=== PATIENT | female | born 1965 | race African-American/Black ===

== ENCOUNTER 2016-05-03 02:52 | Emergency (ER) | payer MEDICAID ==
[2016-05-03] MEDS ORDERED: ASPIRIN 81 MG TABLET, CHEWABLE PO ONE (02:53)
[2016-05-03] MEDS ORDERED: MORPHINE SULFATE 10 MG/ML INJ IV ONE (03:06)
[2016-05-03] MEDS ORDERED: METOCLOPRAMIDE HCL INJ/PF 10 MG/2 ML SDV IV ONE (03:06)
--- NOTE | 2016-05-03 03:08 | ER Document Report ---
Addendum entered and electronically signed by JESSICA MARCELINO PA 05/03/16 07:00: Course - Re-evaluation Re-evalutation: 05/03/16 clarification note: Patient was given full 324 mg of aspirin by EMS before arriving to the emergency department. - Vital Signs Vital signs: Temp Pulse Resp BP Pulse Ox 98.2 F 104 H 13 144/98 H 93 05/03/16 03:05 05/03/16 03:05 05/03/16 06:01 05/03/16 06:01 05/03/16 06:01 - Laboratory Result Diagrams: 05/03/16 03:30 05/03/16 03:30 Laboratory results interpreted by me: 05/03/16 05/03/16 03:30 03:30 Hgb 11.1 L Hct 34.7 L Potassium 3.3 L Carbon Dioxide 31 H BUN 21 H Creatinine 2.22 H Est GFR ( Amer) 28 L Est GFR (Non-Af Amer) 23 L Alkaline Phosphatase 129 H Albumin 3.0 L Original Note: ED General - General Chief Complaint: Chest Pain Stated Complaint: CHEST PAIN Time seen by provider: 03:00 Notes: Patient is a 50-year-old female that comes to the emergency department by EMS for chief complaint of chest pain, she states the chest pain started during the morning of 05/02/2016, she states she was doing housework when the symptoms started, she states she has a sharp pain radiating from her lower sternum to her back and also down her abdomen all the way to her mid to lower abdomen. Patient states she has also had nausea. Patient denies shortness of breath other than when the pain is sharp. Patient states she has had negative cardiac catheter 2 years ago. Past history of hypertension, chronic back pain and on pain management. Patient regularly takes Reglan for nausea and also takes Valium. TRAVEL OUTSIDE OF THE [place] IN LAST 30 DAYS: No - Related Data Allergies/Adverse Reactions: codeine [Codeine] Allergy (Mild, Verified 05/03/16 04:12) Itching ketorolac tromethamine [From Toradol] Allergy (Unknown, Verified 05/03/16 04:12) nalbuphine HCl [From Nubain] Allergy (Unknown, Verified 05/03/16 04:12) ondansetron HCl [From Zofran] Allergy (Unknown, Verified 05/03/16 04:12) droperidol [Droperidol] Allergy (Verified 05/03/16 04:12) heart racing, doesn't like how it makes her feel Past Medical History - General Information source: Patient - Social History Smoking Status: Never Smoker Frequency of alcohol use: None Drug Abuse: None Lives with: Family Family History: Reviewed & Not Pertinent - Past Medical History Cardiac Medical History: Reports: Hx Coronary Artery Disease, Hx Hypercholesterolemia, Hx Hypertension Pulmonary Medical History: Reports: Hx Pneumonia, Hx Sleep Apnea Neurological Medical History: Reports: Hx Migraine Endocrine Medical History: Reports: Hx Diabetes Mellitus Type 2 Renal/ Medical History: Reports: Hx Renal Insufficiency - stage 3 according to patient GI Medical History: Reports: Hx Gastroesophageal Reflux Disease, Hx Irritable Bowel Musculoskeltal Medical History: Reports Hx Arthritis, Reports Hx Fibromyalgia, Reports Hx Musculoskeletal Deformity, Reports Hx Musculoskeletal Trauma Psychiatric Medical History: Reports: Hx Post Traumatic Stress Disorder Past Surgical History: Reports: Hx Appendectomy, Hx Cholecystectomy, Hx Hysterectomy, Hx Orthopedic Surgery - RIGHT ANKLE SURGERY 01/2011, Hx Thyroid Surgery, Hx Vascular Surgery - port a cath R upper chest - Immunizations Hx Diphtheria, Pertussis, Tetanus Vaccination: Yes Hx Pneumococcal Vaccination: 04/22/11 Review of Systems - Review of Systems Constitutional: No symptoms reported EENT: No symptoms reported Cardiovascular: See HPI Respiratory: See HPI Gastrointestinal: See HPI Genitourinary: No symptoms reported Female Genitourinary: No symptoms reported Musculoskeletal: See HPI Skin: No symptoms reported Hematologic/Lymphatic: No symptoms reported Neurological/Psychological: No symptoms reported Physical Exam - Vital signs Vitals: BP Pulse Ox 197/112 H 94 05/03/16 03:00 05/03/16 03:00 Interpretation: Normal - General General appearance: Appears well, Alert In distress: None - HEENT Head: Normocephalic, Atraumatic Eyes: Normal Pupils: PERRL - Respiratory Respiratory status: No respiratory distress Chest status: Tender - Tenderness over the sternal area and parasternal areas on both the right and left anterior chest wall, tenderness is mild, no deformity or crepitus Breath sounds: Normal. No: Decreased air movement, Wheezing Chest palpation: Normal - Cardiovascular Rhythm: Regular. No: Tachycardia Heart sounds: Normal auscultation, S1 appreciated, S2 appreciated Murmur: No - Abdominal Inspection: Normal Distension: No distension Bowel sounds: Normal Tenderness: Nontender - Completely soft and nontender abdomen. No: Tender, Guarding Organomegaly: No organomegaly - Back Back: Normal, Nontender - Extremities General upper extremity: Normal inspection, Nontender, Normal color, Normal ROM , Normal temperature General lower extremity: Normal inspection, Nontender, Normal color, Normal ROM , Normal temperature, Normal weight bearing. No: Hussein's sign - Neurological Neuro grossly intact: Yes Cognition: Normal Orientation: AAOx4 [place] Coma Scale Eye Opening: Spontaneous [place] Coma Scale Verbal: Oriented [place] Coma Scale Motor: Obeys Commands [place] Coma Scale Total: 15 Speech: Normal Motor strength normal: LUE, RUE, LLE, RLE Sensory: Normal - Psychological Associated symptoms: Normal affect, Normal mood - Skin Skin Temperature: Warm Skin Moisture: Dry Skin Color: Normal Course - Re-evaluation Re-evalutation: Patient treated with pain and nausea medication. Patient points to her sternum area when asked where she is having pain, this is reproducible with palpation over the chest wall. Abdominal exam is completely benign. EKG shows questionable very slight nonsignificant elevation of ST segment in lead V2, no consecutive leads elevation, no other abnormality or change noted from prior EKG. Discussed with Dr. Ayoub. Kidney function baseline, laboratory workup a sling, cardiac enzymes negative. Chest x-ray negative. Patient has been having symptoms for almost 20 hours now. On reexamination patient only has pain in her back which is reportedly chronic. Discussed with Dr. Ayoub, recommendation that because of time. Monitoring, negative workup, nonspecific symptoms, reproducible chest wall pain, patient will be treated with lidocaine patches over the chest for chest wall pain, recommended follow-up closely with cardiology, and return for any concerning symptoms. Discussed in detail with patient who states understanding and agreement. - Vital Signs Vital signs: Temp Pulse Resp BP Pulse Ox 98.2 F 104 H 13 144/98 H 93 05/03/16 03:05 05/03/16 03:05 05/03/16 06:01 05/03/16 06:01 05/03/16 06:01 - Laboratory Result Diagrams: 05/03/16 03:30 05/03/16 03:30 Laboratory results interpreted by me: 05/03/16 05/03/16 03:30 03:30 Hgb 11.1 L Hct 34.7 L Potassium 3.3 L Carbon Dioxide 31 H BUN 21 H Creatinine 2.22 H Est GFR ( Amer) 28 L Est GFR (Non-Af Amer) 23 L Alkaline Phosphatase 129 H Albumin 3.0 L Discharge - Discharge Clinical Impression: Chest wall pain Chest pain Qualifiers: Chest pain type: unspecified Qualified Code(s): R07.9 - Chest pain, unspecified Condition: Stable Disposition: HOME, SELF-CARE Additional Instructions: Your heart workup does not show any acute abnormalities. Apply patches as directed if needed for your chest wall. Continue your current pain medication. Follow-up on Wednesday with Cardiology in [place]. Return to the emergency department for any concerning or worsening symptoms. Prescriptions: Lidocaine [Lidoderm 5% (700 mg) Transdermal Patch] 1 patch TP DAILY #30 adh..patch
[2016-05-03 03:46] LABS: ABSOLUTE EOSINOPHILS # (AUTO) 0.2 10^3/uL (0.0-0.6); ABSOLUTE MONOCYTES (AUTO) 0.5 10^3/uL (0.1-1.4); BASOPHILS % (AUTO) 0.5 % (0-2); EOSINOPHILS % (AUTO) 3.6 % (0-6); HEMATOCRIT 34.7 % (36.0-47.0); HEMOGLOBIN 11.1 g/dL (12.0-15.5); HGB HCT DIFFERENCE -1.4; MEAN CORPUSCULAR HGB CONC 32.1 g/dL (32.0-36.0); MEAN CORPUSCULAR VOLUME 84 fl (80-97); MONOCYTES % (AUTO) 8.8 % (3-13); RED BLOOD COUNT 4.12 10^6/uL (3.72-5.28); RED CELL DISTRIBUTION WIDTH 13.8 % (11.5-14.0); SEGMENTED NEUTROPHILS % (AUTO) 52.1 % (42-78); WHITE BLOOD COUNT 5.7 10^3/uL (4.0-10.5)
[2016-05-03] MEDS ORDERED: DIPHENHYDRAMINE HCL 50 MG/ML VIAL IV ONE (03:46)
[2016-05-03 04:03] LABS: ALANINE AMINOTRANSFERASE 19 U/L (9-52); ALKALINE PHOSPHATASE 129 U/L (38-126); ANION GAP 10 (5-19); ASPARTATE AMINO TRANSFERASE 21 U/L (14-36); BILIRUBIN,TOTAL 0.3 mg/dL (0.2-1.3); BLOOD UREA NITROGEN 21 mg/dL (7-20); CALCIUM 8.5 mg/dL (8.4-10.2); CARBON DIOXIDE 31 mmol/L (22-30); CHLORIDE 102 mmol/L (98-107); CREATINE KINASE 126 U/L (30-135); CREATININE RESULT 2.22 mg/dL (0.52-1.25); GLUCOSE 105 mg/dL (75-110); LIPASE 111.9 U/L (23-300); POTASSIUM 3.3 mmol/L (3.6-5.0); SODIUM 143.2 mmol/L (137-145); TOTAL PROTEIN 6.4 g/dL (6.3-8.2)
[2016-05-03 04:10] LABS: CREATINE KINASE MB 0.43 ng/mL (<4.55)
[2016-05-03 04:14] LABS: TROPONIN I < 0.012 ng/mL
[2016-05-03] MEDS ORDERED: FENTANYL CITRATE INJ/PF 100 MCG/2 ML AMPUL IV ONE (05:30)
[2016-05-03 07:04] VITALS: BP 127/93
--- NOTE | 2016-05-03 10:05 | EKG REPORT ---
SEVERITY:- BORDERLINE ECG - SINUS RHYTHM PROBABLE LEFT ATRIAL ABNORMALITY BORDERLINE T WAVE ABNORMALITIES : Confirmed by: Abigail Mandel MD 03-May-2016 10:05:01
== END 2016-05-03 07:40 | disposition home or self-care (01) ==
LOC: ER 02:52
DX: R07.89 Other chest pain (principal); R11.0 Nausea; E11.9 Type 2 diabetes mellitus without complications; I25.10 Atherosclerotic heart disease of native coronary artery without angina pectoris; I10 Essential (primary) hypertension; M54.9 Dorsalgia, unspecified; G89.29 Other chronic pain; Z79.899 Other long term (current) drug therapy; Z88.5 Allergy status to narcotic agent; Z88.8 Allergy status to other drugs, medicaments and biological substances; Z87.01 Personal history of pneumonia (recurrent)
CPT/HCPCS: 93005; 36591; 99285; 96374; 96375; 36415; 82553; 82550; 83690; 85025; 80053; 84484; 71010; 93010; J1200; J3010; J2765; J2270

== ENCOUNTER → 2016-06-08 | Outpatient (CLI) | payer MEDICAID ==
[2016-06-08 08:25] LABS: ABSOLUTE EOSINOPHILS # (AUTO) 0.1 10^3/uL (0.0-0.6); ABSOLUTE LYMPHOCYTES (AUTO) 1.9 10^3/uL (0.5-4.7); ABSOLUTE MONOCYTES (AUTO) 0.4 10^3/uL (0.1-1.4); ABSOLUTE NEUT (AUTO) 2.1 10^3/uL (1.7-8.2); BASOPHILS % (AUTO) 0.9 % (0-2); EOSINOPHILS % (AUTO) 3.1 % (0-6); HEMATOCRIT 39.2 % (36.0-47.0); HGB HCT DIFFERENCE -0.2; LYMPHOCYTES % (AUTO) 41.9 % (13-45); MEAN CORPUSCULAR HEMOGLOBIN 27.7 pg (27.0-33.4); MEAN CORPUSCULAR HGB CONC 33.1 g/dL (32.0-36.0); MEAN CORPUSCULAR VOLUME 84 fl (80-97); MONOCYTES % (AUTO) 9.1 % (3-13); RED BLOOD COUNT 4.69 10^6/uL (3.72-5.28); WHITE BLOOD COUNT 4.6 10^3/uL (4.0-10.5)
[2016-06-08 08:33] LABS: ALANINE AMINOTRANSFERASE 26 U/L (9-52); ALBUMIN 3.5 g/dL (3.5-5.0); ALKALINE PHOSPHATASE 139 U/L (38-126); ANION GAP 8 (5-19); ASPARTATE AMINO TRANSFERASE 22 U/L (14-36); BILIRUBIN,TOTAL 0.5 mg/dL (0.2-1.3); BLOOD UREA NITROGEN 29 mg/dL (7-20); CALCIUM 9.2 mg/dL (8.4-10.2); CARBON DIOXIDE 31 mmol/L (22-30); CHLORIDE 102 mmol/L (98-107); CREATININE RESULT 2.35 mg/dL (0.52-1.25); GLUCOSE 137 mg/dL (75-110); HEMATOCRIT 39.2 % (36.0-47.0); HGB HCT DIFFERENCE -0.2; MEAN CORPUSCULAR HEMOGLOBIN 27.7 pg (27.0-33.4); MEAN CORPUSCULAR HGB CONC 33.1 g/dL (32.0-36.0); MEAN CORPUSCULAR VOLUME 84 fl (80-97); POTASSIUM 4.2 mmol/L (3.6-5.0); RED BLOOD COUNT 4.69 10^6/uL (3.72-5.28); SODIUM 140.9 mmol/L (137-145); TOTAL PROTEIN 7.4 g/dL (6.3-8.2); URIC ACID 7.9 mg/dL (2.5-7.5); WHITE BLOOD COUNT 4.6 10^3/uL (4.0-10.5)
[2016-06-08 08:43] LABS: ALBUMIN 3.5 g/dL (3.5-5.0); ALKALINE PHOSPHATASE 139 U/L (38-126); ANION GAP 8 (5-19); ASPARTATE AMINO TRANSFERASE 22 U/L (14-36); BLOOD UREA NITROGEN 29 mg/dL (7-20); CALCIUM 9.2 mg/dL (8.4-10.2); CARBON DIOXIDE 31 mmol/L (22-30); CHLORIDE 102 mmol/L (98-107); CREATININE RESULT 2.35 mg/dL (0.52-1.25); GLUCOSE 137 mg/dL (75-110); POTASSIUM 4.2 mmol/L (3.6-5.0); SODIUM 140.9 mmol/L (137-145)
[2016-06-08 08:44] LABS: ALANINE AMINOTRANSFERASE 26 U/L (9-52); BILIRUBIN,TOTAL 0.5 mg/dL (0.2-1.3); TOTAL PROTEIN 7.4 g/dL (6.3-8.2); VALPROIC ACID 40.5 ug/mL (50.0-120.0)
[2016-06-08 09:05] LABS: ERYTHROCYTE SEDIMENTATION RATE 35 mm/hr (0-30)
== END ==
LOC: OD 07:35
PROVIDERS: ATTEND Nurse Practitioner Psychiatric/Mental Health
DX: M06.9 Rheumatoid arthritis, unspecified (principal); M54.5 Low back pain; M25.561 Pain in right knee; M25.562 Pain in left knee; M25.511 Pain in right shoulder; Z79.899 Other long term (current) drug therapy
CPT/HCPCS: 36415; 80053; 80164; 82140; 84550; 85025; 85027; 85652; 86038; 86430

== ENCOUNTER → 2016-06-13 | Outpatient (CLI) | payer MEDICAID | LOC: RAD 11:00 | PROVIDERS: ATTEND Physician Assistant | DX: M19.012 Primary osteoarthritis, left shoulder (principal); M25.512 Pain in left shoulder; M75.102 Unspecified rotator cuff tear or rupture of left shoulder, not specified as traumatic ==

== ENCOUNTER 2016-10-01 11:36 | Emergency (ER) | payer MEDICAID ==
--- NOTE | 2016-10-01 13:42 | ER Document Report ---
ED Extremity Problem, Lower - General Chief Complaint: Knee Pain Stated Complaint: RIGHT KNEE PAIN AND SWELLING Time Seen by Provider: 10/01/16 13:20 Mode of Arrival: Ambulatory Information source: Patient Notes: 51 yo female with 3rd episode of right knee pain. Hx arthritis, not gout. Recent left shoulder revision. No chest pain or SOB. No hx PE TRAVEL OUTSIDE OF THE [place] IN LAST 30 DAYS: No - Related Data Allergies/Adverse Reactions: codeine [Codeine] Allergy (Mild, Verified 05/03/16 04:12) Itching ketorolac tromethamine [From Toradol] Allergy (Unknown, Verified 05/03/16 04:12) nalbuphine HCl [From Nubain] Allergy (Unknown, Verified 05/03/16 04:12) ondansetron HCl [From Zofran] Allergy (Unknown, Verified 05/03/16 04:12) droperidol [Droperidol] Allergy (Verified 05/03/16 04:12) heart racing, doesn't like how it makes her feel Past Medical History - General Information source: Patient - Social History Smoking Status: Never Smoker Chew tobacco use (# tins/day): No Frequency of alcohol use: None Drug Abuse: None Lives with: Family Family History: Reviewed & Not Pertinent Patient has suicidal ideation: No Patient has homicidal ideation: No - Past Medical History Cardiac Medical History: Reports: Hx Coronary Artery Disease, Hx Hypercholesterolemia, Hx Hypertension Pulmonary Medical History: Reports: Hx Pneumonia, Hx Sleep Apnea Neurological Medical History: Reports: Hx Migraine Endocrine Medical History: Reports: Hx Diabetes Mellitus Type 2 Renal/ Medical History: Reports: Hx Renal Insufficiency - stage 3 according to patient. Denies: Hx Peritoneal Dialysis GI Medical History: Reports: Hx Gastroesophageal Reflux Disease, Hx Irritable Bowel Musculoskeltal Medical History: Reports Hx Arthritis, Reports Hx Fibromyalgia, Reports Hx Musculoskeletal Deformity, Reports Hx Musculoskeletal Trauma Psychiatric Medical History: Reports: Hx Post Traumatic Stress Disorder Past Surgical History: Reports: Hx Appendectomy, Hx Cholecystectomy, Hx Hysterectomy, Hx Orthopedic Surgery - RIGHT ANKLE SURGERY 01/2011, shoulder surgery, Hx Thyroid Surgery, Hx Vascular Surgery - port a cath R upper chest - Immunizations Hx Diphtheria, Pertussis, Tetanus Vaccination: No Hx Pneumococcal Vaccination: 04/22/11 Review of Systems - Review of Systems Constitutional: No symptoms reported EENT: No symptoms reported Cardiovascular: No symptoms reported Respiratory: No symptoms reported Gastrointestinal: No symptoms reported Genitourinary: No symptoms reported Female Genitourinary: No symptoms reported Musculoskeletal: See HPI Skin: No symptoms reported Hematologic/Lymphatic: No symptoms reported Neurological/Psychological: No symptoms reported Physical Exam - Vital signs Vitals: Temp Pulse Resp BP Pulse Ox 98.6 F 92 22 H 133/86 H 98 10/01/16 11:51 10/01/16 11:51 10/01/16 11:51 10/01/16 11:51 10/01/16 11:51 Interpretation: Normal - General General appearance: Appears well, Alert In distress: None - HEENT Head: Normocephalic, Atraumatic Eyes: Normal Pupils: PERRL Neck: Supple - Respiratory Respiratory status: No respiratory distress Chest status: Nontender Breath sounds: Normal Chest palpation: Normal - Cardiovascular Rhythm: Regular Heart sounds: Normal auscultation Murmur: No - Abdominal Inspection: Normal Distension: No distension Bowel sounds: Normal Tenderness: Nontender Organomegaly: No organomegaly - Back Back: Normal, Nontender - Extremities General upper extremity: Normal inspection, Nontender, Normal color, Normal ROM , Normal temperature General lower extremity: Normal inspection, Nontender, Normal color, Normal ROM , Normal temperature, Normal weight bearing. No: Hussein's sign Knee: Joint effusion - mild, Pain with ROM - warm, not red Calf: Nontender - Neurological Neuro grossly intact: Yes Cognition: Normal Orientation: AAOx4 [place] Coma Scale Eye Opening: Spontaneous [place] Coma Scale Verbal: Oriented Casandra Coma Scale Motor: Obeys Commands [place] Coma Scale Total: 15 Speech: Normal Motor strength normal: LUE, RUE, LLE, RLE Sensory: Normal - Psychological Associated symptoms: Normal affect, Normal mood - Skin Skin Temperature: Warm Skin Moisture: Dry Skin Color: Normal Course - Re-evaluation Re-evalutation: 10/01/16 15:34 Dr. Lopez called and the venous Doppler ultrasound is negative for DVT. The x-ray shows arthritis. CBC been added. 10/01/16 15:52 Added a uric acid. Ken bandage to the right knee and crutches. Prednisone for 4 days. Hemoglobin is 10.7 which is similar to 10.6 that she had October 2015, creatinine is 2.13, lower than -2015, renal insuff for several years 10/01/16 18:35 Patient called back and a uric acid is normal, she has an appointment on Wednesday with the orthopedist. - Vital Signs Vital signs: Temp Pulse Resp BP Pulse Ox 98.6 F 61 20 135/89 H 98 10/01/16 11:51 10/01/16 16:19 10/01/16 16:19 10/01/16 16:19 10/01/16 16:19 - Laboratory Result Diagrams: 10/01/16 14:45 10/01/16 14:30 Laboratory results interpreted by me: 10/01/16 10/01/16 10/01/16 14:30 14:30 14:45 Hgb 10.7 L Hct 33.0 L MCH 26.8 L RDW 14.3 H APTT 113.6 H BUN 26 H Creatinine 2.44 H Est GFR ( Amer) 25 L Est GFR (Non-Af Amer) 21 L Procedures - Immobilization Right Knee Time completed: 16:20 Pre-Proc Neuro Vasc Exam: Normal Immobilizer type: Ken wrap - padded, pt has walker at home, does not need the crutches Performed by: RN Post-Proc Neuro Vasc Exam: Normal Alignment checked and good: Yes Discharge - Discharge Clinical Impression: Arthritis of right knee, Chronic renal insufficiency Knee effusion Qualifiers: Laterality: right Qualified Code(s): M25.461 - Effusion, right knee Anemia Qualifiers: Anemia type: unspecified type Qualified Code(s): D64.9 - Anemia, unspecified Condition: Good Disposition: HOME, SELF-CARE Instructions: Use of Crutches ([facility]), Arthritis ([facility]), Steroid Medication Additional Instructions: elevate, cool compress crutches few days see the orthopedic doctor as planned on the to er sooner if worse prednisone for 3 more days Please complete the patient satisfaction survey if you get one, and return it.. If you do not receive a survey, then you can go to the [facility] website, [email or web address] and place your comments about your very good care. Thank you very much. It was a pleasure being your medical provider today. Prescriptions: Prednisone [Deltasone 20 mg Tablet] 40 mg PO DAILY #8 tablet Referrals: [facility]AL[facility],NO [Primary Care Provider] - Follow up as needed
--- NOTE | 2016-10-01 14:05 | RADIOLOGY REPORT (SQ) ---
EXAM DESCRIPTION: KNEE RIGHT 4 VIEWS COMPLETED DATE/TIME: 10/01/2016 1:46 pm REASON FOR STUDY: pain COMPARISON: None. NUMBER OF VIEWS: Four views. TECHNIQUE: AP, lateral, and both oblique radiographic images acquired of the right knee. LIMITATIONS: None. FINDINGS: MINERALIZATION: Normal. BONES: No acute fracture or dislocation. No worrisome bone lesions. Small osteophytes. JOINT: No effusion. No chondrocalcinosis. OTHER: No other significant finding. IMPRESSION: MILD DEGENERATIVE CHANGE. NO ACUTE FINDINGS. TECHNICAL DOCUMENTATION: JOB ID: [id number] [employer]- All Rights Reserved
[2016-10-01 15:00] LABS: PROTHROMBIN TIME 12.8 SEC (11.4-15.4)
[2016-10-01 15:03] LABS: PARTIAL THROMBOPLASTIN TIME 113.6 SEC (23.5-35.8)
[2016-10-01 15:35] LABS: ANION GAP 7 (5-19); BLOOD UREA NITROGEN 26 mg/dL (7-20); CALCIUM 8.5 mg/dL (8.4-10.2); CARBON DIOXIDE 30 mmol/L (22-30); CHLORIDE 105 mmol/L (98-107); CREATININE RESULT 2.44 mg/dL (0.52-1.25); GLUCOSE 90 mg/dL (75-110); SODIUM 142.4 mmol/L (137-145)
[2016-10-01] MEDS ORDERED: PREDNISONE 20 MG TABLET PO ONE (15:43)
[2016-10-01 15:44] LABS: ABSOLUTE EOSINOPHILS # (AUTO) 0.1 10^3/uL (0.0-0.6); ABSOLUTE LYMPHOCYTES (AUTO) 1.7 10^3/uL (0.5-4.7); ABSOLUTE MONOCYTES (AUTO) 0.5 10^3/uL (0.1-1.4); ABSOLUTE NEUT (AUTO) 2.2 10^3/uL (1.7-8.2); BASOPHILS % (AUTO) 0.7 % (0-2); EOSINOPHILS % (AUTO) 2.7 % (0-6); HEMOGLOBIN 10.7 g/dL (12.0-15.5); HGB HCT DIFFERENCE -0.9; LYMPHOCYTES % (AUTO) 36.6 % (13-45); MEAN CORPUSCULAR HEMOGLOBIN 26.8 pg (27.0-33.4); MEAN CORPUSCULAR HGB CONC 32.4 g/dL (32.0-36.0); MEAN CORPUSCULAR VOLUME 83 fl (80-97); MONOCYTES % (AUTO) 11.7 % (3-13); RED BLOOD COUNT 3.98 10^6/uL (3.72-5.28); RED CELL DISTRIBUTION WIDTH 14.3 % (11.5-14.0); SEGMENTED NEUTROPHILS % (AUTO) 48.3 % (42-78); WHITE BLOOD COUNT 4.6 10^3/uL (4.0-10.5)
--- NOTE | 2016-10-01 16:15 | XCELERA REPORT ---
[address] [address] Lower Extremity Venous Evaluation Name: DAREN ROSS Age: 51 yrs Gender: Female : 1965 Patient Status: Emergency Patient Location: ER Study Date: 10/01/2016 01:44 PM Procedure: Color flow and duplex imaging bilaterally of the veins of the lower extremities as well as the Common Femoral veins. Reason For Study: calf pain Ordering Physician: CASSIE ROBISON Performed By: Rachel Ramirez Right Sided Venous Evaluation Normal vessel filling wall to wall, compression and augmentation as well as Colour flow down to the infrageniculate veins. Left Sided Venous Evaluation Normal vessel filling wall to wall, compression and augmentation as well as Colour flow down to the infrageniculate veins. Critical Findings Called in to Lianne Tellez at about 1500. Interpretation Summary No duplex evidence of DVT or obstruction in the bilateral lower extremities. : CASSIE ROBISON > Kayode Lopez
[2016-10-01 16:21] VITALS: BP 135/89
== END 2016-10-01 16:10 | disposition home or self-care (01) ==
LOC: ER 11:36
DX: M17.11 Unilateral primary osteoarthritis, right knee (principal); M25.461 Effusion, right knee; M25.561 Pain in right knee; I12.9 Hypertensive chronic kidney disease with stage 1 through stage 4 chronic kidney disease, or unspecified chronic kidney disease; E11.22 Type 2 diabetes mellitus with diabetic chronic kidney disease; N18.3 Chronic kidney disease, stage 3 (moderate); D64.9 Anemia, unspecified; I25.10 Atherosclerotic heart disease of native coronary artery without angina pectoris; Z98.890 Other specified postprocedural states; Z88.5 Allergy status to narcotic agent; Z88.8 Allergy status to other drugs, medicaments and biological substances
CPT/HCPCS: 36591; 99284; 36415; 84550; 85025; 85610; 85730; 80048; 93970 ×2; 73564; J7512

== ENCOUNTER → 2016-11-12 | Outpatient (CLI) | payer MEDICAID ==
--- NOTE | 2016-11-12 10:06 | RADIOLOGY REPORT (SQ) ---
EXAM DESCRIPTION: MRI LT UPPER JOINT WITHOUT COMPLETED DATE/TIME: 11/12/2016 8:14 am REASON FOR STUDY: PAIN IN LEFT SHOULDER (M25.512) M25.512 PAIN IN LEFT SHOULDER COMPARISON: 06/13/2016 TECHNIQUE: Left shoulder images acquired and stored on PACS. Multiplanar imaging to include fat sens itive sequences such as T1, water sensitive sequences such as FST2/STIR, cartilage sensitive sequence s such as FSPD/gradient-echo sequences. LIMITATIONS: Susceptibility and motion artifact. FINDINGS: There are anchoring sutures from prior rotator cuff repair. Small amount of fluid surroun ding the cuff. Increased signal along the articular surface of the posterior supraspinatus/anterior infraspinatus. Questionable small bursal surface perforation series 8 image 10. No full-thickness t ear. Biceps labral attachment again not well defined. Attenuated extra-articular biceps in the bicipital groove. Advanced glenohumeral joint arthropathy with full-thickness defects in the glenoid cartilage. Subchondral edema humeral head especially anteriorly. Small glenohumeral joint effusion. IMPRESSION: 1. Technical limitations. There has been rotator cuff repair. Partial-thickness articular surface r ecurrent tear and suspected bursal surface perforation. No full-thickness tear identified. Peritend initis. 2. Advanced glenohumeral joint arthropathy. Small glenohumeral joint effusion. TECHNICAL DOCUMENTATION: JOB ID: [id number] [employer]- All Rights Reserved
== END ==
LOC: RAD 06:56
PROVIDERS: ATTEND Physician Assistant
DX: M25.512 Pain in left shoulder (principal)

== ENCOUNTER 2017-01-18 17:25 | Emergency (ER) | payer MEDICAID ==
[2017-01-18] MEDS ORDERED: NORMAL SALINE 500 ML IV PRN (18:34)
--- NOTE | 2017-01-18 18:35 | ER Document Report ---
ED Medical Screen (RME) - General Chief Complaint: Headache Stated Complaint: HEADACHE,NAUSEA Time Seen by Provider: 01/18/17 18:31 Mode of Arrival: Ambulatory Information source: Patient Notes: This is a 51-year-old female with a history of migraines (hypertension, borderline diabetes, chronic kidney disease. Patient presents with headache consistent with migraine for the past 2 and half days. She does states she has been under a lot of stress breath (her is going to get a CABG). This is not the worst headache of her life and she has had migraines which are persisted for weeks. She denies any fever, chills, or neck pain. TRAVEL OUTSIDE OF THE [place] IN LAST 30 DAYS: No - Related Data Allergies/Adverse Reactions: codeine [Codeine] Allergy (Mild, Verified 01/18/17 17:31) Itching ketorolac tromethamine [From Toradol] Allergy (Unknown, Verified 01/18/17 17:31) nalbuphine HCl [From Nubain] Allergy (Unknown, Verified 01/18/17 17:31) ondansetron HCl [From Zofran] Allergy (Unknown, Verified 01/18/17 17:31) droperidol [Droperidol] Allergy (Verified 01/18/17 17:31) heart racing, doesn't like how it makes her feel Past Medical History - Social History Chew tobacco use (# tins/day): No Frequency of alcohol use: None Drug Abuse: None - Past Medical History Cardiac Medical History: Reports: Hx Coronary Artery Disease, Hx Hypercholesterolemia, Hx Hypertension Pulmonary Medical History: Reports: Hx Pneumonia, Hx Sleep Apnea Neurological Medical History: Reports: Hx Migraine Endocrine Medical History: Reports: Hx Diabetes Mellitus Type 2 Renal/ Medical History: Reports: Hx Renal Insufficiency - stage 3 according to patient. Denies: Hx Peritoneal Dialysis GI Medical History: Reports: Hx Gastroesophageal Reflux Disease, Hx Irritable Bowel Musculoskeltal Medical History: Reports Hx Arthritis, Reports Hx Fibromyalgia, Reports Hx Musculoskeletal Deformity, Reports Hx Musculoskeletal Trauma Psychiatric Medical History: Reports: Hx Post Traumatic Stress Disorder Past Surgical History: Reports: Hx Appendectomy, Hx Cholecystectomy, Hx Hysterectomy, Hx Orthopedic Surgery - RIGHT ANKLE SURGERY 01/2011, shoulder surgery, Hx Thyroid Surgery, Hx Vascular Surgery - port a cath R upper chest - Immunizations Hx Diphtheria, Pertussis, Tetanus Vaccination: No History of Influenza Vaccine for 01/2017 - 06/2017 Season: Yes Physical Exam - Vital signs Vitals: Temp Pulse Resp BP Pulse Ox 98.6 F 64 18 183/89 H 98 01/18/17 17:33 01/18/17 17:33 01/18/17 17:33 01/18/17 17:33 01/18/17 17:33 Course - Vital Signs Vital signs: Temp Pulse Resp BP Pulse Ox 98.6 F 64 18 183/89 H 98 01/18/17 17:33 01/18/17 17:33 01/18/17 17:33 01/18/17 17:33 01/18/17 17:33
[2017-01-18] MEDS ORDERED: DIPHENHYDRAMINE HCL 50 MG/ML VIAL IV ONE (19:00)
[2017-01-18] MEDS ORDERED: PROCHLORPERAZINE EDISYLATE INJ 10 MG/2 ML VIAL IV ONE (19:00)
--- NOTE | 2017-01-18 19:01 | ER Document Report ---
HPI - HPI Patient complains to provider of: DUKES Onset: Other - 2.5 days Onset/Duration: Persistent Quality of pain: Achy Pain Level: 5 Context: Patient presents complaining of left sided headache pain for the past 2 and half days. Patient does report nausea and vomiting 4 episodes today. Patient denies any fever or head injury. Patient does complain of increased stress at home that she feels is causing her headache pain. Patient states that her is getting ready to have a CABG procedure performed and this is got her worried. Patient states that she does get migraine headaches periodically and feels that this pain is typical of headaches that she has had in the past. Associated Symptoms: Headache, Nausea, Vomiting. denies: Nonproductive cough, Productive cough, Earache, Fever Exacerbated by: Other - light and noise Relieved by: Denies Similar symptoms previously: Yes Recently seen / treated by doctor: No - ROS ROS below otherwise negative: Yes Systems Reviewed and Negative: Yes All other systems reviewed and negative - CONSTITUTIONAL Constitutional: DENIES: Fever - EENT EENT: DENIES: Sore Throat, Ear Pain - NEURO Neurology: REPORTS: Headache. DENIES: Weakness, Vision blurred, Dizzinesss / Vertigo - CARDIOVASCULAR Cardiovascular: DENIES: Chest pain - RESPIRATORY Respiratory: DENIES: Coughing - GASTROINTESTINAL Gastrointestinal: REPORTS: Nausea, Patient vomiting. DENIES: Abdominal Pain - REPRODUCTIVE Reproductive: DENIES: : - MUSCULOSKELETAL Musculoskeletal: DENIES: Extremity pain, Back Pain, Neck Pain - DERM Skin Color: Normal Skin Problems: None Past Medical History - General Information source: Patient - Social History Smoking Status: Never Smoker Chew tobacco use (# tins/day): No Frequency of alcohol use: None Drug Abuse: None Occupation: none Lives with: Spouse/Significant other Family History: Reviewed & Not Pertinent - Past Medical History Cardiac Medical History: Reports: Hx Coronary Artery Disease, Hx Hypercholesterolemia, Hx Hypertension Pulmonary Medical History: Reports: Hx Pneumonia, Hx Sleep Apnea Neurological Medical History: Reports: Hx Migraine Endocrine Medical History: Reports: Hx Diabetes Mellitus Type 2 Renal/ Medical History: Reports: Hx Renal Insufficiency - stage 3 according to patient. Denies: Hx Peritoneal Dialysis GI Medical History: Reports: Hx Gastroesophageal Reflux Disease, Hx Irritable Bowel Musculoskeltal Medical History: Reports Hx Arthritis, Reports Hx Fibromyalgia, Reports Hx Musculoskeletal Deformity, Reports Hx Musculoskeletal Trauma Psychiatric Medical History: Reports: Hx Post Traumatic Stress Disorder Past Surgical History: Reports: Hx Appendectomy, Hx Cholecystectomy, Hx Hysterectomy, Hx Orthopedic Surgery - RIGHT ANKLE SURGERY 01/2011, shoulder surgery, Hx Thyroid Surgery, Hx Vascular Surgery - port a cath R upper chest - Immunizations Hx Diphtheria, Pertussis, Tetanus Vaccination: No Hx Pneumococcal Vaccination: 04/22/11 Vertical Provider Document - CONSTITUTIONAL Agree With Documented VS: Yes Exam Limitations: No Limitations General Appearance: WD/WN, No Apparent Distress - INFECTION CONTROL TRAVEL OUTSIDE OF THE [place] IN LAST 30 DAYS: No - HEENT HEENT: Atraumatic, Normal ENT Exam, Normocephalic, PERRLA - NECK Neck: Normal Inspection, Supple, Other - No meningismus. negative: Lymphadenopathy-Left, Lymphadenopathy-Right - RESPIRATORY Respiratory: Breath Sounds Normal, No Respiratory Distress O2 Sat by Pulse Oximetry: 98 - CARDIOVASCULAR Cardiovascular: Regular Rate, Regular Rhythm, No Murmur - BACK Back: Normal Inspection - MUSCULOSKELETAL/EXTREMETIES Musculoskeletal/Extremeties: MAEW, FROM - NEURO Level of Consciousness: Awake, Alert, Appropriate Motor/Sensory: No Motor Deficit Notes: No focal neurologic deficit - DERM Integumentary: Warm, Dry, No Rash Course - Re-evaluation Re-evalutation: 01/18/17 21:18 Patient reports that she typically takes her nighttime dose of clonidine at 9: 00. Pt reports DUKES pain is down to 3/5 scale, pt would like additional medication. Will provide patient's evening dose of her blood pressure medication in addition to Tylenol to manage her headache symptoms. 01/18/17 22:19 Patient reports headache pain is resolved and is requesting to be discharged home. Patient reminded that she was given her evening dose of her blood pressure medicine so she will not need to take this when she gets home tonight. Patient verbalized understanding. Discussed plan of care with patient encourage patient to follow-up with her primary doctor as well as possible neurologist for further management of any chronic headache symptoms. - Vital Signs Vital signs: Temp Pulse Resp BP Pulse Ox 98.6 F 64 18 183/89 H 98 01/18/17 17:33 01/18/17 17:33 01/18/17 17:33 01/18/17 17:33 01/18/17 17:33 Discharge - Discharge Clinical Impression: Hx of essential hypertension Headache Qualifiers: Headache type: unspecified Headache chronicity pattern: acute headache Intractability: not intractable Qualified Code(s): R51 - Headache Condition: Stable Disposition: HOME, SELF-CARE Instructions: Intravenous Compazine for Headaches ([facility]), Use of Diphenhydramine , Headache ([facility]) Additional Instructions: Return immediately for any new or worsening symptoms Followup with your primary care provider, call tomorrow to make a followup appointment Your given your evening dose of your blood pressure medication, clonidine, he will not need to take this whenever he returned home tonight Forms: Elevated Blood Pressure Referrals: MARYNO [Primary Care Provider] - Follow up as needed JACKIE MUNOZ DO [NO LOCAL MD] - Follow up tomorrow WILLIE IRAHETA MD [ACTIVE STAFF] - Follow up in 3-5 days
[2017-01-18] MEDS ORDERED: CLONIDINE HCL 0.2 MG TABLET PO ONE (21:16)
[2017-01-18] MEDS ORDERED: ACETAMINOPHEN 325 MG TABLET PO ONE (21:18)
[2017-01-18 22:46] VITALS: BP 142/80
== END 2017-01-18 22:45 | disposition home or self-care (01) ==
LOC: ER 17:25
DX: R51 Headache (principal); I10 Essential (primary) hypertension; R11.2 Nausea with vomiting, unspecified; I25.10 Atherosclerotic heart disease of native coronary artery without angina pectoris; E78.00 Pure hypercholesterolemia, unspecified; E11.9 Type 2 diabetes mellitus without complications; Z95.1 Presence of aortocoronary bypass graft; Z90.49 Acquired absence of other specified parts of digestive tract; Z90.710 Acquired absence of both cervix and uterus
CPT/HCPCS: 36591; 99283; 96374; 96375; J3490 ×2; J1200; J0780; J7040

== ENCOUNTER 2017-02-08 12:24 | Emergency (ER) | payer MEDICAID ==
[2017-02-08] MEDS ORDERED: BUTALB/ACETAMINOPHEN/CAFFEINE 1 TAB EACH PO ONE (13:09)
--- NOTE | 2017-02-08 13:54 | RADIOLOGY REPORT (SQ) ---
EXAM DESCRIPTION: CHEST PA/LAT COMPLETED DATE/TIME: 02/08/2017 1:33 pm REASON FOR STUDY: sob COMPARISON: 05/20/2013, 11/20/2011 EXAM PARAMETERS: NUMBER OF VIEWS: two views TECHNIQUE: Digital Frontal and Lateral radiographic views of the chest acquired. RADIATION DOSE: NA LIMITATIONS: none FINDINGS: LUNGS AND PLEURA: No opacities, masses or pneumothorax. No pleural effusion. MEDIASTINUM AND HILAR STRUCTURES: No masses or contour abnormalities. HEART AND VASCULAR STRUCTURES: Heart normal size. No evidence for failure. BONES: Left humeral head replacement HARDWARE: Right-sided permanent central line tip superior vena cava. Clips right upper quadrant post cholecystectomy. OTHER: No other significant finding. IMPRESSION: No acute changes TECHNICAL DOCUMENTATION: JOB ID: [id number] [employer]- All Rights Reserved
--- NOTE | 2017-02-08 14:45 | ER Document Report ---
ED General - General Chief Complaint: Edema Stated Complaint: SWELLING IN LEGS Time Seen by Provider: 02/08/17 13:06 Mode of Arrival: Ambulatory Information source: Patient Notes: 51 yo non smoker, htn, non dm, hyperlipedemic female with bilateral lower legs swollen and ankles with painful walking-back of knees and bottoms of feeet, not as bad as yesterday. just had double bypass so has migraine headache. Due to his surgery she has been doing a lot of walking. Developed shortness of breath and midline retrosternal chest pain while sitting this morning at 8:30 am , constant like she couldn't get air in. Hx. 2 Cardiac cath negative 2015 in [place]. No HX PE. No fever. No recent URI. No n/v/d. TRAVEL OUTSIDE OF THE [place] IN LAST 30 DAYS: No - Related Data Allergies/Adverse Reactions: codeine [Codeine] Allergy (Mild, Verified 02/08/17 14:55) Itching ketorolac tromethamine [From Toradol] Allergy (Unknown, Verified 02/08/17 14:55) nalbuphine HCl [From Nubain] Allergy (Unknown, Verified 02/08/17 14:55) ondansetron HCl [From Zofran] Allergy (Unknown, Verified 02/08/17 14:55) droperidol [Droperidol] Allergy (Verified 02/08/17 14:55) heart racing, doesn't like how it makes her feel Past Medical History - General Information source: Patient - Social History Smoking Status: Never Smoker Frequency of alcohol use: None Drug Abuse: None Lives with: Spouse/Significant other Family History: Reviewed & Not Pertinent Patient has suicidal ideation: No Patient has homicidal ideation: No - Past Medical History Cardiac Medical History: Reports: Hx Coronary Artery Disease, Hx Hypercholesterolemia, Hx Hypertension Pulmonary Medical History: Reports: Hx Pneumonia, Hx Sleep Apnea Neurological Medical History: Reports: Hx Migraine Endocrine Medical History: Reports: Hx Diabetes Mellitus Type 2 - no meds Renal/ Medical History: Reports: Hx Renal Insufficiency - stage 3 according to patient GI Medical History: Reports: Hx Gastroesophageal Reflux Disease, Hx Irritable Bowel Musculoskeltal Medical History: Reports Hx Arthritis, Reports Hx Fibromyalgia, Reports Hx Musculoskeletal Deformity, Reports Hx Musculoskeletal Trauma Psychiatric Medical History: Reports: Hx Post Traumatic Stress Disorder Past Surgical History: Reports: Hx Appendectomy, Hx Cholecystectomy, Hx Hysterectomy, Hx Orthopedic Surgery - RIGHT ANKLE SURGERY 01/2011, shoulder surgery, Hx Thyroid Surgery, Hx Vascular Surgery - port a cath R upper chest - Immunizations Hx Diphtheria, Pertussis, Tetanus Vaccination: No Hx Pneumococcal Vaccination: 04/22/11 Review of Systems - Review of Systems Constitutional: See HPI EENT: No symptoms reported Cardiovascular: See HPI Respiratory: See HPI Gastrointestinal: No symptoms reported Genitourinary: No symptoms reported Female Genitourinary: No symptoms reported Musculoskeletal: No symptoms reported Skin: No symptoms reported Hematologic/Lymphatic: No symptoms reported Neurological/Psychological: See HPI Physical Exam - Vital signs Vitals: Temp Pulse Resp BP Pulse Ox 98.6 F 82 18 148/87 H 95 02/08/17 12:40 02/08/17 12:40 02/08/17 12:40 02/08/17 12:40 02/08/17 12:40 Interpretation: Normal - General General appearance: Appears well, Alert In distress: None - HEENT Head: Normocephalic, Atraumatic Eyes: Normal Conjunctiva: Normal Extraocular movements intact: Yes Pupils: PERRL Mucous membranes: Normal Pharynx: Normal Neck: Supple. No: Lymphadenopathy - Respiratory Respiratory status: No respiratory distress Chest status: Nontender Breath sounds: Normal Chest palpation: Normal - Cardiovascular Rhythm: Regular Heart sounds: Normal auscultation Murmur: No - Abdominal Inspection: Normal Distension: No distension Bowel sounds: Normal Tenderness: Nontender. No: Tender Organomegaly: No organomegaly - Back Back: Normal, Nontender. No: CVA tenderness - Extremities General upper extremity: Normal inspection, Nontender, Normal color, Normal ROM , Normal temperature General lower extremity: Normal inspection, Nontender, Edema - pitting edema both legs pretibial to ankles, 2+ PT's, Normal color, Normal ROM, Normal temperature, Normal weight bearing. No: Hussein's sign - Neurological Neuro grossly intact: Yes Cognition: Normal Orientation: AAOx4 [place] Coma Scale Eye Opening: Spontaneous Casandra Coma Scale Verbal: Oriented Casandra Coma Scale Motor: Obeys Commands [place] Coma Scale Total: 15 Speech: Normal Motor strength normal: LUE, RUE, LLE, RLE Sensory: Normal - Psychological Associated symptoms: Normal affect, Normal mood - Skin Skin Temperature: Warm Skin Moisture: Dry Skin Color: Normal Skin irregularity: negative: Rash Course - Re-evaluation Re-evalutation: 02/08/17 17:24 lung VQ scan is negative, chest xray is negative. Creatinine is more elevated at 3.12, BUN 27, troponin negative. EKG NSR. no change from previous EKG. will consult with dr. gutiérrez about dispo and call dr. castorena about the Creatinine. 02/08/17 17:[address] castorena again. 02/08/17 18:11 Dr. Castorena called back and he wants to see her in the office on Wednesday, she will have to call his office tomorrow morning and tell the front end ui developer that Dr. Castorena was notified in the emergency department and wants to see her Wednesday morning. He also wants her to have an outpatient form to get a CBC and Chem-7 on . 02/08/17 18:[address] gutiérrez if second troponin is negative and ekg no changes can be discharged home 02/08/17 18:53 ekg no change, dr. gutiérrez evaluated. 02/08/17 19:23 Second troponin is negative. Patient will be discharged home - Vital Signs Vital signs: Temp Pulse Resp BP Pulse Ox 98.6 F 82 11 L 116/84 93 02/08/17 12:40 02/08/17 12:40 02/08/17 19:01 02/08/17 19:01 02/08/17 19:01 - Laboratory Result Diagrams: 02/08/17 14:50 02/08/17 14:50 Laboratory results interpreted by me: 02/08/17 02/08/17 02/08/17 14:50 14:50 14:50 RBC 3.65 L Hgb 10.6 L Hct 31.7 L RDW 14.4 H Seg Neutrophils % 35.6 L Lymphocytes % 46.8 H Absolute Neutrophils 1.6 L D-Dimer 1.46 H Sodium 145.2 H BUN 27 H Creatinine 3.12 H Est GFR ( Amer) 19 L Est GFR (Non-Af Amer) 16 L Alkaline Phosphatase 165 H Creatine Kinase 216 H Discharge - Discharge Clinical Impression: Bilateral lower extremity edema, Shortness of breath, chronic renal insufficiency, Peripheral edema Headache Qualifiers: Headache type: unspecified Headache chronicity pattern: episodic headache Intractability: not intractable Qualified Code(s): R51 - Headache Chest pain Qualifiers: Chest pain type: unspecified Qualified Code(s): R07.9 - Chest pain, unspecified Anemia Qualifiers: Anemia type: unspecified type Qualified Code(s): D64.9 - Anemia, unspecified Condition: Good Disposition: HOME, SELF-CARE Instructions: Intravenous Compazine for Headaches ([facility]), Chest Pain of Unclear Cause ([facility]), Use of Diphenhydramine, Edema, Peripheral ([facility]), Migraine Headache ([facility]), Reglan ([facility]) Additional Instructions: return to er if symptoms worsen elevate legs on pillows while reclined call dr. castorena in the morning for appt on wednesday, tell the front end ui developer that he spoke with the nurse practitioner and he wants to see her wednesday take your headache medications see your doctor at [facility] in [place] and take all the labwork, ekg, imaging studies Please complete the patient satisfaction survey if you get one, and return it.. If you do not receive a survey, then you can go to the [facility] website, [email or web address] and place your comments about your very good care. Thank you very much. It was a pleasure being your medical provider today. Forms: Follow-Up Laboratory Testing Referrals: Adelia CASTORENA MD [ACTIVE STAFF] - 02/12/17 (call dr. castorena office in the morning for wednesday appt. make sure you tell the staff that dr. castorena spoke with the MACHINE FILLER SHREDDER in the ER and wants to see you then)
[2017-02-08] MEDS ORDERED: PROCHLORPERAZINE EDISYLATE INJ 10 MG/2 ML VIAL IV ONE (14:50)
[2017-02-08] MEDS ORDERED: DIPHENHYDRAMINE HCL 50 MG/ML VIAL IV ONE ×2 (14:50→18:15)
[2017-02-08] MEDS ORDERED: ASPIRIN 81 MG TABLET, CHEWABLE PO ONE (14:56)
[2017-02-08 15:01] LABS: ABSOLUTE EOSINOPHILS # (AUTO) 0.2 10^3/uL (0.0-0.6); ABSOLUTE LYMPHOCYTES (AUTO) 2.1 10^3/uL (0.5-4.7); ABSOLUTE MONOCYTES (AUTO) 0.6 10^3/uL (0.1-1.4); ABSOLUTE NEUT (AUTO) 1.6 10^3/uL (1.7-8.2); BASOPHILS % (AUTO) 0.6 % (0-2); EOSINOPHILS % (AUTO) 4.6 % (0-6); HEMATOCRIT 31.7 % (36.0-47.0); HEMOGLOBIN 10.6 g/dL (12.0-15.5); HGB HCT DIFFERENCE 0.1; LYMPHOCYTES % (AUTO) 46.8 % (13-45); MEAN CORPUSCULAR HEMOGLOBIN 28.9 pg (27.0-33.4); MEAN CORPUSCULAR HGB CONC 33.3 g/dL (32.0-36.0); MEAN CORPUSCULAR VOLUME 87 fl (80-97); MONOCYTES % (AUTO) 12.4 % (3-13); RED BLOOD COUNT 3.65 10^6/uL (3.72-5.28); RED CELL DISTRIBUTION WIDTH 14.4 % (11.5-14.0); SEGMENTED NEUTROPHILS % (AUTO) 35.6 % (42-78); WHITE BLOOD COUNT 4.5 10^3/uL (4.0-10.5)
[2017-02-08 15:21] LABS: ALANINE AMINOTRANSFERASE 26 U/L (9-52); ALBUMIN 3.7 g/dL (3.5-5.0); ALKALINE PHOSPHATASE 165 U/L (38-126); ANION GAP 9 (5-19); ASPARTATE AMINO TRANSFERASE 24 U/L (14-36); BILIRUBIN,DIRECT 0.4 mg/dL (0.0-0.4); BILIRUBIN,TOTAL 0.4 mg/dL (0.2-1.3); BLOOD UREA NITROGEN 27 mg/dL (7-20); CALCIUM 8.7 mg/dL (8.4-10.2); CARBON DIOXIDE 30 mmol/L (22-30); CHLORIDE 106 mmol/L (98-107); CREATINE KINASE 216 U/L (30-135); CREATININE RESULT 3.12 mg/dL (0.52-1.25); GLUCOSE 105 mg/dL (75-110); POTASSIUM 4.4 mmol/L (3.6-5.0); SODIUM 145.2 mmol/L (137-145); TOTAL PROTEIN 7.4 g/dL (6.3-8.2)
[2017-02-08 15:33] LABS: CREATINE KINASE MB 1.61 ng/mL (<4.55)
[2017-02-08 15:34] LABS: TROPONIN I < 0.012 ng/mL
--- NOTE | 2017-02-08 17:13 | RADIOLOGY REPORT (SQ) ---
EXAM DESCRIPTION: NM LUNG VENT/PERF SCAN COMPLETED DATE/TIME: 02/08/2017 5:05 pm REASON FOR STUDY: chest pain, sob, d dime 1.47 COMPARISON: Chest films 02/08/2017, 05/03/2016 RADIONUCLIDE AND DOSE: 5.0 millicuries TC-99m MAA Intravenous 33 millicuries TC-99m DTPA Inhaled aerosol TECHNIQUE: Eight views of the lungs acquired post ventilation of DTPA aerosol. Eight matching views of the lungs acquired following injection of MAA. LIMITATIONS: None. FINDINGS: VENTILATION: Symmetric and homogeneous distribution of DTPA aerosol during ventilatory pha se. No significant areas of photopenia. PERFUSION: Perfusion images with normal homogenous activity and no wedge-shaped or segmental defects. No ventilation-perfusion mismatches. OTHER: No other significant finding. IMPRESSION: NORMAL VENTILATION-PERFUSION LUNG SCAN. NEGATIVE FOR PULMONARY EMBOLI. TECHNICAL DOCUMENTATION: JOB ID: [id number] [employer]- All Rights Reserved
[2017-02-08] MEDS ORDERED: METOCLOPRAMIDE HCL INJ/PF 10 MG/2 ML SDV IV ONE (17:27)
[2017-02-08] MEDS ORDERED: CLONIDINE HCL 0.2 MG TABLET PO ONE (17:56)
--- NOTE | 2017-02-08 19:12 | EKG REPORT ---
SEVERITY:- ABNORMAL ECG - SINUS RHYTHM CONSIDER LEFT VENTRICULAR HYPERTROPHY ST ELEVATION SUGGESTS [facility] : Confirmed by: Darwin Curiel 08-Feb-2017 19:11:38
--- NOTE | 2017-02-08 19:12 | EKG REPORT ---
SEVERITY:- ABNORMAL ECG - SINUS RHYTHM LEFT VENTRICULAR HYPERTROPHY : Confirmed by: Darwin Curiel 08-Feb-2017 19:11:42
[2017-02-08 19:58] VITALS: BP 116/84
== END 2017-02-08 19:50 | disposition home or self-care (01) ==
LOC: ER 12:24
DX: M79.89 Other specified soft tissue disorders (principal); R07.9 Chest pain, unspecified; D64.9 Anemia, unspecified; R06.02 Shortness of breath; R60.9 Edema, unspecified; E11.22 Type 2 diabetes mellitus with diabetic chronic kidney disease; I12.9 Hypertensive chronic kidney disease with stage 1 through stage 4 chronic kidney disease, or unspecified chronic kidney disease; N18.9 Chronic kidney disease, unspecified; I25.10 Atherosclerotic heart disease of native coronary artery without angina pectoris; E78.00 Pure hypercholesterolemia, unspecified; Z90.49 Acquired absence of other specified parts of digestive tract; Z90.710 Acquired absence of both cervix and uterus
CPT/HCPCS: 93005; 36591; 96376; 99285; 96374; 96375; 36415; 82553; 82550; 85025; 80053; 84484; 85379; 71020; 78582; 93010; A9540; A9567; J3490 ×2; J1200; J2765; J0780; Q9969

== ENCOUNTER → 2017-02-11 | Outpatient (CLI) | payer MEDICAID ==
[2017-02-11 11:53] LABS: HEMATOCRIT 30.1 % (36.0-47.0); HEMOGLOBIN 10.3 g/dL (12.0-15.5); HGB HCT DIFFERENCE 0.8; MEAN CORPUSCULAR HEMOGLOBIN 29.5 pg (27.0-33.4); MEAN CORPUSCULAR HGB CONC 34.3 g/dL (32.0-36.0); MEAN CORPUSCULAR VOLUME 86 fl (80-97); RED CELL DISTRIBUTION WIDTH 14.4 % (11.5-14.0); WHITE BLOOD COUNT 3.9 10^3/uL (4.0-10.5)
[2017-02-11 12:18] LABS: ANION GAP 8 (5-19); BLOOD UREA NITROGEN 26 mg/dL (7-20); CALCIUM 8.9 mg/dL (8.4-10.2); CARBON DIOXIDE 26 mmol/L (22-30); CHLORIDE 109 mmol/L (98-107); CREATININE RESULT 3.24 mg/dL (0.52-1.25); GLUCOSE 126 mg/dL (75-110); POTASSIUM 4.5 mmol/L (3.6-5.0); SODIUM 143.2 mmol/L (137-145)
== END ==
LOC: LAB 11:31
PROVIDERS: ATTEND Nurse Practitioner Family
DX: N18.9 Chronic kidney disease, unspecified (principal); R60.9 Edema, unspecified
CPT/HCPCS: 36415; 80048; 85027

== ENCOUNTER 2017-02-12 16:48 | Observation (INO) | payer MEDICAID ==
[2017-02-12] MEDS ORDERED: ACETAMINOPHEN 325 MG TABLET PO PRN (17:45)
[2017-02-12] MEDS ORDERED: HYDRALAZINE HCL INJ/PF 20 MG/1 ML SDV IV PRN (17:51)
[2017-02-12] MEDS ORDERED: CLONIDINE HCL 0.1 MG TABLET PO ONE (17:54)
[2017-02-12] MEDS ORDERED: OXYCODONE HCL IR 5 MG TABLET PO PRN (18:16)
[2017-02-12] MEDS ORDERED: DIPHENHYDRAMINE HCL 50 MG/ML VIAL IV ONE ×2 (18:24)
[2017-02-12] MEDS ORDERED: BUTALB/ACETAMINOPHEN/CAFFEINE 1 TAB EACH PO PRN (18:26)
[2017-02-12] MEDS ORDERED: MAGNESIUM SULFATE/D5W 1 GM/100 ML RTUPB IV SCH (18:30)
[2017-02-12] MEDS ORDERED: LORAZEPAM INJ 2 MG/1 ML VIAL IV ONE (18:31)
[2017-02-12] MEDS ORDERED: MORPHINE SULFATE 10 MG/ML INJ IV ONE (18:41)
[2017-02-12] MEDS ORDERED: DIAZEPAM 5 MG TABLET PO PRN (19:00)
[2017-02-12] MEDS ORDERED: INFLUENZA ADLT QUAD (36MOS+) 2017-18 VAC 0.5 ML SYR IM PRN (19:33)
[2017-02-12] MEDS: PROMETHAZINE HCL INJ 25 MG/1 ML VIAL IV PRN (21:11)
[2017-02-12 21:12] LABS: ABSOLUTE EOSINOPHILS # (AUTO) 0.1 10^3/uL (0.0-0.6); ABSOLUTE LYMPHOCYTES (AUTO) 1.5 10^3/uL (0.5-4.7); ABSOLUTE MONOCYTES (AUTO) 0.6 10^3/uL (0.1-1.4); ABSOLUTE NEUT (AUTO) 4.8 10^3/uL (1.7-8.2); BASOPHILS % (AUTO) 0.4 % (0-2); EOSINOPHILS % (AUTO) 1.8 % (0-6); HEMATOCRIT 31.1 % (36.0-47.0); HEMOGLOBIN 10.5 g/dL (12.0-15.5); HGB HCT DIFFERENCE 0.4; LYMPHOCYTES % (AUTO) 21.2 % (13-45); MEAN CORPUSCULAR HGB CONC 33.9 g/dL (32.0-36.0); MEAN CORPUSCULAR VOLUME 86 fl (80-97); MONOCYTES % (AUTO) 8.7 % (3-13); RED BLOOD COUNT 3.63 10^6/uL (3.72-5.28); RED CELL DISTRIBUTION WIDTH 13.9 % (11.5-14.0); SEGMENTED NEUTROPHILS % (AUTO) 67.9 % (42-78); WHITE BLOOD COUNT 7.1 10^3/uL (4.0-10.5)
[2017-02-12] MEDS: CLONIDINE HCL 0.1 MG TABLET PO SCH (21:14)
[2017-02-12] MEDS: GABAPENTIN 300 MG CAPSULE PO SCH (21:15)
[2017-02-12] MEDS: ESCITALOPRAM OXALATE 10 MG TABLET PO SCH (21:16)
[2017-02-12] MEDS ORDERED: NIFEDIPINE 30 MG TAB.ER.24 PO SCH (22:00)
[2017-02-12] MEDS ORDERED: LORAZEPAM INJ 2 MG/1 ML VIAL IV SCH (22:00)
[2017-02-12] MEDS ORDERED: ATORVASTATIN CALCIUM 40 MG TABLET PO SCH (22:00)
[2017-02-12] MEDS ORDERED: ZOLPIDEM TARTRATE 5 MG TABLET PO SCH (22:00)
[2017-02-12 22:02] LABS: ANION GAP 11 (5-19); BLOOD UREA NITROGEN 26 mg/dL (7-20); CALCIUM 8.8 mg/dL (8.4-10.2); CARBON DIOXIDE 28 mmol/L (22-30); CHLORIDE 106 mmol/L (98-107); CREATININE RESULT 3.03 mg/dL (0.52-1.25); GLUCOSE 182 mg/dL (75-110); PHOSPHORUS 4.3 mg/dL (2.5-4.5); POTASSIUM 3.9 mmol/L (3.6-5.0); SODIUM 144.7 mmol/L (137-145)
[2017-02-13] MEDS: METOCLOPRAMIDE HCL 10 MG TABLET PO SCH ×3 (00:18→12:10)
[2017-02-13] MEDS ORDERED: MAGNESIUM SULFATE/D5W 1 GM/100 ML RTUPB IV ONE (00:23)
[2017-02-13] MEDS ORDERED: MAGNESIUM SULFATE/D5W 1 GM/100 ML RTUPB IV SCH (00:45)
[2017-02-13] MEDS: PROMETHAZINE HCL INJ 25 MG/1 ML VIAL IV PRN (07:32)
[2017-02-13] MEDS: CLONIDINE HCL 0.1 MG TABLET PO SCH ×2 (07:33→13:08)
[2017-02-13] MEDS: OXYCODONE HCL IR 5 MG TABLET PO PRN ×2 (07:44→12:55)
--- NOTE | 2017-02-13 08:34 | RADIOLOGY REPORT (SQ) ---
EXAM DESCRIPTION: CT HEAD WITHOUT COMPLETED DATE/TIME: 02/13/2017 8:08 am REASON FOR STUDY: headache blurred vision facial numbness COMPARISON: 01/08/2014 TECHNIQUE: Axial images acquired through the brain without intravenous contrast. Images reviewed wi th bone, brain and subdural windows. Images stored on PACS. All CT scanners at this facility use dose modulation, iterative reconstruction, and/or weight based d osing when appropriate to reduce radiation dose to as low as reasonably achievable (ALARA). [facility]: Dose Right [facility]: CareDose [facility]: Dose Right [facility]: Teradose 4D [facility]: [employer] RADIATION DOSE: mGy. LIMITATIONS: None. FINDINGS: VENTRICLES: Normal size and contour. CEREBRUM: No masses. No hemorrhage. No midline shift. No evidence for acute infarction. Normal gra y/white matter differentiation. No areas of low density in the white matter. CEREBELLUM: No masses. No hemorrhage. No alteration of density. No evidence for acute infarction. EXTRAAXIAL SPACES: No fluid collections. No masses. ORBITS AND GLOBE: No intra- or extraconal masses. Normal contour of globe without masses. CALVARIUM: No fracture. PARANASAL SINUSES: No fluid or mucosal thickening. SOFT TISSUES: No mass or hematoma. OTHER: No other significant finding. IMPRESSION: NORMAL BRAIN CT WITHOUT CONTRAST. EVIDENCE OF ACUTE STROKE: NO. COMMENT: Quality ID # [id number]: Final reports with documentation of one or more dose reduction techniques (e.g., Automated exposure control, adjustment of the mA and/or kV according to patient size, use of iterative reconstruction technique) TECHNICAL DOCUMENTATION: JOB ID: [id number] [employer]- All Rights Reserved
[2017-02-13] MEDS: ESCITALOPRAM OXALATE 10 MG TABLET PO SCH (09:50)
[2017-02-13] MEDS: BACLOFEN 10 MG TABLET PO SCH ×2 (09:51→13:08)
[2017-02-13] MEDS: GABAPENTIN 300 MG CAPSULE PO SCH (09:51)
[2017-02-13] MEDS ORDERED: FUROSEMIDE INJ/PF 40 MG/4 ML SDV IV SCH (10:00)
[2017-02-13] MEDS ORDERED: AMLODIPINE BESYLATE 5 MG TABLET PO SCH (10:00)
[2017-02-13] MEDS ORDERED: HYDROMORPHONE HCL INJ/PF 2 MG/ML AMPULE IV ONE (10:30)
[2017-02-13] MEDS ORDERED: PROCHLORPERAZINE EDISYLATE INJ 10 MG/2 ML VIAL IV ONE (10:30)
[2017-02-13] MEDS ORDERED: PANTOPRAZOLE SODIUM 40 MG VIAL IV ONE (10:30)
[2017-02-13] MEDS ORDERED: DIPHENHYDRAMINE HCL 50 MG/ML VIAL IV ONE (10:30)
--- NOTE | 2017-02-13 11:48 | PDOC H&P ---
History of Present Illness Admission Date/PCP: 02/12/17 17:45 YONY DE LA GARZA NP Patient complains of: Elevated blood pressure with headache and blurred vision History of Present Illness: DAREN ROSS is a 51 year old female history of CKD stage III, hypertension, diabetes diet-controlled, fibromyalgia, depression, chronic pain patient is a direct admit from Dr. Castorena's office,nephrology, for hypertensive emergency. There patient stated that her blood pressures were in the 200 systolics. Patient states she has headaches despite having a history of migraines. Difference about her headache this time is that she has some right sided facial numbness and lip numbness. Patient also states that her vision is blurred. Patient does have some chest discomfort however this is chronic. Patient states that she just really wants something for headache. Patient states she normally gets Benadryl Compazine and some sort of narcotic through her port. Past Medical History Cardiac Medical History: Reports: Coronary Artery Disease, Hyperlipidema, Hypertension Pulmonary Medical History: Reports: Pneumonia, Sleep Apnea Neurological Medical History: Reports: Migraine Endocrine Medical History: Reports: Diabetes Mellitus Type 2 - no meds GI Medical History: Reports: Gastroesophageal Reflux Disease Musculoskeltal Medical History: Reports: Arthritis, Fibromyalgia Psychiatric Medical History: Reports: Post Traumatic Stress Disorder Past Surgical History Past Surgical History: Reports: Appendectomy, Cholecystectomy, Hysterectomy, Orthopedic Surgery - RIGHT ANKLE SURGERY 01/2011, shoulder surgery, Vascular Surgery - port a cath R upper chest Denies: Pacemaker Social History Information Source: Patient Lives with: Spouse/Significant other Smoking Status: Never Smoker Frequency of Alcohol Use: None Hx Recreational Drug Use: No Hx Prescription Drug Abuse: No - Advance Directive Resuscitation Status: Full Code Family History Family History: Hypertension Parental Family History Reviewed: Yes Children Family History Reviewed: No Sibling(s) Family History Reviewed.: No Medication/Allergy Home Medications: Amlodipine Besylate [Norvasc 10 mg Tablet] 10 mg PO DAILY 02/12/17 Aripiprazole [Abilify 15 mg Tablet] 15 mg PO DAILY 02/12/17 Butalb/Acetaminophen/Caffeine [Bqbdnu-Eclnebsh-Eobx 50-325-40] 1 tab PO Q4HP PRN 02/12/17 Clonidine HCl [Catapres 0.3 mg Tablet] 0.3 mg PO Q8 02/12/17 Diazepam [Valium 5 mg Tablet] 5 mg PO Q12HP PRN 02/12/17 Divalproex Sodium [Depakote ER 500 mg Tab.sr] 500 mg PO QHS 02/12/17 Escitalopram Oxalate [Lexapro] 40 mg PO DAILY 02/12/17 Eszopiclone [Lunesta] 3 mg PO QHS 02/12/17 Fluticasone Propionate [Flonase Nasal [place] 50 Mcg/Downey 16 gm] 2 sprays NASL DAILY 02/12/17 Folic Acid [Folvite 1 mg Tablet] 1 mg PO DAILY 02/12/17 Gabapentin [Neurontin 300 mg Capsule] 300 mg PO Q12 02/12/17 Lisinopril [Zestril] 20 mg PO Q12 02/12/17 Methocarbamol [Robaxin 750 mg Tablet] 750 mg PO Q6HP PRN 02/12/17 Metoclopramide HCl [Reglan 10 mg Tablet] 10 mg PO ACHS 02/12/17 Oxycodone HCl 15 mg PO Q6HP PRN 02/12/17 Oxycodone HCl [Oxycontin Sr 40 mg Tablet] 40 mg PO Q12HP PRN 02/12/17 Promethazine HCl [Phenergan 25 mg Tablet] 25 mg PO Q6HP PRN 02/12/17 Rosuvastatin Calcium [Crestor] 20 mg PO QHS 02/12/17 Allergies/Adverse Reactions: codeine [Codeine] Allergy (Mild, Verified 02/08/17 14:55) Itching ketorolac tromethamine [From Toradol] Allergy (Unknown, Verified 02/08/17 14:55) nalbuphine HCl [From Nubain] Allergy (Unknown, Verified 02/08/17 14:55) ondansetron HCl [From Zofran] Allergy (Unknown, Verified 02/08/17 14:55) droperidol [Droperidol] Allergy (Verified 02/08/17 14:55) heart racing, doesn't like how it makes her feel Review of Systems Constitutional: PRESENT: headache(s). ABSENT: chills, fever(s), weight gain, weight loss Eyes: PRESENT: visual disturbances Ears: ABSENT: hearing changes Cardiovascular: PRESENT: chest pain, edema. ABSENT: dyspnea on exertion, orthropnea, palpitations Respiratory: ABSENT: cough, hemoptysis Gastrointestinal: ABSENT: abdominal pain, constipation, diarrhea, hematemesis, hematochezia, nausea, vomiting Genitourinary: ABSENT: dysuria, hematuria Musculoskeletal: ABSENT: joint swelling Integumentary: ABSENT: rash, wounds Neurological: PRESENT: paresthesias, tingling Psychiatric: PRESENT: anxiety, depression. ABSENT: homidical ideation, suicidal ideation Endocrine: ABSENT: cold intolerance, heat intolerance, polydipsia, polyuria Hematologic/Lymphatic: ABSENT: easy bleeding, easy bruising Physical Exam Vital Signs: Vitals not yet recorded General appearance: PRESENT: no acute distress, obese Head exam: PRESENT: normocephalic Eye exam: PRESENT: EOMI. ABSENT: scleral icterus Ear exam: PRESENT: normal external ear exam Mouth exam: PRESENT: moist, tongue midline Neck exam: ABSENT: carotid bruit, JVD, lymphadenopathy, thyromegaly Respiratory exam: PRESENT: clear to auscultation salazar. ABSENT: rales, rhonchi, wheezes Cardiovascular exam: PRESENT: RRR. ABSENT: diastolic murmur, rubs, systolic murmur Pulses: PRESENT: normal dorsalis pedis pul Vascular exam: PRESENT: normal capillary refill GI/Abdominal exam: PRESENT: normal bowel sounds, soft. ABSENT: distended, guarding, mass, organolmegaly, rebound, tenderness Rectal exam: PRESENT: deferred Extremities exam: PRESENT: full ROM, pedal edema. ABSENT: calf tenderness, clubbing Neurological exam: PRESENT: alert, awake, oriented to person, oriented to place , oriented to time, oriented to situation, CN II-XII grossly intact. ABSENT: motor sensory deficit Psychiatric exam: PRESENT: appropriate affect, normal mood. ABSENT: homicidal ideation, suicidal ideation Skin exam: PRESENT: dry, intact, warm. ABSENT: cyanosis, rash Assessment & Plan - Diagnosis (1) Hypertensive emergency Is this a current diagnosis for this admission?: Yes Plan: Patient complaining of headache, blurred vision and paresthesias of the face and lip. Patient states that her blood pressures were in the 200s at her doctor 's appointment however we do not have those recorded here. Patient be given a dose of hydralazine 20 mg IV push, clonidine 0.1 mg 1, Lasix 40 mg IV push and restarted on her home medications. Patient is on telemetry. CT of the head was ordered patient is complaining of headache blurred vision and paresthesias of the face and lip. (2) Migraine Qualifiers: Migraine type: unspecified Intractability: intractable Is this a current diagnosis for this admission?: Yes Plan: Patient has a history of chronic headaches however worsened by the hypertension. Will control patient blood pressure. Patient given Phenergan Benadryl and 1 time dose of morphine. Patient also given a dose of magnesium. Patient will be continued on Fioricet. (3) CKD (chronic kidney disease) stage 4, GFR 15-29 ml/min Is this a current diagnosis for this admission?: Yes Plan: Chemistry was ordered for the patient. Patient follows closely with Dr. Castorena for her CKD stage III. We will continue to monitor closely. (4) Fibromyalgia Is this a current diagnosis for this admission?: Yes Plan: Is chronic in nature. Will continue patient gabapentin. (5) Bilateral lower extremity edema Is this a current diagnosis for this admission?: Yes Plan: Patient has mild edema bilateral lower extremities. Will start patient on Lasix 40 mg IV daily. She also recently had a venous Doppler which was negative for DVT. (6) Chest pain Qualifiers: Chest pain type: unspecified Qualified Code(s): R07.9 - Chest pain, unspecified Is this a current diagnosis for this admission?: Yes Plan: She has history of chest pain most likely happens when her blood pressure is elevated. Patient states she normally takes nitroglycerin for this however because she has a headache she does not want to take it. Will trend serial troponins and place patient on telemetry. She was recently here and had a VQ scan done which was low probability for PE. - Time Time Spent: 30 to 50 Minutes Medications reviewed and adjusted accordingly: Yes Anticipated discharge: Home Within: within 48 hours
--- NOTE | 2017-02-13 12:00 | PDOC PROGRESS REPORT ---
Subjective Progress Note for:: 02/13/17 Subjective:: Patient is a 51-year-old female with multiple medical problems admitted for hypertensive emergency. CT head was negative. She now states that she has chest pain. Patient still continues finding of a migraine stating that only Compazine Benadryl and a narcotic helps. Patient blood pressures have significantly improved and have not been elevated during this admission. Explained to patient that she has a history of migraines however will further evaluate her chest pain and if that is negative then she will be discharged home. Physical Exam Vital Signs: Temp Pulse Resp BP Pulse Ox 98.0 F 83 16 148/81 H 98 02/13/17 07:18 02/13/17 07:18 02/13/17 07:18 02/13/17 07:18 02/13/17 07:18 Intake & Output 02/12/17 02/13/17 02/14/17 06:59 06:59 06:59 Intake Total 200 Output Total 0 Balance 200 Weight 111.8 kg General appearance: PRESENT: mild distress, obese Head exam: PRESENT: normocephalic Eye exam: PRESENT: EOMI. ABSENT: scleral icterus Ear exam: PRESENT: normal external ear exam Mouth exam: PRESENT: moist Neck exam: ABSENT: carotid bruit, JVD, lymphadenopathy, thyromegaly Respiratory exam: PRESENT: clear to auscultation salazar. ABSENT: rales, rhonchi, wheezes Cardiovascular exam: PRESENT: RRR. ABSENT: diastolic murmur, rubs, systolic murmur Pulses: PRESENT: normal dorsalis pedis pul Vascular exam: PRESENT: normal capillary refill GI/Abdominal exam: PRESENT: normal bowel sounds, soft. ABSENT: distended, guarding, mass, organolmegaly, rebound, tenderness Rectal exam: PRESENT: deferred Extremities exam: PRESENT: full ROM, pedal edema. ABSENT: calf tenderness, clubbing Neurological exam: PRESENT: alert, awake, oriented to person, oriented to place , oriented to time, oriented to situation, CN II-XII grossly intact. ABSENT: motor sensory deficit Psychiatric exam: PRESENT: appropriate affect, normal mood. ABSENT: homicidal ideation, suicidal ideation Skin exam: PRESENT: dry, intact, warm. ABSENT: cyanosis, rash Results Laboratory Results: 02/12/17 20:40 02/12/17 20:40 02/12/17 02/12/17 20:40 20:40 WBC 7.1 RBC 3.63 L Hgb 10.5 L Hct 31.1 L MCV 86 MCH 29.0 MCHC 33.9 RDW 13.9 Plt Count 189 Seg Neutrophils % 67.9 Lymphocytes % 21.2 Monocytes % 8.7 Eosinophils % 1.8 Basophils % 0.4 Absolute Neutrophils 4.8 Absolute Lymphocytes 1.5 Absolute Monocytes 0.6 Absolute Eosinophils 0.1 Absolute Basophils 0.0 Sodium 144.7 Potassium 3.9 Chloride 106 Carbon Dioxide 28 Anion Gap 11 BUN 26 H Creatinine 3.03 H Est GFR ( Amer) 20 L Est GFR (Non-Af Amer) 16 L Glucose 182 H Calcium 8.8 Phosphorus 4.3 Magnesium 2.0 02/12/17 02/13/17 20:40 03:55 Troponin I 0.031 0.026 Impressions: Head CT 02/13/17 00:00 IMPRESSION: NORMAL BRAIN CT WITHOUT CONTRAST. EVIDENCE OF ACUTE STROKE: NO. Assessment & Plan - Diagnosis (1) Hypertensive emergency Is this a current diagnosis for this admission?: Yes Plan: Patient complaining of headache, blurred vision and paresthesias of the face and lip. Patient states that her blood pressures were in the 200s at her doctor 's appointment however we do not have those recorded here. Patient blood pressures are adequately controlled at this time on home medications. Patient continues to complain of headache however she has history of migraines. (2) Migraine Qualifiers: Migraine type: unspecified Intractability: intractable Is this a current diagnosis for this admission?: Yes Plan: Patient continues to have a migraine and is insisting on cocktail of benadryl, compazine and dilaudid. Will attempt this cocktail and continue patient fioricet. Patient may benefit from follow up with neurology if not already done so. (3) CKD (chronic kidney disease) stage 4, GFR 15-29 ml/min Is this a current diagnosis for this admission?: Yes Plan: Patient follows closely with Dr. Castorena for her CKD stage III. Will monitor. (4) Fibromyalgia Is this a current diagnosis for this admission?: Yes Plan: Is chronic in nature. Will continue patient gabapentin. (5) Bilateral lower extremity edema Is this a current diagnosis for this admission?: Yes Plan: Patient has mild edema bilateral lower extremities. Will start patient on Lasix 40 mg IV daily. She also recently had a venous Doppler which was negative for DVT. (6) Chest pain Qualifiers: Chest pain type: unspecified Qualified Code(s): R07.9 - Chest pain, unspecified Is this a current diagnosis for this admission?: Yes Plan: Patient chest pain is atypical in nature. Troponins negative. Will order EKG and consult cardiology as patient has had 2 cardiac caths in the past and follows with cardiology. Patient does not want nitro as she states that it worsens her headache. - Time Time Spent with patient: 15-24 minutes Anticipated discharge: Home Within: within 48 hours - Patient should be able to go home if there is nothing to do from a cardiac standpoint. Patient has history of chronic migraines and should be referred to a neurologist if not already do so.
--- NOTE | 2017-02-13 12:29 | PDOC DISCHARGE SUMMARY ---
General - Admit/Disc Date/PCP Admission Date/Primary Care Provider: 02/12/17 17:45 YONY DE LA GARZA NP Discharge Date: 02/13/17 - Discharge Diagnosis (1) Hypertensive emergency Is this a current diagnosis for this admission?: Yes (2) Migraine Is this a current diagnosis for this admission?: Yes (3) CKD (chronic kidney disease) stage 4, GFR 15-29 ml/min Is this a current diagnosis for this admission?: Yes (4) Fibromyalgia Is this a current diagnosis for this admission?: Yes (5) Bilateral lower extremity edema Is this a current diagnosis for this admission?: Yes (6) Chest pain Is this a current diagnosis for this admission?: Yes - Additional Information Resuscitation Status: Full Code Discharge Diet: Cardiac, Diabetic Discharge Activity: Activity As Tolerated Home Medications: Amlodipine Besylate [Norvasc 10 mg Tablet] 10 mg PO DAILY 02/12/17 Aripiprazole [Abilify 15 mg Tablet] 15 mg PO DAILY 02/12/17 Butalb/Acetaminophen/Caffeine [Cqnxkg-Dotpqnxo-Gqmx 50-325-40] 1 tab PO Q4HP PRN 02/12/17 Clonidine HCl [Catapres 0.3 mg Tablet] 0.3 mg PO Q8 02/12/17 Diazepam [Valium 5 mg Tablet] 5 mg PO Q12HP PRN 02/12/17 Divalproex Sodium [Depakote ER 500 mg Tab.sr] 500 mg PO QHS 02/12/17 Escitalopram Oxalate [Lexapro] 40 mg PO DAILY 02/12/17 Eszopiclone [Lunesta] 3 mg PO QHS 02/12/17 Fluticasone Propionate [Flonase Nasal [place] 50 Mcg/[place] 16 gm] 2 sprays NASL DAILY 02/12/17 Folic Acid [Folvite 1 mg Tablet] 1 mg PO DAILY 02/12/17 Gabapentin [Neurontin 300 mg Capsule] 300 mg PO Q12 02/12/17 Lisinopril [Zestril] 20 mg PO Q12 02/12/17 Methocarbamol [Robaxin 750 mg Tablet] 750 mg PO Q6HP PRN 02/12/17 Metoclopramide HCl [Reglan 10 mg Tablet] 10 mg PO ACHS 02/12/17 Oxycodone HCl 15 mg PO Q6HP PRN 02/12/17 Oxycodone HCl [Oxycontin Sr 40 mg Tablet] 40 mg PO Q12HP PRN 02/12/17 Promethazine HCl [Phenergan 25 mg Tablet] 25 mg PO Q6HP PRN 02/12/17 Rosuvastatin Calcium [Crestor] 20 mg PO QHS 02/12/17 History of Present Illness History of Present Illness: DAREN ROSS is a 51 year old female history of CKD stage III, hypertension, diabetes diet-controlled, fibromyalgia, depression, chronic pain patient is a direct admit from Dr. Castorena's office,nephrology, for hypertensive emergency. There patient stated that her blood pressures were in the 200 systolics. Patient states she has headaches despite having a history of migraines. Difference about her headache this time is that she has some right sided facial numbness and lip numbness. Patient also states that her vision is blurred. Patient does have some chest discomfort however this is chronic. Patient states that she just really wants something for headache. Patient states she normally gets Benadryl Compazine and some sort of narcotic through her port. Hospital Course Hospital Course: (1) Hypertensive emergency Patient complaining of headache, blurred vision and paresthesias of the face and lip. Patient states that her blood pressures were in the 200s at her doctor 's appointment however we do not have those recorded here. Patient blood pressures are adequately controlled at this time on home medications. Patient continues to complain of headache however she has history of migraines. Patient is doing better. (2) Migraine Patient continues to have a migraine and is insisting on cocktail of benadryl, compazine and dilaudid. Will attempt this cocktail and continue patient fioricet. Patient may benefit from follow up with neurology if not already done so. (3) CKD (chronic kidney disease) stage 4, GFR 15-29 ml/min Patient follows closely with Dr. Castorena for her CKD stage III. Patient can follow-up with him on discharge. (4) Fibromyalgia Is chronic in nature. Will continue patient gabapentin. (5) Bilateral lower extremity edema Patient has mild edema bilateral lower extremities. Given Lasix during hospitalization. She also recently had a venous Doppler which was negative for DVT. (6) Chest pain Patient chest pain is atypical in nature. Troponins negative. EKG is unremarkable. Patient evaluated by Dr. Etienne cardiology and states that this is atypical chest pain more likely related to her chronic pain. He would like to see her in his clinic and have her do a sleep study as her uncontrolled hypertension and headaches might be secondary to obstructive sleep apnea. Physical Exam Vital Signs: Temp Pulse Resp BP Pulse Ox 98.0 F 83 16 148/81 H 98 02/13/17 07:18 02/13/17 07:18 02/13/17 07:18 02/13/17 07:18 02/13/17 07:18 Intake & Output 02/12/17 02/13/17 02/14/17 06:59 06:59 06:59 Intake Total 200 Output Total 0 Balance 200 Weight 111.8 kg General appearance: PRESENT: mild distress, obese Head exam: PRESENT: atraumatic, normocephalic Eye exam: PRESENT: EOMI. ABSENT: scleral icterus Ear exam: PRESENT: normal external ear exam Mouth exam: PRESENT: moist Neck exam: ABSENT: carotid bruit, JVD, lymphadenopathy, thyromegaly Respiratory exam: PRESENT: clear to auscultation salazar. ABSENT: rales, rhonchi, wheezes Cardiovascular exam: PRESENT: RRR. ABSENT: diastolic murmur, rubs, systolic murmur Pulses: PRESENT: normal dorsalis pedis pul Vascular exam: PRESENT: normal capillary refill GI/Abdominal exam: PRESENT: normal bowel sounds, soft. ABSENT: distended, guarding, mass, organolmegaly, rebound, tenderness Rectal exam: PRESENT: deferred Extremities exam: PRESENT: full ROM, pedal edema. ABSENT: calf tenderness, clubbing Neurological exam: PRESENT: alert, awake, oriented to person, oriented to place , oriented to time, oriented to situation, CN II-XII grossly intact. ABSENT: motor sensory deficit Psychiatric exam: PRESENT: appropriate affect, normal mood. ABSENT: homicidal ideation, suicidal ideation Skin exam: PRESENT: dry, intact, warm. ABSENT: cyanosis, rash Results Laboratory Results: 02/12/17 20:40 02/12/17 20:40 02/12/17 02/12/17 20:40 20:40 WBC 7.1 RBC 3.63 L Hgb 10.5 L Hct 31.1 L MCV 86 MCH 29.0 MCHC 33.9 RDW 13.9 Plt Count 189 Seg Neutrophils % 67.9 Lymphocytes % 21.2 Monocytes % 8.7 Eosinophils % 1.8 Basophils % 0.4 Absolute Neutrophils 4.8 Absolute Lymphocytes 1.5 Absolute Monocytes 0.6 Absolute Eosinophils 0.1 Absolute Basophils 0.0 Sodium 144.7 Potassium 3.9 Chloride 106 Carbon Dioxide 28 Anion Gap 11 BUN 26 H Creatinine 3.03 H Est GFR ( Amer) 20 L Est GFR (Non-Af Amer) 16 L Glucose 182 H Calcium 8.8 Phosphorus 4.3 Magnesium 2.0 02/12/17 02/13/17 02/13/17 20:40 03:55 11:18 Troponin I 0.031 0.026 0.014 He has had no other Impressions: Head CT 02/13/17 00:00 IMPRESSION: NORMAL BRAIN CT WITHOUT CONTRAST. EVIDENCE OF ACUTE STROKE: NO. Qualifiers PATEINT BEING DISCHARGED WITH ANY OF THE FOLLOWING DIAGNOSIS?: No Plan Discharge Plan: Patient is being discharged home to care of her . Patient should follow- up with cardiology Dr. Curiel after Wednesday. He does recommend that patient have a sleep study she may have obstructive sleep apnea which may be contributing to her headaches and hypertension. Patient migraines and chronic pain can be managed at home with oral medications. Time Spent: Greater than 30 Minutes
[2017-02-13] MEDS ORDERED: CLONIDINE HCL 0.1 MG TABLET PO ONE (13:03)
[2017-02-13] MEDS ORDERED: LORAZEPAM INJ 2 MG/1 ML VIAL IV ONE (13:04)
--- NOTE | 2017-02-13 13:36 | EKG REPORT ---
SEVERITY:- ABNORMAL ECG - SINUS RHYTHM LEFT VENTRICULAR HYPERTROPHY : Confirmed by: Darwin Curiel 13-Feb-2017 13:36:09
[2017-02-13] MEDS ORDERED: LABETALOL HCL INJ 20 MG/4 ML DISP.SYRIN IV ONE (14:30)
--- NOTE | 2017-02-13 15:05 | PDOC CONSULTATION ---
Consultation Consult Date: 02/13/17 Attending physician:: KAELA SOSA Consult reason:: Chest pain History of Present Illness Admission Date/PCP: 02/12/17 17:45 YONY DE LA GARZA NP Patient complains of: Chest pain History of Present Illness: DAREN ROSS is a 51 year old female history of CKD stage III, hypertension, diabetes diet-controlled, fibromyalgia, depression, chronic pain patient is a direct admit from Dr. Castorena's office,nephrology, for hypertensive emergency. There patient stated that her blood pressures were in the 200 systolics. Patient states she has headaches despite having a history of migraines. Difference about her headache this time is that she has some right sided facial numbness and lip numbness. Patient also states that her vision is blurred. Patient does have some chest discomfort however this is chronic. Patient states that she just really wants something for headache. Patient states she normally gets Benadryl Compazine and some sort of narcotic through her port. I was asked to evaluate patient because of chest pain. Patient describes history of chronic chest pain. Patient describes having had at least 3 heart catheterization, the last one was at [facility] in [place]. Patient claims that no blockages were noted. Patient describes history of fibromyalgia and chronic pain syndrome. Patient claims that each time she has high blood pressure, she she hurts in the chest. So far cardiac enzymes and EKGs has been relatively unremarkable. Patient claims difficult to control hypertension. Patient also describes that she was previously diagnosed to have sleep apnea but the machine was taken off for unknown reason. Past Medical History Cardiac Medical History: Reports: Coronary Artery Disease, Hyperlipidema, Hypertension Pulmonary Medical History: Reports: Pneumonia, Sleep Apnea Neurological Medical History: Reports: Migraine Endocrine Medical History: Reports: Diabetes Mellitus Type 2 - no meds GI Medical History: Reports: Gastroesophageal Reflux Disease Musculoskeltal Medical History: Reports: Arthritis, Fibromyalgia Psychiatric Medical History: Reports: Depression, Post Traumatic Stress Disorder Past Surgical History Past Surgical History: Reports: Appendectomy, Cardiac Catheterization - 3, last one 3 years ago showing no blockages, Cholecystectomy, Hysterectomy, Orthopedic Surgery - RIGHT ANKLE SURGERY 01/2011, shoulder surgery, Vascular Surgery - port a cath R upper chest Denies: Pacemaker Social History Information Source: Patient Lives with: Spouse/Significant other Smoking Status: Never Smoker Frequency of Alcohol Use: None Hx Recreational Drug Use: No Drugs: None Hx Prescription Drug Abuse: No - Advance Directive Resuscitation Status: Full Code Family History Family History: Hypertension Parental Family History Reviewed: Yes Children Family History Reviewed: Yes Sibling(s) Family History Reviewed.: Yes Medication/Allergy Home Medications: Amlodipine Besylate [Norvasc 10 mg Tablet] 10 mg PO DAILY 02/12/17 Aripiprazole [Abilify 15 mg Tablet] 15 mg PO DAILY 02/12/17 Butalb/Acetaminophen/Caffeine [Mkgbjc-Fflyxdgc-Kmjz 50-325-40] 1 tab PO Q4HP PRN 02/12/17 Clonidine HCl [Catapres 0.3 mg Tablet] 0.3 mg PO Q8 02/12/17 Diazepam [Valium 5 mg Tablet] 5 mg PO Q12HP PRN 02/12/17 Divalproex Sodium [Depakote ER 500 mg Tab.sr] 500 mg PO QHS 02/12/17 Escitalopram Oxalate [Lexapro] 40 mg PO DAILY 02/12/17 Eszopiclone [Lunesta] 3 mg PO QHS 02/12/17 Fluticasone Propionate [Flonase Nasal [place] 50 Mcg/[place] 16 gm] 2 sprays NASL DAILY 02/12/17 Folic Acid [Folvite 1 mg Tablet] 1 mg PO DAILY 02/12/17 Gabapentin [Neurontin 300 mg Capsule] 300 mg PO Q12 02/12/17 Lisinopril [Zestril] 20 mg PO Q12 02/12/17 Methocarbamol [Robaxin 750 mg Tablet] 750 mg PO Q6HP PRN 02/12/17 Metoclopramide HCl [Reglan 10 mg Tablet] 10 mg PO ACHS 02/12/17 Oxycodone HCl 15 mg PO Q6HP PRN 02/12/17 Oxycodone HCl [Oxycontin Sr 40 mg Tablet] 40 mg PO Q12HP PRN 02/12/17 Promethazine HCl [Phenergan 25 mg Tablet] 25 mg PO Q6HP PRN 02/12/17 Rosuvastatin Calcium [Crestor] 20 mg PO QHS 02/12/17 Allergies/Adverse Reactions: codeine [Codeine] Allergy (Mild, Verified 02/08/17 14:55) Itching ketorolac tromethamine [From Toradol] Allergy (Unknown, Verified 02/08/17 14:55) nalbuphine HCl [From Nubain] Allergy (Unknown, Verified 02/08/17 14:55) ondansetron HCl [From Zofran] Allergy (Unknown, Verified 02/08/17 14:55) droperidol [Droperidol] Allergy (Verified 02/08/17 14:55) heart racing, doesn't like how it makes her feel Review of Systems Review of Systems: Please see history of present illness and past medical history as wall. Constitutional: No fever or chills reported. Head : No recent chronic headaches, recent head injury. Eyes: No recent eye pain, diplopia, redness, discharge, acute visual changes. Ears: No recent chronic ear pain, acute hearing loss, ear discharge. Oral cavity: No recent ulcerations, bleeding, oral cavity discomfort. Neck: No recent acute neck pain reported. Hematologic: No recent easy bruising or bleeding or hematologic malignancy reported. Lymphatic: No recent lymphatic malignancy, chronic lymphadenopathy reported yet Cardiovascular system review: See history of present illness. Respiratory system review: No recent chronic cough, hemoptysis, blood clots in the lungs reported. Mild Shortness of breath on exertion Gastrointestinal system review: Negative for any recent acute or chronic abdominal pain, hematemesis, melena, recent change in bowel habits. Genitourinary system review: No recent acute or chronic hematuria, flank pain, UTI etc. reported. Describes history of chronic kidney disease and focal sclerosing glomerulonephritis. Occasional hematuria. Skin system review: Negative for any recent abnormal bruising, no rash, no pruritus reported. Neurologic: No prior history of strokes, mini strokes, seizure disorder. Psychologic: No history of major psychosis or major depression reported. History of depression minor and fibromyalgia Musculoskeletal: Minor aches and pains reported. No acute joint swelling reported. History of chronic pain and fibromyalgia Endocrine: No recent polyuria, polydipsia, recent heat or cold intolerance. Physical Exam Vital Signs: Temp Pulse Resp BP Pulse Ox 98.0 F 119 H 16 177/81 H 100 02/13/17 14:13 02/13/17 14:13 02/13/17 14:13 02/13/17 14:13 02/13/17 14:13 Intake & Output 02/12/17 02/13/17 02/14/17 06:59 06:59 06:59 Intake Total 200 590 Output Total 0 Balance 200 590 Weight 111.8 kg Exam: GENERAL: well-nourished and in no acute distress. Alert and oriented x3 HEAD: Atraumatic, normocephalic. EYES: Pupils equal round and reactive to light, extraocular movements intact, sclera anicteric, conjunctiva are normal. ENT: TMs normal, nares patent, oropharynx clear without exudates. Moist mucous membranes. No oral ulcerations or bleeding gums noted NECK: supple without lymphadenopathy. Trachea is central. No cervical or axillary lymphadenopathy noted. Carotids are 2+, JVD WNL LUNGS: Respiration seems nonlabored, no significant accessory muscle action noted. Breath sounds clear to auscultation bilaterally and equal noted. No wheezes rales or rhonchi noted. No significant dullness noted on percussion. CHEST: Palpation of the chest wall shows significant left anterior chest wall tenderness. No other significant abnormalities noted. HEART: [place] [employer], No PSH, 1/6 NEELIMA aortic area, 1/6 buck systolic murmur mitral area, no rubs, no gallops. ABDOMEN: Soft, no significant tenderness appreciated, normoactive bowel sounds. No guarding, no rebound. No rigidity noted . No masses appreciated. EXTREMITIES: Pedal pulses are 1-2+, no calf tenderness noted. No clubbing or cyanosis.trace to 1+ pedal edema noted NEUROLOGICAL: Focused neurological exam showed no significant neurologic deficit. Normal speech, no focal weakness appreciated. PSYCH: Normal mood, normal affect. Judgment and insight within normal limits. SKIN: No significant ecchymosis, rash, ulcerations or signs of pruritus noted. MUSCULOSKELETAL EXAM: No significant joint swelling noted. Results Laboratory Results: 02/12/17 20:40 02/12/17 20:40 02/12/17 02/12/17 20:40 20:40 WBC 7.1 RBC 3.63 L Hgb 10.5 L Hct 31.1 L MCV 86 MCH 29.0 MCHC 33.9 RDW 13.9 Plt Count 189 Seg Neutrophils % 67.9 Lymphocytes % 21.2 Monocytes % 8.7 Eosinophils % 1.8 Basophils % 0.4 Absolute Neutrophils 4.8 Absolute Lymphocytes 1.5 Absolute Monocytes 0.6 Absolute Eosinophils 0.1 Absolute Basophils 0.0 Sodium 144.7 Potassium 3.9 Chloride 106 Carbon Dioxide 28 Anion Gap 11 BUN 26 H Creatinine 3.03 H Est GFR ( Amer) 20 L Est GFR (Non-Af Amer) 16 L Glucose 182 H Calcium 8.8 Phosphorus 4.3 Magnesium 2.0 02/12/17 02/13/17 02/13/17 20:40 03:55 11:18 Troponin I 0.031 0.026 0.014 EKG Comments: Sinus rhythm, no acute ST-T wave changes noted Impressions: Head CT 02/13/17 00:00 IMPRESSION: NORMAL BRAIN CT WITHOUT CONTRAST. EVIDENCE OF ACUTE STROKE: NO. Assessment & Plan - Diagnosis (1) Chest pain Qualifiers: Chest pain type: unspecified Qualified Code(s): R07.9 - Chest pain, unspecified Is this a current diagnosis for this admission?: Yes (2) Fibromyalgia Is this a current diagnosis for this admission?: Yes (3) CKD (chronic kidney disease) stage 4, GFR 15-29 ml/min Is this a current diagnosis for this admission?: Yes (4) Hypertensive emergency Is this a current diagnosis for this admission?: Yes (5) Migraine Qualifiers: Migraine type: unspecified Intractability: intractable Is this a current diagnosis for this admission?: Yes - Notes Notes: Chest pain: [place] to be atypical and most likely related to chest wall pain and musculoskeletal pain secondary to fibromyalgia or other musculoskeletal problem. So far cardiac enzymes has been unremarkable and EKG has been unremarkable. Patient does have significant chest wall tenderness. Patient was reassured. Patient can follow-up with me regarding this. Fibromyalgia: Discussed that fibromyalgia can be aggravated by both sleep apnea , insomnia. Treatment of sleep apnea often helps chronic pain syndrome. Chronic kidney disease: Patient being managed by Dr. Castorena. Hypertensive emergency: Patient was admitted with this diagnosis. Currently blood pressure reasonably well controlled. Discussed that untreated sleep apnea can cause severe hypertension and resistant hypertension. Migraines: We will leave management to architectural associate. Dyspnea on exertion: Patient advised in weight loss, regular walking program. - Time Time Spent: 30 to 50 Minutes - CODE STATUS was discussed, patient remains full code. Surrogate decision-maker spouse. Multiple medical problems were addressed. More than 50% of the time spent coordinating care, discussing management plans with involved caregivers. Management plans discussed with involved personnels. Medical decision making was of moderate to high complexity , patient's has multiple comorbidities. Medications reviewed and adjusted accordingly: Yes
[2017-02-13 15:24] VITALS: BP 107/57
[2017-02-13] MEDS ORDERED: CLONIDINE HCL 0.1 MG TABLET PO SCH (22:00)
== END 2017-02-13 16:09 | disposition home or self-care (01) ==
LOC: 3N 16:48 → UNDOADMIN 16:48 → INTOOBSV 17:45 → 3N 17:45
PROVIDERS: ADMIT Internal Medicine; ATTEND Internal Medicine
DX: I16.1 Hypertensive emergency (principal); G43.909 Migraine, unspecified, not intractable, without status migrainosus; E11.22 Type 2 diabetes mellitus with diabetic chronic kidney disease; I12.9 Hypertensive chronic kidney disease with stage 1 through stage 4 chronic kidney disease, or unspecified chronic kidney disease; N18.4 Chronic kidney disease, stage 4 (severe); M79.7 Fibromyalgia; R60.0 Localized edema; G89.29 Other chronic pain; R07.89 Other chest pain; F32.9 Major depressive disorder, single episode, unspecified; I25.10 Atherosclerotic heart disease of native coronary artery without angina pectoris; R06.09 Other forms of dyspnea; F41.9 Anxiety disorder, unspecified; Z79.899 Other long term (current) drug therapy; Z87.09 Personal history of other diseases of the respiratory system; Z90.49 Acquired absence of other specified parts of digestive tract; Z95.828 Presence of other vascular implants and grafts; Z82.49 Family history of ischemic heart disease and other diseases of the circulatory system
CPT/HCPCS: 36415 ×2; 83735; 84100; 85025; 80048; 84484 ×2; 70450; 93005; 93010; J3490 ×11; J1200; J1940; J0360; J2270; J1170; J2060; J3475 ×2; S0164; J0780; J2550 ×2

== ENCOUNTER → 2017-02-25 | Outpatient (CLI) | payer MEDICAID ==
[2017-02-25 14:13] LABS: APPEARANCE,URINE SLIGHTLY-CLOUDY; BILIRUBIN,URINE NEGATIVE (NEGATIVE); GLUCOSE, URINE NEGATIVE (NEGATIVE); KETONES,URINE NEGATIVE (NEGATIVE); LEUKOCYTE ESTERASE,URINE NEGATIVE (NEGATIVE); NITRITE,URINE NEGATIVE (NEGATIVE); PROTEIN,URINE >=500 mg/dL (NEGATIVE); URINE SPECIFIC GRAVITY 1.015; UROBILINOGEN,URINE NEGATIVE mg/dL (<2.0)
[2017-02-25 14:22] LABS: HEMATOCRIT 33.5 % (36.0-47.0); HEMOGLOBIN 11.5 g/dL (12.0-15.5); MEAN CORPUSCULAR HGB CONC 34.2 g/dL (32.0-36.0); MEAN CORPUSCULAR VOLUME 85 fl (80-97); RED BLOOD COUNT 3.96 10^6/uL (3.72-5.28); RED CELL DISTRIBUTION WIDTH 13.5 % (11.5-14.0); WHITE BLOOD COUNT 3.9 10^3/uL (4.0-10.5)
[2017-02-25 14:52] LABS: ALANINE AMINOTRANSFERASE 17 U/L (9-52); ALBUMIN 3.7 g/dL (3.5-5.0); ALKALINE PHOSPHATASE 175 U/L (38-126); ANION GAP 14 (5-19); ASPARTATE AMINO TRANSFERASE 17 U/L (14-36); BILIRUBIN,DIRECT 0.4 mg/dL (0.0-0.4); BILIRUBIN,TOTAL 0.4 mg/dL (0.2-1.3); BLOOD UREA NITROGEN 35 mg/dL (7-20); CALCIUM 9.2 mg/dL (8.4-10.2); CARBON DIOXIDE 24 mmol/L (22-30); CHLORIDE 109 mmol/L (98-107); CREATININE RESULT 3.56 mg/dL (0.52-1.25); GLUCOSE 100 mg/dL (75-110); POTASSIUM 4.7 mmol/L (3.6-5.0); TOTAL PROTEIN 7.4 g/dL (6.3-8.2)
== END ==
LOC: OD 13:08
PROVIDERS: ATTEND Internal Medicine Nephrology
DX: N18.4 Chronic kidney disease, stage 4 (severe) (principal); E11.9 Type 2 diabetes mellitus without complications; D64.9 Anemia, unspecified
CPT/HCPCS: 36415; 80053; 81001; 85027

== ENCOUNTER → 2017-03-04 | Outpatient (CLI) | payer MEDICAID ==
[2017-03-04 16:51] LABS: ABSOLUTE BASOPHILS # (AUTO) 0.1 10^3/uL (0.0-0.2); ABSOLUTE EOSINOPHILS # (AUTO) 0.4 10^3/uL (0.0-0.6); ABSOLUTE LYMPHOCYTES (AUTO) 2.1 10^3/uL (0.5-4.7); ABSOLUTE MONOCYTES (AUTO) 0.6 10^3/uL (0.1-1.4); ABSOLUTE NEUT (AUTO) 2.3 10^3/uL (1.7-8.2); BASOPHILS % (AUTO) 1.4 % (0-2); EOSINOPHILS % (AUTO) 6.4 % (0-6); HEMATOCRIT 34.6 % (36.0-47.0); HEMOGLOBIN 11.5 g/dL (12.0-15.5); HGB HCT DIFFERENCE -0.1; LYMPHOCYTES % (AUTO) 38.1 % (13-45); MEAN CORPUSCULAR HGB CONC 33.3 g/dL (32.0-36.0); MEAN CORPUSCULAR VOLUME 84 fl (80-97); MONOCYTES % (AUTO) 11.2 % (3-13); RED BLOOD COUNT 4.11 10^6/uL (3.72-5.28); RED CELL DISTRIBUTION WIDTH 13.8 % (11.5-14.0); SEGMENTED NEUTROPHILS % (AUTO) 42.9 % (42-78); WHITE BLOOD COUNT 5.4 10^3/uL (4.0-10.5)
[2017-03-04 17:03] LABS: APPEARANCE,URINE CLEAR; BILIRUBIN,URINE NEGATIVE (NEGATIVE); GLUCOSE, URINE NEGATIVE (NEGATIVE); KETONES,URINE NEGATIVE (NEGATIVE); LEUKOCYTE ESTERASE,URINE NEGATIVE (NEGATIVE); NITRITE,URINE NEGATIVE (NEGATIVE); PROTEIN,URINE >=500 mg/dL (NEGATIVE); URINE SPECIFIC GRAVITY 1.013; UROBILINOGEN,URINE NEGATIVE mg/dL (<2.0)
[2017-03-04 17:11] LABS: ALANINE AMINOTRANSFERASE 16 U/L (9-52); ALBUMIN 3.8 g/dL (3.5-5.0); ALKALINE PHOSPHATASE 170 U/L (38-126); ANION GAP 14 (5-19); ASPARTATE AMINO TRANSFERASE 18 U/L (14-36); BILIRUBIN,DIRECT 0.5 mg/dL (0.0-0.4); BILIRUBIN,TOTAL 0.5 mg/dL (0.2-1.3); BLOOD UREA NITROGEN 43 mg/dL (7-20); CALCIUM 9.1 mg/dL (8.4-10.2); CARBON DIOXIDE 26 mmol/L (22-30); CHLORIDE 103 mmol/L (98-107); CREATININE RESULT 3.42 mg/dL (0.52-1.25); GLUCOSE 125 mg/dL (75-110); PHOSPHORUS 5.1 mg/dL (2.5-4.5); POTASSIUM 4.3 mmol/L (3.6-5.0); SODIUM 142.7 mmol/L (137-145); TOTAL PROTEIN 7.1 g/dL (6.3-8.2)
[2017-03-04 17:27] LABS: URINE CREATININE 125.9 mg/dL (15-278)
== END ==
LOC: OD 16:03
PROVIDERS: ATTEND Internal Medicine Nephrology
DX: N18.4 Chronic kidney disease, stage 4 (severe) (principal); R80.9 Proteinuria, unspecified; I50.9 Heart failure, unspecified; R60.9 Edema, unspecified
CPT/HCPCS: 36415; 80053; 81001; 82570; 83970; 84100; 84156; 85025

== ENCOUNTER 2017-03-13 13:38 | Inpatient (IN) | payer MEDICAID ==
--- NOTE | 2017-03-13 14:02 | EKG REPORT ---
SEVERITY:- ABNORMAL ECG - SINUS RHYTHM PROBABLE LEFT ATRIAL ABNORMALITY PROBABLE LEFT VENTRICULAR HYPERTROPHY : Confirmed by: Abigail Mandel MD 13-Mar-2017 14:01:49
--- NOTE | 2017-03-13 14:13 | ER Document Report ---
ED Medical Screen (RME) - General Chief Complaint: Chest Pain > 30 Stated Complaint: CHEST PAIN Time Seen by Provider: 03/13/17 14:10 TRAVEL OUTSIDE OF THE [place] IN LAST 30 DAYS: No - HPI Notes: 03/13/17 14:12 Chest pain since this morning. History of renal failure. - Related Data Allergies/Adverse Reactions: codeine [Codeine] Allergy (Mild, Verified 03/13/17 13:50) Itching ketorolac tromethamine [From Toradol] Allergy (Unknown, Verified 03/13/17 13:50) nalbuphine HCl [From Nubain] Allergy (Unknown, Verified 03/13/17 13:50) ondansetron HCl [From Zofran] Allergy (Unknown, Verified 03/13/17 13:50) droperidol [Droperidol] Allergy (Verified 03/13/17 13:50) heart racing, doesn't like how it makes her feel Past Medical History - Past Medical History Cardiac Medical History: Reports: Hx Coronary Artery Disease, Hx Hypercholesterolemia, Hx Hypertension Pulmonary Medical History: Reports: Hx Pneumonia, Hx Sleep Apnea Neurological Medical History: Reports: Hx Migraine Endocrine Medical History: Reports: Hx Diabetes Mellitus Type 2 - no meds Renal/ Medical History: Reports: Hx Renal Insufficiency - stage 3 according to patient. Denies: Hx Peritoneal Dialysis GI Medical History: Reports: Hx Gastroesophageal Reflux Disease, Hx Irritable Bowel Musculoskeltal Medical History: Reports Hx Arthritis, Reports Hx Fibromyalgia, Reports Hx Musculoskeletal Deformity, Reports Hx Musculoskeletal Trauma Psychiatric Medical History: Reports: Hx Depression, Hx Post Traumatic Stress Disorder Past Surgical History: Reports: Hx Appendectomy, Hx Cardiac Catheterization - 3 , last one 3 years ago showing no blockages, Hx Cholecystectomy, Hx Hysterectomy , Hx Orthopedic Surgery - RIGHT ANKLE SURGERY 01/2011, shoulder surgery, Hx Thyroid Surgery, Hx Vascular Surgery - port a cath R upper chest. Denies: Hx Pacemaker - Immunizations Hx Diphtheria, Pertussis, Tetanus Vaccination: No History of Influenza Vaccine for 01/2017 - 06/2017 Season: No Review of Systems - Review of Systems Cardiovascular: Chest pain Physical Exam - Vital signs Vitals: Temp Pulse Resp BP Pulse Ox 98.5 F 101 H 16 154/92 H 100 03/13/17 13:48 03/13/17 13:48 03/13/17 13:48 03/13/17 13:48 03/13/17 13:48 - Respiratory Respiratory status: No respiratory distress Chest status: Nontender Breath sounds: Normal Chest palpation: Normal Course - Vital Signs Vital signs: Temp Pulse Resp BP Pulse Ox 98.5 F 101 H 16 154/92 H 100 03/13/17 13:48 03/13/17 13:48 03/13/17 13:48 03/13/17 13:48 03/13/17 13:48
--- NOTE | 2017-03-13 14:23 | ER Document Report ---
ED Cardiac - General Chief Complaint: Chest Pain > 30 Stated Complaint: CHEST PAIN Time Seen by Provider: 03/13/17 14:10 Mode of Arrival: Ambulatory Information source: Patient TRAVEL OUTSIDE OF THE [place] IN LAST 30 DAYS: No - HPI Patient complains to provider of: Chest pain Use of: denies: Alcohol, Amphetamines, Bath salts, Caffeine, Cocaine, Decongestants Was the onset of pain: Sudden Is the pain a: Chronic problem Chest pain location: Substernal Quality of pain: Pressure Chest pain radiation location: Left arm Severity now: Mild Severity at worst: Moderate Chest pain precipitating factors: At Rest - LYING IN BED Cardiac risk factors: Diabetes, Hypertension, + Family history, Dyslipidemia. denies: Hx CO Positive cardiac history: No Associated symptoms: Diaphoresis, Nausea/vomiting, Shortness of breath Exacerbated by: Deep breaths Relieved by: Nothing. denies: NTG - TOOK x 2 @HOME Similar symptoms previously: Yes Recently seen / treated by doctor: Yes - 5 DAYS AGO, CHEST PAIN EVAL. @ [facility] - Related Data Allergies/Adverse Reactions: codeine [Codeine] Allergy (Mild, Verified 03/13/17 13:50) Itching ketorolac tromethamine [From Toradol] Allergy (Unknown, Verified 03/13/17 13:50) nalbuphine HCl [From Nubain] Allergy (Unknown, Verified 03/13/17 13:50) ondansetron HCl [From Zofran] Allergy (Unknown, Verified 03/13/17 13:50) droperidol [Droperidol] Allergy (Verified 03/13/17 13:50) heart racing, doesn't like how it makes her feel Past Medical History - General Information source: Patient - Social History Smoking Status: Never Smoker Cigarette use (# per day): No Chew tobacco use (# tins/day): No Frequency of alcohol use: None Drug Abuse: None Lives with: Spouse/Significant other Family History: Hypertension Patient has suicidal ideation: No Patient has homicidal ideation: No - Past Medical History Cardiac Medical History: Reports: Hx Coronary Artery Disease, Hx Hypercholesterolemia, Hx Hypertension Other: HAS HAD CATH 4 YRS AGO, STRESS TEST LAST MONTH, BOTH NEG. Pulmonary Medical History: Reports: Hx Pneumonia, Hx Sleep Apnea Neurological Medical History: Reports: Hx Migraine Endocrine Medical History: Reports: Hx Diabetes Mellitus Type 2 - no meds Renal/ Medical History: Reports: Hx Renal Insufficiency - stage 3 according to patient. Denies: Hx Peritoneal Dialysis GI Medical History: Reports: Hx Gastroesophageal Reflux Disease, Hx Irritable Bowel Musculoskeltal Medical History: Reports Hx Arthritis, Reports Hx Fibromyalgia, Reports Hx Musculoskeletal Deformity, Reports Hx Musculoskeletal Trauma Psychiatric Medical History: Reports: Hx Depression, Hx Post Traumatic Stress Disorder Past Surgical History: Reports: Hx Appendectomy, Hx Cardiac Catheterization - 3 , last one 3 years ago showing no blockages, Hx Cholecystectomy, Hx Hysterectomy , Hx Orthopedic Surgery - RIGHT ANKLE SURGERY 01/2011, shoulder surgery, Hx Thyroid Surgery, Hx Vascular Surgery - port a cath R upper chest. Denies: Hx Pacemaker - Immunizations Hx Diphtheria, Pertussis, Tetanus Vaccination: No Hx Pneumococcal Vaccination: 04/22/11 Review of Systems - Review of Systems Constitutional: Diaphoresis EENT: No symptoms reported Cardiovascular: See HPI, Chest pain Respiratory: See HPI, Short of breath Gastrointestinal: See HPI Genitourinary: No symptoms reported Female Genitourinary: No symptoms reported Musculoskeletal: No symptoms reported Skin: No symptoms reported Neurological/Psychological: Headaches Physical Exam - Vital signs Vitals: Temp Pulse Resp BP Pulse Ox 98.5 F 101 H 16 154/92 H 100 03/13/17 13:48 03/13/17 13:48 03/13/17 13:48 03/13/17 13:48 03/13/17 13:48 Interpretation: Hypertensive, Tachycardic - General General appearance: Appears well, Alert In distress: None - HEENT Head: Normocephalic Eyes: Normal Conjunctiva: Normal Ears: Normal Nasal: Normal Mouth/Lips: Normal Mucous membranes: Normal Pharynx: Normal Neck: Normal - Respiratory Respiratory status: No respiratory distress Breath sounds: Normal - Cardiovascular Rhythm: Regular Heart sounds: Normal auscultation Murmur: No - Abdominal Inspection: Obese - Back Back: Normal - Extremities General upper extremity: Normal inspection General lower extremity: Edema - 1+, BILAT.. No: Normal inspection Shoulder: No: Normal - RECENT TOTAL SHOULDER REPLACEMENT - Neurological Neuro grossly intact: Yes Cognition: Normal Orientation: AAOx4 - Psychological Associated symptoms: Normal affect, Normal mood - Skin Skin Temperature: Warm Skin Moisture: Dry Skin Color: Normal Skin Turgor: Elastic Course - Vital Signs Vital signs: Temp Pulse Resp BP Pulse Ox 98.5 F 101 H 16 154/92 H 100 03/13/17 13:48 03/13/17 13:48 03/13/17 13:48 03/13/17 13:48 03/13/17 13:48 - Laboratory Result Diagrams: 03/13/17 14:51 03/13/17 14:51 Laboratory results interpreted by me: 03/13/17 03/13/17 14:51 14:51 Hgb 11.3 L Hct 33.3 L BUN 38 H Creatinine 3.05 H Est GFR ( Amer) 20 L Est GFR (Non-Af Amer) 16 L Glucose 163 H Alkaline Phosphatase 157 H - Diagnostic Test Radiology reviewed: Image reviewed, Reports reviewed - EKG Interpretation by Me EKG shows normal: Sinus rhythm, [place], Intervals, ST-T Waves. abnormal: QRS Complexes Rate: Normal Rhythm: NSR Voltage: Consistant with LVH P Waves: LAE When compared to previous EKG there are: No significant change - Consults DR. LOW Time consulted: 16:28 Consulted provider: will come to ER Discharge - Discharge Clinical Impression: Chest pain with moderate risk for cardiac etiology, Fibromyalgia Renal failure, chronic Qualifiers: Chronic kidney disease stage: stage 3 (moderate) Qualified Code(s): N18.3 - Chronic kidney disease, stage 3 (moderate) Condition: Good Disposition: ADMITTED OBSERVATION Admitting Provider: Hospitalist Unit Admitted: Telemetry
[2017-03-13 15:20] LABS: ABSOLUTE EOSINOPHILS # (AUTO) 0.1 10^3/uL (0.0-0.6); ABSOLUTE LYMPHOCYTES (AUTO) 1.4 10^3/uL (0.5-4.7); ABSOLUTE MONOCYTES (AUTO) 0.5 10^3/uL (0.1-1.4); ABSOLUTE NEUT (AUTO) 4.5 10^3/uL (1.7-8.2); BASOPHILS % (AUTO) 0.7 % (0-2); HEMATOCRIT 33.3 % (36.0-47.0); HEMOGLOBIN 11.3 g/dL (12.0-15.5); HGB HCT DIFFERENCE 0.6; LYMPHOCYTES % (AUTO) 21.4 % (13-45); MEAN CORPUSCULAR HEMOGLOBIN 28.6 pg (27.0-33.4); MEAN CORPUSCULAR HGB CONC 33.8 g/dL (32.0-36.0); MEAN CORPUSCULAR VOLUME 85 fl (80-97); MONOCYTES % (AUTO) 7.2 % (3-13); RED BLOOD COUNT 3.94 10^6/uL (3.72-5.28); RED CELL DISTRIBUTION WIDTH 13.6 % (11.5-14.0); SEGMENTED NEUTROPHILS % (AUTO) 68.7 % (42-78); WHITE BLOOD COUNT 6.6 10^3/uL (4.0-10.5)
[2017-03-13] MEDS ORDERED: HYDROMORPHONE HCL INJ/PF 2 MG/ML AMPULE IV ONE (15:24)
[2017-03-13] MEDS ORDERED: NITROGLYCERIN 2% OINTMENT 1 GM PACKET TP ONE (15:24)
[2017-03-13 15:39] LABS: ALANINE AMINOTRANSFERASE 26 U/L (9-52); ALBUMIN 3.5 g/dL (3.5-5.0); ALKALINE PHOSPHATASE 157 U/L (38-126); ANION GAP 11 (5-19); ASPARTATE AMINO TRANSFERASE 18 U/L (14-36); BILIRUBIN,DIRECT 0.4 mg/dL (0.0-0.4); BILIRUBIN,TOTAL 0.4 mg/dL (0.2-1.3); BLOOD UREA NITROGEN 38 mg/dL (7-20); CALCIUM 8.7 mg/dL (8.4-10.2); CARBON DIOXIDE 30 mmol/L (22-30); CHLORIDE 103 mmol/L (98-107); CREATINE KINASE 53 U/L (30-135); CREATININE RESULT 3.05 mg/dL (0.52-1.25); GLUCOSE 163 mg/dL (75-110); POTASSIUM 4.7 mmol/L (3.6-5.0); SODIUM 143.6 mmol/L (137-145); TOTAL PROTEIN 6.7 g/dL (6.3-8.2)
[2017-03-13 15:49] LABS: CREATINE KINASE MB 0.56 ng/mL (<4.55); TROPONIN I 0.013 ng/mL
[2017-03-13] MEDS ORDERED: ACETAMINOPHEN 325 MG TABLET PO PRN (16:50)
[2017-03-13] MEDS ORDERED: ONDANSETRON HCL INJ/PF 4 MG/2 ML SDV IV PRN (16:50)
[2017-03-13] MEDS: OXYCODONE-ACETAMINOPHEN 5-325 MG TABLET PO PRN (18:10)
--- NOTE | 2017-03-13 18:52 | RADIOLOGY REPORT (SQ) ---
EXAM DESCRIPTION: CHEST PA/LAT COMPLETED DATE/TIME: 03/13/2017 5:00 pm REASON FOR STUDY: cp COMPARISON: 02/08/2017 EXAM PARAMETERS: NUMBER OF VIEWS: two views TECHNIQUE: Digital Frontal and Lateral radiographic views of the chest acquired. RADIATION DOSE: NA LIMITATIONS: none FINDINGS: LUNGS AND PLEURA: No opacities, masses or pneumothorax. No pleural effusion. MEDIASTINUM AND HILAR STRUCTURES: No masses or contour abnormalities. HEART AND VASCULAR STRUCTURES: Heart normal size. No evidence for failure. BONES: No acute findings. HARDWARE: Right anterior chest wall Port-A-Cath terminates in the region of the cavoatrial junction. Cholecystectomy clips. OTHER: No other significant finding. IMPRESSION: Stable radiographic appearance of the chest. No evidence of acute cardiopulmonary abnor mality. TECHNICAL DOCUMENTATION: JOB ID: [id number] [employer]- All Rights Reserved
--- NOTE | 2017-03-13 20:35 | RADIOLOGY REPORT (SQ) ---
EXAM DESCRIPTION: ABDOMEN 2 VIEWS COMPLETED DATE/TIME: 03/13/2017 8:17 pm REASON FOR STUDY: pain COMPARISON: None. NUMBER OF VIEWS: Two views. TECHNIQUE: Supine and erect/decubitus radiographic images of the abdomen acquired. LIMITATIONS: None. FINDINGS: FREE AIR: None. No abnormal gas collections. LUNG BASES: Clear. BOWEL GAS PATTERN: Copious colonic gas and stool in a nonspecific, nonobstructed pattern. No dilated loops or air fluid levels. CALCIFICATIONS: No suspicious calcifications. SOFT TISSUES: No gross mass or suggestion of organomegaly. HARDWARE: None in the abdomen. BONES: No acute fracture. No worrisome bone lesions. OTHER: No other significant finding. IMPRESSION: Nonspecific, nonobstructed bowel gas pattern noting copious colonic gas and stool. TECHNICAL DOCUMENTATION: JOB ID: [id number] [employer]- All Rights Reserved
[2017-03-13] MEDS ORDERED: ONDANSETRON HCL INJ/PF 4 MG/2 ML SDV IV ONE (21:19)
[2017-03-13] MEDS ORDERED: LACTULOSE SYRUP 20 GM/30 ML UDCUP PR ONE (21:19)
[2017-03-13] MEDS ORDERED: OXYCODONE HCL SR 40 MG TABLET PO SCH (22:00)
[2017-03-13] MEDS ORDERED: PROMETHAZINE HCL 25 MG TABLET PO ONE (22:15)
[2017-03-13] MEDS: CLONIDINE HCL 0.2 MG TABLET PO SCH (22:20)
[2017-03-13] MEDS: DOCUSATE SODIUM 100 MG CAPSULE PO SCH (22:20)
[2017-03-13] MEDS: LISINOPRIL 10 MG TABLET PO SCH (22:21)
[2017-03-13] MEDS: HYDROMORPHONE HCL INJ/PF 2 MG/ML AMPULE IV PRN (22:21)
[2017-03-13] MEDS: GABAPENTIN 300 MG CAPSULE PO SCH (22:21)
[2017-03-13] MEDS: LANSOPRAZOLE 30 MG TAB.RAP.DR PO SCH (22:21)
[2017-03-13] MEDS: ATORVASTATIN CALCIUM 20 MG TABLET PO SCH (22:21)
[2017-03-13] MEDS: ARIPIPRAZOLE 5 MG TABLET PO SCH (23:08)
[2017-03-13] MEDS: ZOLPIDEM TARTRATE 5 MG TABLET PO SCH (23:09)
[2017-03-14] MEDS ORDERED: LORAZEPAM INJ 2 MG/1 ML VIAL IV ONE (00:15)
[2017-03-14] MEDS ORDERED: LACTULOSE SYRUP 20 GM/30 ML UDCUP PO ONE (00:41)
[2017-03-14 03:46] LABS: ABSOLUTE LYMPHOCYTES (AUTO) 1.3 10^3/uL (0.5-4.7); ABSOLUTE MONOCYTES (AUTO) 0.7 10^3/uL (0.1-1.4); BASOPHILS % (AUTO) 0.3 % (0-2); EOSINOPHILS % (AUTO) 0.4 % (0-6); HEMATOCRIT 34.6 % (36.0-47.0); HEMOGLOBIN 11.6 g/dL (12.0-15.5); HGB HCT DIFFERENCE 0.2; LYMPHOCYTES % (AUTO) 14.5 % (13-45); MEAN CORPUSCULAR HEMOGLOBIN 28.2 pg (27.0-33.4); MEAN CORPUSCULAR HGB CONC 33.5 g/dL (32.0-36.0); MEAN CORPUSCULAR VOLUME 84 fl (80-97); MONOCYTES % (AUTO) 7.7 % (3-13); RED CELL DISTRIBUTION WIDTH 13.7 % (11.5-14.0); SEGMENTED NEUTROPHILS % (AUTO) 77.1 % (42-78)
[2017-03-14] MEDS: HYDROMORPHONE HCL INJ/PF 2 MG/ML AMPULE IV PRN (04:00)
[2017-03-14 04:17] LABS: ALANINE AMINOTRANSFERASE 18 U/L (9-52); ALBUMIN 3.7 g/dL (3.5-5.0); ALKALINE PHOSPHATASE 188 U/L (38-126); ANION GAP 13 (5-19); ASPARTATE AMINO TRANSFERASE 16 U/L (14-36); BILIRUBIN,DIRECT 0.3 mg/dL (0.0-0.4); BILIRUBIN,TOTAL 0.3 mg/dL (0.2-1.3); BLOOD UREA NITROGEN 33 mg/dL (7-20); CALCIUM 8.8 mg/dL (8.4-10.2); CARBON DIOXIDE 32 mmol/L (22-30); CHLORIDE 101 mmol/L (98-107); CHOLESTEROL 277.47 mg/dL (0-200); CREATINE KINASE 54 U/L (30-135); CREATININE RESULT 3.12 mg/dL (0.52-1.25); Direct HDL 107 mg/dL (>40); GLUCOSE 123 mg/dL (75-110); POTASSIUM 4.4 mmol/L (3.6-5.0); SODIUM 145.5 mmol/L (137-145); TRIGLYCERIDES 129 mg/dL (<150)
[2017-03-14 04:28] LABS: CREATINE KINASE MB 0.49 ng/mL (<4.55)
[2017-03-14 04:30] LABS: DIRECT LDL 105 mg/dL (<100)
[2017-03-14 04:33] LABS: TROPONIN I < 0.012 ng/mL
[2017-03-14] MEDS ORDERED: HYDRALAZINE HCL INJ/PF 20 MG/1 ML SDV IV PRN (05:01)
[2017-03-14] MEDS: CLONIDINE HCL 0.2 MG TABLET PO SCH ×3 (05:16→21:28)
[2017-03-14] MEDS: LANSOPRAZOLE 30 MG TAB.RAP.DR PO SCH ×2 (05:16→16:49)
[2017-03-14] MEDS: ENOXAPARIN SODIUM INJ 30 MG/0.3 ML DISP.SYRIN SUBCUT SCH (09:32)
[2017-03-14] MEDS: DOCUSATE SODIUM 100 MG CAPSULE PO SCH ×2 (09:32→17:57)
[2017-03-14] MEDS: LISINOPRIL 10 MG TABLET PO SCH ×2 (09:33→17:57)
[2017-03-14] MEDS: GABAPENTIN 300 MG CAPSULE PO SCH ×2 (09:34→17:57)
[2017-03-14] MEDS: AMLODIPINE BESYLATE 10 MG TABLET PO SCH (09:34)
[2017-03-14] MEDS: ASPIRIN 325 MG TABLET PO SCH (09:34)
[2017-03-14] MEDS: ESCITALOPRAM OXALATE 10 MG TABLET PO SCH (09:35)
[2017-03-14] MEDS: FOLIC ACID 1 MG TABLET PO SCH (09:35)
[2017-03-14] MEDS: METOPROLOL SUCCINATE 50 MG TAB.SR.24H PO SCH (09:35)
[2017-03-14] MEDS: FLUTICASONE NASAL SPRAY 50 MCG/SPRY 120 SPRAY/16 GM NASL SCH (09:36)
[2017-03-14] MEDS ORDERED: ENOXAPARIN SODIUM INJ 40 MG/0.4 ML DISP.SYRIN SUBCUT SCH (10:00)
[2017-03-14] MEDS: NITROGLYCERIN 10 MG (0.4 MG/HR) PATCH.TD24 TD SCH (10:45)
[2017-03-14] MEDS ORDERED: ACETAMINOPHEN 325 MG TABLET PO PRN (10:50)
[2017-03-14] MEDS ORDERED: PROMETHAZINE HCL INJ 25 MG/1 ML VIAL IV ONE (11:30)
[2017-03-14] MEDS ORDERED: DIPHENHYDRAMINE HCL 50 MG CAPSULE PO ONE (11:30)
[2017-03-14] MEDS: DIVALPROEX SODIUM 500 MG TAB.SR.24H PO SCH (11:36)
[2017-03-14] MEDS: NORMAL SALINE 1000 ML 1,000 ML IV PRN ×2 (11:43→19:32)
[2017-03-14 12:23] LABS: CREATINE KINASE MB 0.62 ng/mL (<4.55); TROPONIN I 0.016 ng/mL
[2017-03-14] MEDS: DIAZEPAM 5 MG TABLET PO PRN (13:15)
[2017-03-14] MEDS: LACTULOSE SYRUP 20 GM/30 ML UDCUP PO SCH ×2 (13:16→17:57)
--- NOTE | 2017-03-14 13:48 | PDOC PROGRESS REPORT ---
Subjective Progress Note for:: 03/14/17 Subjective:: f/u chest pain, constipation, chronic DUKES admitted for evaluation of chest pressure and initial ischemic evaluation is negative so far. she is chronic narcotic user for pain and is found obstipated on exam and imaging and somewhat resistant to taking the meds needed to free her up choosing instead to leverage her pain needs against treatment for her bowels. she reports persistent DUKES that is global and "like my usual migraine for which they give me IV dilaudid and IV benadryl in the ER". she reports no bowel movement, can't remember her last and has generalized abdominal pain but no n/v. ROS: all systems reviewed, see above, remaining systems negative Physical Exam Vital Signs: Temp Pulse Resp BP Pulse Ox 98.5 F 86 16 161/94 H 95 03/14/17 12:33 03/14/17 12:33 03/14/17 12:33 03/14/17 12:33 03/14/17 12:33 Intake & Output 03/13/17 03/14/17 03/15/17 06:59 06:59 06:59 Intake Total 72 Balance 72 Weight 108.2 kg General appearance: PRESENT: morbidly obese, well-developed Head exam: PRESENT: atraumatic Eye exam: ABSENT: conjunctival injection, scleral icterus Mouth exam: PRESENT: moist, neck supple Neck exam: PRESENT: full ROM. ABSENT: carotid bruit, JVD, lymphadenopathy, tenderness, tracheal deviation Respiratory exam: PRESENT: clear to auscultation salazar, unlabored Cardiovascular exam: PRESENT: RRR. ABSENT: systolic murmur, tachycardia Pulses: PRESENT: normal carotid pulses, normal radial pulses Vascular exam: PRESENT: normal capillary refill GI/Abdominal exam: PRESENT: hypoactive bowel sounds, soft, tenderness - diffuse mild tender to palpation Extremities exam: ABSENT: calf tenderness, pedal edema Musculoskeletal exam: PRESENT: ambulatory, full ROM Neurological exam: PRESENT: alert, awake, oriented to person, oriented to place , oriented to time, oriented to situation, reflexes normal. ABSENT: motor sensory deficit, aphasic Psychiatric exam: PRESENT: appropriate affect, normal mood. ABSENT: agitated, anxious Skin exam: PRESENT: dry, warm Results Laboratory Results: 03/14/17 03:34 03/14/17 03:34 03/14/17 03/14/17 03:34 03:34 WBC 9.0 RBC 4.10 Hgb 11.6 L Hct 34.6 L MCV 84 MCH 28.2 MCHC 33.5 RDW 13.7 Plt Count 176 Seg Neutrophils % 77.1 Lymphocytes % 14.5 Monocytes % 7.7 Eosinophils % 0.4 Basophils % 0.3 Absolute Neutrophils 7.0 Absolute Lymphocytes 1.3 Absolute Monocytes 0.7 Absolute Eosinophils 0.0 Absolute Basophils 0.0 Sodium 145.5 H Potassium 4.4 Chloride 101 Carbon Dioxide 32 H Anion Gap 13 BUN 33 H Creatinine 3.12 H Est GFR ( Amer) 19 L Est GFR (Non-Af Amer) 16 L Glucose 123 H Calcium 8.8 Total Bilirubin 0.3 AST 16 ALT 18 Alkaline Phosphatase 188 H Total Protein 7.0 Albumin 3.7 Triglycerides 129 Cholesterol 277.47 H LDL Cholesterol Direct 105 H VLDL Cholesterol 26.0 HDL Cholesterol 107 03/13/17 03/13/17 03/13/17 21:30 21:30 21:30 Creatine Kinase 54 CK-MB (CK-2) 0.65 Troponin I < 0.012 03/14/17 03/14/17 03/14/17 03:34 03:34 11:31 Creatine Kinase 54 59 CK-MB (CK-2) 0.49 Troponin I < 0.012 03/14/17 11:31 Creatine Kinase CK-MB (CK-2) 0.62 Troponin I 0.016 EKG Comments: no acute ischemic changes, borderline early repol abnl on anterior leads; looks the same as one done in 01/2017 Impressions: Chest X-Ray 03/13/17 14:12 IMPRESSION: Stable radiographic appearance of the chest. No evidence of acute cardiopulmonary abnormality. Abdomen X-Ray 03/13/17 19:47 IMPRESSION: Nonspecific, nonobstructed bowel gas pattern noting copious colonic gas and stool. Status: Image reviewed by me - agree with rads Assessment & Plan - Diagnosis (1) Acute on chronic kidney failure Qualifiers: Acute renal failure type: unspecified Chronic kidney disease stage: stage 4 (severe) Qualified Code(s): N17.9 - Acute kidney failure, unspecified; N18.4 - Chronic kidney disease, stage 4 (severe); N18.4 - Chronic kidney disease , stage 4 (severe); N18.4 - Chronic kidney disease, stage 4 (severe); N18.4 - Chronic kidney disease, stage 4 (severe) Is this a current diagnosis for this admission?: Yes Plan: will add IVFs and ck again in am. this may account for any irregularity in troponins as the enzyme may fail to clear in timely manner. (2) Constipation Qualifiers: Constipation type: unspecified constipation type Qualified Code(s): K59.00 - Constipation, unspecified Is this a current diagnosis for this admission?: Yes Plan: likely 2/2 chronic narcotic use; will add bowel regimen as she will allow and I think this accounts for the vast majority of her symptoms. add amitiza, we do have opoid antagonist on formulary other than narcan and I don't want her to withdrawal. (3) Chest pain with moderate risk for cardiac etiology Is this a current diagnosis for this admission?: Yes Plan: probably related to abdominal issues, will ck another troponin and ecg in morning (4) Fibromyalgia Is this a current diagnosis for this admission?: Yes (5) Migraine Qualifiers: Migraine type: unspecified Intractability: intractable Is this a current diagnosis for this admission?: Yes Plan: can't use NSAIDS due to renal disease; add benadryl, tylenol and phenergan and judicious use of further narcotics due to risk of worsening her bowel situation - Time Time Spent with patient: 35 or more minutes Medications reviewed and adjusted accordingly: Yes
[2017-03-14] MEDS ORDERED: PROCHLORPERAZINE EDISYLATE INJ 10 MG/2 ML VIAL ONE (17:36)
[2017-03-14] MEDS ORDERED: PROCHLORPERAZINE EDISYLATE INJ 10 MG/2 ML VIAL IM ONE (18:00)
[2017-03-14] MEDS ORDERED: DIPHENHYDRAMINE HCL 50 MG/ML VIAL IV ONE (18:00)
[2017-03-14] MEDS: LUBIPROSTONE 24 MCG CAPSULE PO SCH (21:27)
[2017-03-14] MEDS: ARIPIPRAZOLE 5 MG TABLET PO SCH (21:28)
[2017-03-14] MEDS: ATORVASTATIN CALCIUM 20 MG TABLET PO SCH (21:29)
[2017-03-14] MEDS: OXYCODONE HCL SR 40 MG TABLET PO SCH (21:29)
[2017-03-15] MEDS: NORMAL SALINE 1000 ML 1,000 ML IV PRN (02:48)
[2017-03-15] MEDS: CLONIDINE HCL 0.2 MG TABLET PO SCH ×3 (05:58→22:34)
[2017-03-15] MEDS: LANSOPRAZOLE 30 MG TAB.RAP.DR PO SCH ×2 (06:00→17:04)
--- NOTE | 2017-03-15 06:00 | EKG REPORT ---
SEVERITY:- ABNORMAL ECG - SINUS RHYTHM LEFT VENTRICULAR HYPERTROPHY ANTERIOR ST ELEVATION, PROBABLY DUE TO LVH : Confirmed by: Abigail Mandel MD 15-Mar-2017 05:59:49
[2017-03-15 07:41] LABS: ALANINE AMINOTRANSFERASE 26 U/L (9-52); ALBUMIN 3.2 g/dL (3.5-5.0); ALKALINE PHOSPHATASE 162 U/L (38-126); ANION GAP 9 (5-19); ASPARTATE AMINO TRANSFERASE 14 U/L (14-36); BILIRUBIN,DIRECT 0.2 mg/dL (0.0-0.4); BILIRUBIN,TOTAL 0.3 mg/dL (0.2-1.3); BLOOD UREA NITROGEN 28 mg/dL (7-20); CALCIUM 8.4 mg/dL (8.4-10.2); CARBON DIOXIDE 29 mmol/L (22-30); CHLORIDE 105 mmol/L (98-107); GLUCOSE 114 mg/dL (75-110); POTASSIUM 4.6 mmol/L (3.6-5.0); SODIUM 143.4 mmol/L (137-145); TOTAL PROTEIN 6.3 g/dL (6.3-8.2)
[2017-03-15] MEDS ORDERED: BISACODYL 10 MG SUPP.RECT PR ONE (09:30)
[2017-03-15] MEDS: METOPROLOL SUCCINATE 50 MG TAB.SR.24H PO SCH (09:58)
[2017-03-15] MEDS: ENOXAPARIN SODIUM INJ 30 MG/0.3 ML DISP.SYRIN SUBCUT SCH (09:58)
[2017-03-15] MEDS: ESCITALOPRAM OXALATE 10 MG TABLET PO SCH (09:59)
[2017-03-15] MEDS: GABAPENTIN 300 MG CAPSULE PO SCH ×2 (09:59→17:04)
[2017-03-15] MEDS: LISINOPRIL 10 MG TABLET PO SCH ×2 (09:59→17:04)
[2017-03-15] MEDS: AMLODIPINE BESYLATE 10 MG TABLET PO SCH (10:00)
[2017-03-15] MEDS: ASPIRIN 325 MG TABLET PO SCH (10:00)
[2017-03-15] MEDS: DOCUSATE SODIUM 100 MG CAPSULE PO SCH ×2 (10:01→17:04)
[2017-03-15] MEDS: OXYCODONE HCL SR 40 MG TABLET PO SCH ×2 (10:01→22:33)
[2017-03-15] MEDS: FOLIC ACID 1 MG TABLET PO SCH (10:01)
[2017-03-15] MEDS: NITROGLYCERIN 10 MG (0.4 MG/HR) PATCH.TD24 TD SCH (10:02)
[2017-03-15] MEDS: LACTULOSE SYRUP 20 GM/30 ML UDCUP PO SCH ×3 (10:02→17:05)
[2017-03-15] MEDS: LUBIPROSTONE 24 MCG CAPSULE PO SCH ×2 (10:08→22:34)
[2017-03-15] MEDS: DIVALPROEX SODIUM 500 MG TAB.SR.24H PO SCH (10:08)
[2017-03-15] MEDS: FLUTICASONE NASAL SPRAY 50 MCG/SPRY 120 SPRAY/16 GM NASL SCH (10:08)
--- NOTE | 2017-03-15 11:22 | HISTORY AND PHYSICAL E ---
History and Physical NAME: DAREN ROSS : 1965 AGE: 51Y ADMITTED: 03/13/2017 ROOM: 531 CHIEF COMPLAINT: Chest pain. HISTORY OF PRESENT ILLNESS: The patient is a 51-year-old female who has chronic kidney disease stage IV, hypertension, diabetes, controlled fibromyalgia, depression, chronic pain syndrome. She follows up in our office for nephrology. The patient came to the emergency room with chest pain radiating to her shoulder and she started on nitroglycerine paste. The patient has chronic pain syndrome. She is on multiple medications for pain. She is taking oxycodone SR 40 twice a day and 15 mg every 6 hours p.r.n. She was given Dilaudid in the emergency room. It continued without any change. REVIEW OF SYSTEMS: Twelve systems were reviewed and are negative except for the history of present illness. 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 PAST SURGICAL HISTORY: Appendectomy, cholecystectomy, hysterectomy, orthopedic surgery in the right ankle area in 2010. SOCIAL HISTORY: She does not smoke or drink. She is . FAMILY HISTORY: Mother had coronary artery disease. HOME MEDICATIONS: 1. Amlodipine 10 mg daily. 2. Abilify 15 mg daily. 3. Clonidine 0.3 mg t.i.d. 4. Diazepam 5 mg q.12 hours 6. Lexapro 40 mg daily. 7. Lunesta 3 mg daily. 8. Flonase 50 mcg spray. 9. Folic acid 1 mg daily. 10. Gabapentin 300 mg p.o. q.12 hours. 11. Methocarbamol 750 mg daily. 12. Reglan 10 mg daily. 13. Oxycodone 15 mg p.o. q.6 hours. 14. OxyContin 40 mg p.o. 15. Phenergan 25 mg p.o. q.6 hours. 16. Crestor 20 mg q. daily. ALLERGIES: SHE IS ALLERGIC TO: 1. CODEINE. 2. KETOROLAC. 4. ZOFRAN. 5. DOMPERIDONE. PHYSICAL EXAM: GENERAL: The patient is lying in bed, uncomfortable, not in distress. She is complaining of pain. She generally looks well. Morbidly obese. VITAL SIGNS: Temperature 98.5, heart rate 101, blood pressure is 154/95, respiratory rate 16, saturation 100% on room air. HEAD: Normocephalic, atraumatic. EYES: Pupils round, reactive to light and accommodation bilaterally. Extraocular muscles intact. NECK: Supple. No increased JVD. No thyromegaly. No lymphadenopathy. EARS: Tympanic membranes intact bilaterally. No discharge from the ears. No discharge from the nose. CARDIOVASCULAR: Normal S1/S2. Regular rate and rhythm. No murmur. No gallop. RESPIRATORY: Good air entry bilaterally. No wheezing. No crackles. No chest deformity. ABDOMEN: Obese. Bowel sounds active. No organomegaly. No rebound. MUSCULOSKELETAL: No edema. NEUROLOGICAL EXAM: Awake, alert. SKIN: No rash. HEMATOLOGIC/LYMPHOCYTIC: No anemia, no easy bruising. LABORATORY: White blood cell count 6.6, hemoglobin 11.3, hematocrit 33. Sodium 143, potassium 4.7, creatinine 3.0, GFR is 20. Cardiac enzymes are negative. EKG is unremarkable. Chest X-Ray: No pneumonia. EKG: No ST-segment elevation. ASSESSMENT: 1. Chest pain, rule out MRI. 2. Coronary artery disease. 3. Diabetes type 2, hypertension, poorly controlled. 4. Chronic pain syndrome, on multiple medications. 5. Post-traumatic stress disorder, on Abilify. PLAN: Admit to telemetry for observation. Will get 3 sets of cardiac enzymes. Continue nitroglycerine and aspirin. EKG in the morning. Will start beta gayle, Toprol XL 25 mg daily. Nitroglycerin and Dilaudid for pain. Continue her home medications. If cardiac enzymes are negative and EKG is normal tomorrow, will discharge her tomorrow morning. CODE STATUS: FULL CODE. TIME SPENT: One hour. DICTATING PHYSICIAN: DELL LOW M.D. [id number] PHY#: [id number] ID: [id number] JOB#: [id number] ACCT: [id number] cc: > MTDD
--- NOTE | 2017-03-15 12:10 | PDOC PROGRESS REPORT ---
Subjective Progress Note for:: 03/15/17 Subjective:: f/u chest pain, constipation, chronic DUKES admitted for evaluation of chest pressure and ischemic evaluation negative. she is chronic narcotic user for pain and is found obstipated on exam and imaging and somewhat resistant to taking the meds needed to free her up choosing instead to leverage her pain needs against treatment for her bowels. she reports persistent DUKES that is global and "like my usual migraine for which they give me IV dilaudid, compazine and IV benadryl in the ER". she reports no bowel movement overnight. ROS: all systems reviewed, see above, remaining systems negative Physical Exam Vital Signs: Temp Pulse Resp BP Pulse Ox 98.6 F 75 18 130/73 H 100 03/15/17 11:52 03/15/17 11:52 03/15/17 11:52 03/15/17 11:52 03/15/17 11:52 Intake & Output 03/14/17 03/15/17 03/16/17 06:59 06:59 06:59 Intake Total 72 1160 Balance 72 1160 Weight 108.2 kg 108.2 kg General appearance: PRESENT: morbidly obese, well-developed Mouth exam: PRESENT: moist, neck supple Neck exam: PRESENT: full ROM. ABSENT: carotid bruit, JVD, lymphadenopathy, tenderness, tracheal deviation Respiratory exam: PRESENT: clear to auscultation salazar, unlabored Cardiovascular exam: PRESENT: RRR. ABSENT: systolic murmur, tachycardia Pulses: PRESENT: normal carotid pulses, normal radial pulses Vascular exam: PRESENT: normal capillary refill GI/Abdominal exam: PRESENT: hypoactive bowel sounds, soft, tenderness - diffuse mild tender to palpation Extremities exam: ABSENT: pedal edema Musculoskeletal exam: PRESENT: ambulatory, full ROM Neurological exam: PRESENT: alert, awake, oriented to person, oriented to place , oriented to time, oriented to situation, reflexes normal. ABSENT: motor sensory deficit, aphasic Psychiatric exam: PRESENT: appropriate affect, normal mood. ABSENT: agitated, anxious Skin exam: PRESENT: dry, warm Results Laboratory Results: 03/14/17 03:34 03/15/17 06:20 03/15/17 06:20 Sodium 143.4 Potassium 4.6 Chloride 105 Carbon Dioxide 29 Anion Gap 9 BUN 28 H Creatinine 2.80 H Est GFR ( Amer) 22 L Est GFR (Non-Af Amer) 18 L Glucose 114 H Calcium 8.4 Total Bilirubin 0.3 AST 14 ALT 26 Alkaline Phosphatase 162 H Total Protein 6.3 Albumin 3.2 L 03/13/17 03/13/17 03/13/17 21:30 21:30 21:30 Creatine Kinase 54 CK-MB (CK-2) 0.65 Troponin I < 0.012 03/14/17 03/14/17 03/14/17 03:34 03:34 11:31 Creatine Kinase 54 59 CK-MB (CK-2) 0.49 Troponin I < 0.012 03/14/17 03/15/17 11:31 06:20 Creatine Kinase CK-MB (CK-2) 0.62 Troponin I 0.016 < 0.012 Assessment & Plan - Diagnosis (1) Acute on chronic kidney failure Qualifiers: Acute renal failure type: unspecified Chronic kidney disease stage: stage 4 (severe) Qualified Code(s): N17.9 - Acute kidney failure, unspecified; N18.4 - Chronic kidney disease, stage 4 (severe); N18.4 - Chronic kidney disease , stage 4 (severe); N18.4 - Chronic kidney disease, stage 4 (severe); N18.4 - Chronic kidney disease, stage 4 (severe) Is this a current diagnosis for this admission?: Yes Plan: Improved with IV fluids. Likely back to baseline. (2) Constipation Qualifiers: Constipation type: unspecified constipation type Qualified Code(s): K59.00 - Constipation, unspecified Is this a current diagnosis for this admission?: Yes Plan: Unchanged and likely accounts for the majority of her symptoms. Continue to encourage bowel regimen as she will allow. (3) Chest pain with moderate risk for cardiac etiology Is this a current diagnosis for this admission?: Yes Plan: Rule out for acute cardiac ischemia with negative serial enzymes and no ischemic changes noted on EKG. Likely atypical pain related to the above. (4) Fibromyalgia Is this a current diagnosis for this admission?: Yes Plan: This is a confounder in her presentation, making differentiation of her pain difficult. (5) Migraine Qualifiers: Migraine type: unspecified Intractability: intractable Is this a current diagnosis for this admission?: Yes Plan: Improved with IM Compazine and IV Benadryl. - Time Time Spent with patient: 35 or more minutes Medications reviewed and adjusted accordingly: Yes - Plan Summary Plan Summary: Likely home tomorrow if we can get her bowels moving I think will resolve most if not all of her complaints.
[2017-03-15] MEDS: DIAZEPAM 5 MG TABLET PO PRN (16:20)
[2017-03-15] MEDS: ATORVASTATIN CALCIUM 20 MG TABLET PO SCH (22:33)
[2017-03-15] MEDS: ARIPIPRAZOLE 5 MG TABLET PO SCH (22:35)
[2017-03-15] MEDS: ZOLPIDEM TARTRATE 5 MG TABLET PO SCH (22:35)
[2017-03-16] MEDS: LANSOPRAZOLE 30 MG TAB.RAP.DR PO SCH ×2 (05:21→17:01)
[2017-03-16] MEDS: CLONIDINE HCL 0.2 MG TABLET PO SCH ×3 (05:21→21:19)
[2017-03-16] MEDS: DIAZEPAM 5 MG TABLET PO PRN (05:23)
[2017-03-16] MEDS: OXYCODONE-ACETAMINOPHEN 5-325 MG TABLET PO PRN (08:46)
[2017-03-16] MEDS: OXYCODONE HCL SR 40 MG TABLET PO SCH ×2 (10:27→21:19)
[2017-03-16] MEDS: LISINOPRIL 10 MG TABLET PO SCH ×2 (10:27→17:01)
[2017-03-16] MEDS: ASPIRIN 325 MG TABLET PO SCH (10:27)
[2017-03-16] MEDS: ENOXAPARIN SODIUM INJ 30 MG/0.3 ML DISP.SYRIN SUBCUT SCH (10:27)
[2017-03-16] MEDS: DOCUSATE SODIUM 100 MG CAPSULE PO SCH ×2 (10:27→17:01)
[2017-03-16] MEDS: GABAPENTIN 300 MG CAPSULE PO SCH ×2 (10:28→17:02)
[2017-03-16] MEDS: METOPROLOL SUCCINATE 50 MG TAB.SR.24H PO SCH (10:28)
[2017-03-16] MEDS: DIVALPROEX SODIUM 500 MG TAB.SR.24H PO SCH (10:28)
[2017-03-16] MEDS: AMLODIPINE BESYLATE 10 MG TABLET PO SCH (10:28)
[2017-03-16] MEDS: ESCITALOPRAM OXALATE 10 MG TABLET PO SCH (10:28)
[2017-03-16] MEDS: FOLIC ACID 1 MG TABLET PO SCH (10:28)
[2017-03-16] MEDS: FLUTICASONE NASAL SPRAY 50 MCG/SPRY 120 SPRAY/16 GM NASL SCH (10:29)
[2017-03-16] MEDS: LUBIPROSTONE 24 MCG CAPSULE PO SCH ×2 (10:29→21:18)
[2017-03-16] MEDS: LACTULOSE SYRUP 20 GM/30 ML UDCUP PO SCH ×3 (10:29→17:02)
[2017-03-16] MEDS: NITROGLYCERIN 10 MG (0.4 MG/HR) PATCH.TD24 TD SCH (10:30)
[2017-03-16] MEDS ORDERED: BUTALB/ACETAMINOPHEN/CAFFEINE 1 TAB EACH PO PRN (14:29)
[2017-03-16] MEDS ORDERED: PROMETHAZINE HCL 25 MG TABLET PO ONE (17:00)
[2017-03-16] MEDS ORDERED: DIPHENHYDRAMINE HCL 25 MG CAPSULE PO ONE (17:00)
[2017-03-16] MEDS ORDERED: DIPHENHYDRAMINE HCL 50 MG/ML VIAL IV ONE ×2 (18:30→21:15)
[2017-03-16] MEDS ORDERED: PROMETHAZINE HCL INJ 25 MG/1 ML VIAL IV ONE (18:30)
--- NOTE | 2017-03-16 19:30 | PDOC PROGRESS REPORT ---
Subjective Progress Note for:: 03/16/17 Subjective:: Patient reports she had a large bowel movement yesterday. Her abdominal pain is somewhat improved. Her chest pain is almost resolved. She states that she was feeling better today until she got a migraine headache. She tried a dose of Fioricet which made her nauseated and did not help the headache. No shortness of breath. No dysuria. She does have some nausea and emesis today. Reason For Visit: CHEST PAIN, CONSTIPATION, HEADACHE, ACUTE ON Chronic Physical Exam Vital Signs: Temp Pulse Resp BP Pulse Ox 98.1 F 66 18 142/75 H 100 03/16/17 15:47 03/16/17 15:47 03/16/17 15:47 03/16/17 15:47 03/16/17 15:47 Intake & Output 03/15/17 03/16/17 03/17/17 06:59 06:59 06:59 Intake Total 1160 1063 1010 Balance 1160 1063 1010 Weight 108.2 kg 108.2 kg General appearance: PRESENT: mild distress, obese Head exam: PRESENT: atraumatic, normocephalic Eye exam: PRESENT: EOMI Ear exam: PRESENT: normal external ear exam Mouth exam: PRESENT: moist Respiratory exam: PRESENT: clear to auscultation salazar. ABSENT: rales, rhonchi, wheezes Cardiovascular exam: PRESENT: RRR. ABSENT: diastolic murmur, rubs, systolic murmur Pulses: PRESENT: normal dorsalis pedis pul GI/Abdominal exam: PRESENT: normal bowel sounds, soft. ABSENT: distended, guarding, mass, organolmegaly, rebound, tenderness Extremities exam: ABSENT: pedal edema Neurological exam: PRESENT: alert, oriented to person, oriented to place, oriented to time, oriented to situation Psychiatric exam: PRESENT: flat affect Skin exam: PRESENT: dry, intact, warm Results Laboratory Results: 03/14/17 03:34 03/15/17 06:20 03/13/17 03/13/17 03/13/17 21:30 21:30 21:30 Creatine Kinase 54 CK-MB (CK-2) 0.65 Troponin I < 0.012 03/14/17 03/14/17 03/14/17 03:34 03:34 11:31 Creatine Kinase 54 59 CK-MB (CK-2) 0.49 Troponin I < 0.012 03/14/17 03/15/17 11:31 06:20 Creatine Kinase CK-MB (CK-2) 0.62 Troponin I 0.016 < 0.012 Impressions: Chest X-Ray 03/13/17 14:12 IMPRESSION: Stable radiographic appearance of the chest. No evidence of acute cardiopulmonary abnormality. Abdomen X-Ray 03/13/17 19:47 IMPRESSION: Nonspecific, nonobstructed bowel gas pattern noting copious colonic gas and stool. Assessment & Plan - Diagnosis (1) Acute on chronic kidney failure Qualifiers: Acute renal failure type: unspecified Chronic kidney disease stage: stage 4 (severe) Qualified Code(s): N17.9 - Acute kidney failure, unspecified; N18.4 - Chronic kidney disease, stage 4 (severe); N18.4 - Chronic kidney disease , stage 4 (severe); N18.4 - Chronic kidney disease, stage 4 (severe); N18.4 - Chronic kidney disease, stage 4 (severe) Is this a current diagnosis for this admission?: Yes Plan: Perhaps acute component is improving, creatinine is improved today. We will continue to monitor. (2) Constipation Qualifiers: Constipation type: unspecified constipation type Qualified Code(s): K59.00 - Constipation, unspecified Is this a current diagnosis for this admission?: Yes Plan: large BM yesterday, will start BID senna to help prevent constipation as she is on chronic opiates (3) Fibromyalgia Is this a current diagnosis for this admission?: Yes Plan: stable, no changes made today in FM regimen (4) Migraine Qualifiers: Migraine type: unspecified Intractability: intractable Is this a current diagnosis for this admission?: Yes Plan: fiorcet given and not successful, made her nauseated and she had some emesis. In the past she has used a combination of Compazine and Benadryl for relief of migraine/tension headache and I have given her Phenergan 12.5 mg IV 1 and Benadryl 25 mg IV 1. With this headache has improved. I started with oral preparations of Phenergan and Benadryl but the patient threw those up. - Time Time Spent with patient: 25-34 minutes
[2017-03-16] MEDS ORDERED: SENNOSIDES/DOCUSATE 8.6-50 MG 1 EACH TABLET PO ONE (20:00)
[2017-03-16] MEDS ORDERED: PROCHLORPERAZINE EDISYLATE INJ 10 MG/2 ML VIAL IV ONE (21:15)
[2017-03-16] MEDS: ARIPIPRAZOLE 5 MG TABLET PO SCH (21:18)
[2017-03-16] MEDS: ATORVASTATIN CALCIUM 20 MG TABLET PO SCH (21:18)
[2017-03-16] MEDS: ZOLPIDEM TARTRATE 5 MG TABLET PO SCH (21:18)
[2017-03-17] MEDS: LANSOPRAZOLE 30 MG TAB.RAP.DR PO SCH (05:24)
[2017-03-17] MEDS: CLONIDINE HCL 0.2 MG TABLET PO SCH (05:25)
[2017-03-17] MEDS ORDERED: DIPHENHYDRAMINE HCL 25 MG CAPSULE PO PRN (09:50)
[2017-03-17] MEDS ORDERED: PROMETHAZINE HCL 25 MG SUPP.RECT PR PRN (09:52)
[2017-03-17] MEDS ORDERED: SENNOSIDES/DOCUSATE 8.6-50 MG 1 EACH TABLET PO SCH ×2 (10:00→18:00)
[2017-03-17] MEDS: FLUTICASONE NASAL SPRAY 50 MCG/SPRY 120 SPRAY/16 GM NASL SCH (10:22)
[2017-03-17] MEDS: ASPIRIN 325 MG TABLET PO SCH (10:23)
[2017-03-17] MEDS: LACTULOSE SYRUP 20 GM/30 ML UDCUP PO SCH (10:23)
[2017-03-17] MEDS: FOLIC ACID 1 MG TABLET PO SCH (10:24)
[2017-03-17] MEDS: LUBIPROSTONE 24 MCG CAPSULE PO SCH (10:24)
[2017-03-17] MEDS: LISINOPRIL 10 MG TABLET PO SCH (10:24)
[2017-03-17] MEDS: OXYCODONE HCL SR 40 MG TABLET PO SCH (10:25)
[2017-03-17] MEDS: AMLODIPINE BESYLATE 10 MG TABLET PO SCH (10:25)
[2017-03-17] MEDS: ESCITALOPRAM OXALATE 10 MG TABLET PO SCH (10:26)
[2017-03-17] MEDS: METOPROLOL SUCCINATE 50 MG TAB.SR.24H PO SCH (10:26)
[2017-03-17] MEDS: GABAPENTIN 300 MG CAPSULE PO SCH (10:27)
[2017-03-17] MEDS: NITROGLYCERIN 10 MG (0.4 MG/HR) PATCH.TD24 TD SCH (10:29)
[2017-03-17] MEDS: ENOXAPARIN SODIUM INJ 30 MG/0.3 ML DISP.SYRIN SUBCUT SCH (10:29)
[2017-03-17] MEDS: DIVALPROEX SODIUM 500 MG TAB.SR.24H PO SCH (10:29)
[2017-03-17 10:57] VITALS: BP 122/75
--- NOTE | 2017-03-17 20:00 | PDOC DISCHARGE SUMMARY ---
General - Admit/Disc Date/PCP Admission Date/Primary Care Provider: 03/13/17 16:39 Discharge Date: 03/17/17 - Discharge Diagnosis (1) Acute on chronic kidney failure Is this a current diagnosis for this admission?: Yes Summary: Patient had a slight bump in her creatinine on admission which trended down for discharge. Charge back to the care of her outpatient specialists. (2) Constipation Is this a current diagnosis for this admission?: Yes Summary: Resolved. Patient was discharged on senna/Dulcolax 2 tabs p.o. twice daily. I have asked her to use MiraLAX once daily until she has a bowel movement. If she does not have a bowel movement in 3 days she is asked to call her primary care doctor. This is opioid induced constipation. (3) Fibromyalgia Is this a current diagnosis for this admission?: Yes Summary: Stable on discharge, discharged on home meds (4) Migraine Is this a current diagnosis for this admission?: Yes Summary: Patient received several rounds medications for her migraine and stress headache syndrome. She received Fioricet which did not work this time, I then gave her Phenergan and Benadryl which did not work and the not turn us gave her a dose of Compazine along with a dose of Benadryl which she stated she had used in the past. This combination did help her. This morning, on the day of discharge, she felt well enough to go home. - Additional Information Discharge Diet: Cardiac Discharge Activity: Slowly Increase Activity Home Medications: Amlodipine Besylate [Norvasc 10 mg Tablet] 10 mg PO DAILY 03/14/17 Aripiprazole [Abilify 15 mg Tablet] 15 mg PO DAILY 03/14/17 Butalb/Acetaminophen/Caffeine [Fioricet (50-325-40 mg) Tablet] 1 tab PO Q4HP PRN 03/14/17 Clonidine HCl [Catapres 0.3 mg Tablet] 0.3 mg PO Q8 03/14/17 Diazepam [Valium 5 mg Tablet] 5 mg PO Q12HP PRN 03/14/17 Divalproex Sodium [Divalproex Sodium ER] 500 mg PO Q12 03/14/17 Escitalopram Oxalate [Lexapro] 40 mg PO DAILY 03/14/17 Eszopiclone [Lunesta] 3 mg PO QHS 03/14/17 Fluticasone Propionate [Flonase Nasal Carrington 50 Mcg/Carrington 16 gm] 2 spray NAREB DAILY 03/14/17 Folic Acid [Folvite 1 mg Tablet] 1 mg PO DAILY 03/14/17 Furosemide [Lasix 40 mg Tablet] 40 mg PO QAM 03/14/17 Gabapentin [Neurontin 300 mg Capsule] 300 mg PO Q12 03/14/17 Lisinopril [Zestril] 20 mg PO Q12 03/14/17 Methocarbamol [Robaxin 750 mg Tablet] 750 mg PO Q6HP PRN 03/14/17 Oxycodone HCl [Oxy-Ir 5 mg Tablet] 15 mg PO Q6HP PRN 03/14/17 Oxycodone HCl [Oxycontin Sr 40 mg Tablet] 40 mg PO Q12 03/14/17 Promethazine HCl [Phenergan 25 mg Tablet] 25 mg PO Q6HP PRN 03/14/17 Rosuvastatin Calcium [Crestor 20 mg Tablet] 20 mg PO QHS 03/14/17 Diphenhydramine HCl [Benadryl 25 mg Capsule] 25 mg PO DAILY PRN #15 capsule Promethazine HCl [Phenergan 25 mg Supp.rect] 25 mg RI DAILY PRN #15 supp.rect Sennosides/Docusate 8.6-50 mg [Senna Plus Tablet] 2 each PO BID 30 Days #120 tablet 03/17/17 History of Present Illness History of Present Illness: DAREN ROSS is a 51 year old female with fibromyalgia, migraine headaches, chronic opioid use, goal segmental glomerulosclerosis and stage IV chronic kidney disease. She was admitted with chest pain which was found to be related to obstipation. Cardiac workup was negative. She is a large bowel movement after several days. The day before discharge she experienced a headache syndrome which seems to be a combination of migraine and tension headache. Please see migraine headache above for interventions. She was stable for discharge home. Physical Exam Vital Signs: Temp Pulse Resp BP Pulse Ox 97.8 F 61 16 122/75 87 L 03/17/17 10:55 03/17/17 10:55 03/17/17 10:55 03/17/17 10:55 03/17/17 10:55 Intake & Output 03/16/17 03/17/17 03/18/17 06:59 06:59 06:59 Intake Total 1063 1590 Balance 1063 1590 Weight 106.9 kg General appearance: PRESENT: no acute distress, obese Eye exam: PRESENT: EOMI Mouth exam: PRESENT: moist, neck supple Respiratory exam: PRESENT: clear to auscultation salazar. ABSENT: rales, rhonchi, wheezes Cardiovascular exam: PRESENT: RRR. ABSENT: diastolic murmur, rubs, systolic murmur Pulses: PRESENT: normal radial pulses GI/Abdominal exam: PRESENT: normal bowel sounds, soft. ABSENT: distended, guarding, mass, organolmegaly, rebound, tenderness Musculoskeletal exam: PRESENT: normal inspection Neurological exam: PRESENT: alert, awake, oriented to person, oriented to place , oriented to situation Psychiatric exam: PRESENT: depressed Results Laboratory Results: 03/14/17 03:34 03/15/17 06:20 03/13/17 03/13/17 03/13/17 21:30 21:30 21:30 Creatine Kinase 54 CK-MB (CK-2) 0.65 Troponin I < 0.012 03/14/17 03/14/17 03/14/17 03:34 03:34 11:31 Creatine Kinase 54 59 CK-MB (CK-2) 0.49 Troponin I < 0.012 03/14/17 03/15/17 11:31 06:20 Creatine Kinase CK-MB (CK-2) 0.62 Troponin I 0.016 < 0.012 Impressions: Chest X-Ray 03/13/17 14:12 IMPRESSION: Stable radiographic appearance of the chest. No evidence of acute cardiopulmonary abnormality. Abdomen X-Ray 03/13/17 19:47 IMPRESSION: Nonspecific, nonobstructed bowel gas pattern noting copious colonic gas and stool. Qualifiers PATEINT BEING DISCHARGED WITH ANY OF THE FOLLOWING DIAGNOSIS?: No
== END 2017-03-17 11:44 | disposition home or self-care (01) | DRG 392 ==
LOC: ER 13:38 → OBSVTOIN 16:39 → EH 16:39 → 5 19:16
PROVIDERS: ADMIT Internal Medicine; ATTEND Internal Medicine
DX: K59.03 Drug induced constipation (principal); N17.9 Acute kidney failure, unspecified; N18.4 Chronic kidney disease, stage 4 (severe); Z68.41 Body mass index [BMI] 40.0-44.9, adult; T40.2X5A Adverse effect of other opioids, initial encounter; R07.9 Chest pain, unspecified; M79.7 Fibromyalgia; G44.209 Tension-type headache, unspecified, not intractable; I12.9 Hypertensive chronic kidney disease with stage 1 through stage 4 chronic kidney disease, or unspecified chronic kidney disease; F32.9 Major depressive disorder, single episode, unspecified; G89.4 Chronic pain syndrome; I25.10 Atherosclerotic heart disease of native coronary artery without angina pectoris; E78.5 Hyperlipidemia, unspecified; E66.01 Morbid (severe) obesity due to excess calories; F43.10 Post-traumatic stress disorder, unspecified; G43.919 Migraine, unspecified, intractable, without status migrainosus; K21.9 Gastro-esophageal reflux disease without esophagitis; K58.1 Irritable bowel syndrome with constipation; M19.90 Unspecified osteoarthritis, unspecified site; Z90.49 Acquired absence of other specified parts of digestive tract; Z90.710 Acquired absence of both cervix and uterus; Z79.891 Long term (current) use of opiate analgesic; Z79.899 Other long term (current) drug therapy; Z88.6 Allergy status to analgesic agent; Z88.8 Allergy status to other drugs, medicaments and biological substances; Z82.49 Family history of ischemic heart disease and other diseases of the circulatory system
CPT/HCPCS: 36415; 71020; 74020; 80053; 80061; 82550; 82553; 82962; 84484; 85025; 93005; 93010; 96374; 99285; G0378; J0360; J0780; J1170; J1200; J1650; J2060; J2550; J3490; J7030

== ENCOUNTER → 2017-04-02 | Outpatient (CLI) | payer MEDICAID ==
[2017-04-02 12:51] LABS: APPEARANCE,URINE CLEAR; BILIRUBIN,URINE NEGATIVE (NEGATIVE); GLUCOSE, URINE NEGATIVE (NEGATIVE); KETONES,URINE NEGATIVE (NEGATIVE); LEUKOCYTE ESTERASE,URINE SMALL (NEGATIVE); NITRITE,URINE NEGATIVE (NEGATIVE); PROTEIN,URINE >=500 mg/dL (NEGATIVE); URINE SPECIFIC GRAVITY 1.009; UROBILINOGEN,URINE NEGATIVE mg/dL (<2.0)
[2017-04-02 13:04] LABS: ANION GAP 16 (5-19); BLOOD UREA NITROGEN 33 mg/dL (7-20); CALCIUM 9.9 mg/dL (8.4-10.2); CARBON DIOXIDE 30 mmol/L (22-30); CHLORIDE 102 mmol/L (98-107); CREATININE RESULT 3.69 mg/dL (0.52-1.25); GLUCOSE 132 mg/dL (75-110); HEMATOCRIT 40.9 % (36.0-47.0); HEMOGLOBIN 13.7 g/dL (12.0-15.5); HGB HCT DIFFERENCE 0.2; MEAN CORPUSCULAR HEMOGLOBIN 28.1 pg (27.0-33.4); MEAN CORPUSCULAR HGB CONC 33.5 g/dL (32.0-36.0); MEAN CORPUSCULAR VOLUME 84 fl (80-97); PHOSPHORUS 5.3 mg/dL (2.5-4.5); RED BLOOD COUNT 4.88 10^6/uL (3.72-5.28); RED CELL DISTRIBUTION WIDTH 13.7 % (11.5-14.0); SODIUM 147.6 mmol/L (137-145); WHITE BLOOD COUNT 4.2 10^3/uL (4.0-10.5)
[2017-04-02 13:25] LABS: URINE CREATININE 76.9 mg/dL (15-278)
[2017-04-02 13:30] LABS: URINE PROTEIN 368.3 mg/dL (<12)
== END ==
LOC: OD 11:06
PROVIDERS: ATTEND Physician Assistant Medical
DX: N18.4 Chronic kidney disease, stage 4 (severe) (principal); N04.1 Nephrotic syndrome with focal and segmental glomerular lesions; I50.9 Heart failure, unspecified; R80.9 Proteinuria, unspecified
CPT/HCPCS: 36415; 80048; 81001; 82570; 83970; 84100; 84156; 85027

== ENCOUNTER 2017-04-14 15:13 | Emergency (ER) | payer MEDICAID ==
--- NOTE | 2017-04-14 15:52 | ER Document Report ---
ED Medical Screen (RME) - General Chief Complaint: Shortness Of Breath Stated Complaint: SHORTNESS OF BREATH Time Seen by Provider: 04/14/17 15:46 Notes: 51-year-old female past medical history CKD awaiting dialysis fistula placement here with complaints of progressively worsening shortness of breath over the past few days. She has also had some leg swelling that resolves completely after taking her furosemide. Shortness of breath is worse with laying flat and improved with sitting up. She has to sleep on several pillows due to the shortness of breath. She has no prior history of congestive heart failure. EXAM Clear to auscultation bilaterally without rales TRAVEL OUTSIDE OF THE [place] IN LAST 30 DAYS: No - Related Data Allergies/Adverse Reactions: codeine [Codeine] Allergy (Mild, Verified 04/14/17 15:14) Itching ketorolac tromethamine [From Toradol] Allergy (Unknown, Verified 04/14/17 15:14) nalbuphine HCl [From Nubain] Allergy (Unknown, Verified 04/14/17 15:14) ondansetron HCl [From Zofran] Allergy (Unknown, Verified 04/14/17 15:14) droperidol [Droperidol] Allergy (Verified 04/14/17 15:14) heart racing, doesn't like how it makes her feel Past Medical History - Social History Chew tobacco use (# tins/day): No Frequency of alcohol use: None Drug Abuse: None - Past Medical History Cardiac Medical History: Reports: Hx Coronary Artery Disease, Hx Hypercholesterolemia, Hx Hypertension Pulmonary Medical History: Reports: Hx Pneumonia, Hx Sleep Apnea Neurological Medical History: Reports: Hx Migraine Endocrine Medical History: Reports: Hx Diabetes Mellitus Type 2 Renal/ Medical History: Reports: Hx End Stage Renal Disease - Stage IV pending dialysis start after fistula placement, Hx Renal Insufficiency - stage 3 according to patient. Denies: Hx Peritoneal Dialysis GI Medical History: Reports: Hx Gastroesophageal Reflux Disease, Hx Irritable Bowel Musculoskeltal Medical History: Reports Hx Arthritis, Reports Hx Fibromyalgia, Reports Hx Musculoskeletal Deformity, Reports Hx Musculoskeletal Trauma Psychiatric Medical History: Reports: Hx Depression, Hx Post Traumatic Stress Disorder Past Surgical History: Reports: Hx Appendectomy, Hx Cardiac Catheterization - 3 , last one 3 years ago showing no blockages, Hx Cholecystectomy, Hx Hysterectomy , Hx Orthopedic Surgery - RIGHT ANKLE SURGERY 01/2011, shoulder surgery, Hx Thyroid Surgery, Hx Vascular Surgery - port a cath R upper chest. Denies: Hx Pacemaker - Immunizations Hx Diphtheria, Pertussis, Tetanus Vaccination: No History of Influenza Vaccine for 01/2017 - 06/2017 Season: Yes Influenza Administration Date for 01/2017 - 06/2017 Season: 01/16/17 Physical Exam - Vital signs Vitals: Temp Pulse Resp BP Pulse Ox 97.9 F 83 18 131/83 H 96 04/14/17 15:19 04/14/17 15:19 04/14/17 15:19 04/14/17 15:19 04/14/17 15:19 Course - Vital Signs Vital signs: Temp Pulse Resp BP Pulse Ox 97.9 F 83 18 131/83 H 96 04/14/17 15:19 04/14/17 15:19 04/14/17 15:19 04/14/17 15:19 04/14/17 15:19
--- NOTE | 2017-04-14 16:21 | RADIOLOGY REPORT (SQ) ---
EXAM DESCRIPTION: CHEST PA/LAT COMPLETED DATE/TIME: 04/14/2017 4:13 pm REASON FOR STUDY: SOB; eval for pulm edema pna ptx etc COMPARISON: 03/13/2017. EXAM PARAMETERS: NUMBER OF VIEWS: two views TECHNIQUE: Digital Frontal and Lateral radiographic views of the chest acquired. RADIATION DOSE: NA LIMITATIONS: none FINDINGS: LUNGS AND PLEURA: No opacities, masses or pneumothorax. No pleural effusion. MEDIASTINUM AND HILAR STRUCTURES: No masses or contour abnormalities. HEART AND VASCULAR STRUCTURES: Heart normal size. No evidence for failure. BONES: No acute findings. HARDWARE: Vascular access port. Left shoulder prosthesis. Clips in the upper abdomen. OTHER: No other significant finding. IMPRESSION: NO SIGNIFICANT RADIOGRAPHIC FINDING IN THE CHEST. TECHNICAL DOCUMENTATION: JOB ID: [id number] [employer]- All Rights Reserved
[2017-04-14 17:04] LABS: ABSOLUTE BASOPHILS # (AUTO) 0.1 10^3/uL (0.0-0.2); ABSOLUTE EOSINOPHILS # (AUTO) 0.1 10^3/uL (0.0-0.6); ABSOLUTE LYMPHOCYTES (AUTO) 1.8 10^3/uL (0.5-4.7); ABSOLUTE MONOCYTES (AUTO) 0.6 10^3/uL (0.1-1.4); ABSOLUTE NEUT (AUTO) 2.2 10^3/uL (1.7-8.2); BASOPHILS % (AUTO) 1.1 % (0-2); EOSINOPHILS % (AUTO) 2.5 % (0-6); HEMATOCRIT 32.6 % (36.0-47.0); HEMOGLOBIN 10.7 g/dL (12.0-15.5); LYMPHOCYTES % (AUTO) 37.8 % (13-45); MEAN CORPUSCULAR HEMOGLOBIN 27.6 pg (27.0-33.4); MEAN CORPUSCULAR HGB CONC 32.9 g/dL (32.0-36.0); MEAN CORPUSCULAR VOLUME 84 fl (80-97); MONOCYTES % (AUTO) 11.8 % (3-13); PLATELET COUNT 183 10^3/uL (150-450); RED BLOOD COUNT 3.89 10^6/uL (3.72-5.28); RED CELL DISTRIBUTION WIDTH 13.7 % (11.5-14.0); SEGMENTED NEUTROPHILS % (AUTO) 46.8 % (42-78); TOTAL CELLS COUNTED % (AUTO) 100 %; WHITE BLOOD COUNT 4.7 10^3/uL (4.0-10.5)
[2017-04-14] MEDS ORDERED: PROMETHAZINE HCL INJ 25 MG/1 ML VIAL IV ONE (17:12)
[2017-04-14] MEDS ORDERED: MORPHINE SULFATE 10 MG/ML INJ IV ONE (17:13)
[2017-04-14 17:31] LABS: ANION GAP 8 (5-19); BLOOD UREA NITROGEN 37 mg/dL (7-20); CALCIUM 8.8 mg/dL (8.4-10.2); CARBON DIOXIDE 32 mmol/L (22-30); CHLORIDE 104 mmol/L (98-107); GLUCOSE 93 mg/dL (75-110); POTASSIUM 3.7 mmol/L (3.6-5.0); SODIUM 144.3 mmol/L (137-145)
[2017-04-14 17:43] LABS: NT PRO BNP 178 pg/mL (5-900)
[2017-04-14 17:49] LABS: TROPONIN I < 0.012 ng/mL
--- NOTE | 2017-04-14 18:01 | ER Document Report ---
ED General - General Chief Complaint: Shortness Of Breath Stated Complaint: SHORTNESS OF BREATH Time Seen by Provider: 04/14/17 15:46 Mode of Arrival: Ambulatory Information source: Patient, Relative Notes: Patient is a 51-year-old morbidly obese black female comes to emergency room with complaint of shortness of breath for the past 3 days. Patient states she is having increasing dyspnea on exertion primarily when compared to walking up 11 steps to her house. Her and her state that is something relatively new. She also states that she cannot lay down without feeling like she is smothering at times. That has been going on for a long time. Patient also again mentions that she has stage IV kidney disease she is being seen for possibility of placing a shunt very soon within the next month most likely she says. She currently takes 80 mg of Lasix a day she states that she has diabetes but it is diet controlled. She denies any cardiac history or problems she does state that she has had some lower extremity edema that is unusually increased from her normal. She has had on and off chest discomfort for months but primarily when she takes a deep breath. Patient's primary physician is Gudelia Pagan the patient also states that she does go to pain management and is on narcotic medication for back pain. TRAVEL OUTSIDE OF THE [place] IN LAST 30 DAYS: No - HPI Patient complains to provider of: Shortness of breath Onset: Other - 3 days Onset/Duration: Gradual, Persistent, Worse Quality of pain: Throbbing Severity: Moderate Pain Level: 3 Context: History of kidney disease Associated symptoms: Hurts to breath. denies: None, Allergy/hay fever, Body/ muscle aches, Chest pain, Chills, Nonproductive cough, Productive cough, Diarrhea, Drooling, Earache, Fever, Headache, Hoarseness, Leg swelling, Nausea, Vomiting, Rhinnorhea, Sinus pain/drainage, Shortness of breath, Slow to respond , Sore throat, Sweating, Weakness, Other Exacerbated by: Supine, Movement, Walking Relieved by: Remaining still Similar symptoms previously: Yes Recently seen / treated by doctor: Yes - Dr. Gudelia Mosley - Related Data Allergies/Adverse Reactions: codeine [Codeine] Allergy (Mild, Verified 04/14/17 15:14) Itching ketorolac tromethamine [From Toradol] Allergy (Unknown, Verified 04/14/17 15:14) nalbuphine HCl [From Nubain] Allergy (Unknown, Verified 04/14/17 15:14) ondansetron HCl [From Zofran] Allergy (Unknown, Verified 04/14/17 15:14) droperidol [Droperidol] Allergy (Verified 04/14/17 15:14) heart racing, doesn't like how it makes her feel Past Medical History - General Information source: Patient, Relative Last Menstrual Period: hysterectomy - Social History Smoking Status: Never Smoker Chew tobacco use (# tins/day): No Frequency of alcohol use: None Drug Abuse: None Lives with: Family Family History: CAD, CVA, Hypertension Patient has suicidal ideation: No Patient has homicidal ideation: No - Past Medical History Cardiac Medical History: Reports: Hx Coronary Artery Disease, Hx Hypercholesterolemia, Hx Hypertension Pulmonary Medical History: Reports: Hx Pneumonia, Hx Sleep Apnea Neurological Medical History: Reports: Hx Migraine Endocrine Medical History: Reports: Hx Diabetes Mellitus Type 2 Renal/ Medical History: Reports: Hx End Stage Renal Disease - Stage IV pending dialysis start after fistula placement, Hx Renal Insufficiency - stage 3 according to patient. Denies: Hx Peritoneal Dialysis GI Medical History: Reports: Hx Gastroesophageal Reflux Disease, Hx Irritable Bowel Musculoskeltal Medical History: Reports Hx Arthritis, Reports Hx Fibromyalgia, Reports Hx Musculoskeletal Deformity, Reports Hx Musculoskeletal Trauma Psychiatric Medical History: Reports: Hx Depression, Hx Post Traumatic Stress Disorder Past Surgical History: Reports: Hx Appendectomy, Hx Cardiac Catheterization - 3 , last one 3 years ago showing no blockages, Hx Cholecystectomy, Hx Hysterectomy , Hx Orthopedic Surgery - RIGHT ANKLE SURGERY 01/2011, shoulder surgery, Hx Thyroid Surgery, Hx Vascular Surgery - port a cath R upper chest. Denies: Hx Pacemaker - Immunizations Hx Diphtheria, Pertussis, Tetanus Vaccination: No Hx Pneumococcal Vaccination: 04/22/11 Review of Systems - Review of Systems Constitutional: No symptoms reported EENT: No symptoms reported Cardiovascular: Chest pain Respiratory: See HPI, Short of breath Gastrointestinal: No symptoms reported Genitourinary: Flank pain Female Genitourinary: No symptoms reported. denies: See HPI, Last menstrual period, , Post menopausal, Heavy/abnormal periods, Irregular period, Vaginal bleeding, Vaginal discharge, Vaginal odor, Painful intercourse, Other Musculoskeletal: No symptoms reported Skin: No symptoms reported Hematologic/Lymphatic: No symptoms reported Neurological/Psychological: No symptoms reported -: Yes All other systems reviewed and negative Physical Exam - Vital signs Vitals: Temp Pulse Resp BP Pulse Ox 97.9 F 83 18 131/83 H 96 04/14/17 15:19 04/14/17 15:19 04/14/17 15:19 04/14/17 15:19 04/14/17 15:19 Course - Vital Signs Vital signs: Temp Pulse Resp BP Pulse Ox 97.9 F 83 16 127/83 H 100 04/14/17 15:19 04/14/17 15:19 04/14/17 17:01 04/14/17 17:01 04/14/17 18:09 - Laboratory Result Diagrams: 04/14/17 16:54 04/14/17 16:54 Laboratory results interpreted by me: 04/14/17 04/14/17 04/14/17 16:54 16:54 17:42 Hgb 10.7 L Hct 32.6 L Carbon Dioxide 32 H BUN 37 H Creatinine 3.43 H Est GFR ( Amer) 17 L Est GFR (Non-Af Amer) 14 L Urine Protein 100 H Ur Leukocyte Esterase TRACE H - Diagnostic Test Radiology reviewed: Reports reviewed - Chest x-ray shows no acute findings and particularly no congestive heart failure - Transfer of Care Notes: 04/14/17 18:05 Chest x-ray is negative, labs are negative we are just basically pending urinalysis for any abnormalities. Discussed the case with DR Fu and at this point with all being negative the patient's ambulatory pulse ox is normal we can send her home to follow-up with her shuttle preparation supervisor tomorrow. 04/14/17 19:25 I have gone back in and discussed findings with patient and given her handouts of the labs and x-rays we have done. I told her that basically we cannot find anything that is going to hurt her tonight. That she needs to go back to her shuttle preparation supervisor and read by him to see if there is some he can come up with. I explained to patient the only abnormality we had was her BUN/creatinine were elevated but they are right in the ballpark of where she always is. May think that there is still a presentation of worsening renal failure just has not met the numbers yet. Patient is okay with going home and she will follow-up with her shuttle preparation supervisor in the morning. 04/14/17 19:27 I had nursing walk patient with a pulse ox on so they had an ambulatory pulse ox and patient remained 97 for the fourth or fifth time around the room. She did not desaturate at all. 04/14/17 19:30 Also on the state that we have consider the possibility of PE however patient has no side effects or profile that would lead us to believe that she has one. Again she managed to me maintain a saturation and a heart rate normal on her ambulatory pulse ox. She has had no real severe chest pain. At this point with renal failure this is I do not believe we need to do a study for PE. Discharge - Discharge Clinical Impression: Shortness of breath on exertion Renal failure, chronic Qualifiers: Chronic kidney disease stage: stage 4 (severe) Qualified Code(s): N18.4 - Chronic kidney disease, stage 4 (severe) Condition: Good Disposition: HOME, SELF-CARE Instructions: Kidney Failure ([facility]) Additional Instructions: Home and rest. Continue your current medications as ordered. Contact your shuttle preparation supervisor tomorrow for follow-up. Should you have any increasing shortness of breath if you should have swelling of the ankles or you have any concerns return to ER for a recheck. Forms: Elevated Blood Pressure
[2017-04-14 18:55] LABS: APPEARANCE,URINE CLEAR; BILIRUBIN,URINE NEGATIVE (NEGATIVE); COLOR,URINE STRAW; GLUCOSE, URINE NEGATIVE (NEGATIVE); KETONES,URINE NEGATIVE (NEGATIVE); LEUKOCYTE ESTERASE,URINE TRACE (NEGATIVE); NITRITE,URINE NEGATIVE (NEGATIVE); PROTEIN,URINE 100 mg/dL (NEGATIVE); URINE SPECIFIC GRAVITY 1.006; UROBILINOGEN,URINE NEGATIVE mg/dL (<2.0)
[2017-04-14 19:10] LABS: URINE AMPHETAMINES SCREEN NEGATIVE; URINE BARBITURATES SCREEN NEGATIVE; URINE BENZODIAZEPINES SCREEN UNCONFIRMED POSITIVE; URINE COCAINE SCREEN NEGATIVE; URINE MARIJUANA (THC) SCREEN NEGATIVE; URINE METHADONE SCREEN NEGATIVE; URINE PHENCYCLIDINE SCREEN NEGATIVE
[2017-04-14 20:14] VITALS: BP 134/72
--- NOTE | 2017-04-15 07:55 | EKG REPORT ---
SEVERITY:- ABNORMAL ECG - SINUS RHYTHM LEFT VENTRICULAR HYPERTROPHY ST ELEVATION SUGGESTS PERICARDITIS : Confirmed by: Abigail Mandel MD 15-Apr-2017 07:55:06
== END 2017-04-14 20:27 | disposition home or self-care (01) ==
LOC: ER 15:13
DX: I12.9 Hypertensive chronic kidney disease with stage 1 through stage 4 chronic kidney disease, or unspecified chronic kidney disease (principal); E11.22 Type 2 diabetes mellitus with diabetic chronic kidney disease; N18.4 Chronic kidney disease, stage 4 (severe); R06.02 Shortness of breath; R07.1 Chest pain on breathing; I25.10 Atherosclerotic heart disease of native coronary artery without angina pectoris; M54.9 Dorsalgia, unspecified; Z79.891 Long term (current) use of opiate analgesic; Z79.899 Other long term (current) drug therapy; Z88.5 Allergy status to narcotic agent; Z88.8 Allergy status to other drugs, medicaments and biological substances
CPT/HCPCS: 93005; 99285; 96374; 96375; 36415; 85025; 80048; 81001; 84484; 80307; 83880; 71020; 93010; J2270; J2550

== ENCOUNTER → 2017-05-04 | Outpatient (CLI) | payer MEDICAID ==
[2017-05-04 13:25] LABS: HEMATOCRIT 35.1 % (36.0-47.0); HEMOGLOBIN 11.8 g/dL (12.0-15.5); MEAN CORPUSCULAR HEMOGLOBIN 27.7 pg (27.0-33.4); MEAN CORPUSCULAR HGB CONC 33.7 g/dL (32.0-36.0); MEAN CORPUSCULAR VOLUME 82 fl (80-97); PLATELET COUNT 151 10^3/uL (150-450); RED BLOOD COUNT 4.28 10^6/uL (3.72-5.28); RED CELL DISTRIBUTION WIDTH 14.1 % (11.5-14.0); WHITE BLOOD COUNT 3.9 10^3/uL (4.0-10.5)
[2017-05-04 13:42] LABS: ANION GAP 13 (5-19); BLOOD UREA NITROGEN 34 mg/dL (7-20); CALCIUM 9.6 mg/dL (8.4-10.2); CARBON DIOXIDE 31 mmol/L (22-30); CHLORIDE 100 mmol/L (98-107); GLUCOSE 111 mg/dL (75-110); PHOSPHORUS 5.1 mg/dL (2.5-4.5); POTASSIUM 3.8 mmol/L (3.6-5.0); SODIUM 143.6 mmol/L (137-145)
[2017-05-04 13:45] LABS: APPEARANCE,URINE CLEAR; BILIRUBIN,URINE NEGATIVE (NEGATIVE); COLOR,URINE YELLOW; GLUCOSE, URINE NEGATIVE (NEGATIVE); KETONES,URINE NEGATIVE (NEGATIVE); LEUKOCYTE ESTERASE,URINE TRACE (NEGATIVE); NITRITE,URINE NEGATIVE (NEGATIVE); PROTEIN,URINE 100 mg/dL (NEGATIVE); URINE SPECIFIC GRAVITY 1.012; UROBILINOGEN,URINE NEGATIVE mg/dL (<2.0)
[2017-05-04 14:09] LABS: URINE CREATININE 129.8 mg/dL (15-278)
[2017-05-04 14:16] LABS: UR PRO/CREAT RATIO RESULT 2.7 mg/mg (0.0-0.2); URINE PROTEIN 348.7 mg/dL (<12)
== END ==
LOC: OD 12:48
PROVIDERS: ATTEND Internal Medicine Nephrology
DX: N00.8 Acute nephritic syndrome with other morphologic changes (principal); R80.9 Proteinuria, unspecified; I50.9 Heart failure, unspecified
CPT/HCPCS: 36415; 80048; 81001; 82570; 83970; 84100; 84156; 85027

== ENCOUNTER → 2017-05-12 | Outpatient (CLI) | payer MEDICAID ==
--- NOTE | 2017-05-12 14:59 | WOMENS IMAGING REPORT ---
EXAM DESCRIPTION: BILAT SCREENING MAMMO W/CAD COMPLETED DATE/TIME: 05/12/2017 2:18 pm REASON FOR STUDY: ROUTINE SCREENING; Z12.31 Z12.31 ENCNTR SCREEN MAMMOGRAM FOR MALIGNANT NEOPLASM O F WONG COMPARISON: 11/06/2015 and 06/18/2014. TECHNIQUE: Standard craniocaudal and mediolateral oblique views of each breast recorded using digita l acquisition. LIMITATIONS: None. FINDINGS: Findings present which are benign by mammographic criteria. No suspicious masses, calcifi cations or architectural distortion. Pertinent benign findings: Stable circumscribed masses in the right breast. Read with the assistance of CAD. .[facility] - R2 Cenova Version 1.3 .[facility] - R2 Cenova Version 1.3 .[facility] - R2 Cenova Version 2.4 .[facility] Cenova Version 2.4 .[facility] - R2 Field Project Manager Version 9.2 Benign mammographic findings may include one or more of the following: Smooth masses, popcorn/rim/co arse calcifications, asymmetries, post-procedure changes, and lesions with long-standing stability. IMPRESSION: BENIGN MAMMOGRAPHIC FINDINGS. BIRADS 2 BREAST DENSITY: c. The breasts are heterogeneously dense, which may obscure small masses. BIRAD: 2 BENIGN FINDING(S) RECOMMENDATION: ROUTINE SCREENING COMMENT: The patient has been notified of the results by letter per [facility] requirements. Additional no tification policies are in place for contacting patient with suspicious or incomplete findings. Quality ID #[id number]: The [employer] recommends an annual screening mammogram for women aged 40 years or over. This facility utilizes a reminder system to ensure that all patients receive reminder letters, and/or direct phone calls for appointments. This includes reminders for routine scr eening mammograms, diagnostic mammograms, or other Breast Imaging Interventions when appropriate. Th is patient will be placed in the appropriate reminder system. The [employer] (ACR) has developed recommendations for screening MRI of the breast s in certain patient populations, to be used in conjunction with mammography. Breast MRI surveillanc e may be appropriate for women with more than 20% lifetime risk of developing breast cancer as deter mined by genetic testing, significant family history of the disease, or history of mantle radiation f or Hodgkins Disease. ACR Practice Guidelines 2008. TECHNICAL DOCUMENTATION: FINDING NUMBER: (1) ASSESSMENT: (1) JOB ID: [id number] [employer]- All Rights Reserved
== END ==
LOC: WI 13:24
PROVIDERS: ATTEND Family Medicine
DX: Z12.31 Encounter for screening mammogram for malignant neoplasm of breast (principal)
CPT/HCPCS: 77067

== ENCOUNTER 2017-05-13 20:40 | Emergency (ER) | payer MEDICAID ==
[2017-05-13 21:02] VITALS: BP 164/80
--- NOTE | 2017-05-14 07:39 | EKG REPORT ---
SEVERITY:- BORDERLINE ECG - SINUS RHYTHM PROBABLE LEFT ATRIAL ABNORMALITY : Confirmed by: Abigail Mandel MD 14-May-2017 07:38:01
== END 2017-05-14 00:21 | disposition left against medical advice (07) ==
LOC: ER 20:40
DX: Z53.21 Procedure and treatment not carried out due to patient leaving prior to being seen by health care provider (principal); R06.02 Shortness of breath; R07.9 Chest pain, unspecified
CPT/HCPCS: 93005; 93010

== ENCOUNTER 2017-05-14 12:08 | Emergency (ER) | payer MEDICAID ==
--- NOTE | 2017-05-14 12:46 | EKG REPORT ---
SEVERITY:- ABNORMAL ECG - SINUS RHYTHM LEFT VENTRICULAR HYPERTROPHY NONSPECIFIC T ABNORMALITIES, INFERIOR LEADS : Confirmed by: Abigail Mandel MD 14-May-2017 12:46:03
--- NOTE | 2017-05-14 13:06 | ER Document Report ---
ED General - General TRAVEL OUTSIDE OF THE [place] IN LAST 30 DAYS: No <SAMMI PITTMAN - Last Filed: 05/14/17 19:04> <RENU SCHNEIDER - Last Filed: 05/14/17 20:19> - General Chief Complaint: Chest Pain Stated Complaint: SHORTNESS OF BREATH Time Seen by Provider: 05/14/17 12:51 - HPI Notes: Patient is a 51-year-old female with a history of hypertension and stage IV chronic kidney disease who presents to the ED complaining of chest pain over the last several days and feeling short of breath when she lays flat. Patient states that she is ambulatory without any worsening pain or dyspnea on exertion. Patient states that she still eating and drinking without any difficulties. She is urinating normally and having normal bowel movements. Patient states that the chest pain does not radiate and is described as an ache. Patient denies any significant cardiac history. Patient states that she did have a stress test performed last year which was negative and a catheterization which was done a few years ago that was negative. Patient denies any prolonged immobilization, recent trauma/surgery, smoking, hormone replacement, cancer, previous DVT/PE. Patient states that she is a borderline diabetic that is diet controlled. Patient also has a medical history significant for chronic pain. Patient receives OxyContin and oxycodone from pain management. According to our records patient has frequented the ED with similar complaints. Denies any headache, fever, neck pain, URI, sore throat, palpitations, syncope, cough, wheeze, dyspnea, abdominal pain, nausea/vomiting/ diarrhea, urinary retention, dysuria, hematuria, loss of control of bowel or bladder, numbness/tingling, muscle paralysis/weakness, or rash. (SAMMI PITTMAN) - Related Data Allergies/Adverse Reactions: codeine [Codeine] Allergy (Mild, Verified 05/14/17 12:09) Itching ketorolac tromethamine [From Toradol] Allergy (Unknown, Verified 05/14/17 12:09) Anxiety nalbuphine HCl [From Nubain] Allergy (Unknown, Verified 05/14/17 12:09) Anxiety ondansetron HCl [From Zofran] Allergy (Unknown, Verified 05/14/17 12:09) Itching droperidol [Droperidol] Allergy (Verified 05/14/17 12:09) reports heart racing, doesn't like how it makes her feel Past Medical History - Social History Smoking Status: Never Smoker Family History: CAD, CVA, Hypertension - Past Medical History Cardiac Medical History: Reports: Hx Coronary Artery Disease, Hx Hypercholesterolemia, Hx Hypertension Pulmonary Medical History: Reports: Hx Pneumonia, Hx Sleep Apnea Neurological Medical History: Reports: Hx Migraine Endocrine Medical History: Reports: Hx Diabetes Mellitus Type 2 Renal/ Medical History: Reports: Hx End Stage Renal Disease - Stage IV pending dialysis start after fistula placement, Hx Renal Insufficiency. Denies : Hx Peritoneal Dialysis GI Medical History: Reports: Hx Gastroesophageal Reflux Disease, Hx Irritable Bowel Musculoskeltal Medical History: Reports Hx Arthritis, Reports Hx Fibromyalgia, Reports Hx Musculoskeletal Deformity, Reports Hx Musculoskeletal Trauma Psychiatric Medical History: Reports: Hx Depression, Hx Post Traumatic Stress Disorder Past Surgical History: Reports: Hx Appendectomy, Hx Cardiac Catheterization - 3 , last one 3 years ago showing no blockages, Hx Cholecystectomy, Hx Hysterectomy , Hx Orthopedic Surgery - RIGHT ANKLE SURGERY 01/2011, shoulder surgery, Hx Thyroid Surgery, Hx Vascular Surgery - port a cath R upper chest. Denies: Hx Pacemaker - Immunizations Hx Diphtheria, Pertussis, Tetanus Vaccination: No Hx Pneumococcal Vaccination: 04/22/11 <SAMMI PITTMAN - Last Filed: 05/14/17 19:04> Review of Systems <SAMMI PITTMAN - Last Filed: 05/14/17 19:04> <RENU SCHNEIDER - Last Filed: 05/14/17 20:19> - Review of Systems Notes: REVIEW OF SYSTEMS: CONSTITUTIONAL : Denies fever, chills, or sweats. Denies recent illness. EENT: Denies eye, ear, throat, or mouth pain or symptoms. Denies nasal or sinus congestion or discharge. Denies throat, tongue, or mouth swelling or difficulty swallowing. CARDIOVASCULAR: see hpi. Denies palpitations or racing or irregular heart beat. Denies ankle edema. RESPIRATORY: Denies cough, cold, or chest congestion. see hpi. GASTROINTESTINAL: Denies abdominal pain or distention. Denies nausea, vomiting , or diarrhea. Denies blood in vomitus, stools, or per rectum. Denies black, tarry stools. Denies constipation. GENITOURINARY: Denies difficulty urinating, painful urination, burning, frequency, blood in urine, or discharge. MUSCULOSKELETAL: Chronic. Denies acute back or neck pain or stiffness. Denies joint pain or swelling. SKIN: Denies rash, lesions or sores. NEUROLOGICAL: Denies confusion or altered mental status. Denies passing out or loss of consciousness. Denies dizziness or lightheadedness. Denies headache. Denies weakness or paralysis or loss of use of either side. Denies problems with gait or speech. Denies sensory loss, numbness, or tingling. Denies seizures. ALL OTHER SYSTEMS REVIEWED AND NEGATIVE. Dictation was performed using [employer] recognition software (SAMMI PITTMAN) Physical Exam <SAMMI PITTMAN - Last Filed: 05/14/17 19:04> <RENU SCHNEIDER - Last Filed: 05/14/17 20:19> - Vital signs Vitals: Temp Pulse Resp BP Pulse Ox 98.6 F 91 18 144/74 H 96 05/14/17 12:27 05/14/17 12:27 05/14/17 12:27 05/14/17 12:27 05/14/17 12:27 - Notes Notes: PHYSICAL EXAMINATION: GENERAL: Well-appearing, well-nourished and in no acute distress. A&Ox4. Answers questions appropriately. Does not appear in any discomfort. HEAD: Atraumatic, normocephalic. EYES: Pupils equal round and reactive to light, extraocular movements intact, sclera anicteric, conjunctiva are normal. ENT: EAC clear b/l. TM's intact b/l without erythema, fluid, or perforation. Nares patent and without discharge. oropharynx clear without exudates. No tonsilar hypertrophy or erythema. Moist mucous membranes. No sinus tenderness. NECK: Normal range of motion, supple without lymphadenopathy Chest: non-tender. no flail chest. +equal rise/fall. LUNGS: Breath sounds clear to auscultation bilaterally and equal. No wheezes rales or rhonchi. HEART: Regular rate and rhythm without murmurs, rubs, gallops. ABDOMEN: Soft, nontender, nondistended abdomen. No guarding, no rebound. No masses appreciated. Normal bowel sounds present. No CVA tenderness bilaterally. Musculoskeletal: FROM to passive/active. Strength 5+/5. Husesin neg. No calf erythema or swelling. Extremities: Trace pitting edema b/l. Peripheral pulses 2+. Capillary refill less than 3 seconds. NEUROLOGICAL: Normal speech, normal gait. Normal sensory, motor exams PSYCH: Normal mood, normal affect. SKIN: Warm, Dry, normal turgor, no rashes or lesions noted. (SAMMI PITTMAN) Course - Laboratory Result Diagrams: 05/14/17 13:35 05/14/17 13:35 <SAMMI PITTMAN - Last Filed: 05/14/17 19:04> - Laboratory Result Diagrams: 05/14/17 13:35 05/14/17 13:35 - Diagnostic Test Radiology reviewed: Reports reviewed <RENU SCHNEIDER - Last Filed: 05/14/17 20:19> - Re-evaluation Re-evalutation: 05/14/17 15:24 I did speak with Dr. Castorena concerning her Cr of 4.10 and a GFR of 14. 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 Dr. Castorena states that he wanted to make sure she did not need dialysis right away. CXR unremarkable for any fluid build -up and she only has trace pitting edema b/l. Patient has been having a DUKES (which she has often). Benadryl and compazine given along with tylenol. Pt denies any allergy to compazine and I did see that it was given during her last hospital stay for her headache. 05/14/17 17:[address] Cortez: CBC unremarkable for any acute pathology. CMP abnormalities as noted above. Patient shows trace leuks with 10 white blood cells, but is otherwise asymptomatic for urinary symptoms. We will not tx with an antibiotic for UTI at this time due to being asymptomatic. Urine culture is pending. Cardiac enzymes/EKG 1 were unremarkable. 2nd EKG showed possible Pericarditis pattern. An echocardiogram was ordered. Pt cannot take NSAIDs due to her renal function. We will consider steroids pending Echo as well as admission with pericarditis due to significant comorbidities. Pt is agreeable to this plan. Heart score of 3. Wells' score of 0. Prev cardiac cath's x3 unremarkable per patient. Neg stress test last year per patient. 05/14/17 18:43 ESR/CRP still pending. 05/14/17 18:56 Transferred care to [facility]. Reviewed again with Dr. Cortez, we will discharge with steroid taper with unremarkable Echo. Tech gave a preliminary of normal EF, mild IL, otherwise unremarkable exam. (SAMMI PITTMAN) 05/14/17 20:00 Patient continues with normal vital signs in a sinus rhythm. Consulted with Dr. Hernandez guarding patient presentation, reviewed patient's history, diagnostic test results as well as results of echocardiogram. Does not feel patient's presentation is consistent with pericarditis and does not recommend any steroids to go home at discharge. 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 No additional testing advised at this time. Patient is agreeable with this discharge plan of care. Good return precautions given to patient. Patient does report a negative stress test last year with previous cardiac cath that was unremarkable. Patient with a heart score of 3 at this time. Patient with 2 negative troponin tests resulted during this ER visit. The patient has atypical chest pain as the patient's chest pain is not suggestive of pulmonary embolus, cardiac ischemia, aortic dissection, or other serious etiology. Given the extremely low risk of these diagnoses for the test in evaluation for these possibilities does not appear to be indicated at this time. Patient has been instructed to return if the symptoms worsen or change in any way. (RENU SCHNEIDER) - Vital Signs Vital signs: Temp Pulse Resp BP Pulse Ox 98.4 F 91 12 111/73 95 05/14/17 18:00 05/14/17 12:27 05/14/17 18:01 05/14/17 18:01 05/14/17 18:01 - Laboratory Laboratory results interpreted by ok: 05/14/17 05/14/17 05/14/17 13:35 13:35 13:35 WBC 3.9 L Hgb 11.0 L Hct 32.7 L RDW 14.1 H ESR 46 H Carbon Dioxide 33 H BUN 38 H Creatinine 4.10 H Est GFR ( Amer) 14 L Est GFR (Non-Af Amer) 11 L Glucose 142 H Alkaline Phosphatase 133 H Urine Protein Ur Leukocyte Esterase 05/14/17 14:00 WBC Hgb Hct RDW ESR Carbon Dioxide BUN Creatinine Est GFR ( Amer) Est GFR (Non-Af Amer) Glucose Alkaline Phosphatase Urine Protein 100 H Ur Leukocyte Esterase TRACE H 05/14/17 20:18 Labs- Entire Visit 05/14/17 05/14/17 05/14/17 13:35 13:35 13:35 WBC 3.9 L RBC 3.92 Hgb 11.0 L Hct 32.7 L MCV 84 MCH 27.9 MCHC 33.4 RDW 14.1 H Plt Count 161 Seg Neutrophils % 46.6 Lymphocytes % 40.2 Monocytes % 9.4 Eosinophils % 2.9 Basophils % 0.9 Absolute Neutrophils 1.8 Absolute Lymphocytes 1.6 Absolute Monocytes 0.4 Absolute Eosinophils 0.1 Absolute Basophils 0.0 ESR Sodium 143.2 Potassium 3.7 Chloride 103 Carbon Dioxide 33 H Anion Gap 7 BUN 38 H Creatinine 4.10 H Est GFR ( Amer) 14 L Est GFR (Non-Af Amer) 11 L Glucose 142 H Calcium 9.4 Total Bilirubin 0.3 Direct Bilirubin 0.2 Neonat Total Bilirubin Not Reportable Neonat Direct Bilirubin Not Reportable Neonat Indirect Bili Not Reportable AST 17 ALT 17 Alkaline Phosphatase 133 H Creatine Kinase 97 CK-MB (CK-2) 0.47 Troponin I < 0.012 C-Reactive Protein Total Protein 6.9 Albumin 3.5 Urine Color Urine Appearance Urine pH Ur Specific [place] Urine Protein Urine Glucose (UA) Urine Ketones Urine Blood Urine Nitrite Urine Bilirubin Urine Urobilinogen Ur Leukocyte Esterase Urine WBC (Auto) Urine RBC (Auto) Urine Bacteria (Auto) Squamous Epi Cells Auto Urine Mucus (Auto) Urine Ascorbic Acid 05/14/17 05/14/17 05/14/17 13:35 13:35 14:00 WBC RBC Hgb Hct MCV MCH MCHC RDW Plt Count Seg Neutrophils % Lymphocytes % Monocytes % Eosinophils % Basophils % Absolute Neutrophils Absolute Lymphocytes Absolute Monocytes Absolute Eosinophils Absolute Basophils ESR 46 H Sodium Potassium Chloride Carbon Dioxide Anion Gap BUN Creatinine Est GFR ( Amer) Est GFR (Non-Af Amer) Glucose Calcium Total Bilirubin Direct Bilirubin Neonat Total Bilirubin Neonat Direct Bilirubin Neonat Indirect Bili AST ALT Alkaline Phosphatase Creatine Kinase CK-MB (CK-2) Troponin I C-Reactive Protein < 5.0 Total Protein Albumin Urine Color YELLOW Urine Appearance CLEAR Urine pH 5.0 Ur Specific [place] 1.009 Urine Protein 100 H Urine Glucose (UA) NEGATIVE Urine Ketones NEGATIVE Urine Blood NEGATIVE Urine Nitrite NEGATIVE Urine Bilirubin NEGATIVE Urine Urobilinogen NEGATIVE Ur Leukocyte Esterase TRACE H Urine WBC (Auto) 10 Urine RBC (Auto) 1 Urine Bacteria (Auto) TRACE Squamous Epi Cells Auto <1 Urine Mucus (Auto) RARE Urine Ascorbic Acid NEGATIVE 05/14/17 16:33 WBC RBC Hgb Hct MCV MCH MCHC RDW Plt Count Seg Neutrophils % Lymphocytes % Monocytes % Eosinophils % Basophils % Absolute Neutrophils Absolute Lymphocytes Absolute Monocytes Absolute Eosinophils Absolute Basophils ESR Sodium Potassium Chloride Carbon Dioxide Anion Gap BUN Creatinine Est GFR ( Amer) Est GFR (Non-Af Amer) Glucose Calcium Total Bilirubin Direct Bilirubin Neonat Total Bilirubin Neonat Direct Bilirubin Neonat Indirect Bili AST ALT Alkaline Phosphatase Creatine Kinase CK-MB (CK-2) Troponin I < 0.012 C-Reactive Protein Total Protein Albumin Urine Color Urine Appearance Urine pH Ur Specific [place] Urine Protein Urine Glucose (UA) Urine Ketones Urine Blood Urine Nitrite Urine Bilirubin Urine Urobilinogen Ur Leukocyte Esterase Urine WBC (Auto) Urine RBC (Auto) Urine Bacteria (Auto) Squamous Epi Cells Auto Urine Mucus (Auto) Urine Ascorbic Acid (RENU SCHNEIDER) Discharge <SAMMI PITTMAN - Last Filed: 05/14/17 19:04> <RENU SCHNEIDER - Last Filed: 05/14/17 20:19> - Discharge Clinical Impression: CKD (chronic kidney disease) stage 4, GFR 15-29 ml/min, Fibromyalgia Chest pain, unspecified Qualifiers: Chest pain type: unspecified Qualified Code(s): R07.9 - Chest pain, unspecified Condition: Stable Disposition: HOME, SELF-CARE Instructions: Chest Pain of Unclear Cause ([facility]) Additional Instructions: Maintain adequate fluid intake monitor urinary output Low-fat/sodium diet Tylenol if needed Recheck with your PCM in 3-5 days 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 Referrals: JENNI NGUYEN MD [ACTIVE STAFF] - Follow up as needed Adelia CASTORENA MD [ACTIVE STAFF] - Follow up in 3-5 days
[2017-05-14 13:46] LABS: ABSOLUTE EOSINOPHILS # (AUTO) 0.1 10^3/uL (0.0-0.6); ABSOLUTE LYMPHOCYTES (AUTO) 1.6 10^3/uL (0.5-4.7); ABSOLUTE MONOCYTES (AUTO) 0.4 10^3/uL (0.1-1.4); ABSOLUTE NEUT (AUTO) 1.8 10^3/uL (1.7-8.2); BASOPHILS % (AUTO) 0.9 % (0-2); EOSINOPHILS % (AUTO) 2.9 % (0-6); HEMATOCRIT 32.7 % (36.0-47.0); LYMPHOCYTES % (AUTO) 40.2 % (13-45); MEAN CORPUSCULAR HEMOGLOBIN 27.9 pg (27.0-33.4); MEAN CORPUSCULAR HGB CONC 33.4 g/dL (32.0-36.0); MEAN CORPUSCULAR VOLUME 84 fl (80-97); MONOCYTES % (AUTO) 9.4 % (3-13); PLATELET COUNT 161 10^3/uL (150-450); RED BLOOD COUNT 3.92 10^6/uL (3.72-5.28); RED CELL DISTRIBUTION WIDTH 14.1 % (11.5-14.0); SEGMENTED NEUTROPHILS % (AUTO) 46.6 % (42-78); TOTAL CELLS COUNTED % (AUTO) 100 %; WHITE BLOOD COUNT 3.9 10^3/uL (4.0-10.5)
[2017-05-14] MEDS ORDERED: ACETAMINOPHEN 325 MG TABLET PO ONE (14:06)
[2017-05-14 14:10] LABS: ALANINE AMINOTRANSFERASE 17 U/L (9-52); ALBUMIN 3.5 g/dL (3.5-5.0); ALKALINE PHOSPHATASE 133 U/L (38-126); ANION GAP 7 (5-19); ASPARTATE AMINO TRANSFERASE 17 U/L (14-36); BILIRUBIN,DIRECT 0.2 mg/dL (0.0-0.4); BILIRUBIN,TOTAL 0.3 mg/dL (0.2-1.3); BLOOD UREA NITROGEN 38 mg/dL (7-20); CALCIUM 9.4 mg/dL (8.4-10.2); CARBON DIOXIDE 33 mmol/L (22-30); CHLORIDE 103 mmol/L (98-107); CREATINE KINASE 97 U/L (30-135); GLUCOSE 142 mg/dL (75-110); POTASSIUM 3.7 mmol/L (3.6-5.0); SODIUM 143.2 mmol/L (137-145); TOTAL PROTEIN 6.9 g/dL (6.3-8.2)
[2017-05-14 14:16] LABS: APPEARANCE,URINE CLEAR; BILIRUBIN,URINE NEGATIVE (NEGATIVE); COLOR,URINE YELLOW; GLUCOSE, URINE NEGATIVE (NEGATIVE); KETONES,URINE NEGATIVE (NEGATIVE); LEUKOCYTE ESTERASE,URINE TRACE (NEGATIVE); NITRITE,URINE NEGATIVE (NEGATIVE); PROTEIN,URINE 100 mg/dL (NEGATIVE); URINE SPECIFIC GRAVITY 1.009; UROBILINOGEN,URINE NEGATIVE mg/dL (<2.0)
[2017-05-14 14:22] LABS: CREATINE KINASE MB 0.47 ng/mL (<4.55); TROPONIN I < 0.012 ng/mL
--- NOTE | 2017-05-14 14:29 | RADIOLOGY REPORT (SQ) ---
EXAM DESCRIPTION: CHEST SINGLE VIEW COMPLETED DATE/TIME: 05/14/2017 2:16 pm REASON FOR STUDY: chest pain, sob COMPARISON: 04/14/2017 EXAM PARAMETERS: NUMBER OF VIEWS: One view. TECHNIQUE: Single frontal radiographic view of the chest acquired. RADIATION DOSE: NA LIMITATIONS: None. FINDINGS: LUNGS AND PLEURA: No opacities, masses or pneumothorax. No pleural effusion. MEDIASTINUM AND HILAR STRUCTURES: No masses. Contour normal. HEART AND VASCULAR STRUCTURES: Heart normal in size. Normal vasculature. BONES: No acute findings. HARDWARE: Status post left shoulder replacement. Right subclavian Port-A-Cath. OTHER: No other significant finding. IMPRESSION: NO ACUTE RADIOGRAPHIC FINDING IN THE CHEST. TECHNICAL DOCUMENTATION: JOB ID: [id number] [employer]- All Rights Reserved
[2017-05-14] MEDS ORDERED: DIPHENHYDRAMINE HCL 50 MG CAPSULE PO ONE (15:15)
[2017-05-14] MEDS ORDERED: PROCHLORPERAZINE EDISYLATE INJ 10 MG/2 ML VIAL IV ONE (15:15)
[2017-05-14] MEDS ORDERED: METHYLPREDNISOLONE INJ 125 MG/2 ML SDV IV ONE (18:30)
--- NOTE | 2017-05-14 19:23 | XCELERA REPORT ---
[address] [address] Transthoracic Echocardiogram Report Name: DAREN ROSS Age: 51 yrs Gender: Female : 1965 Patient Status: Emergency Patient Location: ER Study Date: 05/14/2017 06:28 PM Height: 62 in Weight: 228 lb BSA: 2.0 m2 Procedure: A complete two-dimensional transthoracic echocardiogram was performed (2D, M-mode, spectral and color flow Doppler). The study was technically difficult with many images being suboptimal in quality. Reason For Study: possible pericarditis, CP/SOB Ordering Physician: SAMMI PITTMAN PA-C Performed By: Rachel Ramirez Interpretation Summary The left ventricular ejection fraction is normal. There is borderline concentric left ventricular hypertrophy. The left ventricle is grossly normal size. Doppler measurements suggest pseudonormalized left ventricular relaxation, which is associated with grade II/IV or mild to moderate diastolic dysfunction Wall motion cannot be accurately commented on, but no definite regional wall motion abnormalities noted. Borderline right ventricular enlargement. The right atrium is normal in size The left atrial size is normal. There is a trace amount of mitral regurgitation There is no mitral valve stenosis. There is no aortic valve stenosis No aortic regurgitation is present. There is a trace or physiologic amount of tricuspid regurgitation Tricuspid regurgitation jet envelope not well defined to measure RV systolic pressure accurately. The aortic root is not well visualized. The inferior vena cava was not well visualized Minimal pericardial effusion. MMode/2D Measurements & Calculations RVDd: 2.8 cm LVIDd: 3.6 cm FS: 32.2 % Ao root diam: 3.0 cm IVSd: 0.96 cm LVIDs: 2.4 cm EDV(Teich): 54.2 ml LVPWd: 1.0 cm ESV(Teich): 20.9 ml Ao root area: 6.9 cm2 EF(Teich): 61.4 % LA dimension: 3.5 cm LVOT diam: 2.0 cm LVOT area: 3.2 cm2 Doppler Measurements & Calculations MV E max ankita: MV P1/2t max ankita: Ao V2 max: LV V1 max P.4 cm/sec 53.1 cm/sec 132.1 cm/sec 3.0 mmHg MV A max ankita: MV P1/2t: 54.9 msec Ao max PG: LV V1 max: 43.2 cm/sec MVA(P1/2t): 4.0 cm2 7.0 mmHg 86.7 cm/sec MV E/A: 1.2 MV dec slope: NOELLE(V,D): 2.1 cm2 283.1 cm/sec2 PA V2 max: PI end-d ankita: TR max ankita: 92.3 cm/sec 118.3 cm/sec 236.6 cm/sec PA max PG: TR max P.4 mmHg 22.4 mmHg Left Ventricle The left ventricle is grossly normal size. There is borderline concentric left ventricular hypertrophy. The left ventricular ejection fraction is normal. Doppler measurements suggest pseudonormalized left ventricular relaxation, which is associated with grade II/IV or mild to moderate diastolic dysfunction. Wall motion cannot be accurately commented on, but no definite regional wall motion abnormalities noted. Right Ventricle Borderline right ventricular enlargement. There is normal right ventricular wall thickness. The right ventricular systolic function is normal. Atria The right atrium is normal in size. The left atrial size is normal. Interarterial septum not well visualized and not well dopplered. Cannot comment on ASD/PFO presence. Mitral Valve The mitral valve is grossly normal. There is no mitral valve stenosis. There is a trace amount of mitral regurgitation. Aortic Valve The aortic valve is grossly normal. There is no aortic valve stenosis. No aortic regurgitation is present. Tricuspid Valve The tricuspid valve is not well visualized secondary to technical limitations. There is no tricuspid stenosis. There is a trace or physiologic amount of tricuspid regurgitation. Tricuspid regurgitation jet envelope not well defined to measure RV systolic pressure accurately. Pulmonic Valve The pulmonic valve is not well visualized. Great Vessels The aortic root is not well visualized. The inferior vena cava was not well visualized. Effusions Minimal pericardial effusion. : SAMMI PITTMAN PA-C > Darwin Curiel
[2017-05-14 20:28] VITALS: BP 118/75
--- NOTE | 2017-05-16 11:54 | EKG REPORT ---
SEVERITY:- ABNORMAL ECG - SINUS RHYTHM LEFT VENTRICULAR HYPERTROPHY BORDERLINE T ABNORMALITIES, INFERIOR LEADS ST ELEVATION SUGGESTS PERICARDITIS : Confirmed by: Abigail Mandel MD 16-May-2017 11:53:28
== END 2017-05-14 20:45 | disposition home or self-care (01) ==
LOC: ER 12:08
DX: R51 Headache (principal); E11.22 Type 2 diabetes mellitus with diabetic chronic kidney disease; I12.9 Hypertensive chronic kidney disease with stage 1 through stage 4 chronic kidney disease, or unspecified chronic kidney disease; N18.4 Chronic kidney disease, stage 4 (severe); R07.9 Chest pain, unspecified; R06.02 Shortness of breath; I25.10 Atherosclerotic heart disease of native coronary artery without angina pectoris; E78.00 Pure hypercholesterolemia, unspecified; Z88.6 Allergy status to analgesic agent; Z99.2 Dependence on renal dialysis; Z90.49 Acquired absence of other specified parts of digestive tract; Z90.710 Acquired absence of both cervix and uterus
CPT/HCPCS: 93005; 36591; 99285; 96374; 96375; 36415; 87086; 82553; 82550; 85025; 85652; 86140; 87088; 80053; 81001; 84484; 93306; 71045; 93010; J3490 ×2; J2930; J0780

== ENCOUNTER → 2017-05-17 | Outpatient (CLI) | payer MEDICAID ==
[2017-05-17 10:47] LABS: HEMATOCRIT 35.9 % (36.0-47.0); HEMOGLOBIN 12.1 g/dL (12.0-15.5); MEAN CORPUSCULAR HGB CONC 33.7 g/dL (32.0-36.0); MEAN CORPUSCULAR VOLUME 83 fl (80-97); PLATELET COUNT 184 10^3/uL (150-450); RED BLOOD COUNT 4.32 10^6/uL (3.72-5.28); RED CELL DISTRIBUTION WIDTH 14.4 % (11.5-14.0); WHITE BLOOD COUNT 4.4 10^3/uL (4.0-10.5)
[2017-05-17 10:48] LABS: APPEARANCE,URINE CLEAR; BILIRUBIN,URINE NEGATIVE (NEGATIVE); COLOR,URINE STRAW; GLUCOSE, URINE NEGATIVE (NEGATIVE); KETONES,URINE NEGATIVE (NEGATIVE); LEUKOCYTE ESTERASE,URINE NEGATIVE (NEGATIVE); NITRITE,URINE NEGATIVE (NEGATIVE); PROTEIN,URINE 100 mg/dL (NEGATIVE); URINE SPECIFIC GRAVITY 1.006; UROBILINOGEN,URINE NEGATIVE mg/dL (<2.0)
[2017-05-17 11:09] LABS: ALANINE AMINOTRANSFERASE 19 U/L (9-52); ALBUMIN 3.8 g/dL (3.5-5.0); ALKALINE PHOSPHATASE 137 U/L (38-126); ANION GAP 11 (5-19); ASPARTATE AMINO TRANSFERASE 17 U/L (14-36); BILIRUBIN,DIRECT 0.2 mg/dL (0.0-0.4); BILIRUBIN,TOTAL 0.2 mg/dL (0.2-1.3); BLOOD UREA NITROGEN 41 mg/dL (7-20); CALCIUM 9.6 mg/dL (8.4-10.2); CARBON DIOXIDE 31 mmol/L (22-30); CHLORIDE 99 mmol/L (98-107); GLUCOSE 117 mg/dL (75-110); POTASSIUM 4.1 mmol/L (3.6-5.0); SODIUM 141.4 mmol/L (137-145); TOTAL PROTEIN 7.3 g/dL (6.3-8.2)
[2017-05-17 11:12] LABS: UR PRO/CREAT RATIO RESULT 2.7 mg/mg (0.0-0.2); URINE CREATININE 49.8 mg/dL (15-278); URINE PROTEIN 136.2 mg/dL (<12)
== END ==
LOC: OD 08:52
PROVIDERS: ATTEND Internal Medicine Nephrology
DX: I12.9 Hypertensive chronic kidney disease with stage 1 through stage 4 chronic kidney disease, or unspecified chronic kidney disease (principal); N18.4 Chronic kidney disease, stage 4 (severe); I50.9 Heart failure, unspecified; R80.9 Proteinuria, unspecified
CPT/HCPCS: 36415; 80053; 81001; 82570; 83735; 83970; 84100; 84156; 85027

== ENCOUNTER → 2017-06-02 | Outpatient (CLI) | payer MEDICAID ==
[2017-06-02 16:23] LABS: HEMATOCRIT 36.4 % (36.0-47.0); HEMOGLOBIN 12.1 g/dL (12.0-15.5); MEAN CORPUSCULAR HEMOGLOBIN 27.9 pg (27.0-33.4); MEAN CORPUSCULAR HGB CONC 33.2 g/dL (32.0-36.0); MEAN CORPUSCULAR VOLUME 84 fl (80-97); PLATELET COUNT 130 10^3/uL (150-450); RED BLOOD COUNT 4.34 10^6/uL (3.72-5.28); RED CELL DISTRIBUTION WIDTH 14.3 % (11.5-14.0); WHITE BLOOD COUNT 3.9 10^3/uL (4.0-10.5)
[2017-06-02 16:35] LABS: ANION GAP 10 (5-19); BLOOD UREA NITROGEN 34 mg/dL (7-20); CALCIUM 9.8 mg/dL (8.4-10.2); CARBON DIOXIDE 31 mmol/L (22-30); CHLORIDE 102 mmol/L (98-107); GLUCOSE 153 mg/dL (75-110); MAGNESIUM 2.1 mg/dL (1.6-2.3); PHOSPHORUS 3.9 mg/dL (2.5-4.5); POTASSIUM 4.1 mmol/L (3.6-5.0); SODIUM 142.9 mmol/L (137-145)
== END ==
LOC: OD 15:30
PROVIDERS: ATTEND Internal Medicine Nephrology
DX: I12.9 Hypertensive chronic kidney disease with stage 1 through stage 4 chronic kidney disease, or unspecified chronic kidney disease (principal); N18.4 Chronic kidney disease, stage 4 (severe); I50.9 Heart failure, unspecified; D64.9 Anemia, unspecified
CPT/HCPCS: 36415; 80048; 83735; 83970; 84100; 85027

== ENCOUNTER → 2017-07-02 | Outpatient (CLI) | payer MEDICAID ==
[2017-07-02 17:47] LABS: ANION GAP 10 (5-19); BLOOD UREA NITROGEN 38 mg/dL (7-20); CARBON DIOXIDE 26 mmol/L (22-30); CHLORIDE 104 mmol/L (98-107); GLUCOSE 142 mg/dL (75-110); PHOSPHORUS 4.6 mg/dL (2.5-4.5); SODIUM 140.1 mmol/L (137-145)
[2017-07-02 17:51] LABS: URINE CREATININE 247.2 mg/dL (15-278)
[2017-07-02 17:59] LABS: APPEARANCE,URINE SLIGHTLY-CLOUDY; BILIRUBIN,URINE NEGATIVE (NEGATIVE); COLOR,URINE YELLOW; GLUCOSE, URINE NEGATIVE (NEGATIVE); HEMATOCRIT 32.4 % (36.0-47.0); HEMOGLOBIN 10.6 g/dL (12.0-15.5); KETONES,URINE NEGATIVE (NEGATIVE); LEUKOCYTE ESTERASE,URINE MODERATE (NEGATIVE); MEAN CORPUSCULAR HEMOGLOBIN 28.1 pg (27.0-33.4); MEAN CORPUSCULAR HGB CONC 32.9 g/dL (32.0-36.0); MEAN CORPUSCULAR VOLUME 86 fl (80-97); NITRITE,URINE NEGATIVE (NEGATIVE); PLATELET COUNT 102 10^3/uL (150-450); PROTEIN,URINE >=500 mg/dL (NEGATIVE); RED BLOOD COUNT 3.79 10^6/uL (3.72-5.28); RED CELL DISTRIBUTION WIDTH 14.9 % (11.5-14.0); UR PRO/CREAT RATIO RESULT 1.3 mg/mg (0.0-0.2); URINE PROTEIN 333.2 mg/dL (<12); URINE SPECIFIC GRAVITY 1.015; UROBILINOGEN,URINE NEGATIVE mg/dL (<2.0); WHITE BLOOD COUNT 7.4 10^3/uL (4.0-10.5)
== END ==
LOC: OD 16:12
PROVIDERS: ATTEND Internal Medicine Nephrology
DX: I12.0 Hypertensive chronic kidney disease with stage 5 chronic kidney disease or end stage renal disease (principal); N18.5 Chronic kidney disease, stage 5; R80.9 Proteinuria, unspecified; N25.0 Renal osteodystrophy
CPT/HCPCS: 36415; 80048; 81001; 82570; 83970; 84100; 84156; 85027

== ENCOUNTER 2017-07-09 16:24 | Emergency (ER) | payer MEDICAID ==
[2017-07-09] MEDS ORDERED: HYDROMORPHONE HCL INJ/PF 2 MG/ML AMPULE IV ONE ×3 (16:46→20:08)
--- NOTE | 2017-07-09 16:48 | ER Document Report ---
ED Extremity Problem, Lower - General Mode of Arrival: Medic Information source: Patient TRAVEL OUTSIDE OF THE [place] IN LAST 30 DAYS: No <YONY DE LA GARZA - Last Filed: 07/09/17 20:18> <ZACK GUTIÉRREZ - Last Filed: 07/09/17 20:42> - General Stated Complaint: ANKLE PAIN Time Seen by Provider: 07/09/17 16:37 Notes: 51-year-old female missed 3 steps and fell injuring her ankles. The left one she thinks is broken and deformed. The right one has had previous surgery. Food was soup at 1200 and despite at 1200. She had shoulder surgery December 2016 Dr. Sharp in [place] the rotator cuff and was intubated at that time no comp occasions with intubation. (YONY DE LA GARZA) - Related Data Allergies/Adverse Reactions: codeine [Codeine] Allergy (Mild, Verified 05/14/17 12:09) Itching ketorolac tromethamine [From Toradol] Allergy (Unknown, Verified 05/14/17 12:09) Anxiety nalbuphine HCl [From Nubain] Allergy (Unknown, Verified 05/14/17 12:09) Anxiety ondansetron HCl [From Zofran] Allergy (Unknown, Verified 05/14/17 12:09) Itching droperidol [Droperidol] Allergy (Verified 05/14/17 12:09) reports heart racing, doesn't like how it makes her feel Past Medical History - General Information source: Patient - Social History Smoking Status: Unknown if Ever Smoked Frequency of alcohol use: None Drug Abuse: None Lives with: Family Family History: CAD, CVA, Hypertension - Past Medical History Cardiac Medical History: Reports: Hx Coronary Artery Disease, Hx Hypercholesterolemia, Hx Hypertension Pulmonary Medical History: Reports: Hx Pneumonia, Hx Sleep Apnea Neurological Medical History: Reports: Hx Migraine Endocrine Medical History: Reports: Hx Diabetes Mellitus Type 2 Renal/ Medical History: Reports: Hx End Stage Renal Disease - Stage IV pending dialysis start after fistula placement, Hx Renal Insufficiency. Denies : Hx Peritoneal Dialysis GI Medical History: Reports: Hx Gastroesophageal Reflux Disease, Hx Irritable Bowel Musculoskeltal Medical History: Reports Hx Arthritis, Reports Hx Fibromyalgia, Reports Hx Musculoskeletal Deformity, Reports Hx Musculoskeletal Trauma Psychiatric Medical History: Reports: Hx Depression, Hx Post Traumatic Stress Disorder Past Surgical History: Reports: Hx Appendectomy, Hx Cardiac Catheterization - 3 , last one 3 years ago showing no blockages, Hx Cholecystectomy, Hx Hysterectomy , Hx Orthopedic Surgery - RIGHT ANKLE SURGERY 01/2011, shoulder surgery 12/2106, Hx Thyroid Surgery, Hx Vascular Surgery - port a cath R upper chest. Denies: Hx Pacemaker - Immunizations Hx Diphtheria, Pertussis, Tetanus Vaccination: No Hx Pneumococcal Vaccination: 04/22/11 <YONY DE LA GARZA - Last Filed: 07/09/17 20:18> Review of Systems - Review of Systems Constitutional: No symptoms reported EENT: No symptoms reported Cardiovascular: No symptoms reported Respiratory: No symptoms reported Gastrointestinal: No symptoms reported Genitourinary: No symptoms reported Female Genitourinary: No symptoms reported Musculoskeletal: See HPI Skin: No symptoms reported Hematologic/Lymphatic: No symptoms reported Neurological/Psychological: No symptoms reported <YONY D ELA GARZA - Last Filed: 07/09/17 20:18> Physical Exam - Vital signs Interpretation: Normal - General General appearance: Appears well, Alert - HEENT Head: Normocephalic, Atraumatic Eyes: Normal Pupils: PERRL Pharynx: Normal, Other - airway class 4 Neck: Supple - Respiratory Respiratory status: No respiratory distress Chest status: Nontender Breath sounds: Normal Chest palpation: Normal - Cardiovascular Rhythm: Regular Heart sounds: Normal auscultation Murmur: No - Abdominal Inspection: Normal Distension: No distension Bowel sounds: Normal Tenderness: Nontender Organomegaly: No organomegaly - Back Back: Normal, Nontender - Extremities General upper extremity: Normal inspection, Nontender, Normal color, Normal ROM , Normal temperature General lower extremity: Normal inspection, Nontender, Normal color, Normal ROM , Normal temperature, Normal weight bearing. No: Hussein's sign Ankle: Deformity - left ankle, 2+ DP, swelling, tender. Fx/dislocation on xRAY closed BIMALLEOLAR tibiotalar dislocation PER RADIOLOGIST, right ankle negative xray although swelling and tender laterally. - Neurological Neuro grossly intact: Yes Cognition: Normal Orientation: AAOx4 [place] Coma Scale Eye Opening: Spontaneous [place] Coma Scale Verbal: Oriented [place] Coma Scale Motor: Obeys Commands [place] Coma Scale Total: 15 Speech: Normal Motor strength normal: LUE, RUE, LLE, RLE Sensory: Normal - Psychological Associated symptoms: Normal affect, Normal mood - Skin Skin Temperature: Warm Skin Moisture: Dry Skin Color: Normal <YONY DE LA GARZA - Last Filed: 07/09/17 20:18> <ZACK GUTIÉRREZ - Last Filed: 07/09/17 20:42> - Vital signs Vitals: Resp 19 07/09/17 16:43 - General Notes: obese weight [address] thakkar office. (YONY DE LA GARZA) Course - Laboratory Result Diagrams: 07/09/17 19:15 07/09/17 19:15 <YONY DE LA GARZA - Last Filed: 07/09/17 20:18> - Laboratory Result Diagrams: 07/09/17 19:15 07/09/17 19:15 <ZACK GUTIÉRREZ - Last Filed: 07/09/17 20:42> - Re-evaluation Re-evalutation: 07/09/17 17:39 dr gutiérrez did informed consent with the pt, she signed for propofol, reduction, and splint. Labs ordered for ortho who I will be calling. Pt wants to be admitted. 07/09/17 19:21 dr Meneses passed through the ER earlier and looked at the x-ray of Cathy Vazquez and he stated that we can reduce it in the emergency room splint it, he will see her in the office on Wednesday. 07/09/17 20:18 vitals stable, awake, more pain tx with dilaudid, 2 percocet, reglan 10mg and benadryl 12.5 IV. (YONY DE LA GARZA) - Vital Signs Vital signs: Temp Pulse Resp BP Pulse Ox 16 172/96 H 100 07/09/17 20:16 07/09/17 20:16 07/09/17 20:16 - Laboratory Laboratory results interpreted by me: 07/09/17 07/09/17 07/09/17 19:15 19:15 19:15 Hgb 11.7 L Hct 35.6 L RDW 15.1 H APTT 59.2 H BUN 32 H Creatinine 4.06 H Est GFR ( Amer) 14 L Est GFR (Non-Af Amer) 12 L Alkaline Phosphatase 130 H Procedures - Immobilization Right Ankle Time completed: 20:16 Pre-Proc Neuro Vasc Exam: Normal Immobilizer type: Ken wrap Performed by: PCT Post-Proc Neuro Vasc Exam: Normal Alignment checked and good: Yes <YONY DE LA GARZA - Last Filed: 07/09/17 20:18> - Conscious Sedation Conscious sedation Time started: 19:46 Time completed: 20:08 Consent obtained: Yes Indication: Left ankle fracture dislocation Last meal: Breakfast Pt with a severe systemic disease.: P3. - ASA Classification. Airway Evaluation: Large tongue, Obese Mallampati Classification: Class 4 Used during procedure: Suction available, IV access obtained, Pulse ox on pt., environmental monitoring specialist on pt. Medications administered: Diprivan Reversal agents: None I personally performed/intraservice time: Sedation, Procedure, 30 min or less Complications: No - Immobilization Right Ankle Immobilizer type: Other - Stirrup and short leg posterior. Performed by: Provider, Provider assisted Post-Proc Neuro Vasc Exam: Unchanged from pre-exam - Joint Reduction/Fracture Care Left Ankle Time completed: 20:08 Consent obtained: Yes Conscious sedation: Yes Pre-procedure NV exam: Yes Fracture: Closed Manipulation comment: Reduced without difficulty. Post-procedure NV exam: Yes Post-reduction x-ray: Joint reduced - Joint and fracture reduced. Reduction attempts: 1 Complications: No <ZACK GUTIÉRREZ - Last Filed: 07/09/17 20:42> - Immobilization Right Ankle Notes: 07/09/17 20:16 similarly the posterior ankle and stirrup splint place with ken wrap, alignment good. The post reduction film has good alignment. (YONY DE LA GARZA) Discharge <YONY DE LA GARZA - Last Filed: 07/09/17 20:18> <ZACK GUTIÉRREZ - Last Filed: 07/09/17 20:42> - Discharge Clinical Impression: left ankle fx dislocation reduction Right ankle sprain Qualifiers: Encounter type: initial encounter Involved ligament of ankle: unspecified ligament Qualified Code(s): S93.401A - Sprain of unspecified ligament of right ankle, initial encounter Trimalleolar fracture of left ankle Qualifiers: Encounter type: initial encounter Fracture type: closed Qualified Code(s): S82.852A - Displaced trimalleolar fracture of left lower leg, initial encounter for closed fracture Condition: Good Disposition: HOME, SELF-CARE Instructions: Ken Wrap ([facility]), Fractured Ankle (Bimalleolar) ([facility]), Ice & Elevation ([facility]), Oral Narcotic Medication ([facility]), Splint Precautions ([facility]) Additional Instructions: use walker! see dr. meneses in his office on wednesday, call starting at 8 am for appointment pain medication as needed to er any concerns this weekend Prescriptions: Oxycodone HCl/Acetaminophen [Percocet 10-325 Mg Tablet] 1 each PO Q4HP PRN #30 tablet PRN Reason: Walker [Folding Walker] 1 each MC ASDIR PRN #1 each PRN Reason: Referrals: CARLOS WICK MD [ACTIVE STAFF] - 07/12/17 (call first thing wednesday to ensure that you are seen on wednesday)
[2017-07-09] MEDS ORDERED: PROPOFOL INJ 200 MG/20 ML VIAL IV ONE (17:21)
--- NOTE | 2017-07-09 17:25 | RADIOLOGY REPORT (SQ) ---
EXAM DESCRIPTION: ANKLE BILATERAL 3 VIEWS MIN COMPLETED DATE/TIME: 07/09/2017 5:15 pm REASON FOR STUDY: fell down 3 steps COMPARISON: None. NUMBER OF VIEWS: Three views. TECHNIQUE: AP, lateral, and oblique radiographic images acquired of the right and left ankle. LIMITATIONS: None. FINDINGS: MINERALIZATION: Normal. BONES: There is an oblique fracture of the left distal fibula, transverse fracture of the medial mall eolus, and subluxation of the tibiotalar joint. The right ankle is unremarkable. JOINTS: See above SOFT TISSUES: No soft tissue swelling. No foreign body. OTHER: No other significant finding. IMPRESSION: Bimalleolar fracture of the left ankle with tibiotalar subluxation. TECHNICAL DOCUMENTATION: JOB ID: [id number] [employer]- All Rights Reserved Reading location - IP/workstation name: [email or web address]
[2017-07-09] MEDS ORDERED: HYDROMORPHONE HCL INJ/PF 2 MG/ML AMPULE ONE (19:22)
[2017-07-09 19:34] LABS: ABSOLUTE LYMPHOCYTES (AUTO) 1.4 10^3/uL (0.5-4.7); ABSOLUTE MONOCYTES (AUTO) 0.6 10^3/uL (0.1-1.4); BASOPHILS % (AUTO) 0.3 % (0-2); EOSINOPHILS % (AUTO) 0.2 % (0-6); HEMATOCRIT 35.6 % (36.0-47.0); HEMOGLOBIN 11.7 g/dL (12.0-15.5); LYMPHOCYTES % (AUTO) 19.7 % (13-45); MEAN CORPUSCULAR HEMOGLOBIN 28.5 pg (27.0-33.4); MEAN CORPUSCULAR HGB CONC 32.9 g/dL (32.0-36.0); MEAN CORPUSCULAR VOLUME 86 fl (80-97); MONOCYTES % (AUTO) 8.7 % (3-13); PLATELET COUNT 218 10^3/uL (150-450); RED BLOOD COUNT 4.12 10^6/uL (3.72-5.28); RED CELL DISTRIBUTION WIDTH 15.1 % (11.5-14.0); SEGMENTED NEUTROPHILS % (AUTO) 71.1 % (42-78); TOTAL CELLS COUNTED % (AUTO) 100 %; WHITE BLOOD COUNT 7.1 10^3/uL (4.0-10.5)
[2017-07-09 19:42] LABS: INTERNATIONAL RATION (INR) 0.92
[2017-07-09 19:44] LABS: PARTIAL THROMBOPLASTIN TIME 59.2 SEC (23.5-35.8)
[2017-07-09] MEDS ORDERED: OXYCODONE-ACETAMINOPHEN 5-325 MG TABLET PO ONE (20:08)
[2017-07-09] MEDS ORDERED: METOCLOPRAMIDE HCL INJ/PF 10 MG/2 ML SDV IV ONE (20:09)
[2017-07-09 20:10] LABS: ALANINE AMINOTRANSFERASE 24 U/L (9-52); ALBUMIN 3.7 g/dL (3.5-5.0); ALKALINE PHOSPHATASE 130 U/L (38-126); ANION GAP 10 (5-19); ASPARTATE AMINO TRANSFERASE 19 U/L (14-36); BILIRUBIN,DIRECT 0.3 mg/dL (0.0-0.4); BILIRUBIN,TOTAL 0.3 mg/dL (0.2-1.3); BLOOD UREA NITROGEN 32 mg/dL (7-20); CALCIUM 9.5 mg/dL (8.4-10.2); CARBON DIOXIDE 29 mmol/L (22-30); CHLORIDE 106 mmol/L (98-107); GLUCOSE 108 mg/dL (75-110); POTASSIUM 3.8 mmol/L (3.6-5.0); SODIUM 144.6 mmol/L (137-145); TOTAL PROTEIN 7.8 g/dL (6.3-8.2)
[2017-07-09] MEDS ORDERED: DIPHENHYDRAMINE HCL 50 MG/ML VIAL IV ONE (20:19)
--- NOTE | 2017-07-09 20:29 | RADIOLOGY REPORT (SQ) ---
EXAM DESCRIPTION: ANKLE LEFT AP/LATERAL COMPLETED DATE/TIME: 07/09/2017 8:10 pm REASON FOR STUDY: post reduction COMPARISON: 07/09/2017 NUMBER OF VIEWS: Two views. TECHNIQUE: AP and lateral radiographic images acquired of the left ankle. LIMITATIONS: None. FINDINGS: MINERALIZATION: Normal. BONES: Improved alignment trimalleolar ankle fracture. No new osseous abnormality. JOINTS: Improved alignment. SOFT TISSUES: Persistent soft tissue swelling. OTHER: No other significant finding. IMPRESSION: IMPROVED ALIGNMENT TRIMALLEOLAR ANKLE FRACTURE STATUS POST REDUCTION AND SPLINTING. TECHNICAL DOCUMENTATION: JOB ID: [id number] [employer]- All Rights Reserved Reading location - IP/workstation name: [email or web address]
[2017-07-09 21:29] VITALS: BP 169/95
== END 2017-07-09 21:35 | disposition home or self-care (01) ==
LOC: ER 16:24
PROC: 0QSHXZZ Reposition Left Tibia, External Approach (ICD-10-PCS; principal; 2017-07-09)
PROC: 2W3QX1Z Immobilization of Right Lower Leg using Splint (ICD-10-PCS; 2017-07-09)
DX: S82.852A Displaced trimalleolar fracture of left lower leg, initial encounter for closed fracture (principal); S93.401A Sprain of unspecified ligament of right ankle, initial encounter; M25.571 Pain in right ankle and joints of right foot; M25.572 Pain in left ankle and joints of left foot; W19.XXXA Unspecified fall, initial encounter; Z98.890 Other specified postprocedural states; I25.10 Atherosclerotic heart disease of native coronary artery without angina pectoris; I10 Essential (primary) hypertension; E11.9 Type 2 diabetes mellitus without complications
CPT/HCPCS: 96376; 99284; 99152; 96374; 96375; 36415; 85025; 85610; 85730; 80053; 73600; 73610; 27818; 29515; J1200; J2765; J1170; J2704

== ENCOUNTER 2017-07-15 12:05 | Observation (INO) | payer MEDICAID ==
[2017-07-13 12:23] LABS: APPEARANCE,URINE SLIGHTLY-CLOUDY; BILIRUBIN,URINE NEGATIVE (NEGATIVE); COLOR,URINE YELLOW; GLUCOSE, URINE NEGATIVE (NEGATIVE); KETONES,URINE NEGATIVE (NEGATIVE); LEUKOCYTE ESTERASE,URINE MODERATE (NEGATIVE); NITRITE,URINE NEGATIVE (NEGATIVE); PROTEIN,URINE 100 mg/dL (NEGATIVE); URINE SPECIFIC GRAVITY 1.017; UROBILINOGEN,URINE NEGATIVE mg/dL (<2.0)
[2017-07-13 12:51] LABS: ABSOLUTE EOSINOPHILS # (AUTO) 0.1 10^3/uL (0.0-0.6); ABSOLUTE LYMPHOCYTES (AUTO) 1.6 10^3/uL (0.5-4.7); ABSOLUTE MONOCYTES (AUTO) 0.4 10^3/uL (0.1-1.4); ABSOLUTE NEUT (AUTO) 2.3 10^3/uL (1.7-8.2); BASOPHILS % (AUTO) 0.5 % (0-2); EOSINOPHILS % (AUTO) 2.8 % (0-6); HEMATOCRIT 32.5 % (36.0-47.0); HEMOGLOBIN 10.8 g/dL (12.0-15.5); LYMPHOCYTES % (AUTO) 35.5 % (13-45); MEAN CORPUSCULAR HEMOGLOBIN 28.7 pg (27.0-33.4); MEAN CORPUSCULAR VOLUME 87 fl (80-97); MONOCYTES % (AUTO) 8.5 % (3-13); PLATELET COUNT 159 10^3/uL (150-450); RED BLOOD COUNT 3.74 10^6/uL (3.72-5.28); RED CELL DISTRIBUTION WIDTH 15.4 % (11.5-14.0); SEGMENTED NEUTROPHILS % (AUTO) 52.7 % (42-78); TOTAL CELLS COUNTED % (AUTO) 100 %; WHITE BLOOD COUNT 4.4 10^3/uL (4.0-10.5)
[2017-07-13 12:57] LABS: ANION GAP 8 (5-19); BLOOD UREA NITROGEN 32 mg/dL (7-20); CARBON DIOXIDE 30 mmol/L (22-30); CHLORIDE 104 mmol/L (98-107); GLUCOSE 131 mg/dL (75-110); POTASSIUM 4.5 mmol/L (3.6-5.0); SODIUM 141.9 mmol/L (137-145)
--- NOTE | 2017-07-13 13:22 | EKG REPORT ---
SEVERITY:- ABNORMAL ECG - SINUS RHYTHM LEFT VENTRICULAR HYPERTROPHY MINIMAL ST ELEVATION, ANTEROLATERAL LEADS : Confirmed by: Eliseo Locke MD 13-Jul-2017 13:21:56
[~2017-07-15 12:05] MED LIST: CEFAZOLIN 2 GM/D5W RTU 2 GM/50 ML RTUPB IV PRN; LIDOCAINE 0.5% INJ-PF (5 MG/ML) 50 ML SDV SUBCUT PRN; NORMAL SALINE 1000 ML (RENAL PATIENTS) IV PRN
--- NOTE | 2017-07-15 13:07 | EKG REPORT ---
SEVERITY:- ABNORMAL ECG - SINUS RHYTHM LEFT VENTRICULAR HYPERTROPHY : Confirmed by: Eliseo Locke MD 15-Jul-2017 13:06:35
[2017-07-15 13:20] LABS: ANION GAP 5 (5-19); BLOOD UREA NITROGEN 30 mg/dL (7-20); CALCIUM 9.5 mg/dL (8.4-10.2); CARBON DIOXIDE 32 mmol/L (22-30); CHLORIDE 108 mmol/L (98-107); GLUCOSE 103 mg/dL (75-110); POTASSIUM 4.3 mmol/L (3.6-5.0); SODIUM 145.4 mmol/L (137-145)
[2017-07-15] MEDS ORDERED: MIDAZOLAM 2 MG/2 ML INJ ONE (13:47)
[2017-07-15] MEDS ORDERED: FENTANYL CITRATE INJ/PF 100 MCG/2 ML AMPUL ONE ×2 (13:47→15:52)
[2017-07-15] MEDS ORDERED: LIDOCAINE 2% INJ-PF (20 MG/ML) 10 ML AMPUL ONE (13:47)
[2017-07-15] MEDS ORDERED: FENTANYL CITRATE INJ/PF 250 MCG/5 ML AMPULE ONE (13:47)
[2017-07-15] MEDS ORDERED: PROPOFOL INJ 200 MG/20 ML VIAL IV ONE ×2 (13:47→13:48)
[2017-07-15] MEDS ORDERED: ACETAMINOPHEN 100 ML IV ONE ×2 (13:48→16:13)
[2017-07-15] MEDS ORDERED: DIPHENHYDRAMINE HCL 50 MG/ML VIAL IV PRN (14:36)
[2017-07-15] MEDS ORDERED: PROMETHAZINE HCL INJ 25 MG/1 ML VIAL IV PRN ×2 (14:36)
[2017-07-15] MEDS ORDERED: FENTANYL CITRATE INJ/PF 100 MCG/2 ML AMPUL IV PRN ×3 (14:36)
[2017-07-15] MEDS ORDERED: MEPERIDINE HCL/PF INJ 25 MG/1 ML DISP.SYRIN IV PRN (14:36)
[2017-07-15] MEDS ORDERED: BUPIVACAINE HCL 0.5%-EPI 1:200000 INJ/PF 30 ML VIAL ONE (15:07)
[2017-07-15] MEDS ORDERED: DEXAMETHASONE SOD PHOSPHATE INJ 4 MG/1 ML VIAL ONE (15:13)
[2017-07-15] MEDS ORDERED: METOCLOPRAMIDE HCL INJ/PF 10 MG/2 ML SDV ONE (15:13)
[2017-07-15] MEDS ORDERED: SUCCINYLCHOLINE CHLORIDE INJ 200 MG/10 ML VIAL ONE (15:13)
[2017-07-15] MEDS: FENTANYL CITRATE INJ/PF 100 MCG/2 ML AMPUL ONE ×2 (16:20→16:35)
--- NOTE | 2017-07-15 16:24 | Operative Report ---
Operative Report DATE OF SURGERY: 07/15/17 POSTOPERATIVE DIAGNOSIS: Left bimalleolar ankle fracture OPERATION: ORIF of left bimalleolar ankle fracture SURGEON: CARLOS SOLITARIO ANESTHESIA: GA TISSUE REMOVED OR ALTERED: None COMPLICATIONS: None ESTIMATED BLOOD LOSS: 50 mL INTRAOPERATIVE FINDINGS: As above PROCEDURE: Patient received 2 g of Ancef in the preoperative holding area. Patient was now taken to the operating room and induced and intubated in supine position. Once the tube was secured a thigh tourniquet was applied to left extremity. Extremity was prepped and draped in a normal surgical fashion. Timeout was done identifying the left as the correct site. Esmarch was used to exsanguinate the extremity and the tourniquet was inflated to 300 mmHg. A standard lateral incision was done straight over the distal fibula. Check position was taken down to the bone and then periosteal elevator was used to expose the fracture site and elevate the periosteum at the fracture site. Both fragments were visualized and Berhane Lamas was used to retract the tissue. Shortly after tourniquet patient started to lose significantly showing that she had a venous tourniquet therefore the tourniquet was let down. Any active bleeding was coagulated and hemostasis was obtained. Return to reducing my lateral malleolus. I was able to then reduce the fracture with reduction clamps. C-arm pictures were taken to confirm our reduction. I then applied the appropriate plate and make sure was in a proper alignment and with C-arm. Once I was satisfied with the proximal distal situation and the AP lateral position of the plate I proceeded then to use the drill guide and drill to drill the proximal hole in the plate in the distal fragment. I measured and placed a proper length screw. I repeated this with the distal hole in the plate to secure the proximal fragment. Reduction clamp was removed and the fracture stayed reduced. AP and lateral x-rays confirm there is no change in alignment. I then proceeded to fill in the remaining holes I drilling and using C-arm and measuring guide to applied appropriate screws. Once I was satisfied with my lateral fixation I then turned my attention to the medial malleolus. A curvilinear incision was done over the medial aspect of the ankle using a 15 blade. Dissection was done with a Metzenbaum scissor. Branches of the small saphenous vein was visualized and retracted. Fracture site was exposed with hematoma. Between 15 blade and periosteal elevator was able to expose the 2 fracture ends. I used a pointed reduction clamp to do my reduction of the medial malleolus. C-arm confirmed proper reduction and therefore I used [address] him in the distal fragment into the proximal aspect of the tibia. AP and lateral C-arm pictures were taken confirming placement and reduction again. I then proceeded to use self drilling self-tapping screws after measuring appropriate length for both of them. C-arm pictures were taken on syndrome to confirm placement of the screws without any complications. I was satisfied with my reduction and fixation of the medial malleolus I then proceeded to close the wound medially with 0 Vicryl to Vicryl and brook.] At this point I proceeded to close my lateral wound with 0 Vicryl and 3-0 Vicryl and brook for skin. Tourniquet was let down and the dressing was applied. Xeroform 4 x 4 sterile dressing followed by Sof-Rol was applied. A posterior Ortho-Glass splint with a Ortho-Glass splint was applied and overwrapped with an Ken bandage. I held the foot in neutral and waiting until the splint hardened. At this point drapes were removed and patient was extubated and sent to PACU in stable condition. Implant was a [employer] titanium distal locking plate with 2 titanium cannulated partially threaded screws medially. Diagnosis
[2017-07-15] MEDS ORDERED: OXYCODONE-ACETAMINOPHEN 5-325 MG TABLET PO PRN (16:28)
--- NOTE | 2017-07-15 16:28 | Discharge Summary ---
Discharge Summary (SDC) - Discharge Final Diagnosis: ORIF of left ankle fracture Date of Surgery: 07/15/17 Discharge Date: 07/15/17 Condition: Good Treatment or Instructions: Keep splint and dressing dry clean and intact until follow-up appointment. Nonweightbearing with ambulation using crutches Ice and elevate. Follow-up in 10-14 days Prescriptions: Oxycodone HCl/Acetaminophen [Percocet 10-325 mg Tablet] 1 - 2 each PO Q4HP PRN # 30 tablet PRN Reason: Discharge Diet: As Tolerated Respiratory Treatments at Home: Deep Breathing/Coughing Discharge Activity: No Driving, Keep Legs Elevated, No Lifting/Push/Pulling, Slowly Increase Activity Home Care Assistance: None Needed Adaptive Devices on Discharge: Axillary Crutches Report the Following to Your Physician Immediately: Shortness of Breath, Vomiting, Increase in Pain, Fever over 101 Degrees, Unusual Bleeding, Redness, Swelling, Warmth, Increased Soreness, Drainage-Yellow, Drainage-Phillips, Drainage- Green, Drainage-Foul Smelling
[2017-07-15] MEDS ORDERED: PROMETHAZINE HCL INJ 25 MG/1 ML VIAL ONE (16:31)
[2017-07-15] MEDS: MORPHINE SULFATE 10 MG/ML INJ ONE ×2 (16:54→17:19)
[2017-07-15] MEDS: OXYCODONE-ACETAMINOPHEN 5-325 MG TABLET PO PRN (19:06)
[2017-07-15] MEDS ORDERED: BUTALB/ACETAMINOPHEN/CAFFEINE 1 TAB EACH PO PRN (21:47)
[2017-07-15] MEDS ORDERED: DIAZEPAM 5 MG TABLET PO PRN (21:47)
[2017-07-15] MEDS ORDERED: DIPHENHYDRAMINE HCL 25 MG CAPSULE PO PRN (21:47)
[2017-07-15] MEDS ORDERED: METHOCARBAMOL 750 MG TABLET PO PRN (21:47)
[2017-07-15] MEDS ORDERED: PROMETHAZINE HCL 25 MG TABLET PO PRN (21:47)
[2017-07-15] MEDS ORDERED: (PENDING PHARMACY ID) (Clonidine Hcl [Catapres 0.3 Mg Tablet] 0.3 MG) PO SCH (22:00)
[2017-07-15] MEDS ORDERED: FLUTICASONE NASAL SPRAY 50 MCG/SPRY 120 SPRAY/16 GM NAREB SCH (22:00)
[2017-07-15] MEDS ORDERED: OXYCODONE HCL SR 40 MG TABLET PO SCH (22:00)
[2017-07-15] MEDS ORDERED: (PENDING PHARMACY ID) (Lisinopril [Zestril] 10 MG) PO SCH (22:00)
[2017-07-15] MEDS ORDERED: METOCLOPRAMIDE HCL PO SCH (22:00)
[2017-07-15] MEDS ORDERED: DIVALPROEX SODIUM 500 MG TAB.SR.24H PO SCH (22:00)
[2017-07-15] MEDS ORDERED: GABAPENTIN 300 MG CAPSULE PO SCH (22:00)
[2017-07-15] MEDS ORDERED: POLYETHYLENE GLYCOL 3350 POWDER 17 GM/1 PACKET PO ONE (22:15)
[2017-07-15] MEDS ORDERED: ZOLPIDEM TARTRATE 5 MG TABLET PO ONE (22:15)
[2017-07-15] MEDS ORDERED: LISINOPRIL 10 MG TABLET PO ONE (22:15)
[2017-07-15] MEDS: CLONIDINE HCL 0.1 MG TABLET PO SCH (22:29)
--- NOTE | 2017-07-15 22:41 | RADIOLOGY REPORT (SQ) ---
EXAM DESCRIPTION: NO CHG FLUORO; ANKLE LEFT AP/LATERAL COMPLETED DATE/TIME: 07/15/2017 10:29 pm REASON FOR STUDY: ORIF LT ANKLE S82.842A DISPLACED BIMALLEOLAR FRACTURE OF LEFT LOWER LEG, I COMPARISON: Preoperative 07/09/2017. FLUOROSCOPY TIME: 0.5 minutes 5 images saved to PACS. TECHNIQUE: Intra-operative images acquired during surgical procedure to evaluate progress. NUMBER OF IMAGES: 5 LIMITATIONS: None. FINDINGS: Images reveal open reduction internal fixation of ankle fracture with grossly anatomic ali gnment. IMPRESSION: IMAGE(S) OBTAINED DURING PROCEDURE. COMMENT: Quality ID 145: Final reports for procedures using fluoroscopy that document radiation exp osure indices, or exposure time and number of fluorographic images (if radiation exposure indices are not available) Please consult full operative report of the attending physician for description of the procedure. TECHNICAL DOCUMENTATION: JOB ID: [id number] [employer] All Rights Reserved Reading location - IP/workstation name: [email or web address]
--- NOTE | 2017-07-15 22:41 | RADIOLOGY REPORT (SQ) ---
EXAM DESCRIPTION: NO CHG FLUORO; ANKLE LEFT AP/LATERAL COMPLETED DATE/TIME: 07/15/2017 10:29 pm REASON FOR STUDY: ORIF LT ANKLE S82.842A DISPLACED BIMALLEOLAR FRACTURE OF LEFT LOWER LEG, I COMPARISON: Preoperative 07/09/2017. FLUOROSCOPY TIME: 0.5 minutes 5 images saved to PACS. TECHNIQUE: Intra-operative images acquired during surgical procedure to evaluate progress. NUMBER OF IMAGES: 5 LIMITATIONS: None. FINDINGS: Images reveal open reduction internal fixation of ankle fracture with grossly anatomic ali gnment. IMPRESSION: IMAGE(S) OBTAINED DURING PROCEDURE. COMMENT: Quality ID 145: Final reports for procedures using fluoroscopy that document radiation exp osure indices, or exposure time and number of fluorographic images (if radiation exposure indices are not available) Please consult full operative report of the attending physician for description of the procedure. TECHNICAL DOCUMENTATION: JOB ID: [id number] [employer]- All Rights Reserved Reading location - IP/workstation name: [email or web address]
[2017-07-16] MEDS ORDERED: HYDRALAZINE HCL INJ/PF 20 MG/1 ML SDV IV PRN (02:05)
[2017-07-16] MEDS ORDERED: DIVALPROEX SODIUM 500 MG TAB.SR.24H PO ONE (02:32)
[2017-07-16] MEDS: OXYCODONE-ACETAMINOPHEN 5-325 MG TABLET PO PRN ×3 (03:10→13:33)
[2017-07-16] MEDS: CLONIDINE HCL 0.1 MG TABLET PO SCH (06:28)
[2017-07-16] MEDS ORDERED: METOCLOPRAMIDE HCL 10 MG TABLET PO SCH (08:00)
[2017-07-16] MEDS ORDERED: ESCITALOPRAM OXALATE 10 MG TABLET PO SCH (10:00)
[2017-07-16] MEDS ORDERED: ARIPIPRAZOLE 5 MG TABLET PO SCH (10:00)
[2017-07-16] MEDS ORDERED: POLYETHYLENE GLYCOL 3350 POWDER 17 GM/1 PACKET PO SCH (10:00)
[2017-07-16] MEDS ORDERED: (PENDING PHARMACY ID) (Escitalopram Oxalate [Lexapro] 40 MG) PO SCH (10:00)
[2017-07-16] MEDS ORDERED: CALCITRIOL 0.25 MCG CAPSULE PO SCH (10:00)
[2017-07-16] MEDS ORDERED: (PENDING PHARMACY ID) (Aripiprazole [Abilify 15 Mg Tablet] 15 MG) PO SCH (10:00)
[2017-07-16] MEDS ORDERED: CALCITRIOL PO SCH (10:00)
[2017-07-16] MEDS ORDERED: FUROSEMIDE 40 MG TABLET PO SCH (10:00)
[2017-07-16] MEDS ORDERED: LISINOPRIL 10 MG TABLET PO SCH (10:00)
[2017-07-16] MEDS ORDERED: AMLODIPINE BESYLATE 10 MG TABLET PO SCH (10:00)
[2017-07-16 12:17] VITALS: BP 136/84
--- NOTE | 2017-07-16 13:05 | PDOC PROGRESS REPORT ---
Subjective Progress Note for:: 07/16/17 Subjective:: Patient's pain is well controlled. She states that she has been urinating without any issues. Reason For Visit: S82.842A DISPLACED BIMALLEOLAR FRACTURE OF LEFT LO Physical Exam Vital Signs: Temp Pulse Resp BP Pulse Ox 36.9 C 72 16 136/84 H 96 07/16/17 12:07 07/16/17 12:07 07/16/17 12:07 07/16/17 12:07 07/16/17 12:07 Intake & Output 07/15/17 07/16/17 07/17/17 06:59 06:59 06:59 Intake Total 1380 Output Total 300 100 Balance 1080 -100 Weight 98 kg Adult Front & Back Image: 1 - Splint is dry clean and intact. Good capillary refill with good sensation to light touch. Results Laboratory Results: 07/13/17 12:22 07/15/17 12:47 07/15/17 12:47 Sodium 145.4 H Potassium 4.3 Chloride 108 H Carbon Dioxide 32 H Anion Gap 5 BUN 30 H Creatinine 3.54 H Est GFR ( Amer) 16 L Est GFR (Non-Af Amer) 14 L Glucose 103 Calcium 9.5 Impressions: Ankle X-Ray 07/15/17 00:00 IMPRESSION: IMAGE(S) OBTAINED DURING PROCEDURE. Fluoroscopy 07/15/17 00:00 IMPRESSION: IMAGE(S) OBTAINED DURING PROCEDURE. Assessment & Plan - Plan Summary Plan Summary: Patient blood pressure is under control and is urinating as expected. She is instructed to then follow up and go home and follow-up in 10-14 days. Her is currently being catheterized for a small heart attack therefore we will try to get another potential right home and potentially have her visit her as soon as possible.
[2017-07-16] MEDS ORDERED: ZOLPIDEM TARTRATE 5 MG TABLET PO SCH (22:00)
== END 2017-07-16 13:25 | disposition home or self-care (01) ==
LOC: OROUT 12:05 → 2N 18:14 → OROUT 07-16 13:47
PROVIDERS: ADMIT Orthopaedic Surgery; ATTEND Orthopaedic Surgery
PROC: 0QSH04Z Reposition Left Tibia with Internal Fixation Device, Open Approach (ICD-10-PCS; principal; 2017-07-16)
DX: S82.842A Displaced bimalleolar fracture of left lower leg, initial encounter for closed fracture (principal); I10 Essential (primary) hypertension
CPT/HCPCS: 93005 ×2; 36415 ×2; 85025; 80048 ×2; 81001; 73600; 93010 ×2; 27814; G0378 ×2; G0379; C1713 ×6; C1769; J2250; J3490 ×13; J1100; J3010 ×2; J0360; J2765; J2270; J2550; J0330; J2704; J0690; J1642; J0131; 01480

== ENCOUNTER 2017-08-10 12:01 | Emergency (ER) | payer MEDICAID ==
--- NOTE | 2017-08-10 12:40 | ER Document Report ---
ED Medical Screen (RME) - General Chief Complaint: Headache Stated Complaint: HEAD PAIN Time Seen by Provider: 08/10/17 12:35 Mode of Arrival: Ambulatory Information source: Patient Notes: 51-year-old female history of migraine headaches presents with a migraine. Patient denies any fevers or chills nausea vomiting or diarrhea notes this is similar to her previous migraines, she states when her migraines are not controlled by Fioricet that she takes medication here in the emergency department she would like her port accessed I have greeted and performed a rapid initial assessment of this patient. A comprehensive ED assessment and evaluation of the patient, analysis of test results and completion of the medical decision making process will be conducted by additional ED providers. PHYSICAL EXAMINATION: GENERAL: Well-appearing, well-nourished and in no acute distress. HEAD: Atraumatic, normocephalic. EYES: Pupils equal round extraocular movements intact, conjunctiva are normal. ENT: Nares patent NECK: Normal range of motion LUNGS: No respiratory distress Musculoskeletal: Normal range of motion NEUROLOGICAL: Normal speech, normal gait. PSYCH: Normal mood, normal affect. SKIN: Warm, Dry, normal turgor, no rashes or lesions noted. TRAVEL OUTSIDE OF THE [place] IN LAST 30 DAYS: No - Related Data Allergies/Adverse Reactions: codeine [Codeine] Allergy (Mild, Verified 08/10/17 12:02) Itching ketorolac tromethamine [From Toradol] Allergy (Unknown, Verified 08/10/17 12:02) Anxiety nalbuphine HCl [From Nubain] Allergy (Unknown, Verified 08/10/17 12:02) Anxiety ondansetron HCl [From Zofran] Allergy (Unknown, Verified 08/10/17 12:02) Itching droperidol [Droperidol] Allergy (Verified 08/10/17 12:02) reports heart racing, doesn't like how it makes her feel Past Medical History - Social History Chew tobacco use (# tins/day): No Frequency of alcohol use: None Drug Abuse: None - Past Medical History Cardiac Medical History: Reports: Hx Hypercholesterolemia, Hx Hypertension Denies: Hx Coronary Artery Disease, Hx Heart Attack Pulmonary Medical History: Reports: Hx Sleep Apnea Denies: Hx Asthma, Hx Bronchitis, Hx COPD, Hx Pneumonia Neurological Medical History: Reports: Hx Migraine. Denies: Hx Cerebrovascular Accident, Hx Seizures Endocrine Medical History: Reports: Hx Diabetes Mellitus Type 2 Renal/ Medical History: Reports: Hx End Stage Renal Disease - Stage IV pending dialysis start after fistula placement, Hx Renal Insufficiency. Denies : Hx Peritoneal Dialysis GI Medical History: Reports: Hx Gastroesophageal Reflux Disease, Hx Irritable Bowel Musculoskeltal Medical History: Reports Hx Arthritis - right knee, Reports Hx Fibromyalgia, Reports Hx Musculoskeletal Deformity, Reports Hx Musculoskeletal Trauma Psychiatric Medical History: Reports: Hx Depression, Hx Post Traumatic Stress Disorder Past Surgical History: Reports: Hx Appendectomy, Hx Cardiac Catheterization - 3 , last one 3 years ago showing no blockages, Hx Cholecystectomy, Hx Hysterectomy , Hx Orthopedic Surgery - RIGHT ANKLE SURGERY 01/2011, shoulder surgery 12/2106, Hx Thyroid Surgery, Hx Vascular Surgery - port a cath R upper chest. Denies: Hx Pacemaker - Immunizations Hx Diphtheria, Pertussis, Tetanus Vaccination: Yes - 06/17/17 History of Influenza Vaccine for 01/2017 - 06/2017 Season: Yes Influenza Administration Date for 01/2017 - 06/2017 Season: 01/16/17 Physical Exam - Vital signs Vitals: Temp Pulse Resp BP Pulse Ox 97.8 F 67 20 136/77 H 97 08/10/17 12:06 08/10/17 12:06 08/10/17 12:06 08/10/17 12:06 08/10/17 12:06 Course - Vital Signs Vital signs: Temp Pulse Resp BP Pulse Ox 97.8 F 67 20 136/77 H 97 08/10/17 12:06 08/10/17 12:06 08/10/17 12:06 08/10/17 12:06 08/10/17 12:06
[2017-08-10] MEDS ORDERED: DIPHENHYDRAMINE HCL 50 MG/ML VIAL IV ONE (12:41)
[2017-08-10] MEDS ORDERED: PROCHLORPERAZINE EDISYLATE INJ 10 MG/2 ML VIAL IV ONE ×2 (12:41→15:43)
--- NOTE | 2017-08-10 13:42 | ER Document Report ---
ED Headache - General Chief Complaint: Headache Stated Complaint: HEAD PAIN Time Seen by Provider: 08/10/17 12:35 Mode of Arrival: Ambulatory Notes: Patient is here complaining of a migraine headache that she has had for about 8 days. Her headache is located in the top of her head, where she gets her migraine headaches. She has been nauseated but not vomiting. Buena hot, but has not taken her temperature. Patient currently is treated with Depakote twice a day for the migraine headaches, along with Fioricet, and she says neither of them help her headaches. She is also experiencing some blurred vision. No loss of consciousness or other neurologic deficits. Patient fell nearly a month ago and fractured her left foot which is currently in a walking boot. Patient has kidney disease and is on the kidney transplant list. Hypertension. TRAVEL OUTSIDE OF THE [place] IN LAST 30 DAYS: No - Related Data Allergies/Adverse Reactions: codeine [Codeine] Allergy (Mild, Verified 08/10/17 12:02) Itching ketorolac tromethamine [From Toradol] Allergy (Unknown, Verified 08/10/17 12:02) Anxiety nalbuphine HCl [From Nubain] Allergy (Unknown, Verified 08/10/17 12:02) Anxiety ondansetron HCl [From Zofran] Allergy (Unknown, Verified 08/10/17 12:02) Itching droperidol [Droperidol] Allergy (Verified 08/10/17 12:02) reports heart racing, doesn't like how it makes her feel Past Medical History - General Information source: Patient - Social History Smoking Status: Never Smoker Chew tobacco use (# tins/day): No Frequency of alcohol use: None Drug Abuse: None Family History: Reviewed & Not Pertinent, CAD, CVA, Hypertension Patient has suicidal ideation: No Patient has homicidal ideation: No - Past Medical History Cardiac Medical History: Reports: Hx Hypercholesterolemia, Hx Hypertension Pulmonary Medical History: Reports: Hx Sleep Apnea Neurological Medical History: Reports: Hx Migraine Endocrine Medical History: Reports: Hx Diabetes Mellitus Type 2 Renal/ Medical History: Reports: Hx End Stage Renal Disease - Stage IV pending dialysis start after fistula placement, Hx Renal Insufficiency GI Medical History: Reports: Hx Gastroesophageal Reflux Disease, Hx Irritable Bowel Musculoskeltal Medical History: Reports Hx Arthritis - right knee, Reports Hx Fibromyalgia, Reports Hx Musculoskeletal Deformity, Reports Hx Musculoskeletal Trauma Psychiatric Medical History: Reports: Hx Depression, Hx Post Traumatic Stress Disorder Past Surgical History: Reports: Hx Appendectomy, Hx Cardiac Catheterization - 3 , last one 3 years ago showing no blockages, Hx Cholecystectomy, Hx Hysterectomy , Hx Orthopedic Surgery - RIGHT ANKLE SURGERY 01/2011, shoulder surgery 12/2106, Hx Thyroid Surgery, Hx Vascular Surgery - port a cath R upper chest - Immunizations Hx Diphtheria, Pertussis, Tetanus Vaccination: Yes - 06/17/17 Hx Pneumococcal Vaccination: 04/19/17 Review of Systems - Review of Systems Notes: REVIEW OF SYSTEMS: CONSTITUTIONAL : Denies fever, but has felt hot. EENT: Denies eye, ear, nose or mouth or throat pain or other symptoms, except for some blurred vision. CARDIOVASCULAR: Denies chest pain. RESPIRATORY: Denies cough, chest congestion, or shortness of breath. GASTROINTESTINAL: Nauseated. Denies abdominal pain vomiting, or diarrhea. GENITOURINARY: Denies difficulty or painful urinating, urinary frequency, blood in urine. History of renal insufficiency to start dialysis soon followed by kidney transplant when available. MUSCULOSKELETAL: Denies back or neck pain. Denies joint pain or swelling. SKIN: Denies rash or skin lesions. NEUROLOGICAL: Denies LOC or altered mental status. Denies sensory loss or motor deficits. ALL OTHER SYSTEMS REVIEWED AND NEGATIVE. Physical Exam - Vital signs Vitals: Temp Pulse Resp BP Pulse Ox 97.8 F 67 20 136/77 H 97 08/10/17 12:06 08/10/17 12:06 08/10/17 12:06 08/10/17 12:06 08/10/17 12:06 Interpretation: Normal - Notes Notes: PHYSICAL EXAMINATION: GENERAL: Well-appearing, in no acute distress. HEAD: Atraumatic, normocephalic. EYES: Pupils equal round and reactive to light, extraocular movements intact. ENT: oropharynx clear without exudates. Moist mucous membranes. NECK: Normal range of motion, supple. LUNGS: Breath sounds clear and equal bilaterally. Port anterior chest HEART: Regular rate and rhythm without murmurs. ABDOMEN: Soft, nontender. No guarding or rebound. No masses. BACK: No tenderness throughout entire back. EXTREMITIES: Normal range of motion without pain. Left foot and ankle in a post surgical walking boot. NEUROLOGICAL: Normal speech, normal gait. Normal sensory, motor, and reflex exams. Awake, alert, and oriented x3. Cranial nerves normal. PSYCH: Normal mood, normal affect. SKIN: Warm, dry, no rashes. Course - Re-evaluation Re-evalutation: 08/10/17 14:34 I entered the patient's room and she is sleeping soundly enough to be snoring. I had to touch her a couple of times to awaken her and she still complained that her headache was a 4. We will give her a dose of Reglan and see if that helps some more. Patient felt some more improvement after the Reglan. She says that she has Reglan at home. Has been advised by Dr. Castorena not to take it very often because it can cause Parkinson's, although I am not aware of that complication. I advised her to use her Reglan periodically as needed for her headaches. She was also given a prescription for Compazine to take along with Benadryl. See the discharge instructions for details. - Vital Signs Vital signs: Temp Pulse Resp BP Pulse Ox 97.9 F 96 16 131/78 H 98 08/10/17 16:04 08/10/17 16:04 08/10/17 16:04 08/10/17 16:04 08/10/17 16:04 Discharge - Discharge Clinical Impression: Migraine, Renal failure, chronic Condition: Stable Disposition: HOME, SELF-CARE Additional Instructions: HEADACHE: The physician does not feel that the headache you are experiencing has a serious underlying cause. Most headaches are due to emotional stress, with resultant muscle tension (tension headache). Occasionally, headaches are secondary to changes in the blood vessels of the scalp (vascular headache and migraine headache). Sometimes, a headache is the first symptom of another developing illness, such as a viral infection. You have no evidence of stroke, bleeding, meningitis, or other serious cause of your headache. The treatment of headaches varies with the severity and cause of the pain. Not all headaches need pain shots. In fact, there is evidence that using narcotics for headaches may make them worse in the long run. The physician will determine the therapy that's in your best interest. If you develop a fever, if the headache is different from any you've previously experienced, or if the headache progressively worsens, then call your physician at once or go to the emergency room. USE OF DIPHENHYDRAMINE: Diphenhydramine (Benadryl) is an antihistamine and has been recommended to help treat your headache and to prevent side effects of other medications used to treat headaches. The medication can be repeated four times daily. Age adult 1-2 tabs Antihistamines may cause drowsiness, especially with the first dose. Do not operate machinery or drive while under the effects of the medication. Do not combine the medication with alcohol, or with any other medication without talking to your doctor. REGLAN (METOCLOPRAMIDE): Reglan has been prescribed. This medicine affects the stomach and intestines. It can be used to treat nausea and vomiting, to prevent reflux of stomach acid up into the esophagus, or to increase the contractions of the stomach and intestines. It is often prescribed for esophagitis, and for paralysis of the stomach in diabetics. Reglan can cause either mild restlessness or drowsiness. You should contact the doctor at once if you become extremely restless, anxious, or cannot sleep, or if you develop uncontrollable motions of the lips, tongue, or jaw. Do not take alcohol with this medicine. Do not drive or operate machinery until you have been taking this medicine long enough to know how it affects you. Call the doctor if you develop abdominal pains, lightheadedness, black stool, or blood in the stool or vomitus. INTRAVENOUS COMPAZINE FOR HEADACHE: You have received therapy for headaches, using intravenous Compazine. This treatment is dramatically successful in relieving the headache in about 50 percent of cases. When it works, it provides a rapid method of eliminating the headache without resorting to narcotics (and the problems associated with them). Most patients still feel fully alert after the Compazine, but others may be slightly drowsy. It's best not to drive or work with machinery for six to eight hours. Do not take alcohol or other medication unless you discuss it with the doctor. If you develop tightness and spasms in your muscles, especially the neck and tongue, you should return. This is a side effect which can be treated. FOLLOW-UP CARE: If you have been referred to a physician for follow-up care, call the physician s office for an appointment as you were instructed or within the next two days. If you experience worsening or a significant change in your symptoms, notify the physician immediately or return to the Emergency Department at any time for re-evaluation. Compazine is being prescribed and a 10 mg pill. Usual dose would be 2 of these 10 mg pills along with 50 mg of Benadryl by mouth, a couple of times a day, as needed. The Benadryl is designed to help with your headache and also relieve any muscle spasms you may have of the tongue and mouth and neck, which may happen with Compazine. I recommend that you take the Benadryl about 15 or 20 minutes before you take the Compazine. You may occasionally also take your Reglan for your headaches. It will also help your nausea. Her usual dose of Reglan is two of the 10 mg pills along with 50 mg of Benadryl I recommend taking the Benadryl about 15 minutes before you take the Reglan. The Reglan may also be taken at the same time as you take Compazine. Prescriptions: Prochlorperazine Maleate [Compazine 10 mg Tablet] 20 mg PO BIDP PRN #20 tablet PRN Reason:
[2017-08-10] MEDS ORDERED: METOCLOPRAMIDE HCL INJ/PF 10 MG/2 ML SDV IV ONE (14:27)
[2017-08-10 16:29] VITALS: BP 131/78
== END 2017-08-10 16:30 | disposition home or self-care (01) ==
LOC: ER 12:01
DX: G43.909 Migraine, unspecified, not intractable, without status migrainosus (principal); N18.9 Chronic kidney disease, unspecified; I12.9 Hypertensive chronic kidney disease with stage 1 through stage 4 chronic kidney disease, or unspecified chronic kidney disease; E78.00 Pure hypercholesterolemia, unspecified; Z88.6 Allergy status to analgesic agent
CPT/HCPCS: 36591; 96376; 99284; 96374; 96375; J1200; J2765; J0780

== ENCOUNTER → 2017-08-30 | Outpatient (CLI) | payer MEDICAID ==
[2017-08-30 16:57] LABS: HEMATOCRIT 30.7 % (36.0-47.0); HEMOGLOBIN 10.2 g/dL (12.0-15.5); MEAN CORPUSCULAR HEMOGLOBIN 29.6 pg (27.0-33.4); MEAN CORPUSCULAR HGB CONC 33.2 g/dL (32.0-36.0); MEAN CORPUSCULAR VOLUME 89 fl (80-97); PLATELET COUNT 199 10^3/uL (150-450); RED BLOOD COUNT 3.44 10^6/uL (3.72-5.28); RED CELL DISTRIBUTION WIDTH 15.1 % (11.5-14.0)
[2017-08-30 17:13] LABS: ANION GAP 12 (5-19); BLOOD UREA NITROGEN 32 mg/dL (7-20); CALCIUM 9.3 mg/dL (8.4-10.2); CARBON DIOXIDE 27 mmol/L (22-30); CHLORIDE 106 mmol/L (98-107); GLUCOSE 143 mg/dL (75-110); PHOSPHORUS 4.4 mg/dL (2.5-4.5); POTASSIUM 3.7 mmol/L (3.6-5.0); SODIUM 144.5 mmol/L (137-145)
== END ==
LOC: OD 15:38
PROVIDERS: ATTEND Internal Medicine Nephrology
DX: N18.4 Chronic kidney disease, stage 4 (severe) (principal); D64.9 Anemia, unspecified; I50.9 Heart failure, unspecified; R80.9 Proteinuria, unspecified
CPT/HCPCS: 36415; 80048; 83970; 84100; 85027

== ENCOUNTER → 2017-10-05 | Outpatient (CLI) | payer MEDICAID ==
[2017-10-05 12:41] LABS: HEMATOCRIT 36.4 % (36.0-47.0); HEMOGLOBIN 12.1 g/dL (12.0-15.5); MEAN CORPUSCULAR HEMOGLOBIN 29.9 pg (27.0-33.4); MEAN CORPUSCULAR HGB CONC 33.1 g/dL (32.0-36.0); MEAN CORPUSCULAR VOLUME 90 fl (80-97); PLATELET COUNT 103 10^3/uL (150-450); RED BLOOD COUNT 4.03 10^6/uL (3.72-5.28); RED CELL DISTRIBUTION WIDTH 15.4 % (11.5-14.0); WHITE BLOOD COUNT 3.5 10^3/uL (4.0-10.5)
[2017-10-05 12:45] LABS: APPEARANCE,URINE CLEAR; BILIRUBIN,URINE NEGATIVE (NEGATIVE); COLOR,URINE YELLOW; GLUCOSE, URINE NEGATIVE (NEGATIVE); KETONES,URINE NEGATIVE (NEGATIVE); LEUKOCYTE ESTERASE,URINE TRACE (NEGATIVE); NITRITE,URINE NEGATIVE (NEGATIVE); PROTEIN,URINE 100 mg/dL (NEGATIVE); URINE SPECIFIC GRAVITY 1.017; UROBILINOGEN,URINE NEGATIVE mg/dL (<2.0)
[2017-10-05 13:01] LABS: ANION GAP 12 (5-19); BLOOD UREA NITROGEN 44 mg/dL (7-20); CALCIUM 9.2 mg/dL (8.4-10.2); CARBON DIOXIDE 25 mmol/L (22-30); CHLORIDE 107 mmol/L (98-107); GLUCOSE 129 mg/dL (75-110); POTASSIUM 4.5 mmol/L (3.6-5.0); SODIUM 144.1 mmol/L (137-145)
== END ==
LOC: OD 11:25
PROVIDERS: ATTEND Internal Medicine Nephrology
DX: I12.0 Hypertensive chronic kidney disease with stage 5 chronic kidney disease or end stage renal disease (principal); N18.5 Chronic kidney disease, stage 5; R80.9 Proteinuria, unspecified; D64.9 Anemia, unspecified
CPT/HCPCS: 36415; 80048; 81001; 83735; 83970; 84100; 85027

== ENCOUNTER 2017-11-30 07:47 | Outpatient (CLI) | payer MEDICAID ==
[~2017-11-30 07:47] MED LIST changes: -CEFAZOLIN 2 GM/D5W RTU 2 GM/50 ML RTUPB IV PRN; +FERRIC CARBOXYMALTOSE 750 MG in NORMAL SALINE 250 ML IV PRN; -LIDOCAINE 0.5% INJ-PF (5 MG/ML) 50 ML SDV SUBCUT PRN; -NORMAL SALINE 1000 ML (RENAL PATIENTS) IV PRN; +NORMAL SALINE 250 ML IV PRN; +NORMAL SALINE 500 ML IV PRN
[2017-11-30 08:33] VITALS: BP 146/85
== END 2017-11-30 09:41 | disposition home or self-care (01) ==
LOC: II 07:47 → 5TH 07:51 → II 09:41
PROVIDERS: ATTEND Internal Medicine Nephrology
PROC: 3E043GC Introduction of Other Therapeutic Substance into Central Vein, Percutaneous Approach (ICD-10-PCS; principal; 2017-11-30)
DX: Z76.89 Persons encountering health services in other specified circumstances (principal)
CPT/HCPCS: 96365; 96374; J7050; J1439

== ENCOUNTER 2018-03-24 07:25 | Emergency (ER) | payer MEDICAID ==
[2018-03-24 07:30] VITALS: BP 138/86
--- NOTE | 2018-03-24 07:53 | ER Document Report ---
ED ENT - General Chief Complaint: Ear Pain Stated Complaint: EAR AND THROAT PAIN Time Seen by Provider: 03/24/18 07:43 Notes: 52-year-old female presents with 4 days of sore throat and bilateral ear pain. Patient stated she has felt poorly. She is had subjective fever and chills. Light of a sore burning throat hurts when she swallows and bilateral ear pain last night the ear pain became severe. More so her left than her right and had trouble sleeping she dropped her daughter off at school this morning and came straight here to the ER [facility]. Planes of severe left ear pain. Nothing really makes it better or worse. Denies any nausea vomiting. TRAVEL OUTSIDE OF THE [place] IN LAST 30 DAYS: No - Related Data Allergies/Adverse Reactions: codeine [Codeine] Allergy (Mild, Verified 03/24/18 07:26) Itching ketorolac tromethamine [From Toradol] Allergy (Unknown, Verified 03/24/18 07:26) Anxiety nalbuphine HCl [From Nubain] Allergy (Unknown, Verified 03/24/18 07:26) Anxiety ondansetron HCl [From Zofran] Allergy (Unknown, Verified 03/24/18 07:26) Itching droperidol [Droperidol] Allergy (Verified 03/24/18 07:26) reports heart racing, doesn't like how it makes her feel Past Medical History - Social History Smoking Status: Never Smoker Family History: Reviewed & Not Pertinent, CAD, CVA, Hypertension Patient has suicidal ideation: No Patient has homicidal ideation: No - Past Medical History Cardiac Medical History: Reports: Hx Hypercholesterolemia, Hx Hypertension Denies: Hx Coronary Artery Disease, Hx Heart Attack Pulmonary Medical History: Reports: Hx Sleep Apnea Denies: Hx Asthma, Hx Bronchitis, Hx COPD, Hx Pneumonia Neurological Medical History: Reports: Hx Migraine. Denies: Hx Cerebrovascular Accident, Hx Seizures Endocrine Medical History: Reports: Hx Diabetes Mellitus Type 2 Renal/ Medical History: Reports: Hx End Stage Renal Disease, Hx Renal Insufficiency. Denies: Hx Peritoneal Dialysis GI Medical History: Reports: Hx Gastroesophageal Reflux Disease, Hx Irritable Bowel Musculoskeletal Medical History: Reports Hx Arthritis - right knee, Reports Hx Fibromyalgia, Reports Hx Musculoskeletal Deformity, Reports Hx Musculoskeletal Trauma Psychiatric Medical History: Reports: Hx Depression, Hx Post Traumatic Stress Disorder Past Surgical History: Reports: Hx Appendectomy, Hx Cardiac Catheterization - 3 , last one 3 years ago showing no blockages, Hx Cholecystectomy, Hx Hysterectomy , Hx Orthopedic Surgery - RIGHT ANKLE SURGERY 01/2011, shoulder surgery 12/2106, Hx Thyroid Surgery, Hx Vascular Surgery - port a cath R upper chest. Denies: Hx Pacemaker - Immunizations Hx Diphtheria, Pertussis, Tetanus Vaccination: Yes - 06/17/17 Hx Pneumococcal Vaccination: 04/19/17 Review of Systems - Review of Systems Constitutional: Chills, Fever EENT: Ear pain, Nose congestion, Throat pain. denies: Blurred vision, Double vision, Ear discharge, Nose discharge, Sinus pressure, Difficulty swallowing, Mouth pain Cardiovascular: denies: Chest pain, Dyspnea Respiratory: denies: Short of breath Gastrointestinal: denies: Abdominal pain, Nausea, Vomiting Genitourinary: denies: Dysuria, Frequency, Hematuria -: Yes All other systems reviewed and negative Physical Exam - Vital signs Vitals: Temp Pulse Resp BP Pulse Ox 98.0 F 68 14 138/86 H 100 03/24/18 07:28 03/24/18 07:28 03/24/18 07:28 03/24/18 07:28 03/24/18 07:28 - Notes Notes: GENERAL_APPEARANCE: well_nourished, alert, cooperative, no_acute_distress, no_ obvious_discomfort. VITALS: reviewed, see vital signs table. HEAD: no_swelling\tenderness on the head. EYES: PERRL, EOMI, conjunctiva_clear. EARS: Right TM is streaked, the left TM is injected there is some serous fluid behind the TM there is moderate injection. NOSE: no_nasal_discharge. MOUTH: (-)decreased moisture. THROAT: Moderate_tonsilar_inflammation, no_airway_obstruction. no_ lymphadenopathy NECK: supple, no_neck_tenderness, (-)thyromegaly. BACK: no_back_tenderness. CHEST_WALL: no_chest_tenderness. LUNGS: no_wheezing, no_rales, no_rhonchi, (-)accessory muscle use, good air exchange bilateral. HEART: normal_rate, normal_rhythm, normal_S1, normal_S2, (-)S3, (-)S4, no_ murmur, no_rub. ABDOMEN: normal_BS, soft, no_abd_tenderness, (-)guarding, (-)rebound, no_ organomegaly, no_abd_masses. EXTREMITIES: good pulses in all_extremities, no_swelling\tenderness in the extremities, no_edema. SKIN: warm, dry, good_color, no_rash. MENTAL_STATUS: speech_clear, oriented_X_3, normal_affect, responds_ appropriately to questions. Course - Re-evaluation Re-evalutation: 03/24/18 07:51 The patient presents with sore throat may have started with a viral URI however it looks like she is having some eustachian tube dysfunction with serous fluid with infection behind the left TM. The [facility] Because of the infection will go ahead and place her on antibiotics and some steroids. She cannot take NSAIDs. I spoke with her about this patient was doing well follow-up with primary care she has no meningismus or nuchal rigidity no purpura or petechiae noted. Patient looks well-hydrated nontoxic. - Vital Signs Vital signs: Temp Pulse Resp BP Pulse Ox 98.0 F 68 14 138/86 H 100 03/24/18 07:28 03/24/18 07:28 03/24/18 07:28 03/24/18 07:28 03/24/18 07:28 Discharge - Discharge Clinical Impression: Otitis media Qualifiers: Otitis media type: unspecified nonsuppurative Laterality: left Qualified Code(s ): H65.92 - Unspecified nonsuppurative otitis media, left ear Condition: Good Disposition: HOME, SELF-CARE Instructions: Otitis Media ([facility]) Prescriptions: Amoxicillin 1 tab PO TID #30 tab Methylprednisolone [Medrol Dosepack (4 mg/Tab) 21 Tab/Dosepak] 4 mg PO ASDIR PRN #21 tab.ds.pk PRN Reason:
== END 2018-03-24 07:57 | disposition home or self-care (01) ==
LOC: ER 07:25
DX: H65.92 Unspecified nonsuppurative otitis media, left ear (principal); R50.9 Fever, unspecified; E78.00 Pure hypercholesterolemia, unspecified; I12.0 Hypertensive chronic kidney disease with stage 5 chronic kidney disease or end stage renal disease; E11.22 Type 2 diabetes mellitus with diabetic chronic kidney disease; N18.6 End stage renal disease; Z88.6 Allergy status to analgesic agent; Z90.49 Acquired absence of other specified parts of digestive tract; Z90.710 Acquired absence of both cervix and uterus
CPT/HCPCS: 99282

== ENCOUNTER 2018-05-01 04:39 | Emergency (ER) | payer MEDICAID ==
[2018-05-01] MEDS ORDERED: NORMAL SALINE 250 ML IV ONE (05:11)
[2018-05-01] MEDS ORDERED: FENTANYL CITRATE INJ/PF 100 MCG/2 ML AMPUL IV ONE (05:11)
--- NOTE | 2018-05-01 05:15 | ER Document Report ---
Doctor's Note Notes: 05/01/18 05:12 I performed a quick triage evaluation the patient. Patient is a 52-year-old female presents with complaint of bilateral low back pain and flank pain and dysuria and foul-smelling odor to her urine. She has a history of chronic kidney disease. She is on dialysis. She is followed by Dr. Castorena. She has gurrola d some vomiting. She has felt febrile at times. Some pain in the suprapubic region. On exam she appears to have some pain. She does have positive Rene sign bilaterally. No pain to palpation of her abdomen or flank region. She is not septic or toxic appearing. I have ordered this small IV fluid bolus. She did just give a urine sample. We will send this for evaluation. Of ordered blood work. I ordered small dose of fentanyl for pain control being that she does appear to be in significant pain. 05/01/18 05:15 Dictation of this chart was performed using voice recognition software; ther efore, there may be some unintended grammatical errors.
[2018-05-01] MEDS ORDERED: PROMETHAZINE HCL 25 MG TABLET PO ONE (05:50)
[2018-05-01 06:18] LABS: APPEARANCE,URINE SLIGHTLY-CLOUDY; BILIRUBIN,URINE NEGATIVE (NEGATIVE); COLOR,URINE STRAW; GLUCOSE, URINE 50 mg/dL (NEGATIVE); KETONES,URINE NEGATIVE (NEGATIVE); LEUKOCYTE ESTERASE,URINE MODERATE (NEGATIVE); NITRITE,URINE NEGATIVE (NEGATIVE); PROTEIN,URINE 100 mg/dL (NEGATIVE); URINE SPECIFIC GRAVITY 1.008; UROBILINOGEN,URINE NEGATIVE mg/dL (<2.0)
[2018-05-01 06:20] LABS: ABSOLUTE EOSINOPHILS # (AUTO) 0.1 10^3/uL (0.0-0.6); ABSOLUTE LYMPHOCYTES (AUTO) 2.1 10^3/uL (0.5-4.7); ABSOLUTE MONOCYTES (AUTO) 0.4 10^3/uL (0.1-1.4); ABSOLUTE NEUT (AUTO) 1.9 10^3/uL (1.7-8.2); BASOPHILS % (AUTO) 0.5 % (0-2); EOSINOPHILS % (AUTO) 2.1 % (0-6); HEMATOCRIT 32.3 % (36.0-47.0); LYMPHOCYTES % (AUTO) 46.2 % (13-45); MEAN CORPUSCULAR HEMOGLOBIN 32.3 pg (27.0-33.4); MEAN CORPUSCULAR VOLUME 95 fl (80-97); MONOCYTES % (AUTO) 9.7 % (3-13); PLATELET COUNT 190 10^3/uL (150-450); RED BLOOD COUNT 3.41 10^6/uL (3.72-5.28); RED CELL DISTRIBUTION WIDTH 14.3 % (11.5-14.0); SEGMENTED NEUTROPHILS % (AUTO) 41.5 % (42-78); TOTAL CELLS COUNTED % (AUTO) 100 %; WHITE BLOOD COUNT 4.5 10^3/uL (4.0-10.5)
[2018-05-01] MEDS ORDERED: HYDROMORPHONE HCL INJ/PF 2 MG/ML AMPULE IV ONE (06:48)
[2018-05-01] MEDS ORDERED: METOCLOPRAMIDE HCL INJ/PF 10 MG/2 ML SDV IV ONE (06:48)
[2018-05-01 06:51] LABS: ANION GAP 5 (5-19); BLOOD UREA NITROGEN 36 mg/dL (7-20); CALCIUM 9.4 mg/dL (8.4-10.2); CARBON DIOXIDE 29 mmol/L (22-30); CHLORIDE 106 mmol/L (98-107); GLUCOSE 120 mg/dL (75-110); POTASSIUM 3.9 mmol/L (3.6-5.0); SODIUM 140.2 mmol/L (137-145)
[2018-05-01] MEDS ORDERED: DOXYCYCLINE HYCLATE 100 MG TABLET PO ONE (08:15)
--- NOTE | 2018-05-01 09:51 | ER Document Report ---
ED General - General Chief Complaint: Flank Pain Stated Complaint: FLANK PAIN/NAUSEA Time Seen by Provider: 05/01/18 05:11 TRAVEL OUTSIDE OF THE [place] IN LAST 30 DAYS: No - HPI Patient complains to provider of: Back pain nausea Notes: Patient presents for evaluation of a acute exacerbation of lower back pain bilaterally and nausea. Patient states that she is on pain management taking Dilaudid for pain control along with history of hypertension chronic kidney disease. Patient states she is currently on transplant list for kidney disease. Patient states she has yet to start dialysis. Patient states some dysuria nausea no vomiting no diarrhea. Patient otherwise resting healthy upon my evaluation states that she has been able take all of her previous medications. Denies traumas denies any fevers chills - Related Data Allergies/Adverse Reactions: codeine [Codeine] Allergy (Mild, Verified 03/24/18 07:26) Itching ketorolac tromethamine [From Toradol] Allergy (Unknown, Verified 03/24/18 07:26) Anxiety nalbuphine HCl [From Nubain] Allergy (Unknown, Verified 03/24/18 07:26) Anxiety ondansetron HCl [From Zofran] Allergy (Unknown, Verified 03/24/18 07:26) Itching droperidol [Droperidol] Allergy (Verified 03/24/18 07:26) reports heart racing, doesn't like how it makes her feel Past Medical History - Social History Smoking Status: Never Smoker Chew tobacco use (# tins/day): No Frequency of alcohol use: None Drug Abuse: None Family History: Reviewed & Not Pertinent, CAD, CVA, Hypertension Patient has suicidal ideation: No Patient has homicidal ideation: No - Past Medical History Cardiac Medical History: Reports: Hx Hypercholesterolemia, Hx Hypertension Denies: Hx Coronary Artery Disease, Hx Heart Attack Pulmonary Medical History: Reports: Hx Sleep Apnea Denies: Hx Asthma, Hx Bronchitis, Hx COPD, Hx Pneumonia Neurological Medical History: Reports: Hx Migraine. Denies: Hx Cerebrovascular Accident, Hx Seizures Endocrine Medical History: Reports: Hx Diabetes Mellitus Type 2 Renal/ Medical History: Reports: Hx End Stage Renal Disease, Hx Renal Insuf ficiency. Denies: Hx Peritoneal Dialysis GI Medical History: Reports: Hx Gastroesophageal Reflux Disease, Hx Irritable Bowel Musculoskeletal Medical History: Reports Hx Arthritis - right knee, Reports Hx Fibromyalgia, Reports Hx Musculoskeletal Deformity, Reports Hx Musculoskeletal Trauma Psychiatric Medical History: Reports: Hx Depression, Hx Post Traumatic Stress Disorder Past Surgical History: Reports: Hx Appendectomy, Hx Cardiac Catheterization - 3, last one 3 years ago showing no blockages, Hx Cholecystectomy, Hx Hysterectomy, Hx Orthopedic Surgery - RIGHT ANKLE SURGERY 01/2011, shoulder surgery 12/2106, Hx Thyroid Surgery, Hx Vascular Surgery - port a cath R upper chest. Denies: Hx Pacemaker - Immunizations Hx Diphtheria, Pertussis, Tetanus Vaccination: Yes - 06/17/17 Hx Pneumococcal Vaccination: 04/19/17 Review of Systems - Review of Systems Constitutional: No symptoms reported EENT: No symptoms reported Cardiovascular: No symptoms reported Respiratory: No symptoms reported Gastrointestinal: Nausea Genitourinary: Dysuria Female Genitourinary: No symptoms reported Musculoskeletal: Back pain Skin: No symptoms reported Hematologic/Lymphatic: No symptoms reported Neurological/Psychological: No symptoms reported Physical Exam - Vital signs Vitals: Temp Pulse Resp BP Pulse Ox 98.4 F 76 16 152/92 H 98 05/01/18 04:41 05/01/18 04:41 05/01/18 04:41 05/01/18 04:41 05/01/18 04:41 Interpretation: Normal - General General appearance: Appears well, Alert - HEENT Head: Normocephalic, Atraumatic Eyes: Normal Pupils: PERRL - Respiratory Respiratory status: No respiratory distress Chest status: Nontender Breath sounds: Normal Chest palpation: Normal - Cardiovascular Rhythm: Regular Heart sounds: Normal auscultation Murmur: No - Abdominal Inspection: Normal Distension: No distension Bowel sounds: Normal Tenderness: Nontender Organomegaly: No organomegaly - Back Back: Normal, Tender - Bilateral paraspinal tenderness - Extremities General upper extremity: Normal inspection, Nontender, Normal color, Normal ROM, Normal temperature General lower extremity: Normal inspection, Nontender, Normal color, Normal ROM, Normal temperature, Normal weight bearing. No: Hussein's sign - Neurological Neuro grossly intact: Yes Cognition: Normal Orientation: AAOx4 [place] Coma Scale Eye Opening: Spontaneous [place] Coma Scale Verbal: Oriented [place] Coma Scale Motor: Obeys Commands [place] Coma Scale Total: 15 Speech: Normal Motor strength normal: LUE, RUE, LLE, RLE Sensory: Normal - Psychological Associated symptoms: Normal affect, Normal mood - Skin Skin Temperature: Warm Skin Moisture: Dry Skin Color: Normal Course - Re-evaluation Re-evalutation: 05/01/18 14:12 Laboratory studies do show an increase in patient's BUN and creatinine. Urinalysis does show some signs of infection. Because of the patient's chronic kidney disease and because of the patient's allergies decision was made to place the patient on doxycycline for antibiotic coverage shows that there is no renal adjustment. Patient will follow up with her kidney specialist and her PCP. Otherwise no signs of critical pathology seen patient discharged home - Vital Signs Vital signs: Temp Pulse Resp BP Pulse Ox 98.4 F 82 18 150/95 H 97 05/01/18 10:11 05/01/18 10:11 05/01/18 10:11 05/01/18 10:01 05/01/18 09:02 - Laboratory Result Diagrams: 05/01/18 06:00 05/01/18 06:00 Laboratory results interpreted by me: 05/01/18 05/01/18 05/01/18 05:16 06:00 06:00 RBC 3.41 L Hgb 11.0 L Hct 32.3 L RDW 14.3 H Seg Neutrophils % 41.5 L Lymphocytes % 46.2 H BUN 36 H Creatinine 5.30 H Est GFR ( Amer) 10 L Est GFR (Non-Af Amer) 8 L Glucose 120 H Urine Protein 100 H Urine Glucose (UA) 50 H Ur Leukocyte Esterase MODERATE H Discharge - Discharge Clinical Impression: back pain acute on chronic Acute on chronic kidney failure Qualifiers: Acute renal failure type: unspecified Chronic kidney disease stage: stage 5, not on chronic dialysis Qualified Code(s): N17.9 - Acute kidney failure, unspecified UTI (urinary tract infection) Qualifiers: Urinary tract infection type: site unspecified Hematuria presence: without hematuria Qualified Code(s): N39.0 - Urinary tract infection, site not specified Condition: Good Disposition: HOME, SELF-CARE Instructions: Doxycycline ([facility]), Urinary Tract Infection ([facility]) Additional Instructions: Laboratory studies do show an increase in your kidney function today this could be due to your underlying illness of a urinary tract infection which I do believe is causing exacerbation of your chronic back pain. Please make sure you are drinking plenty of fluids we will start you on antibiotic called doxycycline that would not affect her kidneys I would recommend calling her vp site Wednesday so they can follow your kidney status return to the ER for any worsening symptoms continue all home medications as previously prescribed Prescriptions: Doxycycline Hyclate 100 mg PO BID #14 capsule Forms: Return to Work
[2018-05-01 10:02] VITALS: BP 150/95
== END 2018-05-01 10:13 | disposition home or self-care (01) ==
LOC: ER 04:39
DX: N39.0 Urinary tract infection, site not specified (principal); I12.0 Hypertensive chronic kidney disease with stage 5 chronic kidney disease or end stage renal disease; E11.22 Type 2 diabetes mellitus with diabetic chronic kidney disease; N18.5 Chronic kidney disease, stage 5; N17.9 Acute kidney failure, unspecified; M54.5 Low back pain; G89.29 Other chronic pain; Z79.891 Long term (current) use of opiate analgesic; Z88.5 Allergy status to narcotic agent; Z88.8 Allergy status to other drugs, medicaments and biological substances
CPT/HCPCS: 99284; 96361; 96374; 96375; 36415; 87086; 85025; 80048; 81001; J3490 ×2; J3010; J2765; J1170; J7050

== ENCOUNTER 2018-05-11 00:40 | Inpatient (IN) | payer MEDICAID ==
[2018-05-11] MEDS ORDERED: ASPIRIN 81 MG TABLET, CHEWABLE PO ONE (01:16)
--- NOTE | 2018-05-11 02:59 | RADIOLOGY REPORT (SQ) ---
EXAM DESCRIPTION: XR CHEST 1 VIEW COMPLETED DATE/TME: 05/11/2018 01:16 CLINICAL HISTORY: 52 years, Female, CP COMPARISON: 04/14/2017 chest NUMBER OF VIEWS: 1 TECHNIQUE: Portable chest LIMITATIONS: None. FINDINGS: Cardiomegaly. Osteopenia. Scarring/subsegmental atelectasis in the left lung base. [id number] catheter in place. No pneumothorax. Lungs are otherwise clear. IMPRESSION: No acute cardiopulmonary process copyright 2010 [employer]- All Rights Reserved
[2018-05-11] MEDS ORDERED: PROMETHAZINE HCL INJ 25 MG/1 ML VIAL IV ONE (03:31)
[2018-05-11] MEDS ORDERED: NITROGLYCERIN 0.4 MG/TAB 25 TAB/BOTTLE SL PRN ×2 (03:31→09:17)
--- NOTE | 2018-05-11 03:34 | ER Document Report ---
ED Medical Screen (RME) - General Chief Complaint: Chest Pain Stated Complaint: CHEST PAIN Time Seen by Provider: 05/11/18 03:31 Notes: Patient is a 52-year-old female presents to the emergency department complaining of generalized chest pain in the center of her chest. Patient states she is a chronic kidney failure patient and Dr. Castorena's office today. States she presented to Dr. Castorena's office for generalized lower back pain does not have dialysis. States she was at and vomiting. States Dr. Castorena wanted to do a 24- hour urine and sent her home. States when she got home she developed chest pain in the center of her chest which is why she presents to the emergency room. Patient continues with nausea and vomiting generalized lower back pain. GENERAL: Alert, interacts well. No acute distress. LUNGS: Clear to auscultation bilaterally, no wheezes, rales, or rhonchi. No respiratory distress. HEART: Regular rate and rhythm. No murmur ABDOMEN: Soft, non-tender. Non-distended. Bowel sounds present in all 4 quadrants. I have greeted and performed a rapid initial assessment of this patient. A comprehensive ED assessment and evaluation of the patient, analysis of test results and completion of the medical decision making process will be conducted by additional ED providers. TRAVEL OUTSIDE OF THE [place] IN LAST 30 DAYS: No - Related Data Allergies/Adverse Reactions: codeine [Codeine] Allergy (Mild, Verified 03/24/18 07:26) Itching ketorolac tromethamine [From Toradol] Allergy (Unknown, Verified 03/24/18 07:26) Anxiety nalbuphine HCl [From Nubain] Allergy (Unknown, Verified 03/24/18 07:26) Anxiety ondansetron HCl [From Zofran] Allergy (Unknown, Verified 03/24/18 07:26) Itching droperidol [Droperidol] Allergy (Verified 03/24/18 07:26) reports heart racing, doesn't like how it makes her feel Past Medical History - Social History Chew tobacco use (# tins/day): No Frequency of alcohol use: None Drug Abuse: None - Past Medical History Cardiac Medical History: Reports: Hx Hypercholesterolemia, Hx Hypertension Denies: Hx Coronary Artery Disease, Hx Heart Attack Pulmonary Medical History: Reports: Hx Sleep Apnea Denies: Hx Asthma, Hx Bronchitis, Hx COPD, Hx Pneumonia Neurological Medical History: Reports: Hx Migraine. Denies: Hx Cerebrovascular Accident, Hx Seizures Endocrine Medical History: Reports: Hx Diabetes Mellitus Type 2 Renal/ Medical History: Reports: Hx End Stage Renal Disease, Hx Renal Insufficiency. Denies: Hx Peritoneal Dialysis GI Medical History: Reports: Hx Gastroesophageal Reflux Disease, Hx Irritable Bowel Musculoskeltal Medical History: Reports Hx Arthritis - right knee, Reports Hx Fibromyalgia, Reports Hx Musculoskeletal Deformity, Reports Hx Musculoskeletal Trauma Psychiatric Medical History: Reports: Hx Depression, Hx Post Traumatic Stress Disorder Past Surgical History: Reports: Hx Appendectomy, Hx Cardiac Catheterization - 3, last one 3 years ago showing no blockages, Hx Cholecystectomy, Hx Hysterectomy, Hx Orthopedic Surgery - RIGHT ANKLE SURGERY 01/2011, shoulder surgery 12/2106, Hx Thyroid Surgery, Hx Vascular Surgery - port a cath R upper chest. Denies: Hx Pacemaker - Immunizations Hx Diphtheria, Pertussis, Tetanus Vaccination: Yes - 06/17/17 History of Influenza Vaccine for 01/2017 - 06/2017 Season: Yes Influenza Administration Date for 01/2017 - 06/2017 Season: 01/16/17 Physical Exam - Vital signs Vitals: Pulse Ox 100 05/11/18 02:47 Course - Vital Signs Vital signs: Temp Pulse Resp BP Pulse Ox 100 05/11/18 02:47
[2018-05-11] MEDS ORDERED: ACETAMINOPHEN 325 MG TABLET PO ONE (03:54)
[2018-05-11 04:07] LABS: ABSOLUTE EOSINOPHILS # (AUTO) 0.1 10^3/uL (0.0-0.6); ABSOLUTE LYMPHOCYTES (AUTO) 3.2 10^3/uL (0.5-4.7); ABSOLUTE MONOCYTES (AUTO) 0.5 10^3/uL (0.1-1.4); ABSOLUTE NEUT (AUTO) 2.3 10^3/uL (1.7-8.2); BASOPHILS % (AUTO) 0.5 % (0-2); EOSINOPHILS % (AUTO) 1.1 % (0-6); HEMATOCRIT 35.2 % (36.0-47.0); HEMOGLOBIN 11.9 g/dL (12.0-15.5); LYMPHOCYTES % (AUTO) 52.6 % (13-45); MEAN CORPUSCULAR HEMOGLOBIN 31.7 pg (27.0-33.4); MEAN CORPUSCULAR HGB CONC 33.9 g/dL (32.0-36.0); MEAN CORPUSCULAR VOLUME 94 fl (80-97); MONOCYTES % (AUTO) 8.2 % (3-13); PLATELET COUNT 197 10^3/uL (150-450); RED BLOOD COUNT 3.76 10^6/uL (3.72-5.28); RED CELL DISTRIBUTION WIDTH 13.8 % (11.5-14.0); SEGMENTED NEUTROPHILS % (AUTO) 37.6 % (42-78); TOTAL CELLS COUNTED % (AUTO) 100 %
[2018-05-11 04:13] LABS: ALANINE AMINOTRANSFERASE 12 U/L (9-52); ALBUMIN 3.4 g/dL (3.5-5.0); ALKALINE PHOSPHATASE 86 U/L (38-126); ANION GAP 10 (5-19); ASPARTATE AMINO TRANSFERASE 12 U/L (14-36); BILIRUBIN,DIRECT 0.4 mg/dL (0.0-0.4); BILIRUBIN,TOTAL 0.4 mg/dL (0.2-1.3); BLOOD UREA NITROGEN 49 mg/dL (7-20); CALCIUM 9.2 mg/dL (8.4-10.2); CARBON DIOXIDE 24 mmol/L (22-30); CHLORIDE 107 mmol/L (98-107); CREATINE KINASE 38 U/L (30-135); GLUCOSE 97 mg/dL (75-110); POTASSIUM 3.7 mmol/L (3.6-5.0); SODIUM 140.7 mmol/L (137-145); TOTAL PROTEIN 6.2 g/dL (6.3-8.2)
[2018-05-11 04:24] LABS: CREATINE KINASE MB 0.66 ng/mL (<4.55)
[2018-05-11] MEDS ORDERED: DIPHENHYDRAMINE HCL 50 MG/ML VIAL IV ONE (04:24)
[2018-05-11 04:25] LABS: TROPONIN I < 0.012 ng/mL
[2018-05-11] MEDS ORDERED: HYDROMORPHONE HCL INJ/PF 2 MG/ML AMPULE IV ONE (06:31)
[2018-05-11] MEDS ORDERED: PROMETHAZINE HCL 25 MG TABLET PO ONE (06:32)
--- NOTE | 2018-05-11 06:38 | ER Document Report ---
ED General - General Chief Complaint: Chest Pain Stated Complaint: CHEST PAIN Time Seen by Provider: 05/11/18 03:31 TRAVEL OUTSIDE OF THE [place] IN LAST 30 DAYS: No - HPI Notes: Patient is a 52-year-old female that presents to the emergency department for chief complaint of chest pain. Patient reports chest pain that started substernally and radiated to her right anterior chest at 10 PM last night. Her pain was initially intermittent and then became more constant. She received 1 sublingual nitro in the emergency room which completely resolved her pain without recurrence. She did report associated shortness of breath, diaphoresis, nausea and one episode of emesis. She states she has had a cardiac catheterization but has been about 3 years ago. She denies history of bypass or stenting. Patient states that now she is having a headache from the nitro. She also is reporting back pain. She states she has chronic back pain which she takes Dilaudid for at home, she is in pain management. She states his back pain feels similar to her pain she has had previously. It is bilateral, low, and achy in nature. Past Medical History: CKD, chronic back pain Past Surgical History: Hysterectomy, cholecystectomy, ankle fracture repair, partial thyroidectomy Social History: Denies drugs alcohol and tobacco Family History: Reviewed and noncontributory for presenting illness Allergies: Reviewed, see documented allergy list. REVIEW OF SYSTEMS: CONSTITUTIONAL : No fever No chills No diaphoresis No recent illness EENT: No vision changes No congestion No sore throat CARDIOVASCULAR: chest pain No palpitations RESPIRATORY: shortness of breath No cough No difficulty breathing GASTROINTESTINAL: No abdominal pain nausea vomiting No diarrhea GENITOURINARY: No dysuria No hematuria No difficulty urinating MUSCULOSKELETAL: back pain No leg pain No arm pain SKIN: No rashes No lesions LYMPHATIC: No swollen, enlarged glands. NEUROLOGICAL: No lightheadedness headache No weakness No paresthesias PSYCHIATRIC: No anxiety No depression PHYSICAL EXAMINATION: Vital signs reviewed, nursing noted reviewed. GENERAL: Well-appearing, obese and in no acute distress. HEAD: Atraumatic, normocephalic. EYES: Eyes appear normal, extraocular movements intact, sclera anicteric, conjunctiva are normal. ENT: nares patent, oropharynx clear without exudates. Moist mucous membranes. NECK: Normal range of motion, supple without lymphadenopathy LUNGS: Breath sounds clear to auscultation bilaterally and equal. No wheezes rales or rhonchi. HEART: Regular rate and rhythm without murmurs, +2/4 bilateral radial pulses ABDOMEN: Soft, nontender, normoactive bowel sounds. No rebound, guarding, or rigidity. No masses appreciated. EXTREMITIES: Nontender, good range of motion, no pitting or edema. Back: Bilateral lumbar paraspinal tenderness, No midline spinal tenderness NEUROLOGICAL: No focal neurological deficits. Moves all extremities spo ntaneously Motor and sensory grossly intact on exam. PSYCH: Normal mood, normal affect. SKIN: Warm, Dry, normal turgor, no rashes or lesions noted on exposed skin - Related Data Allergies/Adverse Reactions: codeine [Codeine] Allergy (Mild, Verified 03/24/18 07:26) Itching ketorolac tromethamine [From Toradol] Allergy (Unknown, Verified 03/24/18 07:26) Anxiety nalbuphine HCl [From Nubain] Allergy (Unknown, Verified 03/24/18 07:26) Anxiety ondansetron HCl [From Zofran] Allergy (Unknown, Verified 03/24/18 07:26) Itching droperidol [Droperidol] Allergy (Verified 03/24/18 07:26) reports heart racing, doesn't like how it makes her feel Past Medical History - Social History Smoking Status: Never Smoker Chew tobacco use (# tins/day): No Frequency of alcohol use: None Drug Abuse: None Family History: Reviewed & Not Pertinent, CAD, CVA, Hypertension Patient has suicidal ideation: No Patient has homicidal ideation: No - Past Medical History Cardiac Medical History: Reports: Hx Hypercholesterolemia, Hx Hypertension Denies: Hx Coronary Artery Disease, Hx Heart Attack Pulmonary Medical History: Reports: Hx Sleep Apnea Denies: Hx Asthma, Hx Bronchitis, Hx COPD, Hx Pneumonia Neurological Medical History: Reports: Hx Migraine. Denies: Hx Cerebrovascular Accident, Hx Seizures Endocrine Medical History: Reports: Hx Diabetes Mellitus Type 2 Renal/ Medical History: Reports: Hx End Stage Renal Disease, Hx Renal Insufficiency. Denies: Hx Peritoneal Dialysis GI Medical History: Reports: Hx Gastroesophageal Reflux Disease, Hx Irritable Bowel Musculoskeletal Medical History: Reports Hx Arthritis - right knee, Reports Hx Fibromyalgia, Reports Hx Musculoskeletal Deformity, Reports Hx Musculoskeletal Trauma Psychiatric Medical History: Reports: Hx Depression, Hx Post Traumatic Stress Disorder Past Surgical History: Reports: Hx Appendectomy, Hx Cardiac Catheterization - 3, last one 3 years ago showing no blockages, Hx Cholecystectomy, Hx Hysterectomy, Hx Orthopedic Surgery - RIGHT ANKLE SURGERY 01/2011, shoulder surgery 12/2106, Hx Thyroid Surgery, Hx Vascular Surgery - port a cath R upper chest. Denies: Hx Pacemaker - Immunizations Hx Diphtheria, Pertussis, Tetanus Vaccination: Yes - 06/17/17 Hx Pneumococcal Vaccination: 04/19/17 Physical Exam - Vital signs Vitals: Pulse Ox 100 05/11/18 02:47 Course - Re-evaluation Re-evalutation: 05/11/18 06:36 Vitals reviewed. Nursing notes reviewed. Patient was given a dose of Dilaudid and Phenergan for symptomatic management, these are home medications for her. Patient has a negative troponin. Her EKG is unchanged from 10/11/17. Patient's lab work does show renal insufficiency which is chronic for her. She sees Dr. Castorena and states that they have been discussing starting her on dialysis. She has no electrolyte derangements or vascular congestion to suggest she is requiring emergent dialysis. Patient will be admitted to the hospital for telemetry monitoring and trending of her troponins. Case discussed with admitting physician Dr. Weathers. Patient in agreement with this plan. Laboratory 05/11/18 05/11/18 05/11/18 03:45 03:45 03:45 WBC 6.0 RBC 3.76 Hgb 11.9 L Hct 35.2 L MCV 94 MCH 31.7 MCHC 33.9 RDW 13.8 Plt Count 197 Seg Neutrophils % 37.6 L Lymphocytes % 52.6 H Monocytes % 8.2 Eosinophils % 1.1 Basophils % 0.5 Absolute Neutrophils 2.3 Absolute Lymphocytes 3.2 Absolute Monocytes 0.5 Absolute Eosinophils 0.1 Absolute Basophils 0.0 Sodium 140.7 Potassium 3.7 Chloride 107 Carbon Dioxide 24 Anion Gap 10 BUN 49 H Creatinine 4.73 H Est GFR ( Amer) 12 L Est GFR (Non-Af Amer) 10 L Glucose 97 Calcium 9.2 Total Bilirubin 0.4 Direct Bilirubin 0.4 Neonat Total Bilirubin Not Reportable Neonat Direct Bilirubin Not Reportable Neonat Indirect Bili Not Reportable AST 12 L ALT 12 Alkaline Phosphatase 86 Creatine Kinase 38 CK-MB (CK-2) 0.66 Troponin I < 0.012 Total Protein 6.2 L Albumin 3.4 L Chest X-Ray 05/11/18 01:16 IMPRESSION: No acute cardiopulmonary process copyright 2011 [employer]- All Rights Reserved - Vital Signs Vital signs: Temp Pulse Resp BP Pulse Ox 100 05/11/18 02:47 - Laboratory Result Diagrams: 05/11/18 03:45 05/11/18 03:45 Laboratory results interpreted by me: 05/11/18 05/11/18 03:45 03:45 Hgb 11.9 L Hct 35.2 L Seg Neutrophils % 37.6 L Lymphocytes % 52.6 H BUN 49 H Creatinine 4.73 H Est GFR ( Amer) 12 L Est GFR (Non-Af Amer) 10 L AST 12 L Total Protein 6.2 L Albumin 3.4 L Discharge - Discharge Clinical Impression: Chest pain Qualifiers: Chest pain type: unspecified Qualified Code(s): R07.9 - Chest pain, unspecified Condition: Stable Disposition: ADMITTED OBSERVATION Admitting Provider: Hospitalist Unit Admitted: Telemetry
--- NOTE | 2018-05-11 07:24 | EKG REPORT ---
SEVERITY:- ABNORMAL ECG - SINUS RHYTHM LEFT VENTRICULAR HYPERTROPHY : Confirmed by: Abigail Mandel MD 11-May-2018 07:24:33
[2018-05-11] MEDS ORDERED: METHOCARBAMOL 750 MG TABLET PO PRN (09:17)
[2018-05-11] MEDS ORDERED: ACETAMINOPHEN 325 MG TABLET PO PRN (09:25)
[2018-05-11] MEDS ORDERED: (PENDING PHARMACY ID) (Lisinopril [Zestril] 10 MG) PO SCH (10:00)
[2018-05-11] MEDS ORDERED: (PENDING PHARMACY ID) (Aripiprazole [Abilify 15 Mg Tablet] 15 MG) PO SCH (10:00)
[2018-05-11] MEDS ORDERED: CALCITRIOL 1 MCG PO SCH (10:00)
[2018-05-11] MEDS ORDERED: (PENDING PHARMACY ID) (Escitalopram Oxalate [Lexapro] 40 MG) PO SCH (10:00)
[2018-05-11] MEDS: HYDROMORPHONE HCL 2 MG TABLET PO PRN ×2 (10:52→20:18)
[2018-05-11] MEDS: FUROSEMIDE 20 MG TABLET PO SCH (10:53)
[2018-05-11] MEDS: ENOXAPARIN SODIUM INJ 30 MG/0.3 ML DISP.SYRIN SUBCUT SCH (10:53)
[2018-05-11] MEDS: DIVALPROEX SODIUM 500 MG TAB.SR.24H PO SCH ×2 (10:53→21:32)
[2018-05-11] MEDS ORDERED: (PENDING PHARMACY ID) (Metoclopramide Hcl [Reglan] 2.5 MG) PO SCH (11:00)
[2018-05-11] MEDS: NITROGLYCERIN 2% OINTMENT 1 GM PACKET TP SCH ×2 (11:40→18:08)
--- NOTE | 2018-05-11 11:48 | PDOC H&P ---
History of Present Illness Admission Date/PCP: 05/11/18 06:39 Gudelia Mosley Patient complains of: Chest pain History of Present Illness: DAREN ROSS is a 52 year old female with a very complex medical history. This includes end-stage renal disease likely hypertensive nephropathy. Difficult to control hypertension. Posttraumatic stress disorder. She has migraine headaches and diet controlled diabetes mellitus type 2. She has had recurrent chest pain and has had cardiac catheterizations x2. She did not require any stenting or angioplasty. She has chronic nausea and vomiting as well as chronic kidney pain. She was seen by Dr. Castorena yesterday and he made an adjustment in her medications. She is a patient at the pain management clinic as well. She has been having her chronic bilateral kidney pain with chronic nausea and vomiting. At approximately 10:00 last night she began to have substernal chest pain. She characterizes it as sharp. It radiated to her jaw and under her right breast. She reports tingling in both hands. She felt sweaty and reported nausea and vomiting but this is a chronic problem for her so it is difficult to know if it was specifically related to the chest pain. She did take sublingual nitroglycerin x1 at home with no relief. She had a second nitroglycerin tablet in the emergency department and that helped but her chest pain was back. She characterized the initial pain as a level 8. The second sublingual nitroglycerin brought it down to a 5 and after that it was back to a 7. The only downside to the nitroglycerin is that it worsens her chronic headaches. She was referred to the hospitalist service for admission She states that she is also in the process of considering dialysis. They were unable to insert a dialysis catheter. She does not have a fistula and she will likely start with peritoneal dialysis. Past Medical History Cardiac Medical History: Reports: Hyperlipidema, Hypertension Denies: Coronary Artery Disease, Myocardial Infarction Pulmonary Medical History: Reports: Sleep Apnea Denies: Asthma, Bronchitis, Chronic Obstructive Pulmonary Disease (COPD), Pneumonia EENT Medical History: Reports: Eyes - Occasional blurry vision usually associated with migraine Denies: Ears, Nose Neurological Medical History: Reports: Migraine Denies: Ischemic CVA, Seizures Endocrine Medical History: Reports: Diabetes Mellitus Type 2 Renal/ Medical History: Reports: End Stage Renal Disease Malignancy Medical History: Reports: None GI Medical History: Reports: Gastroesophageal Reflux Disease, Other - Possible gastroparesis Musculoskeltal Medical History: Reports: Arthritis - right knee, Fibromyalgia Skin Medical History: Denies: Eczema, Psoriasis Psychiatric Medical History: Reports: Depression, Post Traumatic Stress Disorder Traumatic Medical History: Reports: None Hematology: Reports: Anemia Infectious Medical History: Reports: None Past Surgical History Past Surgical History: Reports: Appendectomy, Cardiac Catheterization - 3, last one 3 years ago showing no blockages, Cholecystectomy, Hysterectomy, Orthopedic Surgery - RIGHT ANKLE SURGERY 01/2011, shoulder surgery 12/2106, Thyroidectomy, Vascular Surgery - port a cath R upper chest Denies: Pacemaker Social History Information Source: Patient Lives with: Family Smoking Status: Never Smoker Frequency of Alcohol Use: None Hx Recreational Drug Use: No Drugs: None Hx Prescription Drug Abuse: No - Advance Directive Resuscitation Status: Full Code Surrogate healthcare decision maker:: Her will be the designated decision maker. Family History Family History: CAD, CVA, Hypertension Parental Family History Reviewed: Yes Children Family History Reviewed: Yes - Son with cerebral palsy Sibling(s) Family History Reviewed.: Yes Medication/Allergy Home Medications: Aripiprazole [Abilify 15 mg Tablet] 15 mg PO DAILY 03/14/17 Clonidine HCl [Catapres 0.3 mg Tablet] 0.3 mg PO Q8 03/14/17 Divalproex Sodium [Divalproex Sodium ER] 500 mg PO Q12 03/14/17 Escitalopram Oxalate [Lexapro] 20 mg PO DAILY 03/14/17 Eszopiclone [Lunesta] 3 mg PO QHS 03/14/17 Furosemide [Lasix 40 mg Tablet] 40 mg PO DAILY 03/14/17 Gabapentin [Neurontin 300 mg Capsule] 300 mg PO Q12 03/14/17 Lisinopril [Zestril] 10 mg PO Q12 03/14/17 Methocarbamol [Robaxin 750 mg Tablet] 750 mg PO Q6HP PRN 03/14/17 Calcitriol 1 mcg PO DAILY 07/13/17 Metoclopramide HCl [Reglan] 10 mg PO ACHS 07/13/17 Hydromorphone HCl [Dilaudid 2 mg Tablet] 4 mg PO Q6HP PRN 05/11/18 Nitroglycerin [Nitrostat 0.4 mg (1/150 Gr) Tabs 25/Bottle] 1 tab SL Q5MP PRN 05/11/18 Trazodone HCl [Desyrel 50 mg Tablet] 150 mg PO QHS 05/11/18 Allergies/Adverse Reactions: codeine [Codeine] Allergy (Mild, Verified 03/24/18 07:26) Itching ketorolac tromethamine [From Toradol] Allergy (Unknown, Verified 03/24/18 07:26) Anxiety nalbuphine HCl [From Nubain] Allergy (Unknown, Verified 03/24/18 07:26) Anxiety ondansetron HCl [From Zofran] Allergy (Unknown, Verified 03/24/18 07:26) Itching droperidol [Droperidol] Allergy (Verified 03/24/18 07:26) reports heart racing, doesn't like how it makes her feel Physical Exam Vital Signs: Temp Pulse Resp BP Pulse Ox 100 05/11/18 02:47 Intake & Output 05/10/18 05/11/18 05/12/18 06:59 06:59 06:59 Weight 89.811 kg General appearance: PRESENT: cooperative, mild distress - Mild to moderate distress, morbidly obese - BMI 36.2, well-developed Head exam: PRESENT: atraumatic, normocephalic Eye exam: PRESENT: conjunctiva pale, EOMI. ABSENT: scleral icterus Ear exam: PRESENT: normal external ear exam Mouth exam: PRESENT: dry mucosa, tongue midline Neck exam: PRESENT: other - Scar from partial thyroidectomy. ABSENT: carotid bruit, lymphadenopathy Respiratory exam: PRESENT: clear to auscultation salazar, rales, rhonchi, symmetrical, unlabored, wheezes. ABSENT: accessory muscle use Cardiovascular exam: PRESENT: RRR, +S1, +S2 GI/Abdominal exam: PRESENT: normal bowel sounds, soft. ABSENT: distended, tenderness Rectal exam: PRESENT: deferred Gentrourinary exam: ABSENT: indwelling catheter Extremities exam: ABSENT: pedal edema Musculoskeletal exam: PRESENT: normal inspection Neurological exam: PRESENT: alert, awake, oriented to person, oriented to place, oriented to time, oriented to situation Psychiatric exam: PRESENT: flat affect. ABSENT: agitated, anxious Focused psych exam: ABSENT: restlessness Skin exam: PRESENT: dry, normal color, warm Results Laboratory Results: 05/11/18 03:45 05/11/18 03:45 05/11/18 05/11/18 03:45 03:45 WBC 6.0 RBC 3.76 Hgb 11.9 L Hct 35.2 L MCV 94 MCH 31.7 MCHC 33.9 RDW 13.8 Plt Count 197 Seg Neutrophils % 37.6 L Lymphocytes % 52.6 H Monocytes % 8.2 Eosinophils % 1.1 Basophils % 0.5 Absolute Neutrophils 2.3 Absolute Lymphocytes 3.2 Absolute Monocytes 0.5 Absolute Eosinophils 0.1 Absolute Basophils 0.0 Sodium 140.7 Potassium 3.7 Chloride 107 Carbon Dioxide 24 Anion Gap 10 BUN 49 H Creatinine 4.73 H Est GFR ( Amer) 12 L Est GFR (Non-Af Amer) 10 L Glucose 97 Calcium 9.2 Total Bilirubin 0.4 AST 12 L ALT 12 Alkaline Phosphatase 86 Total Protein 6.2 L Albumin 3.4 L 05/11/18 05/11/18 05/11/18 03:45 03:45 06:45 Creatine Kinase 38 CK-MB (CK-2) 0.66 Troponin I < 0.012 < 0.012 Impressions: Chest X-Ray 05/11/18 01:16 IMPRESSION: No acute cardiopulmonary process copyright 2011 [employer]- All Rights Reserved Assessment & Plan - Diagnosis (1) Chest pain Qualifiers: Chest pain type: precordial pain Qualified Code(s): R07.2 - Precordial pain Is this a current diagnosis for this admission?: Yes Plan: The patient has had 2 cardiac catheterizations at [facility]. She reports that none have resulted in angioplasty or stent placement. The most recent one was several years ago. Thus far her cardiac enzymes are negative. I will likely order a stress test as the Cardiolite does not affect renal function. I will suggest that he follow-up with cardiology as an outpatient. With her history of hypertension and diabetes she is surprisingly not on aspirin therapy or statin therapy. Because she did get some relief from her second sublingual nitroglycerin tablet I did add nitroglycerin paste. If this significantly worsens headaches then we may need to discontinue. If her cardiac enzymes are negative then we will discontinue this as well. (2) Hypertensive urgency Is this a current diagnosis for this admission?: Yes Plan: The patient reports her difficult to control hypertension. We will continue her clonidine 0.3 mg 3 times a day, lisinopril 10 mg twice daily as well as the newly added amlodipine 2.5 mg daily. She also takes Lasix 20 mg currently on Wednesday and Wednesday. (3) Chronic kidney disease, stage V Is this a current diagnosis for this admission?: Yes Plan: Dr. Castorena will be seeing the patient. He was going to obtain a 24-hour urine for protein, creatinine and creatinine clearance. I have ordered this for him. The patient was also talking about the possibility of initiating peritoneal dialysis. Dr. Castorena had not made a final decision on this matter yet. The patient did see Dr. Castorena yesterday. He did add amlodipine to her antihypertensive regimen. (4) Posttraumatic stress disorder Is this a current diagnosis for this admission?: Yes Plan: We will continue her multiple medications including Lexapro, Depakote, Abilify and she is on the clonidine for blood pressure which may help with anxiety. (5) Migraine headache Qualifiers: Migraine type: unspecified Status migrainosus presence: without status migrainosus Intractability: not intractable Qualified Code(s): G43.909 - Migraine, unspecified, not intractable, without status migrainosus Is this a current diagnosis for this admission?: Yes Plan: She is established at the pain management clinic. She reports Dilaudid 4 mg 4 times a day as well as Phenergan 50 mg 4 times a day. With the use of nitroglycerin her headaches may likely be worse. If she exhibits significant breakthrough pain we may need to adjust her medications. (6) Chronic pain syndrome Is this a current diagnosis for this admission?: Yes Plan: Continue current medication regimen. Follow-up with pain management clinic after discharge. (7) Obesity (BMI 30-39.9) Is this a current diagnosis for this admission?: Yes Plan: The patient reports that with her chronic nausea and vomiting her appetite has been poor. She believes that she has lost 8 or 9 pounds over the last month. - Time Time Spent: Greater than 70 Minutes Medications reviewed and adjusted accordingly: Yes Anticipated discharge: Home - Inpatient Certification Based on my medical assessment, after consideration of the patient's comorbidit ies, presenting symptoms, or acuity I expect that the services needed warrant INPATIENT care.: Yes I certify that my determination is in accordance with my understanding of Me rush's requirements for reasonable and necessary INPATIENT services [42 CFR 412.3e].: Yes Medical Necessity: Failure to Improve With Outpatient Therapy, Significant Comorbidiites Make Outpatient Treatment Too Risky, Need For Continuous Telemetry Monitoring, Need for Pain Control Post Hospital Care: 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
[2018-05-11 12:05] LABS: CREATINE KINASE MB 0.41 ng/mL (<4.55)
[2018-05-11 12:09] LABS: TROPONIN I < 0.012 ng/mL
[2018-05-11] MEDS: ESCITALOPRAM OXALATE 10 MG TABLET PO SCH (12:29)
[2018-05-11] MEDS: ARIPIPRAZOLE 5 MG TABLET PO SCH (12:30)
[2018-05-11] MEDS: LISINOPRIL 10 MG TABLET PO SCH ×2 (12:30→21:28)
[2018-05-11] MEDS: CALCITRIOL 0.25 MCG CAPSULE PO SCH (12:30)
[2018-05-11 13:07] LABS: APPEARANCE,URINE CLEAR; BILIRUBIN,URINE NEGATIVE (NEGATIVE); COLOR,URINE STRAW; GLUCOSE, URINE 50 mg/dL (NEGATIVE); KETONES,URINE NEGATIVE (NEGATIVE); LEUKOCYTE ESTERASE,URINE SMALL (NEGATIVE); NITRITE,URINE NEGATIVE (NEGATIVE); PROTEIN,URINE 100 mg/dL (NEGATIVE); URINE SPECIFIC GRAVITY 1.009; UROBILINOGEN,URINE NEGATIVE mg/dL (<2.0)
[2018-05-11] MEDS: CLONIDINE HCL 0.1 MG TABLET PO SCH ×2 (13:41→21:31)
[2018-05-11] MEDS ORDERED: (PENDING PHARMACY ID) (Clonidine Hcl [Catapres 0.3 Mg Tablet] 0.3 MG) PO SCH (14:00)
[2018-05-11] MEDS: MORPHINE SULFATE 10 MG/ML INJ IV PRN (16:37)
[2018-05-11] MEDS: PROMETHAZINE HCL 25 MG TABLET PO PRN (16:37)
[2018-05-11 18:56] LABS: CREATINE KINASE MB 0.36 ng/mL (<4.55)
[2018-05-11 18:57] LABS: TROPONIN I < 0.012 ng/mL
[2018-05-11] MEDS: TRAZODONE HCL 50 MG TABLET PO SCH (21:32)
[2018-05-11] MEDS: ZOLPIDEM TARTRATE 5 MG TABLET PO SCH (21:32)
[2018-05-11] MEDS ORDERED: AMLODIPINE BESYLATE 2.5 MG TABLET PO SCH (22:00)
[2018-05-12] MEDS: NITROGLYCERIN 2% OINTMENT 1 GM PACKET TP SCH ×4 (00:08→17:34)
[2018-05-12] MEDS: MORPHINE SULFATE 10 MG/ML INJ IV PRN ×2 (02:56→11:19)
[2018-05-12] MEDS: PROMETHAZINE HCL 25 MG TABLET PO PRN (02:57)
[2018-05-12] MEDS: CLONIDINE HCL 0.1 MG TABLET PO SCH ×3 (05:24→21:58)
[2018-05-12 06:11] LABS: ABSOLUTE EOSINOPHILS # (AUTO) 0.1 10^3/uL (0.0-0.6); ABSOLUTE LYMPHOCYTES (AUTO) 2.5 10^3/uL (0.5-4.7); ABSOLUTE MONOCYTES (AUTO) 0.3 10^3/uL (0.1-1.4); ABSOLUTE NEUT (AUTO) 1.6 10^3/uL (1.7-8.2); EOSINOPHILS % (AUTO) 2.1 % (0-6); HEMATOCRIT 33.5 % (36.0-47.0); HEMOGLOBIN 11.4 g/dL (12.0-15.5); LYMPHOCYTES % (AUTO) 54.4 % (13-45); MEAN CORPUSCULAR HEMOGLOBIN 31.7 pg (27.0-33.4); MEAN CORPUSCULAR HGB CONC 34.1 g/dL (32.0-36.0); MEAN CORPUSCULAR VOLUME 93 fl (80-97); MONOCYTES % (AUTO) 7.7 % (3-13); PLATELET COUNT 172 10^3/uL (150-450); SEGMENTED NEUTROPHILS % (AUTO) 34.8 % (42-78); TOTAL CELLS COUNTED % (AUTO) 100 %; WHITE BLOOD COUNT 4.5 10^3/uL (4.0-10.5)
[2018-05-12] MEDS ORDERED: ACETAMINOPHEN 325 MG TABLET PO PRN (07:23)
[2018-05-12] MEDS: METOCLOPRAMIDE HCL ORAL SOLN 10 MG/10 ML UDCUP PO SCH ×4 (08:08→21:59)
[2018-05-12] MEDS: HYDROMORPHONE HCL 2 MG TABLET PO PRN ×2 (08:09→16:21)
[2018-05-12] MEDS: LISINOPRIL 10 MG TABLET PO SCH ×2 (09:53→21:59)
[2018-05-12] MEDS: ARIPIPRAZOLE 5 MG TABLET PO SCH (09:53)
[2018-05-12] MEDS: ESCITALOPRAM OXALATE 10 MG TABLET PO SCH (09:53)
[2018-05-12] MEDS: DIVALPROEX SODIUM 500 MG TAB.SR.24H PO SCH ×2 (09:53→21:58)
[2018-05-12] MEDS: CALCITRIOL 0.25 MCG CAPSULE PO SCH (09:54)
[2018-05-12] MEDS: ENOXAPARIN SODIUM INJ 30 MG/0.3 ML DISP.SYRIN SUBCUT SCH (09:54)
--- NOTE | 2018-05-12 10:23 | PDOC PROGRESS REPORT ---
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 05/11/2017 she presented to ED complaining of persistent chest pain, substernal, radiating to her jaw and right breast. Worsened with movement and coughing. Troponins less than 0.012 x 3. EKG sinus rhythm with left ventricular hypertrophy. And was admitted for chest pain workup. Cardiac a stress of has been planned however it was delayed due to ongoing chest pain. 05/12/2018. No acute events overnight. Patient still complaining constant on and off chest pain. She is explaining to me that chest pain is substernal, pressure-like, last for several hours, 9 out of 10 in severity, worsened by coughing, breathing, and movement. Nonradiating. Patient has history of chronic opiate use, takes Dilaudid at home. Patient is scheduled to have a stress test done however she is been having frequent chest pain and it has been delayed for tomorrow. Patient also pending pain management consult. Nephrology has been consulted patient is not going to receive any hemodialysis, the patient. A 24-hour urine collection has been ordered by cardiology clinical consultant. Reason For Visit: CHEST PRESSURE,HYPERTENSION,ESRD,PTSD,MIGRAINE Physical Exam Vital Signs: Temp Pulse Resp BP Pulse Ox 98.1 F 63 16 123/80 97 05/12/18 07:06 05/12/18 07:06 05/12/18 07:06 05/12/18 07:06 05/12/18 07:06 Intake & Output 05/11/18 05/12/18 05/13/18 06:59 06:59 06:59 Intake Total 1154 Balance 1154 Weight 89.811 kg 88.3 kg General appearance: PRESENT: no acute distress, well-developed, well-nourished Head exam: PRESENT: atraumatic, normocephalic Neck exam: ABSENT: carotid bruit, JVD, lymphadenopathy, thyromegaly Respiratory exam: PRESENT: clear to auscultation salazar. ABSENT: rales, rhonchi, wheezes Cardiovascular exam: PRESENT: RRR, other - Chest pain reproduced by breathing and movement.. ABSENT: diastolic murmur, rubs, systolic murmur GI/Abdominal exam: PRESENT: normal bowel sounds, soft. ABSENT: distended, guarding, mass, organolmegaly, rebound, tenderness Extremities exam: PRESENT: full ROM. ABSENT: calf tenderness, clubbing, pedal edema Neurological exam: PRESENT: alert, awake, oriented to person, oriented to place, oriented to time, oriented to situation, CN II-XII grossly intact. ABSENT: motor sensory deficit Skin exam: PRESENT: dry, intact, warm. ABSENT: cyanosis, rash Results Laboratory Results: 05/12/18 05:45 05/11/18 05/12/18 12:36 05:45 WBC 4.5 RBC 3.60 L Hgb 11.4 L Hct 33.5 L MCV 93 MCH 31.7 MCHC 34.1 RDW 14.0 Plt Count 172 Seg Neutrophils % 34.8 L Lymphocytes % 54.4 H Monocytes % 7.7 Eosinophils % 2.1 Basophils % 1.0 Absolute Neutrophils 1.6 L Absolute Lymphocytes 2.5 Absolute Monocytes 0.3 Absolute Eosinophils 0.1 Absolute Basophils 0.0 Urine Color STRAW Urine Appearance CLEAR Urine pH 5.0 Ur Specific [place] 1.009 Urine Protein 100 H Urine Glucose (UA) 50 H Urine Ketones NEGATIVE Urine Blood NEGATIVE Urine Nitrite NEGATIVE Ur Leukocyte Esterase SMALL H Urine WBC (Auto) 6 Urine RBC (Auto) 0 05/11/18 05/11/18 05/11/18 03:45 03:45 06:45 Creatine Kinase 38 CK-MB (CK-2) 0.66 Troponin I < 0.012 < 0.012 05/11/18 05/11/18 05/11/18 11:26 11:26 18:00 Creatine Kinase 27 L 26 L CK-MB (CK-2) 0.41 Troponin I < 0.012 05/11/18 18:00 Creatine Kinase CK-MB (CK-2) 0.36 Troponin I < 0.012 Impressions: Chest X-Ray 05/11/18 01:16 IMPRESSION: No acute cardiopulmonary process copyright 2011 [employer]- All Rights Reserved Assessment & Plan - Diagnosis (1) Chest pain Qualifiers: Chest pain type: precordial pain Qualified Code(s): R07.2 - Precordial pain Is this a current diagnosis for this admission?: Yes Plan: Likely noncardiac. Could be musculoskeletal exacerbated by anxiety and stress. Patient has had 2 cardiac catheterization in the past which has both been negative. EEG on admission sinus rhythm. Troponins negative x3. Patient is pending a cardiac a stress test however it has been delayed due to ongoing persistent chest pain. Cardiology on board. (2) Chronic pain syndrome Is this a current diagnosis for this admission?: Yes Plan: History of chronic pain, patient has been seen by pain management as outpatient. Chronic opiate use. Takes Dilaudid at home. We will continue Robaxin, acetaminophen, Dilaudid, morphine. Pain management consult pending. (3) Hypertension Is this a current diagnosis for this admission?: Yes Plan: Not optimized. Increase amlodipine to 5 mg p.o. daily. Continue lisinopril 10 mg. Adjust meds as needed. (4) Migraine headache Qualifiers: Migraine type: unspecified Status migrainosus presence: without status migrainosus Intractability: not intractable Qualified Code(s): G43.909 - Migraine, unspecified, not intractable, without status migrainosus Is this a current diagnosis for this admission?: Yes Plan: Restart home meds. (5) Obesity (BMI 30-39.9) Is this a current diagnosis for this admission?: Yes Plan: Diet and lifestyle modification. (6) Renal osteodystrophy Is this a current diagnosis for this admission?: Yes Plan: Continue current meds. (7) Chronic kidney disease, stage V Is this a current diagnosis for this admission?: Yes Plan: Likely due to chronic hypertension. No uremic symptoms. No sign of volume overload. Nonoliguric. Nephrology on board. Pending 24-hour urine creatinine clearance by nephrology. Does not need hemodialysis at this point as per nephrology note.
[2018-05-12] MEDS ORDERED: BENZOCAINE/MENTHOL SORE THROAT LOZENGE BUCCAL PRN (10:28)
--- NOTE | 2018-05-12 11:14 | PDOC CONSULTATION ---
Consultation Consult Date: 05/12/18 Consult reason:: CKD 5. 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 Also was made worse with movements.. She has had recurrent chest pain and has had cardiac catheterizations x2 in the past and apparently negative. She did not require any stenting or angioplasty. She admits to being under a lot of stress and anxiety because she is reaching ESRD status and would be initiating peritoneal dialysis in the near future. She has chronic nausea and vomiting. She has had issues with chronic pain and is a patient at the pain management clinic as well. She is on low-dose of Reglan that apparently has made her nausea vomiting better. She does not recall having a gastric emptying scan in the past even though I believe it was done. Currently she is having no chest pain as long as she is immobile. Labs and medications were reviewed with her. Past Medical History Cardiac Medical History: Reports: Hyperlipidemia, Hypertension-primary Denies: Coronary Artery Disease, Myocardial Infarction Pulmonary Medical History: Reports: Sleep Apnea Denies: Asthma, Bronchitis, Chronic Obstructive Pulmonary Disease (COPD), Pneumonia EENT Medical History: Reports: Eyes - Occasional blurry vision usually associated with migraine Denies: Ears, Nose Neurological Medical History: Reports: Migraine Denies: Ischemic CVA, Seizures Endocrine Medical History: Reports: Diabetes Mellitus Type 2 Complications of Diabetes: Reports: None Renal/ Medical History: Reports: Chronic Kidney Disease Stage IV, Secondary Hyperparathyroidism Malignancy Medical History: Reports: None GI Medical History: Reports: Gastroesophageal Reflux Disease, Other - Possible gastroparesis Musculoskeltal Medical History: Reports: Arthritis - right knee, Fibromyalgia Skin Medical History: Denies: Eczema, Psoriasis Psychiatric Medical History: Reports: Depression, Post Traumatic Stress Disorder Traumatic Medical History: Reports: None Infectious Medical History: Reports: None Past Surgical History Past Surgical History: Reports: Appendectomy, Cardiac Catheterization - 3, last one 3 years ago showing no blockages, Cholecystectomy, Hysterectomy, Orthopedic Surgery - RIGHT ANKLE SURGERY 01/2011, shoulder surgery 12/2106, Thyroidectomy, Vascular Surgery - port a cath R upper chest Denies: Pacemaker Social History Lives with: Family Smoking Status: Never Smoker Frequency of Alcohol Use: None Hx Recreational Drug Use: No Drugs: None Hx Prescription Drug Abuse: No - Advance Directive Resuscitation Status: Full Code Family History Parental Family History Reviewed: Yes - Negative for ESRD. Children Family History Reviewed: No Sibling(s) Family History Reviewed.: No Medication/Allergy Home Medications: Aripiprazole [Abilify 15 mg Tablet] 15 mg PO DAILY 03/14/17 Clonidine HCl [Catapres 0.3 mg Tablet] 0.3 mg PO Q8 03/14/17 Divalproex Sodium [Divalproex Sodium ER] 500 mg PO Q12 03/14/17 Escitalopram Oxalate [Lexapro] 20 mg PO DAILY 03/14/17 Eszopiclone [Lunesta] 3 mg PO QHS 03/14/17 Furosemide [Lasix 40 mg Tablet] 20 mg PO MOFR@0800 03/14/17 Gabapentin [Neurontin 300 mg Capsule] 300 mg PO Q12 03/14/17 Lisinopril [Zestril] 10 mg PO Q12 03/14/17 Methocarbamol [Robaxin 750 mg Tablet] 750 mg PO Q6HP PRN 03/14/17 Calcitriol 1.5 mcg PO MOWEFR@1000 07/13/17 Metoclopramide HCl [Reglan] 10 mg PO BID 07/13/17 Hydromorphone HCl [Dilaudid 2 mg Tablet] 4 mg PO Q6HP PRN 05/11/18 Nitroglycerin [Nitrostat 0.4 mg (1/150 Gr) Tabs 25/Bottle] 1 tab SL Q5MP PRN 05/11/18 Promethazine HCl [Phenergan 25 mg Tablet] 50 mg PO Q6HP PRN 05/11/18 Allergies/Adverse Reactions: codeine [Codeine] Allergy (Mild, Verified 03/24/18 07:26) Itching ketorolac tromethamine [From Toradol] Allergy (Unknown, Verified 03/24/18 07:26) Anxiety nalbuphine HCl [From Nubain] Allergy (Unknown, Verified 03/24/18 07:26) Anxiety ondansetron HCl [From Zofran] Allergy (Unknown, Verified 03/24/18 07:26) Itching droperidol [Droperidol] Allergy (Verified 03/24/18 07:26) reports heart racing, doesn't like how it makes her feel Review of Systems Constitutional: PRESENT: anorexia, fatigue, headache(s). ABSENT: chills, fever(s), night sweats, weakness Nose, Mouth, and Throat: ABSENT: mouth pain, sore throat Cardiovascular: PRESENT: chest pain, dyspnea on exertion. ABSENT: edema, orthropnea, palpitations Gastrointestinal: PRESENT: nausea, vomiting. ABSENT: abdominal pain, bloating, coffee ground emesis, heartburn, hematemesis, hematochezia Genitourinary: ABSENT: dysuria, hematuria Integumentary: ABSENT: erythema, lesions, pruritus, rash Neurological: ABSENT: abnormal movements, confusion, convulsions, dizziness, focal weakness, frequent falls, lack of coordination Psychiatric: PRESENT: anxiety, depression. ABSENT: homidical ideation, suicidal ideation Hematologic/Lymphatic: ABSENT: easy bleeding, easy bruising, lymphadenopathy Physical Exam Vital Signs: Temp Pulse Resp BP Pulse Ox 98.1 F 63 16 123/80 97 05/12/18 07:06 05/12/18 07:06 05/12/18 07:06 05/12/18 07:06 05/12/18 07:06 Intake & Output 05/11/18 05/12/18 05/13/18 06:59 06:59 06:59 Intake Total 1154 Balance 1154 Weight 89.811 kg 88.3 kg General appearance: PRESENT: no acute distress Eye exam: PRESENT: conjunctiva pink, EOMI, PERRLA Ear exam: PRESENT: normal external ear exam Mouth exam: PRESENT: moist, neck supple Neck exam: ABSENT: lymphadenopathy, meningismus, tenderness, thyromegaly, tracheal deviation Respiratory exam: PRESENT: chest wall tenderness, clear to auscultation salazar. ABSENT: crackles, decreased breath sounds Cardiovascular exam: PRESENT: +S1, +S2 GI/Abdominal exam: PRESENT: normal bowel sounds, soft. ABSENT: organomegaly, tenderness Extremities exam: PRESENT: pedal edema Neurological exam: PRESENT: alert, awake, oriented to person, oriented to place, oriented to time Skin exam: ABSENT: erythema, mottled, rash Results Laboratory Results: 05/12/18 05:45 05/12/18 07:00 05/11/18 05/12/18 05/12/18 12:36 05:45 07:00 WBC 4.5 RBC 3.60 L Hgb 11.4 L Hct 33.5 L MCV 93 MCH 31.7 MCHC 34.1 RDW 14.0 Plt Count 172 Seg Neutrophils % 34.8 L Lymphocytes % 54.4 H Monocytes % 7.7 Eosinophils % 2.1 Basophils % 1.0 Absolute Neutrophils 1.6 L Absolute Lymphocytes 2.5 Absolute Monocytes 0.3 Absolute Eosinophils 0.1 Absolute Basophils 0.0 Sodium Cancelled Potassium Cancelled Chloride Cancelled Carbon Dioxide Cancelled Anion Gap Cancelled BUN Cancelled Creatinine Cancelled Est GFR ( Amer) Cancelled Est GFR (Non-Af Amer) Cancelled Glucose Cancelled Calcium Cancelled Urine Color STRAW Urine Appearance CLEAR Urine pH 5.0 Ur Specific [place] 1.009 Urine Protein 100 H Urine Glucose (UA) 50 H Urine Ketones NEGATIVE Urine Blood NEGATIVE Urine Nitrite NEGATIVE Ur Leukocyte Esterase SMALL H Urine WBC (Auto) 6 Urine RBC (Auto) 0 05/11/18 05/11/18 05/11/18 03:45 03:45 06:45 Creatine Kinase 38 CK-MB (CK-2) 0.66 Troponin I < 0.012 < 0.012 05/11/18 05/11/18 05/11/18 11:26 11:26 18:00 Creatine Kinase 27 L 26 L CK-MB (CK-2) 0.41 Troponin I < 0.012 05/11/18 18:00 Creatine Kinase CK-MB (CK-2) 0.36 Troponin I < 0.012 Impressions: Chest X-Ray 05/11/18 01:16 IMPRESSION: No acute cardiopulmonary process copyright 2011 [employer]- All Rights Reserved Assessment & Plan - Diagnosis (1) Chest pain Qualifiers: Chest pain type: precordial pain Qualified Code(s): R07.2 - Precordial pain Is this a current diagnosis for this admission?: Yes Plan: Likely musculoskeletal. Stress and anxiety might also be playing a role in magnifying this pain.Cardiology involved. Previous cardiac catheterization x2 has been negative. (2) Chronic kidney disease, stage V Is this a current diagnosis for this admission?: Yes Plan: Stable renal numbers as compared to her previous labs done in my office. No signs of uremia, congestive heart failure or electrolyte disturbances that dictates initiation of renal replacements at the moment. I am going to order 24 urine for creatinine clearance to quantify as well. Reassured the patient that there is no indication to start dialysis at the moment. This seems to reassure her somewhat. (3) Chronic pain syndrome Is this a current diagnosis for this admission?: Yes Plan: She is under pain management. Obviously her increased stress and anxiety of lately because of impending ESRD status and initiation of peritoneal dialysis might also be fueling and magnifying her pain issues. (4) Hypertension Plan: Uncontrolled. Monitor. Will need titration of her medications. (5) Renal osteodystrophy Plan: Continue current medications. (6) Nausea & vomiting Plan: Would recommend getting a gastric emptying scan.
[2018-05-12] MEDS: PROMETHAZINE HCL INJ 25 MG/1 ML VIAL IV PRN ×2 (11:18→20:33)
[2018-05-12 11:39] LABS: ANION GAP 9 (5-19); BLOOD UREA NITROGEN 46 mg/dL (7-20); CALCIUM 8.9 mg/dL (8.4-10.2); CARBON DIOXIDE 25 mmol/L (22-30); CHLORIDE 105 mmol/L (98-107); GLUCOSE 131 mg/dL (75-110); SODIUM 138.5 mmol/L (137-145)
--- NOTE | 2018-05-12 21:05 | EKG REPORT ---
SEVERITY:- ABNORMAL ECG - SINUS RHYTHM LEFT VENTRICULAR HYPERTROPHY ABNORMAL T, CONSIDER ISCHEMIA, LATERAL LEADS : Confirmed by: Abigail Mandel MD 12-May-2018 21:05:14
[2018-05-12] MEDS: ZOLPIDEM TARTRATE 5 MG TABLET PO SCH (21:58)
[2018-05-12] MEDS: AMLODIPINE BESYLATE 2.5 MG TABLET PO SCH (21:58)
[2018-05-12] MEDS: TRAZODONE HCL 50 MG TABLET PO SCH (21:58)
[2018-05-12] MEDS: HYDROMORPHONE HCL INJ/PF 2 MG/ML AMPULE IV PRN (22:00)
[2018-05-13] MEDS: NITROGLYCERIN 2% OINTMENT 1 GM PACKET TP SCH ×4 (00:28→18:02)
--- NOTE | 2018-05-13 01:17 | CONSULTATION REPORT E ---
Consultation Report NAME: DAREN ROSS : 1965 AGE: 52Y DATE: 05/12/2018 ROOM: 332 A TO: JEAN RICE M.D. FROM: MIKE ANGEL M.D. Requesting Physician REASON FOR CONSULTATION: Admitting physician requests pain management consultation. REQUESTING PHYSICIAN: Abelino Luque M.D. CHIEF COMPLAINT: Back pain and chest pain. HISTORY OF PRESENT ILLNESS: The patient is a 52-year-old female with a longstanding history of chronic pain as well as current chest pain and end-stage renal disease likely due to hypertensive nephropathy. She also has PTSD, migraine headaches, diabetes, and hypertension. The patient was recently admitted secondary to worsening chest pain and has been treated with intermittent nitroglycerin. She is also having current workup for evaluation of renal function. The patient notes that she has been having severe and worsening back pain. The patient's has had a longstanding history of low back pain by her report. She has been through multiple trials of different medications and therapies including physical therapy, topical treatments, nonopioid medications including neuropathic medications. The patient today notes that she has been on OxyContin, oxycodone, and methadone at fairly high doses in the past. The patient was notably a new patient to our clinic at [facility] [place] starting in March. Prior to this she was with Dr. Garibay at [facility]. She had been managed on oxycodone 50 mg p.o. q.i.d. for a number of months, but states that this just was not helpful. She also notes that morphine is not helpful nor was OxyContin. She states methadone has been helpful in the past but she did not like the stigma associated with this medication. When she was seen in our clinic she was switched from oxycodone to hydromorphone. She states this is somewhat better than the oxycodone but she is still having severe and ongoing pain that is not adequately managed by the medications. She notes that the pain has been worse since she has been in the hospital unable to get and move about as usual. She describes severe and lancinating pain in her lower back with some radiation to bilateral buttocks that she associates with degenerative disk disease. PAST MEDICAL HISTORY: Hyperlipidemia, hypertension, sleep apnea, migraine headaches, diabetes, end-stage renal disease, gastroesophageal reflux disease, arthritis, fibromyalgia, degenerative disk disease in the low back, depression, PTSD, and anemia. PAST SURGICAL HISTORY: Appendectomy, cardiac catheterization, cholecystectomy, hysterectomy, orthopedic surgery of the right ankle, shoulder surgery in 2017, thyroidectomy, vascular surgery with a port-A-Cath in the right upper chest. SOCIAL HISTORY: She is here today with her . She denies smoking and states she has never been a smoker. She denies drug abuse or alcohol use. ALLERGIES: 1. CODEINE. 2. TORADOL. 3. NALBUPHINE. 4. ONDANSETRON. 5. DROPERIDOL. HOME MEDICATIONS: 1. Abilify 50 mg p.o. daily. 2. Clonidine 0.3 mg p.o. q.8. 3. Divalproex 500 mg p.o. q.12. 4. Lexapro 20 mg p.o. daily. 5. Lunesta 3 mg p.o. at bedtime. 6. Furosemide 40 mg p.o. daily. 7. Gabapentin 300 mg p.o. q.12. 8. Zestril 10 mg p.o. q.12. 9. Robaxin 750 mg p.o. q.6 p.r.n. 10. Calcitriol 1 mcg p.o. daily. 11. Reglan 10 mg p.o. at bedtime. 12. Dilaudid 4 mg p.o. q.4-6 hours p.r.n. 13. Nitroglycerin as needed. 14. Trazodone 150 mg p.o. at bedtime. PHYSICAL EXAMINATION: VITAL SIGNS: Heart rate is 64, blood pressure 137/78, respirations 16, oxygen saturation 100% on room air. Pain level 4/5 on a numeric rating scale. GENERAL: The patient is a pleasant, well-developed, well-nourished female who is sitting up in her hospital bed eating dinner, no acute distress. She is here today with her . HEENT: Head is normocephalic, atraumatic. The patient wears glasses. RESPIRATORY: Even unlabored work of breathing. CARDIOVASCULAR: Pulse is regular. MUSCULOSKELETAL: Moves all extremities easily. Also the patient is somewhat tender to palpation in the mid to lower back along the midline of paravertebral musculature. NEUROLOGIC: The patient is awake, alert, and oriented x3. No overt neurologic deficits appreciated. PSYCHIATRIC EXAMINATION: The patient is pleasant and talkative. No overt depression appreciated. SKIN: No rashes. ASSESSMENT AND PLAN: 1. Chest pain. The patient will follow along with admitting service regarding treatment with nitroglycerin and other workup that might be needed. 2. Chronic pain syndrome and also lumbar disk degeneration. The patient has had a longstanding history of medication management for her low back pain. She was recently switched from oxycodone to hydromorphone some benefit, but not sufficient benefit. For the time in the hospital given the severe increase in pain I can increase the hydromorphone to 8 mg p.o. q.6 hours p.r.n. I am also going to discontinue the morphine in the setting of inefficacy and also history of chronic end-stage renal disease. I will write for IV hydromorphone in the case that she has severe breakthrough pain, otherwise home medications can be continued including gabapentin. This of course will be renally dosed. I have discussed other options with the patient as far as pain management. As an outpatient it may well be reasonable to consider trial of levorphanol. However, this notably is not available in-house. We will plan to make these changes and continue to follow along. The patient will follow up with [facility] as an outpatient for further consideration. Thank you again for this very interesting consult. DICTATING PHYSICIAN: JEAN RICE M.D. [id number] PHY#: [id number] ID: [id number] JOB#: [id number] ACCT: [id number] cc:JEAN RICE M.D. >
[2018-05-13] MEDS: PROMETHAZINE HCL INJ 25 MG/1 ML VIAL IV PRN ×3 (04:41→17:54)
[2018-05-13] MEDS: HYDROMORPHONE HCL INJ/PF 2 MG/ML AMPULE IV PRN ×3 (04:43→17:55)
[2018-05-13] MEDS: CLONIDINE HCL 0.1 MG TABLET PO SCH ×3 (05:20→21:20)
[2018-05-13 06:06] LABS: ABSOLUTE EOSINOPHILS # (AUTO) 0.1 10^3/uL (0.0-0.6); ABSOLUTE LYMPHOCYTES (AUTO) 3.2 10^3/uL (0.5-4.7); ABSOLUTE MONOCYTES (AUTO) 0.4 10^3/uL (0.1-1.4); ABSOLUTE NEUT (AUTO) 1.5 10^3/uL (1.7-8.2); BASOPHILS % (AUTO) 0.6 % (0-2); EOSINOPHILS % (AUTO) 2.5 % (0-6); HEMATOCRIT 34.3 % (36.0-47.0); HEMOGLOBIN 11.6 g/dL (12.0-15.5); LYMPHOCYTES % (AUTO) 61.4 % (13-45); MEAN CORPUSCULAR HEMOGLOBIN 31.8 pg (27.0-33.4); MEAN CORPUSCULAR HGB CONC 33.8 g/dL (32.0-36.0); MEAN CORPUSCULAR VOLUME 94 fl (80-97); MONOCYTES % (AUTO) 6.7 % (3-13); PLATELET COUNT 167 10^3/uL (150-450); RED BLOOD COUNT 3.65 10^6/uL (3.72-5.28); RED CELL DISTRIBUTION WIDTH 13.8 % (11.5-14.0); SEGMENTED NEUTROPHILS % (AUTO) 28.8 % (42-78); TOTAL CELLS COUNTED % (AUTO) 100 %; WHITE BLOOD COUNT 5.3 10^3/uL (4.0-10.5)
[2018-05-13 06:27] LABS: ALANINE AMINOTRANSFERASE 18 U/L (9-52); ALBUMIN 2.9 g/dL (3.5-5.0); ALKALINE PHOSPHATASE 92 U/L (38-126); ANION GAP 6 (5-19); ASPARTATE AMINO TRANSFERASE 12 U/L (14-36); BILIRUBIN,DIRECT 0.3 mg/dL (0.0-0.4); BILIRUBIN,TOTAL 0.4 mg/dL (0.2-1.3); BLOOD UREA NITROGEN 47 mg/dL (7-20); CALCIUM 9.5 mg/dL (8.4-10.2); CARBON DIOXIDE 27 mmol/L (22-30); CHLORIDE 106 mmol/L (98-107); GLUCOSE 89 mg/dL (75-110); POTASSIUM 4.3 mmol/L (3.6-5.0); SODIUM 138.7 mmol/L (137-145); TOTAL PROTEIN 5.9 g/dL (6.3-8.2)
[2018-05-13] MEDS: METOCLOPRAMIDE HCL ORAL SOLN 10 MG/10 ML UDCUP PO SCH ×4 (08:09→21:21)
[2018-05-13] MEDS ORDERED: REGADENOSON INJ 0.4 MG/5 ML DISP.SYRIN IV ONE (10:52)
[2018-05-13] MEDS: ARIPIPRAZOLE 5 MG TABLET PO SCH (11:27)
[2018-05-13] MEDS: LISINOPRIL 10 MG TABLET PO SCH ×2 (11:27→21:20)
[2018-05-13] MEDS: CALCITRIOL 0.25 MCG CAPSULE PO SCH (11:27)
[2018-05-13] MEDS: DIVALPROEX SODIUM 500 MG TAB.SR.24H PO SCH ×2 (11:27→21:20)
[2018-05-13] MEDS: ESCITALOPRAM OXALATE 10 MG TABLET PO SCH (11:28)
[2018-05-13] MEDS: ENOXAPARIN SODIUM INJ 30 MG/0.3 ML DISP.SYRIN SUBCUT SCH (11:30)
--- NOTE | 2018-05-13 12:09 | PDOC PROGRESS REPORT ---
Subjective Progress Note for:: 05/13/18 Reason For Visit: Patient seen today. She is lying comfortably in her bed. She denies any history of shortness of breath. Has persisting nausea and finds that she cannot eat as much as she used to in the past. No history of any abdominal pains or diarrhea. No history of any fever or chills. Labs and medications were reviewed with her. Her 24 hour urine is almost done. Physical Exam Vital Signs: Temp Pulse Resp BP Pulse Ox 98.7 F 66 18 129/68 H 98 05/13/18 10:48 05/13/18 10:48 05/13/18 10:48 05/13/18 10:48 05/13/18 10:48 Intake & Output 05/12/18 05/13/18 05/14/18 06:59 06:59 06:59 Intake Total 1154 1549 Output Total 500 Balance 1154 1049 Weight 88.3 kg 91.5 kg General appearance: PRESENT: no acute distress Respiratory exam: PRESENT: clear to auscultation salazar. ABSENT: crackles Cardiovascular exam: PRESENT: +S1, +S2 GI/Abdominal exam: PRESENT: normal bowel sounds, soft. ABSENT: organomegaly, tenderness Neurological exam: PRESENT: alert, awake, oriented to person, oriented to place Results Laboratory Results: 05/13/18 04:50 05/13/18 04:50 05/13/18 05/13/18 04:50 04:50 WBC 5.3 RBC 3.65 L Hgb 11.6 L Hct 34.3 L MCV 94 MCH 31.8 MCHC 33.8 RDW 13.8 Plt Count 167 Seg Neutrophils % 28.8 L Lymphocytes % 61.4 H Monocytes % 6.7 Eosinophils % 2.5 Basophils % 0.6 Absolute Neutrophils 1.5 L Absolute Lymphocytes 3.2 Absolute Monocytes 0.4 Absolute Eosinophils 0.1 Absolute Basophils 0.0 Sodium 138.7 Potassium 4.3 Chloride 106 Carbon Dioxide 27 Anion Gap 6 BUN 47 H Creatinine 4.37 H Est GFR ( Amer) 13 L Est GFR (Non-Af Amer) 11 L Glucose 89 Calcium 9.5 Magnesium 2.1 Total Bilirubin 0.4 AST 12 L ALT 18 Alkaline Phosphatase 92 Total Protein 5.9 L Albumin 2.9 L 05/11/18 12:36 Clean Catch Midstream Urine Culture - Final Mixed Urogenital [place] 05/11/18 05/11/18 05/11/18 03:45 03:45 06:45 Creatine Kinase 38 CK-MB (CK-2) 0.66 Troponin I < 0.012 < 0.012 05/11/18 05/11/18 05/11/18 11:26 11:26 18:00 Creatine Kinase 27 L 26 L CK-MB (CK-2) 0.41 Troponin I < 0.012 05/11/18 18:00 Creatine Kinase CK-MB (CK-2) 0.36 Troponin I < 0.012 Impressions: Chest X-Ray 05/11/18 01:16 IMPRESSION: No acute cardiopulmonary process copyright 2011 [employer]- All Rights Reserved Assessment & Plan - Diagnosis (1) Chest pain Qualifiers: Chest pain type: precordial pain Qualified Code(s): R07.2 - Precordial pain Is this a current diagnosis for this admission?: Yes Plan: As per hospitalist. (2) Chronic kidney disease, stage V Is this a current diagnosis for this admission?: Yes Plan: Non-oliguric. Stable renal numbers. Knows evidences of uremia. No acute indications for renal replacements. Every 24-hour creatinine clearance. (3) Chronic pain syndrome Is this a current diagnosis for this admission?: Yes Plan: As per hospitalist. (4) Hypertension Is this a current diagnosis for this admission?: Yes Plan: Much better controlled. Monitor. (5) Renal osteodystrophy Is this a current diagnosis for this admission?: Yes Plan: Monitor. Continue current medications. (6) Nausea & vomiting Plan: Possibly from gastroparesis.
[2018-05-13 14:57] LABS: CREATININE 4.37 mg/dL (0.52-1.25)
[2018-05-13 15:07] LABS: URINE CREATININE 63.4 mg/dL (15-278)
--- NOTE | 2018-05-13 18:05 | PDOC PROGRESS REPORT ---
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 05/11/2018 she presented to ED complaining of persistent chest pain, substernal, radiating to her jaw and right breast. Worsened with movement and coughing. Troponins less than 0.012 x 3. EKG sinus rhythm with left ventricular hypertrophy. And was admitted for chest pain workup. Cardiac a stress of has been planned however it was delayed due to ongoing chest pain. 05/12/2018. No acute events overnight. Patient still complaining constant on and off chest pain. She is explaining to me that chest pain is substernal, pressure-like, last for several hours, 9 out of 10 in severity, worsened by coughing, breathing, and movement. Nonradiating. Patient has history of chronic opiate use, takes Dilaudid at home. Patient is scheduled to have a stress test done however she is been having frequent chest pain and it has been delayed for tomorrow. Patient also pending pain management consult. Nephrology has been consulted patient is not going to receive any hemodialysis, the patient. A 24-hour urine collection has been ordered by brush and broom clipper. 05/13/2018. Patient still complaining of persistent nausea denies any vomiting. She cannot eat too much because she will feel bloated right after eating. P atjulio had her stress study which was unremarkable patient was notified about negative a stress test study and was told that she could get an EGD and gastric emptying study as outpatient but she stated she would rather stay to get the study done here were done outpatient. She was informed that GI consult is not available until next Wednesday and there is no guarantee if they will do it here. She is still stated that she wants to wait until seen by GI specialist. Patient is also still undergoing 24-hour urine collection by nephrology. Denies any fever, shortness of breath, chills, abdominal pain, diarrhea, constipation or any urinary symptoms. Still having on and off pleuritic chest pain and generalized chronic pain. Reason For Visit: CHEST PRESSURE,HYPERTENSION,ESRD,PTSD,MIGRAINE Physical Exam Vital Signs: Temp Pulse Resp BP Pulse Ox 98.3 F 64 16 135/84 H 94 01/25/19 15:43 05/13/18 15:43 05/13/18 15:43 05/13/18 15:43 05/13/18 15:43 Intake & Output 05/12/18 05/13/18 05/14/18 06:59 06:59 06:59 Intake Total 1154 1549 800 Output Total 500 200 Balance 1154 1049 600 Weight 88.3 kg 91.5 kg General appearance: PRESENT: no acute distress, well-developed, well-nourished Head exam: PRESENT: atraumatic, normocephalic Respiratory exam: PRESENT: clear to auscultation salazar. ABSENT: rales, rhonchi, wheezes Cardiovascular exam: PRESENT: RRR. ABSENT: diastolic murmur, rubs, systolic murmur GI/Abdominal exam: PRESENT: normal bowel sounds, soft. ABSENT: distended, guarding, mass, organolmegaly, rebound, tenderness Neurological exam: PRESENT: alert, awake, oriented to person, oriented to place, oriented to time, oriented to situation, CN II-XII grossly intact. ABSENT: motor sensory deficit Results Laboratory Results: 05/13/18 04:50 05/13/18 04:50 05/12/18 05/13/18 05/13/18 13:30 04:50 04:50 WBC 5.3 RBC 3.65 L Hgb 11.6 L Hct 34.3 L MCV 94 MCH 31.8 MCHC 33.8 RDW 13.8 Plt Count 167 Seg Neutrophils % 28.8 L Lymphocytes % 61.4 H Monocytes % 6.7 Eosinophils % 2.5 Basophils % 0.6 Absolute Neutrophils 1.5 L Absolute Lymphocytes 3.2 Absolute Monocytes 0.4 Absolute Eosinophils 0.1 Absolute Basophils 0.0 Sodium 138.7 Potassium 4.3 Chloride 106 Carbon Dioxide 27 Anion Gap 6 BUN 47 H Creatinine 4.37 H 4.37 H Est GFR ( Amer) 13 L Est GFR (Non-Af Amer) 11 L Glucose 89 Calcium 9.5 Magnesium 2.1 Total Bilirubin 0.4 AST 12 L ALT 18 Alkaline Phosphatase 92 Total Protein 5.9 L Albumin 2.9 L Ur 24 Hour Volume 2140 05/11/18 12:36 Clean Catch Midstream Urine Culture - Final Mixed Urogenital Tatyana 05/11/18 05/11/1805/11/19 03:45 03:45 06:45 Creatine Kinase 38 CK-MB (CK-2) 0.66 Troponin I < 0.012 < 0.012 05/11/18 05/11/18 05/11/18 11:26 11:26 18:00 Creatine Kinase 27 L 26 L CK-MB (CK-2) 0.41 Troponin I < 0.012 05/11/18 18:00 Creatine Kinase CK-MB (CK-2) 0.36 Troponin I < 0.012 Impressions: Chest X-Ray 05/11/18 01:16 IMPRESSION: No acute cardiopulmonary process copyright 2010 [employer]- All Rights Reserved Assessment & Plan - Diagnosis (1) Chest pain Qualifiers: Chest pain type: precordial pain Qualified Code(s): R07.2 - Precordial pain Is this a current diagnosis for this admission?: Yes Plan: Status post cardiac a stress test which was negative. Likely noncardiac. Could be musculoskeletal exacerbated by anxiety and stress. Patient has had 2 cardiac catheterization in the past which has both been negative. ECG on admission sinus rhythm. Troponins negative x3. (2) Chronic pain syndrome Is this a current diagnosis for this admission?: Yes Plan: History of chronic pain, patient has been seen by pain management as outpatient. Chronic opiate use. Takes Dilaudid at home. Seen by pain management and her pain medications has been reconciled. Outpatient follow-up with [place] [facility]. (3) Hypertension Is this a current diagnosis for this admission?: Yes Plan: Better controlled. Amlodipine 5 mg p.o. daily, lisinopril 10 mg p.o. daily. Adjust meds as needed. Outpatient PCP follow-up. (4) Migraine headache Qualifiers: Migraine type: unspecified Status migrainosus presence: without status migrainosus Intractability: not intractable Qualified Code(s): G43.909 - Migraine, unspecified, not intractable, without status migrainosus Is this a current diagnosis for this admission?: Yes Plan: Restart home meds. (5) Obesity (BMI 30-39.9) Is this a current diagnosis for this admission?: Yes Plan: Diet and lifestyle modification. (6) Renal osteodystrophy Is this a current diagnosis for this admission?: Yes Plan: Continue current meds. (7) Chronic kidney disease, stage V Is this a current diagnosis for this admission?: Yes Plan: Likely due to chronic hypertension. No uremic symptoms. No sign of volume overload. Nonoliguric. Nephrology on board. Pending 24-hour urine creatinine clearance by nephrology. Does not need hemodialysis at this point as per nephrology note.
[2018-05-13] MEDS: AMLODIPINE BESYLATE 2.5 MG TABLET PO SCH (21:19)
[2018-05-13] MEDS: ZOLPIDEM TARTRATE 5 MG TABLET PO SCH (21:21)
[2018-05-13] MEDS: TRAZODONE HCL 50 MG TABLET PO SCH (21:21)
--- NOTE | 2018-05-13 22:48 | DRAGON STRESS TEST REPORT ---
Intravenous Lexiscan Cardiolite stress test using single photon emmision computerized tomography. Date of procedure 05/13/2018.:Ordering Provider: Dr. Fabian. Patient's status: Inpatient. Indication: Chest pain. Coronary risk factors: Age, hypertension, dyslipidemia, and family history of coronary artery disease. Resting EKG: Sinus Rhythm. Diffuse minor nonspecific T changes Stress EKG: No changes of ischemia. The patient had no chest pain or discomfort, and there were no arrhythmias seen. Reason for termination: Protocol. Conclusions: Normal EKG and hemodynamic response to IV Lexiscan. Nuclear data: At rest the patient was given 13.78 millicuries of technetium 99m sestamibi injected intravenously. As per protocol rest non gated SPECT images were obtained. Subsequently the patient was given intravenous Lexiscan at a dose of 0.4 mg in 5 mL intravenously, followed by flush with normal saline. Subsequently the stress dose of 40.7 millicuries of technetium 99m sestamibi was injected intravenously. As per protocol stress gated images were obtained. Nuclear interpretation: Review of images showed that all segments of the myocardium had normal perfusion at rest, and normal perfusion post stress with IV Lexiscan. All segments of the myocardium had normal motion, contraction, and thickening by gated study. T. I D. ratio was normal at 1.10. There was no transient ischemic dilatation of the left ventricle. Computer read rest, and stress left ventricular ejection fraction were 60 %, and 64 %, respectively. Conclusion: 1. There is no scintigraphic evidence of Lexiscan induced myocardial ischemia. 2. There is no scintigraphic evidence of myocardial infarction/scar. Recommendations: Aggressive risk factor modification, and treating the underlying co- morbidities. MTDD
[2018-05-14] MEDS: HYDROMORPHONE HCL INJ/PF 2 MG/ML AMPULE IV PRN ×4 (00:14→21:46)
[2018-05-14] MEDS: PROMETHAZINE HCL INJ 25 MG/1 ML VIAL IV PRN ×2 (00:15→06:05)
[2018-05-14] MEDS: NITROGLYCERIN 2% OINTMENT 1 GM PACKET TP SCH ×4 (00:23→17:36)
[2018-05-14] MEDS: CLONIDINE HCL 0.1 MG TABLET PO SCH ×3 (06:00→21:43)
[2018-05-14 07:04] LABS: BLOOD UREA NITROGEN 42 mg/dL (7-20); CALCIUM 9.4 mg/dL (8.4-10.2); CARBON DIOXIDE 30 mmol/L (22-30); CHLORIDE 106 mmol/L (98-107); GLUCOSE 82 mg/dL (75-110); POTASSIUM 4.1 mmol/L (3.6-5.0)
[2018-05-14 07:05] LABS: ALANINE AMINOTRANSFERASE 22 U/L (9-52); ALKALINE PHOSPHATASE 96 U/L (38-126); ASPARTATE AMINO TRANSFERASE 11 U/L (14-36); BILIRUBIN,DIRECT 0.2 mg/dL (0.0-0.4); BILIRUBIN,TOTAL 0.3 mg/dL (0.2-1.3)
[2018-05-14 07:10] LABS: SODIUM 139.5 mmol/L (137-145)
[2018-05-14 07:11] LABS: ANION GAP 4 (5-19)
[2018-05-14] MEDS: DIVALPROEX SODIUM 500 MG TAB.SR.24H PO SCH ×2 (09:02→21:46)
[2018-05-14] MEDS: ESCITALOPRAM OXALATE 10 MG TABLET PO SCH (09:02)
[2018-05-14] MEDS: ARIPIPRAZOLE 5 MG TABLET PO SCH (09:02)
[2018-05-14] MEDS: CALCITRIOL 0.25 MCG CAPSULE PO SCH (09:02)
[2018-05-14] MEDS: METOCLOPRAMIDE HCL ORAL SOLN 10 MG/10 ML UDCUP PO SCH (09:02)
[2018-05-14] MEDS: ENOXAPARIN SODIUM INJ 30 MG/0.3 ML DISP.SYRIN SUBCUT SCH (09:03)
[2018-05-14] MEDS: LISINOPRIL 10 MG TABLET PO SCH ×2 (09:03→21:45)
[2018-05-14] MEDS ORDERED: BISACODYL 5 MG TABEC PO PRN (09:59)
[2018-05-14] MEDS: POLYETHYLENE GLYCOL 3350 POWDER 17 GM/1 PACKET PO PRN (10:25)
[2018-05-14] MEDS: HYDROMORPHONE HCL 2 MG TABLET PO PRN ×2 (10:25→17:39)
[2018-05-14] MEDS: PROMETHAZINE HCL INJ 25 MG/1 ML VIAL IV SCH ×3 (11:15→21:44)
[2018-05-14] MEDS ORDERED: PROCHLORPERAZINE EDISYLATE INJ 10 MG/2 ML VIAL IM ONE (16:16)
--- NOTE | 2018-05-14 16:24 | PDOC PROGRESS REPORT ---
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 05/11/2018 she presented to ED complaining of persistent chest pain, substernal, radiating to her jaw and right breast. Worsened with movement and coughing. Troponins less than 0.012 x 3. EKG sinus rhythm with left ventricular hypertrophy. And was admitted for chest pain workup. Cardiac a stress of has been planned however it was delayed due to ongoing chest pain. 05/12/2018. No acute events overnight. Patient still complaining constant on and off chest pain. She is explaining to me that chest pain is substernal, pressure-like, last for several hours, 9 out of 10 in severity, worsened by coughing, breathing, and movement. Nonradiating. Patient has history of chronic opiate use, takes Dilaudid at home. Patient is scheduled to have a stress test done however she is been having frequent chest pain and it has been delayed for tomorrow. Patient also pending pain management consult. Nephrology has been consulted patient is not going to receive any hemodialysis, the patient. A 24-hour urine collection has been ordered by [employer] ascp consultant. 05/13/2018. Patient still complaining of persistent nausea denies any vomiting. She cannot eat too much because she will feel bloated right after eating. P atjulio had her stress study which was unremarkable patient was notified about negative a stress test study and was told that she could get an EGD and gastric emptying study as outpatient but she stated she would rather stay to get the study done here were done outpatient. She was informed that GI consult is not available until next Wednesday and there is no guarantee if they will do it here. She is still stated that she wants to wait until seen by GI specialist. Patient is also still undergoing 24-hour urine collection by nephrology. Denies any fever, shortness of breath, chills, abdominal pain, diarrhea, constipation or any urinary symptoms. Still having on and off pleuritic chest pain and generalized chronic pain. 05/14/2018. 05/14/2018. She is still complaining of persistent nausea had one episode of vomiting yesterday and one episode of vomiting today. She still having on and off pleuritic chest pain. Cardiac a stress test on 05/13/2018 was negative. Still waiting for GI evaluation for possible EGD and gastric emptying studies. Patient is ambulatory. Patient is complaining of constipation. Is able to pass gas. Denies any fever, chills, shortness of breath, diarrhea or any urinary symptoms. Patient was notified that she could get evaluated by GI as outpatient however she refused to be seen as outpatient and prefers to wait until seen by GI. Reason For Visit: CHEST PRESSURE,HYPERTENSION,ESRD,PTSD,MIGRAINE Physical Exam Vital Signs: Temp Pulse Resp BP Pulse Ox 97.9 F 65 18 122/68 96 05/14/18 10:57 05/14/18 14:00 05/14/18 10:57 05/14/18 10:57 05/14/18 10:57 Intake & Output 05/13/18 05/14/18 05/15/18 06:59 06:59 06:59 Intake Total 1549 800 525 Output Total 500 200 Balance 1049 600 525 Weight 91.5 kg 89.5 kg General appearance: PRESENT: obese Head exam: PRESENT: atraumatic, normocephalic Respiratory exam: PRESENT: clear to auscultation salazar. ABSENT: rales, rhonchi, wheezes Cardiovascular exam: PRESENT: RRR. ABSENT: diastolic murmur, rubs, systolic murmur GI/Abdominal exam: PRESENT: normal bowel sounds, soft. ABSENT: distended, guarding, mass, organolmegaly, rebound, tenderness Extremities exam: PRESENT: full ROM. ABSENT: calf tenderness, clubbing, pedal edema Neurological exam: PRESENT: alert, awake, oriented to person, oriented to place, oriented to time, oriented to situation, CN II-XII grossly intact. ABSENT: motor sensory deficit Results Laboratory Results: 05/13/18 04:50 05/14/18 06:05 05/14/18 06:05 Sodium 139.5 Potassium 4.1 Chloride 106 Carbon Dioxide 30 Anion Gap 4 L BUN 42 H Creatinine 4.53 H Est GFR ( Amer) 12 L Est GFR (Non-Af Amer) 10 L Glucose 82 Calcium 9.4 Magnesium 2.2 Total Bilirubin 0.3 AST 11 L ALT 22 Alkaline Phosphatase 96 Total Protein 6.0 L Albumin 3.0 L 05/11/18 05/11/18 05/11/18 03:45 03:45 06:45 Creatine Kinase 38 CK-MB (CK-2) 0.66 Troponin I < 0.012 < 0.012 05/11/18 05/11/18 05/11/18 11:26 11:26 18:00 Creatine Kinase 27 L 26 L CK-MB (CK-2) 0.41 Troponin I < 0.012 05/11/18 18:00 Creatine Kinase CK-MB (CK-2) 0.36 Troponin I < 0.012 Impressions: Chest X-Ray 05/11/18 01:16 IMPRESSION: No acute cardiopulmonary process copyright 2010 [employer]- All Rights Reserved Assessment & Plan - Diagnosis (1) Nausea & vomiting Qualifiers: Vomiting type: cyclical vomiting Is this a current diagnosis for this admission?: Yes Plan: Multifactorial. Could be secondary to chronic opiate abuse or gastroparesis. Pending evaluation by GI for possible upper GI EGD or gastric emptying study. We will continue supportive measures, monitor volume status and electrolytes. (2) Chest pain Qualifiers: Chest pain type: precordial pain Qualified Code(s): R07.2 - Precordial pain Is this a current diagnosis for this admission?: Yes Plan: Still having on and off pleuritic chest pain. Likely not cardiac. Could either with musculoskeletal/anxiety or GI related. Patient has had 2 cardiac catheterization in the past which has both been negative. ECG on admission sinus rhythm. Troponins negative x3. (3) Chronic pain syndrome Is this a current diagnosis for this admission?: Yes Plan: History of chronic pain, patient has been seen by pain management as outpatient. Chronic opiate use. Takes Dilaudid at home. Seen by pain management and her pain medications has been reconciled. Outpatient follow-up with [place] [facility]. (4) Hypertension Is this a current diagnosis for this admission?: Yes Plan: Better controlled. Amlodipine 5 mg p.o. daily, lisinopril 10 mg p.o. daily. Adjust meds as needed. Outpatient PCP follow-up. (5) Migraine headache Qualifiers: Migraine type: unspecified Status migrainosus presence: without status migrainosus Intractability: not intractable Qualified Code(s): G43.909 - Migraine, unspecified, not intractable, without status migrainosus Is this a current diagnosis for this admission?: Yes Plan: Restart home meds. (6) Obesity (BMI 30-39.9) Is this a current diagnosis for this admission?: Yes Plan: Diet and lifestyle modification. (7) Renal osteodystrophy Is this a current diagnosis for this admission?: Yes Plan: Continue current meds. (8) Chronic kidney disease, stage V Is this a current diagnosis for this admission?: Yes Plan: Likely due to chronic hypertension. No uremic symptoms. No sign of volume overload. Nonoliguric. Nephrology on board. Pending 24-hour urine creatinine clearance by nephrology. Does not need hemodialysis at this point as per nephrology note. (9) Constipation due to opioid therapy Is this a current diagnosis for this admission?: Yes Plan: Likely secondary to chronic neck opiate abuse. Started on bowel regimen.
[2018-05-14] MEDS: ZOLPIDEM TARTRATE 5 MG TABLET PO SCH (21:46)
[2018-05-14] MEDS: TRAZODONE HCL 50 MG TABLET PO SCH (21:46)
[2018-05-14] MEDS: AMLODIPINE BESYLATE 2.5 MG TABLET PO SCH (21:46)
[2018-05-15] MEDS: NITROGLYCERIN 2% OINTMENT 1 GM PACKET TP SCH ×4 (00:16→17:21)
[2018-05-15] MEDS: PROMETHAZINE HCL INJ 25 MG/1 ML VIAL IV SCH ×6 (00:18→21:15)
[2018-05-15] MEDS: HYDROMORPHONE HCL INJ/PF 2 MG/ML AMPULE IV PRN ×4 (03:53→22:43)
[2018-05-15] MEDS: CLONIDINE HCL 0.1 MG TABLET PO SCH ×3 (06:39→22:45)
[2018-05-15 07:37] LABS: ALANINE AMINOTRANSFERASE 23 U/L (9-52); ALBUMIN 2.8 g/dL (3.5-5.0); ALKALINE PHOSPHATASE 92 U/L (38-126); ANION GAP 5 (5-19); ASPARTATE AMINO TRANSFERASE 10 U/L (14-36); BILIRUBIN,DIRECT 0.2 mg/dL (0.0-0.4); BILIRUBIN,TOTAL 0.3 mg/dL (0.2-1.3); BLOOD UREA NITROGEN 44 mg/dL (7-20); CALCIUM 9.4 mg/dL (8.4-10.2); CARBON DIOXIDE 29 mmol/L (22-30); CHLORIDE 104 mmol/L (98-107); GLUCOSE 94 mg/dL (75-110); POTASSIUM 4.2 mmol/L (3.6-5.0); SODIUM 138.3 mmol/L (137-145); TOTAL PROTEIN 5.7 g/dL (6.3-8.2)
[2018-05-15] MEDS: FUROSEMIDE 20 MG TABLET PO SCH (08:53)
[2018-05-15] MEDS: LISINOPRIL 10 MG TABLET PO SCH ×2 (10:30→22:45)
[2018-05-15] MEDS: DIVALPROEX SODIUM 500 MG TAB.SR.24H PO SCH ×2 (10:30→22:48)
[2018-05-15] MEDS: ARIPIPRAZOLE 5 MG TABLET PO SCH (10:30)
[2018-05-15] MEDS: CALCITRIOL 0.25 MCG CAPSULE PO SCH (10:31)
[2018-05-15] MEDS: ENOXAPARIN SODIUM INJ 30 MG/0.3 ML DISP.SYRIN SUBCUT SCH (10:31)
[2018-05-15] MEDS: ESCITALOPRAM OXALATE 10 MG TABLET PO SCH (10:31)
[2018-05-15] MEDS: HYDROMORPHONE HCL 2 MG TABLET PO PRN (12:34)
--- NOTE | 2018-05-15 14:26 | PDOC PROGRESS REPORT ---
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 05/11/2018 she presented to ED complaining of persistent chest pain, substernal, radiating to her jaw and right breast. Worsened with movement and coughing. Troponins less than 0.012 x 3. EKG sinus rhythm with left ventricular hypertrophy. And was admitted for chest pain workup. Cardiac a stress of has been planned however it was delayed due to ongoing chest pain. 05/12/2018. No acute events overnight. Patient still complaining constant on and off chest pain. She is explaining to me that chest pain is substernal, pressure-like, last for several hours, 9 out of 10 in severity, worsened by coughing, breathing, and movement. Nonradiating. Patient has history of chronic opiate use, takes Dilaudid at home. Patient is scheduled to have a stress test done however she is been having frequent chest pain and it has been delayed for tomorrow. Patient also pending pain management consult. Nephrology has been consulted patient is not going to receive any hemodialysis, the patient. A 24-hour urine collection has been ordered by business systems analyst. 05/13/2018. Patient still complaining of persistent nausea denies any vomiting. She cannot eat too much because she will feel bloated right after eating. P atjulio had her stress study which was unremarkable patient was notified about negative a stress test study and was told that she could get an EGD and gastric emptying study as outpatient but she stated she would rather stay to get the study done here were done outpatient. She was informed that GI consult is not available until next Wednesday and there is no guarantee if they will do it here. She is still stated that she wants to wait until seen by GI specialist. Patient is also still undergoing 24-hour urine collection by nephrology. Denies any fever, shortness of breath, chills, abdominal pain, diarrhea, constipation or any urinary symptoms. Still having on and off pleuritic chest pain and generalized chronic pain. 05/14/2018. 05/14/2018. She is still complaining of persistent nausea had one episode of vomiting yesterday and one episode of vomiting today. She still having on and off pleuritic chest pain. Cardiac a stress test on 05/13/2018 was negative. Still waiting for GI evaluation for possible EGD and gastric emptying studies. Patient is ambulatory. Patient is complaining of constipation. Is able to pass gas. Denies any fever, chills, shortness of breath, diarrhea or any urinary symptoms. Patient was notified that she could get evaluated by GI as outpatient however she refused to be seen as outpatient and prefers to wait until seen by GI. 05/15/2018. No acute events overnight. Patient still complaining of on and off pleuritic chest pain with persistent nausea. Has not had any vomiting since yesterday. Denies any shortness of breath, chills, fever, abdominal pain, diarrhea, constipation or any urinary symptoms. Still waiting to be evaluated by GI specialist. Reason For Visit: CHEST PRESSURE,HYPERTENSION,ESRD,PTSD,MIGRAINE Physical Exam Vital Signs: Temp Pulse Resp BP Pulse Ox 98.8 F 62 16 114/74 98 05/15/18 08:14 05/15/18 08:14 05/15/18 08:14 05/15/18 08:14 05/15/18 08:14 Intake & Output 05/14/18 05/15/18 05/16/18 06:59 06:59 06:59 Intake Total 800 977 Output Total 200 Balance 600 977 Weight 89.5 kg 89.6 kg General appearance: PRESENT: obese Head exam: PRESENT: atraumatic, normocephalic Respiratory exam: PRESENT: clear to auscultation salazar. ABSENT: rales, rhonchi, wheezes Cardiovascular exam: PRESENT: RRR. ABSENT: diastolic murmur, rubs, systolic murmur GI/Abdominal exam: PRESENT: normal bowel sounds, soft. ABSENT: distended, guarding, mass, organolmegaly, rebound, tenderness Extremities exam: PRESENT: full ROM. ABSENT: calf tenderness, clubbing, pedal edema Neurological exam: PRESENT: alert, awake, oriented to person, oriented to place, oriented to time, oriented to situation, CN II-XII grossly intact. ABSENT: motor sensory deficit Skin exam: PRESENT: dry, intact, warm. ABSENT: cyanosis, rash Results Laboratory Results: 05/13/18 04:50 05/15/18 06:40 05/15/18 06:40 Sodium 138.3 Potassium 4.2 Chloride 104 Carbon Dioxide 29 Anion Gap 5 BUN 44 H Creatinine 4.67 H Est GFR ( Amer) 12 L Est GFR (Non-Af Amer) 10 L Glucose 94 Calcium 9.4 Magnesium 2.2 Total Bilirubin 0.3 AST 10 L ALT 23 Alkaline Phosphatase 92 Total Protein 5.7 L Albumin 2.8 L 05/11/18 05/11/18 05/11/18 03:45 03:45 06:45 Creatine Kinase 38 CK-MB (CK-2) 0.66 Troponin I < 0.012 < 0.012 05/11/18 05/11/18 05/11/18 11:26 11:26 18:00 Creatine Kinase 27 L 26 L CK-MB (CK-2) 0.41 Troponin I < 0.012 05/11/18 18:00 Creatine Kinase CK-MB (CK-2) 0.36 Troponin I < 0.012 Impressions: Chest X-Ray 05/11/18 01:16 IMPRESSION: No acute cardiopulmonary process copyright 2011 [employer]- All Rights Reserved Assessment & Plan - Diagnosis (1) Nausea & vomiting Qualifiers: Vomiting type: cyclical vomiting Is this a current diagnosis for this admission?: Yes Plan: Multifactorial. Could be secondary to chronic opiate abuse or gastroparesis. Pending evaluation by GI for possible upper GI EGD or gastric emptying study. We will continue supportive measures, monitor volume status and electrolytes. (2) Chest pain Qualifiers: Chest pain type: precordial pain Qualified Code(s): R07.2 - Precordial pain Is this a current diagnosis for this admission?: Yes Plan: Still having on and off pleuritic chest pain. Likely not cardiac. Could either be musculoskeletal/anxiety or GI related. Patient has had 2 cardiac catheterization in the past which has both been negative. 05/13/2017 Cardiolite stress test negative. ECG on admission sinus rhythm. Troponins negative x3. (3) Chronic pain syndrome Is this a current diagnosis for this admission?: Yes Plan: History of chronic pain, patient has been seen by pain management as outpatient. Chronic opiate use. Takes Dilaudid at home. Seen by pain management and her pain medications has been reconciled. Outpatient follow-up with [place] [facility]. (4) Hypertension Is this a current diagnosis for this admission?: Yes Plan: Better controlled. Amlodipine 5 mg p.o. daily, lisinopril 10 mg p.o. daily. Adjust meds as needed. Outpatient PCP follow-up. (5) Migraine headache Qualifiers: Migraine type: unspecified Status migrainosus presence: without status migrainosus Intractability: not intractable Qualified Code(s): G43.909 - Migraine, unspecified, not intractable, without status migrainosus Is this a current diagnosis for this admission?: Yes Plan: Restart home meds. (6) Obesity (BMI 30-39.9) Is this a current diagnosis for this admission?: Yes Plan: Diet and lifestyle modification. (7) Renal osteodystrophy Is this a current diagnosis for this admission?: Yes Plan: Continue current meds. (8) Chronic kidney disease, stage V Is this a current diagnosis for this admission?: Yes Plan: Likely due to chronic hypertension. No uremic symptoms. No sign of volume overload. Nonoliguric. Nephrology on board. Pending 24-hour urine creatinine clearance by nephrology. Does not need hemodialysis at this point as per nephrology note. (9) Constipation due to opioid therapy Is this a current diagnosis for this admission?: Yes Plan: Likely secondary to chronic neck opiate abuse. Started on bowel regimen.
[2018-05-15] MEDS: POLYETHYLENE GLYCOL 3350 POWDER 17 GM/1 PACKET PO PRN (15:47)
[2018-05-15] MEDS: TRAZODONE HCL 50 MG TABLET PO SCH (22:43)
[2018-05-15] MEDS: AMLODIPINE BESYLATE 2.5 MG TABLET PO SCH (22:44)
[2018-05-15] MEDS: ZOLPIDEM TARTRATE 5 MG TABLET PO SCH (22:45)
[2018-05-16] MEDS: NITROGLYCERIN 2% OINTMENT 1 GM PACKET TP SCH ×5 (00:41→23:30)
[2018-05-16] MEDS: PROMETHAZINE HCL INJ 25 MG/1 ML VIAL IV SCH ×7 (00:41→23:32)
[2018-05-16] MEDS: HYDROMORPHONE HCL INJ/PF 2 MG/ML AMPULE IV PRN ×3 (05:03→18:53)
[2018-05-16] MEDS: CLONIDINE HCL 0.1 MG TABLET PO SCH ×3 (05:03→22:43)
[2018-05-16] MEDS: CALCITRIOL 0.25 MCG CAPSULE PO SCH (09:25)
[2018-05-16] MEDS: ESCITALOPRAM OXALATE 10 MG TABLET PO SCH (09:26)
[2018-05-16] MEDS: DIVALPROEX SODIUM 500 MG TAB.SR.24H PO SCH ×2 (09:27→22:43)
[2018-05-16] MEDS: ARIPIPRAZOLE 5 MG TABLET PO SCH (09:27)
[2018-05-16] MEDS: LISINOPRIL 10 MG TABLET PO SCH ×2 (09:27→22:43)
[2018-05-16] MEDS: ENOXAPARIN SODIUM INJ 30 MG/0.3 ML DISP.SYRIN SUBCUT SCH (09:28)
--- NOTE | 2018-05-16 12:36 | PDOC PROGRESS REPORT ---
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 05/11/2018 she presented to ED complaining of persistent chest pain, substernal, radiating to her jaw and right breast. Worsened with movement and coughing. Troponins less than 0.012 x 3. EKG sinus rhythm with left ventricular hypertrophy. And was admitted for chest pain workup. Cardiac a stress of has been planned however it was delayed due to ongoing chest pain. 05/12/2018. No acute events overnight. Patient still complaining constant on and off chest pain. She is explaining to me that chest pain is substernal, pressure-like, last for several hours, 9 out of 10 in severity, worsened by coughing, breathing, and movement. Nonradiating. Patient has history of chronic opiate use, takes Dilaudid at home. Patient is scheduled to have a stress test done however she is been having frequent chest pain and it has been delayed for tomorrow. Patient also pending pain management consult. Nephrology has been consulted patient is not going to receive any hemodialysis, the patient. A 24-hour urine collection has been ordered by boardinghouse keeper. 05/13/2018. Patient still complaining of persistent nausea denies any vomiting. She cannot eat too much because she will feel bloated right after eating. P atjulio had her stress study which was unremarkable patient was notified about negative a stress test study and was told that she could get an EGD and gastric emptying study as outpatient but she stated she would rather stay to get the study done here were done outpatient. She was informed that GI consult is not available until next Wednesday and there is no guarantee if they will do it here. She is still stated that she wants to wait until seen by GI specialist. Patient is also still undergoing 24-hour urine collection by nephrology. Denies any fever, shortness of breath, chills, abdominal pain, diarrhea, constipation or any urinary symptoms. Still having on and off pleuritic chest pain and generalized chronic pain. 05/14/2018. 05/14/2018. She is still complaining of persistent nausea had one episode of vomiting yesterday and one episode of vomiting today. She still having on and off pleuritic chest pain. Cardiac a stress test on 05/13/2018 was negative. Still waiting for GI evaluation for possible EGD and gastric emptying studies. Patient is ambulatory. Patient is complaining of constipation. Is able to pass gas. Denies any fever, chills, shortness of breath, diarrhea or any urinary symptoms. Patient was notified that she could get evaluated by GI as outpatient however she refused to be seen as outpatient and prefers to wait until seen by GI. 05/15/2018. No acute events overnight. Patient still complaining of on and off pleuritic chest pain with persistent nausea. Has not had any vomiting since yesterday. Denies any shortness of breath, chills, fever, abdominal pain, diarrhea, constipation or any urinary symptoms. Still waiting to be evaluated by GI specialist. 05/16/2018. No acute events overnight. Patient has had one episode of nonbloody nonbilious vomiting since yesterday. Has not had any recurrence of her chest pain. Complaining of persistent nausea. Denies any fever, chills, abdominal pain, diarrhea. Patient was informed that she could get a GI follow-up as outpatient where she could be worked up for any underlying GI problem for the ca use of her persistent nausea and chest pain but she is insisting on staying here at [place] until being evaluated by GI specialist. Reason For Visit: CHEST PRESSURE,HYPERTENSION,ESRD,PTSD,MIGRAINE Physical Exam Vital Signs: Temp Pulse Resp BP Pulse Ox 98.2 F 65 16 132/72 H 99 05/16/18 11:22 05/16/18 11:22 05/16/18 11:22 05/16/18 11:22 05/16/18 11:22 Intake & Output 05/15/18 05/16/18 05/17/18 06:59 06:59 06:59 Intake Total 977 1152 275 Balance 977 1152 275 Weight 89.6 kg 91.4 kg General appearance: PRESENT: no acute distress, obese, well-developed, well- nourished Head exam: PRESENT: atraumatic, normocephalic Respiratory exam: PRESENT: clear to auscultation salazar. ABSENT: rales, rhonchi, wheezes Cardiovascular exam: PRESENT: RRR. ABSENT: diastolic murmur, rubs, systolic murmur Neurological exam: PRESENT: alert, awake, oriented to person, oriented to place, oriented to time, oriented to situation, CN II-XII grossly intact. ABSENT: motor sensory deficit Results Laboratory Results: 05/13/18 04:50 05/15/18 06:40 05/11/18 05/11/18 05/11/18 03:45 03:45 06:45 Creatine Kinase 38 CK-MB (CK-2) 0.66 Troponin I < 0.012 < 0.012 05/11/18 05/11/18 05/11/18 11:26 11:26 18:00 Creatine Kinase 27 L 26 L CK-MB (CK-2) 0.41 Troponin I < 0.012 05/11/18 18:00 Creatine Kinase CK-MB (CK-2) 0.36 Troponin I < 0.012 Impressions: Chest X-Ray 05/11/18 01:16 IMPRESSION: No acute cardiopulmonary process copyright 2011 [employer]- All Rights Reserved Assessment & Plan - Diagnosis (1) Nausea & vomiting Qualifiers: Vomiting type: cyclical vomiting Is this a current diagnosis for this admission?: Yes Plan: Multifactorial. Could be secondary to chronic opiate abuse or gastroparesis. Pending evaluation by GI for possible upper GI EGD or gastric emptying study. We will continue supportive measures, monitor volume status and electrolytes. (2) Chest pain Qualifiers: Chest pain type: precordial pain Qualified Code(s): R07.2 - Precordial pain Is this a current diagnosis for this admission?: Yes Plan: Still having on and off pleuritic chest pain. Likely not cardiac. Could either be musculoskeletal/anxiety or GI related. Patient has had 2 cardiac catheterization in the past which has both been negative. 05/13/2017 Cardiolite stress test negative. ECG on admission sinus rhythm. Troponins negative x3. (3) Chronic pain syndrome Is this a current diagnosis for this admission?: Yes Plan: History of chronic pain, patient has been seen by pain management as outpatient. Chronic opiate use. Takes Dilaudid at home. Seen by pain management and her pain medications has been reconciled. Outpatient follow-up with [facility]. (4) Hypertension Is this a current diagnosis for this admission?: Yes Plan: Better controlled. Amlodipine 5 mg p.o. daily, lisinopril 10 mg p.o. daily. Adjust meds as needed. Outpatient PCP follow-up. (5) Migraine headache Qualifiers: Migraine type: unspecified Status migrainosus presence: without status migrainosus Intractability: not intractable Qualified Code(s): G43.909 - Migraine, unspecified, not intractable, without status migrainosus Is this a current diagnosis for this admission?: Yes Plan: Restart home meds. (6) Obesity (BMI 30-39.9) Is this a current diagnosis for this admission?: Yes Plan: Diet and lifestyle modification. (7) Renal osteodystrophy Is this a current diagnosis for this admission?: Yes Plan: Continue current meds. (8) Chronic kidney disease, stage V Is this a current diagnosis for this admission?: Yes Plan: Likely due to chronic hypertension. No uremic symptoms. No sign of volume overload. Nonoliguric. Nephrology on board. Pending 24-hour urine creatinine clearance by nephrology. Does not need hemodialysis at this point as per nephrology note. (9) Constipation due to opioid therapy Is this a current diagnosis for this admission?: Yes Plan: Likely secondary to chronic neck opiate abuse. Started on bowel regimen.
--- NOTE | 2018-05-16 19:36 | PDOC PROGRESS REPORT ---
Subjective Progress Note for:: 05/16/18 Subjective:: Patient continues to be nauseated and claims she is vomiting although the nurses has not seen any vomitus no her seen her actively vomiting. She describes some burning sensation coming from her stomach down to her chest. Her Cardiolite stress test was negative for any ischemic changes. She wanted to see the remedial project manager before she goes home. Her kidney function over the weekend has been stable. Reason For Visit: CHEST PRESSURE,HYPERTENSION,ESRD,PTSD,MIGRAINE Physical Exam Vital Signs: Temp Pulse Resp BP Pulse Ox 98.8 F 65 16 140/72 H 97 05/16/18 14:44 05/16/18 14:44 05/16/18 14:44 05/16/18 14:44 05/16/18 14:44 Intake & Output 05/15/18 05/16/18 05/17/18 06:59 06:59 06:59 Intake Total 977 1152 575 Balance 977 1152 575 Weight 89.6 kg 91.4 kg Exam: General appearance: PRESENT: no acute distress, cooperative, well-developed, well-nourished Head exam: PRESENT: atraumatic, normocephalic Eye exam: PRESENT: conjunctiva pink, PERRLA. ABSENT: scleral icterus Neck exam: ABSENT: JVD Respiratory exam: PRESENT: Normal breath sounds. ABSENT: crackles, rales, rhonchi, unlabored, wheezes Cardiovascular exam: PRESENT: Regular rate rhythm -+S1, +S2. ABSENT: diastolic murmur, systolic murmur GI/Abdominal exam: PRESENT: normal bowel sounds, soft. ABSENT: guarding, mass, tenderness Extremities exam: ABSENT: No edema Neurological exam: PRESENT: alert, awake, oriented to person, place and time. Skin exam: PRESENT: dry, warm, Cardiovascular exam: PRESENT: +S1, +S2 GI/Abdominal exam: PRESENT: normal bowel sounds, soft. ABSENT: organomegaly, t enderness Results Laboratory Results: 05/13/18 04:50 05/15/18 06:40 05/11/18 05/11/18 05/11/18 03:45 03:45 06:45 Creatine Kinase 38 CK-MB (CK-2) 0.66 Troponin I < 0.012 < 0.012 01/23/19 01/23/19 01/23/19 11:26 11:26 18:00 Creatine Kinase 27 L 26 L CK-MB (CK-2) 0.41 Troponin I < 0.012 05/11/18 18:00 Creatine Kinase CK-MB (CK-2) 0.36 Troponin I < 0.012 Impressions: Chest X-Ray 05/11/18 01:16 IMPRESSION: No acute cardiopulmonary process copyright 2011 [employer]- All Rights Reserved Assessment & Plan - Diagnosis (1) Chronic kidney disease, stage V Is this a current diagnosis for this admission?: Yes Plan: Stable. Her nausea and vomiting is most likely related to diabetic gastroparesis rather than uremia. No indication for any initiation of renal replacement therapy at this time. (2) Chest pain Qualifiers: Chest pain type: precordial pain Qualified Code(s): R07.2 - Precordial pain Is this a current diagnosis for this admission?: Yes Plan: Cardiolite stress test was negative. Possibly related to diabetic gastroparesis as well. (3) Nausea & vomiting Qualifiers: Vomiting type: cyclical vomiting Is this a current diagnosis for this admission?: Yes Plan: Again high likelihood for diabetic gastroparesis. Unfortunately there is really no magic treatment for this. Patient has not Phenergan as needed. GI consult pending. (4) Hypertension Is this a current diagnosis for this admission?: Yes Plan: Fairly controlled. (5) Chronic pain syndrome Is this a current diagnosis for this admission?: Yes Plan: On pain medications. - Notes Notes: No further recommendations from nephrology standpoint. We will sign off at this point. - Time Time with patient: 15-25 minutes
[2018-05-16] MEDS: AMLODIPINE BESYLATE 2.5 MG TABLET PO SCH (22:43)
[2018-05-16] MEDS: TRAZODONE HCL 50 MG TABLET PO SCH (22:43)
[2018-05-16] MEDS: ZOLPIDEM TARTRATE 5 MG TABLET PO SCH (22:43)
[2018-05-17] MEDS: HYDROMORPHONE HCL INJ/PF 2 MG/ML AMPULE IV PRN ×2 (01:26→17:33)
[2018-05-17] MEDS: PROMETHAZINE HCL INJ 25 MG/1 ML VIAL IV SCH ×6 (04:08→21:51)
[2018-05-17] MEDS: NITROGLYCERIN 2% OINTMENT 1 GM PACKET TP SCH ×4 (05:28→23:16)
[2018-05-17] MEDS: CLONIDINE HCL 0.1 MG TABLET PO SCH ×3 (05:31→21:52)
[2018-05-17] MEDS: ESCITALOPRAM OXALATE 10 MG TABLET PO SCH (09:10)
[2018-05-17] MEDS: ARIPIPRAZOLE 5 MG TABLET PO SCH (09:10)
[2018-05-17] MEDS: LISINOPRIL 10 MG TABLET PO SCH ×2 (09:10→21:52)
[2018-05-17] MEDS: CALCITRIOL 0.25 MCG CAPSULE PO SCH (09:11)
[2018-05-17] MEDS: ENOXAPARIN SODIUM INJ 30 MG/0.3 ML DISP.SYRIN SUBCUT SCH (09:12)
[2018-05-17] MEDS: DIVALPROEX SODIUM 500 MG TAB.SR.24H PO SCH ×2 (09:14→21:53)
[2018-05-17] MEDS: HYDROMORPHONE HCL 2 MG TABLET PO PRN (09:20)
--- NOTE | 2018-05-17 15:04 | PDOC CONSULTATION ---
Consultation Consult Date: 05/17/18 Attending physician:: MEGAN GODFREY Consult reason:: Nausea and vomiting History of Present Illness Admission Date/PCP: 05/11/18 06:39 History of Present Illness: DAREN ROSS is a 52 year old female patient has been admitted for several days with initially NCCP then continues to have nausea and vomiting patient apparently had seen Dr Taveras in the past and had EGD done she was told that she had a possible stricture she required dilation she denies any melena she does require pain medication patient says no NSAID use Past Medical History Cardiac Medical History: Reports: Hyperlipidema, Hypertension Denies: Coronary Artery Disease, Myocardial Infarction Pulmonary Medical History: Reports: Sleep Apnea Denies: Asthma, Bronchitis, Chronic Obstructive Pulmonary Disease (COPD), Pneumonia EENT Medical History: Reports: Eyes - Occasional blurry vision usually assoc iated with migraine Denies: Ears, Nose Neurological Medical History: Reports: Migraine Denies: Ischemic CVA, Seizures Endocrine Medical History: Reports: Diabetes Mellitus Type 2 Renal/ Medical History: Reports: End Stage Renal Disease Malignancy Medical History: Reports: None GI Medical History: Reports: Gastroesophageal Reflux Disease, Other - Possible gastroparesis Musculoskeltal Medical History: Reports: Arthritis - right knee, Fibromyalgia Skin Medical History: Denies: Eczema, Psoriasis Psychiatric Medical History: Reports: Depression, Post Traumatic Stress Disorder Traumatic Medical History: Reports: None Hematology: Reports: Anemia Infectious Medical History: Reports: None Past Surgical History Past Surgical History: Reports: Appendectomy, Cardiac Catheterization - 3, last one 3 years ago showing no blockages, Cholecystectomy, Hysterectomy, Orthopedic Surgery - RIGHT ANKLE SURGERY 01/2011, shoulder surgery 12/2106, Thyroidectomy, Vascular Surgery - port a cath R upper chest Denies: Pacemaker Social History Lives with: Family Smoking Status: Never Smoker Frequency of Alcohol Use: None Hx Recreational Drug Use: No Drugs: None Hx Prescription Drug Abuse: No - Advance Directive Resuscitation Status: Full Code Family History Family History: CAD, CVA, Hypertension Parental Family History Reviewed: Yes Children Family History Reviewed: Unknown Sibling(s) Family History Reviewed.: Unknown Medication/Allergy Home Medications: Aripiprazole [Abilify 15 mg Tablet] 15 mg PO DAILY 03/14/17 Clonidine HCl [Catapres 0.3 mg Tablet] 0.3 mg PO Q8 03/14/17 Divalproex Sodium [Divalproex Sodium ER] 500 mg PO Q12 03/14/17 Escitalopram Oxalate [Lexapro] 20 mg PO DAILY 03/14/17 Eszopiclone [Lunesta] 3 mg PO QHS 03/14/17 Furosemide [Lasix 40 mg Tablet] 20 mg PO MOFR@0800 03/14/17 Gabapentin [Neurontin 300 mg Capsule] 300 mg PO Q12 03/14/17 Lisinopril [Zestril] 10 mg PO Q12 03/14/17 Methocarbamol [Robaxin 750 mg Tablet] 750 mg PO Q6HP PRN 03/14/17 Calcitriol 1.5 mcg PO MOWEFR@1000 07/13/17 Metoclopramide HCl [Reglan] 10 mg PO BID 07/13/17 Hydromorphone HCl [Dilaudid 2 mg Tablet] 4 mg PO Q6HP PRN 05/11/18 Nitroglycerin [Nitrostat 0.4 mg (1/150 Gr) Tabs 25/Bottle] 1 tab SL Q5MP PRN 05/11/18 Promethazine HCl [Phenergan 25 mg Tablet] 50 mg PO Q6HP PRN 05/11/18 Allergies/Adverse Reactions: codeine [Codeine] Allergy (Mild, Verified 03/24/18 07:26) Itching ketorolac tromethamine [From Toradol] Allergy (Unknown, Verified 03/24/18 07:26) Anxiety nalbuphine HCl [From Nubain] Allergy (Unknown, Verified 03/24/18 07:26) Anxiety ondansetron HCl [From Zofran] Allergy (Unknown, Verified 03/24/18 07:26) Itching droperidol [Droperidol] Allergy (Verified 03/24/18 07:26) reports heart racing, doesn't like how it makes her feel Review of Systems Constitutional: ABSENT: fever(s), headache(s), night sweats, weakness Eyes: ABSENT: visual disturbances Ears: ABSENT: hearing changes Nose, Mouth, and Throat: ABSENT: mouth pain, sore throat Cardiovascular: ABSENT: edema, orthropnea, palpitations Respiratory: ABSENT: dyspnea, hemoptysis Gastrointestinal: ABSENT: dysphagia, hematemesis, melena Genitourinary: ABSENT: dysuria, hematuria Musculoskeletal: ABSENT: deformity, joint swelling Integumentary: ABSENT: lesions, pruritus Neurological: ABSENT: syncope, tingling, tremor(s), vertigo Endocrine: ABSENT: polydipsia, polyphagia, polyuria Hematologic/Lymphatic: ABSENT: easy bruising Physical Exam Vital Signs: Temp Pulse Resp BP Pulse Ox 98.2 F 67 16 139/72 H 100 05/17/18 07:22 05/17/18 14:00 05/17/18 07:22 05/17/18 07:22 05/17/18 07:22 Intake & Output 05/16/18 05/17/18 05/18/18 06:59 06:59 06:59 Intake Total 1152 575 Balance 1152 575 Weight 91.4 kg 90.2 kg General appearance: PRESENT: no acute distress, well-developed, well-nourished Head exam: PRESENT: atraumatic, normocephalic Eye exam: PRESENT: EOMI. ABSENT: nystagmus, scleral icterus Mouth exam: PRESENT: moist, neck supple Throat exam: ABSENT: tonsillar exudate, tonsillogmegaly Neck exam: ABSENT: meningismus, tenderness, thyromegaly Respiratory exam: PRESENT: symmetrical, unlabored. ABSENT: tachypnea, wheezes Cardiovascular exam: PRESENT: RRR, +S1, +S2 GI/Abdominal exam: PRESENT: soft. ABSENT: rebound, rigid, tenderness Extremities exam: ABSENT: joint swelling Musculoskeletal exam: PRESENT: full ROM Neurological exam: PRESENT: oriented to time, oriented to situation, CN II-XII grossly intact Focused psych exam: ABSENT: restlessness Skin exam: PRESENT: normal color. ABSENT: mottled, pallor, urticaria, vesicles Results Laboratory Results: 05/13/18 04:50 05/15/18 06:40 05/11/18 05/11/18 05/11/18 03:45 03:45 06:45 Creatine Kinase 38 CK-MB (CK-2) 0.66 Troponin I < 0.012 < 0.012 05/11/18 05/11/18 05/11/18 11:26 11:26 18:00 Creatine Kinase 27 L 26 L CK-MB (CK-2) 0.41 Troponin I < 0.012 05/11/18 18:00 Creatine Kinase CK-MB (CK-2) 0.36 Troponin I < 0.012 Impressions: Chest X-Ray 05/11/18 01:16 IMPRESSION: No acute cardiopulmonary process copyright 2011 [employer] All Rights Reserved Assessment & Plan - Diagnosis (1) Nausea & vomiting Qualifiers: Vomiting type: cyclical vomiting Is this a current diagnosis for this admission?: Yes Plan: patient may have a stricture per history she also continues to have symptoms she has been here for several days but no upper gi series was ordered I have scheduled the patient for an EGD Risks, benefits and alternatives are discussed with the patient in detail further recommendations to follow she will need Propofol sedation - Time Time Spent: 50 to 70 Minutes
--- NOTE | 2018-05-17 17:50 | PDOC PROGRESS REPORT ---
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 05/11/2018 she presented to ED complaining of persistent chest pain, substernal, radiating to her jaw and right breast. Worsened with movement and coughing. Troponins less than 0.012 x 3. EKG sinus rhythm with left ventricular hypertrophy. And was admitted for chest pain workup. Cardiac a stress of has been planned however it was delayed due to ongoing chest pain. 05/12/2018. No acute events overnight. Patient still complaining constant on and off chest pain. She is explaining to me that chest pain is substernal, pressure-like, last for several hours, 9 out of 10 in severity, worsened by coughing, breathing, and movement. Nonradiating. Patient has history of chronic opiate use, takes Dilaudid at home. Patient is scheduled to have a stress test done however she is been having frequent chest pain and it has been delayed for tomorrow. Patient also pending pain management consult. Nephrology has been consulted patient is not going to receive any hemodialysis, the patient. A 24-hour urine collection has been ordered by competitive shopper. 05/13/2018. Patient still complaining of persistent nausea denies any vomiting. She cannot eat too much because she will feel bloated right after eating. P atjulio had her stress study which was unremarkable patient was notified about negative a stress test study and was told that she could get an EGD and gastric emptying study as outpatient but she stated she would rather stay to get the study done here were done outpatient. She was informed that GI consult is not available until next Wednesday and there is no guarantee if they will do it here. She is still stated that she wants to wait until seen by GI specialist. Patient is also still undergoing 24-hour urine collection by nephrology. Denies any fever, shortness of breath, chills, abdominal pain, diarrhea, constipation or any urinary symptoms. Still having on and off pleuritic chest pain and generalized chronic pain. 05/14/2018. 05/14/2018. She is still complaining of persistent nausea had one episode of vomiting yesterday and one episode of vomiting today. She still having on and off pleuritic chest pain. Cardiac a stress test on 05/13/2018 was negative. Still waiting for GI evaluation for possible EGD and gastric emptying studies. Patient is ambulatory. Patient is complaining of constipation. Is able to pass gas. Denies any fever, chills, shortness of breath, diarrhea or any urinary symptoms. Patient was notified that she could get evaluated by GI as outpatient however she refused to be seen as outpatient and prefers to wait until seen by GI. 05/15/2018. No acute events overnight. Patient still complaining of on and off pleuritic chest pain with persistent nausea. Has not had any vomiting since yesterday. Denies any shortness of breath, chills, fever, abdominal pain, diarrhea, constipation or any urinary symptoms. Still waiting to be evaluated by GI specialist. 05/16/2018. No acute events overnight. Patient has had one episode of nonbloody nonbilious vomiting since yesterday. Has not had any recurrence of her chest pain. Complaining of persistent nausea. Denies any fever, chills, abdominal pain, diarrhea. Patient was informed that she could get a GI follow-up as outpatient where she could be worked up for any underlying GI problem for the ca use of her persistent nausea and chest pain but she is insisting on staying here at [place] until being evaluated by GI specialist. 2017. No acute events overnight. Patient is still complaining of persistent nausea but denies any vomiting. She has not had any recurrence of her chest pain for the last 24 hours. Patient was seen by GI today. Scheduled for EGD tomorrow. P.o. after midnight. Patient denies any fever, chills, abdominal pain, diarrhea. Reason For Visit: CHEST PRESSURE,HYPERTENSION,ESRD,PTSD,MIGRAINE Physical Exam Vital Signs: Temp Pulse Resp BP Pulse Ox 98.6 F 58 L 18 141/88 H 100 05/17/18 15:16 05/17/18 15:16 05/17/18 15:16 05/17/18 15:16 05/17/18 15:16 Intake & Output 05/16/18 05/17/18 05/18/18 06:59 06:59 06:59 Intake Total 1152 575 375 Balance 1152 575 375 Weight 91.4 kg 90.2 kg General appearance: PRESENT: no acute distress, well-developed, well-nourished Respiratory exam: PRESENT: clear to auscultation salazar. ABSENT: rales, rhonchi, wheezes Cardiovascular exam: PRESENT: RRR. ABSENT: diastolic murmur, rubs, systolic murmur GI/Abdominal exam: PRESENT: normal bowel sounds, soft. ABSENT: distended, guarding, mass, organolmegaly, rebound, tenderness Neurological exam: PRESENT: alert, awake, oriented to person, oriented to place, oriented to time, oriented to situation, CN II-XII grossly intact. ABSENT: motor sensory deficit Results Laboratory Results: 05/13/18 04:50 05/15/18 06:40 05/11/18 05/11/18 05/11/18 03:45 03:45 06:45 Creatine Kinase 38 CK-MB (CK-2) 0.66 Troponin I < 0.012 < 0.012 05/11/18 05/11/18 05/11/18 11:26 11:26 18:00 Creatine Kinase 27 L 26 L CK-MB (CK-2) 0.41 Troponin I < 0.012 05/11/18 18:00 Creatine Kinase CK-MB (CK-2) 0.36 Troponin I < 0.012 Impressions: Chest X-Ray 05/11/18 01:16 IMPRESSION: No acute cardiopulmonary process copyright 2011 [employer]- All Rights Reserved Assessment & Plan - Diagnosis (1) Nausea & vomiting Qualifiers: Vomiting type: cyclical vomiting Is this a current diagnosis for this admission?: Yes Plan: Multifactorial. Could be secondary to chronic opiate abuse or gastroparesis. Pending evaluation by GI for possible upper GI EGD or gastric emptying study. We will continue supportive measures, monitor volume status and electrolytes. (2) Chest pain Qualifiers: Chest pain type: precordial pain Qualified Code(s): R07.2 - Precordial pain Is this a current diagnosis for this admission?: Yes Plan: Still having on and off pleuritic chest pain. Likely not cardiac. Could either be musculoskeletal/anxiety or GI related. Patient has had 2 cardiac catheterization in the past which has both been negative. 05/13/2017 Cardiolite stress test negative. ECG on admission sinus rhythm. Troponins negative x3. (3) Chronic pain syndrome Is this a current diagnosis for this admission?: Yes Plan: History of chronic pain, patient has been seen by pain management as outpatient. Chronic opiate use. Takes Dilaudid at home. Seen by pain management and her pain medications has been reconciled. Outpatient follow-up with [place] [facility]. (4) Hypertension Is this a current diagnosis for this admission?: Yes Plan: Better controlled. Amlodipine 5 mg p.o. daily, lisinopril 10 mg p.o. daily. Adjust meds as needed. Outpatient PCP follow-up. (5) Migraine headache Qualifiers: Migraine type: unspecified Status migrainosus presence: without status migrainosus Intractability: not intractable Qualified Code(s): G43.909 - Migraine, unspecified, not intractable, without status migrainosus Is this a current diagnosis for this admission?: Yes Plan: Restart home meds. (6) Obesity (BMI 30-39.9) Is this a current diagnosis for this admission?: Yes Plan: Diet and lifestyle modification. (7) Renal osteodystrophy Is this a current diagnosis for this admission?: Yes Plan: Continue current meds. (8) Chronic kidney disease, stage V Is this a current diagnosis for this admission?: Yes Plan: Likely due to chronic hypertension. No uremic symptoms. No sign of volume overload. Nonoliguric. Nephrology on board. Pending 24-hour urine creatinine clearance by nephrology. Does not need hemodialysis at this point as per nephrology note. (9) Constipation due to opioid therapy Is this a current diagnosis for this admission?: Yes Plan: Likely secondary to chronic neck opiate abuse. Started on bowel regimen.
[2018-05-17] MEDS: AMLODIPINE BESYLATE 2.5 MG TABLET PO SCH (21:52)
[2018-05-17] MEDS: ZOLPIDEM TARTRATE 5 MG TABLET PO SCH (21:52)
[2018-05-17] MEDS: TRAZODONE HCL 50 MG TABLET PO SCH (21:52)
[2018-05-18] MEDS: PROMETHAZINE HCL INJ 25 MG/1 ML VIAL IV SCH ×3 (02:46→09:39)
[2018-05-18] MEDS: HYDROMORPHONE HCL INJ/PF 2 MG/ML AMPULE IV PRN ×2 (03:10→10:27)
[2018-05-18] MEDS: NITROGLYCERIN 2% OINTMENT 1 GM PACKET TP SCH ×2 (05:08→13:39)
[2018-05-18] MEDS: CLONIDINE HCL 0.1 MG TABLET PO SCH ×2 (05:33→13:39)
[2018-05-18 06:53] LABS: ALANINE AMINOTRANSFERASE 21 U/L (9-52); ALBUMIN 2.9 g/dL (3.5-5.0); ALKALINE PHOSPHATASE 98 U/L (38-126); ANION GAP 8 (5-19); ASPARTATE AMINO TRANSFERASE 11 U/L (14-36); BILIRUBIN,DIRECT 0.3 mg/dL (0.0-0.4); BILIRUBIN,TOTAL 0.3 mg/dL (0.2-1.3); BLOOD UREA NITROGEN 39 mg/dL (7-20); CALCIUM 9.5 mg/dL (8.4-10.2); CARBON DIOXIDE 28 mmol/L (22-30); CHLORIDE 105 mmol/L (98-107); GLUCOSE 84 mg/dL (75-110); SODIUM 140.6 mmol/L (137-145); TOTAL PROTEIN 5.9 g/dL (6.3-8.2)
[2018-05-18] MEDS ORDERED: DEXTROSE 5%-NORMAL SALINE 1,000 ML IV PRN (08:28)
[2018-05-18] MEDS ORDERED: PROPOFOL INJ 200 MG/20 ML VIAL IV ONE ×2 (10:56→11:19)
[2018-05-18] MEDS ORDERED: LIDOCAINE 2% INJ-PF (20 MG/ML) 10 ML AMPUL ONE (11:19)
[2018-05-18] MEDS ORDERED: ONDANSETRON HCL INJ/PF 4 MG/2 ML SDV ONE (11:19)
[2018-05-18] MEDS ORDERED: PROMETHAZINE HCL INJ 25 MG/1 ML VIAL ONE (11:48)
--- NOTE | 2018-05-18 12:15 | Operative Report ---
Operative Report DATE OF SURGERY: 05/18/18 Operative Report: The risks benefits and alternatives of the procedure explained to the patient in detail and informed consent is obtained.A GIF Olympus video scope was inserted into the patient's mouth and hypopharynx, the esophagus is identified intubated and insufflated, the scope was then advanced through the esophagus stomach and duodenum, retroflexion maneuver is done, the esophagus stomach and first and second portions of the duodenum examined. PREOPERATIVE DIAGNOSIS: Nausea vomiting POSTOPERATIVE DIAGNOSIS: Pangastritis, nodular suggestive of Helicobacter pylori OPERATION: EGD with biopsy SURGEON: MEGAN GODFREY ANESTHESIA: LMAC TISSUE REMOVED OR ALTERED: As noted above. COMPLICATIONS: None. ESTIMATED BLOOD LOSS: None. INTRAOPERATIVE FINDINGS: As noted above. PROCEDURE: Patient tolerated the procedure well. No immediate postprocedure complications are noted. Patient is sent back to her room in good condition. Resume regular diet as tolerated. Resume previous activity level. Wait on the biopsies. Should be able to be discharged and follow-up as outpatient.
[2018-05-18] MEDS: CALCITRIOL 0.25 MCG CAPSULE PO SCH (13:38)
[2018-05-18] MEDS: DIVALPROEX SODIUM 500 MG TAB.SR.24H PO SCH (13:38)
[2018-05-18] MEDS: ESCITALOPRAM OXALATE 10 MG TABLET PO SCH (13:39)
[2018-05-18] MEDS: ARIPIPRAZOLE 5 MG TABLET PO SCH (13:39)
[2018-05-18] MEDS: LISINOPRIL 10 MG TABLET PO SCH (13:39)
[2018-05-18] MEDS: ENOXAPARIN SODIUM INJ 30 MG/0.3 ML DISP.SYRIN SUBCUT SCH (13:40)
[2018-05-18] MEDS ORDERED: PROMETHAZINE HCL INJ 25 MG/1 ML VIAL IV ONE (15:45)
[2018-05-18 16:45] VITALS: BP 124/71
--- NOTE | 2018-05-20 05:35 | PDOC DISCHARGE SUMMARY ---
General - Admit/Disc Date/PCP Admission Date/Primary Care Provider: 05/11/18 06:39 Discharge Date: 05/18/18 - Discharge Diagnosis (1) Nausea & vomiting Is this a current diagnosis for this admission?: Yes (2) Chest pain Is this a current diagnosis for this admission?: Yes (3) Chronic pain syndrome Is this a current diagnosis for this admission?: Yes (4) Hypertension Is this a current diagnosis for this admission?: Yes (5) Migraine headache Is this a current diagnosis for this admission?: Yes (6) Obesity (BMI 30-39.9) Is this a current diagnosis for this admission?: Yes (7) Renal osteodystrophy Is this a current diagnosis for this admission?: Yes (8) Chronic kidney disease, stage V Is this a current diagnosis for this admission?: Yes (9) Constipation due to opioid therapy Is this a current diagnosis for this admission?: Yes (10) Gastritis Is this a current diagnosis for this admission?: Yes - Additional Information Resuscitation Status: Full Code Discharge Diet: As Tolerated Discharge Activity: Activity As Tolerated Prescriptions: Amlodipine Besylate [Norvasc 2.5 mg Tablet] 5 mg PO QHS 30 Days #30 tablet Pantoprazole Sodium [Protonix] 40 mg PO BID 42 Days #82 tablet.dr Home Medications: Aripiprazole [Abilify 15 mg Tablet] 15 mg PO DAILY 03/14/17 Clonidine HCl [Catapres 0.3 mg Tablet] 0.3 mg PO Q8 03/14/17 Divalproex Sodium [Divalproex Sodium ER] 500 mg PO Q12 03/14/17 Escitalopram Oxalate [Lexapro] 20 mg PO DAILY 03/14/17 Eszopiclone [Lunesta] 3 mg PO QHS 03/14/17 Furosemide [Lasix 40 mg Tablet] 20 mg PO MOFR@0800 03/14/17 Gabapentin [Neurontin 300 mg Capsule] 300 mg PO Q12 03/14/17 Lisinopril [Zestril] 10 mg PO Q12 03/14/17 Methocarbamol [Robaxin 750 mg Tablet] 750 mg PO Q6HP PRN 03/14/17 Calcitriol 1.5 mcg PO MOWEFR@1000 07/13/17 Metoclopramide HCl [Reglan] 10 mg PO BID 07/13/17 Hydromorphone HCl [Dilaudid 2 mg Tablet] 4 mg PO Q6HP PRN 05/11/18 Nitroglycerin [Nitrostat 0.4 mg (1/150 Gr) Tabs 25/Bottle] 1 tab SL Q5MP PRN 05/11/18 Promethazine HCl [Phenergan 25 mg Tablet] 50 mg PO Q6HP PRN 05/11/18 Amlodipine Besylate [Norvasc 2.5 mg Tablet] 5 mg PO QHS 30 Days #30 tablet 05/18/18 Pantoprazole Sodium [Protonix] 40 mg PO BID 42 Days #82 tablet. 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 05/11/2018 she presented to ED complaining of persistent chest pain, substernal, radiating to her jaw and right breast. Worsened with movement and coughing. Troponins less than 0.012 x 3. EKG sinus rhythm with left ventricular hypertrophy. And was admitted for chest pain workup. Cardiac a stress of has been planned however it was delayed due to ongoing chest pain. Hospital Course Hospital Course: (1) Nausea & vomiting Multifactorial. Could be secondary to chronic opiate abuse or gastroparesis. Pending evaluation by GI for possible upper GI EGD or gastric emptying study. We will continue supportive measures, monitor volume status and electrolytes. (2) Chest pain Still having on and off pleuritic chest pain. Likely not cardiac. Could either be musculoskeletal/anxiety or GI related. Patient has had 2 cardiac catheterization in the past which has both been negative. 05/13/2017 Cardiolite stress test negative. ECG on admission sinus rhythm. Troponins negative x3. (3) Chronic pain syndrome History of chronic pain, patient has been seen by pain management as outpatient. Chronic opiate use. Takes Dilaudid at home. Seen by pain management and her pain medications has been reconciled. Outpatient follow-up with [place] [facility]. Home health was arranged for help with medication administration. (4) Hypertension Better controlled. Amlodipine 5 mg p.o. daily, lisinopril 10 mg p.o. daily. Adjust meds as needed. Follow-up with PCP Gudelia Mosley on 05/19/2018. (5) Migraine headache Restarted home meds. (6) Obesity (BMI 30-39.9) Diet and lifestyle modification. (7) Renal osteodystrophy Continue current meds. (8) Chronic kidney disease, stage V Likely due to chronic hypertension. No uremic symptoms. No sign of volume overload. Nonoliguric. Nephrology was on board. Does not need hemodialysis at this point as per nephrology note. Apppintment was made for Dr. Tong tour driver on 05/23/2018 (9) Constipation due to opioid therapy Likely secondary to chronic neck opiate abuse. Started on bowel regimen. (10) Gastritis 05/18/2018 patient had an upper GI endoscopy by GI which showed pangastritis, nodular suggestive of H. pylori. A biopsy was done however results were not available at the time of discharge. Patient was discharged on pantoprazole 40 twice daily for 6 weeks and also an ap pointment was made for her to follow-up with GI Dr. William broadcast news producer 05/25/2018 to discuss the results of gastric biopsy and for ongoing gastro enterology care. Physical Exam Vital Signs: Temp Pulse Resp BP Pulse Ox 98.6 F 93 16 124/71 99 05/18/18 16:39 05/18/18 16:39 05/18/18 16:39 05/18/18 16:39 05/18/18 16:39 Intake & Output 05/18/18 05/19/18 05/20/18 06:59 06:59 06:59 Intake Total 675 75 Output Total 0 Balance 675 75 Weight 90.5 kg General appearance: PRESENT: no acute distress, well-developed, well-nourished Head exam: PRESENT: atraumatic, normocephalic Neck exam: ABSENT: carotid bruit, JVD, lymphadenopathy, thyromegaly Respiratory exam: PRESENT: clear to auscultation salazar. ABSENT: rales, rhonchi, wheezes Cardiovascular exam: PRESENT: RRR. ABSENT: diastolic murmur, rubs, systolic murmur GI/Abdominal exam: PRESENT: normal bowel sounds, soft. ABSENT: distended, guarding, mass, organolmegaly, rebound, tenderness Extremities exam: PRESENT: full ROM. ABSENT: calf tenderness, clubbing, pedal edema Neurological exam: PRESENT: alert, awake, oriented to person, oriented to place, oriented to time, oriented to situation, CN II-XII grossly intact. ABSENT: motor sensory deficit Results Laboratory Results: 05/13/18 04:50 05/18/18 05:50 05/11/18 05/11/18 05/11/18 03:45 03:45 06:45 Creatine Kinase 38 CK-MB (CK-2) 0.66 Troponin I < 0.012 < 0.012 05/11/18 05/11/18 05/11/18 11:26 11:26 18:00 Creatine Kinase 27 L 26 L CK-MB (CK-2) 0.41 Troponin I < 0.012 05/11/18 18:00 Creatine Kinase CK-MB (CK-2) 0.36 Troponin I < 0.012 Impressions: Chest X-Ray 05/11/18 01:16 IMPRESSION: No acute cardiopulmonary process copyright 2010 [employer]- All Rights Reserved Qualifiers - * PATIENT BEING DISCHARGED WITH ANY OF THE FOLLOWING DIAGNOSIS: No VTE patient discharged on overlapping Therapy?: Yes
== END 2018-05-18 17:35 | disposition home or self-care (01) | DRG 391 ==
LOC: ER 00:40 → EH 06:39 → OBSVTOIN 06:39 → INTOOBSV 06:39 → 3S 13:32
PROVIDERS: ADMIT Emergency Medicine; ATTEND Emergency Medicine
PROC: 0DD68ZX Extraction of Stomach, Via Natural or Artificial Opening Endoscopic, Diagnostic (ICD-10-PCS; principal; 2018-05-18 11:00)
DX: K29.70 Gastritis, unspecified, without bleeding (principal); N18.6 End stage renal disease; I12.0 Hypertensive chronic kidney disease with stage 5 chronic kidney disease or end stage renal disease; N25.81 Secondary hyperparathyroidism of renal origin; R07.2 Precordial pain; I16.0 Hypertensive urgency; E11.22 Type 2 diabetes mellitus with diabetic chronic kidney disease; E11.43 Type 2 diabetes mellitus with diabetic autonomic (poly)neuropathy; K31.84 Gastroparesis; E78.00 Pure hypercholesterolemia, unspecified; K21.9 Gastro-esophageal reflux disease without esophagitis; K59.03 Drug induced constipation; T50.7X5A Adverse effect of analeptics and opioid receptor antagonists, initial encounter; F41.8 Other specified anxiety disorders; M54.9 Dorsalgia, unspecified; G43.909 Migraine, unspecified, not intractable, without status migrainosus; F43.10 Post-traumatic stress disorder, unspecified; E66.01 Morbid (severe) obesity due to excess calories; Z68.36 Body mass index [BMI] 36.0-36.9, adult; Z79.891 Long term (current) use of opiate analgesic
CPT/HCPCS: 36415; 43239; 71045; 731; 78452; 80048; 80053; 81001; 82550; 82553; 82575; 82962; 83735; 84484; 85025; 87086; 88305; 88342; 93005; 93010; 93017; 96374; 96375; 99285; A9500; J0780; J1170; J1650; J2270; J2405; J2550; J2704; J2785; J3490; Q9969

== ENCOUNTER 2018-06-02 16:14 | Inpatient (IN) | payer MEDICAID ==
[2018-06-02] MEDS ORDERED: PROMETHAZINE HCL INJ 50 MG/1 ML VIAL IM PRN (16:58)
--- NOTE | 2018-06-02 16:59 | ER Document Report ---
ED Medical Screen (RME) - General Chief Complaint: Vomiting Stated Complaint: STOMACH PAIN, VOMITING Time Seen by Provider: 06/02/18 16:51 Notes: 52 years old female stage IV kidney disease getting ready for dialysis, recently diagnosed with H. pylori infection, been prescribed clarithromycin. Each time she takes clarithromycin, getting abdominal pain and discomfort nauseous and vomited many times. Therefore present to the ED unable to keep anything down. She is also constipated TRAVEL OUTSIDE OF THE [place] IN LAST 30 DAYS: No - Related Data Allergies/Adverse Reactions: codeine [Codeine] Allergy (Mild, Verified 06/02/18 16:14) Itching ketorolac tromethamine [From Toradol] Allergy (Unknown, Verified 06/02/18 16:14) Anxiety nalbuphine HCl [From Nubain] Allergy (Unknown, Verified 06/02/18 16:14) Anxiety ondansetron HCl [From Zofran] Allergy (Unknown, Verified 06/02/18 16:14) Itching droperidol [Droperidol] Allergy (Verified 06/02/18 16:14) reports heart racing, doesn't like how it makes her feel Past Medical History - Past Medical History Cardiac Medical History: Reports: Hx Hypercholesterolemia, Hx Hypertension Denies: Hx Coronary Artery Disease, Hx Heart Attack Pulmonary Medical History: Reports: Hx Sleep Apnea Denies: Hx Asthma, Hx Bronchitis, Hx COPD, Hx Pneumonia Neurological Medical History: Reports: Hx Migraine. Denies: Hx Cerebrovascular Accident, Hx Seizures Endocrine Medical History: Reports: Hx Diabetes Mellitus Type 2 Renal/ Medical History: Reports: Hx End Stage Renal Disease, Hx Renal Insufficiency. Denies: Hx Peritoneal Dialysis GI Medical History: Reports: Hx Gastroesophageal Reflux Disease, Hx Irritable Bowel Musculoskeltal Medical History: Reports Hx Arthritis - right knee, Reports Hx Fibromyalgia, Reports Hx Musculoskeletal Deformity, Reports Hx Musculoskeletal Trauma Skin Medical History: Denies Hx Eczema, Denies Hx Psoriasis Psychiatric Medical History: Reports: Hx Depression, Hx Post Traumatic Stress Disorder Past Surgical History: Reports: Hx Appendectomy, Hx Cardiac Catheterization - 3, last one 3 years ago showing no blockages, Hx Cholecystectomy, Hx Hysterectomy, Hx Orthopedic Surgery - RIGHT ANKLE SURGERY 01/2011, shoulder surgery 12/2106, Hx Thyroid Surgery, Hx Vascular Surgery - port a cath R upper chest. Denies: Hx Pacemaker - Immunizations Hx Diphtheria, Pertussis, Tetanus Vaccination: Yes - 06/17/17 History of Influenza Vaccine for 01/2017 - 06/2017 Season: Yes Influenza Administration Date for 01/2017 - 06/2017 Season: 01/16/17 Physical Exam - Vital signs Vitals: Temp Pulse Resp BP Pulse Ox 98.5 F 110 H 17 159/115 H 100 06/02/18 16:20 06/02/18 16:20 06/02/18 16:20 06/02/18 16:20 06/02/18 16:20 Course - Vital Signs Vital signs: Temp Pulse Resp BP Pulse Ox 98.5 F 110 H 17 159/115 H 100 06/02/18 16:20 06/02/18 16:20 06/02/18 16:20 06/02/18 16:20 06/02/18 16:20
[2018-06-02 17:38] LABS: ABSOLUTE EOSINOPHILS # (AUTO) 0.1 10^3/uL (0.0-0.6); ABSOLUTE LYMPHOCYTES (AUTO) 2.2 10^3/uL (0.5-4.7); ABSOLUTE MONOCYTES (AUTO) 0.4 10^3/uL (0.1-1.4); ABSOLUTE NEUT (AUTO) 2.1 10^3/uL (1.7-8.2); BASOPHILS % (AUTO) 0.8 % (0-2); EOSINOPHILS % (AUTO) 1.2 % (0-6); HEMATOCRIT 36.3 % (36.0-47.0); HEMOGLOBIN 12.3 g/dL (12.0-15.5); LYMPHOCYTES % (AUTO) 45.5 % (13-45); MEAN CORPUSCULAR HEMOGLOBIN 31.4 pg (27.0-33.4); MEAN CORPUSCULAR HGB CONC 33.9 g/dL (32.0-36.0); MEAN CORPUSCULAR VOLUME 93 fl (80-97); MONOCYTES % (AUTO) 9.1 % (3-13); PLATELET COUNT 131 10^3/uL (150-450); RED BLOOD COUNT 3.92 10^6/uL (3.72-5.28); RED CELL DISTRIBUTION WIDTH 13.8 % (11.5-14.0); SEGMENTED NEUTROPHILS % (AUTO) 43.4 % (42-78); TOTAL CELLS COUNTED % (AUTO) 100 %; WHITE BLOOD COUNT 4.9 10^3/uL (4.0-10.5)
[2018-06-02 18:11] LABS: ALANINE AMINOTRANSFERASE 16 U/L (9-52); ALBUMIN 3.8 g/dL (3.5-5.0); ALKALINE PHOSPHATASE 61 U/L (38-126); ANION GAP 11 (5-19); ASPARTATE AMINO TRANSFERASE 14 U/L (14-36); BILIRUBIN,DIRECT 0.6 mg/dL (0.0-0.4); BILIRUBIN,TOTAL 0.6 mg/dL (0.2-1.3); BLOOD UREA NITROGEN 36 mg/dL (7-20); CARBON DIOXIDE 25 mmol/L (22-30); CHLORIDE 105 mmol/L (98-107); GLUCOSE 95 mg/dL (75-110); SODIUM 140.7 mmol/L (137-145); TOTAL PROTEIN 7.1 g/dL (6.3-8.2)
[2018-06-02] MEDS ORDERED: NORMAL SALINE 1000 ML 1,000 ML IV ONE (18:21)
[2018-06-02] MEDS ORDERED: DIPHENHYDRAMINE HCL 50 MG/ML VIAL IV ONE (18:29)
--- NOTE | 2018-06-02 18:35 | ER Document Report ---
ED General - General Chief Complaint: Vomiting Stated Complaint: STOMACH PAIN, VOMITING Time Seen by Provider: 06/02/18 16:51 Primary Care Provider: SABRINA MONTES MD [Primary Care Provider] - Follow up as needed TRAVEL OUTSIDE OF THE [place] IN LAST 30 DAYS: No - HPI Notes: Patient is a 52-year-old female that presents to the emergency department for chief complaint of nausea and vomiting. Patient reports she is currently being treated for H. pylori. She has been seeing Dr. Pickard for the management of this. Patient is currently on antibiotics for the H. pylori and states she is unable to keep them down. She reports nausea over the last 1-2 months that has become more intense. She states it is waking her up at night. She reports daily emesis. She does state intermittently she has a epigastric abdominal pain that is mild. She denies fevers, chills, dysuria and diarrhea. She does have stage V renal disease and is on the renal transplant list. She reports Dr. Castorena told her she may have 6 months to 1 year prior to requiring dialysis. Patient states she has lost about 20 pounds this month because of the nausea and decreased appetite. Past Medical History: CKD stage V, H pylori Past Surgical History: Reviewed in chart Social History: Denies tobacco and alcohol Family History: Reviewed and noncontributory for presenting illness Allergies: Reviewed, see documented allergy list. REVIEW OF SYSTEMS: CONSTITUTIONAL : No fever No chills No diaphoresis Decreased appetite EENT: No vision changes No congestion No sore throat CARDIOVASCULAR: No chest pain No palpitations RESPIRATORY: No shortness of breath No cough No difficulty breathing GASTROINTESTINAL: abdominal pain nausea vomiting No diarrhea GENITOURINARY: No dysuria No hematuria No difficulty urinating MUSCULOSKELETAL: No back pain No leg pain No arm pain SKIN: No rashes No lesions LYMPHATIC: No swollen, enlarged glands. NEUROLOGICAL: No lightheadedness No headache No weakness No paresthesias PSYCHIATRIC: No anxiety No depression PHYSICAL EXAMINATION: Vital signs reviewed, nursing noted reviewed. GENERAL: Well-appearing, well-nourished and in no acute distress. HEAD: Atraumatic, normocephalic. EYES: Eyes appear normal, extraocular movements intact, sclera anicteric, conjunctiva are normal. ENT: nares patent, oropharynx clear without exudates. Dry mucous membranes. NECK: Normal range of motion, supple without lymphadenopathy LUNGS: Breath sounds clear to auscultation bilaterally and equal. No wheezes rales or rhonchi. HEART: Tachycardic rate and regular rhythm without murmurs ABDOMEN: Soft, nontender, normoactive bowel sounds. No rebound, guarding, or rigidity. No masses appreciated. EXTREMITIES: Nontender, good range of motion, no pitting or edema. NEUROLOGICAL: No focal neurological deficits. Moves all extremities spontaneously Motor and sensory grossly intact on exam. PSYCH: Normal mood, normal affect. SKIN: Warm, Dry, normal turgor, no rashes or lesions noted on exposed skin - Related Data Allergies/Adverse Reactions: codeine [Codeine] Allergy (Mild, Verified 06/02/18 16:14) Itching ketorolac tromethamine [From Toradol] Allergy (Unknown, Verified 06/02/18 16:14) Anxiety nalbuphine HCl [From Nubain] Allergy (Unknown, Verified 06/02/18 16:14) Anxiety ondansetron HCl [From Zofran] Allergy (Unknown, Verified 06/02/18 16:14) Itching droperidol [Droperidol] Allergy (Verified 06/02/18 16:14) reports heart racing, doesn't like how it makes her feel Past Medical History - Social History Smoking Status: Never Smoker Chew tobacco use (# tins/day): No Frequency of alcohol use: None Drug Abuse: None Family History: CAD, CVA, Hypertension Patient has suicidal ideation: No Patient has homicidal ideation: No - Past Medical History Cardiac Medical History: Reports: Hx Hypercholesterolemia, Hx Hypertension Denies: Hx Coronary Artery Disease, Hx Heart Attack Pulmonary Medical History: Reports: Hx Sleep Apnea Denies: Hx Asthma, Hx Bronchitis, Hx COPD, Hx Pneumonia Neurological Medical History: Reports: Hx Migraine. Denies: Hx Cerebrovascular Accident, Hx Seizures Endocrine Medical History: Reports: Hx Diabetes Mellitus Type 2 Renal/ Medical History: Reports: Hx End Stage Renal Disease, Hx Renal Insufficiency. Denies: Hx Peritoneal Dialysis GI Medical History: Reports: Hx Gastroesophageal Reflux Disease, Hx Irritable Bowel Musculoskeletal Medical History: Reports Hx Arthritis - right knee, Reports Hx Fibromyalgia, Reports Hx Musculoskeletal Deformity, Reports Hx Musculoskeletal Trauma Skin Medical History: Denies Hx Eczema, Denies Hx Psoriasis Psychiatric Medical History: Reports: Hx Depression, Hx Post Traumatic Stress Disorder Past Surgical History: Reports: Hx Appendectomy, Hx Cardiac Catheterization - 3, last one 3 years ago showing no blockages, Hx Cholecystectomy, Hx Hysterectomy, Hx Orthopedic Surgery - RIGHT ANKLE SURGERY 01/2011, shoulder surgery 12/2106, Hx Thyroid Surgery, Hx Vascular Surgery - port a cath R upper chest. Denies: Hx Pacemaker - Immunizations Hx Diphtheria, Pertussis, Tetanus Vaccination: Yes - 06/17/17 Hx Pneumococcal Vaccination: 04/19/17 Physical Exam - Vital signs Vitals: Temp Pulse Resp BP Pulse Ox 98.5 F 110 H 17 159/115 H 100 06/02/18 16:20 06/02/18 16:20 06/02/18 16:20 06/02/18 16:20 06/02/18 16:20 Course - Re-evaluation Re-evalutation: 06/02/18 18:33 Vitals reviewed. Nursing notes reviewed. Patient is tachycardic and appears dehydrated. She has had poor oral intake. Patient started on IV hydration. After initial evaluation she started complaining of a headache and will be given fluids and Benadryl in combination with the Phenergan she is already received. 06/02/18 19:17 Patient reevaluated. Her headache has improved but not completely resolved. Compazine will be added for further migraine treatment. Patient has a creatinine over 6 today which is a significant increase from her baseline which is around 4.6-4.9. Her elevated creatinine is likely related to dehydration and poor oral intake. Patient will be admitted to the hospital for IV hydration a nd reevaluation of acute on chronic renal failure. Case discussed with Dr. Ledezma who accepts admission. Patient in agreement with plan of care. Patient's care was discussed with Dr. Tong who has seen this patient in the hospital previously. She agrees that her renal insufficiency today is likely related to dehydration. She recommends resuscitating with fluids and reevaluating her creatinine function in the morning. Laboratory 06/02/18 06/02/18 17:28 17:28 WBC 4.9 RBC 3.92 Hgb 12.3 Hct 36.3 MCV 93 MCH 31.4 MCHC 33.9 RDW 13.8 Plt Count 131 L Seg Neutrophils % 43.4 Lymphocytes % 45.5 H Monocytes % 9.1 Eosinophils % 1.2 Basophils % 0.8 Absolute Neutrophils 2.1 Absolute Lymphocytes 2.2 Absolute Monocytes 0.4 Absolute Eosinophils 0.1 Absolute Basophils 0.0 Sodium 140.7 Potassium 4.0 Chloride 105 Carbon Dioxide 25 Anion Gap 11 BUN 36 H Creatinine 6.07 H Est GFR ( Amer) 9 L Est GFR (Non-Af Amer) 7 L Glucose 95 Calcium 9.0 Total Bilirubin 0.6 Direct Bilirubin 0.6 H Neonat Total Bilirubin Not Reportable Neonat Direct Bilirubin Not Reportable Neonat Indirect Bili Not Reportable AST 14 ALT 16 Alkaline Phosphatase 61 Total Protein 7.1 Albumin 3.8 Valproic Acid 84.9 06/02/18 19:23 - Vital Signs Vital signs: Temp Pulse Resp BP Pulse Ox 98.2 F 110 H 21 H 180/116 H 96 06/02/18 18:39 06/02/18 16:20 06/02/18 19:01 06/02/18 19:01 06/02/18 19:01 - Laboratory Result Diagrams: 06/02/18 17:28 06/02/18 17:28 Laboratory results interpreted by me: 06/02/18 06/02/18 17:28 17:28 Plt Count 131 L Lymphocytes % 45.5 H BUN 36 H Creatinine 6.07 H Est GFR ( Amer) 9 L Est GFR (Non-Af Amer) 7 L Direct Bilirubin 0.6 H Discharge - Discharge Clinical Impression: Dehydration Acute on chronic renal failure Qualifiers: Acute renal failure type: unspecified Chronic kidney disease stage: stage 5, not on chronic dialysis Qualified Code(s): N17.9 - Acute kidney failure, unspecified Nausea and vomiting Qualifiers: Vomiting type: unspecified Vomiting Intractability: non-intractable Qualified Code(s): R11.2 - Nausea with vomiting, unspecified Condition: Stable Disposition: ADMITTED OBSERVATION Admitting Provider: Hospitalist Unit Admitted: Telemetry Referrals: SABRINA MONTES MD [Primary Care Provider] - Follow up as needed
[2018-06-02] MEDS ORDERED: PROCHLORPERAZINE EDISYLATE INJ 10 MG/2 ML VIAL IM ONE (19:14)
[2018-06-02] MEDS ORDERED: LISINOPRIL 10 MG TABLET PO ONE (19:22)
[2018-06-02] MEDS ORDERED: CLONIDINE HCL 0.2 MG TABLET PO ONE (19:22)
[2018-06-02] MEDS ORDERED: AMLODIPINE BESYLATE 2.5 MG TABLET PO ONE (19:23)
[2018-06-02] MEDS ORDERED: METOPROLOL TARTRATE PF/INJ 5 MG/5 ML SDV IV ONE (19:47)
[2018-06-02 19:55] LABS: CREATINE KINASE MB 0.83 ng/mL (<4.55); TROPONIN I 0.015 ng/mL
[2018-06-02] MEDS ORDERED: MAG HYDROX/AL HYDROX/SIMETH SUSP 30 ML UDCUP PO PRN (20:32)
[2018-06-02] MEDS ORDERED: IPRATROPIUM/ALBUTEROL 0.5-2.5 MG/3 ML AMPUL NEB PRN (20:32)
[2018-06-02] MEDS ORDERED: NORMAL SALINE 1000 ML 1,000 ML IV SCH (20:45)
[2018-06-02 21:55] LABS: URINE AMPHETAMINES SCREEN NEGATIVE; URINE BARBITURATES SCREEN NEGATIVE; URINE BENZODIAZEPINES SCREEN NEGATIVE; URINE COCAINE SCREEN NEGATIVE; URINE MARIJUANA (THC) SCREEN NEGATIVE; URINE METHADONE SCREEN NEGATIVE; URINE PHENCYCLIDINE SCREEN NEGATIVE
[2018-06-02] MEDS ORDERED: PROMETHAZINE HCL INJ 25 MG/1 ML VIAL ONE (23:33)
[2018-06-02] MEDS: HEPARIN SOD (PORCINE) 5,000 UNIT/ML 1 ML SYRINGE SUBCUT SCH (23:36)
[2018-06-03] MEDS: ACETAMINOPHEN 325 MG TABLET PO PRN (00:06)
[2018-06-03] MEDS: PROMETHAZINE HCL 25 MG TABLET PO PRN ×2 (00:06→10:00)
[2018-06-03] MEDS: NORMAL SALINE 1000 ML 1,000 ML IV PRN ×2 (00:16→04:25)
[2018-06-03] MEDS ORDERED: DEXTROSE 40% GEL 15 GM TUBE PO PRN (00:30)
[2018-06-03] MEDS ORDERED: GLUCAGON,HUMAN RECOMB 1 MG INJ IM PRN (00:30)
[2018-06-03] MEDS ORDERED: DEXTROSE 50%-WATER SYRINGE 12.5 GM/25 ML DOSE IV PRN (00:30)
[2018-06-03] MEDS ORDERED: DEXTROSE 50%-WATER SYRINGE 25 GM/50 ML DOSE IV PRN (00:30)
[2018-06-03] MEDS ORDERED: ZOLPIDEM TARTRATE 5 MG TABLET PO ONE (00:30)
[2018-06-03] MEDS ORDERED: DEXTROSE 40% GEL 15 GM TUBE X 2 PO PRN (00:30)
[2018-06-03] MEDS ORDERED: LACTULOSE SYRUP 20 GM/30 ML UDCUP PO ONE (05:33)
--- NOTE | 2018-06-03 05:33 | PDOC H&P ---
History of Present Illness Admission Date/PCP: 06/02/18 19:29 SABRINA MONTES MD Patient complains of: Nausea and vomiting History of Present Illness: DAREN ROSS is a 52 year old female with a past medical history of hypertension, diabetes, chronic pain, depression, PTSD, dyslipidemia, H. pylori duodenitis and stage V chronic kidney disease. Patient presents with 2 months of increasing nausea and vomiting of gastric content and poor appetite. She started treatment for H. pylori with clarithromycin, bismuth and a PPI for H. pylori 2 weeks ago without significant improvement in symptoms. She is prompted to seek evaluation in the emergency room and found to have acute on chronic renal failure with a GFR of 9 from 12 2 weeks ago. Patient denies chest pain palpitations nausea or vomiting or [id number] medication use. Urinalysis is pending. She receives symptomatic management with Phenergan, IV saline and referred to the hospitalist for admission. Past Medical History Cardiac Medical History: Reports: Hyperlipidema, Hypertension Denies: Coronary Artery Disease, Myocardial Infarction Pulmonary Medical History: Reports: Sleep Apnea Denies: Asthma, Bronchitis, Chronic Obstructive Pulmonary Disease (COPD), Pneumonia Neurological Medical History: Reports: Migraine Denies: Seizures Endocrine Medical History: Reports: Diabetes Mellitus Type 2, Obesity Renal/ Medical History: Reports: End Stage Renal Disease GI Medical History: Reports: Gastroesophageal Reflux Disease Musculoskeltal Medical History: Reports: Arthritis - right knee, Fibromyalgia Skin Medical History: Denies: Eczema, Psoriasis Psychiatric Medical History: Reports: Depression, Post Traumatic Stress Disorder Hematology: Reports: Anemia Past Surgical History Past Surgical History: Reports: Appendectomy, Cardiac Catheterization - 3, last one 3 years ago showing no blockages, Cholecystectomy, Hysterectomy, Orthopedic Surgery - RIGHT ANKLE SURGERY 01/2011, shoulder surgery 12/2106, Vascular Surgery - port a cath R upper chest Denies: Pacemaker Social History Information Source: Patient, Emergency Med Personnel, [facility] Records Smoking Status: Never Smoker Frequency of Alcohol Use: None Hx Recreational Drug Use: No Drugs: None Hx Prescription Drug Abuse: No - Advance Directive Resuscitation Status: Full Code Family History Family History: CAD, CVA, Hypertension Parental Family History Reviewed: Yes Children Family History Reviewed: Yes Sibling(s) Family History Reviewed.: Yes Medication/Allergy Home Medications: Amoxicillin Trihydrate [Amoxil 500 mg Capsule] 1,000 mg PO Q12 06/02/18 Aripiprazole [Abilify 15 mg Tablet] 15 mg PO DAILY 06/02/18 Bismuth Subsalicylate [Pepto-Bismol] 262 mg PO BID 06/02/18 Calcitriol 1 mcg PO DAILY 06/02/18 Clarithromycin [Biaxin 500 mg Tablet] 500 mg PO Q12 06/02/18 Clonidine HCl [Catapres 0.3 mg Tablet] 0.3 mg PO TID 06/02/18 Divalproex Sodium [Depakote ER 500 mg Tab.sr] 500 mg PO BID 06/02/18 Escitalopram Oxalate [Lexapro] 40 mg PO DAILY 06/02/18 Eszopiclone [Lunesta] 3 mg PO QHS 06/02/18 Furosemide [Lasix 40 mg Tablet] 40 mg PO DAILY 06/02/18 Gabapentin [Neurontin 100 mg Capsule] 100 mg PO DAILY 06/02/18 Hydromorphone HCl [Dilaudid] 4 mg PO QID 06/02/18 Lisinopril [Zestril] 10 mg PO BID 06/02/18 Metoclopramide HCl [Reglan 10 mg Tablet] 10 mg PO ACHS 06/02/18 Omeprazole 40 mg PO ACBRKFST 06/02/18 Pantoprazole Sodium [Protonix] 40 mg PO BID 06/02/18 Polyethylene Glycol 3350 [Miralax Powder 17 gm/Packet] 17 mg PO DAILY 06/02/18 Promethazine HCl [Phenergan 25 mg Tablet] 50 mg PO QIDP PRN 06/02/18 Allergies/Adverse Reactions: codeine [Codeine] Allergy (Mild, Verified 06/02/18 16:14) Itching ketorolac tromethamine [From Toradol] Allergy (Unknown, Verified 06/02/18 16:14) Anxiety nalbuphine HCl [From Nubain] Allergy (Unknown, Verified 06/02/18 16:14) Anxiety ondansetron HCl [From Zofran] Allergy (Unknown, Verified 06/02/18 16:14) Itching droperidol [Droperidol] Allergy (Verified 06/02/18 16:14) reports heart racing, doesn't like how it makes her feel Review of Systems Constitutional: PRESENT: anorexia, fatigue. ABSENT: chills, fever(s), headache(s), weight gain, weight loss Eyes: ABSENT: visual disturbances Ears: ABSENT: hearing changes Cardiovascular: ABSENT: chest pain, dyspnea on exertion, edema, orthropnea, palpitations Respiratory: ABSENT: cough, hemoptysis Gastrointestinal: PRESENT: as per HPI, abdominal pain, bloating, vomiting. ABSENT: constipation, diarrhea, hematemesis, hematochezia Genitourinary: ABSENT: dysuria, hematuria Musculoskeletal: ABSENT: joint swelling Integumentary: ABSENT: rash, wounds Neurological: ABSENT: abnormal gait, abnormal speech, confusion, dizziness, focal weakness, syncope Psychiatric: ABSENT: anxiety, depression, homidical ideation, suicidal ideation Endocrine: ABSENT: cold intolerance, heat intolerance, polydipsia, polyuria Hematologic/Lymphatic: ABSENT: easy bleeding, easy bruising Physical Exam Vital Signs: Temp Pulse Resp BP Pulse Ox 97.4 F 59 L 16 137/83 H 99 06/03/18 03:21 06/03/18 03:21 06/03/18 03:21 06/03/18 03:21 06/03/18 03:21 Intake & Output 06/01/18 06/02/18 06/03/18 11:59 11:59 11:59 Intake Total 1000 Output Total 400 Balance 600 Weight 88.4 kg General appearance: PRESENT: no acute distress, well-developed, well-nourished Head exam: PRESENT: atraumatic, normocephalic Eye exam: PRESENT: conjunctiva pink, EOMI, PERRLA. ABSENT: scleral icterus Ear exam: PRESENT: normal external ear exam Mouth exam: PRESENT: moist, tongue midline Neck exam: ABSENT: carotid bruit, JVD, lymphadenopathy, thyromegaly Respiratory exam: PRESENT: clear to auscultation salazar. ABSENT: rales, rhonchi, wheezes Cardiovascular exam: PRESENT: RRR. ABSENT: diastolic murmur, rubs, systolic murmur Pulses: PRESENT: normal dorsalis pedis pul Vascular exam: PRESENT: normal capillary refill GI/Abdominal exam: PRESENT: normal bowel sounds, soft. ABSENT: distended, guarding, mass, organolmegaly, rebound, tenderness Rectal exam: PRESENT: deferred Extremities exam: PRESENT: full ROM. ABSENT: calf tenderness, clubbing, pedal edema Neurological exam: PRESENT: alert, awake, oriented to person, oriented to place, oriented to time, oriented to situation, CN II-XII grossly intact. ABSENT: motor sensory deficit Psychiatric exam: PRESENT: appropriate affect, normal mood. ABSENT: homicidal ideation, suicidal ideation Skin exam: PRESENT: dry, intact, warm. ABSENT: cyanosis, rash Results Laboratory Results: 06/02/18 17:28 06/02/18 17:28 06/02/18 06/02/18 17:28 17:28 WBC 4.9 RBC 3.92 Hgb 12.3 Hct 36.3 MCV 93 MCH 31.4 MCHC 33.9 RDW 13.8 Plt Count 131 L Seg Neutrophils % 43.4 Lymphocytes % 45.5 H Monocytes % 9.1 Eosinophils % 1.2 Basophils % 0.8 Absolute Neutrophils 2.1 Absolute Lymphocytes 2.2 Absolute Monocytes 0.4 Absolute Eosinophils 0.1 Absolute Basophils 0.0 Sodium 140.7 Potassium 4.0 Chloride 105 Carbon Dioxide 25 Anion Gap 11 BUN 36 H Creatinine 6.07 H Est GFR ( Amer) 9 L Est GFR (Non-Af Amer) 7 L Glucose 95 Calcium 9.0 Total Bilirubin 0.6 AST 14 ALT 16 Alkaline Phosphatase 61 Total Protein 7.1 Albumin 3.8 06/02/18 06/02/18 17:28 17:28 Creatine Kinase 61 CK-MB (CK-2) 0.83 Troponin I 0.015 Assessment & Plan - Diagnosis (1) H pylori ulcer Is this a current diagnosis for this admission?: Yes Plan: Hold clarithromycin given possibility of interstitial nephritis. Follow-up stool H. pylori antigen (2) Acute on chronic kidney failure Qualifiers: Acute renal failure type: unspecified Chronic kidney disease stage: stage 5, not on chronic dialysis Qualified Code(s): N17.9 - Acute kidney failure, unspecified; N18.5 - Chronic kidney disease, stage 5 Is this a current diagnosis for this admission?: Yes Plan: Avoid nephrotoxic meds and doses. Specifically clarithromycin given possible interstitial nephritis. IV fluid challenge, follow-up urinalysis and nephrology consult (3) Nausea & vomiting Qualifiers: Vomiting type: unspecified Vomiting Intractability: non-intractable Qualified Code(s): R11.2 - Nausea with vomiting, unspecified Is this a current diagnosis for this admission?: Yes Plan: Unclear cause, complicated by psychiatric history. Symptomatic management evaluate for active H. pylori with stool antigen (4) Constipation Qualifiers: Constipation type: unspecified constipation type Qualified Code(s): K59.00 - Constipation, unspecified Is this a current diagnosis for this admission?: Yes Plan: Patient complains of chronic constipation on narcotics. Abdomen is soft, bowel regiment - Time Time Spent: 50 to 70 Minutes - Inpatient Certification Medical Necessity: Need Close Monitoring Due to Risk of Patient Decompensation
[2018-06-03] MEDS: HEPARIN SOD (PORCINE) 5,000 UNIT/ML 1 ML SYRINGE SUBCUT SCH ×3 (05:57→21:02)
[2018-06-03 06:21] LABS: ABSOLUTE BASOPHILS # (AUTO) 0.1 10^3/uL (0.0-0.2); ABSOLUTE EOSINOPHILS # (AUTO) 0.1 10^3/uL (0.0-0.6); ABSOLUTE LYMPHOCYTES (AUTO) 2.3 10^3/uL (0.5-4.7); ABSOLUTE MONOCYTES (AUTO) 0.3 10^3/uL (0.1-1.4); ABSOLUTE NEUT (AUTO) 1.4 10^3/uL (1.7-8.2); BASOPHILS % (AUTO) 1.5 % (0-2); HEMATOCRIT 33.3 % (36.0-47.0); HEMOGLOBIN 11.2 g/dL (12.0-15.5); LYMPHOCYTES % (AUTO) 55.6 % (13-45); MEAN CORPUSCULAR HEMOGLOBIN 31.4 pg (27.0-33.4); MEAN CORPUSCULAR HGB CONC 33.8 g/dL (32.0-36.0); MEAN CORPUSCULAR VOLUME 93 fl (80-97); MONOCYTES % (AUTO) 7.8 % (3-13); PLATELET COUNT 107 10^3/uL (150-450); RED BLOOD COUNT 3.58 10^6/uL (3.72-5.28); RED CELL DISTRIBUTION WIDTH 14.1 % (11.5-14.0); SEGMENTED NEUTROPHILS % (AUTO) 33.1 % (42-78); TOTAL CELLS COUNTED % (AUTO) 100 %; WHITE BLOOD COUNT 4.1 10^3/uL (4.0-10.5)
[2018-06-03 06:40] LABS: ANION GAP 7 (5-19); BLOOD UREA NITROGEN 31 mg/dL (7-20); CALCIUM 8.3 mg/dL (8.4-10.2); CARBON DIOXIDE 26 mmol/L (22-30); CHLORIDE 112 mmol/L (98-107); CREATINE KINASE 58 U/L (30-135); GLUCOSE 87 mg/dL (75-110); POTASSIUM 3.9 mmol/L (3.6-5.0); SODIUM 144.7 mmol/L (137-145)
[2018-06-03 06:49] LABS: CREATINE KINASE MB 1.24 ng/mL (<4.55); TROPONIN I 0.016 ng/mL
[2018-06-03] MEDS: INSULIN LISPRO 100 UNIT/ML 3 ML VIAL SUBCUT SCH ×4 (08:39→23:02)
[2018-06-03] MEDS: ARIPIPRAZOLE 5 MG TABLET PO SCH (09:59)
[2018-06-03] MEDS: CALCITRIOL 0.25 MCG CAPSULE PO SCH (09:59)
[2018-06-03] MEDS: DOCUSATE SODIUM 100 MG CAPSULE PO SCH ×2 (10:00→18:14)
[2018-06-03] MEDS: GABAPENTIN 100 MG CAPSULE PO SCH (10:00)
[2018-06-03] MEDS: BISMUTH SUBSALICYLATE 262 MG TAB.CHEW PO SCH ×2 (10:00→18:14)
[2018-06-03] MEDS: FUROSEMIDE 40 MG TABLET PO SCH (10:00)
[2018-06-03] MEDS: ESCITALOPRAM OXALATE 10 MG TABLET PO SCH (10:00)
[2018-06-03] MEDS: DIVALPROEX SODIUM 500 MG TAB.SR.24H PO SCH ×2 (10:00→18:14)
[2018-06-03] MEDS: CLONIDINE HCL 0.1 MG TABLET PO SCH ×3 (10:00→18:14)
[2018-06-03] MEDS ORDERED: BUTALB/ACETAMINOPHEN/CAFFEINE 1 TAB EACH PO ONE (11:00)
--- NOTE | 2018-06-03 11:40 | PDOC PROGRESS REPORT ---
Subjective Progress Note for:: 06/03/18 Subjective:: This is a 52 year old female with a past medical history of hypertension, migraine, diabetes, chronic pain, depression, PTSD, dyslipidemia, H. 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 She has been having on and off nausea and vomiting for the past few months. She was recently started on treatment for H. pylori with clarithromycin, bismuth and a PPI for H. pylori 2 weeks ago without significant improvement in symptoms. She was found to have acute on top of chronic renal failure in the ER. 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 On encounter, she complains of nausea. She is not in distress. Denies chest pain, abdominal pain or SOB. She is asking for IV phenergan as she has PO ordered. Explained will switch to IV if she has recurrence of N/V or retching. She does complain of migraine headache this morning. Reason For Visit: ARF NAUSEA VOMITING PTSD Physical Exam Vital Signs: Temp Pulse Resp BP Pulse Ox 97.6 F 77 16 176/96 H 94 06/03/18 08:14 06/03/18 08:14 06/03/18 08:14 06/03/18 08:14 06/03/18 08:14 Intake & Output 06/02/18 06/03/18 06/04/18 06:59 06:59 06:59 Intake Total 1000 1000 Output Total 400 Balance 600 1000 Weight 97 lb 3.582 oz General appearance: PRESENT: no acute distress, well-developed, well-nourished Head exam: PRESENT: atraumatic, normocephalic Eye exam: PRESENT: conjunctiva pink, EOMI, PERRLA. ABSENT: scleral icterus Ear exam: PRESENT: normal external ear exam Mouth exam: PRESENT: moist, tongue midline Neck exam: ABSENT: carotid bruit, JVD, lymphadenopathy, thyromegaly Respiratory exam: PRESENT: clear to auscultation salazar. ABSENT: rales, rhonchi, wheezes Cardiovascular exam: PRESENT: bradycardia Pulses: PRESENT: normal dorsalis pedis pul Vascular exam: PRESENT: normal capillary refill GI/Abdominal exam: PRESENT: normal bowel sounds, soft. ABSENT: distended, guarding, mass, organolmegaly, rebound, tenderness Rectal exam: PRESENT: deferred Neurological exam: PRESENT: alert, awake, oriented to person, oriented to place, oriented to time, oriented to situation, CN II-XII grossly intact. ABSENT: motor sensory deficit Results Laboratory Results: 06/03/18 06:00 06/03/18 06:00 06/02/18 06/02/18 06/03/18 17:28 17:28 06:00 WBC 4.9 RBC 3.92 Hgb 12.3 Hct 36.3 MCV 93 MCH 31.4 MCHC 33.9 RDW 13.8 Plt Count 131 L Seg Neutrophils % 43.4 Lymphocytes % 45.5 H Monocytes % 9.1 Eosinophils % 1.2 Basophils % 0.8 Absolute Neutrophils 2.1 Absolute Lymphocytes 2.2 Absolute Monocytes 0.4 Absolute Eosinophils 0.1 Absolute Basophils 0.0 Sodium 140.7 144.7 Potassium 4.0 3.9 Chloride 105 112 H Carbon Dioxide 25 26 Anion Gap 11 7 BUN 36 H 31 H Creatinine 6.07 H 5.23 H Est GFR ( Amer) 9 L 10 L Est GFR (Non-Af Amer) 7 L 9 L Glucose 95 87 Calcium 9.0 8.3 L Total Bilirubin 0.6 AST 14 ALT 16 Alkaline Phosphatase 61 Total Protein 7.1 Albumin 3.8 06/03/18 06:00 WBC 4.1 RBC 3.58 L Hgb 11.2 L Hct 33.3 L MCV 93 MCH 31.4 MCHC 33.8 RDW 14.1 H Plt Count 107 L Seg Neutrophils % 33.1 L Lymphocytes % 55.6 H Monocytes % 7.8 Eosinophils % 2.0 Basophils % 1.5 Absolute Neutrophils 1.4 L Absolute Lymphocytes 2.3 Absolute Monocytes 0.3 Absolute Eosinophils 0.1 Absolute Basophils 0.1 Sodium Potassium Chloride Carbon Dioxide Anion Gap BUN Creatinine Est GFR ( Amer) Est GFR (Non-Af Amer) Glucose Calcium Total Bilirubin AST ALT Alkaline Phosphatase Total Protein Albumin 06/02/18 06/02/18 06/03/18 17:28 17:28 06:00 Creatine Kinase 61 58 CK-MB (CK-2) 0.83 Troponin I 0.015 06/03/18 06:00 Creatine Kinase CK-MB (CK-2) 1.24 Troponin I 0.016 Assessment & Plan - Diagnosis (1) Nausea & vomiting Qualifiers: Vomiting type: unspecified Vomiting Intractability: non-intractable Qualified Code(s): R11.2 - Nausea with vomiting, unspecified Is this a current diagnosis for this admission?: Yes Plan: Likely multifactorial from H. pylori duodenitis, renal failure and migraine headache. No witnessed recurrence of vomiting yet. Continue PO phenergan for now. (2) Acute on chronic kidney failure Qualifiers: Acute renal failure type: unspecified Chronic kidney disease stage: stage 5, not on chronic dialysis Qualified Code(s): N17.9 - Acute kidney failure, unspecified; N18.5 - Chronic kidney disease, stage 5 Is this a current diagnosis for this admission?: Yes Plan: Will await further recommendation from nephrology. (3) Migraine headache Qualifiers: Migraine type: unspecified Status migrainosus presence: without status migrainosus Intractability: not intractable Qualified Code(s): G43.909 - Migraine, unspecified, not intractable, without status migrainosus Is this a current diagnosis for this admission?: Yes Plan: She says she did not get relief with Tylenol. Will give Fioricet. - Time Time Spent with patient: 25-34 minutes
[2018-06-03] MEDS: PANTOPRAZOLE SODIUM 40 MG VIAL IV SCH (11:50)
[2018-06-03] MEDS: PROMETHAZINE HCL INJ 25 MG/1 ML VIAL IV PRN ×2 (13:45→21:05)
--- NOTE | 2018-06-03 14:43 | PDOC CONSULTATION ---
Consultation Consult Date: 06/03/18 Attending physician:: ZACK LEES Consult reason:: I was asked to see the patient due to acute worsening of kidney function and top of chronic kidney disease. 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 Castorena, hypertension, anemia, diabetes, chronic pain, depression, PTSD and recent diagnosis of H. pylori infection who was admitted yesterday because of persistent nausea and vomiting. Patient was recently hospitalized from May 11 - May 18 when she was diagnosed with H. pylori infection. She is being treated for that by Dr. Pickard, blocking machine tender. Patient presented herself in the emergency room because of worsening and persistent nausea and vomiting and unable to keep anything down her stomach. She admits very minimal abdominal pain and constipation. She denies any diarrhea. She admits to feeling tired, weak and have no energy to do anything at home. She has some back pain on pain medications. Her oral intake of for both and solid and liquids have been decreased for the last couple weeks. He said that she makes urine about 2-3 times a day. She denies any chest pains no shortness of breath. When she came in she had a BUN of 36, creatinine of 6.07 with estimated GFR of 9. Today she had a BUN of 31, creatinine of 5.23 with estimated GFR of 10. Review of records from last month show that her baseline BUN is anywhere between 36-47, creatinine ranged from 4.3-5.3 with estimated GFR of around 10-12. Last admission she had a 24-hour urine collection on May 12, 2018 which showed a volume of 2140 mL, creatinine clearance of 22 beats and serum creatinine of 4.21. She actually has seen Dr. Castorena on May 23 and there was a discussion regarding treatment options for kidney disease. Dr. Castorena indicated in his notes that the patient prefers to do peritoneal dialysis. Patient is also on the kidney transplant list at [facility]. 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 GI Medical History: Reports: Gastroesophageal Reflux Disease, Other - Diverticulosis and IBS Musculoskeltal Medical History: Reports: Arthritis - right knee, Fibromyalgia Psychiatric Medical History: Reports: Depression, General Anxiety Disorder, Post Traumatic Stress Disorder Past Surgical History Past Surgical History: Reports: Appendectomy, Cardiac Catheterization - 3, last one 3 years ago showing no blockages, Cholecystectomy, Hysterectomy, Orthopedic Surgery - RIGHT ANKLE SURGERY 01/2011, shoulder surgery 12/2106, Vascular Surgery - port a cath R upper chest Social History Information Source: Patient Lives with: Family - and daughter Smoking Status: Never Smoker Frequency of Alcohol Use: None Hx Recreational Drug Use: No Drugs: None Hx Prescription Drug Abuse: No - Advance Directive Resuscitation Status: Full Code Family History Family History: CAD - Mother, Chronic Kidney Disease - Cousin, DM - Mother and father, Hypertension - Mother and father Parental Family History Reviewed: Yes Children Family History Reviewed: Yes Sibling(s) Family History Reviewed.: Yes Medication/Allergy Home Medications: Amoxicillin Trihydrate [Amoxil 500 mg Capsule] 1,000 mg PO Q12 06/02/18 Aripiprazole [Abilify 15 mg Tablet] 15 mg PO DAILY 06/02/18 Bismuth Subsalicylate [Pepto-Bismol] 262 mg PO BID 06/02/18 Calcitriol 1 mcg PO DAILY 06/02/18 Clarithromycin [Biaxin 500 mg Tablet] 500 mg PO Q12 06/02/18 Clonidine HCl [Catapres 0.3 mg Tablet] 0.3 mg PO TID 06/02/18 Divalproex Sodium [Depakote ER 500 mg Tab.sr] 500 mg PO BID 06/02/18 Escitalopram Oxalate [Lexapro] 40 mg PO DAILY 06/02/18 Eszopiclone [Lunesta] 3 mg PO QHS 06/02/18 Furosemide [Lasix 40 mg Tablet] 40 mg PO DAILY 06/02/18 Gabapentin [Neurontin 100 mg Capsule] 100 mg PO DAILY 06/02/18 Hydromorphone HCl [Dilaudid] 4 mg PO QID 06/02/18 Lisinopril [Zestril] 10 mg PO BID 06/02/18 Metoclopramide HCl [Reglan 10 mg Tablet] 10 mg PO ACHS 06/02/18 Omeprazole 40 mg PO ACBRKFST 06/02/18 Pantoprazole Sodium [Protonix] 40 mg PO BID 06/02/18 Polyethylene Glycol 3350 [Miralax Powder 17 gm/Packet] 17 mg PO DAILY 06/02/18 Promethazine HCl [Phenergan 25 mg Tablet] 50 mg PO QIDP PRN 06/02/18 Allergies/Adverse Reactions: codeine [Codeine] Allergy (Mild, Verified 06/02/18 16:14) Itching ketorolac tromethamine [From Toradol] Allergy (Unknown, Verified 06/02/18 16:14) Anxiety nalbuphine HCl [From Nubain] Allergy (Unknown, Verified 06/02/18 16:14) Anxiety ondansetron HCl [From Zofran] Allergy (Unknown, Verified 06/02/18 16:14) Itching droperidol [Droperidol] Allergy (Verified 06/02/18 16:14) reports heart racing, doesn't like how it makes her feel Review of Systems All systems: reviewed and no additional remarkable complaints except as stated Review of Systems: Constitutional: ABSENT: chills, fever(s), headache(s), weight gain, weight loss; admits fatigue Eyes: ABSENT: visual disturbances Ears: ABSENT: hearing changes Cardiovascular: ABSENT: chest pain, dyspnea on exertion, edema, orthropnea, palpitations Respiratory: ABSENT: cough, dyspnea, hemoptysis Gastrointestinal: ABSENT: Diarrhea, hematemesis, hematochezia; admits nausea, vomiting, mild abdominal pain and constipation Genitourinary: ABSENT: dysuria, hematuria Musculoskeletal: ABSENT: joint swelling Integumentary: ABSENT: rash, wounds Neurological: ABSENT: abnormal gait, abnormal speech, confusion, dizziness, focal weakness, numbness, syncope Psychiatric: ABSENT: anxiety, depression Endocrine: ABSENT: cold intolerance, heat intolerance, polydipsia, polyuria Hematologic/Lymphatic: ABSENT: easy bleeding, easy bruising, lymphadenopathy Physical Exam Vital Signs: Temp Pulse Resp BP Pulse Ox 97.6 F 71 14 176/96 H 94 06/03/18 08:14 06/03/18 13:31 06/03/18 13:31 06/03/18 08:14 06/03/18 08:14 Intake & Output 06/02/18 06/03/18 06/04/18 06:59 06:59 06:59 Intake Total 1000 1000 Output Total 400 Balance 600 1000 Weight 44.1 kg Exam: General appearance: No acute distress, cooperative, well-developed, well- nourished, somnolent due to the Phenergan just given to her Head exam: PRESENT: atraumatic, normocephalic Eye exam: PRESENT: Conjunctiva slightly pale, EOMI, PERRLA. ABSENT: conjunctival injection, scleral icterus Mouth exam: PRESENT: moist, neck supple, tongue midline Neck exam: PRESENT: full ROM. ABSENT: carotid bruit, JVD, lymphadenopathy, thyromegaly Respiratory exam: PRESENT: clear to auscultation bilaterally. ABSENT: rales, rhonchi, stridor, wheezes Cardiovascular exam: PRESENT: RRR, +S1, +S2. ABSENT: systolic murmur Pulses: PRESENT: normal radial pulses, normal dorsalis pedis pulses GI/Abdominal exam: PRESENT: normal bowel sounds, soft. ABSENT: guarding, mass, tenderness Rectal exam: Deferred Extremities exam: PRESENT: full ROM. ABSENT: calf tenderness, pedal edema Musculoskeletal: PRESENT: full ROM. ABSENT: deformity Neurological exam: PRESENT: alert, Awake, Oriented to person, Oriented to place, Oriented to time, reflexes normal, CN II-XII grossly intact. ABSENT: motor sensory deficit Psychiatric exam: PRESENT: appropriate affect, normal mood. ABSENT: homicidal ideation, suicidal ideation Skin exam: PRESENT: intact, dry, warm. ABSENT: rash Results Laboratory Results: 06/03/18 06:00 06/03/18 06:00 06/02/18 06/02/18 06/03/18 17:28 17:28 06:00 WBC 4.9 RBC 3.92 Hgb 12.3 Hct 36.3 MCV 93 MCH 31.4 MCHC 33.9 RDW 13.8 Plt Count 131 L Seg Neutrophils % 43.4 Lymphocytes % 45.5 H Monocytes % 9.1 Eosinophils % 1.2 Basophils % 0.8 Absolute Neutrophils 2.1 Absolute Lymphocytes 2.2 Absolute Monocytes 0.4 Absolute Eosinophils 0.1 Absolute Basophils 0.0 Sodium 140.7 144.7 Potassium 4.0 3.9 Chloride 105 112 H Carbon Dioxide 25 26 Anion Gap 11 7 BUN 36 H 31 H Creatinine 6.07 H 5.23 H Est GFR ( Amer) 9 L 10 L Est GFR (Non-Af Amer) 7 L 9 L Glucose 95 87 Calcium 9.0 8.3 L Total Bilirubin 0.6 AST 14 ALT 16 Alkaline Phosphatase 61 Total Protein 7.1 Albumin 3.8 06/03/18 06:00 WBC 4.1 RBC 3.58 L Hgb 11.2 L Hct 33.3 L MCV 93 MCH 31.4 MCHC 33.8 RDW 14.1 H Plt Count 107 L Seg Neutrophils % 33.1 L Lymphocytes % 55.6 H Monocytes % 7.8 Eosinophils % 2.0 Basophils % 1.5 Absolute Neutrophils 1.4 L Absolute Lymphocytes 2.3 Absolute Monocytes 0.3 Absolute Eosinophils 0.1 Absolute Basophils 0.1 Sodium Potassium Chloride Carbon Dioxide Anion Gap BUN Creatinine Est GFR ( Amer) Est GFR (Non-Af Amer) Glucose Calcium Total Bilirubin AST ALT Alkaline Phosphatase Total Protein Albumin 06/02/18 06/02/18 06/03/18 17:28 17:28 06:00 Creatine Kinase 61 58 CK-MB (CK-2) 0.83 Troponin I 0.015 06/03/18 06:00 Creatine Kinase CK-MB (CK-2) 1.24 Troponin I 0.016 Assessment & Plan - Diagnosis (1) Acute on chronic kidney failure Qualifiers: Acute renal failure type: unspecified Chronic kidney disease stage: stage 5, not on chronic dialysis Qualified Code(s): N17.9 - Acute kidney failure, unspecified; N18.5 - Chronic kidney disease, stage 5 Is this a current diagnosis for this admission?: Yes Plan: Acute worsening of kidney function likely secondary to prerenal factors due to GI complaints causing some relative volume depletion. Kidney function improves overnight with IV fluid hydration. Since patient is still nauseated and vomiting will place her on some maintenance IV fluids and continue antiemetics. Monitor kidney function and electrolytes. At this time there is no indication for any urgent or emergent acute renal replacement therapy. (2) H pylori ulcer Is this a current diagnosis for this admission?: Yes Plan: Managed by GI. (3) Nausea & vomiting Qualifiers: Vomiting type: unspecified Vomiting Intractability: non-intractable Qualified Code(s): R11.2 - Nausea with vomiting, unspecified Is this a current diagnosis for this admission?: Yes Plan: Likely secondary to H. pylori ulcer but cannot totally exclude contribution of worsening kidney disease. (4) Dehydration Is this a current diagnosis for this admission?: Yes (5) Chronic kidney disease, stage V Is this a current diagnosis for this admission?: Yes Plan: Secondary to FSGS per biopsy in 2004. Her eGFR for the last couple of months has been 10-12 although her creatinine clearance in May 12 was 22 mL/min. I think the patient is pretty close to requiring renal replacement therapy chronically. Patient needs to be followed closely and is being followed by Dr. Castorena monthly. Patient prefers peritoneal dialysis which could certainly be started very soon as an outpatient. Dr. Castorena will be in hospital service next week and if she still here can be further discussed. (6) Diabetes mellitus type 2 in nonobese Is this a current diagnosis for this admission?: Yes (7) Hypertension Is this a current diagnosis for this admission?: Yes - Notes Notes: Thank you very much for this consultation. Assessment and plan discussed with patient. - Time Time Spent: Greater than 70 Minutes
[2018-06-03] MEDS: 1/2 NORMAL SALINE 1,000 ML IV PRN (15:14)
[2018-06-03] MEDS: ZOLPIDEM TARTRATE 5 MG TABLET PO SCH (21:03)
--- NOTE | 2018-06-03 21:19 | EKG REPORT ---
SEVERITY:- ABNORMAL ECG - SINUS RHYTHM LEFT VENTRICULAR HYPERTROPHY : Confirmed by: Abigail Mandel MD 03-Jun-2018 21:18:31
[2018-06-04] MEDS: PROMETHAZINE HCL INJ 25 MG/1 ML VIAL IV PRN (03:43)
[2018-06-04] MEDS: HEPARIN SOD (PORCINE) 5,000 UNIT/ML 1 ML SYRINGE SUBCUT SCH ×3 (05:19→21:03)
[2018-06-04] MEDS: 1/2 NORMAL SALINE 1,000 ML IV PRN ×2 (05:34→17:57)
[2018-06-04 07:01] LABS: ANION GAP 5 (5-19); BLOOD UREA NITROGEN 26 mg/dL (7-20); CARBON DIOXIDE 27 mmol/L (22-30); CHLORIDE 109 mmol/L (98-107); GLUCOSE 84 mg/dL (75-110); SODIUM 141.1 mmol/L (137-145)
[2018-06-04] MEDS: INSULIN LISPRO 100 UNIT/ML 3 ML VIAL SUBCUT SCH ×4 (07:55→22:17)
[2018-06-04] MEDS ORDERED: PROMETHAZINE HCL INJ 50 MG/1 ML VIAL IM PRN (09:41)
[2018-06-04] MEDS: DIVALPROEX SODIUM 500 MG TAB.SR.24H PO SCH ×2 (09:52→17:14)
[2018-06-04] MEDS: GABAPENTIN 100 MG CAPSULE PO SCH (09:52)
[2018-06-04] MEDS: CLONIDINE HCL 0.1 MG TABLET PO SCH ×3 (09:52→21:13)
[2018-06-04] MEDS: ESCITALOPRAM OXALATE 10 MG TABLET PO SCH (09:53)
[2018-06-04] MEDS: PROMETHAZINE HCL 25 MG TABLET PO PRN ×2 (09:53→15:50)
[2018-06-04] MEDS: DOCUSATE SODIUM 100 MG CAPSULE PO SCH ×2 (09:53→17:14)
[2018-06-04] MEDS: FUROSEMIDE 40 MG TABLET PO SCH (09:53)
[2018-06-04] MEDS: ARIPIPRAZOLE 5 MG TABLET PO SCH (09:55)
[2018-06-04] MEDS: PANTOPRAZOLE SODIUM 40 MG VIAL IV SCH (09:55)
[2018-06-04] MEDS: CALCITRIOL 0.25 MCG CAPSULE PO SCH (09:56)
[2018-06-04] MEDS: BISMUTH SUBSALICYLATE 262 MG TAB.CHEW PO SCH ×2 (09:56→17:14)
[2018-06-04 10:30] LABS: APPEARANCE,URINE CLEAR; BILIRUBIN,URINE NEGATIVE (NEGATIVE); COLOR,URINE STRAW; GLUCOSE, URINE 50 mg/dL (NEGATIVE); KETONES,URINE NEGATIVE (NEGATIVE); LEUKOCYTE ESTERASE,URINE NEGATIVE (NEGATIVE); NITRITE,URINE NEGATIVE (NEGATIVE); PROTEIN,URINE 100 mg/dL (NEGATIVE); URINE SPECIFIC GRAVITY 1.009; UROBILINOGEN,URINE NEGATIVE mg/dL (<2.0)
--- NOTE | 2018-06-04 13:32 | PDOC PROGRESS REPORT ---
Subjective Progress Note for:: 06/04/18 Subjective:: This is a 52 year old female with a past medical history of hypertension, migraine, diabetes, chronic pain, depression, PTSD, dyslipidemia, H. 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 She has been having on and off nausea and vomiting for the past few months. She was recently started on treatment for H. pylori with clarithromycin, bismuth and a PPI for H. pylori 2 weeks ago without significant improvement in symptoms. She was found to have acute on top of chronic renal failure in the ER. 06/03: Patient reportedly had one episode of vomiting this nurse executive, not witnessed by staff. On encounter, she complains of nausea. She is not in distress. Denies chest pain, abdominal pain or SOB. She is asking for IV phenergan as she has PO ordered. Explained will switch to IV if she has recurrence of N/V or retching. She does complain of migraine headache this morning. 06/04: Patient reported of one episode of vomiting early this morning to RN. Per RN, patient was not seen by RN retching but she saw small pieces of omelet on vomit bag. Patient says she continues to have on and off nausea. Denies any other acute symptoms. She does not appear to be in distress. Reason For Visit: ARF NAUSEA VOMITING PTSD Physical Exam Vital Signs: Temp Pulse Resp BP Pulse Ox 97.7 F 58 L 13 151/89 H 100 06/04/18 11:11 06/04/18 11:11 06/04/18 11:11 06/04/18 11:11 06/04/18 07:26 Intake & Output 06/03/18 06/04/18 06/05/18 06:59 06:59 06:59 Intake Total 1000 2800 458 Output Total 400 2900 700 Balance 600 -100 -242 Weight 97 lb 3.582 oz 101 lb 6.602 oz General appearance: PRESENT: no acute distress, well-developed, well-nourished Head exam: PRESENT: atraumatic, normocephalic Eye exam: PRESENT: conjunctiva pink, EOMI, PERRLA. ABSENT: scleral icterus Ear exam: PRESENT: normal external ear exam Mouth exam: PRESENT: moist, tongue midline Neck exam: ABSENT: carotid bruit, JVD, lymphadenopathy, thyromegaly Respiratory exam: PRESENT: clear to auscultation salazar. ABSENT: rales, rhonchi, wheezes Cardiovascular exam: PRESENT: RRR. ABSENT: diastolic murmur, rubs, systolic murmur Pulses: PRESENT: normal dorsalis pedis pul GI/Abdominal exam: PRESENT: normal bowel sounds, soft. ABSENT: distended, guarding, mass, organolmegaly, rebound, tenderness Rectal exam: PRESENT: deferred Neurological exam: PRESENT: alert, awake, oriented to person, oriented to place, oriented to time, oriented to situation, CN II-XII grossly intact. ABSENT: motor sensory deficit Results Laboratory Results: 06/03/18 06:00 06/04/18 06:18 06/04/18 06/04/18 06:18 10:10 Sodium 141.1 Potassium 4.0 Chloride 109 H Carbon Dioxide 27 Anion Gap 5 BUN 26 H Creatinine 5.02 H Est GFR ( Amer) 11 L Est GFR (Non-Af Amer) 9 L Glucose 84 Calcium 8.0 L Urine Color STRAW Urine Appearance CLEAR Urine pH 6.0 Ur Specific [place] 1.009 Urine Protein 100 H Urine Glucose (UA) 50 H Urine Ketones NEGATIVE Urine Blood NEGATIVE Urine Nitrite NEGATIVE Ur Leukocyte Esterase NEGATIVE Urine WBC (Auto) 2 Urine RBC (Auto) 0 06/02/18 06/02/18 06/03/18 17:28 17:28 06:00 Creatine Kinase 61 58 CK-MB (CK-2) 0.83 Troponin I 0.015 06/03/18 06:00 Creatine Kinase CK-MB (CK-2) 1.24 Troponin I 0.016 Assessment & Plan - Diagnosis (1) Nausea & vomiting Qualifiers: Vomiting type: unspecified Vomiting Intractability: non-intractable Qualified Code(s): R11.2 - Nausea with vomiting, unspecified Is this a current diagnosis for this admission?: Yes Plan: Likely multifactorial from H. pylori duodenitis, renal failure and migraine headache. No witnessed recurrence of vomiting yet. Continue PO phenergan for now. 06/03: IV phenergan prn added. 06/04: She was recommended possible need for gastric emptying study but reportedly was told by GI clinic to proceed to ER on this recent hospitalization when she had recurrence/worsening of her nausea/vomiting. Nursing staff will be monitoring patient for recurrence of any retching or vomiting. Switched IV phenergan to IM. (2) Acute on chronic kidney failure Qualifiers: Acute renal failure type: unspecified Chronic kidney disease stage: stage 5, not on chronic dialysis Qualified Code(s): N17.9 - Acute kidney failure, unspecified; N18.5 - Chronic kidney disease, stage 5 Is this a current diagnosis for this admission?: Yes Plan: Creatinine improving and close to baseline. May be initiated on peritoneal dialysis later per nephrology and patient's choice. (3) Migraine headache Qualifiers: Migraine type: unspecified Status migrainosus presence: without status migrainosus Intractability: not intractable Qualified Code(s): G43.909 - Migraine, unspecified, not intractable, without status migrainosus Is this a current diagnosis for this admission?: Yes Plan: She says she did not get relief with Tylenol. Fioricet prn. - Time Time Spent with patient: 25-34 minutes
[2018-06-04] MEDS: POLYETHYLENE GLYCOL 3350 POWDER 17 GM/1 PACKET PO SCH (17:57)
[2018-06-04] MEDS ORDERED: PROMETHAZINE HCL INJ 25 MG/1 ML VIAL ONE (21:11)
[2018-06-04] MEDS: ZOLPIDEM TARTRATE 5 MG TABLET PO SCH (21:13)
[2018-06-04] MEDS: PROMETHAZINE HCL INJ 25 MG/1 ML VIAL IM PRN (21:19)
[2018-06-05] MEDS: HEPARIN SOD (PORCINE) 5,000 UNIT/ML 1 ML SYRINGE SUBCUT SCH ×2 (05:10→15:20)
[2018-06-05] MEDS: CLONIDINE HCL 0.1 MG TABLET PO SCH ×3 (05:14→21:20)
[2018-06-05] MEDS: PROMETHAZINE HCL 25 MG TABLET PO PRN ×2 (05:15→15:21)
[2018-06-05 05:41] LABS: BLOOD UREA NITROGEN 25 mg/dL (7-20); CALCIUM 8.9 mg/dL (8.4-10.2); GLUCOSE 86 mg/dL (75-110); POTASSIUM 4.2 mmol/L (3.6-5.0)
[2018-06-05 05:46] LABS: ANION GAP 5 (5-19); CARBON DIOXIDE 27 mmol/L (22-30); CHLORIDE 109 mmol/L (98-107); SODIUM 141.4 mmol/L (137-145)
[2018-06-05] MEDS: 1/2 NORMAL SALINE 1,000 ML IV PRN ×3 (06:46→21:24)
[2018-06-05 07:17] LABS: ABSOLUTE EOSINOPHILS # (AUTO) 0.1 10^3/uL (0.0-0.6); ABSOLUTE LYMPHOCYTES (AUTO) 2.1 10^3/uL (0.5-4.7); ABSOLUTE MONOCYTES (AUTO) 0.3 10^3/uL (0.1-1.4); ABSOLUTE NEUT (AUTO) 1.6 10^3/uL (1.7-8.2); BASOPHILS % (AUTO) 0.4 % (0-2); EOSINOPHILS % (AUTO) 2.1 % (0-6); HEMATOCRIT 30.4 % (36.0-47.0); HEMOGLOBIN 10.5 g/dL (12.0-15.5); LYMPHOCYTES % (AUTO) 50.3 % (13-45); MEAN CORPUSCULAR HEMOGLOBIN 31.7 pg (27.0-33.4); MEAN CORPUSCULAR HGB CONC 34.5 g/dL (32.0-36.0); MEAN CORPUSCULAR VOLUME 92 fl (80-97); MONOCYTES % (AUTO) 7.6 % (3-13); RED BLOOD COUNT 3.31 10^6/uL (3.72-5.28); RED CELL DISTRIBUTION WIDTH 13.9 % (11.5-14.0); SEGMENTED NEUTROPHILS % (AUTO) 39.6 % (42-78); TOTAL CELLS COUNTED % (AUTO) 100 %; WHITE BLOOD COUNT 4.1 10^3/uL (4.0-10.5)
[2018-06-05 08:00] LABS: PLATELET COUNT 97 10^3/uL (150-450)
[2018-06-05] MEDS: INSULIN LISPRO 100 UNIT/ML 3 ML VIAL SUBCUT SCH ×4 (08:10→23:42)
[2018-06-05] MEDS: FUROSEMIDE 40 MG TABLET PO SCH (10:04)
[2018-06-05] MEDS: ESCITALOPRAM OXALATE 10 MG TABLET PO SCH (10:04)
[2018-06-05] MEDS: GABAPENTIN 100 MG CAPSULE PO SCH (10:04)
[2018-06-05] MEDS: DIVALPROEX SODIUM 500 MG TAB.SR.24H PO SCH ×2 (10:04→17:55)
[2018-06-05] MEDS: LISINOPRIL 10 MG TABLET PO SCH ×2 (10:04→21:20)
[2018-06-05] MEDS: CALCITRIOL 0.25 MCG CAPSULE PO SCH (10:04)
[2018-06-05] MEDS: ARIPIPRAZOLE 5 MG TABLET PO SCH (10:05)
[2018-06-05] MEDS: BISMUTH SUBSALICYLATE 262 MG TAB.CHEW PO SCH ×2 (10:05→17:55)
[2018-06-05] MEDS: AMOXICILLIN TRIHYDRATE 500 MG CAPSULE PO SCH ×2 (10:05→21:18)
[2018-06-05] MEDS: DOCUSATE SODIUM 100 MG CAPSULE PO SCH ×2 (10:05→17:55)
[2018-06-05] MEDS: CLARITHROMYCIN 500 MG TABLET PO SCH ×2 (10:06→21:19)
[2018-06-05] MEDS: PANTOPRAZOLE SODIUM 40 MG VIAL IV SCH (10:06)
[2018-06-05] MEDS: POLYETHYLENE GLYCOL 3350 POWDER 17 GM/1 PACKET PO SCH ×2 (10:06→17:55)
--- NOTE | 2018-06-05 11:11 | RADIOLOGY REPORT (SQ) ---
EXAM DESCRIPTION: CT ABD/PELVIS NO ORAL OR IV COMPLETED DATE/TIME: 06/05/2018 10:29 am REASON FOR STUDY: LLQ pain COMPARISON: CT abdomen pelvis 10/26/2015 AP chest 05/11/2018 TECHNIQUE: CT scan of the abdomen and pelvis performed without intravenous or oral contrast. Images reviewed with lung, soft tissue, and bone windows. Reconstructed coronal and sagittal MPR images revi ewed. All images stored on PACS. All CT scanners at this facility use dose modulation, iterative reconstruction, and/or weight based d osing when appropriate to reduce radiation dose to as low as reasonably achievable (ALARA). [facility]: Dose Right [facility]: CareDose [facility]: Dose Right [facility]: Teradose 4D [facility]: [employer] RADIATION DOSE: CT Rad equipment meets quality standard of care and radiation dose reduction techniq ues were employed. CTDIvol: 17.4 mGy. DLP: 1094 mGy-cm.mGy. LIMITATIONS: None. FINDINGS: LOWER CHEST: Technologist included the chest in the field of view. Mild chronic increased interstitial markings at the posterior lung bases. Lungs are otherwise clear. No pleural effusion or pneumothorax. No hilar or mediastinal masses or adenopathy. Air in the esophagus from GE reflux. Right permanent central line tip superior vena cava. NON-CONTRASTED LIVER, SPLEEN, ADRENALS: Evaluation limited by lack of IV contrast. No identified sign ificant masses. PANCREAS: No masses. No peripancreatic inflammatory changes. GALLBLADDER: Surgically absent RIGHT KIDNEY AND URETER: No suspicious masses. Assessment limited by lack of IV contrast. No signif icant calcifications. No hydronephrosis or hydroureter. LEFT KIDNEY AND URETER: No suspicious masses. Assessment limited by lack of IV contrast. No signifi cant calcifications. No hydronephrosis or hydroureter. AORTA AND RETROPERITONEUM: No aneurysm. No retroperitoneal masses or adenopathy. BOWEL AND PERITONEAL CAVITY: Massive amount of stool in the ascending and transverse colon. Just dis melodie to the splenic flexure, there is a transition point in the colon between dilated stool-filled col on and decompressed descending colon. This is worrisome for stricture. Neoplasm could not be exclud ed. Stomach, small bowel nondistended. Sigmoid colon decompressed. No free intraperitoneal air or fluid. APPENDIX: Normal. PELVIS, BLADDER, AND ABDOMINAL WALL:No abnormal masses. Trace cul-de-sac free fluid. Bladder normal. Post hysterectomy BONES: No significant findings. OTHER: No other significant finding. IMPRESSION: Massive amount of stool in the ascending and transverse colon, and splenic flexure. Jus t past the splenic flexure, there is a tight narrowing, with the remainder of the colon decompressed. Differential is stricture versus neoplasm causing partial colon obstruction. Post hysterectomy. Post cholecystectomy. COMMENT: Quality ID # [id number]: Final reports with documentation of one or more dose reduction techniques (e.g., Automated exposure control, adjustment of the mA and/or kV according to patient size, use of iterative reconstruction technique) TECHNICAL DOCUMENTATION: JOB ID: [id number] [employer]- All Rights Reserved Reading location - IP/workstation name: [email or web address]
--- NOTE | 2018-06-05 16:18 | PDOC PROGRESS REPORT ---
Subjective Progress Note for:: 06/05/18 Subjective:: This is a 52 year old female with a past medical history of hypertension, migraine, diabetes, chronic pain, depression, PTSD, dyslipidemia, H. 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 She has been having on and off nausea and vomiting for the past few months. She was recently started on treatment for H. pylori with clarithromycin, bismuth and a PPI for H. pylori 2 weeks ago without significant improvement in symptoms. She was found to have acute on top of chronic renal failure in the ER. 06/03: Patient reportedly had one episode of vomiting this pit clerk, not witnessed by staff. On encounter, she complains of nausea. She is not in distress. Denies chest pain, abdominal pain or SOB. She is asking for IV phenergan as she has PO ordered. Explained will switch to IV if she has recurrence of N/V or retching. She does complain of migraine headache this morning. 06/04: Patient reported of one episode of vomiting early this morning to RN. Per RN, patient was not seen by RN retching but she saw small pieces of omelet on vomit bag. Patient says she continues to have on and off nausea. Denies any other acute symptoms. She does not appear to be in distress. 06/05: No vomiting overnight but she did complain of nausea. She reports having LLQ pain this morning. She says her last BM was 4 days ago. Will order CT of the abdomen/pelvis. Reason For Visit: ARF NAUSEA VOMITING PTSD Physical Exam Vital Signs: Temp Pulse Resp BP Pulse Ox 97.4 F 53 L 16 170/95 H 100 06/05/18 11:34 06/05/18 11:34 06/05/18 11:34 06/05/18 11:34 06/05/18 11:34 Intake & Output 06/04/18 06/05/18 06/06/18 06:59 06:59 06:59 Intake Total 2800 2720 222 Output Total 2900 3700 1000 Balance -100 -980 -778 Weight 101 lb 6.602 oz 102 lb 15.294 oz General appearance: PRESENT: no acute distress, well-developed, well-nourished Head exam: PRESENT: atraumatic, normocephalic Eye exam: PRESENT: conjunctiva pink, EOMI, PERRLA. ABSENT: scleral icterus Ear exam: PRESENT: normal external ear exam Mouth exam: PRESENT: moist, tongue midline Neck exam: ABSENT: carotid bruit, JVD, lymphadenopathy, thyromegaly Respiratory exam: PRESENT: clear to auscultation salazar. ABSENT: rales, rhonchi, wheezes Cardiovascular exam: PRESENT: RRR. ABSENT: diastolic murmur, rubs, systolic murmur Pulses: PRESENT: normal dorsalis pedis pul GI/Abdominal exam: PRESENT: normal bowel sounds, soft, tenderness - minimal direct LLQ tenderness. ABSENT: distended, guarding, mass, organolmegaly, rebound Rectal exam: PRESENT: deferred Neurological exam: PRESENT: alert, awake, oriented to person, oriented to place, oriented to time, oriented to situation, CN II-XII grossly intact. ABSENT: motor sensory deficit Results Laboratory Results: 06/05/18 05:10 06/05/18 05:10 06/05/18 06/05/18 05:10 05:10 WBC 4.1 RBC 3.31 L Hgb 10.5 L Hct 30.4 L MCV 92 MCH 31.7 MCHC 34.5 RDW 13.9 Plt Count 97 L Seg Neutrophils % 39.6 L Lymphocytes % 50.3 H Monocytes % 7.6 Eosinophils % 2.1 Basophils % 0.4 Absolute Neutrophils 1.6 L Absolute Lymphocytes 2.1 Absolute Monocytes 0.3 Absolute Eosinophils 0.1 Absolute Basophils 0.0 Sodium 141.4 Potassium 4.2 Chloride 109 H Carbon Dioxide 27 Anion Gap 5 BUN 25 H Creatinine 4.98 H Est GFR ( Amer) 11 L Est GFR (Non-Af Amer) 9 L Glucose 86 Calcium 8.9 06/02/18 06/02/18 06/03/18 17:28 17:28 06:00 Creatine Kinase 61 58 CK-MB (CK-2) 0.83 Troponin I 0.015 06/03/18 06:00 Creatine Kinase CK-MB (CK-2) 1.24 Troponin I 0.016 Impressions: Abdomen/Pelvis CT 06/05/18 00:00 IMPRESSION: Massive amount of stool in the ascending and transverse colon, and splenic flexure. Just past the splenic flexure, there is a tight narrowing, with the remainder of the colon decompressed. Differential is stricture versus neoplasm causing partial colon obstruction. Post hysterectomy. Post cholecystectomy. Assessment & Plan - Diagnosis (1) Small bowel obstruction Is this a current diagnosis for this admission?: Yes Plan: Partial SBO. 217: CT of the abdomen/pelvis shows severe colonic stricture on the splenic flexure causing partial SBO. She leon shave history of endometriosis, hysterectomy and cholecystectomy. Possible adhesions vs mass. Consulted surgery. She will be scheduled for a colonoscopy possibly tomorrow. (2) Nausea & vomiting Qualifiers: Vomiting type: unspecified Vomiting Intractability: non-intractable Qualified Code(s): R11.2 - Nausea with vomiting, unspecified Is this a current diagnosis for this admission?: Yes Plan: Likely multifactorial from H. pylori duodenitis, renal failure and now partial SBO. No witnessed recurrence of vomiting yet. Continue PO phenergan for now. 06/03: IV phenergan prn added. 06/04: She was recommended possible need for gastric emptying study but reportedly was told by GI clinic to proceed to ER on this recent hospitalization when she had recurrence/worsening of her nausea/vomiting. Nursing staff will be monitoring patient for recurrence of any retching or vomiting. Switched IV phenergan to IM. 06/05: She complains of LLQ pain this morning. CT of the abdomen/pelvis shows severe colonic stricture on the splenic flexure causing partial SBO. Consulted surgery. She will be scheduled for a colonoscopy possibly tomorrow. (3) Acute on chronic kidney failure Qualifiers: Acute renal failure type: unspecified Chronic kidney disease stage: stage 5, not on chronic dialysis Qualified Code(s): N17.9 - Acute kidney failure, unspecified; N18.5 - Chronic kidney disease, stage 5 Is this a current diagnosis for this admission?: Yes Plan: Improving. Creatinine improving and now at baseline. May be initiated on peritoneal dialysis later per nephrology and patient's choice. (4) Migraine headache Qualifiers: Migraine type: unspecified Status migrainosus presence: without status migrainosus Intractability: not intractable Qualified Code(s): G43.909 - Migraine, unspecified, not intractable, without status migrainosus Is this a current diagnosis for this admission?: Yes Plan: She says she did not get relief with Tylenol. Fioricet prn. - Time Time Spent with patient: 35 or more minutes
[2018-06-05] MEDS ORDERED: DEXTROSE 50%-WATER 25 GM/50 ML DISP.SYRIN IV PRN ×2 (20:36)
[2018-06-05] MEDS ORDERED: GLUCAGON,HUMAN RECOMB 1 MG INJ SUBCUT PRN (20:36)
[2018-06-05] MEDS ORDERED: DEXTROSE 40% GEL 15 GM TUBE PO PRN ×2 (20:36)
--- NOTE | 2018-06-05 20:36 | PDOC CONSULTATION ---
Consultation Consult Date: 06/05/18 Consult reason:: left colon mass History of Present Illness Admission Date/PCP: 06/02/18 19:29 SABRINA MONTES MD History of Present Illness: DAREN ROSS is a 52 year old female with a past medical history of hypertension, migraine, diabetes, chronic pain, depression, PTSD, dyslipidemia, H. pylori positive pangastritis and stage V chronic kidney disease not yet on dialysis who presented with worsening nausea and vomiting. She has been having on and off nausea and vomiting for the past few months. She underewnt an EGD short time ago positive for H. Pilorii gastritis. Due to her symptoms and recent onset of constipation (last bowel movement 5 days ago), she has undergone a CT scan A/P today. This demonstrates large amount of stools in the right and transverse colon with decompressed descending colon. According to the Radiologists, the findings are worrisome for possible neoplastic stricture at the level of the splenic flexure. However, the patient had a CT scan A/P on 10/26/15 which demonstrated similar findings: large amount of stools throughout the colon (cecum to sigmoid) with sigmoid mucosa thickening. The possibility of sigmoid neoplasia could not be completely excluded by the radiologist. No colonoscopy was performed after the CT scan in 2016. She c/o LUQ abdominal pain. Past Medical History Cardiac Medical History: Reports: Hyperlipidema, Hypertension Denies: Coronary Artery Disease, Myocardial Infarction Pulmonary Medical History: Reports: Sleep Apnea Denies: Asthma, Bronchitis, Chronic Obstructive Pulmonary Disease (COPD), Pneumonia Neurological Medical History: Reports: Migraine Denies: Seizures Endocrine Medical History: Reports: Diabetes Mellitus Type 2, Obesity Renal/ Medical History: Reports: End Stage Renal Disease, Other - FSGS by biopsy in 2004 GI Medical History: Reports: Gastroesophageal Reflux Disease, Other - Diverticulosis and IBS Musculoskeltal Medical History: Reports: Arthritis - right knee, Fibromyalgia Skin Medical History: Denies: Eczema, Psoriasis Psychiatric Medical History: Reports: Depression, General Anxiety Disorder, Post Traumatic Stress Disorder Hematology: Reports: Anemia Past Surgical History Past Surgical History: Reports: Appendectomy, Cardiac Catheterization - 3, last one 3 years ago showing no blockages, Cholecystectomy, Hysterectomy, Orthopedic Surgery - RIGHT ANKLE SURGERY 01/2011, shoulder surgery 12/2106, Vascular Surgery - port a cath R upper chest Denies: Pacemaker Social History Lives with: Family - and daughter Smoking Status: Never Smoker Frequency of Alcohol Use: None Hx Recreational Drug Use: No Drugs: None Hx Prescription Drug Abuse: No - Advance Directive Resuscitation Status: Full Code Family History Family History: CAD, CVA, Hypertension Parental Family History Reviewed: Yes - CAD< CVA, HTN Children Family History Reviewed: No Sibling(s) Family History Reviewed.: No Medication/Allergy Home Medications: Amoxicillin Trihydrate [Amoxil 500 mg Capsule] 1,000 mg PO Q12 06/02/18 Aripiprazole [Abilify 15 mg Tablet] 15 mg PO DAILY 06/02/18 Bismuth Subsalicylate [Pepto-Bismol] 262 mg PO BID 06/02/18 Calcitriol 1 mcg PO DAILY 06/02/18 Clarithromycin [Biaxin 500 mg Tablet] 500 mg PO Q12 06/02/18 Clonidine HCl [Catapres 0.3 mg Tablet] 0.3 mg PO TID 06/02/18 Divalproex Sodium [Depakote ER 500 mg Tab.sr] 500 mg PO BID 06/02/18 Escitalopram Oxalate [Lexapro] 40 mg PO DAILY 06/02/18 Eszopiclone [Lunesta] 3 mg PO QHS 06/02/18 Furosemide [Lasix 40 mg Tablet] 40 mg PO DAILY 06/02/18 Gabapentin [Neurontin 100 mg Capsule] 100 mg PO DAILY 06/02/18 Hydromorphone HCl [Dilaudid] 4 mg PO QID 06/02/18 Lisinopril [Zestril] 10 mg PO BID 06/02/18 Metoclopramide HCl [Reglan 10 mg Tablet] 10 mg PO ACHS 06/02/18 Omeprazole 40 mg PO ACBRKFST 06/02/18 Pantoprazole Sodium [Protonix] 40 mg PO BID 06/02/18 Polyethylene Glycol 3350 [Miralax Powder 17 gm/Packet] 17 mg PO DAILY 06/02/18 Promethazine HCl [Phenergan 25 mg Tablet] 50 mg PO QIDP PRN 06/02/18 Allergies/Adverse Reactions: codeine [Codeine] Allergy (Mild, Verified 06/02/18 16:14) Itching ketorolac tromethamine [From Toradol] Allergy (Unknown, Verified 06/02/18 16:14) Anxiety nalbuphine HCl [From Nubain] Allergy (Unknown, Verified 06/02/18 16:14) Anxiety ondansetron HCl [From Zofran] Allergy (Unknown, Verified 06/02/18 16:14) Itching droperidol [Droperidol] Allergy (Verified 06/02/18 16:14) reports heart racing, doesn't like how it makes her feel Physical Exam Vital Signs: Temp Pulse Resp BP Pulse Ox 97.9 F 58 L 14 138/92 H 100 06/05/18 15:14 06/05/18 15:14 06/05/18 15:14 06/05/18 15:14 06/05/18 15:14 Intake & Output 06/04/18 06/05/18 06/06/18 06:59 06:59 06:59 Intake Total 2800 2720 337 Output Total 2900 3700 1800 Balance -753 -915 -3533 Weight 46 kg 46.7 kg Results Laboratory Results: 06/05/18 05:10 06/05/18 05:10 06/05/18 06/05/18 05:10 05:10 WBC 4.1 RBC 3.31 L Hgb 10.5 L Hct 30.4 L MCV 92 MCH 31.7 MCHC 34.5 RDW 13.9 Plt Count 97 L Seg Neutrophils % 39.6 L Lymphocytes % 50.3 H Monocytes % 7.6 Eosinophils % 2.1 Basophils % 0.4 Absolute Neutrophils 1.6 L Absolute Lymphocytes 2.1 Absolute Monocytes 0.3 Absolute Eosinophils 0.1 Absolute Basophils 0.0 Sodium 141.4 Potassium 4.2 Chloride 109 H Carbon Dioxide 27 Anion Gap 5 BUN 25 H Creatinine 4.98 H Est GFR ( Amer) 11 L Est GFR (Non-Af Amer) 9 L Glucose 86 Calcium 8.9 06/02/18 06/02/18 06/03/18 17:28 17:28 06:00 Creatine Kinase 61 58 CK-MB (CK-2) 0.83 Troponin I 0.015 06/03/18 06:00 Creatine Kinase CK-MB (CK-2) 1.24 Troponin I 0.016 Impressions: Abdomen/Pelvis CT 06/05/18 00:00 IMPRESSION: Massive amount of stool in the ascending and transverse colon, and splenic flexure. Just past the splenic flexure, there is a tight narrowing, with the remainder of the colon decompressed. Differential is stricture versus neoplasm causing partial colon obstruction. Post hysterectomy. Post cholecystectomy. Assessment & Plan - Diagnosis (1) Constipation Qualifiers: Constipation type: unspecified constipation type Qualified Code(s): K59.00 - Constipation, unspecified Is this a current diagnosis for this admission?: Yes - Plan Summary Plan Summary: A/ Constipation Colonic distention with stools (cecum to splenic flexure) identified oin CT scan A/P done today (06/05/18); Thickening of colonic mucosa at splenic flexure reported by Radiologist: p ossibility of neoplasia could not be ruled out Similar findings were reported in CT scan A/P report done on 10/26/15 (colon filled with stools cecum to sigmoid with sigmoid mucosa thickening: similarly, the possibility of sigmoid neoplasia was raised by Radiologist); however, no follow up colonosocpy or CT scan was performed afterward. P/ Colonoscopy with biopsy tomorrow under IV sedation Bowel prep with Golytely and enemas NPO after midnight Procedure, risks, benefits, complications explained to the patient, she understands, her questions were answered, and she decides to proceed.
[2018-06-05] MEDS ORDERED: BISACODYL 5 MG TABEC PO ONE (20:37)
[2018-06-05] MEDS ORDERED: PEG 3350/NA SULF,BICARB,CL/KCL 4000 ML PO ONE (20:37)
[2018-06-05] MEDS ORDERED: PEG 3350/NA SULF,BICARB,CL/KCL 4000 ML ONE (20:59)
[2018-06-05] MEDS: ZOLPIDEM TARTRATE 5 MG TABLET PO SCH (21:17)
[2018-06-06] MEDS: PROMETHAZINE HCL INJ 25 MG/1 ML VIAL IM PRN ×4 (00:45→23:51)
[2018-06-06] MEDS ORDERED: PEG 3350/NA SULF,BICARB,CL/KCL 4000 ML PO ONE (05:00)
[2018-06-06] MEDS ORDERED: BISACODYL 5 MG TABEC PO ONE (05:00)
[2018-06-06] MEDS ORDERED: PEG 3350/NA SULF,BICARB,CL/KCL 4000 ML ONE (05:23)
[2018-06-06] MEDS: CLONIDINE HCL 0.1 MG TABLET PO SCH ×3 (05:40→21:51)
[2018-06-06] MEDS: INSULIN LISPRO 100 UNIT/ML 3 ML VIAL SUBCUT SCH ×4 (08:44→21:51)
[2018-06-06] MEDS: MORPHINE SULFATE 10 MG/ML INJ IV PRN ×2 (09:22→16:56)
[2018-06-06] MEDS: PANTOPRAZOLE SODIUM 40 MG VIAL IV SCH (09:23)
[2018-06-06] MEDS ORDERED: PROPOFOL INJ 200 MG/20 ML VIAL IV ONE (09:27)
[2018-06-06] MEDS: GABAPENTIN 100 MG CAPSULE PO SCH (09:28)
[2018-06-06] MEDS: FUROSEMIDE 40 MG TABLET PO SCH (09:28)
[2018-06-06] MEDS: ESCITALOPRAM OXALATE 10 MG TABLET PO SCH (09:28)
[2018-06-06] MEDS: LISINOPRIL 10 MG TABLET PO SCH ×2 (09:28→21:51)
[2018-06-06] MEDS: DIVALPROEX SODIUM 500 MG TAB.SR.24H PO SCH ×2 (09:28→16:59)
[2018-06-06] MEDS: AMOXICILLIN TRIHYDRATE 500 MG CAPSULE PO SCH ×2 (09:29→21:51)
[2018-06-06] MEDS: CALCITRIOL 0.25 MCG CAPSULE PO SCH (09:29)
[2018-06-06] MEDS: BISMUTH SUBSALICYLATE 262 MG TAB.CHEW PO SCH ×2 (09:30→17:05)
[2018-06-06] MEDS: CLARITHROMYCIN 500 MG TABLET PO SCH ×2 (09:30→21:51)
[2018-06-06] MEDS: POLYETHYLENE GLYCOL 3350 POWDER 17 GM/1 PACKET PO SCH ×2 (09:30→17:05)
[2018-06-06] MEDS: ARIPIPRAZOLE 5 MG TABLET PO SCH (09:30)
[2018-06-06] MEDS: DOCUSATE SODIUM 100 MG CAPSULE PO SCH ×2 (09:31→17:05)
[2018-06-06] MEDS: 1/2 NORMAL SALINE 1,000 ML IV PRN (09:57)
--- NOTE | 2018-06-06 10:33 | PDOC PROGRESS REPORT ---
Subjective Progress Note for:: 06/06/18 Reason For Visit: Patient seen this morning in the hospital. She is continuing to have intermittent nausea and vomiting. Is also rather constipated. She just had a CT scan that shows massive amount of stools in the ascending and transverse colon with stricture around the splenic flexure. Differentials includes stricture versus neoplasm. She is set up for a colonoscopy later this morning. She denies any history of abdominal pains. She is not eating and drinking as much as she should. Labs and medications were reviewed with the patient. Her creatinine is back to baseline. Physical Exam Vital Signs: Temp Pulse Resp BP Pulse Ox 98.2 F 61 16 154/103 H 100 06/06/18 07:15 06/06/18 07:15 06/06/18 07:15 06/06/18 07:15 06/06/18 07:15 Intake & Output 06/05/18 06/06/18 06/07/18 06:59 06:59 06:59 Intake Total 2720 1371 1000 Output Total 3700 2550 Balance -980 -1179 1000 Weight 46.7 kg 45.5 kg General appearance: PRESENT: no acute distress Respiratory exam: PRESENT: clear to auscultation slaazar. ABSENT: crackles Cardiovascular exam: PRESENT: +S1, +S2 GI/Abdominal exam: PRESENT: normal bowel sounds, soft, tenderness - Left lower quadrant.. ABSENT: organomegaly Extremities exam: PRESENT: pedal edema Neurological exam: PRESENT: alert, awake, oriented to person, oriented to place Psychiatric exam: PRESENT: anxious Skin exam: ABSENT: erythema, mottled, rash Results Laboratory Results: 06/05/18 05:10 06/05/18 05:10 06/02/18 06/02/18 06/03/18 17:28 17:28 06:00 Creatine Kinase 61 58 CK-MB (CK-2) 0.83 Troponin I 0.015 06/03/18 06:00 Creatine Kinase CK-MB (CK-2) 1.24 Troponin I 0.016 Impressions: Abdomen/Pelvis CT 06/05/18 00:00 IMPRESSION: Massive amount of stool in the ascending and transverse colon, and splenic flexure. Just past the splenic flexure, there is a tight narrowing, with the remainder of the colon decompressed. Differential is stricture versus neoplasm causing partial colon obstruction. Post hysterectomy. Post cholecystectomy. Assessment & Plan - Diagnosis (1) Acute on chronic kidney failure Qualifiers: Acute renal failure type: unspecified Chronic kidney disease stage: stage 5, not on chronic dialysis Qualified Code(s): N17.9 - Acute kidney failure, unspecified; N18.5 - Chronic kidney disease, stage 5 Is this a current diagnosis for this admission?: Yes Plan: She was obviously dehydrated during her initial presentation because of her nausea vomiting. She is being rehydrated and her kidney functions have reverted back to baseline which is around 4.5-4.8. No indications for renal replacements currently. (2) Large bowel obstruction Plan: Being evaluated after the CT scan showed retained stools in the ascending and transverse colon with stricture in the splenic flexure region.Further plans after the procedure is done and will be outlined by the surgeons. (3) Dehydration Is this a current diagnosis for this admission?: Yes Plan: Resolved with IV fluid resuscitation. (4) Diabetes mellitus type 2 in nonobese Is this a current diagnosis for this admission?: Yes Plan: Advised tight control. (5) H pylori ulcer Is this a current diagnosis for this admission?: Yes Plan: Possibly the cause for her some of the nausea and vomiting. However now that we know she is got a large bowel constipation with splenic stricture that is being evaluated, that could be the other reason to her persistent nausea and vomiting. Await colonoscopy evaluations by the surgeons. (6) Nausea & vomiting Qualifiers: Vomiting type: unspecified Vomiting Intractability: non-intractable Qualified Code(s): R11.2 - Nausea with vomiting, unspecified Is this a current diagnosis for this admission?: Yes Plan: As mentioned earlier. (7) Chronic kidney disease, stage V Is this a current diagnosis for this admission?: Yes Plan: She is back to her baseline creatinine of around 4.5. No symptoms to indicate uremia, congestive heart failure. I elect lites are stable. No indications currently for renal replacement initiation. (8) Constipation Qualifiers: Constipation type: unspecified constipation type Qualified Code(s): K59.00 - Constipation, unspecified Is this a current diagnosis for this admission?: Yes Plan: CT scan shows large amounts of stool within the ascending and transverse colon with stricture in the splenic flexure area that is being evaluated with a colonoscopy and further plans as being outlined by the surgeons. (9) Hypertension Is this a current diagnosis for this admission?: Yes Plan: Controlled. Monitor.
--- NOTE | 2018-06-06 10:36 | Operative Report ---
Nonrecallable Operative Report DATE OF SURGERY: 06/06/18 PREOPERATIVE DIAGNOSIS: colon filled with fecal matter. suspected narrowing of colonic splemic flexure POSTOPERATIVE DIAGNOSIS: chronic constipation. normal colonscopy to cecum OPERATION: colonoscopy to cecum SURGEON: COURT TRAMMELL ANESTHESIA: LMAC TISSUE REMOVED OR ALTERED: n/a COMPLICATIONS: none ESTIMATED BLOOD LOSS: n/a INTRAOPERATIVE FINDINGS: normal colonoscopy to cecum PROCEDURE: see dictation
--- NOTE | 2018-06-06 10:38 | Progress Note ---
Provider Note Provider Note: Colonoscopy to cecum performed. Colon prep fair; no lesion noted and colonoscopy was normal to cecum. recommend to repeat colonoscopy in 5 years I will sign off, please, call me with questions
[2018-06-06] MEDS ORDERED: SCOPOLAMINE HYDROBROMIDE 1.5 MG PATCH.TD72 ONE (10:48)
[2018-06-06] MEDS ORDERED: PROMETHAZINE HCL INJ 25 MG/1 ML VIAL ONE (10:48)
--- NOTE | 2018-06-06 12:18 | PDOC PROGRESS REPORT ---
Subjective Progress Note for:: 06/06/18 Subjective:: This is a 52 year old female with a past medical history of hypertension, migraine, diabetes, chronic pain, depression, PTSD, dyslipidemia, H. 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 She has been having on and off nausea and vomiting for the past few months. She was recently started on treatment for H. pylori with clarithromycin, bismuth and a PPI for H. pylori 2 weeks ago without significant improvement in symptoms. She was found to have acute on top of chronic renal failure in the ER. 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 On encounter, she complains of nausea. She is not in distress. Denies chest pain, abdominal pain or SOB. She is asking for IV phenergan as she has PO ordered. Explained will switch to IV if she has recurrence of N/V or retching. She does complain of migraine headache this morning. 06/04: Patient reported of one episode of vomiting early this morning to RN. Per RN, patient was not seen by RN retching but she saw small pieces of omelet on vomit bag. Patient says she continues to have on and off nausea. Denies any other acute symptoms. She does not appear to be in distress. 06/05: No vomiting overnight but she did complain of nausea. She reports having LLQ pain this morning. She says her last BM was 4 days ago. Will order CT of the abdomen/pelvis. 06/06: No acute issues. She says her abdominal pain has improved. No recurrence of vomiting so far. She had regular BMs with the colon prep. Patient just went for colonoscopy. Reason For Visit: ARF NAUSEA VOMITING PTSD Physical Exam Vital Signs: Temp Pulse Resp BP Pulse Ox 97.6 F 61 14 141/80 H 97 06/06/18 11:08 06/06/18 11:08 06/06/18 11:08 06/06/18 11:08 06/06/18 11:08 Intake & Output 06/05/18 06/06/18 06/07/18 06:59 06:59 06:59 Intake Total 2720 1371 1060 Output Total 3700 2550 0 Balance -980 -1179 1060 Weight 102 lb 15.294 oz 100 lb 4.965 oz General appearance: PRESENT: no acute distress, well-developed, well-nourished Head exam: PRESENT: atraumatic, normocephalic Eye exam: PRESENT: conjunctiva pink, EOMI, PERRLA. ABSENT: scleral icterus Ear exam: PRESENT: normal external ear exam Mouth exam: PRESENT: moist, tongue midline Neck exam: ABSENT: carotid bruit, JVD, lymphadenopathy, thyromegaly Respiratory exam: PRESENT: clear to auscultation salazar. ABSENT: rales, rhonchi, wheezes Cardiovascular exam: PRESENT: RRR. ABSENT: diastolic murmur, rubs, systolic mu rmur Pulses: PRESENT: normal dorsalis pedis pul GI/Abdominal exam: PRESENT: normal bowel sounds, soft. ABSENT: distended, guarding, mass, organolmegaly, rebound, tenderness Rectal exam: PRESENT: deferred Neurological exam: PRESENT: alert, awake, oriented to person, oriented to place, oriented to time, oriented to situation, CN II-XII grossly intact. ABSENT: motor sensory deficit Results Laboratory Results: 06/05/18 05:10 06/05/18 05:10 06/02/18 06/02/18 06/03/18 17:28 17:28 06:00 Creatine Kinase 61 58 CK-MB (CK-2) 0.83 Troponin I 0.015 06/03/18 06:00 Creatine Kinase CK-MB (CK-2) 1.24 Troponin I 0.016 Impressions: Abdomen/Pelvis CT 06/05/18 00:00 IMPRESSION: Massive amount of stool in the ascending and transverse colon, and splenic flexure. Just past the splenic flexure, there is a tight narrowing, with the remainder of the colon decompressed. Differential is stricture versus neoplasm causing partial colon obstruction. Post hysterectomy. Post cholecystectomy. Assessment & Plan - Diagnosis (1) Small bowel obstruction Is this a current diagnosis for this admission?: Yes Plan: Partial SBO. 06/05: CT of the abdomen/pelvis shows severe colonic stricture on the splenic flexure causing partial SBO. She leon shave history of endometriosis, hysterectomy and cholecystectomy. Possible adhesions vs mass. 06/06: She just went for colonoscopy. (2) Nausea & vomiting Qualifiers: Vomiting type: unspecified Vomiting Intractability: non-intractable Qualified Code(s): R11.2 - Nausea with vomiting, unspecified Is this a current diagnosis for this admission?: Yes Plan: Likely multifactorial from H. pylori duodenitis, renal failure and now partial SBO. No witnessed recurrence of vomiting yet. Continue PO phenergan for now. 06/03: IV phenergan prn added. 06/04: She was recommended possible need for gastric emptying study but reportedly was told by GI clinic to proceed to ER on this recent hospitalization when she had recurrence/worsening of her nausea/vomiting. Nursing staff will be monitoring patient for recurrence of any retching or vomiting. Switched IV phenergan to IM. 06/05: She complains of LLQ pain this morning. CT of the abdomen/pelvis shows severe colonic stricture on the splenic flexure causing partial SBO. Consulted surgery. She will be scheduled for a colonoscopy possibly tomorrow. 06/06: Improved. She reports nausea but no recurrence of vomiting so far. (3) Acute on chronic kidney failure Qualifiers: Acute renal failure type: unspecified Chronic kidney disease stage: stage 5, not on chronic dialysis Qualified Code(s): N17.9 - Acute kidney failure, unspecified; N18.5 - Chronic kidney disease, stage 5 Is this a current diagnosis for this admission?: Yes Plan: Improving. Creatinine improving and now at baseline. May be initiated on peritoneal dialysis later per nephrology and patient's choice. (4) Migraine headache Qualifiers: Migraine type: unspecified Status migrainosus presence: without status migrainosus Intractability: not intractable Qualified Code(s): G43.909 - Migraine, unspecified, not intractable, without status migrainosus Is this a current diagnosis for this admission?: Yes Plan: She says she did not get relief with Tylenol. Fioricet prn. - Time Time Spent with patient: 25-34 minutes
--- NOTE | 2018-06-06 15:50 | OPERATIVE REPORT E ---
Operative Report NAME: DAREN ROSS : 1965 AGE: 52Y DATE OF SURGERY: 06/06/2018 ROOM: 335 PREOPERATIVE DIAGNOSES: 1. Nausea, vomiting. 2. Colonic distention. 3. Suspected narrowing of the colonic splenic flexure. POSTOPERATIVE DIAGNOSES: 1. Normal colonoscopy to cecum. 2. Chronic constipation. PROCEDURE: Colonoscopy to cecum. SURGEON: COURT TRAMMELL M.D. COBOL MAINFRAME DEVELOPER: None. ESTIMATED BLOOD LOSS: Negligible. COMPLICATIONS: None. ANESTHESIA: Propofol provided by the anesthesiologist. FLUIDS: 50 mL. INDICATION AND FINDINGS: This is a 52-year-old -[place] female with a history of constipation, recent obstipation, nausea, vomiting. CAT scan of the abdomen was done yesterday revealing a colon field with fecal matter from the cecum up to the splenic flexure with decompressed descending colon. stricture of splenic flexure was raised by the radiologist. The patient was scheduled to undergo colonoscopy today. Procedure risks, benefits, and complications explained to the patient. She understands and desires to proceed. DESCRIPTION OF PROCEDURE: The patient was brought to the operating room. The patient was placed in lateral decubitus. General anesthesia provided by anesthesiologist via propofol. The colonoscope was inserted per rectum and advanced through the colon up to the cecum. The preparation was fair. No mass reported or other changes were identified. The area of the cecum and all the areas of the colon were well irrigated with exposure of the mucosa and no lesions were noted. At the level of the rectum the scope was retroflexed and no lesions were seen. The instrument was removed. The patient tolerated the procedure well and transferred to the recovery room in satisfactory condition. DICTATING PHYSICIAN: COURT TRAMMELL M.D. [id number] PHY#: [id number] ID: [id number] JOB#: [id number] ACCT: [id number] cc:COURT TRAMMELL M.D. > MTDD
--- NOTE | 2018-06-06 16:13 | PDOC PROGRESS REPORT ---
Subjective Progress Note for:: 06/06/18 Subjective:: This is a 52 year old female with a past medical history of hypertension, migraine, diabetes, chronic pain, depression, PTSD, dyslipidemia, H. 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 She has been having on and off nausea and vomiting for the past few months. She was recently started on treatment for H. pylori with clarithromycin, bismuth and a PPI for H. pylori 2 weeks ago without significant improvement in symptoms. She was found to have acute on top of chronic renal failure in the ER. 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 On encounter, she complains of nausea. She is not in distress. Denies chest pain, abdominal pain or SOB. She is asking for IV phenergan as she has PO ordered. Explained will switch to IV if she has recurrence of N/V or retching. She does complain of migraine headache this morning. 06/04: Patient reported of one episode of vomiting early this morning to RN. Per RN, patient was not seen by RN retching but she saw small pieces of omelet on vomit bag. Patient says she continues to have on and off nausea. Denies any other acute symptoms. She does not appear to be in distress. 06/05: No vomiting overnight but she did complain of nausea. She reports having LLQ pain this morning. She says her last BM was 4 days ago. Will order CT of the abdomen/pelvis. 06/06: No acute issues. She says her abdominal pain has improved. No recurrence of vomiting so far. She had regular BMs with the colon prep. Patient just went for colonoscopy. Reason For Visit: ARF NAUSEA VOMITING PTSD Physical Exam Vital Signs: Temp Pulse Resp BP Pulse Ox 97.6 F 107 H 14 141/80 H 97 06/06/18 11:08 06/06/18 14:00 06/06/18 11:08 06/06/18 11:08 06/06/18 11:08 Intake & Output 06/05/18 06/06/18 06/07/18 06:59 06:59 06:59 Intake Total 2720 1371 1060 Output Total 3700 2550 0 Balance -980 -1179 1060 Weight 102 lb 15.294 oz 100 lb 4.965 oz Results Laboratory Results: 06/05/18 05:10 06/05/18 05:10 06/02/18 06/02/18 06/03/18 17:28 17:28 06:00 Creatine Kinase 61 58 CK-MB (CK-2) 0.83 Troponin I 0.015 06/03/18 06:00 Creatine Kinase CK-MB (CK-2) 1.24 Troponin I 0.016 Impressions: Abdomen/Pelvis CT 06/05/18 00:00 IMPRESSION: Massive amount of stool in the ascending and transverse colon, and splenic flexure. Just past the splenic flexure, there is a tight narrowing, with the remainder of the colon decompressed. Differential is stricture versus neoplasm causing partial colon obstruction. Post hysterectomy. Post cholecystectomy. Assessment & Plan - Diagnosis (1) Small bowel obstruction Is this a current diagnosis for this admission?: Yes (2) Nausea & vomiting Qualifiers: Vomiting type: unspecified Vomiting Intractability: non-intractable Qualified Code(s): R11.2 - Nausea with vomiting, unspecified Is this a current diagnosis for this admission?: Yes (3) Acute on chronic kidney failure Qualifiers: Acute renal failure type: unspecified Chronic kidney disease stage: stage 5, not on chronic dialysis Qualified Code(s): N17.9 - Acute kidney failure, unspecified; N18.5 - Chronic kidney disease, stage 5 Is this a current diagnosis for this admission?: Yes (4) Migraine headache Qualifiers: Migraine type: unspecified Status migrainosus presence: without status migrainosus Intractability: not intractable Qualified Code(s): G43.909 - Migraine, unspecified, not intractable, without status migrainosus Is this a current diagnosis for this admission?: Yes - Time Time Spent with patient: 25-34 minutes
[2018-06-06 18:50] LABS: ANION GAP 8 (5-19); BLOOD UREA NITROGEN 23 mg/dL (7-20); CALCIUM 8.6 mg/dL (8.4-10.2); CARBON DIOXIDE 24 mmol/L (22-30); CHLORIDE 105 mmol/L (98-107); GLUCOSE 129 mg/dL (75-110); POTASSIUM 3.3 mmol/L (3.6-5.0); SODIUM 136.8 mmol/L (137-145)
[2018-06-06] MEDS: NORMAL SALINE 1000 ML 1,000 ML IV PRN (20:14)
[2018-06-06] MEDS: ZOLPIDEM TARTRATE 5 MG TABLET PO SCH (21:51)
[2018-06-06] MEDS: ACETAMINOPHEN 325 MG TABLET PO PRN (23:51)
[2018-06-07] MEDS: CLONIDINE HCL 0.1 MG TABLET PO SCH ×3 (06:06→21:57)
[2018-06-07] MEDS: INSULIN LISPRO 100 UNIT/ML 3 ML VIAL SUBCUT SCH ×4 (09:21→21:51)
[2018-06-07] MEDS: PANTOPRAZOLE SODIUM 40 MG VIAL IV SCH (10:07)
[2018-06-07] MEDS: LISINOPRIL 10 MG TABLET PO SCH ×2 (10:07→21:58)
[2018-06-07] MEDS: DOCUSATE SODIUM 100 MG CAPSULE PO SCH ×2 (10:07→19:00)
[2018-06-07] MEDS: ARIPIPRAZOLE 5 MG TABLET PO SCH (10:08)
[2018-06-07] MEDS: POLYETHYLENE GLYCOL 3350 POWDER 17 GM/1 PACKET PO SCH ×2 (10:08→20:02)
[2018-06-07] MEDS: CALCITRIOL 0.25 MCG CAPSULE PO SCH (10:08)
[2018-06-07] MEDS: GABAPENTIN 100 MG CAPSULE PO SCH (10:08)
[2018-06-07] MEDS: FUROSEMIDE 40 MG TABLET PO SCH (10:08)
[2018-06-07] MEDS: ESCITALOPRAM OXALATE 10 MG TABLET PO SCH (10:09)
[2018-06-07] MEDS: DIVALPROEX SODIUM 500 MG TAB.SR.24H PO SCH ×2 (10:10→17:48)
[2018-06-07] MEDS: CLARITHROMYCIN 500 MG TABLET PO SCH ×2 (10:11→22:00)
[2018-06-07] MEDS: AMOXICILLIN TRIHYDRATE 500 MG CAPSULE PO SCH ×2 (10:11→21:59)
[2018-06-07] MEDS: BISMUTH SUBSALICYLATE 262 MG TAB.CHEW PO SCH ×2 (10:12→20:02)
[2018-06-07] MEDS: NORMAL SALINE 1000 ML 1,000 ML IV PRN ×2 (10:17→23:51)
--- NOTE | 2018-06-07 10:56 | PDOC PROGRESS REPORT ---
Subjective Progress Note for:: 06/07/18 Reason For Visit: Patient has no more nausea vomiting. She had a colonoscopy which did not show any malignant lesion. She has been getting morphine and Dilaudid here in the hospital which I believe has been also adding more to her presenting problems. Labs and medications were reviewed that shows a stable creatinine. Potassium was low at 3.3. Physical Exam Vital Signs: Temp Pulse Resp BP Pulse Ox 97.4 F 56 L 20 144/82 H 100 06/07/18 03:25 06/07/18 07:00 06/07/18 03:25 06/07/18 03:25 06/07/18 03:25 Intake & Output 06/06/18 06/07/18 06/08/18 06:59 06:59 06:59 Intake Total 1371 3505 1000 Output Total 2550 0 Balance -1179 3505 1000 Weight 45.5 kg General appearance: PRESENT: no acute distress Respiratory exam: PRESENT: clear to auscultation salazar. ABSENT: crackles Cardiovascular exam: PRESENT: +S1, +S2 GI/Abdominal exam: PRESENT: normal bowel sounds, soft, tenderness - Left lower quadrant.. ABSENT: organomegaly Neurological exam: PRESENT: alert, awake, oriented to person, oriented to place, oriented to time Psychiatric exam: PRESENT: appropriate affect Results Laboratory Results: 06/05/18 05:10 06/06/18 18:10 06/06/18 18:10 Sodium 136.8 L Potassium 3.3 L Chloride 105 Carbon Dioxide 24 Anion Gap 8 BUN 23 H Creatinine 4.81 H Est GFR ( Amer) 11 L Est GFR (Non-Af Amer) 10 L Glucose 129 H Calcium 8.6 06/02/18 06/02/18 06/03/18 17:28 17:28 06:00 Creatine Kinase 61 58 CK-MB (CK-2) 0.83 Troponin I 0.015 06/03/18 06:00 Creatine Kinase CK-MB (CK-2) 1.24 Troponin I 0.016 Impressions: Abdomen/Pelvis CT 06/05/18 00:00 IMPRESSION: Massive amount of stool in the ascending and transverse colon, and splenic flexure. Just past the splenic flexure, there is a tight narrowing, with the remainder of the colon decompressed. Differential is stricture versus neoplasm causing partial colon obstruction. Post hysterectomy. Post cholecystectomy. Assessment & Plan - Diagnosis (1) Acute on chronic kidney failure Qualifiers: Acute renal failure type: unspecified Chronic kidney disease stage: stage 5, not on chronic dialysis Qualified Code(s): N17.9 - Acute kidney failure, unspecified; N18.5 - Chronic kidney disease, stage 5 Is this a current diagnosis for this admission?: Yes Plan: She was obviously dehydrated during her initial presentation because of her nausea vomiting. She is being rehydrated and her kidney functions have reverted back to baseline which is around 4.5-4.8. No indications for renal replacements currently.Her renal functions are back to baseline.Advised on preventing further nausea vomiting and constipation by starting to taper off the narcotics that she is on at home.She is ready to be discharged from a renal point of view.Advised that she gets her labs done in about 2 weeks post discharge and see me in the office as a follow-up. (2) Large bowel obstruction Plan: She had a lot of stools and a large bowels. We discussed tapering off the narcotics to prevent further constipation in the future which would lead to further nausea and vomiting and lead to dehydration and precipitation of AK I. (3) Dehydration Is this a current diagnosis for this admission?: Yes Plan: Currently resolved. (4) Diabetes mellitus type 2 in nonobese Is this a current diagnosis for this admission?: Yes Plan: Advised tight control. (5) H pylori ulcer Is this a current diagnosis for this admission?: Yes Plan: This has been treated in the past. I do not think that this is a cause for her presentation. (6) Nausea & vomiting Qualifiers: Vomiting type: unspecified Vomiting Intractability: non-intractable Qualified Code(s): R11.2 - Nausea with vomiting, unspecified Is this a current diagnosis for this admission?: Yes Plan: Resolved. Advised as mentioned earlier is that she should taper off the narcotics at home which I think is causing her constipation which then leads to nausea vomiting and dehydration (7) Chronic kidney disease, stage V Is this a current diagnosis for this admission?: Yes Plan: She is back to her baseline creatinine of around 4.5. No symptoms to indicate uremia, congestive heart failure. Potassium is slightly low at 3.3 and I am starting her on low-dose of KCl replacement. No indications currently for renal replacement initiation. (8) Constipation Qualifiers: Constipation type: unspecified constipation type Qualified Code(s): K59.00 - Constipation, unspecified Is this a current diagnosis for this admission?: Yes Plan: Advised as mentioned earlier (9) Hypertension Is this a current diagnosis for this admission?: Yes Plan: Controlled. Monitor.
[2018-06-07] MEDS: POTASSIUM CHLORIDE 10 MEQ CAPSULE.ER PO SCH (13:13)
[2018-06-07 14:48] LABS: ALANINE AMINOTRANSFERASE 12 U/L (9-52); ALBUMIN 2.9 g/dL (3.5-5.0); ALKALINE PHOSPHATASE 53 U/L (38-126); ANION GAP 7 (5-19); ASPARTATE AMINO TRANSFERASE 17 U/L (14-36); BILIRUBIN,DIRECT 0.4 mg/dL (0.0-0.4); BILIRUBIN,TOTAL 0.4 mg/dL (0.2-1.3); BLOOD UREA NITROGEN 22 mg/dL (7-20); CARBON DIOXIDE 23 mmol/L (22-30); CHLORIDE 111 mmol/L (98-107); GLUCOSE 95 mg/dL (75-110); POTASSIUM 3.8 mmol/L (3.6-5.0); TOTAL PROTEIN 5.9 g/dL (6.3-8.2)
[2018-06-07] MEDS: MORPHINE SULFATE 10 MG/ML INJ IV PRN ×2 (17:49→23:51)
[2018-06-07] MEDS: PROMETHAZINE HCL 25 MG TABLET PO PRN (17:49)
[2018-06-07] MEDS: HYDRALAZINE HCL 25 MG TABLET PO SCH ×2 (17:52→21:57)
--- NOTE | 2018-06-07 18:29 | PDOC PROGRESS REPORT ---
Subjective Progress Note for:: 06/07/18 Subjective:: This is a 52 year old female with a past medical history of hypertension, migraine, diabetes, chronic pain, depression, PTSD, dyslipidemia, H. 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 She has been having on and off nausea and vomiting for the past few months. She was recently started on treatment for H. pylori with clarithromycin, bismuth and a PPI for H. pylori 2 weeks ago without significant improvement in symptoms. She was found to have acute on top of chronic renal failure in the ER. No acute events overnight. Patient is status post uneventful colonoscopy which was read as negative. Complaining of diarrhea likely caused by GoLYTELY for bowel prep. Persistent nausea. Eyes any fever, chills, chest pain, constipation or any urinary symptoms. Reason For Visit: ARF NAUSEA VOMITING PTSD Physical Exam Vital Signs: Temp Pulse Resp BP Pulse Ox 98.7 F 58 L 16 171/91 H 97 06/07/18 16:15 06/07/18 16:15 06/07/18 16:15 06/07/18 16:15 06/07/18 16:15 Intake & Output 06/06/18 06/07/18 06/08/18 06:59 06:59 06:59 Intake Total 1371 3505 1000 Output Total 2550 0 Balance -1179 3505 1000 Weight 45.5 kg General appearance: PRESENT: no acute distress, well-developed, well-nourished Head exam: PRESENT: atraumatic, normocephalic Respiratory exam: PRESENT: clear to auscultation salazar. ABSENT: rales, rhonchi, wheezes Cardiovascular exam: PRESENT: RRR. ABSENT: diastolic murmur, rubs, systolic murmur GI/Abdominal exam: PRESENT: normal bowel sounds, soft. ABSENT: distended, guarding, mass, organolmegaly, rebound, tenderness Extremities exam: PRESENT: full ROM. ABSENT: calf tenderness, clubbing, pedal edema Neurological exam: PRESENT: alert, awake, oriented to person, oriented to place, oriented to time, oriented to situation, CN II-XII grossly intact. ABSENT: motor sensory deficit Skin exam: PRESENT: dry, intact, warm. ABSENT: cyanosis, rash Results Laboratory Results: 06/05/18 05:10 06/07/18 14:20 06/06/18 06/07/18 18:10 14:20 Sodium 136.8 L 141.0 Potassium 3.3 L 3.8 Chloride 105 111 H Carbon Dioxide 24 23 Anion Gap 8 7 BUN 23 H 22 H Creatinine 4.81 H 4.80 H Est GFR ( Amer) 11 L 12 L Est GFR (Non-Af Amer) 10 L 10 L Glucose 129 H 95 Calcium 8.6 9.0 Total Bilirubin 0.4 AST 17 ALT 12 Alkaline Phosphatase 53 Total Protein 5.9 L Albumin 2.9 L 06/02/18 06/02/18 06/03/18 17:28 17:28 06:00 Creatine Kinase 61 58 CK-MB (CK-2) 0.83 Troponin I 0.015 06/03/18 06:00 Creatine Kinase CK-MB (CK-2) 1.24 Troponin I 0.016 Impressions: Abdomen/Pelvis CT 06/05/18 00:00 IMPRESSION: Massive amount of stool in the ascending and transverse colon, and splenic flexure. Just past the splenic flexure, there is a tight narrowing, with the remainder of the colon decompressed. Differential is stricture versus neoplasm causing partial colon obstruction. Post hysterectomy. Post cholecystectomy. Assessment & Plan - Diagnosis (1) Large bowel obstruction Is this a current diagnosis for this admission?: Yes Plan: Ruled out. Negative colonoscopy. Abdominal pain improving. Patient had received GoLYTELY for bowel prep and has resolved she was having diarrhea postprocedure which resolved. History of endometriosis status post hysterectomy slightly contributing to chronic strictures. 06/05/2018. Just past the splenic flexure, there is a tight narrowing, with the remainder of the colon decompressed. Differential is stricture versus neoplasm causing partial colon obstruction. (2) Acute on chronic kidney failure Qualifiers: Acute renal failure type: unspecified Chronic kidney disease stage: stage 5, not on chronic dialysis Qualified Code(s): N17.9 - Acute kidney failure, unspecified; N18.5 - Chronic kidney disease, stage 5 Is this a current diagnosis for this admission?: Yes Plan: Improving. Creatinine back at baseline. Nonoliguric. Electrolytes within normal limits. Nephrology following. Outpatient nephrology follow-up. Monitor volume status and electrolytes. (3) Nausea & vomiting Qualifiers: Vomiting type: unspecified Vomiting Intractability: non-intractable Qualified Code(s): R11.2 - Nausea with vomiting, unspecified Is this a current diagnosis for this admission?: Yes Plan: Persistent nausea, denies any vomiting. Likely multifactorial from H. pylori duodenitis, renal failure and chronic opioid use for pain. Continue Phenergan. (4) Migraine headache Qualifiers: Migraine type: unspecified Status migrainosus presence: without status migrainosus Intractability: not intractable Qualified Code(s): G43.909 - Migraine, unspecified, not intractable, without status migrainosus Is this a current diagnosis for this admission?: Yes Plan: Continue home meds. (5) H pylori ulcer Is this a current diagnosis for this admission?: Yes Plan: Patient was started on triple therapy for H. pylori by GI as outpatient she did not finish due to nausea vomiting. Restart to complete the course. Patient PCP and GI follow-up. (6) Hypertension Is this a current diagnosis for this admission?: Yes Plan: Controlled. Added hydralazine 25 p.o. twice daily. Optimize blood pressure. Will Discharge home to follow-up with PCP and nephrology as outpatient.
[2018-06-07] MEDS: ZOLPIDEM TARTRATE 5 MG TABLET PO SCH (21:57)
[2018-06-08] MEDS: CLONIDINE HCL 0.1 MG TABLET PO SCH ×2 (06:09→13:12)
[2018-06-08] MEDS: INSULIN LISPRO 100 UNIT/ML 3 ML VIAL SUBCUT SCH ×2 (07:19→12:48)
[2018-06-08] MEDS: MORPHINE SULFATE 10 MG/ML INJ IV PRN (08:00)
[2018-06-08] MEDS: PROMETHAZINE HCL 25 MG TABLET PO PRN (08:00)
[2018-06-08] MEDS: CALCITRIOL 0.25 MCG CAPSULE PO SCH (09:33)
[2018-06-08] MEDS: GABAPENTIN 100 MG CAPSULE PO SCH (09:35)
[2018-06-08] MEDS: ARIPIPRAZOLE 5 MG TABLET PO SCH (09:35)
[2018-06-08] MEDS: ESCITALOPRAM OXALATE 10 MG TABLET PO SCH (09:36)
[2018-06-08] MEDS: PANTOPRAZOLE SODIUM 40 MG VIAL IV SCH (09:36)
[2018-06-08] MEDS: FUROSEMIDE 40 MG TABLET PO SCH (09:36)
[2018-06-08] MEDS: POTASSIUM CHLORIDE 10 MEQ CAPSULE.ER PO SCH (09:36)
[2018-06-08] MEDS: AMOXICILLIN TRIHYDRATE 500 MG CAPSULE PO SCH (09:37)
[2018-06-08] MEDS: CLARITHROMYCIN 500 MG TABLET PO SCH (09:37)
[2018-06-08] MEDS: BISMUTH SUBSALICYLATE 262 MG TAB.CHEW PO SCH (09:37)
[2018-06-08] MEDS: DOCUSATE SODIUM 100 MG CAPSULE PO SCH (09:38)
[2018-06-08] MEDS: POLYETHYLENE GLYCOL 3350 POWDER 17 GM/1 PACKET PO SCH (09:38)
[2018-06-08] MEDS: DIVALPROEX SODIUM 500 MG TAB.SR.24H PO SCH (09:38)
[2018-06-08] MEDS ORDERED: HYDRALAZINE HCL 50 MG TABLET PO SCH (10:00)
[2018-06-08] MEDS ORDERED: HYDRALAZINE HCL 25 MG TABLET PO SCH (10:00)
[2018-06-08] MEDS: LISINOPRIL 10 MG TABLET PO SCH (10:05)
[2018-06-08] MEDS: ACETAMINOPHEN 325 MG TABLET PO PRN (10:06)
--- NOTE | 2018-06-08 10:32 | PDOC PROGRESS REPORT ---
Subjective Progress Note for:: 06/08/18 Reason For Visit: Patient seen today. She is feeling much better. She says she did not take any more morphine on until this morning. Labs are pending. She is feeling back to baseline. Discussions were done with the treating nurse. Physical Exam Vital Signs: Temp Pulse Resp BP Pulse Ox 98.4 F 56 L 18 155/81 H 100 06/08/18 08:04 06/08/18 08:04 06/08/18 08:04 06/08/18 08:04 06/08/18 08:04 Intake & Output 06/07/18 06/08/18 06/09/18 06:59 06:59 06:59 Intake Total 3505 2591 Output Total 0 650 Balance 3505 1941 General appearance: PRESENT: no acute distress Respiratory exam: PRESENT: clear to auscultation salazar. ABSENT: crackles Cardiovascular exam: PRESENT: +S1, +S2 GI/Abdominal exam: PRESENT: normal bowel sounds, soft, tenderness - Left lower quadrant.. ABSENT: organomegaly Extremities exam: ABSENT: pedal edema Neurological exam: PRESENT: alert, awake, oriented to person, oriented to place, oriented to time Results Laboratory Results: 06/05/18 05:10 06/07/18 14:20 Sodium 141.0 Potassium 3.8 Chloride 111 H Carbon Dioxide 23 Anion Gap 7 BUN 22 H Creatinine 4.80 H Est GFR ( Amer) 12 L Est GFR (Non-Af Amer) 10 L Glucose 95 Calcium 9.0 Total Bilirubin 0.4 AST 17 ALT 12 Alkaline Phosphatase 53 Total Protein 5.9 L Albumin 2.9 L 06/02/18 06/02/18 06/03/18 17:28 17:28 06:00 Creatine Kinase 61 58 CK-MB (CK-2) 0.83 Troponin I 0.015 06/03/18 06:00 Creatine Kinase CK-MB (CK-2) 1.24 Troponin I 0.016 Impressions: Abdomen/Pelvis CT 06/05/18 00:00 IMPRESSION: Massive amount of stool in the ascending and transverse colon, and splenic flexure. Just past the splenic flexure, there is a tight narrowing, with the remainder of the colon decompressed. Differential is stricture versus neoplasm causing partial colon obstruction. Post hysterectomy. Post cholecystectomy. Assessment & Plan - Diagnosis (1) Acute on chronic kidney failure Qualifiers: Acute renal failure type: unspecified Chronic kidney disease stage: stage 5, not on chronic dialysis Qualified Code(s): N17.9 - Acute kidney failure, unspecified; N18.5 - Chronic kidney disease, stage 5 Is this a current diagnosis for this admission?: Yes Plan: She was obviously dehydrated during her initial presentation because of her nausea vomiting. She is being rehydrated and her kidney functions have reverted back to baseline which is around 4.5-4.8. No indications for renal replacements currently.Her renal functions are back to baseline.Advised on preventing further nausea vomiting and constipation by starting to taper off the narcotics that she is on at home.She is ready to be discharged from a renal point of view.Advised that she gets her labs done in about 2 weeks post discharge and see me in the office as a follow-up. (2) Large bowel obstruction Is this a current diagnosis for this admission?: Yes Plan: She had a lot of stools and a large bowels. We discussed tapering off the narcotics to prevent further constipation in the future which would lead to further nausea and vomiting and lead to dehydration and precipitation of AK I. (3) Dehydration Is this a current diagnosis for this admission?: Yes Plan: Currently resolved. Back to eating and drinking normally. (4) Diabetes mellitus type 2 in nonobese Is this a current diagnosis for this admission?: Yes (5) H pylori ulcer Is this a current diagnosis for this admission?: Yes (6) Nausea & vomiting Qualifiers: Vomiting type: unspecified Vomiting Intractability: non-intractable Qualified Code(s): R11.2 - Nausea with vomiting, unspecified Is this a current diagnosis for this admission?: Yes (7) Chronic kidney disease, stage V Is this a current diagnosis for this admission?: Yes Plan: She is back to her baseline creatinine of around 4.5. No symptoms to indicate uremia, congestive heart failure. Potassium was low yesterday and today's labs are pending. No indications currently for renal replacement initiation. (8) Constipation Qualifiers: Constipation type: unspecified constipation type Qualified Code(s): K59.00 - Constipation, unspecified Is this a current diagnosis for this admission?: Yes Plan: Advised as mentioned earlier (9) Hypertension Is this a current diagnosis for this admission?: Yes Plan: Controlled. Monitor.
[2018-06-08 10:47] LABS: ANION GAP 6 (5-19); BLOOD UREA NITROGEN 22 mg/dL (7-20); CALCIUM 8.9 mg/dL (8.4-10.2); CARBON DIOXIDE 24 mmol/L (22-30); CHLORIDE 111 mmol/L (98-107); GLUCOSE 81 mg/dL (75-110); POTASSIUM 3.6 mmol/L (3.6-5.0); SODIUM 141.4 mmol/L (137-145)
[2018-06-08 12:50] VITALS: BP 127/79
--- NOTE | 2018-06-08 18:32 | PDOC DISCHARGE SUMMARY ---
General - Admit/Disc Date/PCP Admission Date/Primary Care Provider: 06/02/18 19:29 SABRINA MONTES MD Discharge Date: 06/08/18 - Discharge Diagnosis (1) Large bowel obstruction Is this a current diagnosis for this admission?: Yes (2) Acute on chronic kidney failure Is this a current diagnosis for this admission?: Yes (3) Nausea & vomiting Is this a current diagnosis for this admission?: Yes (4) Migraine headache Is this a current diagnosis for this admission?: Yes (5) H pylori ulcer Is this a current diagnosis for this admission?: Yes (6) Hypertension Is this a current diagnosis for this admission?: Yes - Additional Information Resuscitation Status: Full Code Discharge Diet: As Tolerated Discharge Activity: Activity As Tolerated Prescriptions: Docusate Sodium [Colace] 200 mg PO BID PRN 30 Days #60 capsule PRN Reason: RX: Hydralazine HCl [Apresoline 50 mg Tablet] 50 mg PO Q12 30 Days #60 tablet Home Medications: Amoxicillin Trihydrate [Amoxil 500 mg Capsule] 1,000 mg PO Q12 06/02/18 Aripiprazole [Abilify 15 mg Tablet] 15 mg PO DAILY 06/02/18 Bismuth Subsalicylate [Pepto-Bismol] 262 mg PO BID 06/02/18 Calcitriol 1 mcg PO DAILY 06/02/18 Clarithromycin [Biaxin 500 mg Tablet] 500 mg PO Q12 06/02/18 Clonidine HCl [Catapres 0.3 mg Tablet] 0.3 mg PO TID 06/02/18 Divalproex Sodium [Depakote ER 500 mg Tab.sr] 500 mg PO BID 06/02/18 Escitalopram Oxalate [Lexapro] 40 mg PO DAILY 06/02/18 Eszopiclone [Lunesta] 3 mg PO QHS 06/02/18 Furosemide [Lasix 40 mg Tablet] 40 mg PO DAILY 06/02/18 Gabapentin [Neurontin 100 mg Capsule] 100 mg PO DAILY 06/02/18 Hydromorphone HCl [Dilaudid] 4 mg PO QID 06/02/18 Lisinopril [Zestril] 10 mg PO BID 06/02/18 Metoclopramide HCl [Reglan 10 mg Tablet] 10 mg PO ACHS 06/02/18 Pantoprazole Sodium [Protonix] 40 mg PO BID 06/02/18 Polyethylene Glycol 3350 [Miralax Powder 17 gm/Packet] 17 mg PO DAILY 06/02/18 Promethazine HCl [Phenergan 25 mg Tablet] 50 mg PO QIDP PRN 06/02/18 Docusate Sodium [Colace] 200 mg PO BID PRN 30 Days #60 capsule 06/08/18 Hydralazine HCl [Apresoline 50 mg Tablet] 50 mg PO Q12 30 Days #60 tablet 06/08/18 History of Present Illness History of Present Illness: DAREN ROSS is a 52 year old female with a past medical history of hypertension, migraine, diabetes, chronic pain, depression, PTSD, dyslipidemia, H. 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 She has been having on and off nausea and vomiting for the past few months. She was recently started on treatment for H. pylori with clarithromycin, bismuth and a P PI for H. pylori 2 weeks ago without significant improvement in symptoms. Hospital Course Hospital Course: (1) Large bowel obstruction Ruled out. Negative colonoscopy. Abdominal pain improving. Patient had received GoLYTELY for bowel prep and has resolved she was having diarrhea postprocedure which resolved. History of endometriosis status post hysterectomy likely contributing to colonic strictures. 06/05/2018. Just past the splenic flexure, there is a tight narrowing, with the remainder of the colon decompressed. Differential is stricture versus neoplasm causing partial colon obstruction. (2) Acute on chronic kidney failure Improving. Creatinine back at baseline. Nonoliguric. Electrolytes within normal limits. Nephrology following. Outpatient nephrology follow-up. Monitor volume status and electrolytes. Outpatient nephrology follow-up. (3) Nausea & vomiting Persistent nausea, denies any vomiting. Likely multifactorial from H. pylori duodenitis, renal failure and chronic opioid use for pain. Continue Phenergan. Was advised to wean off of chronic opiate use as it could be contributing/exacerbating her chronic nausea vomiting. (4) Migraine headache Was restarted on home meds. (5) H pylori ulcer Patient was continued on her on triple therapy for H. pylori. Asked to resume her triple therapy complete the course. I will asked to continue pantoprazole 40 twice daily completing 6 weeks. Follow-up with GI. (6) Hypertension Continued on lisinopril, clonidine, added hydralazine 50 mg p.o. twice daily. Up with PCP for adjustment of blood pressure medications. Physical Exam Vital Signs: Temp Pulse Resp BP Pulse Ox 97.7 F 64 18 127/79 H 100 06/08/18 14:25 06/08/18 14:25 06/08/18 14:25 06/08/18 14:25 06/08/18 14:25 Intake & Output 06/07/18 06/08/18 06/09/18 06:59 06:59 06:59 Intake Total 3505 2591 1000 Output Total 0 650 Balance 3505 1941 1000 General appearance: PRESENT: no acute distress, well-developed, well-nourished Head exam: PRESENT: atraumatic, normocephalic Neck exam: ABSENT: carotid bruit, JVD, lymphadenopathy, thyromegaly Respiratory exam: PRESENT: clear to auscultation salazar. ABSENT: rales, rhonchi, wheezes Cardiovascular exam: PRESENT: RRR. ABSENT: diastolic murmur, rubs, systolic murmur GI/Abdominal exam: PRESENT: normal bowel sounds, soft. ABSENT: distended, guarding, mass, organolmegaly, rebound, tenderness Neurological exam: PRESENT: alert, awake, oriented to person, oriented to place, oriented to time, oriented to situation, CN II-XII grossly intact. ABSENT: motor sensory deficit Results Laboratory Results: 06/05/18 05:10 06/08/18 10:00 06/08/18 10:00 Sodium 141.4 Potassium 3.6 Chloride 111 H Carbon Dioxide 24 Anion Gap 6 BUN 22 H Creatinine 4.49 H Est GFR ( Amer) 12 L Est GFR (Non-Af Amer) 10 L Glucose 81 Calcium 8.9 06/02/18 06/02/18 06/03/18 17:28 17:28 06:00 Creatine Kinase 61 58 CK-MB (CK-2) 0.83 Troponin I 0.015 06/03/18 06:00 Creatine Kinase CK-MB (CK-2) 1.24 Troponin I 0.016 Impressions: Abdomen/Pelvis CT 06/05/18 00:00 IMPRESSION: Massive amount of stool in the ascending and transverse colon, and splenic flexure. Just past the splenic flexure, there is a tight narrowing, with the remainder of the colon decompressed. Differential is stricture versus neoplasm causing partial colon obstruction. Post hysterectomy. Post cholecystectomy. Qualifiers - * PATIENT BEING DISCHARGED WITH ANY OF THE FOLLOWING DIAGNOSIS: No
--- NOTE | 2018-06-08 18:40 | EKG REPORT ---
SEVERITY:- ABNORMAL ECG - SINUS RHYTHM LEFT VENTRICULAR HYPERTROPHY : Confirmed by: Eliseo Locke MD 08-Jun-2018 18:39:35
== END 2018-06-08 15:15 | disposition home or self-care (01) | DRG 389 ==
LOC: ER 16:14 → EH 19:29 → OBSVTOIN 19:29 → 3N 23:08 → 3S 06-06 12:31
PROVIDERS: ADMIT Internal Medicine; ATTEND Surgery
PROC: 0DJD8ZZ Inspection of Lower Intestinal Tract, Via Natural or Artificial Opening Endoscopic (ICD-10-PCS; principal; 2018-06-06 10:00)
DX: K56.609 Unspecified intestinal obstruction, unspecified as to partial versus complete obstruction (principal); N17.9 Acute kidney failure, unspecified; I12.0 Hypertensive chronic kidney disease with stage 5 chronic kidney disease or end stage renal disease; N18.5 Chronic kidney disease, stage 5; I12.9 Hypertensive chronic kidney disease with stage 1 through stage 4 chronic kidney disease, or unspecified chronic kidney disease; E11.22 Type 2 diabetes mellitus with diabetic chronic kidney disease; E86.0 Dehydration; K29.70 Gastritis, unspecified, without bleeding; K59.09 Other constipation; K25.9 Gastric ulcer, unspecified as acute or chronic, without hemorrhage or perforation; B96.81 Helicobacter pylori [H. pylori] as the cause of diseases classified elsewhere; D64.9 Anemia, unspecified; G43.909 Migraine, unspecified, not intractable, without status migrainosus; K21.9 Gastro-esophageal reflux disease without esophagitis; G89.29 Other chronic pain; G47.30 Sleep apnea, unspecified; E78.5 Hyperlipidemia, unspecified; M79.7 Fibromyalgia; F43.10 Post-traumatic stress disorder, unspecified; M19.90 Unspecified osteoarthritis, unspecified site; F32.9 Major depressive disorder, single episode, unspecified; F41.1 Generalized anxiety disorder; Z79.899 Other long term (current) drug therapy; Z90.49 Acquired absence of other specified parts of digestive tract; Z90.710 Acquired absence of both cervix and uterus; Z88.8 Allergy status to other drugs, medicaments and biological substances
CPT/HCPCS: 36415; 45380; 74176; 80048; 80053; 80164; 80307; 81001; 812; 82550; 82553; 82962; 83036; 84484; 85025; 93005; 93010; 99284; J0780; J1200; J1644; J2270; J2550; J2704; J3490; J7030; S0164

== ENCOUNTER 2018-09-15 11:33 | Emergency (ER) | payer MEDICAID ==
[2018-09-15 11:50] VITALS: BP 149/103
--- NOTE | 2018-09-16 19:27 | EKG REPORT ---
SEVERITY:- ABNORMAL ECG - SINUS RHYTHM LEFT VENTRICULAR HYPERTROPHY : Confirmed by: Abigail Mandel MD 16-Sep-2018 19:25:50
== END 2018-09-15 12:00 | disposition left against medical advice (07) ==
LOC: ER 11:33
DX: Z53.21 Procedure and treatment not carried out due to patient leaving prior to being seen by health care provider (principal)
CPT/HCPCS: 93005; 93010

== ENCOUNTER 2019-01-05 12:45 | Emergency (ER) | payer MEDICAID ==
[2019-01-05 13:02] VITALS: BP 112/68
--- NOTE | 2019-01-05 13:05 | ER Document Report ---
ED General - General Chief Complaint: Near Syncope Stated Complaint: WEAKNESS Time Seen by Provider: 01/05/19 13:02 Primary Care Provider: JACKIE MUNOZ DO [Primary Care Provider] - Follow up as needed TRAVEL OUTSIDE OF THE [place] IN LAST 30 DAYS: No - HPI Patient complains to provider of: syncope Notes: Well-appearing female had an episode of syncope at dialysis this morning. Was not able to complete her session got lightheaded and passed out. Presents now with no complaints. - Related Data Allergies/Adverse Reactions: codeine [Codeine] Allergy (Mild, Verified 09/15/18 11:36) Itching ketorolac tromethamine [From Toradol] Allergy (Unknown, Verified 09/15/18 11:36) Anxiety nalbuphine HCl [From Nubain] Allergy (Unknown, Verified 09/15/18 11:36) Anxiety ondansetron HCl [From Zofran] Allergy (Unknown, Verified 09/15/18 11:36) Itching droperidol [Droperidol] Allergy (Verified 09/15/18 11:36) reports heart racing, doesn't like how it makes her feel Past Medical History - Social History Smoking Status: Unknown if Ever Smoked Family History: CAD, CVA, Hypertension - Past Medical History Cardiac Medical History: Reports: Hx Hypercholesterolemia, Hx Hypertension Denies: Hx Coronary Artery Disease, Hx Heart Attack Pulmonary Medical History: Reports: Hx Sleep Apnea Denies: Hx Asthma, Hx Bronchitis, Hx COPD, Hx Pneumonia Neurological Medical History: Reports: Hx Migraine. Denies: Hx Cerebrovascular Accident, Hx Seizures Endocrine Medical History: Reports: Hx Diabetes Mellitus Type 2 Renal/ Medical History: Reports: Hx End Stage Renal Disease, Hx Renal Insufficiency. Denies: Hx Peritoneal Dialysis GI Medical History: Reports: Hx Gastroesophageal Reflux Disease, Hx Irritable Bowel Musculoskeletal Medical History: Reports Hx Arthritis - right knee, Reports Hx Fibromyalgia, Reports Hx Musculoskeletal Deformity, Reports Hx Musculoskeletal Trauma Skin Medical History: Denies Hx Eczema, Denies Hx Psoriasis Psychiatric Medical History: Reports: Hx Depression, Hx Post Traumatic Stress Disorder Past Surgical History: Reports: Hx Appendectomy, Hx Cardiac Catheterization - 3, last one 3 years ago showing no blockages, Hx Cholecystectomy, Hx Hysterectomy, Hx Orthopedic Surgery - RIGHT ANKLE SURGERY 01/2011, shoulder surgery 12/2106, Hx Thyroid Surgery, Hx Vascular Surgery - port a cath R upper chest. Denies: Hx Pacemaker - Immunizations Hx Diphtheria, Pertussis, Tetanus Vaccination: Yes - 06/17/17 Hx Pneumococcal Vaccination: 04/19/17 Physical Exam - Vital signs Vitals: Temp Pulse Resp BP Pulse Ox 97.8 F 98 16 112/68 98 01/05/19 13:01 01/05/19 13:01 01/05/19 13:01 01/05/19 13:01 01/05/19 13:01 - Notes Notes: PHYSICAL EXAMINATION: GENERAL: Well-appearing, well-nourished and in no acute distress. HEAD: Atraumatic, normocephalic. EYES: Pupils equal round and reactive to light, extraocular movements intact, sclera anicteric, conjunctiva are normal. ENT: nares patent, oropharynx clear without exudates. Moist mucous membranes. NECK: Normal range of motion, supple without lymphadenopathy LUNGS: Breath sounds clear to auscultation bilaterally and equal. No wheezes rales or rhonchi. HEART: Regular rate and rhythm without murmurs ABDOMEN: Soft, nontender, normoactive bowel sounds. No guarding, no rebound. No masses appreciated. EXTREMITIES: Normal range of motion, no pitting or edema. No cyanosis. NEUROLOGICAL: Cranial nerves grossly intact. Normal speech, normal gait. Normal sensory and motor exams. PSYCH: Normal mood, normal affect. SKIN: Warm, Dry, normal turgor, no rashes or lesions noted. Course - Re-evaluation Re-evalutation: 01/05/19 13:05 Well-appearing 53-year-old female presents with episode of syncope at her dialysis center. At this time patient is feeling better does not want to have a work-up performed here. Does not want blood work. bedside agrees she has decision-making capacity discussed need for evaluation. Patient be discharged home improved. - Vital Signs Vital signs: Temp Pulse Resp BP Pulse Ox 97.8 F 98 16 112/68 98 01/05/19 13:01 01/05/19 13:01 01/05/19 13:01 01/05/19 13:01 01/05/19 13:01 Discharge - Discharge Clinical Impression: Syncope Qualifiers: Syncope type: unspecified Qualified Code(s): R55 - Syncope and collapse Condition: Stable Disposition: HOME, SELF-CARE Referrals: JACKIE MUNOZ DO [Primary Care Provider] - Follow up as needed
== END 2019-01-05 13:14 | disposition home or self-care (01) ==
LOC: ER 12:45
DX: R55 Syncope and collapse (principal); R42 Dizziness and giddiness; I12.0 Hypertensive chronic kidney disease with stage 5 chronic kidney disease or end stage renal disease; N18.6 End stage renal disease; E11.22 Type 2 diabetes mellitus with diabetic chronic kidney disease; Z99.2 Dependence on renal dialysis; Z88.5 Allergy status to narcotic agent; Z88.8 Allergy status to other drugs, medicaments and biological substances

== ENCOUNTER → 2019-03-10 | Outpatient (CLI) | payer OTHER, MEDICAID ==
--- NOTE | 2019-03-10 15:23 | WOMENS IMAGING REPORT ---
EXAM DESCRIPTION: BILAT SCREENING MAMMO W/CAD COMPLETED DATE/TIME: 03/10/2019 1:20 pm REASON FOR STUDY: Z12.31 SCREENING MAMMO Z12.31 ENCNTR SCREEN MAMMOGRAM FOR MALIGNANT NEOPLASM OF B RE COMPARISON: Multiple since 2014 EXAM PARAMETERS: Standard craniocaudal and mediolateral oblique views of each breast recorded using digital acquisition. Read with the assistance of CAD. .[facility] [place] - [employer] Version 2.4 LIMITATIONS: None. FINDINGS: Findings present which are benign by mammographic criteria. No suspicious masses, calcifi cations or architectural distortion. Pertinent benign findings: Benign bilateral breast parenchymal and skin calcifications. Right-sided chest wall permanent central line projected over the pectoralis muscle on right breast MLO view. Benign mammographic findings may include one or more of the following: Smooth masses, popcorn/rim/co arse calcifications, asymmetries, post-procedure changes, and lesions with long-standing stability. IMPRESSION: BENIGN MAMMOGRAPHIC FINDINGS. BIRADS 2 BREAST DENSITY: c. The breasts are heterogeneously dense, which may obscure small masses. BIRAD: ASSESSMENT: 2 BENIGN FINDING(S) RECOMMENDATION: ROUTINE SCREENING Please continue yearly bilateral screening mammography/tomosynthesis in February 2020 COMMENT: The patient has been notified of the results by letter per [place] requirements. Additional no tification policies are in place for contacting patient with suspicious or incomplete findings. Quality ID #[id number]: [employer] recommends an annual screening mammogram for women aged 40 years or over. This facility utilizes a reminder system to ensure that all patients receive reminder letters, and/or direct phone calls for appointments. This includes reminders for routine scr eening mammograms, diagnostic mammograms, or other Breast Imaging Interventions when appropriate. Th is patient will be placed in the appropriate reminder system. TECHNICAL DOCUMENTATION: FINDING NUMBER: (1) ASSESSMENT: (1) JOB ID: [id number] [employer]- All Rights Reserved Reading location - IP/workstation name: [email or web address]
== END ==
LOC: WI 12:45
PROVIDERS: ATTEND Family Medicine
DX: Z12.31 Encounter for screening mammogram for malignant neoplasm of breast (principal)
CPT/HCPCS: 77067

== ENCOUNTER → 2019-10-28 | Outpatient (CLI) | payer OTHER, MEDICAID ==
--- NOTE | 2019-10-28 13:05 | ER RDC ASSESSMENT REPORT ---
Intake - In the Last 14 days Have you traveled outside [place]?: No Have you been in close contact with someone CONFIRMED: Yes Worked in Healthcare?: No - Symptoms Subjective Fever([place] feverish): No Chills: No Muscule Aches: No Runny Nose: No Sore Throat: No Cough (New or worsening chronic cough): No Shortness of breath: No Nausea or Vomiting: No Headache: No Abdominal Pain: No Diarrhea(3 or more loose stools in last 24 hours): No - Do you have any of the following Chronic lung disease: Asthma or emphysema or COPD: Yes Chronic Lung Disease Comment: COPD Cystic Fibrosis: No Diabetes: Yes High Blood Pressure: Yes Cardiovascular Disease: Yes Chronic Kidney Disease: No Chronic Liver Disease: No Chronic blood disorder like Sickle Cell Disease: No Weak immune system due to disease or medication: No Neurologic condition that limits movement: No Developmental delay - Moderate to Severe: No Recent (within past 2 weeks) or current : No Morbid Obesity (>100 pounds over ideal weight): Yes - Objective Temperature: 99 F Pulse Rate: 87 Respiratory Rate: 18 Blood Pressure: 115/65 O2 Sat by Pulse Oximetry: 92 Objective: Patient is a well-appearing 54-year-old female who presents today for COVID-19 screening. Disposition: Home; Selfcare General - General Stated Complaint: Upper respiratory symptoms Mode of Arrival: Ambulatory Information source: Patient Notes: The patient was evaluated during the global COVID-19 pandemic. That diagnosis was suspected/considered upon initial presentation. Their evaluation, treatment, and testing was consistent with current guidelines for patients who present with complaints or symptoms that may be related to COVID-19. - HPI Patient complains to provider of: No complaint, asymptomatic Quality of pain: No pain Severity: None Pain Level: Denies Associated symptoms: None Exacerbated by: Denies Relieved by: Denies Similar symptoms previously: No Recently seen / treated by doctor: No - Related Data Allergies/Adverse Reactions: codeine [Codeine] Allergy (Mild, Verified 09/15/18 11:36) Itching ketorolac tromethamine [From Toradol] Allergy (Unknown, Verified 09/15/18 11:36) Anxiety nalbuphine HCl [From Nubain] Allergy (Unknown, Verified 09/15/18 11:36) Anxiety ondansetron HCl [From Zofran] Allergy (Unknown, Verified 09/15/18 11:36) Itching droperidol [Droperidol] Allergy (Verified 09/15/18 11:36) reports heart racing, doesn't like how it makes her feel Past Medical History - General Information source: Patient - Social History Smoking Status: Never Smoker Cigarette use (# per day): No Chew tobacco use (# tins/day): No Smoking Education Provided: No Frequency of alcohol use: None Drug Abuse: None Occupation: Retired Family History: CAD, CVA, Hypertension Patient has suicidal ideation: No Patient has homicidal ideation: No - Past Medical History Cardiac Medical History: Reports: Hx Hypercholesterolemia, Hx Hypertension Denies: Hx Coronary Artery Disease, Hx Heart Attack Pulmonary Medical History: Reports: Hx Sleep Apnea Denies: Hx Asthma, Hx Bronchitis, Hx COPD, Hx Pneumonia Neurological Medical History: Reports: Hx Migraine. Denies: Hx Cerebrovascular Accident, Hx Seizures Endocrine Medical History: Reports: Hx Diabetes Mellitus Type 2 Renal/ Medical History: Reports: Hx End Stage Renal Disease, Hx Renal Insufficiency. Denies: Hx Peritoneal Dialysis GI Medical History: Reports: Hx Gastroesophageal Reflux Disease, Hx Irritable Bowel Musculoskeletal Medical History: Reports Hx Arthritis - right knee, Reports Hx Fibromyalgia, Reports Hx Musculoskeletal Deformity, Reports Hx Musculoskeletal Trauma Skin Medical History: Denies Hx Eczema, Denies Hx Psoriasis Psychiatric Medical History: Reports: Hx Depression, Hx Post Traumatic Stress Disorder Past Surgical History: Reports: Hx Appendectomy, Hx Cardiac Catheterization - 3, last one 3 years ago showing no blockages, Hx Cholecystectomy, Hx Hysterectomy, Hx Orthopedic Surgery - RIGHT ANKLE SURGERY 01/2011, shoulder surgery 12/2106, Hx Thyroid Surgery, Hx Vascular Surgery - port a cath R upper chest. Denies: Hx Pacemaker Physical Exam - General General appearance: Appears well In distress: None Notes: PHYSICAL EXAMINATION: GENERAL: Well-appearing and in no acute distress. HEAD: Atraumatic, normocephalic. EYES: sclera anicteric, conjunctiva are normal. ENT: nares patent. Moist mucous membranes. NECK: Normal range of motion, supple without lymphadenopathy. LUNGS: CTAB and equal. No wheezes rales or rhonchi. HEART: Regular rate and rhythm without murmurs. EXTREMITIES: Normal range of motion, no pitting edema. No cyanosis. BACK: No midline or CVA tenderness. NEUROLOGICAL: Cranial nerves grossly intact. Normal speech. Normal gait. PSYCH: Normal mood, normal affect. SKIN: Warm, Dry, normal color and turgor, no obvious lesions or rash noted. Diagnostic Results Laboratory Results: Patient advised at this time they are considered a Person Under Investigation (PUI) for the COVID-19 Coronavirus. They have been made aware it is currently taking 3-5 days to receive their results, and [facility] Department will call to advise them of their result, whether it is POSITIVE or NEGATIVE. Patient Education/Counseling Counseling/Education: Patient presents with upper respiratory symptoms worrisome for possible COVID- 19. Patient does not have symptoms worrisome as an emergency such as difficulty breathing, shortness of breath, chest pain, pressure, confusion or cyanosis. Patient appears suitable for discharge as they are not of an advanced age, do not have any chronic medical conditions such as diabetes, CAD, immune defi ciency, chronic lung disease or chronic kidney disease. Patient's vital signs are stable and patient is nontoxic in appearance. Good return precautions have been discussed with patient, patient verbalized understanding and is agreeable with discharge plan of care at this time. Patient provided COVID-19 discharge instructions to include: As a person under investigation for COVID-19, the [place] department of Health and Human Services, division of public health advises you to adhere to the following guidance until your test results are reported to you. If your test result is positive, you will receive additional information from your provider and your local health department at that time. Remain at home until you are cleared by the health provider or public health authorities. Keep a log of visitors to your home, notify any visitors to your home of your isolation status. If you plan to move to a new address or leave the [facility], notify the local health department in your County. Call your doctor or seek care if you have an urgent medical need. Before seeking medical care, call ahead to get instructions from the provider before arriving at the medical office clinic or hospital. Notify them that you are being tested for the virus that causes COVID-19 so that arrangements can be made, as necessary, to prevent transmission to others in the healthcare setting. Next, notify the local health department in your [facility]. If a medical emergency arises and you need to call 911, inform dispatch and the first responders that you are being tested for the virus that causes COVID-19. Next, notify the local health department in your county.
[2019-10-28 13:34] VITALS: BP 115/65
== END ==
LOC: RDC 10:50
PROVIDERS: ATTEND Nurse Practitioner Family
DX: Z20.828 Contact with and (suspected) exposure to other viral communicable diseases (principal); J44.9 Chronic obstructive pulmonary disease, unspecified; I10 Essential (primary) hypertension; E11.9 Type 2 diabetes mellitus without complications; E78.00 Pure hypercholesterolemia, unspecified; K21.9 Gastro-esophageal reflux disease without esophagitis; Z88.6 Allergy status to analgesic agent; Z88.8 Allergy status to other drugs, medicaments and biological substances
CPT/HCPCS: 87635; C9803; 99201; 99211

== ENCOUNTER 2019-11-24 23:38 | Emergency (ER) | payer OTHER, MEDICARE, MEDICAID ==
--- NOTE | 2019-11-25 00:21 | ER Document Report ---
ED Medical Screen (RME) - General Chief Complaint: port issue Stated Complaint: PORT PULLED OUT Time Seen by Provider: 11/25/19 00:10 Primary Care Provider: JAYLIN LEROY PA-C [Primary Care Provider] - Follow up as needed Mode of Arrival: Wheelchair Information source: Patient Notes: HPI; 54-year-old female presented to the emergency room via EMS after her dialysis catheter in the left side of her chest was accidentally pulled out. Patient states she has an autistic child that was laying across her legs went to give her a hug when the catheter accidentally got pulled out. PE: Alert and oriented x3. Moderate distress noted. Bleeding noted to the dressing. Dialysis catheter was noted to be laying on the patient's chest. Did not remove dressing to fully evaluate site. Lungs: Clear to auscultation without rales, rhonchi, wheezes. Heart: Regular rate and rhythm without murmurs, rubs, gallops. Unable to do full assessment in triage. I have greeted and performed a rapid initial assessment of this patient. A comprehensive ED assessment and evaluation of the patient, analysis of test results and completion of the medical decision making process will be conducted by additional ED providers. I have specifically instructed the patient or family members with the patient to immediately return to any nursing staff should anything change in the patient's condition or with their chief complaint. TRAVEL OUTSIDE OF THE [place] IN LAST 30 DAYS: No - Related Data Allergies/Adverse Reactions: codeine [Codeine] Allergy (Mild, Verified 09/15/18 11:36) Itching ketorolac tromethamine [From Toradol] Allergy (Unknown, Verified 09/15/18 11:36) Anxiety nalbuphine HCl [From Nubain] Allergy (Unknown, Verified 09/15/18 11:36) Anxiety ondansetron HCl [From Zofran] Allergy (Unknown, Verified 09/15/18 11:36) Itching droperidol [Droperidol] Allergy (Verified 09/15/18 11:36) reports heart racing, doesn't like how it makes her feel Past Medical History - Past Medical History Cardiac Medical History: Reports: Hx Hypercholesterolemia, Hx Hypertension Denies: Hx Coronary Artery Disease, Hx Heart Attack Pulmonary Medical History: Reports: Hx Sleep Apnea Denies: Hx Asthma, Hx Bronchitis, Hx COPD, Hx Pneumonia Neurological Medical History: Reports: Hx Migraine. Denies: Hx Cerebrovascular Accident, Hx Seizures Endocrine Medical History: Reports: Hx Diabetes Mellitus Type 2 Renal/ Medical History: Reports: Hx End Stage Renal Disease, Hx Renal Insufficiency. Denies: Hx Peritoneal Dialysis GI Medical History: Reports: Hx Gastroesophageal Reflux Disease, Hx Irritable Bowel Musculoskeltal Medical History: Reports Hx Arthritis - right knee, Reports Hx Fibromyalgia, Reports Hx Musculoskeletal Deformity, Reports Hx Musculoskeletal Trauma Skin Medical History: Denies Hx Eczema, Denies Hx Psoriasis Psychiatric Medical History: Reports: Hx Depression, Hx Post Traumatic Stress Disorder Past Surgical History: Reports: Hx Appendectomy, Hx Cardiac Catheterization - 3, last one 3 years ago showing no blockages, Hx Cholecystectomy, Hx Hysterectomy, Hx Orthopedic Surgery - RIGHT ANKLE SURGERY 01/2011, shoulder surgery 12/2106, Hx Thyroid Surgery, Hx Vascular Surgery - port a cath R upper c hest. Denies: Hx Pacemaker - Immunizations Hx Diphtheria, Pertussis, Tetanus Vaccination: Yes - 06/17/17 Physical Exam - Vital signs Vitals: Temp Pulse Resp BP Pulse Ox 98.9 F 99 18 114/80 100 11/24/19 23:39 11/24/19 23:39 11/24/19 23:39 11/24/19 23:39 11/24/19 23:39 Course - Vital Signs Vital signs: Temp Pulse Resp BP Pulse Ox 98.9 F 99 18 114/80 100 11/24/19 23:39 11/24/19 23:39 11/24/19 23:39 11/24/19 23:39 11/24/19 23:39 Doctor's Discharge - Discharge Referrals: JAYLIN LEROY PA-C [Primary Care Provider] - Follow up as needed
--- NOTE | 2019-11-25 01:48 | RADIOLOGY REPORT (SQ) ---
EXAM DESCRIPTION: XR CHEST 2 VIEWS COMPLETED DATE/TME: 11/25/2019 00:19 CLINICAL HISTORY: 54 years, Female, pulled out dialysis catheter COMPARISON: 05/11/2018 chest NUMBER OF VIEWS: 2 TECHNIQUE: 2 view chest LIMITATIONS: None. FINDINGS: Heart size normal. Osteopenia. Minimal scarring left lung base. [id number] catheter in place. Lungs otherwise clear. No pneumothorax IMPRESSION: No acute cardiopulmonary process copyright 2010 [employer] All Rights Reserved
[2019-11-25] MEDS ORDERED: DIPHENHYDRAMINE HCL 50 MG/ML VIAL IV ONE (06:16)
[2019-11-25] MEDS ORDERED: METOCLOPRAMIDE HCL INJ/PF 10 MG/2 ML SDV IV ONE (06:16)
--- NOTE | 2019-11-25 07:13 | ER Document Report ---
ED General - General Chief Complaint: Other Stated Complaint: PORT PULLED OUT Time Seen by Provider: 11/25/19 00:10 Primary Care Provider: JAYLIN LEROY PA-C [Primary Care Provider] - Follow up as needed Mode of Arrival: Wheelchair TRAVEL OUTSIDE OF THE [place] IN LAST 30 DAYS: No - HPI Notes: 4-year-old female history of hypertension, diabetes, migraines, end-stage renal disease on dialysis M/W/F last dialysis completed without complication 11/24/2019 presents with dialysis catheter being pulled out. Patient says her 21-year-old autistic daughter pulled out her left chest catheter just prior to arrival. Patient immediately put pressure on it and it stopped bleeding very quickly. Patient has not had to change dressing since first applied. Patient also complains of diffuse global headache for the past day consistent with her prior migraines. Headache came on gradually and then became worse with the stress of losing her catheter. Patient denies any chest pain, shortness of breath, dizziness, syncope, other trauma, any headache symptoms different from her usual migraines, vomiting, change in vision/speech/gait, weakness/numbness, fever, neck pain or stiffness, anticoagulation, bleeding diatheses, altered mental status - Related Data Allergies/Adverse Reactions: codeine [Codeine] Allergy (Mild, Verified 09/15/18 11:36) Itching ketorolac tromethamine [From Toradol] Allergy (Unknown, Verified 09/15/18 11:36) Anxiety nalbuphine HCl [From Nubain] Allergy (Unknown, Verified 09/15/18 11:36) Anxiety ondansetron HCl [From Zofran] Allergy (Unknown, Verified 09/15/18 11:36) Itching droperidol [Droperidol] Allergy (Verified 09/15/18 11:36) reports heart racing, doesn't like how it makes her feel Past Medical History - General Information source: Patient - Social History Smoking Status: Never Smoker Family History: CAD, CVA, Hypertension - Past Medical History Cardiac Medical History: Reports: Hx Hypercholesterolemia, Hx Hypertension Denies: Hx Coronary Artery Disease, Hx Heart Attack Pulmonary Medical History: Reports: Hx Sleep Apnea Denies: Hx Asthma, Hx Bronchitis, Hx COPD, Hx Pneumonia Neurological Medical History: Reports: Hx Migraine. Denies: Hx Cerebrovascular Accident, Hx Seizures Endocrine Medical History: Reports: Hx Diabetes Mellitus Type 2 Renal/ Medical History: Reports: Hx End Stage Renal Disease, Hx Renal Insufficiency. Denies: Hx Peritoneal Dialysis GI Medical History: Reports: Hx Gastroesophageal Reflux Disease, Hx Irritable Bowel Musculoskeletal Medical History: Reports Hx Arthritis - right knee, Reports Hx Fibromyalgia, Reports Hx Musculoskeletal Deformity, Reports Hx Musculoskeletal Trauma Skin Medical History: Denies Hx Eczema, Denies Hx Psoriasis Psychiatric Medical History: Reports: Hx Depression, Hx Post Traumatic Stress Disorder Past Surgical History: Reports: Hx Appendectomy, Hx Cardiac Catheterization - 3, last one 3 years ago showing no blockages, Hx Cholecystectomy, Hx Hysterectomy, Hx Orthopedic Surgery - RIGHT ANKLE SURGERY 01/2011, shoulder surgery 12/2106, Hx Thyroid Surgery, Hx Vascular Surgery - port a cath R upper chest. Denies: Hx Pacemaker - Immunizations Hx Diphtheria, Pertussis, Tetanus Vaccination: Yes - 06/17/17 Hx Pneumococcal Vaccination: 04/19/17 Review of Systems - Review of Systems Notes: REVIEW OF SYSTEMS: CONSTITUTIONAL : Denies fever, chills, or sweats. EENT: Denies recent cold/sinus symptoms, denies throat pain CARDIOVASCULAR: Denies chest pain, WHIT RESPIRATORY: Denies cough, denies shortness of breath. GASTROINTESTINAL: Denies abdominal pain, nausea/vomiting. GENITOURINARY: Denies difficulty urinating, painful urination. FEMALE GENITOURINARY: Denies abnormal vaginal bleeding, vaginal discharge. MUSCULOSKELETAL: Denies neck pain, back pain. SKIN: Denies rash or skin lesions. HEMATOLOGIC : Denies easy bruising or bleeding. LYMPHATIC: Denies swollen, enlarged glands. NEUROLOGICAL: +headache, denies change in gait. PSYCHIATRIC: Denies anxiety or stress or depression. Physical Exam - Vital signs Vitals: Temp Pulse Resp BP Pulse Ox 98.9 F 99 18 114/80 100 11/24/19 23:39 11/24/19 23:39 11/24/19 23:39 11/24/19 23:39 11/24/19 23:39 - Notes Notes: PHYSICAL EXAMINATION: GENERAL: Well-appearing, well-nourished and in no acute distress. HEAD: Atraumatic, normocephalic. EYES: Pupils equal round and appropriate constriction, sclera anicteric, conjunctiva are normal. ENT: nares patent, moist mucous membranes. NECK: Normal range of motion, supple without lymphadenopathy LUNGS: Breath sounds clear to auscultation bilaterally and equal. No wheezes rales or rhonchi. HEART: Regular rate and rhythm without murmurs CHEST: Left upper chest blood-tinged dressing, no active bleeding, subcentimeter catheter site closed without any discharge or erythema, chest tenderness or edema ABDOMEN: Soft, nontender, no guarding, no masses, no CVAT EXTREMITIES: Normal range of motion, no pitting or edema. No cyanosis. NEUROLOGICAL: Awake, alert, conversing appropriately, moves all extremities spontaneously. 5 out of 5 strength in all extremities, normal sensation in all extremities, cranial nerves II through XII intact bilaterally, [id number] normal bilaterally PSYCH: Normal mood, normal affect. SKIN: Warm, Dry, normal turgor, no rashes Course - Re-evaluation Re-evalutation: 11/25/19 07:11 Patient presents with loss of dialysis catheter. Very minimal blood loss, normal chest x-ray. Patient has right chest port which remains intact. Patient has no emergent need for dialysis and was able to complete it on day of pre sentation, but will need arrangements for access before dialysis Wednesday. I have called [facility] as patient's Dr. Horacio Castorena is associated with their group. Awaiting callback for dispo. Gave patient Reglan and Benadryl for migraine and she feels improved. No red flags for patient's headache symptoms, similar to multiple prior headaches she has been evaluated for previously and is seen by a neurologist and is on subq breakthrough medicine for them but did not have access to that in the ED. 11/25/19 07:28 Discussed patient's care with Dr. Miranda construction equipment overhauler at [facility]. Says patient can go Wednesday morning to vascular access and have new line placed. Has patient's information and will call to set up appointment with her. Patient ready for discharge. - Vital Signs Vital signs: Temp Pulse Resp BP Pulse Ox 98.1 F 86 18 120/67 96 11/25/19 06:51 11/25/19 06:51 11/25/19 06:51 11/25/19 06:51 11/25/19 06:51 Discharge - Discharge Clinical Impression: Problem with dialysis access Qualifiers: Encounter type: initial encounter Qualified Code(s): T82.898A - Other specified complication of vascular prosthetic devices, implants and grafts, initial encounter Headache Qualifiers: Headache type: unspecified Headache chronicity pattern: unspecified pattern Intractability: not intractable Qualified Code(s): R51 - Headache Disposition: HOME, SELF-CARE Additional Instructions: You must go to vascular access on Wednesday to have new line placed. If you do not hear from them call him over the weekend call first thing Wednesday. If you are not able to reach anybody on Wednesday then go to vascular access and tell them that Dr. Miranda told you to go there Wednesday for your access placement. If you have any difficulty you can go to the emergency department at [facility]. Dr. Miranda [facility] [address] [place] [address] Phone - If you should have any worsening symptoms such as worsening headache, vomiting, confusion, weakness or numbness, change in vision there high speaker hardly walk, shortness of breath, dizziness, fainting, or any other worsening or alarming symptoms return to any emergency department immediately. Referrals: JAYLIN LEROY PA-C [Primary Care Provider] - Follow up as needed
[2019-11-25 07:56] VITALS: BP 108/56
== END 2019-11-25 07:56 | disposition home or self-care (01) ==
LOC: ER 23:38
DX: Z49.01 Encounter for fitting and adjustment of extracorporeal dialysis catheter (principal); I12.0 Hypertensive chronic kidney disease with stage 5 chronic kidney disease or end stage renal disease; E11.22 Type 2 diabetes mellitus with diabetic chronic kidney disease; N18.6 End stage renal disease; Z99.2 Dependence on renal dialysis; R51 Headache; Z88.6 Allergy status to analgesic agent; Z88.5 Allergy status to narcotic agent; Z88.8 Allergy status to other drugs, medicaments and biological substances
CPT/HCPCS: 99284; 96374; 96375; 71046; J1200; J2765

== ENCOUNTER 2019-12-03 03:54 | Emergency (ER) | payer MEDICARE, OTHER, MEDICAID ==
[2019-12-03] MEDS ORDERED: PROMETHAZINE HCL INJ 25 MG/1 ML VIAL IV ONE (04:52)
[2019-12-03] MEDS ORDERED: DIPHENHYDRAMINE HCL 50 MG/ML VIAL IV ONE (04:52)
[2019-12-03] MEDS ORDERED: NORMAL SALINE 250 ML IV ONE (04:52)
[2019-12-03] MEDS ORDERED: MORPHINE SULFATE 10 MG/ML INJ IV STA (04:53)
--- NOTE | 2019-12-03 05:16 | ER Document Report ---
Entered by IHSAN KELLY SCRIBE 12/03/19 0451 Acting as scribe for:MANGO GARCIA IV, MD ED Headache - General Chief Complaint: Headache Stated Complaint: HEAD PAIN Time Seen by Provider: 12/03/19 04:41 Primary Care Provider: JAYLIN LEROY PA-C [Primary Care Provider] - Follow up as needed Mode of Arrival: Ambulatory Information source: Patient Notes: This 54 year old female patient with a history of HTN, migraines, and ESRD on HD (MWF) presents to the ED today with complaints of a global headache consistent with her prior migraines that started yesterday. Patient states that the pain resolved and then returned around 0330 this morning. She notes associated nausea and photophobia, but denies vomiting or blurry vision. TRAVEL OUTSIDE OF THE [place] IN LAST 30 DAYS: No - Related Data Allergies/Adverse Reactions: codeine [Codeine] Allergy (Mild, Verified 09/15/18 11:36) Itching ketorolac tromethamine [From Toradol] Allergy (Unknown, Verified 09/15/18 11:36) Anxiety nalbuphine HCl [From Nubain] Allergy (Unknown, Verified 09/15/18 11:36) Anxiety ondansetron HCl [From Zofran] Allergy (Unknown, Verified 09/15/18 11:36) Itching droperidol [Droperidol] Allergy (Verified 09/15/18 11:36) reports heart racing, doesn't like how it makes her feel Past Medical History - General Information source: Patient - Social History Smoking Status: Never Smoker Cigarette use (# per day): No Chew tobacco use (# tins/day): No Smoking Education Provided: No Frequency of alcohol use: None Drug Abuse: None Lives with: Spouse/Significant other Family History: Reviewed & Not Pertinent, CAD, CVA, Hypertension Patient has suicidal ideation: No Patient has homicidal ideation: No - Past Medical History Cardiac Medical History: Reports: Hx Hypercholesterolemia, Hx Hypertension Pulmonary Medical History: Reports: Hx Sleep Apnea Neurological Medical History: Reports: Hx Migraine Endocrine Medical History: Reports: Hx Diabetes Mellitus Type 2 Renal/ Medical History: Reports: Hx End Stage Renal Disease, Hx Renal Insufficiency GI Medical History: Reports: Hx Gastroesophageal Reflux Disease, Hx Irritable Bowel Musculoskeletal Medical History: Reports Hx Arthritis - right knee, Reports Hx Fibromyalgia, Reports Hx Musculoskeletal Deformity, Reports Hx Musculoskeletal Trauma Psychiatric Medical History: Reports: Hx Depression, Hx Post Traumatic Stress Disorder Past Surgical History: Reports: Hx Appendectomy, Hx Cardiac Catheterization - 3, last one 3 years ago showing no blockages, Hx Cholecystectomy, Hx Hysterectomy, Hx Orthopedic Surgery - RIGHT ANKLE SURGERY 01/2011, shoulder surgery 12/2106, Hx Thyroid Surgery, Hx Vascular Surgery - port a cath R upper chest - Immunizations Hx Diphtheria, Pertussis, Tetanus Vaccination: Yes - 06/17/17 Hx Pneumococcal Vaccination: 04/19/17 Review of Systems - Review of Systems Constitutional: No symptoms reported EENT: See HPI. denies: Blurred vision Cardiovascular: No symptoms reported Respiratory: No symptoms reported Gastrointestinal: See HPI, Nausea. denies: Vomiting Genitourinary: No symptoms reported Female Genitourinary: No symptoms reported Musculoskeletal: No symptoms reported Skin: No symptoms reported Hematologic/Lymphatic: No symptoms reported Neurological/Psychological: See HPI, Headaches -: Yes All other systems reviewed and negative Physical Exam - Vital signs Vitals: Temp Pulse Resp BP Pulse Ox 98.0 F 109 H 20 149/91 H 100 12/03/19 04:00 12/03/19 04:00 12/03/19 04:00 12/03/19 04:00 12/03/19 04:00 - General General appearance: Alert In distress: None - HEENT Head: Normocephalic, Atraumatic Eyes: Normal Extraocular movements intact: Yes Pupils: PERRL - Respiratory Respiratory status: No respiratory distress Chest status: Nontender Breath sounds: Normal Chest palpation: Normal - Cardiovascular Rhythm: Regular Heart sounds: Normal auscultation Murmur: No Friction rub: No Gallop: None auscultated - Abdominal Inspection: Normal Distension: No distension Bowel sounds: Normal Tenderness: Nontender - Abdomen soft Organomegaly: No organomegaly - Back Back: Normal, Nontender - Extremities General upper extremity: Normal inspection General lower extremity: Normal inspection - Neurological Neuro grossly intact: Yes Orientation: AAOx4 [place] Coma Scale Eye Opening: Spontaneous [place] Coma Scale Verbal: Oriented [place] Coma Scale Motor: Obeys Commands [place] Coma Scale Total: 15 - Psychological Associated symptoms: Normal affect, Normal mood - Skin Skin Temperature: Warm Skin Moisture: Dry Skin Color: Normal Course - Re-evaluation Re-evalutation: 12/03/19 05:54 Patient's nausea has resolved. Patient's headache is decreased somewhat but she would like to have a little more pain medication before she is discharged. All questions were answered prior to discharge. Emergency signs and symptoms, reasons to return to the emergency department discussed with patient. - Vital Signs Vital signs: Temp Pulse Resp BP Pulse Ox 98.1 F 84 14 135/79 H 96 12/03/19 06:06 12/03/19 06:06 12/03/19 06:06 12/03/19 06:06 12/03/19 06:06 Discharge - Discharge Clinical Impression: Migraine headache Qualifiers: Migraine type: unspecified Status migrainosus presence: with status migrainosus Intractability: not intractable Qualified Code(s): G43.901 - Migraine, unspecified, not intractable, with status migrainosus Condition: Stable Disposition: HOME, SELF-CARE Additional Instructions: Return to the Emergency Department without delay if any worse. HOME CARE INSTRUCTIONS & INFORMATION: Thank you for choosing us for your medical needs. We hope you're satisfied with the care you received. After you leave, you must properly care for your problem and, at the same time, observe its progress. Any condition can change. Some illnesses can change rapidly over hours or days. If your condition worsens, return to the Emergency Department or see your physician promptly. ABOUT YOUR X-RAYS AND EKG'S: If you had an EKG or X-rays taken, they have been read by the Emergency Physician. The X-rays and EKG's will also be read by a Radiologist or Sawmill Relief Worker within 24 hours. If discrepancies are noted, you will be notified by telephone. Please be certain the ED has a correct telephone number & address where you can be reached. Also, realize that some fractures or abnormalities do not show up on initial X-rays. If your symptoms continue, see your physician. ABOUT YOUR LABORATORY TEST: If you had laboratory tests, the results have been reviewed by the Emergency Physician. Some test results (for example cultures) may not be available for several days. You will be contacted if any test result shows you need additional treatment. Please be certain the ED has a correct telephone number and address where you can be reached. ABOUT YOUR MEDICATIONS: You will receive instructions on how to take your medicine on the prescription label you receive. Additional information may be provided by the Pharmacy. If you have questions afterwards, call the ED for clarification or further instructions. Some prescribed medications may cause drowsiness. Do not perform tasks such as driving a car or operating machinery without consulting your Pharmacist. If you feel you need a refill of pain medication, your condition will need re-evaluation. Please do not call for a refill of any medication. ABOUT YOUR SIGNATURE: Signature of this document acknowledges to followin. Understanding that you received emergency treatment and that you may be released before al medical problems are known or treated. Please be certain the ED has a correct phone number & address where you can be reached. 2. Acknowledgement that you will arrange for follow-up care as recommended. 3. Authorization for the Emergency Physician to provide information to your follow-up Physician in order to maximize your care. AT ANY TIME, IF YOUR SYMPTOMS CHANGE SIGNIFICANTLY OR WORSEN OR YOU DEVELOP NEW SYMPTOMS, RETURN TO THE EMERGENCY DEPARTMENT IMMEDIATELY FOR RE-EVALUATION. OUR GOAL IS TO PROVIDE EXCELLENT MEDICAL CARE! WE HOPE THAT WE HAVE MET YOUR EXPECTATIONS DURING YOUR EMERGENCY DEPARTMENT VISIT AND THAT YOU FEEL YOU HAVE RECEIVED EXCELLENT CARE! Migraine Headache The physician feels that your symptoms are due to a migraine attack. Migraines are caused by changes in the blood vessels of the head. Arteries go into spasm, often causing warning symptoms that a headache may begin soon. As the spasm goes away, the vessels dilate and throb, causing the pounding pain of a migraine headache. Migraines often cause nausea and vomiting. The treatment of headaches varies with severity and cause of pain. Not all headaches need pain shots -- in fact, there is evidence that using narcotics for headaches may make them worse in the long run. The physician will determine the therapy that's in your best interest for this particular headache. Medications are available that may prevent migraines, or stop them as they first occur. If one medication is not helpful, try another. If migraines are frequent, be patient -- follow the doctor's recommendations. Call the physician if you are worsening, or if new symptoms arise. Prescriptions: Butalb/Acetaminophen/Caffeine [Fioricet (50-325-40 mg) Tablet] 1 tab PO Q4HP PRN #10 tab PRN Reason: Referrals: JAYLIN LEROY PA-C [Primary Care Provider] - Follow up as needed I personally performed the services described in the documentation, reviewed and edited the documentation which was dictated to the scribe in my presence, and it accurately records my words and actions.
[2019-12-03] MEDS ORDERED: HYDROMORPHONE HCL INJ/PF 2 MG/ML AMPULE IV ONE (05:53)
[2019-12-03 06:07] VITALS: BP 135/79
== END 2019-12-03 06:23 | disposition home or self-care (01) ==
LOC: ER 03:54
DX: G43.901 Migraine, unspecified, not intractable, with status migrainosus (principal); R11.0 Nausea; H53.149 Visual discomfort, unspecified; I12.0 Hypertensive chronic kidney disease with stage 5 chronic kidney disease or end stage renal disease; E11.22 Type 2 diabetes mellitus with diabetic chronic kidney disease; N18.6 End stage renal disease; Z99.2 Dependence on renal dialysis; Z88.8 Allergy status to other drugs, medicaments and biological substances
CPT/HCPCS: 36591; 99284; 96361; 96374; 96375; J1200; J2270; J1170; J2550; J7050; J1642

== ENCOUNTER 2019-12-10 12:18 | Emergency (ER) | payer MEDICARE, OTHER, MEDICAID ==
[2019-12-10 12:39] VITALS: BP 139/80
[2019-12-10] MEDS ORDERED: ACETAMINOPHEN 325 MG TABLET PO ONE (12:42)
[2019-12-10] MEDS ORDERED: PROMETHAZINE HCL 25 MG TABLET PO ONE (12:42)
--- NOTE | 2019-12-10 12:45 | ER Document Report ---
ED Medical Screen (RME) - General Chief Complaint: Chest Pain Stated Complaint: CHEST PAIN Time Seen by Provider: 12/10/19 12:40 Primary Care Provider: JAYLIN LEROY PA-C [Primary Care Provider] - Follow up as needed Mode of Arrival: Wheelchair Information source: Patient Notes: 54-year-old female patient presents emergency department chief complaint of chest pain, shortness of breath and nausea. Patient reports pain started this morning. She states the pain feels like a heaviness in the center of her chest, pain radiates up into her neck, jaw and left arm. She reports associated shortness of breath, nausea and she states she got slightly diaphoretic earlier. She took 2 sublingual nitroglycerin without relief. She does report a severe headache from the nitroglycerin. Patient states she is on a kidney transplant list, states she had a negative cardiac cath a few months ago. She does have a history of an [place] without stent placement. She sees cardiology in [place]. She is alert, oriented, no acute distress noted. Lung sounds clear and equal bilaterally. EKG reviewed, shows a left ventricular hypertrophy which is unchanged from previous EKG. No acute STEMI noted. Patient is very anxious and tearful. I have greeted and performed a rapid initial assessment of this patient. A comprehensive ED assessment and evaluation of the patient, analysis of test results and completion of the medical decision making process will be conducted by additional ED providers. I have specifically instructed the patient or family members with the patient to immediately return to any nursing staff should anything change in the patient's condition or with their chief complaint. TRAVEL OUTSIDE OF THE [place] IN LAST 30 DAYS: No - Related Data Allergies/Adverse Reactions: codeine [Codeine] Allergy (Mild, Verified 09/15/18 11:36) Itching ketorolac tromethamine [From Toradol] Allergy (Unknown, Verified 09/15/18 11:36) Anxiety nalbuphine HCl [From Nubain] Allergy (Unknown, Verified 09/15/18 11:36) Anxiety ondansetron HCl [From Zofran] Allergy (Unknown, Verified 09/15/18 11:36) Itching droperidol [Droperidol] Allergy (Verified 09/15/18 11:36) reports heart racing, doesn't like how it makes her feel Past Medical History - Past Medical History Cardiac Medical History: Reports: Hx Hypercholesterolemia, Hx Hypertension Denies: Hx Coronary Artery Disease, Hx Heart Attack Pulmonary Medical History: Reports: Hx Sleep Apnea Denies: Hx Asthma, Hx Bronchitis, Hx COPD, Hx Pneumonia Neurological Medical History: Reports: Hx Migraine. Denies: Hx Cerebrovascular Accident, Hx Seizures Endocrine Medical History: Reports: Hx Diabetes Mellitus Type 2 Renal/ Medical History: Reports: Hx End Stage Renal Disease, Hx Renal Insufficiency. Denies: Hx Peritoneal Dialysis GI Medical History: Reports: Hx Gastroesophageal Reflux Disease, Hx Irritable Bowel Musculoskeltal Medical History: Reports Hx Arthritis - right knee, Reports Hx Fibromyalgia, Reports Hx Musculoskeletal Deformity, Reports Hx Musculoskeletal Trauma Skin Medical History: Denies Hx Eczema, Denies Hx Psoriasis Psychiatric Medical History: Reports: Hx Depression, Hx Post Traumatic Stress Disorder Past Surgical History: Reports: Hx Appendectomy, Hx Cardiac Catheterization - 3, last one 3 years ago showing no blockages, Hx Cholecystectomy, Hx Hysterectomy, Hx Orthopedic Surgery - RIGHT ANKLE SURGERY 01/2011, shoulder s urgery 12/2106, Hx Thyroid Surgery, Hx Vascular Surgery - port a cath R upper chest. Denies: Hx Pacemaker - Immunizations Hx Diphtheria, Pertussis, Tetanus Vaccination: Yes - 06/17/17 Physical Exam - Vital signs Vitals: Temp Pulse Resp BP Pulse Ox 99.6 F 95 20 139/80 H 100 12/10/19 12:37 12/10/19 12:37 12/10/19 12:37 12/10/19 12:37 12/10/19 12:37 Course - Vital Signs Vital signs: Temp Pulse Resp BP Pulse Ox 99.6 F 95 20 139/80 H 100 12/10/19 12:37 12/10/19 12:37 12/10/19 12:37 12/10/19 12:37 12/10/19 12:37 Doctor's Discharge - Discharge Referrals: JAYLIN LEROY PA-C [Primary Care Provider] - Follow up as needed
--- NOTE | 2019-12-10 13:48 | RADIOLOGY REPORT (SQ) ---
EXAM DESCRIPTION: CHEST SINGLE VIEW IMAGES COMPLETED DATE/TIME: 12/10/2019 1:15 pm REASON FOR STUDY: chest pain COMPARISON: 11/25/2019 FINDINGS: One-view chest is stable, negative. Single PA view shows port in place but clear lungs an d stable normal cardiomediastinal silhouette. No pneumothorax. TECHNICAL DOCUMENTATION: JOB ID: [id number] Reading location - IP/workstation name: [email or web address]
--- NOTE | 2019-12-10 20:23 | EKG REPORT ---
SEVERITY:- ABNORMAL ECG - SINUS RHYTHM : Confirmed by: Darwin Curiel 10-Dec-2019 20:22:42
== END 2019-12-10 14:04 | disposition left against medical advice (07) ==
LOC: ER 12:18
DX: R07.9 Chest pain, unspecified (principal); R06.02 Shortness of breath; R11.0 Nausea; R61 Generalized hyperhidrosis; I11.9 Hypertensive heart disease without heart failure; E11.9 Type 2 diabetes mellitus without complications; I25.2 Old myocardial infarction; Z88.6 Allergy status to analgesic agent; Z88.5 Allergy status to narcotic agent; Z53.20 Procedure and treatment not carried out because of patient's decision for unspecified reasons; Z88.8 Allergy status to other drugs, medicaments and biological substances
CPT/HCPCS: 93005; 99281; 71045; 93010; A9270 ×2

== ENCOUNTER 2019-12-11 07:40 | Emergency (ER) | payer MEDICARE, OTHER, MEDICAID ==
--- NOTE | 2019-12-11 08:56 | EKG REPORT ---
SEVERITY:- OTHERWISE NORMAL ECG - SINUS TACHYCARDIA : Confirmed by: Abigail Mandel MD 11-Dec-2019 08:55:25
[2019-12-11 08:58] LABS: APPEARANCE,URINE CLEAR; BILIRUBIN,URINE NEGATIVE (NEGATIVE); COLOR,URINE YELLOW; GLUCOSE, URINE NEGATIVE (NEGATIVE); KETONES,URINE NEGATIVE (NEGATIVE); LEUKOCYTE ESTERASE,URINE TRACE (NEGATIVE); NITRITE,URINE NEGATIVE (NEGATIVE); PROTEIN,URINE 100 mg/dL (NEGATIVE); URINE SPECIFIC GRAVITY 1.013; UROBILINOGEN,URINE NEGATIVE mg/dL (<2.0)
--- NOTE | 2019-12-11 09:20 | RADIOLOGY REPORT (SQ) ---
EXAM DESCRIPTION: CHEST SINGLE VIEW IMAGES COMPLETED DATE/TIME: 12/11/2019 9:09 am REASON FOR STUDY: cp COMPARISON: 12/10/2019 EXAM PARAMETERS: NUMBER OF VIEWS: One view. TECHNIQUE: Single frontal radiographic view of the chest acquired. RADIATION DOSE: NA LIMITATIONS: None. FINDINGS: LUNGS AND PLEURA: No opacities, masses or pneumothorax. No pleural effusion. MEDIASTINUM AND HILAR STRUCTURES: No masses. Contour normal. HEART AND VASCULAR STRUCTURES: Heart normal in size. Normal vasculature. BONES: No acute findings. Partially visualized left shoulder arthroplasty. HARDWARE: Right internal jugular based chest port with catheter tip at right atrium. OTHER: No other significant finding. IMPRESSION: No evidence of acute cardiopulmonary process. TECHNICAL DOCUMENTATION: JOB ID: [id number] 2010 [employer]- All Rights Reserved Reading location - IP/workstation name: [email or web address]
[2019-12-11] MEDS ORDERED: DIPHENHYDRAMINE HCL 50 MG/ML VIAL IV ONE ×3 (09:27→21:32)
[2019-12-11] MEDS ORDERED: MORPHINE SULFATE 10 MG/ML INJ IV ONE ×2 (09:27→16:01)
[2019-12-11 11:00] LABS: ABSOLUTE EOSINOPHILS # (AUTO) 0.1 10^3/uL (0.0-0.6); ABSOLUTE LYMPHOCYTES (AUTO) 1.4 10^3/uL (0.5-4.7); ABSOLUTE MONOCYTES (AUTO) 0.4 10^3/uL (0.1-1.4); ABSOLUTE NEUT (AUTO) 2.5 10^3/uL (1.7-8.2); BASOPHILS % (AUTO) 0.3 % (0-2); EOSINOPHILS % (AUTO) 2.5 % (0-6); HEMATOCRIT 24.6 % (36.0-47.0); HEMOGLOBIN 8.3 g/dL (12.0-15.5); LYMPHOCYTES % (AUTO) 31.4 % (13-45); MEAN CORPUSCULAR HEMOGLOBIN 31.4 pg (27.0-33.4); MEAN CORPUSCULAR HGB CONC 33.8 g/dL (32.0-36.0); MEAN CORPUSCULAR VOLUME 93 fl (80-97); MONOCYTES % (AUTO) 8.8 % (3-13); PLATELET COUNT 146 10^3/uL (150-450); RED BLOOD COUNT 2.65 10^6/uL (3.72-5.28); RED CELL DISTRIBUTION WIDTH 16.8 % (11.5-14.0); TOTAL CELLS COUNTED % (AUTO) 100 %; WHITE BLOOD COUNT 4.5 10^3/uL (4.0-10.5)
[2019-12-11 11:19] LABS: ALBUMIN 3.2 g/dL (3.5-5.0); ALKALINE PHOSPHATASE 139 U/L (38-126); ANION GAP 5 (5-19); ASPARTATE AMINO TRANSFERASE 16 U/L (14-36); BILIRUBIN,DIRECT 0.5 mg/dL (0.0-0.4); BILIRUBIN,TOTAL 0.6 mg/dL (0.2-1.3); BLOOD UREA NITROGEN 21 mg/dL (7-20); CALCIUM 8.4 mg/dL (8.4-10.2); CARBON DIOXIDE 23 mmol/L (22-30); CHLORIDE 113 mmol/L (98-107); CREATINE KINASE 44 U/L (30-135); GLUCOSE 84 mg/dL (75-110); POTASSIUM 3.5 mmol/L (3.6-5.0); TOTAL PROTEIN 6.6 g/dL (6.3-8.2)
[2019-12-11 11:30] LABS: CREATINE KINASE MB 0.28 ng/mL (<4.55)
[2019-12-11 11:32] LABS: TROPONIN I < 0.012 ng/mL
[2019-12-11] MEDS ORDERED: PROMETHAZINE HCL INJ 25 MG/1 ML VIAL IV ONE (13:05)
--- NOTE | 2019-12-11 16:48 | ER Document Report ---
Entered by BETHEL ONEIL SCRIBE 12/11/19 1006 Acting as scribe for:AUGIE GARCIA MD ED Cardiac - General Chief Complaint: Chest Pain Stated Complaint: CHEST PAIN Time Seen by Provider: 12/11/19 09:03 Primary Care Provider: JAYLIN LEROY PA-C [Primary Care Provider] - Follow up as needed Information source: Patient Notes: This 54 year old female patient presents to the emergency department today with complaints of a headache and chest pain since yesterday. Patient states her chest pain began yesterday and she visited the ED, but left before being seen by a Physician. Patient reports Tylenol does not relieve her headache and took her prescribed fioricet this morning without relief. Patient reports nausea and denies vomiting or a cough. Patient reports a [place] x2-3 years ago without stent placement and a negative cardiac cath x4 months ago to be placed on a transplant list. Patient reports history of ESRD and is a hemodialysis patient MWF, with her last appointment being Wednesday (x2 days ago) due to not feeling well Wednesday. Patient arrived today by EMS from her Wednesday appointment without receiving dialysis. Patient reports taking nitroglycerin today and x3 yesterday. TRAVEL OUTSIDE OF THE [place] IN LAST 30 DAYS: No - Related Data Allergies/Adverse Reactions: codeine [Codeine] Allergy (Mild, Verified 09/15/18 11:36) Itching ketorolac tromethamine [From Toradol] Allergy (Unknown, Verified 09/15/18 11:36) Anxiety nalbuphine HCl [From Nubain] Allergy (Unknown, Verified 09/15/18 11:36) Anxiety ondansetron HCl [From Zofran] Allergy (Unknown, Verified 09/15/18 11:36) Itching droperidol [Droperidol] Allergy (Verified 09/15/18 11:36) reports heart racing, doesn't like how it makes her feel Home Medications: Abilify, Metoprolol, Amlodipine, Aspirin, Gabapentin, Nitro PRN, Cymbalta, Lunesta, Diazepan, Lasix Past Medical History - General Information source: Patient - Social History Smoking Status: Never Smoker Cigarette use (# per day): No Lives with: Family Family History: Reviewed & Not Pertinent, CAD, CVA, Hypertension - Past Medical History Cardiac Medical History: Reports: Hx Heart Attack - w/o stent, Hx Hypercholeste rolemia, Hx Hypertension Pulmonary Medical History: Reports: Hx Sleep Apnea Neurological Medical History: Reports: Hx Migraine Endocrine Medical History: Reports: Hx Diabetes Mellitus Type 2 Renal/ Medical History: Reports: Hx End Stage Renal Disease, Hx Hemodialysis - MWF, Hx Renal Insufficiency GI Medical History: Reports: Hx Gastroesophageal Reflux Disease, Hx Irritable Bowel Musculoskeletal Medical History: Reports Hx Arthritis - right knee, Reports Hx Fibromyalgia, Reports Hx Musculoskeletal Deformity, Reports Hx Musculoskeletal Trauma Psychiatric Medical History: Reports: Hx Depression, Hx Post Traumatic Stress Disorder Past Surgical History: Reports: Hx Appendectomy, Hx Cardiac Catheterization - 3, Hx Cholecystectomy, Hx Hysterectomy, Hx Orthopedic Surgery - RIGHT ANKLE SURGERY 01/2011, shoulder surgery 12/2106, Hx Thyroid Surgery, Hx Vascular Surgery - port a cath R upper chest - Immunizations Hx Diphtheria, Pertussis, Tetanus Vaccination: Yes - 06/17/17 Hx Pneumococcal Vaccination: 04/19/17 Review of Systems - Review of Systems Constitutional: No symptoms reported EENT: No symptoms reported Cardiovascular: See HPI, Chest pain Respiratory: See HPI. denies: Cough Gastrointestinal: See HPI, Nausea. denies: Vomiting Genitourinary: No symptoms reported Female Genitourinary: No symptoms reported Musculoskeletal: No symptoms reported Skin: No symptoms reported Hematologic/Lymphatic: No symptoms reported Neurological/Psychological: See HPI, Headaches -: Yes All other systems reviewed and negative Physical Exam - Vital signs Vitals: Pulse Resp BP Pulse Ox 115 H 16 158/106 H 100 12/11/19 08:12 12/11/19 08:12 12/11/19 08:12 12/11/19 08:12 - General General appearance: Appears well, Alert - HEENT Head: Normocephalic, Atraumatic Eyes: Normal Pupils: PERRL - Respiratory Respiratory status: No respiratory distress Breath sounds: Normal Notes: Tenderness with palpation to the anterior chest wall. Port access in anterior right upper chest. - Cardiovascular Rhythm: Regular Heart sounds: Normal auscultation, S1 appreciated, S2 appreciated Murmur: No - Abdominal Inspection: Obese Distension: No distension Bowel sounds: Normal Tenderness: Nontender - Extremities General upper extremity: Normal inspection. No: Edema General lower extremity: Normal inspection. No: Edema - Neurological Neuro grossly intact: Yes Cognition: Normal Orientation: AAOx4 Speech: Normal - Psychological Associated symptoms: Normal affect, Normal mood - Skin Skin Temperature: Warm Skin Moisture: Dry Skin Color: Normal Course - Re-evaluation Re-evalutation: 12/11/19 15:27 Patient continues to complain of migraine headache and feeling stressed. Chest pain is much better at this time. 12/11/19 16:02 Patient is feeling stressed and is asking to be admitted to the hospital for her many complaints of not feeling well, nausea, stress and migraine headache, and chest wall pain, and distress over hemodialysis that does not make her feel well this draining her strength. Patient denies suicidal or homicidal ideation and to my knowledge is not on any kind antidepressant medications. 12/11/19 16:22 Due to patient's multiple somatic complaints about her abdomen which was unknown to me that she recently had surgery to remove a retained body 3 weeks ago from peritoneal dialysis. I ordered a KUB flat and upright abdomen to determine that there was no acute abnormality about her abdomen other than having recent surgery. Lipase is also pending at this time. Patient is troponin has been negative x2 and she continues to have reproducible chest wall pain at the right sternal junction. Patient is aware that I have requested mental health evaluation as part of her ED work-up today. 12/11/19 16:35 Exam patient's abdomen that appears soft there are some increased normoactive bowel sounds present there is no rebound and no significant guarding patient has portal sites that are somewhat firm in its healing nature but no wound sites appear to be infected. And no open wounds are present these portal sites are well-healed at this time. I explained the patient I did order plain film x-rays on her to determine her degree of constipation that she says she has not had a bowel movement in in about 4 to 5 days. - Vital Signs Vital signs: Temp Pulse Resp BP Pulse Ox 98.8 F 115 H 16 147/98 H 100 12/11/19 08:25 12/11/19 08:12 12/11/19 13:01 12/11/19 13:00 12/11/19 13:01 12/11/19 15:27 Patient vital signs currently shows blood pressure 147/92 pulse oximetry 100% and pulse is 91. - Laboratory Result Diagrams: 12/11/19 10:41 12/11/19 10:41 Laboratory results interpreted by me: 12/11/19 12/11/19 12/11/19 07:57 10:41 10:41 RBC 2.65 L Hgb 8.3 L Hct 24.6 L RDW 16.8 H Plt Count 146 L Potassium 3.5 L Chloride 113 H BUN 21 H Creatinine 3.69 H Est GFR ( Amer) 15 L Est GFR (MDRD) Non-Af 13 L Direct Bilirubin 0.5 H Alkaline Phosphatase 139 H Albumin 3.2 L Urine Protein 100 H Ur Leukocyte Esterase TRACE H 12/11/19 15:29 Patient is a chronic renal failure patient or the elevated BUN/creatinine 21 3.69 patient also still urinates and urinalysis does not show any acute process in terms of infection leukocyte esterase is trace but no other markers to suggest that there is any UTI. Patient has anemia consistent with chronic kidney disease. - Diagnostic Test Radiology reviewed: Image reviewed, Reports reviewed Radiology results interpreted by me: 12/11/19 15:30 Chest x-ray shows no overt failure otherwise a normal-appearing chest x-ray. - EKG Interpretation by Me Additional EKG results interpreted by me: 12/11/19 15:30 Twelve-lead EKG initially shows a sinus tachycardia rate of [address]-T wave changes. No STEMI - Transfer of Care Notes: 12/11/19 16:24 Patient care has been transferred over to Dr. Up, as there are pending results at this time including a lipase, KUB flat and upright abdomen, and a mental health consult. Discharge - Discharge Clinical Impression: Chest pain, Chronic kidney disease, Chronic kidney disease, stage V, Migraine headache, Renal failure, chronic, Nausea, Fibromyalgia, Diabetes mellitus type 2 in nonobese, Constipation Condition: Stable Disposition: HOME, SELF-CARE Referrals: JAYLIN LEROY PA-C [Primary Care Provider] - Follow up as needed I personally performed the services described in the documentation, reviewed and edited the documentation which was dictated to the scribe in my presence, and it accurately records my words and actions.
--- NOTE | 2019-12-11 17:07 | RADIOLOGY REPORT (SQ) ---
EXAM DESCRIPTION: ABDOMEN 2 VIEWS IMAGES COMPLETED DATE/TIME: 12/11/2019 4:55 pm REASON FOR STUDY: nausea/recent abdominal retainedtube removal. COMPARISON: 10/11/2017 NUMBER OF VIEWS: Two views. TECHNIQUE: Supine and erect/decubitus radiographic images of the abdomen acquired. LIMITATIONS: None. FINDINGS: FREE AIR: None. No abnormal gas collections. LUNG BASES: Clear. BOWEL GAS PATTERN: Nonobstructive pattern. No dilated loops or air fluid levels. CALCIFICATIONS: No suspicious calcifications. SOFT TISSUES: No gross mass or suggestion of organomegaly. HARDWARE: None in the abdomen. BONES: No acute fracture. No worrisome bone lesions. OTHER: No other significant finding. IMPRESSION: NO RADIOGRAPHIC EVIDENCE FOR ACUTE ABDOMINAL DISEASE. TECHNICAL DOCUMENTATION: JOB ID: [id number] 2010 [employer]- All Rights Reserved Reading location - IP/workstation name: [email or web address]
[2019-12-11] MEDS ORDERED: PROMETHAZINE HCL 25 MG TABLET PO ONE (20:52)
[2019-12-11] MEDS ORDERED: PROCHLORPERAZINE EDISYLATE INJ 10 MG/2 ML VIAL IV ONE (21:32)
[2019-12-11] MEDS ORDERED: DEXAMETHASONE SOD PHOS INJ 10 MG/1 ML VIAL IV ONE ×2 (21:32→22:30)
[2019-12-11] MEDS ORDERED: DEXAMETHASONE SOD PHOSPHATE INJ 4 MG/1 ML VIAL IV ONE (21:45)
[2019-12-11] MEDS ORDERED: LIDOCAINE 5% (700 MG) TRANSDERMAL ADH..PATCH TP ONE (22:24)
[2019-12-11 22:54] VITALS: BP 156/96
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
== END 2019-12-11 22:55 | disposition home or self-care (01) ==
LOC: ER 07:40
DX: R07.1 Chest pain on breathing (principal); M79.7 Fibromyalgia; G43.011 Migraine without aura, intractable, with status migrainosus; K59.01 Slow transit constipation; I12.0 Hypertensive chronic kidney disease with stage 5 chronic kidney disease or end stage renal disease; E11.22 Type 2 diabetes mellitus with diabetic chronic kidney disease; N18.6 End stage renal disease; Z99.2 Dependence on renal dialysis; F33.1 Major depressive disorder, recurrent, moderate; Z88.8 Allergy status to other drugs, medicaments and biological substances; Z79.899 Other long term (current) drug therapy; I25.2 Old myocardial infarction
CPT/HCPCS: 93005; 96376; 99285; 96374; 96375; 36415; 82553; 82550; 83690; 85025; 80053; 81001; 84484; 74019; 71045; 93010; J1100; J1200; J2270; A9270 ×2; J0780; J2550; J1642

== ENCOUNTER 2019-12-26 15:50 | Emergency (ER) | payer MEDICARE, OTHER, MEDICAID ==
[2019-12-26] MEDS ORDERED: KETAMINE HCL INJ 500 MG/10 ML VIAL IV ONE (19:04)
[2019-12-26 19:30] LABS: ABSOLUTE EOSINOPHILS # (AUTO) 0.1 10^3/uL (0.0-0.6); ABSOLUTE LYMPHOCYTES (AUTO) 1.4 10^3/uL (0.5-4.7); ABSOLUTE MONOCYTES (AUTO) 0.4 10^3/uL (0.1-1.4); ABSOLUTE NEUT (AUTO) 2.1 10^3/uL (1.7-8.2); BASOPHILS % (AUTO) 0.3 % (0-2); EOSINOPHILS % (AUTO) 3.4 % (0-6); HEMATOCRIT 23.8 % (36.0-47.0); HEMOGLOBIN 8.4 g/dL (12.0-15.5); LYMPHOCYTES % (AUTO) 34.2 % (13-45); MEAN CORPUSCULAR HEMOGLOBIN 34.3 pg (27.0-33.4); MEAN CORPUSCULAR HGB CONC 35.1 g/dL (32.0-36.0); MONOCYTES % (AUTO) 10.9 % (3-13); PLATELET COUNT 189 10^3/uL (150-450); RED BLOOD COUNT 2.43 10^6/uL (3.72-5.28); RED CELL DISTRIBUTION WIDTH 17.8 % (11.5-14.0); SEGMENTED NEUTROPHILS % (AUTO) 51.2 % (42-78); TOTAL CELLS COUNTED % (AUTO) 100 %; WHITE BLOOD COUNT 4.1 10^3/uL (4.0-10.5)
[2019-12-26 19:47] LABS: INTERNATIONAL RATION (INR) 0.82; PROTHROMBIN TIME 11.5 SEC (11.4-15.4)
[2019-12-26 19:48] LABS: PARTIAL THROMBOPLASTIN TIME 50.9 SEC (23.5-35.8)
--- NOTE | 2019-12-26 19:55 | RADIOLOGY REPORT (SQ) ---
EXAM DESCRIPTION: CT HEAD WITHOUT IMAGES COMPLETED DATE/TIME: 12/26/2019 7:46 pm REASON FOR STUDY: trauma COMPARISON: 02/13/2017 TECHNIQUE: Axial images acquired through the brain without intravenous contrast. Images reviewed wi th bone, brain and subdural windows. Additional sagittal and coronal reconstructions were generated. Images stored on PACS. All CT scanners at this facility use dose modulation, iterative reconstruction, and/or weight based d osing when appropriate to reduce radiation dose to as low as reasonably achievable (ALARA). [facility]: Dose Right [facility]: CareDose [facility]: Dose Right [facility]: Teradose 4D [facility]: [employer] RADIATION DOSE: mGy. LIMITATIONS: None. FINDINGS: VENTRICLES: Normal size and contour. CEREBRUM: No masses. No hemorrhage. No midline shift. No evidence for acute infarction. Normal gra y/white matter differentiation. No areas of low density in the white matter. CEREBELLUM: No masses. No hemorrhage. No alteration of density. No evidence for acute infarction. EXTRAAXIAL SPACES: No fluid collections. No masses. ORBITS AND GLOBE: No intra- or extraconal masses. Normal contour of globe without masses. CALVARIUM: No fracture. PARANASAL SINUSES: No fluid or mucosal thickening. SOFT TISSUES: No mass or hematoma. OTHER: No other significant finding. IMPRESSION: NORMAL BRAIN CT WITHOUT CONTRAST. EVIDENCE OF ACUTE STROKE: NO. COMMENT: Quality ID # [id number]: Final reports with documentation of one or more dose reduction techniques (e.g., Automated exposure control, adjustment of the mA and/or kV according to patient size, use of iterative reconstruction technique) TECHNICAL DOCUMENTATION: JOB ID: [id number] 2010 [employer] All Rights Reserved Reading location - IP/workstation name: [email or web address]
[2019-12-26 20:04] LABS: MEAN CORPUSCULAR VOLUME 98 fl (80-97)
[2019-12-26 20:10] LABS: ALBUMIN 3.5 g/dL (3.5-5.0); ALKALINE PHOSPHATASE 169 U/L (38-126); ANION GAP 7 (5-19); ASPARTATE AMINO TRANSFERASE 20 U/L (14-36); BILIRUBIN,DIRECT 0.5 mg/dL (0.0-0.4); BILIRUBIN,TOTAL 0.5 mg/dL (0.2-1.3); BLOOD UREA NITROGEN 20 mg/dL (7-20); CALCIUM 8.4 mg/dL (8.4-10.2); CARBON DIOXIDE 28 mmol/L (22-30); CHLORIDE 105 mmol/L (98-107); CREATINE KINASE 54 U/L (30-135); GLUCOSE 123 mg/dL (75-110); POTASSIUM 3.6 mmol/L (3.6-5.0); TOTAL PROTEIN 6.5 g/dL (6.3-8.2)
[2019-12-26] MEDS ORDERED: PROMETHAZINE HCL 25 MG SUPP.RECT PR ONE (20:10)
--- NOTE | 2019-12-26 20:18 | RADIOLOGY REPORT (SQ) ---
INDICATION: trauma. Neck pain COMPARISON: None CORRELATION: None TECHNIQUE: Noncontrast spiral axial CT images were obtained through the cervical spine with multiplanar reconstructions. This exam was performed according to our departmental dose-optimization program, which includes automated exposure control, adjustment of the mA and/or kV according to patient size and/or use of iterative reconstruction techniques. FINDINGS: No acute displaced fracture is identified of the cervical spine. Straightening/reversal the normal cervical lordosis. Vertebral body heights are well-maintained. The uncovertebral joints and facets are within normal limits, for age. Right IJ catheter. The pharynx appears symmetric. Thyroid demonstrates postsurgical change from partial thyroidectomy. Please correlate with history. The lung apices are grossly clear. IMPRESSION: No acute bony injury is seen to the cervical spine. Artifact from the patient's shoulders. Imaging is degraded by patient motion, with resultant artifact. The best possible images were obtained.
--- NOTE | 2019-12-26 20:21 | RADIOLOGY REPORT (SQ) ---
CLINICAL INDICATION: trauma. Pain. TECHNIQUE: Single view(s) obtained of the pelvis. COMPARISON: None. FINDINGS: No acute displaced fracture is identified. Alignment appears anatomic. Joint spaces are within normal limits for age. Moderate hard stool within the colon. IMPRESSION: No acute displaced fracture is identified.
--- NOTE | 2019-12-26 20:25 | RADIOLOGY REPORT (SQ) ---
EXAM DESCRIPTION: X-RAY CHEST- One View CLINICAL HISTORY: Trauma COMPARISON: December 11, 2019 TECHNIQUE: Single view of the chest. FINDINGS: There are overlying EKG leads. Right chest wall port terminates in the expected location of the cavoatrial junction. There are low lung volumes with compressive changes. Minimal patchy opacities overlie the left lung base. The pulmonary vascularity is normal. The cardiomediastinal silhouette is normal in size. Left shoulder arthroplasty is partially included in the [id number]. Surgical clips overlie the right lower neck soft tissues. IMPRESSION: Low lung volumes with compressive changes. Additional patchy opacities overlying the left lung base are nonspecific. Consider attention on follow-up.
[2019-12-26] MEDS ORDERED: LORAZEPAM INJ 2 MG/1 ML VIAL IV ONE (20:39)
--- NOTE | 2019-12-26 20:52 | ER Document Report ---
ED General - General Chief Complaint: Fall Stated Complaint: HIT HEAD Primary Care Provider: JAYLIN LEROY PA-C [Primary Care Provider] - Follow up as needed SAMMI COBB MD [ACTIVE STAFF] - Follow up as needed Notes: 54-year-old female history of hypertension hyperlipidemia diabetes ESRD on hemodialysis (Wednesday via right lower arm fistula, last HD yesterday), chronic back pain and pain management recently discharged from pain management presents with mechanical fall out of bed this morning with worsening lower back pain, and lower extremity weakness since fall. Patient has been able to walk since fall and is ambulated in the ED. Patient hit back of head without any LOC and currently has occipital headache. Patient denies any focal weakness or numbness, saddle anesthesia, urinary retention, bowel incontinence, fever, drug use, change in vision or speech, chest pain, shortness of breath, abdominal pain, upper extremity symptoms, anticoagulation TRAVEL OUTSIDE OF THE [place] IN LAST 30 DAYS: No - Related Data Allergies/Adverse Reactions: codeine [Codeine] Allergy (Mild, Verified 12/26/19 16:00) Itching ketorolac tromethamine [From Toradol] Allergy (Unknown, Verified 12/26/19 16:00) Anxiety nalbuphine HCl [From Nubain] Allergy (Unknown, Verified 12/26/19 16:00) Anxiety ondansetron HCl [From Zofran] Allergy (Unknown, Verified 12/26/19 16:00) Itching droperidol [Droperidol] Allergy (Verified 12/26/19 16:00) reports heart racing, doesn't like how it makes her feel Past Medical History - General Information source: Patient, [facility] Records - Social History Smoking Status: Unknown if Ever Smoked Family History: Reviewed & Not Pertinent, CAD, CVA, Hypertension Patient has homicidal ideation: No - Past Medical History Cardiac Medical History: Reports: Hx Heart Attack - w/o stent, Hx Hypercholesterolemia, Hx Hypertension Denies: Hx Coronary Artery Disease Pulmonary Medical History: Reports: Hx Sleep Apnea Denies: Hx Asthma, Hx Bronchitis, Hx COPD, Hx Pneumonia Neurological Medical History: Reports: Hx Migraine. Denies: Hx Cerebrovascular Accident, Hx Seizures Endocrine Medical History: Reports: Hx Diabetes Mellitus Type 2 Renal/ Medical History: Reports: Hx End Stage Renal Disease, Hx Hemodialysis - MWF, Hx Renal Insufficiency. Denies: Hx Peritoneal Dialysis GI Medical History: Reports: Hx Gastroesophageal Reflux Disease, Hx Irritable Bowel Musculoskeletal Medical History: Reports Hx Arthritis - right knee, Reports Hx Fibromyalgia, Reports Hx Musculoskeletal Deformity, Reports Hx Musculoskeletal Trauma Skin Medical History: Denies Hx Eczema, Denies Hx Psoriasis Psychiatric Medical History: Reports: Hx Depression, Hx Post Traumatic Stress Disorder Past Surgical History: Reports: Hx Appendectomy, Hx Cardiac Catheterization - 3, Hx Cholecystectomy, Hx Hysterectomy, Hx Orthopedic Surgery - RIGHT ANKLE SURGERY 01/2011, shoulder surgery 12/2106, Hx Thyroid Surgery, Hx Vascular Surgery - port a cath R upper chest. Denies: Hx Pacemaker - Immunizations Hx Diphtheria, Pertussis, Tetanus Vaccination: Yes - 06/17/17 Hx Pneumococcal Vaccination: 04/19/17 Review of Systems - Review of Systems Notes: REVIEW OF SYSTEMS: CONSTITUTIONAL : Denies fever, chills, or sweats. EENT: Denies recent cold/sinus symptoms, denies throat pain CARDIOVASCULAR: Denies chest pain, WHIT RESPIRATORY: Denies cough, denies shortness of breath. GASTROINTESTINAL: Denies abdominal pain, nausea/vomiting. GENITOURINARY: Denies difficulty urinating, painful urination. FEMALE GENITOURINARY: Denies abnormal vaginal bleeding, vaginal discharge. MUSCULOSKELETAL: + neck pain, +back pain. SKIN: Denies rash or skin lesions. HEMATOLOGIC : Denies easy bruising or bleeding. LYMPHATIC: Denies swollen, enlarged glands. NEUROLOGICAL: +headache, denies change in gait. PSYCHIATRIC: Denies anxiety or stress or depression. Physical Exam - Vital signs Vitals: Temp Pulse BP Pulse Ox 98.3 F 94 129/67 H 98 12/26/19 15:57 12/26/19 15:57 12/26/19 15:57 12/26/19 15:57 - Notes Notes: PHYSICAL EXAMINATION: GENERAL: Chronically ill-appearing middle-aged woman appearing stated age lying in stretcher with no acute distress HEAD: Atraumatic, normocephalic. EYES: Pupils equal round and appropriate constriction, sclera anicteric, conjunctiva are normal. ENT: nares patent, moist mucous membranes. NECK/BACK: Diffuse midline tenderness of the entire CTL and the spine, patient's exam unreliable, screams from pain before my finger touches her skin for palpation, when distracted unable to find any focality to exam, no deformity palpated LUNGS: Breath sounds clear to auscultation bilaterally and equal. No wheezes rales or rhonchi. HEART: Regular rate and rhythm without murmurs ABDOMEN: Soft, nontender, no guarding, no masses, no CVAT EXTREMITIES: Normal range of motion, no pitting or edema. No cyanosis. Right forearm fistula with +thrill, radial pulses 2+ bilaterally, DP pulses 2+ bilaterally, 5/5 strength in the lower extremities in all distributions, fully undressed head to toe trauma evaluation performed which showed no visible signs of trauma, no focal bony tenderness or deformity NEUROLOGICAL: Awake, alert, conversing appropriately, moves all extremities spontaneously, gait narrow based and steady, rectal tone normal SKIN: Warm, Dry, normal turgor, few small ecchymoses on bilateral thighs which patient says were present prior to fall Exam chaperoned by FAYE Ortiz. Course - Re-evaluation Re-evalutation: 12/26/19 22:38 Obtain lumbar and thoracic MRI without any emergent findings and CT head and C- spine and cxr and pelvis dx which also had no emergent findings. Obtained because patient exam was unreliable and patient with possible bleeding diatheses secondary to ESRD and platelet dysfunction, but no signs of epidural hematoma, patient's neuro exam remains normal, patient ready for discharge with PCP and Ortho follow-up. Patient given Phenergan for chronic nausea but no acute change in this and patient is tolerating p.o. Will give patient a copy of all instructions and information for orthopedic surgeon. Given extensive return to ED precautions which he demonstrated understanding of. - Vital Signs Vital signs: Temp Pulse Resp BP Pulse Ox 98.6 F 101 H 16 133/76 H 97 12/26/19 22:52 12/26/19 22:52 12/26/19 22:52 12/26/19 22:52 12/26/19 22:52 12/26/19 20:52 Minor mechanism but given patient's unreliable exam, medical history, possible bleeding diatheses secondary to platelet dysfunction from ESRD, and not able to do focal exam obtain MRI thoracic and lumbar spine and CT of patient's head and C-spine to rule out epidural hematoma causing current symptoms. no objective neuro deficits on exam, gait steady, will obtain basic labs and ck because patient complaining of geenralized weakness but no objective signs of weakness on my exam. Likely discharge after imaging with follow-up with pain management PCP and Ortho. - Laboratory Result Diagrams: 12/26/19 19:05 12/26/19 19:05 Laboratory results interpreted by me: 12/26/19 12/26/19 12/26/19 19:05 19:05 19:05 RBC 2.43 L Hgb 8.4 L Hct 23.8 L MCV 98 H D MCH 34.3 H RDW 17.8 H APTT 50.9 H Creatinine 4.03 H Est GFR ( Amer) 14 L Est GFR (MDRD) Non-Af 12 L Glucose 123 H Direct Bilirubin 0.5 H Alkaline Phosphatase 169 H Discharge - Discharge Clinical Impression: Back pain Qualifiers: Back pain location: low back pain Chronicity: unspecified Back pain laterality: midline Sciatica presence: without sciatica Qualified Code(s): M54.5 - Low back pain Disposition: HOME, SELF-CARE Additional Instructions: Follow-up with your primary doctor and orthopedic surgeon within 1 week. If you have any worsening symptoms, worsening pain, vomiting, change in vision or speech, difficulty walking, weakness or numbness, trouble urinating or holding drowsiness, fever, worsening pain, or any other worsening or alarming symptoms return to the emergency department immediately. Prescriptions: RX: Acetaminophen [Mapap] 650 mg PO Q6HP PRN #20 tablet PRN Reason: Mild Pain Methocarbamol [Robaxin 500 mg Tablet] 500 mg PO TIDP PRN #6 tablet PRN Reason: Muscle Spasms Referrals: JAYLIN LEROY PA-C [Primary Care Provider] - Follow up as needed SAMMI COBB MD [ACTIVE STAFF] - Follow up as needed
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
[2019-12-26 23:02] VITALS: BP 133/76
== END 2019-12-26 23:02 | disposition home or self-care (01) ==
LOC: ER 15:50
DX: M54.5 Low back pain (principal); R51 Headache; W06.XXXA Fall from bed, initial encounter; M54.2 Cervicalgia; I12.0 Hypertensive chronic kidney disease with stage 5 chronic kidney disease or end stage renal disease; E11.22 Type 2 diabetes mellitus with diabetic chronic kidney disease; N18.6 End stage renal disease; Z99.2 Dependence on renal dialysis; Z88.6 Allergy status to analgesic agent; Z88.5 Allergy status to narcotic agent; Z88.8 Allergy status to other drugs, medicaments and biological substances
CPT/HCPCS: 36591; 99285; 96374; 96375; 36415; 82550; 84703; 85025; 85610; 85730; 80053; 72146; 72148; 71045; 72170; 70450; 72125; J3490; J2060; A9270; J1642

== ENCOUNTER 2020-01-13 07:45 | Emergency (ER) | payer MEDICARE, OTHER, MEDICAID ==
--- NOTE | 2020-01-13 09:28 | ER Document Report ---
ED General - General Chief Complaint: Headache Stated Complaint: HEADACHE,NAUSEA Time Seen by Provider: 01/13/20 09:27 Primary Care Provider: JAYLIN LEROY PA-C [Primary Care Provider] - Follow up as needed WILLIE IRAHETA MD [NO LOCAL MD] - Follow up tomorrow TRAVEL OUTSIDE OF THE [place] IN LAST 30 DAYS: No - HPI Notes: 54-year-old female 3 of chronic renal disease, type 2 diabetes, hypercholesterolemia, hypertension, migraines presents to the emergency room with complaints of a headache that started yesterday, states that it similar to her previous headaches but it is a bit worse. She was seen at [facility] last week and admitted for headache and right-sided weakness, she states that she had an MRI of her head and of her neck and had a thorough consult with neurology, states they did see some "spots on my MRI" and she has follow-up with neurology. She does have an established neurologist at [facility] here in [place]. Patient states that they gave her DHE a infusions while she was at [facility]. Her neurologist then put her on Fioricet for her headaches as well as Aimovig for her injections. Patient has a follow-up with her neurologist next week. And she has follow-up with her primary care provider, Aminta CUEVAS, in the next week. Patient states that her symptoms are no worse than the symptoms when she was at [facility]. She denies as being the worst headache of her life however she states that the headache is more than what her Fioricet is doing for her but she states she sometimes can get a rebound headache from her Fioricet. Denies any head trauma or change in level consciousness. Patient states that she has had intermittent right-sided weakness that was worked up at [facility]. She denies any new symptoms at this time. Patient does get dialysis eyes Wednesday, she was dialysis eyes yesterday. She refuses any IV fluids she would prefer to have Benadryl, Toradol. Denies fevers, chills, chest pain,palpitations, shortness of breath, dyspnea, nausea, vomiting, diarrhea, abdominal pain, hematuria,blurred vision, double vision, loss of vision, speech changes, LH, dizziness, syncope, wheezing, ST, URI, neck pain, weakness, bowel or bladder dysfunction, saddle anesthesia, numbness or tingling in bilateral upper or lower extremities equally, muscle paralysis, weakness in bilateral upper or lower extremities equally or rash. Denies IV drug use. MEDICATIONS: I agree with the patient medications as charted by the RN. ALLERGIES: I agree with the allergies as charted by the RN. PAST MEDICAL HISTORY/PAST SURGICAL HISTORY: Reviewed and agree as charted by RN. SOCIAL HISTORY: Reviewed and agree as charted by RN. FAMILY HISTORY: No significant familial comorbid conditions directly related to patient complaint EXAM: Reviewed vital signs as charted by RN. REVIEW OF SYSTEMS:reviewed vital signs by RN CONSTITUTIONAL : Denies fever, chills, or sweats. Denies recent illness. EENT: Denies eye, ear, throat, or mouth pain or symptoms. Denies nasal or sinus congestion or discharge. Denies throat, tongue, or mouth swelling or difficulty swallowing. CARDIOVASCULAR: Denies chest pain. Denies palpitations or racing or irregular heart beat. Denies ankle edema. RESPIRATORY: Denies cough, cold, or chest congestion. Denies shortness of breath, difficulty breathing, or wheezing. GASTROINTESTINAL: Denies abdominal pain or distention. Denies nausea, vomiting, or diarrhea. Denies blood in vomitus, stools, or per rectum. Denies black, tarry stools. Denies constipation. GENITOURINARY: Denies difficulty urinating, painful urination, burning, frequency, blood in urine, or discharge. FEMALE GENITOURINARY: Denies vaginal bleeding, heavy or abnormal periods, irregular periods. Denies vaginal discharge or odor. MUSCULOSKELETAL: Denies back or neck pain or stiffness. Denies joint pain or swelling. SKIN: Denies rash, lesions or sores. HEMATOLOGIC : Denies easy bruising or bleeding. LYMPHATIC: Denies swollen, enlarged glands. NEUROLOGICAL: Denies confusion or altered mental status. Denies passing out or loss of consciousness. Denies dizziness or lightheadedness. reports headache. Denies weakness or paralysis or loss of use of either side. Denies problems with gait or speech. Denies sensory loss, numbness, or tingling. Denies seizures. PSYCHIATRIC: Denies anxiety or stress. Denies depression, suicidal ideation, or homicidal ideation. ALL OTHER SYSTEMS REVIEWED AND NEGATIVE. PHYSICAL EXAMINATION: GENERAL: Well-appearing, well-nourished and in no acute distress. HEAD: Atraumatic, normocephalic. EYES: Pupils equal round and reactive to light, extraocular movements intact, conjunctiva are normal. ENT: Nares patent, oropharynx clear without exudates. Moist mucous membranes. NECK: Normal range of motion, supple without lymphadenopathy LUNGS: Breath sounds clear to auscultation bilaterally and equal. No wheezes rales or rhonchi. HEART: Regular rate and rhythm without murmurs ABDOMEN: Soft, nontender, nondistended abdomen. No guarding, no rebound. No masses appreciated. Female : deferred Musculoskeletal: Normal range of motion, no pitting or edema. No cyanosis. NEUROLOGICAL: Cranial nerves grossly intact. Normal speech, normal gait. Normal sensory, motor exams. PERRLA, EOMI. Full motor and sensory function thro ughout. 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 Tongue midline. No pronator drift. No ataxia. Neck with APROM. Raises eyebrows. Strength is 5 out of 5 in bilateral upper and lower extremities equally.Speaks in full sentences. No weakness on one side. Romberg gait steady able to walk straight line. Able to recall 5 objects. PSYCH: Normal mood, normal affect. SKIN: Warm, Dry, normal turgor, no rashes or lesions noted. Dictation was performed using [employer] voice recognition software - Related Data Allergies/Adverse Reactions: codeine [Codeine] Allergy (Mild, Verified 01/13/20 08:21) Itching ketorolac tromethamine [From Toradol] Allergy (Unknown, Verified 01/13/20 08:21) Anxiety nalbuphine HCl [From Nubain] Allergy (Unknown, Verified 01/13/20 08:21) Anxiety ondansetron HCl [From Zofran] Allergy (Unknown, Verified 01/13/20 08:21) Itching droperidol [Droperidol] Allergy (Verified 01/13/20 08:21) reports heart racing, doesn't like how it makes her feel Past Medical History - General Information source: Patient - Social History Smoking Status: Never Smoker Family History: Reviewed & Not Pertinent, CAD, CVA, Hypertension Patient has homicidal ideation: No - Past Medical History Cardiac Medical History: Reports: Hx Heart Attack - w/o stent, Hx Hypercholesterolemia, Hx Hypertension Denies: Hx Coronary Artery Disease Pulmonary Medical History: Reports: Hx Sleep Apnea Denies: Hx Asthma, Hx Bronchitis, Hx COPD, Hx Pneumonia Neurological Medical History: Reports: Hx Migraine. Denies: Hx Cerebrovascular Accident, Hx Seizures Endocrine Medical History: Reports: Hx Diabetes Mellitus Type 2 Renal/ Medical History: Reports: Hx End Stage Renal Disease, Hx Hemodialysis - MWF, Hx Renal Insufficiency. Denies: Hx Peritoneal Dialysis GI Medical History: Reports: Hx Gastroesophageal Reflux Disease, Hx Irritable Bowel Musculoskeletal Medical History: Reports Hx Arthritis - right knee, Reports Hx Fibromyalgia, Reports Hx Musculoskeletal Deformity, Reports Hx Musculoskeletal Trauma Skin Medical History: Denies Hx Eczema, Denies Hx Psoriasis Psychiatric Medical History: Reports: Hx Depression, Hx Post Traumatic Stress Disorder Past Surgical History: Reports: Hx Appendectomy, Hx Cardiac Catheterization - 3, Hx Cholecystectomy, Hx Hysterectomy, Hx Orthopedic Surgery - RIGHT ANKLE SURGERY 01/2011, shoulder surgery 12/2106, Hx Thyroid Surgery, Hx Vascular Surgery - port a cath R upper chest. Denies: Hx Pacemaker - Immunizations Hx Diphtheria, Pertussis, Tetanus Vaccination: Yes - 06/17/17 Hx Pneumococcal Vaccination: 04/19/17 Physical Exam - Vital signs Vitals: Temp Pulse Resp BP Pulse Ox 98.6 F 85 16 149/99 H 100 01/13/20 08:17 01/13/20 08:17 01/13/20 08:17 01/13/20 08:17 01/13/20 08:17 Course - Re-evaluation Re-evalutation: 01/13/20 19:07 Afebrile vital stable no distress. Nurses notes reviewed. Patient refusing IV fluids. CT of her head negative for any acute findings per radiology due to patient stating she was having a worsening headache. Patient given Toradol 15 mg after reading the CT of her head and 50 mg of Benadryl via her port. Patient states her headache is still bothering her. Patient has no focal neurological deficits on examination consulted with Dr. Andrea Gomez, advising ER physician, is not that any further imaging is needed however just managing more of her headaches. Patient given Compazine 10 mg, on reevaluation patient stated that her headache is not improving as much. We discussed adding another 50 mg of Benadryl IVP as well as Phenergan she states that typically does help. Discussed with patient that she does need to follow-up with her neurologist on Wednesday. Patient states she ran out of her Depakote for her management of her headaches, I will fill her for 2 days as well as giving her Noble sixpack because I will not fill her Ultram or her Stadol because they are controlled substances and I am not sure she is in a pain contract with her doctor. Patient is agreeable with this plan of care and stated that after the Benadryl and the Phenergan her headache had resolved some. Patient verbalized understanding that she would follow-up with her neurologist as well as her primary care provider within the next 24 to 40 mg. Return to the emergency room if you experience any worsening headaches. After performing a Medical Screening Examination, I estimate there is LOW risk for ACUTE GLAUCOMA, TEMPORAL ARTERITIS, MENINGITIS, INCRANIAL HEMORRHAGE, or ISCHEMIC STROKE thus I consider the discharge disposition reasonable. I have reevaluated this patient multiple times and no significant life threatening changes are noted. The patient and I have discussed the diagnosis and risks, and we agree with discharging home with close follow- up with the understanding that symptoms and presentations can change. We also discussed returning to the Emergency Department immediately if new or worsening symptoms occur. We have discussed the symptoms which are most concerning (e.g., changing or worsening symptoms, new numbness or weakness, vomiting, fever) that necessitate immediate return. - Vital Signs Vital signs: Temp Pulse Resp BP Pulse Ox 98.1 F 82 18 167/99 H 100 01/13/20 17:08 01/13/20 16:53 01/13/20 16:43 01/13/20 16:53 01/13/20 16:43 - Laboratory Result Diagrams: 01/13/20 12:21 01/13/20 12:21 Laboratory results interpreted by me: 01/13/20 01/13/20 12:21 12:21 WBC 3.8 L RBC 2.84 L Hgb 9.3 L Hct 27.8 L MCV 98 H RDW 17.2 H BUN 21 H Creatinine 3.74 H Est GFR ( Amer) 15 L Est GFR (MDRD) Non-Af 13 L Direct Bilirubin 0.7 H Alkaline Phosphatase 193 H Discharge - Discharge Clinical Impression: Headache, Chronic kidney disease, stage V, type 2 diabetes Condition: Stable Disposition: HOME, SELF-CARE Instructions: Use of Diphenhydramine, Headache ([facility]), Toradol Injection ([facility]) Additional Instructions: CT of your head today was normal. You did receive some intravenous medication for your headaches. Please follow-up with your already scheduled neurology appointments. Please increase oral hydration continue taking your Fioricet and other prescribed headache medication. Please continue guarding dialysis for chronic kidney disease. Check your blood sugars regularly. Please return to the emergency room if you are experiencing any worsening headaches, weakness, shortness of breath, chest pain Return immediately for any new or worsening symptoms. Follow up with primary care provider, call tomorrow to make followup appointment. Prescriptions: Divalproex Sodium [Depakote] 500 mg PO BID #4 tablet.dr Referrals: JAYLIN LEROY PA-C [Primary Care Provider] - Follow up as needed WILLIE IRHAETA MD [NO LOCAL MD] - Follow up tomorrow
[2020-01-13] MEDS ORDERED: NORMAL SALINE 1000 ML 1,000 ML IV ONE (10:31)
[2020-01-13] MEDS ORDERED: DIPHENHYDRAMINE HCL 50 MG/ML VIAL IV ONE ×3 (10:31→15:35)
[2020-01-13] MEDS ORDERED: METOCLOPRAMIDE HCL INJ/PF 10 MG/2 ML SDV IV ONE (10:31)
--- NOTE | 2020-01-13 11:30 | RADIOLOGY REPORT (SQ) ---
EXAM DESCRIPTION: CT HEAD WITHOUT IMAGES COMPLETED DATE/TIME: 01/13/2020 11:21 am REASON FOR STUDY: DUKES, reports right sided weakness x 2 weeks COMPARISON: 12/26/2019. TECHNIQUE: Axial images acquired through the brain without intravenous contrast. Images reviewed wi th bone, brain and subdural windows. Additional sagittal and coronal reconstructions were generated. Images stored on PACS. All CT scanners at this facility use dose modulation, iterative reconstruction, and/or weight based d osing when appropriate to reduce radiation dose to as low as reasonably achievable (ALARA). [facility]: Dose Right [facility]: CareDose [facility]: Dose Right [facility]: Teradose 4D [facility]: Smart Konnektid RADIATION DOSE: CT Rad equipment meets quality standard of care and radiation dose reduction techniq ues were employed. CTDIvol: 53.2 mGy. DLP: 991 mGy-cm. mGy. LIMITATIONS: None. FINDINGS: VENTRICLES: Normal size and contour. CEREBRUM: No masses. No hemorrhage. No midline shift. No evidence for acute infarction. Normal gra y/white matter differentiation. No areas of low density in the white matter. CEREBELLUM: No masses. No hemorrhage. No alteration of density. No evidence for acute infarction. EXTRAAXIAL SPACES: No fluid collections. No masses. ORBITS AND GLOBE: No intra- or extraconal masses. Normal contour of globe without masses. CALVARIUM: No fracture. PARANASAL SINUSES: No fluid or mucosal thickening. SOFT TISSUES: No mass or hematoma. OTHER: No other significant finding. IMPRESSION: NORMAL BRAIN CT WITHOUT CONTRAST. EVIDENCE OF ACUTE STROKE: NO. COMMENT: Quality ID # [id number]: Final reports with documentation of one or more dose reduction techniques (e.g., Automated exposure control, adjustment of the mA and/or kV according to patient size, use of iterative reconstruction technique) TECHNICAL DOCUMENTATION: JOB ID: [id number] [email or web address]- All Rights Reserved Reading location - IP/workstation name: [email or web address]
[2020-01-13 12:34] LABS: ABSOLUTE EOSINOPHILS # (AUTO) 0.1 10^3/uL (0.0-0.6); ABSOLUTE LYMPHOCYTES (AUTO) 1.4 10^3/uL (0.5-4.7); ABSOLUTE MONOCYTES (AUTO) 0.5 10^3/uL (0.1-1.4); ABSOLUTE NEUT (AUTO) 1.8 10^3/uL (1.7-8.2); BASOPHILS % (AUTO) 0.7 % (0-2); EOSINOPHILS % (AUTO) 2.4 % (0-6); HEMATOCRIT 27.8 % (36.0-47.0); HEMOGLOBIN 9.3 g/dL (12.0-15.5); LYMPHOCYTES % (AUTO) 36.5 % (13-45); MEAN CORPUSCULAR HEMOGLOBIN 32.9 pg (27.0-33.4); MEAN CORPUSCULAR HGB CONC 33.6 g/dL (32.0-36.0); MEAN CORPUSCULAR VOLUME 98 fl (80-97); MONOCYTES % (AUTO) 12.1 % (3-13); PLATELET COUNT 216 10^3/uL (150-450); RED BLOOD COUNT 2.84 10^6/uL (3.72-5.28); RED CELL DISTRIBUTION WIDTH 17.2 % (11.5-14.0); SEGMENTED NEUTROPHILS % (AUTO) 48.3 % (42-78); TOTAL CELLS COUNTED % (AUTO) 100 %; WHITE BLOOD COUNT 3.8 10^3/uL (4.0-10.5)
[2020-01-13] MEDS ORDERED: KETOROLAC TROMETHAMINE INJ/PF 30 MG/1 ML SDV IV ONE (12:40)
[2020-01-13 12:52] LABS: ALBUMIN 3.7 g/dL (3.5-5.0); ALKALINE PHOSPHATASE 193 U/L (38-126); ANION GAP 7 (5-19); ASPARTATE AMINO TRANSFERASE 22 U/L (14-36); BILIRUBIN,DIRECT 0.7 mg/dL (0.0-0.4); BILIRUBIN,TOTAL 0.7 mg/dL (0.2-1.3); BLOOD UREA NITROGEN 21 mg/dL (7-20); CALCIUM 8.9 mg/dL (8.4-10.2); CARBON DIOXIDE 28 mmol/L (22-30); CHLORIDE 106 mmol/L (98-107); GLUCOSE 88 mg/dL (75-110); POTASSIUM 3.6 mmol/L (3.6-5.0); TOTAL PROTEIN 6.8 g/dL (6.3-8.2)
[2020-01-13] MEDS ORDERED: PROCHLORPERAZINE MALEATE 10 MG TABLET PO ONE (14:08)
[2020-01-13] MEDS ORDERED: PROMETHAZINE HCL INJ 25 MG/1 ML VIAL IV ONE (15:35)
[2020-01-13] MEDS ORDERED: HYDROCODONE/ACETAMINOPHEN 5-325 MG (6 TAB/ER DISP) PO PRN (16:59)
[2020-01-13 17:08] VITALS: BP 167/99
== END 2020-01-13 17:08 | disposition home or self-care (01) ==
LOC: ER 07:45
DX: R51 Headache (principal); I12.0 Hypertensive chronic kidney disease with stage 5 chronic kidney disease or end stage renal disease; N18.5 Chronic kidney disease, stage 5; E11.22 Type 2 diabetes mellitus with diabetic chronic kidney disease; M62.81 Muscle weakness (generalized); I25.2 Old myocardial infarction
CPT/HCPCS: 36591; 96376; 99285; 96374; 96375; 36415; 85025; 80053; 70450; J1200; J1885; A9270 ×2; J2550; J1642; S0183

== ENCOUNTER 2020-02-27 19:09 | Emergency (ER) | payer MEDICARE, OTHER, MEDICAID ==
--- OUTSIDE RECORDS SUMMARY | 2020-02-29 17:41 | XMS REPORT ---
:1965 Author Organization Critical access hospital Address [facility] [address] [place] [address] Care Team Providers Name Role Phone HONORIO MUNOZ Primary Care Physician Unavailable Aron LORD Attending Clinician Unavailable LIDA HUERTA Attending Clinician Unavailable IRINA Attending Clinician Unavailable PAINTER KUN Attending Clinician Unavailable MICHAEL LOPEZ Attending Clinician Unavailable ROLA DE LA CRUZ Attending Clinician Unavailable CHRISSY SIM Attending Clinician Unavailable MONIKA ADAM Attending Clinician Unavailable MD Zuly Phillips Attending Clinician Unavailable MD Zuly Phillips Attending Clinician Unavailable Meatravis DO E Attending Clinician Unavailable MeaDO travis E Attending Clinician Unavailable MD Joanna [place] Attending Clinician Unavailable MD Joanna [place] Attending Clinician Unavailable Douglas Attending Clinician Unavailable Adelia BACA Attending Clinician Unavailable MD Alice Martinez Attending Clinician Unavailable MD Alice Martinez Attending Clinician Unavailable MD Dannie Attending Clinician Unavailable MD Dannie Attending Clinician Unavailable MD Naseem Ibarra Attending Clinician Unavailable MD Naseem Ibarra Attending Clinician Unavailable MD Adelia Benitez Attending Clinician Unavailable MD Adelia Benitez Attending Clinician Unavailable DO Adelia Ingram Attending Clinician Unavailable DO Adelia Ingram Attending Clinician Unavailable Jaden Attending Clinician Unavailable Jaden Attending Clinician Unavailable Radha Farris Attending Clinician Unavailable Radha Farris Attending Clinician Unavailable Terrence Choudhary Attending Clinician Unavailable Terrence Choudhary Attending Clinician Unavailable MD William Avina Attending Clinician Unavailable MD William Avina Attending Clinician Unavailable SHEEBA Attending Clinician Unavailable JENNI TELLO Attending Clinician Unavailable SHERWIN KELLEY Attending Clinician Unavailable DO Delfino Mcdonald Admitting Clinician Unavailable Joanna Martino Admitting Clinician Unavailable MD Joanna [place] Admitting Clinician Unavailable Adelia BACA Admitting Clinician Unavailable MD Alice Martinez Admitting Clinician Unavailable Banker, MD F Admitting Clinician Unavailable MD Adelia Benitez Admitting Clinician Unavailable DO Adelia Ingram Admitting Clinician Unavailable MD Jacqueline Morin Admitting Clinician Unavailable MD Ward Brothers Admitting Clinician Unavailable Radha Farris Admitting Clinician Unavailable MD William Avina Admitting Clinician Unavailable SHEEBA Admitting Clinician Unavailable Allergies, Adverse Reactions, Alerts Allergy Allergy Status Severity Reaction(s) Onset Inactive Treating C omments Name Type Date Date Clinician Nalbuphine Propensity Active Itching 2020-0 to adverse 9-10 reactions 00:00: to drug 00 Ketorolac Propensity Active Itching 2020-0 to adverse 9-10 reactions 00:00: to drug 00 Ondansetro Propensity Active Itching 2020-0 n Hcl to adverse 9-10 reactions 00:00: to drug 00 Propoxyphe Propensity Active Severe Rash 2020-0 Ot her ne to adverse 6-03 react ion(s N-Acetamin reactions 00:00: ): Anxiety ophen to drug 00 Propoxyphe Propensity Active Severe Rash 2020-0 Ot her ne to adverse 6-03 react ion(s N-Acetamin reactions 00:00: ): Anxiety ophen to drug 00 ONDANSETRO Drug Active U 2019-0 N HCL allergy 2-14 00:00: 00 NALBUPHINE Drug Active U 2019-0 HCL allergy 2-14 00:00: 00 KETOROLAC Drug Active U 2019-0 TROMETHAMI allergy 2-14 NE 00:00: 00 Codeine Propensity Active Moderate Itching 2018-0 Pt r eports to adverse 2-13 codei ne reactions 00:00: allerg y to drug 00 but stat es she does not have any problems taking Oxycodon e Ondansetro Propensity Active 2010-0 n Hcl (Pf) to adverse 5-16 reactions 00:00: to drug 00 Prochlorpe Propensity Active 2007-0 razine to adverse 7-20 Edisylate reactions 00:00: to drug 00 Nalbuphine Propensity Active Nausea and 0 to adverse Vomiting 7-20 reactions 00:00: to drug 00 Ketorolac Propensity Active Nausea and 2008-0 Tromethami to adverse Vomiting 7-20 ne reactions 00:00: to drug 00 Prochlorpe Propensity Active Moderate Anxiety 2007-0 d oes take razine to adverse 7-20 [place] zine reactions 00:00: with I V to drug 00 benadryl Compazine1 Drug Active Moderate anxiety allergy Toradol Drug Active Mild itching allergy Darvocet-N Drug Active Severe Itching 100 allergy Zofran Drug Active Moderate Urticaria allergy (morphologic abnormality) Darvocet-N Drug Inactive Severe Itching 100 allergy codeine Drug Active Moderate Hives allergy Nubain Drug Active Moderate itching allergy Medications Ordered Filled Start Stop Current Ordering Indication Dosage Frequency Signature Comments Components Medication Medication Date Date Medication? Clinician (SIG) Name Name heparin 2020-0 2020- No 3mL 300 Units flush (PF) 01-16 (3 mL), (porcine) 20:00: 19:42 Intravenou 100 unit/mL 00 :00 s, Per injection Protocol, 300 Units Starting Wed01/17/20 at 2000, For 1 dose
Pe r Unit Protocol<b r> metoprolol 2020-0 No 25mg Q.5D 25 mg, succinate 01-16 Oral, 2 (TOPROL-XL) 09:00: times XL tablet 00 Daily, 25 mg First dose (after last reorder) on Wed01/17/20 at 0900
Ho ld for SBP < 100 or for HR < 60. D o not chew or crush.
aspirin 2020-0 No 81mg QD [Order 1 chewable 01-16 Start] tablet 81 09:00: Name: mg 00 aspirin chewable tablet 81 mg Signed Summary: 81 mg, Oral, Daily, First dose on Wed01/17/20 at 0900
Ad screening specialist PO formulatio n if passes dysphagia screen, or administer [place] formulatio n if patient fails dysphagia screen.&nb sp;Table t may be chewed or crushed.
[Order 1 End] [Order 2 Start] Name: aspirin suppositor y 150 mg Signed Summary: 150 mg, Rectal, Daily, First dose on Wed01/17/20 at 0900
Ad screening specialist PO formulatio n if passes dysphagia screen, or administer [place] formulatio n if patient fails dysphagia screen.&nb sp; Stored in Refrigerat or
[Order 2 End] lamoTRIgine 2020-0 No 25mg Q.5D 25 mg, (LaMICtal) 01-16 Oral, 2 tablet 25 09:00: times mg 00 Daily, First dose on Wed01/17/20 at 0900 gabapentin 2020-0 No 300mg Q.5D 300 mg, (NEURONTIN) 01-16 Oral, 2 capsule 300 09:00: times mg 00 Daily, First dose on Wed01/17/20 at 0900 DULoxetine 2020-0 No 60mg Q.5D 60 mg, (CYMBALTA) 01-16 Oral, 2 DR capsule 09:00: times 60 mg 00 Daily, First dose on Wed01/17/20 at 0900
Do not crush, chew, or split. Swallow whole.<b r> divalproex 2020-0 No 500mg Q.5D 500 mg, (DEPAKOTE 01-16 Oral, 2 ER) ER 09:00: times tablet 500 00 Daily, mg First dose on Wed01/17/20 at 0900
Do not crush, chew, or split. Swallow whole.<b r> clopidogreL 2019-0 No 75mg QD 75 mg, (PLAVIX) 01-16 Oral, tablet 75 09:00: Daily, mg 00 First dose on Wed01/17/20 at 0900 ARIPiprazol 2020-0 No 15mg QD 15 mg, e (ABILIFY) 01-16 Oral, tablet 15 09:00: Daily, mg 00 First dose on Wed01/17/20 at 0900 acetaminoph 2020-0 No 1000mg Q8H 1,000 mg, en 01-16 Oral, (TYLENOL) 06:11: Every 8 tablet 34 hours PRN, 1,000 mg mild pain (1-3), Headache, Starting Wed01/17/20 at 0611
Ma ximum acetaminop hen intake from all sources should not exceed 75 mg/kg OR 4 grams in any 24 hour period, whichever is less.
calcium 2020-0 No 667mg [id number] 667 mg, acetate(jessica 01-16 [id number] Oral, 3 sphat bind) 01:00: 3D times (PHOSLO) 00 Daily, capsule 667 First dose mg on Wed01/17/20 at 0100
Ca psule may be opened and contents may be crushed.<b r> heparin 2020-0 2020- No 5000U Q.[id number] 5,000 (porcine) 01-16 [id number] Units, injection 01:00: 23:59 3D Subcutaneo 5,000 Units 00 :00 us, Every 8 hours, First dose on Wed01/17/20 at 0100, For 30 days lactulose 2019-0 2020- No 15mL Q24H 15 mL, (ENULOSE) 01-16 10-30 Oral, 20 gram/30 00:47: 00:46 Daily PRN, mL solution 38 :38 Constipati 15 mL on, Starting Wed01/17/20 at 0047, For 30 days sodium 2020-0 2020- No 10mL [id number] 10 mL, chloride 01-16 [id number] Intracathe 0.9% flush 00:00: 23:[address], Every inj syringe 00 :00 8 hours, 10 mL First dose on Wed01/17/20 at 0000, For 30 days sodium 2020-0 2020- No 10mL Q8H 10 mL, chloride 01-15 Intracathe 0.9% flush 20:51: 20:50 ter, Every inj syringe 13 :13 8 hours 10 mL PRN, Line Care, Before and after meds and blood draws, 20 mls, Starting Wed01/16/20 at 2051, For 30 days ARIPiprazol 2019-0 Yes 15mg QD Take 15 mg e (ABILIFY) 9-24 by mouth 15 MG 00:00: once daily tablet 00 diazePAM 2019-0 Yes 5mg Q.5D Take 5 mg (VALIUM) 5 24 by mouth 2 MG tablet 00:00: (two) 00 times daily as needed for Migraine lidocaine 2019-0 No 1{patch Q24H 1 patch, (LIDODERM) 12-28 } Transderma 5 % 1 patch 05:15: l, 00 Administer over 12 Hours, Every 24 hours, First dose on Wed12/29/19 at 0515
Ap ply to Chest&nbsp ;Do not apply if patient has "amide" type anesthetic allergy.<b r> promethazin 2019-0 2020- No 25mg Q6H Take 1 e 12-28 09-16 tablet (25 (PHENERGAN) 00:00: 23:59 mg total) 25 MG 00 :00 by mouth tablet every 6 (six) hours as needed for Nausea for up to 5 days nitroGLYcer No .4mg 0.4 mg, in 9-10 Sublingual (NITROSTAT) 12:56: , As SL tablet 17 Directed, 0.4 mg Chest pain, Starting Ester 12/28/19 at 1256
1 tab q5 minutes x3 tabs as needed for chest pain.&nbsp ;Avoid using nitrates if sildenafil (Revatio, Viagra) or vardenafil (Levitra) have been used within 24 hours or if tadalafil (Cialis, Adcirca) has been used within 48 hours.< br> lamoTRIgine Yes 1{tbl} Q.5D Take 1 (LAMICTAL) 8-31 tablet by 25 MG 00:00: mouth 2 tablet 00 (two) times daily Fioricet 2020- Yes 11 1 cap(s), oral 8 08-23 PO, q4h, capsule 11:41: 11:41 as needed, 00 :00 X 2 day(s), # 12 cap(s), 0 Refill(s), Pharmacy: [facility], [address] [place], [place], [address], cm, 11/17/19 23:31:00 EDT, Height, 102.4, kg, 11/16/19 6:48:00 EDT, Weight PROBIOTIC 2019-0 Yes 1{capsu QD Take 1 ACIDOPHILUS 8-03 le} capsule by 1.5 mg (250 00:00: mouth once million 00 daily cell) Cap Tatyana-Q 2020- No 11 = 1 oral 8- 08-22 cap(s), capsule 14:18: 14:18 PO, Daily, 00 :00 # 21 cap(s), 0 Refill(s), Pharmacy: [facility], [address] - [place], [place], [address], cm, 11/17/19 23:31:00 EDT, Height, 102.4, kg, 11/16/19 6:48:00 EDT, Weight Benadryl 25 2019- Yes 25mg 25 mg = 1 mg oral 7-31 cap(s), capsule 19:26: PO, TID, 00 for itching acyclovir 2020-0 Yes 200mg 200 mg = 1 200 mg oral 7-31 cap(s), capsule 19:26: PO, BID 00 PhosLo 667 2020-0 Yes 667mg 667 mg = 1 mg oral 7-31 cap(s), capsule 19:26: PO, TIDAC 00 cyclobenzap 2020-0 Yes 10mg 10 mg = 1 rine 10 mg 7-31 tab(s), oral tablet 19:25: PO, TID, 00 for spasm Metoprolol 2020-0 Yes 12.5mg 12.5 mg = Succinate 7-31 0.5 ER 25 mg 19:25: tab(s), oral 00 PO, Daily tablet, extended release metoprolol 2019-0 Yes 1{tbl} Q.5D Take 1 succinate 7-31 tablet by (TOPROL-XL) 00:00: mouth 2 25 MG XL 00 (two) tablet times daily diphenhydrA 2019-0 Yes 1{capsu Q6H Take 1 MINE 7-31 le} capsule by (BENADRYL) 00:00: mouth 25 mg 00 every 6 capsule (six) hours as needed for Itching promethazin 2019-0 Yes 25mg 25 mg = 1 e 25 mg 7-21 tab(s), oral tablet 07:42: PO, q6h, 00 as needed for nausea/vom iting, 0 Refill(s) clopidogreL 2020-0 Yes 1{tbl} QD Take 1 (PLAVIX) 75 7-02 tablet by mg tablet 00:00: mouth once 00 daily promethazin 2020-0 Yes 1{tbl} Q8H Take 1 e 7-02 tablet by (PHENERGAN) 00:00: mouth 12.5 MG 00 every 8 tablet (eight) hours as needed for Nausea iodixanoL 2019-0 2020- No 40mL 12,800 mg (VISIPAQUE) 10-09 (40 mL), 320 mg 14:15: 14:16 Intravenou iodine/mL 10 :43 s, RAD injection ONCE, 12,800 mg Other, Starting Tu10/10/19 at 1415, For 1 day fentaNYL 2020-0 2020- No 25ug 25-100 mcg (SUBLIMAZE) 10-09 (0.256-1.0 injection 13:49: 14:16 25 25-100 mcg 16 :43 mcg/kg), Intravenou s, DIRECTED, Starting 10/10/19 at 1349, For 3 hours<b r>Fall Risk Medication . Have readily available for procedure. To be given in Pipe Insulator Helper ONLY by RN as ordered by Cardiology MD during the procedure. See MAR/SHIPYARD PAINTING SUPERVISOR Doc flowsheet for specific administra tion times and amounts.<b r> midazolam No 1mg 1-2 mg (PF) 10-09 (0.0102-0. (VERSED) 13:49: 14:16 0205 injection 06 :43 mg/kg), 1-2 mg Intravenou s, DIRECTED, Starting 10/10/19 at 1349, For 3 hours
F all Risk Medication . Have readily available for procedure. To be given in Pipe Insulator Helper ONLY by RN as ordered by Cardiology MD during the procedure. See MAR/SHIPYARD PAINTING SUPERVISOR Doc flowsheet for specific administra tion times and amounts.<b r> promethazin 2020- No 25mg Q4H 25 mg, e 10-09 Oral, (PHENERGAN) 10:54: 10:53 EVERY 4 tablet 25 59 :59 HOURS mg NEEDED, Nausea/Vom iting, Unrelieved Nausea/Vom iting, Starting 10/10/19 at 1054, For 365 days
Fa ll Risk Medication . &nb sp;Unrelie lauren nausea and vomiting.& nbsp;&nbsp ;
perflutren No 1.43mg 1.43 mg, lipid 10-09 Intravenou microsphere 10:15: 10:00 s, CRD (DEFINITY) 00 :00 ONCE, Tue 10 mL 10/10/19 at injection 1015, For 1 dose
Di lute 1.3 mL of perflutren lipid microspher es with 8.7 mL of sodium chloride and slowly administer as needed for visualizat ion.&n bsp; Use for DEFINITY.< br> sodium 2019-2019- No 75mL/h 75 mL/hr, chloride 10-09-23 Intravenou 0.9 % 08:35: 08:34 s, at 75 infusion 00 :00 mL/hr, CONTINUOUS , Starting Wed10/10/19 at 0835, For 30 days diazePAM 2020-0 2020- No 5mg 5 mg, (VALIUM) 10-09 06-23 Oral, ON tablet 5 mg 08:35: 13:40 CALL, Wed 00 :00 10/10/19 at 0835, For 1 dose
Fa ll Risk Medication . &nb sp;Use for Valium.
potassium 2020-0 Yes 20meq QD Take 20 chloride 5-27 mEq by (KLOR-CON 00:00: mouth M20) 20 mEq 00 daily. Oral Tab Sust.Rel. Particle/Cr ystal lactulose 2020-0 Yes 30g Q.25D Take 30 g (CHRONULAC) 5-27 by mouth 10 gram/15 00:00: four times mL Oral 00 a day. Solution lactulose 2020-0 Yes 30g Q.25D Take 30 g (CHRONULAC) 5-27 by mouth 10 gram/15 00:00: four times mL Oral 00 a day. Solution potassium 2020-0 Yes 20meq QD Take 20 chloride 5-27 mEq by (KLOR-CON 00:00: mouth M20) 20 mEq 00 daily. Oral Tab Sust.Rel. Particle/Cr ystal lactulose 2020-0 Yes 15mL Q24H Take 15 (ENULOSE) 5-27 mLs by 10 gram/15 00:00: mouth once mL oral 00 daily as solution needed for Constipati on eszopiclone 2020-0 Yes 3mg 3 mg = 1 3 mg oral 2-10 tab(s), tablet 14:13: PO, QHS, 0 00 Refill(s) eszopiclone 2020-0 Yes 1{tbl} Q24H Take 1 (LUNESTA) 3 2-10 tablet by mg tablet 00:00: mouth 00 nightly as needed for Sleep acetaminoph 2020-0 Yes 11 1 tab(s), en/butalbit 1-25 PO, q4hr, al/caffeine 17:02: for 325 mg-50 00 headache, mg-40 mg # 60 oral tablet tab(s), 0 Refill(s) calcitriol 2020-0 Yes .25ug 0.25 mcg = 0.25 mcg 1-25 1 cap(s), oral 13:43: PO, M/W/F capsule 00 divalproex Yes 500mg 500 mg = 1 sodium 500 1-25 tab(s), mg oral 10:48: PO, BID tablet, 00 extended release calcitrioL Yes take 1 (ROCALTROL) 1-25 capsule by 0.25 mcg 00:00: oral route Oral 00 every Capsule M/W/ calcitrioL Yes take 1 (ROCALTROL) 1-25 capsule by 0.25 mcg 00:00: oral route Oral 00 every Capsule M/W/ butalbital- Yes 1{tbl} Q4H Take 1 acetaminoph 1-25 tablet by en-caffeine 00:00: mouth (FIORICET) 00 every 4 50-325-40 (four) mg tablet hours as needed for Migraine divalproex Yes 500mg Q.5D Take 500 (DEPAKOTE 1-25 mg by ER) 500 MG 00:00: mouth 2 ER tablet 00 (two) times daily calcium 2018-04 Yes 1{capsu Q.[id number] Take 1 acetate,jessica 1-13 le} [id number] capsule b y sphat bind, 00:00: 3D mouth 3 (PHOSLO) 00 (three) 667 mg times capsule daily DULoxetine 2018-04 Yes 30mg 30 mg = 1 30 mg oral 1-08 cap(s), delayed 15:14: PO, BID, release 00 do not capsule crush or chew gabapentin 2018-04 Yes 1{capsu Q.5D Take 1 (NEURONTIN) 0-22 le} capsule by 300 MG 00:00: mouth 2 capsule 00 (two) times daily nitroglycer Yes .4mg 0.4 mg = 1 in 0.4 mg 19 tab(s), sublingual 18:51: Sublingual tablet 00 , q5min, as needed for chest pain fluticasone Yes 21 2 50 mcg/inh 01-05 spray(s), nasal spray 18:41: Nasal, 00 Daily, in each nostril fluticasone Yes 1{spray QD 1 spray by propionate 9-19 } Nasal (FLONASE) 00:00: route once 50 00 daily mcg/actuati on nasal spray nitroGLYcer Yes 1{tbl} Place 1 in 9-16 tablet (NITROSTAT) 00:00: under the 0.4 MG SL 00 tongue tablet every 5 (five) minutes as needed for Chest pain Plavix 75 Yes 75mg 75 mg = 1 mg oral 11-27 tab(s), tablet 19:45: PO, Daily 00 heparin No 100U 100 Units, flush 04-29 Intravenou (hepARIN) 11:10: 11:05 s, ONCE, 100 unit/mL 00 :00 Fri injection 04/29/18 at 100 Units 1110, For 1 dose heparin Starting flush 12-14e (hepARIN) 11:28: 11:45 12/14/17 at 100 unit/mL 15 :00 1128, For injection 1 - Pyxis dose
Cr Override eated by Pull cabinet override<b r> oxycoDONE No 15mg Q6H Take 15 mg IR 2-13 by mouth (ROXICODONE 12:38: every 6 ) 15 mg 03 hours as Oral Tablet needed for Pain. amlodipine No 5mg QD Take 5 mg (NORVASC) 2-13 by mouth 10 mg Oral 12:38: daily. Tablet 03 escitalopra No 20mg QD Take 20 mg m (LEXAPRO) 2-13 by mouth 20 mg Oral 12:38: daily. Tablet 03 lisinopril No 10mg Q.5D Take 10 mg (PRINIVIL, 2-13 by mouth ZESTRIL) 20 12:38: twice a mg Oral 03 day. Tablet furosemide Yes 40mg QD Take 40 mg (LASIX) 40 2-13 by mouth mg Oral 12:38: daily. Tablet 03 gabapentin Yes 300mg Take 300 (NEURONTIN) 2-13 mg by 300 mg Oral 12:38: mouth at Capsule 03 bedtime. promethazin Yes 50mg Q6H Take 50 mg e 2-13 by mouth (PHENERGAN) 12:38: every 6 25 mg Oral 03 hours as Tablet needed for Nausea. divalproex No 500mg Q.5D Take 500 (DEPAKOTE) 2-13 mg by 500 mg Oral 12:38: mouth Tablet 03 twice a Sustained day. Release 24HR eszopiclone No 3mg Q1D Take 3 mg (LUNESTA) 3 2-13 by mouth mg Oral 12:38: at bedtime Tablet 03 as needed for Sleep. oxyCODONE No 40mg Q.5D Take 40 mg (OXYCONTIN) 2-13 by mouth 40 mg Oral 12:38: every 12 tablet,oral 03 hours. Do only,ext.re not crush, l.12 hr break, or chew tablet. fluticasone Yes 1{spray Q1D 1 [place] by (FLONASE) 2 } Nasal 50 12:38: route as mcg/actuati 03 needed for on Nasal Congestion [place], . Suspension escitalopra Yes 20mg QD Take 20 mg m (LEXAPRO) 06-01 by mouth 20 mg Oral 12:38: daily. Tablet 03 calcitriol 2019- No 1ug QD Take 1 mcg (ROCALTROL) 06-01-23 by mouth 0.25 mcg 12:38: 00:00 daily. Oral 03 :00 Capsule aripiprazol 2019- No 15mg QD Take 15 mg e (ABILIFY) 06-01- by mouth 5 mg Oral 12:38: 00:00 daily. Tablet 03 :00 diazePAM 2019- No 5mg Q12H Take 5 mg (VALIUM) 5 06-01-23 by mouth mg Oral 12:38: 00:00 every 12 Tablet 03 :00 hours as needed for Anxiety. methocarbam 2019- No 750mg QD Take 750 ol 2- 06-23 mg by (ROBAXIN) 12:38: 00:00 mouth 750 mg Oral 03 :00 daily. Tablet ARIPiprazol 2020- No 1{tbl} Q24H Take 1 Tab e (Abilify) 01-15 06-23 by mouth 15 mg Oral 00:00: 00:00 every 24 Tablet 00 :00 hours. cholecalcif No 2000U QD Take 2,000 bucky, 5-16 Units by Vitamin D3, 21:30: mouth 2,000 unit 48 daily. Oral Capsule clonidine 2010- No .3mg Q.[id number] Take 0.3 (CATAPRES) 5-16 [id number] mg by 0.3 mg Oral 21:30: 3D mouth Tablet 47 three times a day. eszopiclone Yes 3mg Q1D Take 3 mg (LUNESTA) 3 by mouth mg Oral at bedtime Tablet as needed for Sleep. calcium Yes 667mg Take 667 acetate mg by (PHOSLO) mouth 667 mg Oral Three Capsule Times a Day With Meals. DULoxetine Yes 60mg Q.5D Take 60 mg (CYMBALTA) by mouth 60 mg Oral twice a Capsule, day. Delayed Release(E.C .) metoprolol Yes 25mg QD Take 25 mg succinate by mouth XL daily. (TOPROL-XL) 25 mg Oral Tablet Sustained Release 24HR nitroglycer Yes .4mg Take 0.4 in mg under (NITROSTAT) tongue 0.4 mg every 5 Sublingual minutes as Tablet, needed for Sublingual Chest pain. butalbital- Yes 1{tbl} Q4H Take 1 Tab acetaminoph by mouth en-caff every 4 (FIORICET, hours as ESGIC) needed for 50-325-40 Headache. mg Oral Tablet clopidogrel Yes 75mg QD Take 75 mg (PLAVIX) 75 by mouth mg Oral daily. Tablet linaCLOtide Yes 145ug Take 145 (LINZESS) mcg by 145 mcg mouth Oral before Capsule breakfast. Do not crush or chew capsule. galcanezuma Yes Q4W Give b-gnlm subcutaneo (Emgality us every 4 Pen) 120 weeks. Pt mg/mL is not Subcutaneou sure of s Pen dose. Injector albuterol Yes 2{puff} Take 2 HFA Puffs by (PROVENTIL inhalation HFA;VENTOLI . N HFA) 90 mcg/actuati on Inhalation HFA Aerosol Inhaler divalproex Yes 500mg Q.5D Take 500 (DEPAKOTE) mg by 500 mg Oral mouth Tablet, twice a Delayed day. Release (E.C.) calcium Yes 667mg Take 667 acetate mg by (PHOSLO) mouth 667 mg Oral Three Capsule Times a Day With Meals. clopidogrel Yes 75mg QD Take 75 mg (PLAVIX) 75 by mouth mg Oral daily. Tablet divalproex Yes 500mg Q.5D Take 500 (DEPAKOTE) mg by 500 mg Oral mouth Tablet, twice a Delayed day. Release (E.C.) DULoxetine Yes 60mg Q.5D Take 60 mg (CYMBALTA) by mouth 60 mg Oral twice a Capsule, day. Delayed Release(E.C .) fluticasone Yes 1{spray Q1D 1 [place] by (FLONASE) } Nasal 50 route as mcg/actuati needed for on Nasal Congestion [place], . Suspension furosemide Yes 40mg QD Take 40 mg (LASIX) 40 by mouth mg Oral daily. Tablet gabapentin Yes 300mg Take 300 (NEURONTIN) mg by 300 mg Oral mouth at Capsule bedtime. metoprolol Yes 25mg QD Take 25 mg succinate by mouth XL daily. (TOPROL-XL) 25 mg Oral Tablet Sustained Release 24HR promethazin Yes 50mg Q6H Take 50 mg e by mouth (PHENERGAN) every 6 25 mg Oral hours as Tablet needed for Nausea. albuterol Yes 2{puff} Take 2 HFA Puffs by (PROVENTIL inhalation HFA;VENTOLI . N HFA) 90 mcg/actuati on Inhalation HFA Aerosol Inhaler butalbital- Yes 1{tbl} Q4H Take 1 Tab acetaminoph by mouth en-caff every 4 (FIORICET, hours as ESGIC) needed for 50-325-40 Headache. mg Oral Tablet eszopiclone Yes 3mg Q1D Take 3 mg (LUNESTA) 3 by mouth mg Oral at bedtime Tablet as needed for Sleep. galcanezuma Yes Q4W Give b-gnlm subcutaneo (Emgality us every 4 Pen) 120 weeks. Pt mg/mL is not Subcutaneou sure of s Pen dose. Injector linaCLOtide Yes 145ug Take 145 (LINZESS) mcg by 145 mcg mouth Oral before Capsule breakfast. Do not crush or chew capsule. nitroglycer Yes .4mg Take 0.4 in mg under (NITROSTAT) tongue 0.4 mg every 5 Sublingual minutes as Tablet, needed for Sublingual Chest pain. promethazin No 25mg 25 mg, e Oral, (PHENERGAN) Once, Fri tablet 25 12/29/19 at mg 0500, For 1 dose HYDROmorpho No 2mg 2 mg, ne Oral, (DILAUDID) Once, Fri tablet 2 mg 12/29/19 at 0845, For 1 dose gabapentin No 300mg 300 mg, (NEURONTIN) Oral, capsule 300 Once, Fri mg 12/29/19 at 0500, For 1 dose iopamidoL No 75mL 75 mL, (ISOVUE-370 Intravenou ) 76% s, Once, injection Fri 75 mL 12/29/19 at 0445, For 1 dose, Radiology promethazin No 12.5mg 12.5 mg, e in 0.9 % Intravenou NaCl s, at 200 (PHENERGAN) mL/hr, 12.5 mg/50 Once, Ester mL IVPB 12/28/19 at 12.5 mg 1600, For 1 dose
For IV administra tion: give slowly over 15 minutes preferably in an already infusing line. Avoid injecting into hand or wrist veins and assess for burning and pain with injection. Please contact pharmacy as need.
promethazin No 25mg 25 mg, e Oral, (PHENERGAN) Once, Ester tablet 25 12/28/19 at mg 2315, For 1 dose diphenhydrA No 25mg 25 mg, MINE Oral, (BENADRYL) Once, Ester capsule 25 12/28/19 at mg 2030, For 1 dose prochlorper No 10mg 10 mg, azine Intravenou (COMPAZINE) s, Once, injection Ester 10 mg 12/28/19 at 2030, For 1 dose
Pr otect from light.
HYDROmorpho No 1mg 1 mg, ne Intravenou (DILAUDID) s, Once, 1 mg/mL inj Ester syringe 1 12/28/19 at mg 2030, For 1 dose diphenhydrA No 25mg 25 mg, MINE Intravenou (BENADRYL) s, Once, injection Ester 25 mg 12/28/19 at 1600, For 1 dose
IV Push over 1-2 minutes
HYDROmorpho No .5mg 0.5 mg, ne Intravenou (DILAUDID) s, Once, 1 mg/mL inj Ester syringe 0.5 12/28/19 at mg 1445, For 1 dose promethazin No 12.5mg 12.5 mg, e in 0.9 % Intravenou NaCl s, at 200 (PHENERGAN) mL/hr, 12.5 mg/50 Once, Ester mL IVPB 12/28/19 at 12.5 mg 1330, For 1 dose
For IV administra tion: give slowly over 15 minutes preferably in an already infusing line. Avoid injecting into hand or wrist veins and assess for burning and pain with injection. Please contact pharmacy as need.
aspirin No 324mg 324 mg, chewable Oral, tablet 324 Once, Ester mg 12/28/19 at 1300, For 1 dose
Tablet may be chewed or crushed.
albuterol Yes 2{puff} Q4H Inhale 2 90 inhalation mcg/actuati s into the on inhaler lungs every 4 (four) hours as needed for Shortness of Breath DULoxetine Yes 60mg Q.5D Take 60 mg (CYMBALTA) by mouth [address] (two) capsule times daily galcanezuma Yes 120mg Q28D Inject 120 b-gnlm 120 mg mg/mL PnIj subcutaneo usly every 28 (twenty-ei ght) days linaCLOtide Yes 1{capsu Q24H Take 1 (LINZESS) le} capsule by 145 mcg mouth once capsule daily as needed for Constipati on When MD directs patient to take HYDROmorpho No .25mg 0.25 mg, ne (PF) Intravenou (DILAUDID) s, Once, 0.5 mg/0.5 Wed mL inj 01/17/20 at syringe 1415, For 0.25 mg 1 dose promethazin No 25mg 25 mg, e Oral, (PHENERGAN) Once, Wed tablet 25 01/17/20 at mg 1345, For 1 dose
Pr eviously tolerated per pt
butalbital- No 1{tbl} 1 tablet, acetaminoph Oral, en-caffeine Once, Wed (FIORICET) 01/17/20 at 50-325-40 1130, For mg tablet 1 1 tablet dose
Ma ximum acetaminop hen intake from all sources should not exceed 75 mg/kg OR 4 grams in any 24 hour period, whichever is less.
diphenhydrA No 50mg 50 mg, MINE Intravenou (BENADRYL) s, Once, injection Wed 50 mg 01/17/20 at 0745, For 1 dose
IV Push over 1-2 minutes
promethazin No 12.5mg 12.5 mg, e Intravenou (PHENERGAN) s, Once, injection Wed 12.5 mg 01/17/20 at 0745, For 1 dose
For IV administra tion: Dilute in at least 10 mL of Sodium Chloride.* *
ketorolac No 15mg 15 mg, (TORADOL) Intravenou injection s, Once, 15 mg 01/17/20 at 0745, For 1 dose
The total combined duration of oral and injectable ketorolac must not exceed 5 days
diphenhydrA No 25mg 25 mg, MINE Intravenou (BENADRYL) s, Once, injection Tue 25 mg 01/16/20 at 1915, For 1 dose
IV Push over 1-2 minutes
prochlorper No 10mg 10 mg, azine Intravenou (COMPAZINE) s, Once, injection Tue 10 mg 01/16/20 at 1915, For 1 dose
Pr otect from light.
cyclobenzap 2020- No 10mg QD Take 10 mg rine 10-09 by mouth (FLEXERIL) 00:00 daily. 10 mg Oral :00 Tablet HYDROmorpho 2020- No 4mg Q1D Take 4 mg ne 10-09 by mouth (DILAUDID) 00:00 as needed 4 mg Oral :00 for Pain. Tablet traZODone 2020- No 200mg Take 200 (DESYREL) 06- mg by 100 mg Oral 00:00 mouth at Tablet :00 bedtime. amLODIPine 2020- No Take by (NORVASC) 06- mouth. 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 Active 2020-01-17 to stage 5 to stage 5 01-15 03:59:57 chronic chronic 00:00: kidney kidney 00 disease disease Pre-operati Pre-operati [id number] Active ve ve 6-23 cardiovascu cardiovascu 00:00: lar lar 00 examination examination Type 2 Type 2 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 Active diabetes diabetes 24 mellitus mellitus 00:00: 00 End-stage End-stage 57988248 Active 2020-01-17 renal renal 07-10 03:59:56 disease disease 00:00: 00 Morbid Morbid 44906442 Active obesity-BMI obesity-BMI 5-18 -39 -39 00:00: 00 HLD HLD 72662062 Active (hyperlipid (hyperlipid 5-18 emia) emia) 00:00: 00 [D]Chest [D]Chest Problem suspend pain pain(Confir ed 8-04 (context-de med) 00:00: pendent 00 category) Asthenia Weakness(Co Problem suspend 2008-04 (finding) nfirmed) ed 0-19 00:00: 00 At risk for Fall Problem active falls risk(Confir 01-16 (finding) med) 00:00: 00 Obstructive JOCELIN - Problem suspend sleep apnea Obstructive ed 3-26 syndrome sleep 00:00: (disorder) apnea(Confi 00 rmed) Chest Chest 26486907 Active Pain-Atypic Pain-Atypic 11-06 al al 00:00: 00 Nephrocalci Nephrocalci 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 Active nosis nosis 11-06 00:00: 00 Fibromyalgi Fibromyalgi 04397225 Active a a 11-06 00:00: 00 Hypertensio Hypertensio 37344465 Active 2020-01-17 n, n, 11-06 04:00:40 uncontrolle uncontrolle 00:00: d d 00 Migraine Migraine 25552901 Active 2020-01-17 headache headache 11-06 06:09:07 00:00: 00 Thyroid Thyroid 06957738 Active 2020-01-17 adenoma adenoma 11-06 04:36:16 00:00: 00 Acute pain Acute Problem active (finding) pain(Confir med) Anemia Anemia(Conf Problem suspend (disorder) irmed) ed Hypoglycemi Hypoglycemi Problem suspend a a(Confirmed ed (disorder) ) Alteration Impaired Problem suspend Prob jean paul in patterns urinary ed adde d of urinary elimination a utomatic elimination (Confirmed) ally by (finding) 5 system based on initiati o n of the Impaired Urinary Eliminat i on Plan of Care. Insomnia Insomnia(Co Problem suspend (disorder) nfirmed) ed Numbness Numbness(Co Problem suspend (finding) nfirmed) ed Obesity Obesity(Con Problem suspend (disorder) firmed) ed Surgically Hemodialysi Problem suspend constructed s access, ed arterioveno AV us graft graft(Confi (finding) rmed) Swelling of Left arm Problem suspend upper limb swelling(Co ed (finding) nfirmed) Tachycardia Tachycardia Problem suspend (finding) (Confirmed) ed At risk of At risk for Problem active P roblem infection infection(C ad ded (finding) onfirmed)1 aut omatic ally by system based on initiati o n of the At Risk for Infectio n Plan of Care. Bowel Bowel Problem active Problem dysfunction dysfunction added (disorder) (Confirmed) a utomatic 2 ally by system based on initiati o n of the Bowel Dysfunct i on Plan of Care. Fluid Fluid Problem active Problem balance management( adde d regulation Confirmed)3 a utomatic (procedure) ally by system based on initiati o n of the Fluid Manageme n t Plan o f Care. Impaired Impaired Problem active Proble m skin skin added integrity integrity(C au tomatic (finding) onfirmed)4 all y by system based on initiati o n of the Impaired Skin Integrit y Plan of Care. Not on file Not on file [id number] Diabetes Diabetes 16793371 Active 2020-01-17 mellitus mellitus 03:56:31 without without complicatio complicatio n n Stroke-like Stroke-like 80988141 Active 2020-01-17 symptoms symptoms 21:54:20 Procedures Procedure Date / Time Performed Performing Clinician Jonelle e OFFICE/OUTPATIENT VISIT, EST 2020-02-14 12:55:00 POC GLUCOSE WHOLE BLOOD 2020-01-17 17:38:00 Becki Arevalo POC GLUCOSE WHOLE BLOOD 2020-01-17 17:38:00 Becki Arevalo [id number] 2020-01-17 12:57:43 Martha Andrews [id number] 2020-01-17 12:57:43 Martha Andrews HEMOGLOBIN A1C 2020-01-17 09:28:00 Delfina Howell Amato LIPID PANEL W/CALCULATED LOW 2020-01-17 09:28:00 Delfina Howell DENSITY LIPOPROTEIN (LDL) Aaron CHOLESTEROL LIPID PANEL W/CALCULATED LOW 2020-01-17 09:28:00 Delfina Howelle DENSITY LIPOPROTEIN (LDL) Aaron CHOLESTEROL HEMOGLOBIN A1C 2020-01-17 09:28:00 Delfina Howell Aaron HEMODIALYSIS 2020-01-17 08:56:10 Martha Andrews HEMODIALYSIS 2020-01-17 08:56:10 Martha Andrews VALPROIC ACID LEVEL, (TOTAL & 2020-01-17 01:44:00 Delfina Howell FREE) Aaron [id number] 2020-01-17 00:48:09 Delfina Howell Aaron [id number] 2020-01-17 00:48:09 Delfina Howell Aaron POC BLOOD GASES (DR ONLY) 2020-01-17 00:46:00 Delfina Hwoell ie Aaron POC BLOOD GASES (DR ONLY) 2020-01-17 00:46:00 Delfina Howell ie Aaron ARTERIAL BLOOD GAS EVALUATION 2020-01-17 00:28:13 Delfina Howelle Aaron ARTERIAL BLOOD GAS EVALUATION 2020-01-17 00:28:13 Delfina Howell Aaron POC GLUCOSE WHOLE BLOOD 2020-01-16 23:19:00 Octavio Flores POC GLUCOSE WHOLE BLOOD 2020-01-16 23:19:00 Luangruangrong, Lydi a Darlud COMPREHENSIVE METABOLIC PANEL 2020-01-16 20:49:00 Luangruangrong , Amina (CMP) Darlud PROTHROMBIN TIME (INR) 2020-01-16 20:49:00 Luangruangrong, Amina Darlud ACTIVATED PARTIAL THROMBOPLASTIN 2020-01-16 20:49:00 Luangruangr kierra, Amina TIME (APTT) Darlud COMPLETE BLOOD COUNT (CBC) WITH 2020-01-16 20:49:00 Luangruangro ng, Amina DIFFERENTIAL Darlud TOXICOLOGY (DRUG) SCREEN, URINE 2020-01-16 20:49:00 Cecil Howell [id number] 20:49:00 Luangruangrong, Amina Darlud CORONAVIRUS (COVID-19) 2020-01-16 20:49:00 Luangruangrong, Amina SARS-COV-2 RAPID TEST Darlud UA W/REFLEX MICROSCOPIC (NO 2020-01-16 20:49:00 Luangruangrong, Amina CULTURE) Darlud CORONAVIRUS (COVID-19) 2020-01-16 20:49:00 Luangruangrong, Amina SARS-COV-2 RAPID TEST Darlud COMPREHENSIVE METABOLIC PANEL 2020-01-16 20:49:00 Luangruangrong , Amina (CMP) Darlud COMPLETE BLOOD COUNT (CBC) WITH 2020-01-16 20:49:00 Luangruangro ng, Amina DIFFERENTIAL Darlud UA W/REFLEX MICROSCOPIC (NO 2020-01-16 20:49:00 Luangruangrong, Amina CULTURE) Darlud ACTIVATED PARTIAL THROMBOPLASTIN 2020-01-16 20:49:00 Luangruangr kierra, Amina TIME (APTT) Darlud PROTHROMBIN TIME (INR) 2020-01-16 20:49:00 Luangruangrong, Amina Darlud [id number] 20:49:00 Luangruangrong, Amina Darlud TOXICOLOGY (DRUG) SCREEN, URINE 2020-01-16 20:49:[address] BRAIN WITHOUT CONTRAST 2020-01-16 20:29:57 Luangruangrong, Ly elli Darlud CT CERVICAL SPINE WITHOUT 2020-01-16 20:29:57 Luangruangrong, Ly elli CONTRAST [place]ud CT BRAIN WITHOUT CONTRAST 2020-01-16 20:29:57 Luangruangrong, Ly elli Darlud CT CERVICAL SPINE WITHOUT 2020-01-16 20:29:57 Luangruangrong, Ly elli CONTRAST Darlud [id number] 2020-01-16 19:12:17 Luangruangrong, Amina Darlud [id number] 2020-01-16 19:12:17 Luangruangrong, Amina Darlud UT ELECTROCARDIOGRAM REPORT 2020-01-16 19:04:28 Luangruangrong, Maina Darlud UT ELECTROCARDIOGRAM REPORT 2020-01-16 19:04:28 Luangruangrong, Amina Darlud POC GLUCOSE WHOLE BLOOD 2020-01-16 19:04:00 Luangruangrong, Lydi a Darlud POC GLUCOSE WHOLE BLOOD 2020-01-16 19:04:00 Luangruangrong, Lydi a Darlud [id number] 5821-09-23 00:00:00 Provider, On-File OFFICE/OUTPATIENT VISIT, EST 2020-01-01 12:45:00 POC CORONAVIRUS (COVID-19) 2019-12-29 06:38:00 Tip Huang SARS-COV-2 RAPID TEST POC CORONAVIRUS (COVID-19) 2019-12-29 06:38:00 Tip Huang SARS-COV-[address] CHEST PE PROTOCOL INCL CT 2019-12-29 04:52:24 Esa Geronimo CHEST ANGIOGRAM W WO CONTRAST LIPASE 2019-12-28 23:12:00 Esa Geronimo LIPASE 2019-12-28 23:12:00 Esa Geronimo TROPONIN T, HIGH SENSITIVITY 2019-12-28 16:35:00 Chi Johansen THREE HOUR TROPONIN T, HIGH SENSITIVITY 2019-12-28 16:35:00 Chi Johansen THREE HOUR 509 2019-12-28 16:09:36 Chi Johansen UT ELECTROCARDIOGRAM REPORT 2019-12-28 16:09:36 Chi Johansen UT ELECTROCARDIOGRAM REPORT 2019-12-28 14:41:53 Chi Johansen HC EKG 12 LEAD TRACE ONLY 2019-12-28 14:41:53 Chi Johansen ph TROPONIN T, HIGH SENSITIVITY ONE 2019-12-28 14:36:00 Marilynn Johansen HOUR (LO) TROPONIN T, HIGH SENSITIVITY ONE 2019-12-28 14:36:00 Marilynn Johansen HOUR (LO) BASIC METABOLIC PANEL (BMP) 2019-12-28 13:31:00 Chi Johansen COMPLETE BLOOD COUNT (CBC) 2019-12-28 13:31:00 Chi Johansen eph PROTHROMBIN TIME (INR) 2019-12-28 13:31:00 Chi Johansen ACTIVATED PARTIAL THROMBOPLASTIN 2019-12-28 13:31:00 Marilynn Johansen TIME (APTT) TROPONIN T, HIGH SENSITIVITY ED 2019-12-28 13:31:00 Marcelino Johansen EVALUATION TROPONIN T, HIGH SENSITIVITY ED 2019-12-28 13:31:00 Marcelino Johansen EVALUATION ACTIVATED PARTIAL THROMBOPLASTIN 2019-12-28 13:31:00 Marilynn Johansen TIME (APTT) PROTHROMBIN TIME (INR) 2019-12-28 13:31:00 Chi Johansen COMPLETE BLOOD COUNT (CBC) 2019-12-28 13:31:00 Chi Johansen eph BASIC METABOLIC PANEL (BMP) 2019-12-28 13:31:00 Chi Johansen UT ELECTROCARDIOGRAM REPORT 2019-12-28 12:55:35 Chi Johansen UT ELECTROCARDIOGRAM REPORT 2019-12-28 12:55:35 Chi Johansen seph UT ELECTROCARDIOGRAM REPORT 2019-12-28 08:51:27 Marlin Adam UT ELECTROCARDIOGRAM REPORT 2019-12-28 08:51:27 Marlin Adam XR CHEST PA AND LATERAL 2019-12-28 08:40:50 Marlin Adam XR CHEST PA AND LATERAL 2019-12-28 08:40:50 Marlin Adam CYTOMEGALOVIRUS (CMV) ANTIBODY, 2019-12-28 08:33:00 Ruslan Adam IGG CYTOMEGALOVIRUS (CMV) ANTIBODY, 2019-12-28 08:33:00 Ruslan Adam IGM HIV-1 AND HIV-2 ANTIBODY, 2019-12-28 08:33:00 Marlin Adam COMBINED VARICELLA ZOSTER ANTIBODY, IGG 2019-12-28 08:33:00 Chacha Adam ALBUMIN 2019-12-28 08:33:00 Marlin Adam CREATININE 2019-12-28 08:33:00 Marlin Adam VALENTÍN [place] VIRUS ANTIBODIES 2019-12-28 08:33:00 Marlin Adam HEPATITIS B SURFACE ANTIBODY 2019-12-28 08:33:00 Marlin Adam HEPATITIS B SURFACE ANTIGEN 2019-12-28 08:33:00 Marlin Adam HCV ANTIBODY TESTING WITH REFLEX 2019-12-28 08:33:00 Kian Adam TO VIRAL LOAD PCR HC HEPATITIS A AB 2019-12-28 08:33:00 Marlin Adam RUBEOLA ANTIBODIES, IGG 2019-12-28 08:33:00 Marlin Adam MUMPS ANTIBODIES, IGG ONLY 2019-12-28 08:33:00 Marlin Adam HLA CLASS I TYPING LOW 2019-12-28 08:33:00 Marlin Adam RESOLUTION HLA CLASS II TYPING LOW 2019-12-28 08:33:00 Marlin Adam RESOLUTION HLA FLOW PRA SCREEN PRE 2019-12-28 08:33:00 Marlin Adam TRANSPLANT HEMOGLOBIN A1C 2019-12-28 08:33:00 Marlin Adam TYPE AND SCREEN 2019-12-28 08:33:00 Marlin Adam HLA ANTIBODY SPECIFICITY CLASS 2019-12-28 01:00:00 Chacha Adam II (LO) REQUEST FOR IMAGE LIBRARY 2019-12-06 22:25:29 Marlin Adam SERVICES REQUEST FOR IMAGE LIBRARY 2019-12-06 22:25:29 Marlin Adam SERVICES Removal Peritoneal Dialysis 2019-11-10 09:53:00 Catheter (NA)1 Removal Peritoneal Dialysis 2019-11-10 09:53:00 Catheter (NA)1 OFFICE/OUTPATIENT VISIT EST 2019-11-02 10:15:00 THER/PROPH/DIAG INJ.,SC/IM 2019-11-02 10:15:00 ECHO 2019-10-10 09:06:31 Tre Hahn EKG 12 LEAD 2019-10-10 09:00:21 Tre Hahn GLUCOSE, GLUCOMETER 2019-10-10 08:57:00 Margo Baca EKGSCAN 2019-10-10 00:00:00 Unassigned, Unknown BASIC METABOLIC PANEL 2019-10-07 11:01:00 Tre Hahn PT (PROTHROMBIN TIME) WITH INR 2019-10-07 11:01:00 Jaycob Hahn CBC WITHOUT DIFFERENTIAL 2019-10-07 11:01:00 Tre Hahn k COVID-19 ROUTINE ([facility]) 2019-10-07 10:40:00 Margo Baca [id number] 1585-06-03 00:00:00 Marlin Adam [id number] 9031-06-03 00:00:00 Marlin Adam AV Graft Thrombectomy Revision 2019-03-02 08:56:00 (Right)2 AV Graft (Right)3 2018-11-24 14:37:00 AV Graft Thrombectomy Revision 2018-11-09 14:04:00 (Left)4 Laparoscopic Insertion 2018-11-07 11:48:00 Peritoneal Dialysis Catheter (NA)5 Jake AV Fistula (Left)6 2018-11-02 17:48:00 Insertion Peritoneal Dialysis 2018-09-26 09:08:00 Catheter (Open) (NA)7 URINALYSIS, COMPLETE 2018-08-24 18:08:00 Matt Lockett PROTEIN/CREATININE RATIO, URINE 2018-08-24 18:08:00 Unassign, Do ctor PHOSPHORUS 2018-08-24 18:07:00 Matt Lockett IRON 2018-08-24 18:07:00 Matt Lockett FERRITIN 2018-08-24 18:07:00 Matt Lockett CBC WITH DIFF 2018-08-24 18:07:00 Matt Lockett BASIC METABOLIC PANEL 2018-08-24 18:07:00 Matt Lockett TOTAL IRON BINDING CAPACITY 2018-08-24 18:07:00 Matt Lockett (TIBC) INTACT PTH - SERUM 2018-08-24 18:07:00 Matt Lockett URINALYSIS, COMPLETE 2018-07-06 14:11:00 Reina Aly COMPREHENSIVE METABOLIC PANEL 2018-07-06 14:11:00 Reina Aly PHOSPHORUS 2018-07-06 14:11:00 Reina Aly IRON 2018-07-06 14:11:00 Reina Aly TRANSFERRIN 2018-07-06 14:11:00 Reina Aly CBC WITH DIFF 2018-07-06 14:11:00 Reina Aly HEMOGLOBIN A1C (GLYCOSYLATED) 2018-07-06 14:11:00 Reina Aly LIPID PANEL 2018-07-06 14:11:00 Reina Aly TOTAL IRON BINDING CAPACITY 2018-07-06 14:11:00 Reina Aly (TIBC) URINALYSIS, COMPLETE 2018-04-29 15:52:00 Sheeba Reina PHOSPHORUS 2018-04-29 15:52:00 Reina Aly MAGNESIUM 2018-04-29 15:52:00 Reina Aly HEMOGLOBIN 2018-04-29 15:52:00 Reina Aly HEMATOCRIT 2018-04-29 15:52:00 Reina Aly INTACT PTH - SERUM 2018-04-29 15:52:00 Reina Aly URINALYSIS, COMPLETE 2018-03-16 15:14:00 Reina Aly COMPREHENSIVE METABOLIC PANEL 2018-03-16 15:14:00 Reina Aly PHOSPHORUS 2018-03-16 15:14:00 SheebaReina MAGNESIUM 2018-03-16 15:14:00 Reina Aly CBC WITHOUT DIFF 2018-03-16 15:14:00 Reina Aly INTACT PTH - SERUM 2018-03-16 15:14:00 Reina Aly [id number] 0750-04-26 00:00:00 Marlin Adam [id number] 8517-04-26 00:00:00 Marlin Adam Replacement Shoulder IPO (Left)8 2016-12-22 09:18:00 Arthroscopy Shoulder w/Cartiform 2016-08-03 16:20:00 Implant (Left)9 Shoulder Arthroscopy (Left)10 2015-12-26 14:06:00 Arthroscopy of knee11 2015-07-19 00:00:00 Appendectomy Cholecystectomy Fracture dislocation of ankle Hysterectomy Insertion of Port-a-cath Results Test Description Test Time Test Comments Text Results Atomic Results Result Comments Valproic Acid Level, (Total & Free) 2020-01-18 19:35:00 Test Item Value Reference Range Comments Valproic Acid (Depakote),Serum <4 50-100 * *Verified by repeat (test code = 76779108) analysis* * Detection Limi t = 4 <4 indicates Non e Detected Toxicity may occ ur at levels of 100-500. Michael urements of free unbound hellen proic acid may improve the asse ss- ment of clinical respons e. Free Valproic Acid (Depakote), None Detected 6-22 D etection Limit = 0.5 Serum (test code = 25475929) HORACIO (test code = HORACIO) Lab Interpretation (test code = Abnormal 25802-3) POC Glucose Whole [id number] 17:45:00 Test Item Value Reference Range Comments POC Glucose (test code = 78 mg/dL 70-140 ALERT V ALUES <50 [place] 07403-0) >250 Others <70 or >350 Performed at [facility]; overseen [facility] POCT program REFERENC E RANGES Above is NONFAST ING. Below are FASTING: NOR MAL: 70-99 mg/dL P REDIABETES: 100-125 mg/dL DIABETES: > 125 mg/dL R anges for neonates are dep endent on gestational age and weight. HORACIO (test code = HORACIO) Lab Interpretation (test code = Normal 09805-4) POC Glucose Whole [id number] 17:45:00 Test Item Value Reference Range Comments POC Glucose (test code = 78 mg/dL 70-140 ALERT V ALUES <50 [place] 89256-1) >250 Others <70 or >350 Performed at [facility]; overseen b y [facility] POCT program REFERENC E RANGES Above is NONFAST ING. Below are FASTING: NOR MAL: 70-99 mg/dL P REDIABETES: 100-125 mg/dL DIABETES: > 125 mg/dL R anges for neonates are dep endent on gestational age and weight. HORACIO (test code = HORACIO) Lab Interpretation (test code = Normal 07018-3) Hemoglobin [id number] 15:07:00 Test Item Value Reference Range Comments Hemoglobin A1C (test code = 4548-4) 4.3 % <6.5 Average Blood Glucose (Calculated From HgBA1c 70 mg/dL Level) (test code = 36085-2) HORACIO (test code = HORACIO) Hemoglobin [id number] 15:07:00 Test Item Value Reference Range Comments Hemoglobin A1C (test code = 4548-4) 4.3 % <6.5 Average Blood Glucose (Calculated From HgBA1c 70 mg/dL Level) (test code = 21843-3) HORACIO (test code = HORACIO) Lipid Panel W/Calculated Low Density Lipoprotein (LDL) [id number] 10:35:00 Test Item Value Reference Range Comments Cholesterol, Total (test code 258 mg/dL Th e significance of total = 2093-3) cholesterol depe nds on the values of indivi dual components inclu ding HDL, LDL, non-HDL, and tri glycerides. LDL Calculated (test code = 148 mg/dL <190 <70 mg/dL Desired 35740-0) target for prior heart disease, stroke, and those at high-risk. Even lower levels may be recommend ed to decrease risk of heart at tack and stroke. 70-159 m g/dL Comprehensive ca rdiovascular risk assessment is recommended. Sta tin therapy may be advised b ased on risk factors. 160-189 mg/dL Moderately nita vated LDL level. Statin th erapy recommended if o ther risk factors present. >=190 mg/dL Severely el evated LDL level. High long -term risk of heart disease an d stroke. High-intensity s tatin therapy recommended for most people. Consider special ist referral. *A healthy t and exercise are recommended for all to reduce heart dis ease risk. Statin choice sh ould be based on patient prefe rence after patient-provider discussions. Ref: 2018 ACC /AHA Guideline HDL (test code = 2085-9) 86 mg/dL People with low HDL levels (see below) are at increased risk of heart di sease: <50 mg/dL for Women <40 mg/dL for Men Triglyceride (test code = 121 mg/dL <500 <150 m g/dL Normal 2571-8) 150-499 mg/dL High Triglycerides. R isk of heart disease may be i ncreased. Address reversib le causes (eg sugar in foods a nd beverages, alcohol, and elli betes control). Medica tion may be appropriate base d on other clinical factors . >=500 mg/dL Very High Triglycerides. Risk of heart di sease and pancreatitis inc reased. Address reversib le causes as above. Medicatio n to lower triglycerides us ually advised. *Ranges provided for adults, pediatric guidel maria victoria vary. Lipid Panel W/Calculated Low Density Lipoprotein (LDL) [id number] 10:35:00 Test Item Value Reference Range Comments Cholesterol, Total (test code 258 mg/dL Th e significance of total = 2093-3) cholesterol depe nds on the values of indivi dual components inclu ding HDL, LDL, non-HDL, and tri glycerides. LDL Calculated (test code = 148 mg/dL <190 <70 mg/dL Desired 18432-7) target for prior heart disease, stroke, and those at high-risk. Even lower levels may be recommend ed to decrease risk of heart at tack and stroke. 70-159 m g/dL Comprehensive ca rdiovascular risk assessment is recommended. Sta tin therapy may be advised b ased on risk factors. 160-189 mg/dL Moderately nita vated LDL level. Statin th erapy recommended if o ther risk factors present. >=190 mg/dL Severely el evated LDL level. High long -term risk of heart disease an d stroke. High-intensity s tatin therapy recommended for most people. Consider special ist referral. *A healthy t and exercise are recommended for all to reduce heart dis ease risk. Statin choice sh ould be based on patient prefe rence after patient-provider discussions. Ref: 2018 ACC /AHA Guideline HDL (test code = 2085-9) 86 mg/dL People with low HDL levels (see below) are at increased risk of heart di sease: <50 mg/dL for Women <40 mg/dL for Men Triglyceride (test code = 121 mg/dL <500 <150 m g/dL Normal 2571-8) 150-499 mg/dL High Triglycerides. R isk of heart disease may be i ncreased. Address reversib le causes (eg sugar in foods a nd beverages, alcohol, and elli betes control). Medica tion may be appropriate base d on other clinical factors . >=500 mg/dL Very High Triglycerides. Risk of heart di sease and pancreatitis inc reased. Address reversib le causes as above. Medicatio n to lower triglycerides us ually advised. *Ranges provided for adults, pediatric guidel maria victoria vary. POC Blood Gases (DR and DRAH Only)2020-01-17 01:03:00 Test Item Value Reference Range Comments POC pH, Arterial (test code = 7.356 7.350-7.450 Pl ease note that the [id number]) above listed ref erence range is for ART ERIAL samples only. CA PILLARY sample reference range is shown below: CAPILLARY REFERENCE RANGE (PH): 7.32-7.46 POC PCO2, Arterial (test code = 44.2 35.0 - 45.0 mmHg Please note that the 32977636) above listed ref erence range is for ART ERIAL samples only. CA PILLARY sample reference range is shown below: CAPILLARY REFERENCE RANGE (PCO2): 31-47 mmHg POC PO2, Arterial (test code = 72 80 - 105 mmHg P lease note that the 14483901) above listed ref erence range is for ART ERIAL samples only. CA PILLARY sample reference range is shown below: CAPILLARY REFERENCE RANGE (PO2): 40-60 mmHg POC HCO3, Arterial (test code = 24.7 mmol/L 22-26 Please note that the 31939044) above listed ref erence range is for ART ERIAL samples only. CA PILLARY sample reference range is shown below: CAPILLARY REFERENCE RANGE (HCO3): 18-27 mmol/L POC Base Excess, Arterial (test -1 mmol/L -2-3 code = 55730863) POC O2 Saturation, Arterial 93 % 95-98 (test code = 70647444) POC TCO2, Arterial (test code = 26 mmol/L 23-27 59737643) POC MODL, Arterial (test code = Room Air 05287573) POC Collection Site, Arterial R RAD (test code = 52742989) POC Collected By, Arterial RT (test code = 87398940) POC Becki's Test, ARTERIAL PASS (test code = 19126500) POC Specimen Source, Arterial ART (test code = 32783012) HORACIO (test code = HORACIO) Lab Interpretation (test code = Abnormal 45734-5) POC Blood Gases (DRH and DRAH Only)2020-01-17 01:03:00 Test Item Value Reference Range Comments POC pH, Arterial (test code = 7.356 7.350-7.450 Pl ease note that the 23338786) above listed ref erence range is for ART ERIAL samples only. CA PILLARY sample reference range is shown below: CAPILLARY REFERENCE RANGE (PH): 7.32-7.46 POC PCO2, Arterial (test code = 44.2 35.0 - 45.0 mmHg Please note that the 17431901) above listed ref erence range is for ART ERIAL samples only. CA PILLARY sample reference range is shown below: CAPILLARY REFERENCE RANGE (PCO2): 31-47 mmHg POC PO2, Arterial (test code = 72 80 - 105 mmHg P lease note that the 27272299) above listed ref erence range is for ART ERIAL samples only. CA PILLARY sample reference range is shown below: CAPILLARY REFERENCE RANGE (PO2): 40-60 mmHg POC HCO3, Arterial (test code = 24.7 mmol/L 22-26 Please note that the [id number]) above listed ref erence range is for ART ERIAL samples only. [place] [facility] sample reference range is shown below: CAPILLARY REFERENCE RANGE (HCO3): 18-27 mmol/L POC Base Excess, Arterial (test -1 mmol/L -2-3 code = [id number]) POC O2 Saturation, Arterial 93 % 95-98 (test code = [id number]) POC TCO2, Arterial (test code = 26 mmol/L 23-27 [id number]) POC MODL, Arterial (test code = Room Air [id number]) POC Collection Site, Arterial R RAD (test code = 32098140) POC Collected By, Arterial RT (test code = 28310515) POC Becki's Test, ARTERIAL PASS (test code = 54414011) POC Specimen Source, Arterial ART (test code = 59002889) HORACIO (test code = HORACIO) Lab Interpretation (test code = Abnormal 18728-6) Toxicology (Drug) Screen, [id number] 00:31:00 Test Item Value Reference Range Comments Amphetamine/Methamphetamine, Urine (test code = Negative Negative 91660-2) Barbiturates, Urine (test code = 3377-9) Positive Negativ e Benzodiazepine, Urine (test code = 63766-0) Positive Nega tive Cocaine Metabolites, Urine (test code = 51239-6) Negative Negative Opiates, Urine (test code = 87378-8) Negative Negative Tetrahydrocannabinol (THC), Urine (test code = Negative N egative 51894-3) HORACIO (test code = HORACIO) Lab Interpretation (test code = 24266-1) Abnormal Toxicology (Drug) Screen, [id number] 00:31:00 Test Item Value Reference Range Comments Amphetamine/Methamphetamine, Urine (test code = Negative Negative 06232-4) Barbiturates, Urine (test code = 3377-9) Positive Negativ e Benzodiazepine, Urine (test code = 42789-5) Positive Nega tive Cocaine Metabolites, Urine (test code = 91276-2) Negative Negative Opiates, Urine (test code = 32721-7) Negative Negative Tetrahydrocannabinol (THC), Urine (test code = Negative N egative 83870-5) HORACIO (test code = HORACIO) Lab Interpretation (test code = 41883-5) Abnormal POC Glucose Whole [id number] 23:21:00 Test Item Value Reference Range Comments POC Glucose (test code = 100 mg/dL 70-140 ALERT V ALUES <50 [place] 78663-6) >250 Others <70 or >350 Performed at [facility]; overseen b y [facility] POCT program REFERENC E RANGES Above is NONFAST ING. Below are FASTING: NOR MAL: 70-99 mg/dL P REDIABETES: 100-125 mg/dL DIABETES: > 125 mg/dL R anges for neonates are dep endent on gestational age and weight. HORACIO (test code = HORACIO) Lab Interpretation (test code = Normal 94482-8) Comprehensive Metabolic Panel (CMP)2020-01-16 21:49:00 Test Item Value Reference Range Comments Sodium (test code = 2951-2) 142 mmol/L 135-145 Potassium (test code = 2823-3) 3.4 mmol/L 3.5-5 Chloride (test code = 2075-0) 106 mmol/L 98-108 Carbon Dioxide (CO2) (test 25 mmol/L - code = 8-9) Urea Nitrogen (BUN) (test code 35 mg/dL 7-20 = 3094-0) Creatinine (test code = 4.4 mg/dL 0.4-1 2160-0) Glucose (test code = 2345-7) 91 mg/dL 70-140 Int erpretive Data: Above is the NONFASTING r eference range. Below are the FASTING reference ranges : NORMAL: 70-99 mg/dL PREDIABETES: 100 -125 mg/dL DIABETES: > 125 mg/dL Calcium (test code = 52376-6) 9.0 mg/dL 8.7-10.2 AST (Aspartate 18 U/L 15-41 Aminotransferase) (test code = 1920-8) ALT (Alanine Aminotransferase) 27 U/L 14-54 (test code = 1742-6) Bilirubin, Total (test code = 0.6 mg/dL 0.4-1.5 1974-2) Alk Phos (Alkaline 192 U/L 24-110 Phosphatase) (test code = 6768-6) Albumin (test code = 1751-7) 3.5 g/dL 3.5-4.8 Protein, Total (test code = 6.9 g/dL 6.2-8.1 2885-2) Anion Gap (test code = 11 mmol/L 3-12 92263-3) BUN/CREA Ratio (test code = 8 6- 35592952) Glomerular Filtration Rate 12 mL/min/1.73sq m Inter pretive Ranges eGFR (eGFR) (test code = 54625-9) (C KD-EPI): eGFR: > 60 mL/min/1.73 s q m - Normal eGFR: 30 - 59 mL/min/1.73 sq m - Moderately Decre ased eGFR: 15 - 29 mL/min/1.73 sq m - Severely Decreased eGFR: < 15 mL/min/1.73 sq m - Kidney Failure Note: [facility] GFR calculations do not apply in acute situations when GFR is changing rapidly or in patients on dial ysis. Lab Interpretation (test code Abnormal = 12924-1) Comprehensive Metabolic Panel (CMP)2020-01-16 21:49:00 Test Item Value Reference Range Comments Sodium (test code = 2951-2) 142 mmol/L 135-145 Potassium (test code = 2823-3) 3.4 mmol/L 3.5-5 Chloride (test code = 2075-0) 106 mmol/L 98-108 Carbon Dioxide (CO2) (test 25 mmol/L 21-30 code = 8-9) Urea Nitrogen (BUN) (test code 35 mg/dL 7-20 = 3094-0) Creatinine (test code = 4.4 mg/dL 0.4-1 2160-0) Glucose (test code = 2345-7) 91 mg/dL 70-140 Int erpretive Data: Above is the NONFASTING r eference range. Below are the FASTING reference ranges : NORMAL: 70-99 mg/dL PREDIABETES: 100 -125 mg/dL DIABETES: > 125 mg/dL Calcium (test code = 93181-4) 9.0 mg/dL 8.7-10.2 AST (Aspartate 18 U/L 15-41 Aminotransferase) (test code = 1920-8) ALT (Alanine Aminotransferase) 27 U/L 14-54 (test code = 1742-6) Bilirubin, Total (test code = 0.6 mg/dL 0.4-1.5 1974-2) Alk Phos (Alkaline 192 U/L 24-110 Phosphatase) (test code = 6768-6) Albumin (test code = 1751-7) 3.5 g/dL 3.5-4.8 Protein, Total (test code = 6.9 g/dL 6.2-8.1 2885-2) Anion Gap (test code = 11 mmol/L 3-12 36060-3) BUN/CREA Ratio (test code = 8 6-27 76371998) Glomerular Filtration Rate 12 mL/min/1.73sq m Inter pretive Ranges eGFR (eGFR) (test code = 99043-8) (C KD-EPI): eGFR: > 60 mL/min/1.73 s q m - Normal eGFR: 30 - 59 mL/min/1.73 sq m - Moderately Decre ased eGFR: 15 - 29 mL/min/1.73 sq m - Severely Decreased eGFR: < 15 mL/min/1.73 sq m - Kidney Failure Note: [facility] G[facility] calculations do not apply in acute situations when GFR is changing rapidly or in patients on dial ysis. Lab Interpretation (test code Abnormal = 92042-4) UA w/reflex Microscopic (no culture)2020-01-16 21:37:00 Test Item Value Reference Range Comments Color (test code = 5778-6) Yellow Colorless, Straw, Lig ht Yellow, Yellow, Dark Yellow Clarity (test code = 81571-1) Clear Clear Specific Jay (test code = 1.011 1.005-1.030 2965-2) pH, Urine (test code = 2756-5) 7.0 5.0-8.0 Protein, Urinalysis (test code = 2+ Negative 2887-8) Glucose, Urinalysis (test code = Negative Negative 2349-9) Ketones, Urinalysis (test code = Negative Negative 37003-0) Blood, Urinalysis (test code = Negative Negative 16962-4) Nitrite, Urinalysis (test code = Negative Negative 25951-6) Leukocytes, Urinalysis (test code = Negative Negative 96951-2) Bilirubin, Urinalysis (test code = Negative Negative 1976-8) Urobilinogen, Urinalysis (test code 0.2 mg/dL 0.2-1 = 3107-0) Lab Interpretation (test code = Abnormal 41337-9) UA [id number] 21:37:00 Test Item Value Reference Range Comments Red Blood Cells, Urinalysis 1 <=3 /hpf (test code = 04122-9) WBC, UA (test code = 5821-4) 4 <=5 /hpf Squamous Epithelial Cells, 8 /hpf Urinalysis (test code = 09932-6) Hyaline Casts (test code = 4 /lpf Occas ional hyaline casts may 53375209) be found in norm al urine. Bacteria, Urinalysis (test code 5-50 0 - 5 /hpf = 5769-5) Lab Interpretation (test code = Abnormal 10673-3) UA [id number] 21:37:00 Test Item Value Reference Range Comments Red Blood Cells, Urinalysis 1 <=3 /hpf (test code = 99602-1) WBC, UA (test code = 5821-4) 4 <=5 /hpf Squamous Epithelial Cells, 8 /hpf Urinalysis (test code = 97968-5) Hyaline Casts (test code = 4 /lpf Occas ional hyaline casts may 80246861) be found in norm al urine. Bacteria, Urinalysis (test code 5-50 0 - 5 /hpf = 5769-5) Lab Interpretation (test code = Abnormal 43366-2) UA w/reflex Microscopic (no culture)2020-01-16 21:37:00 Test Item Value Reference Range Comments Color (test code = 5778-6) Yellow Colorless, Straw, Lig ht Yellow, Yellow, Dark Yellow Clarity (test code = 30628-2) Clear Clear Specific Jay (test code = 1.011 1.005-1.030 2965-2) pH, Urine (test code = 2756-5) 7.0 5.0-8.0 Protein, Urinalysis (test code = 2+ Negative 2887-8) Glucose, Urinalysis (test code = Negative Negative 2349-9) Ketones, Urinalysis (test code = Negative Negative 20120-3) Blood, Urinalysis (test code = Negative Negative 06772-6) Nitrite, Urinalysis (test code = Negative Negative 69479-8) Leukocytes, Urinalysis (test code = Negative Negative 23454-9) Bilirubin, Urinalysis (test code = Negative Negative 1976-8) Urobilinogen, Urinalysis (test code 0.2 mg/dL 0.2-1 = 3107-0) Lab Interpretation (test code = Abnormal 43999-1) Coronavirus (COVID-19) SARS-CoV-2 Rapid [id number] 21:36:00 Test Item Value Reference Range Comments Coronavirus (COVID-19) SARS-CoV-2 Rapid Test Not Detected Not Detected (test code = 69713-9) HORACIO (test code = HORACIO) Lab Interpretation (test code = 99706-3) Normal Coronavirus (COVID-19) SARS-CoV-2 Rapid [id number] 21:36:00 Test Item Value Reference Range Comments Coronavirus (COVID-19) SARS-CoV-2 Rapid Test Not Detected Not Detected (test code = 01614-6) HORACIO (test code = HORACIO) Lab Interpretation (test code = 61849-7) Normal Activated Partial Thromboplastin Time (APTT)2020-01-16 21:29:00 Test Item Value Reference Range Comments Act Partial Thromboplastin Time 37.0 26.8 - 37.1 sec Therapeutic Range (Heparin) = (test code = 47415-0) 65-95 seco nds Note: The therapeutic rang e for Heparin has been determi noam using ex-vivo whole bl ood samples and therapeutic Heparin level of 0.30-0.70 ant i-factor Xa units. Lab Interpretation (test code = Normal 02772-8) Prothrombin Time (INR)2020-01-16 21:29:00 Test Item Value Reference Range Comments Prothrombin Time (test code = 11.1 9.5 - 13.1 sec 5902-2) Prothrombin INR (test code = 0.9 0.9-1.1 Ref erence Ranges: DVT/PE/PVD 6301-6) = INR 2.0 - 3.0 Mechanical Heart Valve = IN R 2.5 - 3.5 NOTE: The INR is not a PT Ratio and is hellen id only for Coumadin patient s Lab Interpretation (test code = Normal 44932-7) Prothrombin Time (INR)2020-01-16 21:29:00 Test Item Value Reference Range Comments Prothrombin Time (test code = 11.1 9.5 - 13.1 sec 5902-2) Prothrombin INR (test code = 0.9 0.9-1.1 Ref erence Ranges: DVT/PE/PVD 6301-6) = INR 2.0 - 3.0 Mechanical Heart Valve = IN R 2.5 - 3.5 NOTE: The INR is not a PT Ratio and is hellen id only for Coumadin patient s Lab Interpretation (test code = Normal 59152-7) Activated Partial Thromboplastin Time (APTT)2020-01-16 21:29:00 Test Item Value Reference Range Comments Act Partial Thromboplastin Time 37.0 26.8 - 37.1 sec Therapeutic Range (Heparin) = (test code = 56645-0) 65-95 seco nds Note: The therapeutic rang e for Heparin has been determi noam using ex-vivo whole bl ood samples and therapeutic Heparin level of 0.30-0.70 ant i-factor Xa units. Lab Interpretation (test code = Normal 99730-2) Complete Blood Count (CBC) with [id number] 21:22:00 Test Item Value Reference Range Comments WBC (White Blood Cell Count) (test code = 4.7 3.2 - 9.8 x10 9 15024-4) /L Hemoglobin (test code = 718-7) 9.2 g/dL 12-15.5 Hematocrit (test code = 4544-3) 28.2 % 35-45 Platelets (test code = 23249-3) 216 150 - 45 0 x10 9 /L MCV (Mean Corpuscular Volume) (test code = 99 fL 80-98 787-2) MCH (Mean Corpuscular Hemoglobin) (test code 32.4 pg 26. 5-34 = 785-6) MCHC (Mean Corpuscular Hemoglobin 32.6 % 31.4-36 Concentration) (test code = 786-4) RBC (Red Blood Cell Count) (test code = 2.84 3.77 - 5.16 x10 1 33123-0) 2/L RDW-CV (Red Cell Distribution Width) (test 15.5 % 11.5- 14.5 code = 90226-2) NRBC (Nucleated Red Blood Cell Count) (test 0.00 0 x10 9 code = 20638-9) /L NRBC % (Nucleated Red Blood Cell %) (test 0.0 % code = 54401-2) MPV (Mean Platelet Volume) (test code = 10.2 fL 7.2-11.7 55186311) Neutrophil Count (test code = 32256-3) 2.5 2 .0 - 8.6 x10 9 /L Neutrophil % (test code = 31030-8) 52.3 % 37-80 Lymphocyte Count (test code = 00877-2) 1.5 0 .6 - 4.2 x10 9 /L Lymphocyte % (test code = 44514-6) 32.5 % 10-50 Monocyte Count (test code = 11833-3) 0.5 0 - 0.9 x10 9 /L Monocyte % (test code = 13049-7) 10.8 % 0-12 Eosinophil Count (test code = 711-2) 0.13 0 - 0.70 x10 9 /L Eosinophil % (test code = 80766-8) 2.7 % 0-7 Basophil Count (test code = 704-7) 0.03 0 - 0 .20 x10 9 /L Basophil % (test code = 706-2) 0.6 % 0-2 Immature Granulocyte Count (test code = 0.05 <=0.06 x10 9 27759-9) /L Immature Granulocyte % (test code = 60349-2) 1.1 % <=0 .7 Lab Interpretation (test code = 05144-8) Abnormal Complete Blood Count (CBC) with [id number] 21:22:00 Test Item Value Reference Range Comments WBC (White Blood Cell Count) (test code = 4.7 3.2 - 9.8 x10 9 52730-0) /L Hemoglobin (test code = 718-7) 9.2 g/dL 12-15.5 Hematocrit (test code = 4544-3) 28.2 % 35-45 Platelets (test code = 82643-7) 216 150 - 45 0 x10 9 /L MCV (Mean Corpuscular Volume) (test code = 99 fL 80-98 787-2) MCH (Mean Corpuscular Hemoglobin) (test code 32.4 pg 26. 5-34 = 785-6) MCHC (Mean Corpuscular Hemoglobin 32.6 % 31.4-36 Concentration) (test code = 786-4) RBC (Red Blood Cell Count) (test code = 2.84 3.77 - 5.16 x10 1 04302-4) 2/L RDW-CV (Red Cell Distribution Width) (test 15.5 % 11.5- 14.5 code = 81654-2) NRBC (Nucleated Red Blood Cell Count) (test 0.00 0 x10 9 code = 33112-3) /L NRBC % (Nucleated Red Blood Cell %) (test 0.0 % code = 19458-6) MPV (Mean Platelet Volume) (test code = 10.2 fL 7.2-11.7 91586049) Neutrophil Count (test code = 47785-7) 2.5 2 .0 - 8.6 x10 9 /L Neutrophil % (test code = 93657-1) 52.3 % 37-80 Lymphocyte Count (test code = 99308-5) 1.5 0 .6 - 4.2 x10 9 /L Lymphocyte % (test code = 48602-6) 32.5 % 10-50 Monocyte Count (test code = 57062-8) 0.5 0 - 0.9 x10 9 /L Monocyte % (test code = 88283-4) 10.8 % 0-12 Eosinophil Count (test code = 711-2) 0.13 0 - 0.70 x10 9 /L Eosinophil % (test code = 01964-5) 2.7 % 0-7 Basophil Count (test code = 704-7) 0.03 0 - 0 .20 x10 9 /L Basophil % (test code = 706-2) 0.6 % 0-2 Immature Granulocyte Count (test code = 0.05 <=0.06 x10 9 22195-5) /L Immature Granulocyte % (test code = 23775-8) 1.1 % <=0 .7 Lab Interpretation (test code = 30820-1) Abnormal CT brain without [id number] 20:38:22EXAM: Unenhanced cervical spine and Head CT. INDICATION: Stroke symptoms, neck pain, neck injury, midline tenderness. TECHNIQUE: Serial axial images of the head were obtained. Contiguous axialimages ofthe cervical spine were obtained. Coronal and sagittal reformatsof the cervical spine were submittedfor interpretation. Note: Dose reduction was obtained with Automatic Exposure Control (AEC) or,if AEC could not be utilized, by manual adjustment of the mA and/or kVaccording to patient size. CONTRAST DOSE: None. COMPARISON: None. FINDINGS: Calvarium and Scalp: No abnormalities noted. Ventricles, Cisterns, and Sulci: Normal in size and appearance. Abnormal extra-axial fluid collections: None noted. Brain Parenchyma: Normal attenuation with no evidence of stroke, hemorrhageor mass effect. Orbits and sinuses: Probable tiny benign ivory osteoma in the right frontalsinus measuring about 5.7 mm. Visualized paranasal sinuses are otherwiseclear. Orbits are unremarkable. Cervical spine CT scan findings: There is no evidence for fracture orsubluxation. Facet joints articulation, are appropriate bilaterally.Prevertebral soft tissue is within normal limits. Evaluation of individualdisc as follows. C2-C3: Negative.C3-C4: Negative.C4-C5: Negative.C5-C6: Minor disc degeneration without spinal canal stenosis or foraminastenosis.C6-C7: No disc degeneration, spinal stenosis or foramina stenosis. Lower cervicaland upper thoracic spine: No disc degeneration, spinal canalstenosis or foramina stenosis. Visualized lung apices and soft tissue neck appear unremarkable.Postsurgical changes involving the right thyroid gland. Right jugularvenous catheter is in place. Impression: 1. No acute intraparenchymal hemorrhage, mass effect or extra-axialcollection. 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 No evidence for fracture or subluxation cervical spine. Minordegenerative changes. Electronically Signed by: William Singh MD, [place] [facility] Signed on: 01/16/2020 8:38 PMInterface, Rad Results In - 01/16/2020 8:39 PM EDTEXAM: Unenhanced cervical spine and Head CT. INDICATION: Stroke symptoms, neck pain, neck injury, midline tenderness. TECHNIQUE: Serial axial images of the head were obtained. Contiguous axial images of the cervical spine were obtained. Coronal and sagittal reformats of the cervical spine were submitted for interpretation. Note: Dose reduction was obtained with Automatic Exposure Control (AEC) or, if AEC could not be utilized, by manual adjustment of the mA and/or kV according to patient size. CONTRAST DOSE: None. COMPARISON: None. FINDINGS: Calvarium and Scalp: No abnormalities noted. Ventricles, Cisterns, and Sulci: Normal in size and appearance. Abnormal extra-axial fluid collections: None noted. Brain Parenchyma: Normal attenuation with no evidence of stroke,hemorrhage or mass effect. Orbits and sinuses: Probable tiny benign ivory osteoma in the right frontal sinus measuring about 5.7 mm. Visualized paranasal sinuses are otherwise clear. Orbits are unremarkable. Cervical spine CT scan findings: There is no evidence for fracture or subluxation. Facet joints articulation, are appropriate bilaterally. Prevertebral soft tissue is within normal limits. Evaluation of individual disc as follows. C2-C3: Negative. C3-C4: Negative. C4-C5: Negative. C5-C6: Minor disc degeneration without spinal canal stenosis or foramina stenosis. C6-C7: No disc degeneration, spinal stenosis or foramina stenosis. Lower cervical and upper thoracic spine: No disc degeneration, spinal canal stenosis or foramina stenosis. Visualized lung apices and soft tissue neck appear unremarkable. Postsurgical changes involving the right thyroid gland. Right jugular venous catheter is in place. Impression: 1. No acute intraparenchymal hemorrhage, mass effect or extra-axial collection. 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 2. No evidence for fracture or subluxation cervical spine. Minor degenerative changes. Electronically Signed by: William Singh MD, [facility] Electronically Signed on: 01/16/2020 8:38 PMCT cervical spine without [id number] 20:38:22EXAM: Unenhanced cervical spine and Head CT. INDICATION: Stroke symptoms, neck pain, neck injury, midline tenderness. TECHNIQUE: Serial axial images of the head were obtained. Contiguous axialimages ofthe cervical spine were obtained. Coronal and sagittal reformatsof the cervical spine were submittedfor interpretation. Note: Dose reduction was obtained with Automatic Exposure Control (AEC) or,if AEC could not be utilized, by manual adjustment of the mA and/or kVaccording to patient size. CONTRAST DOSE: None. COMPARISON: None. FINDINGS: Calvarium and Scalp: No abnormalities noted. Ventricles, Cisterns, and Sulci: Normal in size and appearance. Abnormal extra-axial fluid collections: None noted. Brain Parenchyma: Normal attenuation with no evidence of stroke, hemorrhageor mass effect. Orbits and sinuses: Probable tiny benign ivory osteoma in the right frontalsinus measuring about 5.7 mm. Visualized paranasal sinuses are otherwiseclear. Orbits are unremarkable. Cervical spine CT scan findings: There is no evidence for fracture orsubluxation. Facet joints articulation, are appropriate bilaterally.Prevertebral soft tissue is within normal limits. Evaluation of individualdisc as follows. C2-C3: Negative.C3-C4: Negative.C4-C5: Negative.C5-C6: Minor disc degeneration without spinal canal stenosis or foraminastenosis.C6-C7: No disc degeneration, spinal stenosis or foramina stenosis. Lower cervicaland upper thoracic spine: No disc degeneration, spinal canalstenosis or foramina stenosis. Visualized lung apices and soft tissue neck appear unremarkable.Postsurgical changes involving the right thyroid gland. Right jugularvenous catheter is in place. Impression: 1. No acute intraparenchymal hemorrhage, mass effect or extra-axialcollection. 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 No evidence for fracture or subluxation cervical spine. Minordegenerative changes. Electronically Signed by: William Singh MD, [place] [facility] Signed on: 01/16/2020 8:38 PMInterface, Rad Results In - 01/16/2020 8:39 PM EDTEXAM: Unenhanced cervical spine and Head CT. INDICATION: Stroke symptoms, neck pain, neck injury, midline tenderness. TECHNIQUE: Serial axial images of the head were obtained. Contiguous axial images of the cervical spine were obtained. Coronal and sagittal reformats of the cervical spine were submitted for interpretation. Note: Dose reduction was obtained with Automatic Exposure Control (AEC) or, if AEC could not be utilized, by manual adjustment of the mA and/or kV according to patient size. CONTRAST DOSE: None. COMPARISON: None. FINDINGS: Calvarium and Scalp: No abnormalities noted. Ventricles, Cisterns, and Sulci: Normal in size and appearance. Abnormal extra-axial fluid collections: None noted. Brain Parenchyma: Normal attenuation with no evidence of stroke,hemorrhage or mass effect. Orbits and sinuses: Probable tiny benign ivory osteoma in the right frontal sinus measuring about 5.7 mm. Visualized paranasal sinuses are otherwise clear. Orbits are unremarkable. Cervical spine CT scan findings: There is no evidence for fracture or subluxation. Facet joints articulation, are appropriate bilaterally. Prevertebral soft tissue is within normal limits. Evaluation of individual disc as follows. C2-C3: Negative. C3-C4: Negative. C4-C5: Negative. C5-C6: Minor disc degeneration without spinal canal stenosis or foramina stenosis. C6-C7: No disc degeneration, spinal stenosis or foramina stenosis. Lower cervical and upper thoracic spine: No disc degeneration, spinal canal stenosis or foramina stenosis. Visualized lung apices and soft tissue neck appear unremarkable. Postsurgical changes involving the right thyroid gland. Right jugular venous catheter is in place. Impression: 1. No acute intraparenchymal hemorrhage, mass effect or extra-axial collection. 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 2. No evidence for fracture or subluxation cervical spine. Minor degenerative changes. Electronically Signed by: William Singh MD, [facility] Electronically Signed on: 01/16/2020 8:38 PMCT brain without [id number] 20:38:22EXAM: Unenhanced cervical spine and Head CT. INDICATION: Stroke symptoms, neck pain, neck injury, midline tenderness. TECHNIQUE: Serial axial images of the head were obtained. Contiguous axialimages ofthe cervical spine were obtained. Coronal and sagittal reformatsof the cervical spine were submittedfor interpretation. Note: Dose reduction was obtained with Automatic Exposure Control (AEC) or,if AEC could not be utilized, by manual adjustment of the mA and/or kVaccording to patient size. CONTRAST DOSE: None. COMPARISON: None. FINDINGS: Calvarium and Scalp: No abnormalities noted. Ventricles, Cisterns, and Sulci: Normal in size and appearance. Abnormal extra-axial fluid collections: None noted. Brain Parenchyma: Normal attenuation with no evidence of stroke, hemorrhageor mass effect. Orbits and sinuses: Probable tiny benign ivory osteoma in the right frontalsinus measuring about 5.7 mm. Visualized paranasal sinuses are otherwiseclear. Orbits are unremarkable. Cervical spine CT scan findings: There is no evidence for fracture orsubluxation. Facet joints articulation, are appropriate bilaterally.Prevertebral soft tissue is within normal limits. Evaluation of individualdisc as follows. C2-C3: Negative.C3-C4: Negative.C4-C5: Negative.C5-C6: Minor disc degeneration without spinal canal stenosis or foraminastenosis.C6-C7: No disc degeneration, spinal stenosis or foramina stenosis. Lower cervicaland upper thoracic spine: No disc degeneration, spinal canalstenosis or foramina stenosis. Visualized lung apices and soft tissue neck appear unremarkable.Postsurgical changes involving the right thyroid gland. Right jugularvenous catheter is in place. Impression: 1. No acute intraparenchymal hemorrhage, mass effect or extra-axialcollection. 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 No evidence for fracture or subluxation cervical spine. Minordegenerative changes. Electronically Signed by: William Singh MD, [place] [facility]ron[facility] Signed on: 01/16/2020 8:38 PMInterface, Rad Results In - 01/16/2020 8:39 PM EDTEXAM: Unenhanced cervical spine and Head CT. INDICATION: Stroke symptoms, neck pain, neck injury, midline tenderness. TECHNIQUE: Serial axial images of the head were obtained. Contiguous axial images of the cervical spine were obtained. Coronal and sagittal reformats of the cervical spine were submitted for interpretation. Note: Dose reduction was obtained with Automatic Exposure Control (AEC) or, if AEC could not be utilized, by manual adjustment of the mA and/or kV according to patient size. CONTRAST DOSE: None. COMPARISON: None. FINDINGS: Calvarium and Scalp: No abnormalities noted. Ventricles, Cisterns, and Sulci: Normal in size and appearance. Abnormal extra-axial fluid collections: None noted. Brain Parenchyma: Normal attenuation with no evidence of stroke,hemorrhage or mass effect. Orbits and sinuses: Probable tiny benign ivory osteoma in the right frontal sinus measuring about 5.7 mm. Visualized paranasal sinuses are otherwise clear. Orbits are unremarkable. Cervical spine CT scan findings: There is no evidence for fracture or subluxation. Facet joints articulation, are appropriate bilaterally. Prevertebral soft tissue is within normal limits. Evaluation of individual disc as follows. C2-C3: Negative. C3-C4: Negative. C4-C5: Negative. C5-C6: Minor disc degeneration without spinal canal stenosis or foramina stenosis. C6-C7: No disc degeneration, spinal stenosis or foramina stenosis. Lower cervical and upper thoracic spine: No disc degeneration, spinal canal stenosis or foramina stenosis. Visualized lung apices and soft tissue neck appear unremarkable. Postsurgical changes involving the right thyroid gland. Right jugular venous catheter is in place. Impression: 1. No acute intraparenchymal hemorrhage, mass effect or extra-axial collection. 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 2. No evidence for fracture or subluxation cervical spine. Minor degenerative changes. Electronically Signed by: William Singh MD, [facility] Electronically Signed on: 01/16/2020 8:38 PMCT cervical spine without [id number] 20:38:22EXAM: Unenhanced cervical spine and Head CT. INDICATION: Stroke symptoms, neck pain, neck injury, midline tenderness. TECHNIQUE: Serial axial images of the head were obtained. Contiguous axialimages ofthe cervical spine were obtained. Coronal and sagittal reformatsof the cervical spine were submittedfor interpretation. Note: Dose reduction was obtained with Automatic Exposure Control (AEC) or,if AEC could not be utilized, by manual adjustment of the mA and/or kVaccording to patient size. CONTRAST DOSE: None. COMPARISON: None. FINDINGS: Calvarium and Scalp: No abnormalities noted. Ventricles, Cisterns, and Sulci: Normal in size and appearance. Abnormal extra-axial fluid collections: None noted. Brain Parenchyma: Normal attenuation with no evidence of stroke, hemorrhageor mass effect. Orbits and sinuses: Probable tiny benign ivory osteoma in the right frontalsinus measuring about 5.7 mm. Visualized paranasal sinuses are otherwiseclear. Orbits are unremarkable. Cervical spine CT scan findings: There is no evidence for fracture orsubluxation. Facet joints articulation, are appropriate bilaterally.Prevertebral soft tissue is within normal limits. Evaluation of individualdisc as follows. C2-C3: Negative.C3-C4: Negative.C4-C5: Negative.C5-C6: Minor disc degeneration without spinal canal stenosis or foraminastenosis.C6-C7: No disc degeneration, spinal stenosis or foramina stenosis. Lower cervicaland upper thoracic spine: No disc degeneration, spinal canalstenosis or foramina stenosis. Visualized lung apices and soft tissue neck appear unremarkable.Postsurgical changes involving the right thyroid gland. Right jugularvenous catheter is in place. Impression: 1. No acute intraparenchymal hemorrhage, mass effect or extra-axialcollection. 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 No evidence for fracture or subluxation cervical spine. Minordegenerative changes. Electronically Signed by: William Singh MD, [facility] Signed on: 01/16/2020 8:38 PMInterface, Rad Results In - 01/16/2020 8:39 PM EDTEXAM: Unenhanced cervical spine and Head CT. INDICATION: Stroke symptoms, neck pain, neck injury, midline tenderness. TECHNIQUE: Serial axial images of the head were obtained. Contiguous axial images of the cervical spine were obtained. Coronal and sagittal reformats of the cervical spine were submitted for interpretation. Note: Dose reduction was obtained with Automatic Exposure Control (AEC) or, if AEC could not be utilized, by manual adjustment of the mA and/or kV according to patient size. CONTRAST DOSE: None. COMPARISON: None. FINDINGS: Calvarium and Scalp: No abnormalities noted. Ventricles, Cisterns, and Sulci: Normal in size and appearance. Abnormal extra-axial fluid collections: None noted. Brain Parenchyma: Normal attenuation with no evidence of stroke,hemorrhage or mass effect. Orbits and sinuses: Probable tiny benign ivory osteoma in the right frontal sinus measuring about 5.7 mm. Visualized paranasal sinuses are otherwise clear. Orbits are unremarkable. Cervical spine CT scan findings: There is no evidence for fracture or subluxation. Facet joints articulation, are appropriate bilaterally. Prevertebral soft tissue is within normal limits. Evaluation of individual disc as follows. C2-C3: Negative. C3-C4: Negative. C4-C5: Negative. C5-C6: Minor disc degeneration without spinal canal stenosis or foramina stenosis. C6-C7: No disc degeneration, spinal stenosis or foramina stenosis. Lower cervical and upper thoracic spine: No disc degeneration, spinal canal stenosis or foramina stenosis. Visualized lung apices and soft tissue neck appear unremarkable. Postsurgical changes involving the right thyroid gland. Right jugular venous catheter is in place. Impression: 1. No acute intraparenchymal hemorrhage, mass effect or extra-axial collection. 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 2. No evidence for fracture or subluxation cervical spine. Minor degenerative changes. Electronically Signed by: William Singh MD, [facility] Electronically Signed on: 01/16/2020 8:38 PMPOC Glucose Whole [id number] 19:29:00 Test Item Value Reference Range Comments POC Glucose (test code = 76 mg/dL 70-140 ALERT V ALUES <50 [place] 18568-3) >250 Others <70 or >350 Performed at [facility]; overseen b y [facility] POCT program REFERENC E RANGES Above is NONFAST ING. Below are FASTING: NOR MAL: 70-99 mg/dL P REDIABETES: 100-125 mg/dL DIABETES: > 125 mg/dL R anges for neonates are dep endent on gestational age and weight. HORACIO (test code = HORACIO) Lab Interpretation (test code = Normal 57862-4) ECG [id number] 19:04:28 Test Item Value Reference Range Comments Vent Rate (bpm) (test code = 0962562154) 77 UT Interval (msec) (test code = 2711268588) 164 QRS Interval (msec) (test code = 1236033557) 82 QT Interval (msec) (test code = 0164656776) 398 QTc (msec) (test code = 6544359294) 450 HORACIO (test code = HORACIO) ECG [id number] 19:04:28 Test Item Value Reference Range Comments Vent Rate (bpm) (test code = 7820269648) 77 UT Interval (msec) (test code = 9806389955) 164 QRS Interval (msec) (test code = 9975459664) 82 QT Interval (msec) (test code = 6148166732) 398 QTc (msec) (test code = 0426222412) 450 HORACIO (test code = HORACIO) HLA Class I Typing Low [id number] 17:53:00 Test Item Value Reference Range Comments HLA A LR ALLELE 1 (test code = 43177269) A*01:01 HLA A* LR ALLELE 2 (test code = 29363619) A*68:01 HLA B LR ALLELE 1 (test code = 99345865) B*07:02 HLA B LR ALLELE 2 (test code = 18026943) B*15:03 HLA C LR ALLELE 1 (test code = 33167970) C*02:10 HLA C LR ALLELE 2 (test code = 97771546) C*12:03 METHOD TYP (test code = 69753370) NGS HLA A LR ALLELE 1 SEROLOGICAL EQUIVALENT (test A1 code = 00164887) HLA A LR ALLELE 2 SEROLOGICAL EQUIVALENT (test A68 code = 73707163) HLA B* LR ALLELE 1 SEROLOGICAL EQUIVALENT (test B7 code = 61224097) HLA B LR ALLELE 2 SEROLOGICAL EQUIVALENT (test B72 code = 67573468) HLA BW LR ALLELE 1 (test code = 67847364) Bw6 HLA BW LR ALLELE 2 (BKR) (test code = 64736725) Bw6 HLA C LR ALLELE 1 SEROLOGICAL EQUIVALENT (test Cw2 code = 94835280) HLA C LR ALLELE 2 SEROLOGICAL EQUIVALENT (test Cw12 code = 71634859) Patient Type (test code = 50083309) RECIPIENT SAMPLE SOURCE (test code = 91373248) BLOOD SAMPLE DATE (test code = 18644133) 20191228 HLA COMMENTS (test code = 88357912) HLA Class II Typing Low [id number] 17:53:00 Test Item Value Reference Range Comments HLA DRB1 LR ALLELE 1 (test code = 55307993) DRB1*13:02 HLA DRB1 LR ALLELE 2 (test code = 60936476) DRB1*15:01 HLA DRB5 LR ALLELE 1 (test code = 81598798) DRB5*01:01 HLA DRB3 LR ALLELE 1 (test code = 76956124) DRB3*03:01 HLA DQA1 LR ALLELE 1 (test code = 50641592) DQA1*01:02 HLA DQA1 LR ALLELE 2 (test code = 70988802) DQA1*- HLA DQB1 LR ALLELE 1 (test code = 98442379) DQB1*05:02 HLA DQB1 LR ALLELE 2 (test code = 08962965) DQB1*06:09 HLA DPA1 LR ALLELE 1 (test code = 67901752) DPA1*01:03 HLA DPA1 LR ALLELE 2 (test code = 74573268) DPA1*02:01 HLA DPB1 LR ALLELE 1 (test code = 70512015) DPB1*01:01 HLA DPB1 LR ALLELE 2 (test code = 20422302) DPB1*16:01 METHOD TYP (test code = 73893937) NGS HLA-DRB1 LR ALLELE 1 SEROLOGICAL EQUIVALENT (test DR13 code = 74012574) HLA DRB1 LR ALLELE 2 SEROLOGICAL EQUIVALENT (test DR15 code = 85938871) HLA DRB5 LR ALLELE 1 SEROLOGICAL EQUIVALENT (test DR51 code = 69195138) HLA DRB3 LR ALLELE 1 SEROLOGICAL EQUIVALENT (test DR52 code = 11412468) HLA DQB1* LR ALLELE 1 SEROLOGICAL EQUIVALENT DQ5 (test code = 16057642) HLA DQB1* LR ALLELE 2 SEROLOGICAL EQUIVALENT DQ6 (test code = 85517765) HLA DPB1 LR ALLELE 1 SEROLOGICAL EQUIVALENT (test DP1 code = 45917427) HLA DPB1* LR ALLELE 2 SEROLOGICAL EQUIVALENT DP16 (test code = 60165850) Patient Type (test code = 58431684) RECIPIENT SAMPLE SOURCE (test code = 59048724) BLOOD SAMPLE DATE (test code = 83254470) 20191228 HLA COMMENTS (test code = 36727563) LAB RESULT [id number] 00:00:00Ordered by an unspecified provider.HLA Flow PRA Screen Pre [id number] 16:22:00 Test Item Value Reference Range Comments PERCENT RELATIVE AB CLASS I 0 (test code = 21365474) PERCENT RELATIVE AB CLASS II 0 (test code = 76566200) DILUTION (test code = 1:1 63687036) METHOD AB (test code = Flow Cytometry 80563097) TEST DATE AB (test code = 2020010113146) SAMPLE DATE (test code = 20191228) HLA COMMENTS (test code = Flow Screen DE: CLASS II: A 58129135) SLIGHTLY SHIFTED/BROAD FLOW ARCHITECTURE WAS OBSERVED WHICH MIGHT BE INDICATIVE OF THE PRESENCE OF WEAK ANTI-HLA ANTIBODIES. Disclaimer #1 (test code = 02833220) HLA Antibody Specificity Class [id number] 16:22:00 Test Item Value Reference Range Comments CPRA CLASS II (test code = 30998711) 0 SPEC CII AB (test code = 55882872) Negative DILUTION (test code = 72901389) 1:1 METHOD AB (test code = 13536617) LUMINEX TEST DATE AB (test code = 56443932) 20200101 SAMPLE DATE (test code = 08250434) 20191228 HLA COMMENTS (test code = 86776834) Disclaimer #2 (test code = 81698086) Cytomegalovirus (CMV) Antibody, [id number] 19:33:00 Test Item Value Reference Range Comments Cytomegalovirus (CMV) Antibody, IGM (test code = Positive Negative 42474952) HORACIO (test code = HORACIO) Lab Interpretation (test code = 48201-4) Abnormal Cytomegalovirus (CMV) Antibody, [id number] 19:28:00 Test Item Value Reference Range Comments Cytomegalovirus (CMV) Antibody, IGG (test code = Positive Negative 13923589) HORACIO (test code = HORACIO) Lab Interpretation (test code = 14430-5) Abnormal Varicella Zoster antibody, [id number] 18:42:00 Test Item Value Reference Range Comments Varicella-Zoster Antibody, IGG (test code = Positive Posi tive 11409-2) HORACIO (test code = HORACIO) Lab Interpretation (test code = 15513-6) Normal Valent[place] Virus [id number] 14:38:00 Test Item Value Reference Range Comments EBV Ab/VCA IgG (test code = 39850617) Positive Negative EBV Ab/VCA IgM (test code = 84345780) Negative Negative EBV Ab/EBNA (test code = 11026167) Positive Negative EBV Ab/EA IgG (test code = 44537071) Negative Negative Lab Interpretation (test code = 11513-8) Abnormal CT chest PE protocol incl CT angiogram chest w wo [id number] 11:40:15 Procedure: CT CHEST PE PROTOCOL INCL CT CHEST ANGIOGRAM W WO CONTRAST Indication: PE suspected, low/intermediate prob, neg D-dimer, R07.9 Chestpain, unspecified Technique: Chest CTA PE Protocol. Volumetric chest CTA acquisition wasperformed from the lower neck to the adrenal glands. The study wasacquired following IV administration of iodinated contrast material toimprove disease detection and further define anatomy. 3D Maximal intensityprojection (MIP) reconstructions were performed to potentially increasestudy sensitivity. Likewise, 3D reconstructions were performed to evaluatevascular anatomy. Comparison(s): None Findings:No evidence of pulmonary embolism. There are right neck surgical clips.There is trace pericardial fluid. There is a right chest wall port with tipin the right ventricle. The pulmonary artery is normal in caliber. There istrace pleural fluid/thickening. There is apatulous esophagus with distalwall thickening. There is no mediastinal, hilar, or axillarylymphadenopathy. The central airways are patent. There are no suspicious pulmonary nodules.There is dependent groundglass favored to represent atelectasis. Scatteredsmall cysts which are indeterminate. Patient status post cholecystectomy. The visualized liver, spleen,pancreas, and bilateral adrenals are normal in contour. There is bilateralrenal atrophy. There are no acute osseous abnormalities. Impression:1. No evidence of pulmonary embolism. 2. Right chest port with tip in the right ventricle. 3. Patulous esophagus with distal esophageal wall thickening, considerupper endoscopy if not previously performed. The preliminary report (critical or emergent communication) was reviewedprior to this dictation and there are no substantial differences betweenthe preliminary results and the impressions in this final report. Electronically Reviewed by: Sam Gannon MD, [place] [facility] Reviewed on: 12/28 10:20 AM I have reviewed the images and concur with the above findings. Electronically Signed by: Gurdeep Hernandez, [facility],[place] [facility] Signed on: 12/29/2019 11:40 AMInterface, Rad Results In - 12/29/2019 11:41 AM EDTProcedure: CT CHEST PE PROTOCOL INCL CT CHEST ANGIOGRAM W WO CONTRAST Indication: PE suspected, low/intermediate prob, neg D- dimer, R07.9 Chest pain, unspecified Technique: Chest CTA PE Protocol. Volumetric chest CTA acquisition was performed from the lower neck to the adrenal glands. The study was acquired following IV administration of iodinated contrast material to improve disease detection and further define anatomy. 3D Maximal intensity projection (MIP) reconstructions were performed to potentially increase study sensitivity. Likewise, 3D reconstructions were performed to evaluate vascular anatomy. Comparison(s): None Findings: No evidence of pulmo nary embolism. There are right neck surgical clips. There is trace pericardial fluid. There is a right chest wall port with tip in the right ventricle. The pulmonary artery is normal in caliber. There is trace pleural fluid/thickening. There is a patulous esophagus with distal wall thickening. There is no mediastinal, hilar, or axillary lymphadenopathy. The central airways are patent. There are no suspicious pulmonary nodules. There is dependent groundglass favored to represent atelectasis. Scattered small cysts which are indeterminate. Patient status post cholecystectomy. The visualized liver, spleen, pancreas, and bilateral adrenals are normal in contour. There is bilateral renal atrophy. There are no acute osseous abnormalities. Impression: 1. No evidence of pulmonary embolism. 2. Right chest port with tip in the right ventricle. 3. Patulous esophagus with distal esophageal wall thickening, consider upper endoscopy if not previously performed. The preliminary report (critical or emergent communication) was reviewed prior to this dictation and there are no substantial differences between thepreliminary results and the impressions in this final report. Electronically Reviewed by: Sam Gannon MD, [facility] Electronically Reviewed on: 12/29/2019 10:20 AM I have reviewed the images and concur with the above findings. Electronically Signed by: Gurdeep Mariscal [facility],[place] [facility] Signed on: 12/29/2019 11:40 AMPOC Coronavirus (COVID-19) SARS-Cov-2 Rapid [id number] 06:49:00 Test Item Value Reference Range Comments POC Coronavirus (COVID-19) SARS-CoV-2 Rapid Not Detected Not Detected Test (test code = 51901-1) HORACIO (test code = HORACIO) Lab Interpretation (test code = 41209-5) Normal POC Coronavirus (COVID-19) SARS-Cov-2 Rapid [id number] 06:49:00 Test Item Value Reference Range Comments POC Coronavirus (COVID-19) SARS-CoV-2 Rapid Not Detected Not Detected Test (test code = 06626-7) HORACIO (test code = HORACIO) Lab Interpretation (test code = 04625-9) Normal Rubeola Antibodies, [id number] 05:36:00 Test Item Value Reference Range Comments Rubeola Antibodies, IgG >300.0 Immune >16.4 AU/mL (test code = 41898542) Negative <13.5 Equivocal 13.5 - 16.4 Positiv e >16.4 Presence of antibodies to Rubeola is pr esumptive evidence of immu nity except when acute infec tion is suspected. HORACIO (test code = HORACIO) Mumps Antibodies, IgG [id number] 05:36:00 Test Item Value Reference Range Comments Mumps IgG Antibody (test code >300.0 Immune >10.9 AU/mL = 76556967) Negative <9.0 Equivocal 9. 0 - 10.9 Posit gage >10.9 A positi ve result generally indica julian past exposure to Mump s virus or previous vaccina tion. HORACIO (test code = HORACIO) Rubeola Antibodies, [id number] 05:36:00 Test Item Value Reference Range Comments Rubeola Antibodies, IgG >300.0 Immune >16.4 AU/mL (test code = 12006840) Negative <13.5 Equivocal 13.5 - 16.4 Positiv e >16.4 Presence of antibodies to Rubeola is pr esumptive evidence of immu nity except when acute infec tion is suspected. HORACIO (test code = HORACIO) Mumps Antibodies, IgG [id number] 05:36:00 Test Item Value Reference Range Comments Mumps IgG Antibody (test code >300.0 Immune >10.9 AU/mL = 02515820) Negative <9.0 Equivocal 9. 0 - 10.9 Posit gage >10.9 A positi ve result generally indica julian past exposure to Mump s virus or previous vaccina tion. HORACIO (test code = HORACIO) [id number] 23:32:00 Test Item Value Reference Range Comments Lipase (test code = 3040-3) 38 U/L 1751 Lab Interpretation (test code = 88694-7) Normal [id number] 23:32:00 Test Item Value Reference Range Comments Lipase (test code = 3040-3) 38 U/L 17-51 Lab Interpretation (test code = 03252-5) Normal Troponin T, High Sensitivity Three Hour (hsTnT)2019-12-28 17:47:00 Test Item Value Reference Range Comments hsTnT 3 hr (test code = 38843-2) 15 ng/L Delta from baseline (test code = 0 71967717) hsTnT Interpretation (test code = Rule-Out Rule-Out, Inde terminate, No 32951274) Delta Troponin T, High Sensitivity Three Hour (hsTnT)2019-12-28 17:47:00 Test Item Value Reference Range Comments hsTnT 3 hr (test code = 88925-8) 15 ng/L Delta from baseline (test code = 0 46831789) hsTnT Interpretation (test code = Rule-Out Rule-Out, Inde terminate, No 70134181) Delta Troponin T, High Sensitivity One Hour (hsTnT)2019-12-28 15:31:00 Test Item Value Reference Range Comments hsTnT 1 hr (test code = 46959-7) 14 ng/L Delta from baseline (test code = 1 82846102) hsTnT Interpretation (test code = Indeterminate Rule-Out, Inde terminate, No 87253159) Delta Troponin T, High Sensitivity One Hour (hsTnT)2019-12-28 15:31:00 Test Item Value Reference Range Comments hsTnT 1 hr (test code = 99102-1) 14 ng/L Delta from baseline (test code = 1 00812822) hsTnT Interpretation (test code = Indeterminate Rule-Out, Inde terminate, No 79895864) Delta Troponin T, High Sensitivity ED Evaluation (hsTnT)2019-12-28 14:53:00 Test Item Value Reference Range Comments hsTnT Baseline (test code = 15 ng/L 37716-2) hsTnT Interpretation (test code = Indeterminate Rule-Out, Inde terminate, No 66512599) Delta Symptom Duration (test code = <3 hours 80887373) Troponin T, High Sensitivity ED Evaluation (hsTnT)2019-12-28 14:53:00 Test Item Value Reference Range Comments hsTnT Baseline (test code = 15 ng/L 08779-8) hsTnT Interpretation (test code = Indeterminate Rule-Out, Inde terminate, No 48659299) Delta Symptom Duration (test code = <3 hours 74916875) Basic Metabolic Panel (BMP)2019-12-28 14:47:00 Test Item Value Reference Range Comments Sodium (test code = 2951-2) 139 mmol/L 135-145 Potassium (test code = 2823-3) 3.6 mmol/L 3.5-5 Chloride (test code = 2075-0) 105 mmol/L 98-108 Carbon Dioxide (CO2) (test 25 mmol/L 21-30 code = 2027-9) Urea Nitrogen (BUN) (test code 18 mg/dL 7-20 = 3094-0) Creatinine (test code = 4.4 mg/dL 0.4-1 2160-0) Glucose (test code = 2345-7) 120 mg/dL 70-140 Int erpretive Data: Above is the NONFASTING r eference range. Below are the FASTING reference ranges : NORMAL: 70-99 mg/dL PREDIABETES: 100 -125 mg/dL DIABETES: > 125 mg/dL Calcium (test code = 22334-5) 9.1 mg/dL 8.7-10.2 Anion Gap (test code = 9 mmol/L 06-2866-1) BUN/CREA Ratio (test code = 10-13 96326241) Glomerular Filtration Rate 12 mL/min/1.73sq m Inter pretive Ranges eGFR (eGFR) (test code = 48120-4) (C KD-EPI): eGFR: > 60 mL/min/1.73 s q m - Normal eGFR: 30 - 59 mL/min/1.73 sq m - Moderately Decre ased eGFR: 15 - 29 mL/min/1.73 sq m - Severely Decreased eGFR: < 15 mL/min/1.73 sq m - Kidney Failure Note: Th erickson GFR calculations do not apply in acute situations when GFR is changing rapidly or in patients on dial ysis. Lab Interpretation (test code Abnormal = 00201-4) Basic Metabolic Panel (BMP)2019-12-28 14:47:00 Test Item Value Reference Range Comments Sodium (test code = 2951-2) 139 mmol/L 135-145 Potassium (test code = 2823-3) 3.6 mmol/L 3.5-5 Chloride (test code = 2075-0) 105 mmol/L 98-108 Carbon Dioxide (CO2) (test 25 mmol/L 21-30 code = 2028-9) Urea Nitrogen (BUN) (test code 18 mg/dL 7-20 = 3094-0) Creatinine (test code = 4.4 mg/dL 0.4-1 2160-0) Glucose (test code = 2345-7) 120 mg/dL 70-140 Int erpretive Data: Above is the NONFASTING r eference range. Below are the FASTING reference ranges : NORMAL: 70-99 mg/dL PREDIABETES: 100 -125 mg/dL DIABETES: > 125 mg/dL Calcium (test code = 24826-4) 9.1 mg/dL 8.7-10.2 Anion Gap (test code = 9 mmol/L 06-2866-1) BUN/CREA Ratio (test code = 4 10-13 80602717) Glomerular Filtration Rate 12 mL/min/1.73sq m Inter pretive Ranges eGFR (eGFR) (test code = 85079-9) (C KD-EPI): eGFR: > 60 mL/min/1.73 s q m - Normal eGFR: 30 - 59 mL/min/1.73 sq m - Moderately Decre ased eGFR: 15 - 29 mL/min/1.73 sq m - Severely Decreased eGFR: < 15 mL/min/1.73 sq m - Kidney Failure Note: GFR calculations do not apply in acute situations when GFR is changing rapidly or in patients on dial ysis. Lab Interpretation (test code Abnormal = 41225-5) ECG [id number] 14:41:53 Test Item Value Reference Range Comments Vent Rate (bpm) (test code = 1864799409) 99 UT Interval (msec) (test code = 8115048269) 172 QRS Interval (msec) (test code = 0737160874) 78 QT Interval (msec) (test code = 5017701178) 374 QTc (msec) (test code = 6758191647) 479 HORACIO (test code = HORACIO) Activated Partial Thromboplastin Time (APTT)2019-12-28 14:41:00 Test Item Value Reference Range Comments Act Partial Thromboplastin Time 33.4 26.8 - 37.1 sec Therapeutic Range (Heparin) = (test code = 15627-7) 65-95 seco nds Note: The therapeutic rang e for Heparin has been determi noam using ex-vivo whole bl ood samples and therapeutic Heparin level of 0.30-0.70 ant i-factor Xa units. Lab Interpretation (test code = Normal 75803-4) Prothrombin Time (INR)2019-12-28 14:41:00 Test Item Value Reference Range Comments Prothrombin Time (test code = 10.7 9.5 - 13.1 sec 5902-2) Prothrombin INR (test code = 0.9 0.9-1.1 Ref erence Ranges: DVT/PE/PVD 6301-6) = INR 2.0 - 3.0 Mechanical Heart Valve = IN R 2.5 - 3.5 NOTE: The INR is not a PT Ratio and is hellen id only for Coumadin patient s Lab Interpretation (test code = Normal 32186-1) Complete Blood Count (CBC)2019-12-28 14:20:00 Test Item Value Reference Range Comments WBC (White Blood Cell Count) (test code = 3.4 3.2 - 9.8 x10 9 47130-1) /L Hemoglobin (test code = 718-7) 8.8 g/dL 12-15.5 Hematocrit (test code = 4544-3) 27.7 % 35-45 Platelets (test code = 73074-6) 192 150 - 45 0 x10 9 /L MCV (Mean Corpuscular Volume) (test code = 101 fL 80-98 787-2) MCH (Mean Corpuscular Hemoglobin) (test code 32.0 pg 26. 5-34 = 785-6) MCHC (Mean Corpuscular Hemoglobin 31.8 % 31.4-36 Concentration) (test code = 786-4) RBC (Red Blood Cell Count) (test code = 2.75 3.77 - 5.16 x10 1 04219-5) 2/L RDW-CV (Red Cell Distribution Width) (test 17.7 % 11.5- 14.5 code = 34090-3) NRBC (Nucleated Red Blood Cell Count) (test 0.00 0 x10 9 code = 87146-5) /L NRBC % (Nucleated Red Blood Cell %) (test 0.0 % code = 94271-5) MPV (Mean Platelet Volume) (test code = 9.8 fL 7.2-11.7 50095308) Lab Interpretation (test code = 95850-4) Abnormal Complete Blood Count (CBC)2019-12-28 14:20:00 Test Item Value Reference Range Comments WBC (White Blood Cell Count) (test code = 3.4 3.2 - 9.8 x10 9 91640-2) /L Hemoglobin (test code = 718-7) 8.8 g/dL 12-15.5 Hematocrit (test code = 4544-3) 27.7 % 35-45 Platelets (test code = 95740-5) 192 150 - 45 0 x10 9 /L MCV (Mean Corpuscular Volume) (test code = 101 fL 80-98 787-2) MCH (Mean Corpuscular Hemoglobin) (test code 32.0 pg 26. 5-34 = 785-6) MCHC (Mean Corpuscular Hemoglobin 31.8 % 31.4-36 Concentration) (test code = 786-4) RBC (Red Blood Cell Count) (test code = 2.75 3.77 - 5.16 x10 1 62889-5) 2/L RDW-CV (Red Cell Distribution Width) (test 17.7 % 11.5- 14.5 code = 25871-3) NRBC (Nucleated Red Blood Cell Count) (test 0.00 0 x10 9 code = 27309-1) /L NRBC % (Nucleated Red Blood Cell %) (test 0.0 % code = 28154-9) MPV (Mean Platelet Volume) (test code = 9.8 fL 7.2-11.7 22102246) Lab Interpretation (test code = 43396-2) Abnormal ECG [id number] 12:55:35 Test Item Value Reference Range Comments Vent Rate (bpm) (test code = 8634398287) 98 UT Interval (msec) (test code = 3371150187) 170 QRS Interval (msec) (test code = 9948467928) 80 QT Interval (msec) (test code = 9120769795) 368 QTc (msec) (test code = 2841716175) 469 HORACIO (test code = HORACIO) HIV-1 And HIV-2 Antibody & [id number] 12:07:00 Test Item Value Reference Range Comments HIV 1&2 Antibody/Antigen (test code = 75397-7) NonReactive N onReactive HORACIO (test code = HORACIO) Lab Interpretation (test code = 51652-7) Normal HIV-1 And HIV-2 Antibody & [id number] 12:07:00 Test Item Value Reference Range Comments HIV 1&2 Antibody/Antigen (test code = 01268-3) NonReactive N onReactive HORACIO (test code = HORACIO) Lab Interpretation (test code = 40939-2) Normal HCV ANTIBODY TESTING WITH REFLEX TO VIRAL LOAD [id number] 11:28:00 Test Item Value Reference Range Comments Hepatitis C Virus Antibody (test code = 93312-8) NonReactive NonReactive Lab Interpretation (test code = 81523-8) Normal Hepatitis A Antibody, [id number] 11:28:00 Test Item Value Reference Range Comments Hepatitis A Virus, Antibody (test code = NonReactive NonReac tive 66626-7) Lab Interpretation (test code = 07995-6) Normal Hepatitis A Antibody, [id number] 11:28:00 Test Item Value Reference Range Comments Hepatitis A Virus, Antibody (test code = NonReactive NonReac tive 10442-3) Lab Interpretation (test code = 80237-9) Normal HCV ANTIBODY TESTING WITH REFLEX TO VIRAL LOAD [id number] 11:28:00 Test Item Value Reference Range Comments Hepatitis C Virus Antibody (test code = 55173-2) NonReactive NonReactive Lab Interpretation (test code = 43295-3) Normal Hepatitis B Surface [id number] 11:00:00 Test Item Value Reference Range Comments Hepatitis B Surface Antigen (test code = 5195-3) NonReactive NonReactive Lab Interpretation (test code = 88974-8) Normal Hepatitis B Surface [id number] 11:00:00 Test Item Value Reference Range Comments Hepatitis B Surface Antigen (test code = 5195-3) NonReactive NonReactive Lab Interpretation (test code = 12262-9) Normal Hepatitis B Surface [id number] 10:49:00 Test Item Value Reference Range Comments Hepatitis B Surface Antibody (test code = 96492-3) Reactive NonReactive Hepatitis B Surface Antibody Quant (test code = 180 mIU/mL 66775710) HORACIO (test code = HORACIO) Lab Interpretation (test code = 75337-6) Abnormal Hepatitis B Surface [id number] 10:49:00 Test Item Value Reference Range Comments Hepatitis B Surface Antibody (test code = 24890-9) Reactive NonReactive Hepatitis B Surface Antibody Quant (test code = 180 mIU/mL 62733819) HORACIO (test code = HORACIO) Lab Interpretation (test code = 52193-5) Abnormal Type And [id number] 10:21:00 Test Item Value Reference Range Comments ABO RH TYPE (test code = 882-1) B Positive Antibody Screen (test code = 890-4) Negative Specimen Outdate (test code = 59853422) 12-31-2019 23:59 Type And [id number] 10:21:00 Test Item Value Reference Range Comments ABO RH TYPE (test code = 882-1) B Positive Antibody Screen (test code = 890-4) Negative Specimen Outdate (test code = 24547767) 12-31-2019 23:59 Hemoglobin [id number] 10:02:00 Test Item Value Reference Range Comments Hemoglobin A1C (test code = 4548-4) 4.7 % <6.5 Average Blood Glucose (Calculated From HgBA1c 83 mg/dL Level) (test code = 87169-4) HORACIO (test code = HORACIO) [id number] 09:16:00 Test Item Value Reference Range Comments Albumin (test code = 1751-7) 3.0 g/dL 3.5-4.8 Lab Interpretation (test code = 41815-3) Abnormal [id number] 09:16:00 Test Item Value Reference Range Comments Creatinine (test code = 2160-0) 4.4 mg/dL 0.4-1 Glomerular Filtration Rate 12 mL/min/1.73sq m Inter pretive Ranges for (eGFR) (test code = 74320-6) eG FR(CKD-EPI): eGFR: > 60 mL/min/1.73 sq m - Normal eGFR: 30 - 59 mL/min/1.73 sq m - Moderately Decre ased eGFR: 15 - 29 mL/min/1.73 sq m - Severely Decreased eGFR: < 15 mL/ min/1.73 sq m - Kidney Delfino lure Note: These GFR calcul ations do not apply in acu te situations when GFR is changing rapidly or in patients on dial ysis. Lab Interpretation (test code = Abnormal 34806-4) [id number] 09:16:00 Test Item Value Reference Range Comments Albumin (test code = 1751-7) 3.0 g/dL 3.5-4.8 Lab Interpretation (test code = 26419-0) Abnormal [id number] 09:16:00 Test Item Value Reference Range Comments Creatinine (test code = 2160-0) 4.4 mg/dL 0.4-1 Glomerular Filtration Rate 12 mL/min/1.73sq m Inter pretive Ranges for (eGFR) (test code = 85217-5) eG FR(CKD-EPI): eGFR: > 60 mL/min/1.73 sq m - Normal eGFR: 30 - 59 mL/min/1.73 sq m - Moderately Decre ased eGFR: 15 - 29 mL/min/1.73 sq m - Severely Decreased eGFR: < 15 mL/ min/1.73 sq m - Kidney Delfino lure Note: These GFR calcul ations do not apply in acu te situations when GFR is changing rapidly or in patients on dial ysis. Lab Interpretation (test code = Abnormal 47569-3) X-ray chest PA and [id number] 08:52:50Procedure: Two-view (frontal and lateral projections) chest. Indication: Z76.82 Awaiting organ transplant status Compare: No prior films available for comparison. Right central venous catheter in position with tip in region of superiorcavoatrial junction. Slightly diminished lung volumes. Cardiomediastinalcontour within normal limits. No abnormal pulmonary or pleural opacities.No pneumothorax. No acute osseous abnormality. Left shoulder arthroplastyis partially visualized. Surgical clips right upper quadrant. CONCLUSIONS:1. Slightly diminished lung volumes no acute abnormalities. Electronically Signed by: Aminta Alatorre MD, [place]ron[facility] Signed on: 12/28/2019 8:52 AMInterLuxury [facility], Rad Results In - 12/28/2019 8:53 AM EDTProcedure: Two-view (frontal and lateral projections) chest. Indication: Z76.82 Awaiting organ transplant status Compare: No prior films available for comparison. Right central venous catheter in position with tip in region of superior cavoatrial junction. Slightly diminished lung volumes. Cardiomediastinal contour within normal limits. No abnormal pulmonaryor pleural opacities. No pneumothorax. No acute osseous abnormality. Left shoulder arthroplasty is partially visualized. Surgical clips right upper quadrant. CONCLUSIONS: 1. Slightly diminished lung volumes no acute abnormalities. Electronically Signed by: Aminta Alatorre MD, [facility] Electronically Signed on: 12/28/2019 8:52 AMX-ray chest PA and [id number] 08:52:50 Procedure: Two-view (frontal and lateral projections) chest. Indication: Z76.82 Awaiting organ transplant status Compare: No prior films available for comparison. Right central venous catheter in position with tip in region of superiorcavoatrial junction. Slightly diminished lung volumes. Cardiomedia stinalcontour within normal limits. No abnormal pulmonary or pleural opacities.No pneumothorax. No acute osseous abnormality. Left shoulder arthroplastyis partially visualized. Surgical clips right upper quadrant. CONCLUSIONS:1. Slightly diminished lung volumes no acute abnormalities. Electronically Signed by: Aminta Alatorre MD, [facility] Signed on: 12/28/2019 8:52 AMInterface, Rad Results In - 12/28/2019 8:53 AM EDTProcedure: Two-view (frontal and lateral projections) chest. Indication: Z76.82 Awaiting organ transplant status Compare: No prior films available for comparison. Right central venous catheter in position with tip in region of superior cavoatrial junction. Slightly diminished lung volumes. Cardiomediastinal contour within normal limits. No abnormal pulmonaryor pleural opacities. No pneumothorax. No acute osseous abnormality. Left shoulder arthroplasty is partially visualized. Surgical clips right upper quadrant. CONCLUSIONS: 1. Slightly diminished lung volumes no acute abnormalities. Electronically Signed by: Aminta Alatorre MD, [facility] Electronically Signed on: 12/28/2019 8:52 AMX-ray chest PA and [id number] 08:52:50 Procedure: Two-view (frontal and lateral projections) chest. Indication: Z76.82 Awaiting organ transplant status Compare: No prior films available for comparison. Right central venous catheter in position with tip in region of superiorcavoatrial junction. Slightly diminished lung volumes. Cardiomedia stinalcontour within normal limits. No abnormal pulmonary or pleural opacities.No pneumothorax. No acute osseous abnormality. Left shoulder arthroplastyis partially visualized. Surgical clips right upper quadrant. CONCLUSIONS:1. Slightly diminished lung volumes no acute abnormalities. Electronically Signed by: Aminta Alatorre MD, [place] Signed on: 12/28/2019 8:52 AMIntertrue [facility] Results [facility] - 12/28/2019 8:53 AM EDTProcedure: Two-view (frontal and lateral projections) chest. Indication: Z76.82 Awaiting organ transplant status Compare: No prior films available for comparison. Right central venous catheter in position with tip in region of superior cavoatrial junction. Slightly diminished lung volumes. Cardiomediastinal contour within normal limits. No abnormal pulmonaryor pleural opacities. No pneumothorax. No acute osseous abnormality. Left shoulder arthroplasty is partially visualized. Surgical clips right upper quadrant. CONCLUSIONS: 1. Slightly diminished lung volumes no acute abnormalities. Electronically Signed by: Aminta Alatorre MD, [facility] Electronically Signed on: 12/28/2019 8:52 AMECG [id number] 08:51:27 Test Item Value Reference Range Comments Vent Rate (bpm) (test code = 2236216939) 99 UT Interval (msec) (test code = 1106755459) 166 QRS Interval (msec) (test code = 7868371403) 76 QT Interval (msec) (test code = 2057654142) 360 QTc (msec) (test code = 1263975040) 462 HORACIO (test code = HORACIO) ECG [id number] 08:51:27 Test Item Value Reference Range Comments Vent Rate (bpm) (test code = 9577951003) 99 UT Interval (msec) (test code = 3986827143) 166 QRS Interval (msec) (test code = 5073915872) 76 QT Interval (msec) (test code = 9561029249) 360 QTc (msec) (test code = 2008532140) 462 HORACIO (test code = HORACIO) WBC,Neutro Percent,Lymph Percent,[place]ner Percent,Eos Percent,Basophil Percent,Neut Absolute,Lymphs [id number] 07:34:00 Test Item Value Reference Range Comments WBC (test code = WBC) 3.8 1 4.8-10.8 Neutro Percent (test code = Neutro Percent) 54.0 % 34.6 -71.4 Lymph Percent (test code = Lymph Percent) 31.3 % 19.6-5 2.7 Sumner Percent (test code = Sumner Percent) 11.0 % 2.4-11.8 Eos Percent (test code = Eos Percent) 2.9 % 0-7.8 Basophil Percent (test code = Basophil Percent) 0.3 % 0-1.8 Neut Absolute (test code = Neut Absolute) 2.1 1 1.8-7. 3 Lymphs Absolute (test code = Lymphs Absolute) 1.2 1 1. 5-4.0 Sumner Absolute (test code = Sumner Absolute) 0.4 1 0.2-1. 0 Eos Absolute (EOSA) (test code = Eos Absolute 0.1 1 0- 0.7 (EOSA)) Baso Absolute (BASOA) (test code = Baso Absolute 0.0 1 0.0-0.2 (BASOA)) RBC (test code = RBC) 2.56 1 4.20-5.40 Hgb (test code = Hgb) 7.9 1 12.0-16.0 Hct (test code = Hct) 24.1 % 38.0-47.0 MCV (MCV) (test code = MCV (MCV)) 94.1 fL 80-94 MCH (HCH) (test code = MCH (HCH)) 30.9 pg 27-34 MCHC (MCHC) (test code = MCHC (MCHC)) 32.8 % 31.5-36.0 RDW (RDW) (test code = RDW (RDW)) 14.6 % 11.5-14.5 Platelet (test code = Platelet) 147 1 130-400 MPV (test code = MPV) 10.6 fL 7.4-10.4 BUN,Sodium Lvl,Potassium Lvl,Chloride,CO2,Glucose Lvl,Creatinine,Calcium Lvl,BUN/CR Ratio,Anion Gap,2019-12-08 07:34:00 Test Item Value Reference Range Comments BUN (test code = BUN) 16 mg/dL 9-23 Sodium Lvl (test code = Sodium Lvl) 144 mmol/L 136-145 Potassium Lvl (test code = Potassium Lvl) 3.1 mmol/L 3.4-5. 1 Chloride (test code = Chloride) 107 mmol/L 98-107 CO2 (test code = CO2) 30.0 mmol/L 20-31 Glucose Lvl (test code = Glucose Lvl) 94 mg/dL 74-106 Creatinine (test code = Creatinine) 3.99 mg/dL 0.55-1.02 Calcium Lvl (test code = Calcium Lvl) 8.7 mg/dL 8.7-10.4 BUN/CR Ratio (test code = BUN/CR Ratio) 4 Anion Gap (test code = Anion Gap) 7 4-18 Calc Osmol (test code = Calc Osmol) 288 1 GFR Non (test code = GFR Non 12.44 ) GFR (test code = GFR 15.05 Marshallese) REQUEST FOR IMAGE LIBRARY [id number] 22:25:30Please refer to the appropriate PACS to view images.REQUEST FOR IMAGE LIBRARY [id number] 22:25:30Please refer to the appropriate PACS to view images.REQUEST FOR IMAGE LIBRARY [id number] 22:25:30Please refer to the appropriate PACS to view images.CT abdomen reference [id number] 22:12:03This order has been auto- finalized. Please see additional clinical documentation for result report.CT abdomen reference [id number] 22:12:03This order has been auto-finalized. Please see additional clinical documentation for result report.CT abdomen reference [id number] 22:12:01This order has been auto-finalized. Please see additional clinical documentation for result report.CT abdomen reference [id number] 22:12:01This order has been auto-finalized. Please see additional clinical documentation for result report.Whole Blood Glucose 2019-11-18 12:07:00 Test Item Value Reference Range Comments Whole Blood Glucose (test code = Whole Blood 88 mg/dL 74- 106 Glucose) Stool Culture and Gram Stain for [id number] 11:38:00 Test Item Value Reference Range Comments Stool Culture and Gram NO SALMONELLA, SHIGELLA OR Stain for WBC (test code = CAMPYLOBACTER ISOLATED AT 2 DAYS Stool Culture and Gram Stain for WBC) POC [id number] 11:30:00 Test Item Value Reference Range Comments POC Glucose (test code = POC Glucose) Done Charted Vitamin B12 Level -,Folate Level -2019-11-18 09:20:00 Test Item Value Reference Range Comments Vitamin B12 Level - (test 595 pg/mL 211-911 code = Vitamin B12 Level -) Folate Level - (test code = 2.9 ng/mL Resu lt Comment: Folate Level -) Indete rminate: 3.4 to 5.4 Deficient : <3.4 Iron,TIBC,Iron Sat,Unsaturated [id number] 09:20:00 Test Item Value Reference Range Comments Iron (test code = Iron) 38 1 50-170 Result C omment: Patient s treated with metal-binding dr ugs (e.g. deferoxamine) edna y have depressed iron v alues, as chelated iron edna y not properly react in the iro n assay. TIBC (test code = TIBC) 229 1 250-425 Iron Sat (test code = Iron Sat) 17 % 15-55 Unsaturated IBC (test code = 191 1 150-375 Unsaturated IBC) WBC,RBC,Hgb,Hct,MCV (MCV),MCH (HCH),MCHC (MCHC),RDW (RDW),Platelet,[id number] 02:00:00 Test Item Value Reference Range Comments WBC (test code = WBC) 4.3 1 4.8-10.8 RBC (test code = RBC) 2.62 1 4.20-5.40 Hgb (test code = Hgb) 8.0 1 12.0-16.0 Hct (test code = Hct) 24.4 % 38.0-47.0 MCV (MCV) (test code = MCV (MCV)) 93.1 fL 80-94 MCH (HCH) (test code = MCH (HCH)) 30.5 pg 27-34 MCHC (MCHC) (test code = MCHC (MCHC)) 32.8 % 31.5-36.0 RDW (RDW) (test code = RDW (RDW)) 14.6 % 11.5-14.5 Platelet (test code = Platelet) 120 1 130-400 MPV (test code = MPV) 9.6 fL 7.4-10.4 BUN,Glucose Lvl,Creatinine,Calcium Lvl,Phosphorus,Albumin Lvl,CO2,Chloride,Sodium Lvl,Potassium Lvl,2019-11-18 02:00:00 Test Item Value Reference Range Comments BUN (test code = BUN) 41 mg/dL 9-23 Glucose Lvl (test code = Glucose Lvl) 84 mg/dL 74-106 Creatinine (test code = Creatinine) 5.74 mg/dL 0.55-1.02 Calcium Lvl (test code = Calcium Lvl) 8.3 mg/dL 8.7-10.4 Phosphorus (test code = Phosphorus) 4.7 mg/dL 2.4-5.1 Albumin Lvl (test code = Albumin Lvl) 2.2 1 3.4-5.0 CO2 (test code = CO2) 26.0 mmol/L 20-31 Chloride (test code = Chloride) 105 mmol/L 98-107 Sodium Lvl (test code = Sodium Lvl) 140 mmol/L 136-145 Potassium Lvl (test code = Potassium Lvl) 3.6 mmol/L 3.4-5. 1 Anion Gap (test code = Anion Gap) 9 4-18 Calc Osmol (test code = Calc Osmol) 288 1 BUN/CR Ratio (test code = BUN/CR Ratio) 7 GFR Non (test code = GFR Non 8.18 ) GFR (test code = GFR 9.89 Marshallese) Magnesium [id number] 02:00:00 Test Item Value Reference Range Comments Magnesium Lvl (test code = Magnesium Lvl) 1.8 mg/dL 1.60-2 .60 MRSA [id number] 02:00:00 Test Item Value Reference Range Comments MRSA Screen (test code = NEGATIVE Result Comment: MRSA SCREEN- MRSA Screen) MRSA SCREEN-A po sitive test result does not necessarily indicate the pre sence of viable organisms but is presumptive for MRSA. MRSA SCREE N-Results should be used to ident aisha patients needing enhanced precautions and should not be us ed to guide or monitor treatmen t for MRSA infections. Vanco Lvl (RANDOM)2019-11-18 02:00:00 Test Item Value Reference Range Comments Vanco Lvl (RANDOM) (test code = Vanco Lvl (RANDOM)) 18.2 1 [id number] 02:00:00 Test Item Value Reference Range Comments Ferritin (test code = Ferritin) 442 ng/mL 7.3-270.7 Coronavirus PCR [id number] 19:45:00 Test Item Value Reference Range Comments Coronavirus PCR Inhouse (test NEGATIVE Re sult Comment: This assay is code = Coronavirus PCR Inhouse) only intended for use under the Food and Paulie g Administration's (FDA) Emergency Use Authorization(EU A). Terms of use require that the following Fact S heets be provided with th is test report: --21 nCo V Real Time RT-PCR Diagnosti c Panel for Providers --21 n CoV Real Time RT-PCR Diagnosti c Panel for Patients These F act Sheets can be accessed at: [email or web address]:www.[employer] s C. Diff GDH Anitgen,C. Diff Toxins A and [id number] 16:33:00 Test Item Value Reference Range Comments C. Diff GDH Anitgen (test Negative for GDH Antigen. code = C. Diff GDH Anitgen) Repeat testing will not be performed for 7 days. C. Diff Toxins A and B (test Negative for C. Diff Toxins. code = C. Diff Toxins A and B) Neutro Percent,Lymph Percent,Sumner Percent,Eos Percent,Basophil Percent,Neut Absolute,Lymphs [id number] 14:44:00 Test Item Value Reference Range Comments Neutro Percent (test code = Neutro Percent) 74.2 % 34.6 -71.4 Lymph Percent (test code = Lymph Percent) 12.9 % 19.6-5 2.7 Sumner Percent (test code = Sumner Percent) 11.1 % 2.4-11.8 Eos Percent (test code = Eos Percent) 0.5 % 0-7.8 Basophil Percent (test code = Basophil Percent) 0.2 % 0-1.8 Neut Absolute (test code = Neut Absolute) 4.2 1 1.8-7. 3 Lymphs Absolute (test code = Lymphs Absolute) 0.7 1 1. 5-4.0 Sumner Absolute (test code = Sumner Absolute) 0.6 1 0.2-1. 0 Eos Absolute (EOSA) (test code = Eos Absolute (EOSA)) 0.0 1 0-0.7 Baso Absolute (BASOA) (test code = Baso Absolute 0.0 1 0.0-0.2 (BASOA)) Bili Total,Alk Phos,AST,ALT,Total Protein,Globulin,Albumin/Globulin Ratio 2019-11-17 14:44:00 Test Item Value Reference Range Comments Bili Total (test code = Bili Total) 0.2 mg/dL 0.2-1.2 Alk Phos (test code = Alk Phos) 183 1 46-116 AST (test code = AST) 11 1 15-34 ALT (test code = ALT) 8 1 10-49 Total Protein (test code = Total Protein) 5.9 1 5.7-8. 2 Globulin (test code = Globulin) 3.6 1 1.5-4.5 Albumin/Globulin Ratio (test code = 0.6 1.1-1.8 Albumin/Globulin Ratio) Lipase [id number] 14:44:00 Test Item Value Reference Range Comments Lipase Lvl (test code = Lipase Lvl) 29 1 12-53 Whole Blood [id number] 11:55:00 Test Item Value Reference Range Comments Whole Blood Glucose (test code = Whole Blood 85 mg/dL 74- 106 Glucose) POC [id number] 11:30:00 Test Item Value Reference Range Comments POC Glucose (test code = POC Glucose) Done Charted BUN,Sodium Lvl,Potassium Lvl,Chloride,CO2,Glucose Lvl,Creatinine,Calcium Lvl,BUN/CR Ratio,Anion Gap,2019-11-16 06:15:00 Test Item Value Reference Range Comments BUN (test code = BUN) 30 mg/dL 9- Result Com ment: BUN-RECHECKED Sodium Lvl (test code = Sodium 138 mmol/L 136-145 Lvl) Potassium Lvl (test code = 3.7 mmol/L 3.4-5.1 Potassium Lvl) Chloride (test code = 103 mmol/L 98-107 Chloride) CO2 (test code = CO2) 28.0 mmol/L 20-31 Glucose Lvl (test code = 88 mg/dL 74-106 Glucose Lvl) Creatinine (test code = 4.62 mg/dL 0.55-1.02 Creatinine) Calcium Lvl (test code = 8.5 mg/dL 8.7-10.4 Calcium Lvl) BUN/CR Ratio (test code = 6 BUN/CR Ratio) Anion Gap (test code = Anion 7 4-18 Gap) Calc Osmol (test code = Calc 281 1 Osmol) GFR Non (test 10.50 code = GFR Non ) GFR (test 12.71 code = GFR ) Vanco Lvl (RANDOM)2019-11-15 12:51:00 Test Item Value Reference Range Comments Vanco Lvl (RANDOM) (test code = Vanco Lvl (RANDOM)) 25.1 1 WBC,RBC,Hgb,Hct,MCV (MCV),MCH (HCH),MCHC (MCHC),RDW (RDW),Platelet,[id number] 06:40:00 Test Item Value Reference Range Comments WBC (test code = WBC) 4.8 1 4.8-10.8 RBC (test code = RBC) 2.96 1 4.20-5.40 Hgb (test code = Hgb) 9.2 1 12.0-16.0 Hct (test code = Hct) 27.8 % 38.0-47.0 MCV (MCV) (test code = MCV (MCV)) 93.9 fL 80-94 MCH (HCH) (test code = MCH (HCH)) 31.1 pg 27-34 MCHC (MCHC) (test code = MCHC (MCHC)) 33.1 % 31.5-36.0 RDW (RDW) (test code = RDW (RDW)) 14.3 % 11.5-14.5 Platelet (test code = Platelet) 131 1 130-400 MPV (test code = MPV) 9.4 fL 7.4-10.4 Magnesium [id number] 06:40:00 Test Item Value Reference Range Comments Magnesium Lvl (test code = Magnesium Lvl) 1.9 mg/dL 1.60-2 .60 Phosphorus,Albumin [id number] 06:40:00 Test Item Value Reference Range Comments Phosphorus (test code = Phosphorus) 4.3 mg/dL 2.4-5.1 Albumin Lvl (test code = Albumin Lvl) 2.2 1 3.4-5.0 PT,[id number] 12:50:00 Test Item Value Reference Range Comments PT (test code = PT) 10.1 s 9.7-11.3 INR (test code = INR) 1.0 0.9-1.1 Neutro Percent,Lymph Percent,[place]ner Percent,Eos Percent,Basophil Percent,Neut Absolute,Lymphs [id number] 04:05:00 Test Item Value Reference Range Comments Neutro Percent (test code = Neutro Percent) 56.1 % 34.6 -71.4 Lymph Percent (test code = Lymph Percent) 26.4 % 19.6-5 2.7 Sumner Percent (test code = Sumner Percent) 12.0 % 2.4-11.8 Eos Percent (test code = Eos Percent) 4.7 % 0-7.8 Basophil Percent (test code = Basophil Percent) 0.4 % 0-1.8 Neut Absolute (test code = Neut Absolute) 2.8 1 1.8-7. 3 Lymphs Absolute (test code = Lymphs Absolute) 1.3 1 1. 5-4.0 Sumner Absolute (test code = Sumner Absolute) 0.6 1 0.2-1. 0 Eos Absolute (EOSA) (test code = Eos Absolute (EOSA)) 0.2 1 0-0.7 Baso Absolute (BASOA) (test code = Baso Absolute 0.0 1 0.0-0.2 (BASOA)) [id number] 15:30:00 Test Item Value Reference Range Comments Crossmatch (test code = CROSSMATCH [id number] Date Crossmatch) Specimen Received By Lab: @[id number] BLOOD COMPONENT TYPE RED CELL GROUP NUMBER OF UNITS ORDERED 2 ARM BAND NUMBER [id number] ABO/RH(D) B ABO/RH(D) POSITIVE ANTIBODY SCREEN NEGATIVE CROSSMATCH EXPIRATION 11/13/2019 Called to. [facility] @1902 UNIT NUMBER [id number] BLOOD COMPONENT TYPE LEUKO-POOR RED CELLS UNIT DIVISION 00 STATUS OF UNIT TRANSFUSED TRANSFUSION STATUS OK TO TRANSFUSE CROSSMATCH RESULT COMPATIBLE UNIT NUMBER [id number] BLOOD COMPONENT TYPE LEUKO-POOR RED CELLS UNIT DIVISION 00 STATUS OF UNIT TRANSFUSED TRANSFUSION STATUS OK TO TRANSFUSE CROSSMATCH RESULT COMPATIBLE Bili Total,Alk Phos,AST,ALT,Total Protein,Globulin,Albumin/Globulin Ratio 2019-11-09 02:10:00 Test Item Value Reference Range Comments Bili Total (test code = Bili <0.2 0.2-1.2 Res ult Comment: BILIRUBIN Total) TOTAL-RECHECKED Alk Phos (test code = Alk Phos) 168 1 46-116 AST (test code = AST) 8 1 15-34 ALT (test code = ALT) 7 1 10-49 Total Protein (test code = 5.4 1 5.7-8.2 Total Protein) Globulin (test code = Globulin) 3.4 1 1.5-4.5 Albumin/Globulin Ratio (test 0.6 1.1-1.8 code = Albumin/Globulin Ratio) ID NOW Covid [id number] 08:30:00 Test Item Value Reference Range Comments ID NOW Covid 19 (test COVID-19 NEGATIVE Result C omment: ID NOW code = ID NOW Covid COVID1-Th is result does 19) not rule out co- infections with other patho gens. False negative results may occur if a specimen is im properly collected, trans ported or handled. False n egative results may also occur if amplification in hibitors are present in the s pecimen or if inadequate level s of viruses are present in t he specimen. Negative results should be considered in e context of a patient's rece nt exposures, history and the presence of clinical signs a nd symptoms consistent with COVID-1. This assay is only in tended for use under the od and Drug Administration's (FDA) Emergency Use Authorization(EU A). Terms of use require that the following Fact S heets be provided with is test report: --[facility] ID NOW COVID 1 f or Providers --[facility] ID NOW COVID 1 for Adilia ents These Fact Sheets can be accessed at: [email or web address] MRSA [id number] 07:35:00 Test Item Value Reference Range Comments MRSA Screen (test code = NEGATIVE Result Comment: MRSA SCREEN- MRSA Screen) MRSA SCREEN-A po sitive test result does not necessarily indicate the pre sence of viable organisms but is presumptive for MRSA. MRSA SCREE N-Results should be used to ident aisha patients needing enhanced precautions and should not be us ed to guide or monitor treatmen t for MRSA infections. Lipase [id number] 01:40:00 Test Item Value Reference Range Comments Lipase Lvl (test code = Lipase Lvl) 54 1 12-53 WBC BF,RBC BF,Polys BF,[place] Macrophage BF,Specimen Type (SPTY)2019-11-07 01:20:00 Test Item Value Reference Range Comments WBC BF (test code = WBC 1591 1 Result C omment: The BF) reference range has not been established for Fluid WBC levels . RBC BF (test code = RBC <3000 Result C omment: The BF) reference range has not been established for Fluid RBC levels . Polys BF (test code = 75 % Polys BF) Sumner Macrophage BF 25 TOTAL MONONUCLEAR (test code = Sumner CELLS Macrophage BF) Specimen Type (SPTY) PERITONEAL DIALYSATE (test code = Specimen Type (SPTY)) Body Fluid Culture and Gram [id number] 01:20:00 Test Item Value Reference Range Comments Body Fluid Culture and Gram Stain (test NO GROWTH 7 DAYS code = Body Fluid Culture and Gram Stain) UA Spec Grav,UA Color,UA Appear,UA Glucose,UA Bili,UA Ketones,UA Blood,UA pH,UA Protein,UA [id number] 00:27:00 Test Item Value Reference Range Comments UA Spec Grav (test code = UA Spec Grav) 1.014 UA Color (test code = UA Color) LT YELLOW UA Appear (test code = UA Appear) CLEAR UA Glucose (test code = UA Glucose) NEGATIVE UA Bili (test code = UA Bili) NEGATIVE UA Ketones (test code = UA Ketones) NEGATIVE UA Blood (test code = UA Blood) NEGATIVE UA pH (test code = UA pH) 5.0 5.0-9.0 UA Protein (test code = UA Protein) 20 mg/dL 0-30 UA Urobilinogen (test code = UA Urobilinogen) NEGATIVE 0. 2-1.0 UA Nitrite (test code = UA Nitrite) NEGATIVE UA Leuk Est (test code = UA Leuk Est) 75 UA RBC (test code = UA RBC) <1 UA WBC (test code = UA WBC) 4 1 UA Bacteria (test code = UA Bacteria) TRACE UA Mucous (test code = UA Mucous) TRACE UA Squamous Epithelial (test code = UA Squamous MODERATE Epithelial) EKG 12 [id number] 16:00:00 Test Item Value Reference Range Comments EKG Text (test code = [facility]AC[facility] 426467[facility]- ABNORMAL ECG -Sinus rhythmnormal P axis, V-rate 60-99Poor R wave progressionWhen compared with ECG of 03-Apr-2019 12:36:39,Contour changesReading Physician 35289&Keven&Margo&Adelia Heart Rate (test code = 98 028668) P-R Interval (test code = 175 070888) P [place] (test code = 168792) 57 QRS Duration (test code = 88 249707) QT Internal (test code = 349 842802) QTcB (test code = 796033) 446 QRS [place] (test code = -27 226383) I-40 [place] (test code = 23 795356) T-40 [place] (test code = -75 948113) T Wave [place] (test code = 55 120247) ST [place] (test code = 11 010122) [id number] 12:56:09 Test Item Value Reference Range Comments EC IVSd (test code = 344003) 0.99 cm EC LVIDd (test code = 20380424) 3.5 cm EC LVIDs (test code = 20380425) 2.4 cm EC LVPWd (test code = 20380427) 0.91 cm EC IVS/LVPW (test code = 542331) 1.1 EC FS (test code = 20391122) 31.5 % EC EDV(Teich) (test code = 176633) 50.3 ml EC ESV(Teich) (test code = 239621) 19.9 ml EC EF(Teich) (test code = 315048) 60.5 % EC EF (est.) (test code = 45390-5) 66.8 % EC EDV(cubed) (test code = 20390719) 42.3 ml EC ESV(cubed) (test code = 20390720) 13.6 ml EC EF(cubed) (test code = 20391025) 67.9 % EC LV mass(C)d (test code = 20411024) 95.1 grams grams EC LV mass(C)dI (test code = 20410925) 47.5 grams/m\\S\\2 grams/m\\S\\ 2 EC SV(Teich) (test code = 20380726) 30.4 ml EC SI(Teich) (test code = 219751) 15.2 ml/m\\S\\2 ml/m\\S\\2 EC SV(cubed) (test code = 072761) 28.7 ml EC SI(cubed) (test code = 20400923) 14.3 ml/m\\S\\2 ml/m\\S\\2 EC Ao root diam (test code = 20380520) 2.9 cm EC Ao root area (test code = 20390618) 6.4 cm\\S\\2 cm\\S\\2 EC LA dimension (test code = 20380422) 3.1 cm EC ascAortaDiam (test code = 20810422) 2.7 cm EC LA/Ao (test code = 20410624) 1.1 EC LVLd ap4 (test code = ) 7.2 cm EC EDV(MOD-sp4) (test code = 20381024) 57.7 ml EC LVLs ap4 (test code = 20400419) 6 cm EC ESV(MOD-sp4) (test code = 20381117) 20.3 ml EC EF(MOD-sp4) (test code = 20391119) 64.8 % EC LVLd ap2 (test code = ) 7.2 cm EC EDV(MOD-sp2) (test code = 20381023) 67.4 ml EC LVLs ap2 (test code = ) 6.3 cm EC ESV(MOD-sp2) (test code = ) 20.2 ml EC EF(MOD-sp2) (test code = 20391118) 70 % EC SV(MOD-sp4) (test code = 20380527) 37.4 ml EC SI(MOD-sp4) (test code = 642524) 18.7 ml/m\\S\\2 ml/m\\S\\2 EC SV(MOD-sp2) (test code = 355801) 47.2 ml EC SI(MOD-sp2) (test code = 113728) 23.5 ml/m\\S\\2 ml/m\\S\\2 EC MVEmaxvel (test code = 264732) 63.6 cm/sec cm/sec EC MVAmaxvel (test code = 013275) 143.4 cm/sec cm/sec EC MV E/A (test code = 878931) 0.44 EC MV dec slope (test code = 337176) 454.4 cm/sec\\S\\2 cm/sec\\S\\2 EC MV dec time (test code = 265353) 0.14 sec sec EC Ao V2 max (test code = 978425) 154.1 cm/sec cm/sec EC Ao max PG (test code = 112380) 9.6 mmHg mmHg EC Ao max PG (full) (test code = 890054) 6 mmHg mmHg EC LVOTmaxgradient (test code = 725763) 3.6 mmHg mmHg EC LVOTmaxvel (test code = 986015) 94.7 cm/sec cm/sec EC PA V2 max (test code = 703204) 126.2 cm/sec cm/sec EC PA max PG (test code = 388436) 6.4 mmHg mmHg EC PA acc time (test code = 594425) 0.06 sec sec EC PA pr(Accel) (test code = 622042) 51.7 mmHg mmHg HORACIO (test code = HORACIO) PXN (test code = PXN) GLUCOSE, [id number] 08:58:00 Test Item Value Reference Range Comments Glucose (test code = 2339-0) 123 mg/dL 70-100 Lab Interpretation (test code = 59666-2) Abnormal COVID-19 ROUTINE ( LABS)2019-10-07 16:55:00 Test Item Value Reference Range Comments [id number] PCR (test code = 91017-8) Negative Neg ative HORACIO (test code = HORACIO) Lab Interpretation (test code = 80729-9) Normal PT (PROTHROMBIN TIME) WITH [id number] 12:57:00 Test Item Value Reference Range Comments PT (test code = 5902-2) 12.3 seconds 10.2 - 12.9 seconds INR (test code = 6301-6) 1.0 STD The rapeutic Range 2-3 Lab Interpretation (test Normal code = 13379-7) BASIC METABOLIC [id number] 12:56:00 Test Item Value Reference Range Comments BUN (test code = 3094-0) 44 mg/dL 10-20 Sodium (test code = 2951-2) 138 mEq/L 136 - 145 mEq/L Potassium (test code = 2823-3) 3.2 mEq/L 3.4 - 4.4 mEq/L Chloride (test code = 2075-0) 97 mEq/L 98 - 107 mEq/L CO2 (test code = 8-9) 24 mEq/L 22 - 29 mEq/L Anion Gap (test code = 26604-7) 17 mEq/L 4 - 12 mEq/L Glucose (test code = 2345-7) 109 mg/dL 70-105 Creatinine (test code = 2160-0) 8.74 mg/dL 0.57-1.11 Glomerular Filtration Rate (test code = 5 mL/Min/1.73 m2 >=59 mL /Min/1.73 m2 86234-5) Calcium (test code = 35425-4) 9.3 mg/dL 8.4-10.2 Osmo (Calc'd) (test code = 31192-8) 299 mOsm/kg mOsm/kg Bun:Creat Ratio (test code = 3097-3) 5.03 Lab Interpretation (test code = Abnormal 37992-3) CBC WITHOUT [id number] 12:37:00 Test Item Value Reference Range Comments WBC (White Blood Cell Count) (test code = 4.65 k/uL 4.50 - 11.00 k/uL 6690-2) RBC (Red Blood Cell Count) (test code = 4.69 M/uL 3.80 - 5 .20 M/uL 789-8) Hemoglobin (test code = 718-7) 14.3 g/dL 12-16 Hematocrit (test code = 4544-3) 44.1 % 35-47 MCV (Mean Corpuscular Volume) (test code = 94.0 fL 80-10 0 787-2) MCH (Mean Corpuscular Hemoglobin) (test code 30.5 pg 26- 34 = 785-6) MCHC (Mean Corpuscular Hemoglobin 32.4 g/dL 32-36 Concentration) (test code = 786-4) RDW (Red Cell Distribution Width) (test code 14.3 % 11. 5-14.5 = 788-0) Platelet Count (test code = 777-3) 194 k/uL 150 - 440 k/u L MPV (Mean Platelet Volume) (test code = 10.3 fL 7.4-10.6 63683-4) Nucleated RBC (test code = 00890-2) 0.0 /100 WBC 0 /100 WBC Absolute Nucleated RBC (#) (test code = <0.01 0 k/uL 771-6) Lab Interpretation (test code = 67492-9) Normal [id number] 15:34:57 Test Item Value Reference Range Comments Ferritin (test code = 2276-4) 148 ng/mL 8-252 BASIC METABOLIC [id number] 15:34:42 Test Item Value Reference Range Comments BUN (test code = 3094-0) 31 mg/dL 7-18 Sodium (test code = 2951-2) 142 mEq/L 136- 145 mEq/L Potassium (test code = 2823-3) 3.7 mEq/L 3.5- 5.1 mEq/L Chloride (test code = 2075-0) 107 mEq/L 98- 107 mEq/L Bicarbonate (TCO2) (test code = 8-9) 27 mEq/L 21- 32 m Eq/L Glucose (test code = 2345-7) 197 mg/dL 74-106 Creatinine (test code = 2160-0) 4.39 mg/dL 0.55-1.3 Anion Gap (calc.) (test code = 15604-1) 8 mEq/L 5- 15 mE q/L Calcium (test code = 26860-5) 8.3 mg/dL 8.5-10.1 BUN/Creatinine (test code = 3097-3) 7.1 mg/dL Osmolality (calc) (test code = 70057-6) 295 mOsmol/kg 273- 304 mOsmol/kg GFR, non-AA, (est.) (test code = 11 mL/Min/1.73 m2 >59 mL/Min/1. 73 m2 98279-4) GFR, AA, (est.) (test code = 78743-6) 14 mL/Min/1.73 m2 >59 mL/M in/1.73 m2 Lab Interpretation (test code = Abnormal 89389-4) [id number] 15:34:42 Test Item Value Reference Range Comments Phosphorus (test code = 2777-1) 4.3 mg/dL 2.6-4.7 [id number] 15:34:42 Test Item Value Reference Range Comments Iron (test code = 2498-4) 68 ug/dL 50-170 TOTAL IRON BINDING CAPACITY (TIBC)2018-08-24 15:34:42 Test Item Value Reference Range Comments Iron Binding Capacity, total (test code = 2500-7) 283 ug/dL 250-450 Transferrin Saturation (%) (test code = 2502-3) 24 % 20-50 CBC WITH [id number] 14:41:40 Test Item Value Reference Range Comments WBC (test code = 6690-2) 5.49 k/uL 4.8- 10.8 k/uL RBC (test code = 789-8) 3.24 M/uL 3.8- 5.1 M/uL Hemoglobin (test code = 718-7) 10.4 g/dL 12-16 Hematocrit (calc.) (test code = 4544-3) 31.1 % 37-47 MCV (test code = 787-2) 96.0 fL 80-98 MCH (test code = 785-6) 32.1 pg 27-32 MCHC (calc.) (test code = 786-4) 33.4 g/dL 33-36 RDW (test code = 788-0) 14.1 % 11-14.4 Platelet (test code = 777-3) 162 k/uL 130- 400 k/uL Mean Platelet Volume (test code = 91829-8) 9.7 fL 7.4-1 0.4 Neutrophil (%) (test code = 26318-2) 41 % 21-69 Eosinophil (%) (test code = 713-8) 2 % 0-3 Basophil (%) (test code = 706-2) 0 % 0-1 Monocyte (%) (test code = 5905-5) 8 % 3.5-12 Lymphocyte (%) (test code = 736-9) 48 % 21-46 Immature Granulocytes (%) (test code = 75242-9) 1 % Neutrophil (#) (test code = 98826-9) 2.27 k/uL 2.2- 4.8 k/ uL Lymphocyte (#) (test code = 731-0) 2.67 k/uL 1.3- 2.9 k/uL Monocyte (#) (test code = 742-7) 0.41 k/uL 0.1- 0.6 k/uL Eosinophil (#) (test code = 711-2) 0.09 k/uL 0.0- 0.5 k/uL Basophil (#) (test code = 704-7) 0.02 k/uL 0.0- 0.1 k/uL Immature Granulocytes (#) (test code = 98640-3) 0.03 k/uL k/uL Lab Interpretation (test code = 78458-2) Abnormal COMPREHENSIVE METABOLIC [id number] 14:03:57 Test Item Value Reference Range Comments Sodium (test code = 2951-2) 143 mEq/L 136- 145 mEq/L Potassium (test code = 2823-3) 4.0 mEq/L 3.5- 5.1 mEq/L Chloride (test code = 2075-0) 107 mEq/L 98- 107 mEq/L Bicarbonate (TCO2) (test code = 2027-9) 28 mEq/L 21- 32 m Eq/L Calcium (test code = 10335-8) 8.9 mg/dL 8.5-10.1 Glucose (test code = 2345-7) 141 mg/dL 74-106 BUN (test code = 3094-0) 40 mg/dL 7-18 Protein, Total (test code = 2885-2) 6.5 g/dL 6.4-8.2 Albumin (test code = 1751-7) 2.7 g/dL 3.4-5 Bilirubin, Total (test code = 1974-2) 0.3 mg/dL 0.2-1 Alkaline Phosphatase (test code = 47 U/L 46-116 6768-6) AST (SGOT) (test code = 1920-8) 14 U/L 15-37 Creatinine (test code = 2160-0) 4.29 mg/dL 0.55-1.3 Anion Gap (calc.) (test code = 82759-7) 8 mEq/L 5- 15 mE q/L ALT (SGPT) (test code = 1742-6) 12 U/L 12-78 BUN/Creatinine (test code = 3097-3) 9.3 mg/dL Osmolality (calc) (test code = 28113-3) 297 mOsmol/kg 273- 304 mOsmol/kg Globulin (calc.) (test code = 04482-6) 3.8 g/dL Albumin / Globulin (test code = 1759-0) 0.71 GFR, non-AA, (est.) (test code = 12 mL/Min/1.73 m2 >59 mL/Min/1. 73 m2 35675-7) GFR, AA, (est.) (test code = 43635-9) 14 mL/Min/1.73 m2 >59 mL/M in/1.73 m2 Lab Interpretation (test code = Abnormal 26047-8) [id number] 13:56:24 Test Item Value Reference Range Comments Iron (test code = 2498-4) 73 ug/dL 50-170 TOTAL IRON BINDING CAPACITY (TIBC)2018-07-06 13:56:24 Test Item Value Reference Range Comments Iron Binding Capacity, total (test code = 2500-7) 291 ug/dL 250-450 Transferrin Saturation (%) (test code = 2502-3) 25 % 20-50 [id number] 13:56:24 Test Item Value Reference Range Comments Phosphorus (test code = 2777-1) 5.5 mg/dL 2.6-4.7 Lab Interpretation (test code = 10624-0) Abnormal LIPID [id number] 11:24:38 Test Item Value Reference Range Comments Cholesterol, Total (test code = 283 mg/dL 885-946 4626-3) Triglycerides (test code = 96 mg/dL 35-150 2571-8) Cholesterol, HDL (test code = 112 mg/dL 40-59 2085-9) Cholesterol, LDL (test code = 152 mg/dL 0-129 76408-0) Cholesterol, Total/HDL (test 2.5 mg/dL NO NORMAL RANGES ESTABLISHED code = 9830-1) Lab Interpretation (test code = Abnormal 59753-0) [id number] 11:22:02 Test Item Value Reference Range Comments Transferrin (test code = 3034-6) 230 mg/dL 202-364 HEMOGLOBIN A1C (GLYCOSYLATED)2018-07-06 11:19:27 Test Item Value Reference Range Comments Hemoglobin A1c (test code = 4548-4) 5.4 % 4.5-6.2 URINALYSIS, [id number] 10:56:26 Test Item Value Reference Range Comments Appearance, urine (test code = 5767-9) CLEAR CLEAR^THAD AR Color, urine (test code = 5778-6) YELLOW YEL^YELLOW Specific Jay, urine (test code = 5811-5) 1.025 1.0 08-1.022 pH, urine (test code = 5803-2) 6.5 5.0-8.0 Protein, urine (test code = 5804-0) 100 NEG^NEG Glucose, urine (test code = 5792-7) 100 NEG^NEG Ketones, urine (test code = 5797-6) NEG NEG^NEG Hemoglobin, urine (test code = 5794-3) TRACE NEG^NEG Urobilinogen, urine (test code = 37587-7) 0.2 0.2-1. 0 Bilirubin, urine (test code = 5770-3) NEG NEG^NEG Nitrites, urine (test code = 5802-4) NEG NEG^NEG Leukocyte Esterase, urine (test code = 5799-2) TRACE N EG^NEG RBC, urine (test code = 65342-2) 11-20 0- 2 /HPF WBC, urine (test code = 5821-4) 0-2 0- 2 /HPF Epithelial Cells, urine (test code = 5787-7) FEW NON E^NONE /HPF Casts, Fine Granular, urine (test code = 45985-2) 0-2 /LPF Lab Interpretation (test code = 83412-4) Abnormal CBC WITH [id number] 10:45:22 Test Item Value Reference Range Comments WBC (test code = 6690-2) 3.91 k/uL 4.8- 10.8 k/uL RBC (test code = 789-8) 3.00 M/uL 3.8- 5.1 M/uL Hemoglobin (test code = 718-7) 9.5 g/dL 12-16 Hematocrit (calc.) (test code = 4544-3) 29.1 % 37-47 MCV (test code = 787-2) 97.0 fL 80-98 MCH (test code = 785-6) 31.7 pg 27-32 MCHC (calc.) (test code = 786-4) 32.6 g/dL 33-36 RDW (test code = 788-0) 16.1 % 11-14.4 Platelet (test code = 777-3) 133 k/uL 130- 400 k/uL Mean Platelet Volume (test code = 05195-6) 10.1 fL 7.4-1 0.4 Neutrophil (%) (test code = 29132-7) 43 % 21-69 Eosinophil (%) (test code = 713-8) 4 % 0-3 Basophil (%) (test code = 706-2) 0 % 0-1 Monocyte (%) (test code = 5905-5) 12 % 3.5-12 Lymphocyte (%) (test code = 736-9) 40 % 21-46 Immature Granulocytes (%) (test code = 81053-0) 1 % Neutrophil (#) (test code = 69381-1) 1.71 k/uL 2.2- 4.8 k/ uL Lymphocyte (#) (test code = 731-0) 1.56 k/uL 1.3- 2.9 k/uL Monocyte (#) (test code = 742-7) 0.47 k/uL 0.1- 0.6 k/uL Eosinophil (#) (test code = 711-2) 0.14 k/uL 0.0- 0.5 k/uL Basophil (#) (test code = 704-7) 0.01 k/uL 0.0- 0.1 k/uL Immature Granulocytes (#) (test code = 41908-2) 0.02 k/uL k/uL Lab Interpretation (test code = 42470-7) Abnormal INTACT PTH - [id number] 18:01:18 Test Item Value Reference Range Comments Parathyroid Hor PTH Intact Serum (test code = 19.0 pg/mL 8. 7-77.1 2731-8) [id number] 12:00:42 Test Item Value Reference Range Comments Magnesium (test code = 16863-6) 2.3 mg/dL 1.8-2.4 [id number] 12:00:42 Test Item Value Reference Range Comments Phosphorus (test code = 2777-1) 4.4 mg/dL 2.6-4.7 URINALYSIS, [id number] 11:42:04 Test Item Value Reference Range Comments Appearance, urine (test code = 5767-9) CLEAR CLEAR^THAD AR Color, urine (test code = 5778-6) ORANGE YEL^YELLOW Specific Jay, urine (test code = 5811-5) 1.020 1.0 08-1.022 pH, urine (test code = 5803-2) 6.0 5.0-8.0 Protein, urine (test code = 5804-0) 100 NEG^NEG Glucose, urine (test code = 5792-7) 100 NEG^NEG Ketones, urine (test code = 5797-6) NEG NEG^NEG Hemoglobin, urine (test code = 5794-3) TRACE NEG^NEG Urobilinogen, urine (test code = 28073-4) 0.2 0.2-1. 0 Bilirubin, urine (test code = 5770-3) NEG NEG^NEG Nitrites, urine (test code = 5802-4) NEG NEG^NEG Leukocyte Esterase, urine (test code = 5799-2) TRACE N EG^NEG RBC, urine (test code = 88940-0) 0-2 0- 2 /HPF WBC, urine (test code = 5821-4) 3-5 0- 2 /HPF Epithelial Cells, urine (test code = 5787-7) SMALL NON E^NONE /HPF Lab Interpretation (test code = 65053-6) Abnormal [id number] 11:40:38 Test Item Value Reference Range Comments Hemoglobin (test code = 718-7) 11.5 g/dL 12-16 Lab Interpretation (test code = 94965-0) Abnormal [id number] 11:40:38 Test Item Value Reference Range Comments Hematocrit (calc.) (test code = 4544-3) 34.3 % 37-47 Lab Interpretation (test code = 43942-2) Abnormal INTACT PTH - [id number] 19:02:15 Test Item Value Reference Range Comments Parathyroid Hor PTH Intact Serum (test code = 29.8 pg/mL 8. 7-77.1 2731-8) COMPREHENSIVE METABOLIC [id number] 12:00:18 Test Item Value Reference Range Comments Sodium (test code = 2951-2) 142 mEq/L 136- 145 mEq/L Potassium (test code = 2823-3) 4.1 mEq/L 3.5- 5.1 mEq/L Chloride (test code = 2075-0) 105 mEq/L 98- 107 mEq/L Bicarbonate (TCO2) (test code = 2027-9) 29 mEq/L 21- 32 m Eq/L Calcium (test code = 53793-9) 9.4 mg/dL 8.5-10.1 Glucose (test code = 2345-7) 93 mg/dL 74-106 BUN (test code = 3094-0) 40 mg/dL 7-18 Protein, Total (test code = 2885-2) 6.8 g/dL 6.4-8.2 Albumin (test code = 1751-7) 2.7 g/dL 3.4-5 Bilirubin, Total (test code = 1975-2) 0.3 mg/dL 0.2-1 Alkaline Phosphatase (test code = 61 U/L 46-116 6768-6) AST (SGOT) (test code = 1920-8) 13 U/L 15-37 Creatinine (test code = 2160-0) 5.41 mg/dL 0.55-1.3 Anion Gap (calc.) (test code = 83381-0) 8 mEq/L 5- 15 mE q/L ALT (SGPT) (test code = 1742-6) 13 U/L 12-78 BUN/Creatinine (test code = 3097-3) 7.4 mg/dL Osmolality (calc) (test code = 92091-4) 293 mOsmol/kg 273- 304 mOsmol/kg Globulin (calc.) (test code = 28725-8) 4.1 g/dL Albumin / Globulin (test code = 1759-0) 0.66 GFR, non-AA, (est.) (test code = 9 mL/Min/1.73 m2 >59 mL/Min/1.7 3 m2 00815-8) GFR, AA, (est.) (test code = 88135-2) 11 mL/Min/1.73 m2 >59 mL/M in/1.73 m2 Lab Interpretation (test code = Abnormal 40615-4) [id number] 12:00:18 Test Item Value Reference Range Comments Magnesium (test code = 26957-6) 2.2 mg/dL 1.8-2.4 [id number] 12:00:18 Test Item Value Reference Range Comments Phosphorus (test code = 2777-1) 5.3 mg/dL 2.6-4.7 Lab Interpretation (test code = 07711-4) Abnormal URINALYSIS, [id number] 11:25:56 Test Item Value Reference Range Comments Appearance, urine (test code = 5767-9) CLEAR CLEAR^THAD AR Color, urine (test code = 5778-6) YELLOW YEL^YELLOW Specific Jay, urine (test code = 5811-5) 1.025 1.0 08-1.022 pH, urine (test code = 5803-2) 6.0 5.0-8.0 Protein, urine (test code = 5804-0) 100 NEG^NEG Glucose, urine (test code = 5792-7) NEG NEG^NEG Ketones, urine (test code = 5797-6) NEG NEG^NEG Hemoglobin, urine (test code = 5794-3) NEG NEG^NEG Urobilinogen, urine (test code = 24517-0) 0.2 0.2-1. 0 Bilirubin, urine (test code = 5770-3) NEG NEG^NEG Nitrites, urine (test code = 5802-4) NEG NEG^NEG Leukocyte Esterase, urine (test code = 5799-2) NEG N EG^NEG RBC, urine (test code = 45763-6) 0-2 0- 2 /HPF WBC, urine (test code = 5821-4) 6-10 0- 2 /HPF Epithelial Cells, urine (test code = 5787-7) FEW NON E^NONE /HPF Lab Interpretation (test code = 05287-7) Abnormal CBC WITHOUT [id number] 11:16:04 Test Item Value Reference Range Comments WBC (test code = 6690-2) 4.41 k/uL 4.8- 10.8 k/uL RBC (test code = 789-8) 3.62 M/uL 3.8- 5.1 M/uL Hemoglobin (test code = 718-7) 11.3 g/dL 12-16 Hematocrit (calc.) (test code = 4544-3) 33.3 % 37-47 MCV (test code = 787-2) 92 fL 80-98 MCH (test code = 785-6) 31.2 pg 27-32 MCHC (calc.) (test code = 786-4) 33.9 g/dL 33-36 RDW (test code = 788-0) 13.4 % 11-14.4 Platelet (test code = 777-3) 161 k/uL 130- 400 k/uL Mean Platelet Volume (test code = 16318-6) 10.2 fL 7.4-1 0.4 Lab Interpretation (test code = 43436-0) Abnormal BASIC METABOLIC [id number] 10:08:00 Test Item Value Reference Range Comments BUN (test code = 3094-0) 46 mg/dL 7-18 Sodium (test code = 2951-2) 138 mEq/L 136-145 Potassium (test code = 2823-3) 3.9 mEq/L 3.5-5.1 Chloride (test code = 2075-0) 102 mEq/L 98-107 Bicarbonate (TCO2) (test code = 8-9) 30 mEq/L 21-32 Glucose (test code = 2345-7) 134 mg/dL 74-106 Creatinine (test code = 2160-0) 5.33 mg/dL 0.55-1.3 Anion Gap (calc.) (test code = 34993-0) 6 mEq/L 5-15 Calcium (test code = 96866-4) 9.8 mg/dL 8.5-10.1 BUN/Creatinine (test code = 3097-3) 8.6 mg/dL Osmolality (calc) (test code = 48444-3) 290 mOsmol/kg 273-304 GFR, non-AA, (est.) (test code = 62715-4) 9 mL/Min/1.73 m2 >59 GFR, AA, (est.) (test code = 91100-0) 11 mL/Min/1.73 m2 >59 Lab Interpretation (test code = 39242-0) Abnormal [id number] 10:08:00 Test Item Value Reference Range Comments Ferritin (test code = 2276-4) 342 ng/mL 8-252 Lab Interpretation (test code = 07034-8) Abnormal [id number] 10:08:00 Test Item Value Reference Range Comments Magnesium (test code = 50302-6) 2.3 mg/dL 1.8-2.4 [id number] 10:08:00 Test Item Value Reference Range Comments Phosphorus (test code = 2777-1) 5.6 mg/dL 2.6-4.7 Lab Interpretation (test code = 21877-4) Abnormal TOTAL IRON BINDING CAPACITY (TIBC)2018-01-20 10:08:00 Test Item Value Reference Range Comments Iron Binding Capacity, total (test code = 2500-7) 300 ug/dL 250-450 Transferrin Saturation (%) (test code = 2502-3) 30 % 20-50 INTACT PTH - [id number] 10:08:00 Test Item Value Reference Range Comments Parathyroid Hor PTH Intact Serum (test code = 27.8 pg/mL 8. 7-77.1 2731-8) URINALYSIS, [id number] 10:08:00 Test Item Value Reference Range Comments Appearance, urine (test code = 5767-9) CLEAR CLEAR^THAD AR Color, urine (test code = 5778-6) YELLOW YEL^YELLOW Specific Jay, urine (test code = 5811-5) 1.025 1 1.0 08-1.022 pH, urine (test code = 5803-2) 6.0 1 5.0-8.0 Protein, urine (test code = 5804-0) 100 1 NEG^NEG Glucose, urine (test code = 5792-7) 250 1 NEG^NEG Ketones, urine (test code = 5797-6) NEG NEG^NEG Hemoglobin, urine (test code = 5794-3) TRACE NEG^NEG Urobilinogen, urine (test code = 09750-4) 0.2 1 0.2-1. 0 Bilirubin, urine (test code = 5770-3) NEG NEG^NEG Nitrites, urine (test code = 5802-4) NEG NEG^NEG Leukocyte Esterase, urine (test code = 5799-2) TRACE N EG^NEG RBC, urine (test code = 42091-2) 0-2 0- 2 /HPF WBC, urine (test code = 5821-4) 6-10 0- 2 /HPF Epithelial Cells, urine (test code = 5787-7) FEW NON E^NONE /HPF Lab Interpretation (test code = 27078-1) Abnormal [id number] 10:08:00 Test Item Value Reference Range Comments Hemoglobin (test code = 718-7) 10.9 g/dL 12-16 Lab Interpretation (test code = 33575-1) Abnormal [id number] 10:08:00 Test Item Value Reference Range Comments Hematocrit (calc.) (test code = 4544-3) 31.6 % 37-47 Lab Interpretation (test code = 27472-8) Abnormal PROTEIN/CREATININE RATIO, [id number] 10:08:00 Test Item Value Reference Range Comments Protein, Total, urine (test code = 2888-6) 132.5 mg/dL 0-11. 9 Creatinine, urine (test code = 2161-8) 79.54 mg/dL Protein/Creatinine, urine (test code = 2890-2) 1.7 1 0 -200 Lab Interpretation (test code = 30365-7) Abnormal [id number] 10:08:00 Test Item Value Reference Range Comments Iron (test code = 2498-4) 90 ug/dL 50-170 URINALYSIS, [id number] 11:45:00 Test Item Value Reference Range Comments Appearance, urine (test code = 5767-9) CLEAR CLEAR^THAD AR Color, urine (test code = 5778-6) YELLOW YEL^YELLOW Specific Jay, urine (test code = 5811-5) 1.025 1 1.0 08-1.022 pH, urine (test code = 5803-2) 5.5 1 5.0-8.0 Protein, urine (test code = 5804-0) 100 1 NEG^NEG Glucose, urine (test code = 5792-7) NEG NEG^NEG Ketones, urine (test code = 5797-6) NEG NEG^NEG Hemoglobin, urine (test code = 5794-3) TRACE NEG^NEG Urobilinogen, urine (test code = 25458-3) 0.2 1 0.2-1. 0 Bilirubin, urine (test code = 5770-3) NEG NEG^NEG Nitrites, urine (test code = 5802-4) NEG NEG^NEG Leukocyte Esterase, urine (test code = 5799-2) SMALL N EG^NEG RBC, urine (test code = 94784-0) 0-2 0- 2 /HPF WBC, urine (test code = 5821-4) 21-50 0- 2 /HPF Epithelial Cells, urine (test code = 5787-7) FEW NON E^NONE /HPF Bacteria, urine (test code = 63937-6) FEW Lab Interpretation (test code = 97911-2) Abnormal PROTEIN/CREATININE RATIO, [id number] 11:45:00 Test Item Value Reference Range Comments Protein, Total, urine (test code = 2888-6) 145.3 mg/dL 0-11. 9 Creatinine, urine (test code = 2161-8) 91.01 mg/dL Protein/Creatinine, urine (test code = 2890-2) 1.6 1 0 -200 Lab Interpretation (test code = 17883-5) Abnormal [id number] 11:28:00 Test Item Value Reference Range Comments Ferritin (test code = 2276-4) 544 ng/mL 8-252 Lab Interpretation (test code = 69445-4) Abnormal [id number] 11:28:00 Test Item Value Reference Range Comments Magnesium (test code = 40200-8) 1.9 mg/dL 1.8-2.4 [id number] 11:28:00 Test Item Value Reference Range Comments Phosphorus (test code = 2777-1) 5.1 mg/dL 2.6-4.7 Lab Interpretation (test code = 08477-2) Abnormal TOTAL IRON BINDING CAPACITY (TIBC)2017-12-14 11:28:00 Test Item Value Reference Range Comments Iron Binding Capacity, total (test code = 2500-7) 277 ug/dL 250-450 Transferrin Saturation (%) (test code = 2502-3) 34 % 20-50 INTACT PTH - [id number] 11:28:00 Test Item Value Reference Range Comments Parathyroid Hor PTH Intact Serum (test code = 53.3 pg/mL 8. 7-77.1 2731-8) [id number] 11:28:00 Test Item Value Reference Range Comments Hemoglobin (test code = 718-7) 10.9 g/dL 12-16 Lab Interpretation (test code = 06361-8) Abnormal [id number] 11:28:00 Test Item Value Reference Range Comments Hematocrit (calc.) (test code = 4544-3) 31.8 % 37-47 Lab Interpretation (test code = 06563-3) Abnormal BASIC METABOLIC [id number] 11:28:00 Test Item Value Reference Range Comments BUN (test code = 3094-0) 48 mg/dL 7-18 Sodium (test code = 2951-2) 139 mEq/L 136-145 Potassium (test code = 2823-3) 4.0 mEq/L 3.5-5.1 Chloride (test code = 2075-0) 103 mEq/L 98-107 Bicarbonate (TCO2) (test code = 2027-9) 30 mEq/L 21-32 Glucose (test code = 2345-7) 159 mg/dL 74-106 Creatinine (test code = 2160-0) 4.48 mg/dL 0.55-1.3 Anion Gap (calc.) (test code = 63377-4) 6 mEq/L 5-15 Calcium (test code = 50373-9) 9.2 mg/dL 8.5-10.1 BUN/Creatinine (test code = 3097-3) 10.7 mg/dL Osmolality (calc) (test code = 22687-8) 294 mOsmol/kg 273-304 GFR, non-AA, (est.) (test code = 81297-6) 11 mL/Min/1.73 m2 >59 GFR, AA, (est.) (test code = 80001-9) 13 mL/Min/1.73 m2 >59 Lab Interpretation (test code = 44512-8) Abnormal [id number] 11:28:00 Test Item Value Reference Range Comments Iron (test code = 2498-4) 93 ug/dL 50-170 Assessments Condition Name Status Diagnosis Date Treating Clinici an Pain in right shoulder Active Primary osteoarthritis, right shoulder Active Spondylolysis, cervical region Active Cervicalgia Active Primary osteoarthritis, right shoulder Active Spondylolysis, cervical region Active Cervicalgia Active Pain in right shoulder Active Generalized (acute) peritonitis Active 0 Migraine, unsp, not intractable, without Active status migrainosus Lumbago with sciatica, left side Active Lumbago with sciatica, right side Active Body mass index (BMI) 40.0-44.9, adult Active Pre-operative cardiovascular examination Unknown Weakness Active 0 End stage renal disease Active 0 End stage renal disease Active 0 Chronic kidney disease, unspecified Active Chronic kidney disease, unspecified Active Chronic kidney disease, stage V ([facility]) Active Chronic kidney disease, stage 5 Active Chronic kidney disease, stage V ([facility]/HCC) Active Chronic kidney disease, stage 5 Active Awaiting transplantation of kidney Unknown Chest pain, unspecified type Unknown Awaiting transplantation of kidney Unknown Awaiting organ transplant status Unknown Intractable migraine with aura without Unknown status migrainosus Double vision Unknown Unilateral weakness Unknown Hypertension, uncontrolled Unknown End-stage renal disease ([facility]) Unknown Morbid obesity with BMI of 40.0-44.9 ([facility]) Unknown Pre-transplant evaluation for kidney Unknown transplant Stroke-like symptoms Unknown Closed head injury, initial encounter Unknown Anemia, unspecified type Unknown Diabetes mellitus without complication Unknown ([facility]) End-stage renal disease ([facility]) Unknown Anemia due to stage 5 chronic kidney Unknown disease ([facility]) Hypertension, uncontrolled Unknown Migraine headache Unknown Right sided weakness Unknown Pre-transplant evaluation for kidney Unknown transplant ESRD on dialysis ([facility]) Unknown Other chronic pain Unknown Type 2 diabetes mellitus without Unknown complication, without long-term current use of insulin ([facility]) Awaiting transplantation of kidney Unknown ESRD (end stage renal disease) ([facility]) Unknown Complication of vascular access for Unknown dialysis, initial encounter Encounter for screening for other viral Unknown diseases Awaiting organ transplant status Unknown Awaiting organ transplant status Unknown Type 2 diabetes mellitus without Unknown complication, without long-term current use of insulin ([facility]) Advance Directives Directive Decision Effective Date Termination Date Comments Patient has advance care planning N/A documents on file. For more information, please contact:[employer] [place] [phone] Encounters Start End Encounter Admission Attending Care Care Encounter Date/Time Date/Time Type Type Clinicians Facility Department ID 2020-02-14 2020-02-14 Outpatient Aron LORD, [place] [id number] 12:55:00 12:55:00 [facility] [id number] C \\T\\ Sports [id number] [place] [id number] 2020-02-06 2020-02-06 Outpatient DEANNA [facility] [id number] 09:45:03 10:43:08 BHAVIN 2020-01-23 2020-01-23 Outpatient [facility] [id number] 00:00:00 00:00:00 2020-01-22 2020-01-22 Outpatient [facility] [id number] 00:00:00 00:00:00 2020-01-18 2020-01-18 Outpatient [facility] [id number] 00:00:00 00:00:00 2020-01-16 2020-01-17 Outpatient BECKI AREVALO [facility] [id number] 18:34:00 21:47:00 2020-01-16 2020-01-16 Outpatient THO TRISTANHS [facility] [id number] 16:16:41 18:16:53 DOUG 2020-01-16 2020-01-16 Outpatient [facility] [id number] 11:47:38 15:35:15 2020-01-16 2020-01-16 Outpatient JOHN [facility] [id number] 11:43:55 15:34:17 FERNY 2020-01-16 2020-01-16 Outpatient [facility] [id number] 11:48:41 11:48:41 2020-01-16 2020-01-16 Outpatient DOROTHY [facility] [id number] 11:46:24 11:46:24 RENAE 2020-01-16 2020-01-16 Outpatient [facility] [id number] 00:00:00 00:00:00 2020-01-10 2020-01-10 Outpatient [facility] [id number] 00:00:00 00:00:00 2020-01-10 2020-01-10 Outpatient [facility] [id number] 00:00:00 00:00:00 2020-01-08 2020-01-08 Outpatient [facility] [id number] 00:00:00 00:00:00 2020-01-08 2020-01-08 Outpatient [facility] [id number] 00:00:00 00:00:00 2020-01-01 2020-01-01 Outpatient Aron LORD, [facility] [id number] 12:45:00 12:45:00 [facility] [id number] C \\T\\ Sports [id number] [place] [id number] 2020-01-01 2020-01-01 Outpatient [facility] [id number] 00:00:00 00:00:00 2019-12-31 2019-12-31 Outpatient [facility] [id number] 00:00:00 00:00:00 2019-12-28 2019-12-29 Emergency VERONICAWSUSHMA, [facility] [id number] 12:47:00 08:50:00 VANDANA 2019-12-28 2019-12-28 Outpatient [facility] [id number] 08:22:27 17:21:37 2019-12-28 2019-12-28 Outpatient [facility] [id number] 07:48:23 15:02:22 2019-12-28 2019-12-28 Outpatient [facility] [id number] 07:46:30 13:00:10 2019-12-28 2019-12-28 Outpatient ADAM, [facility] DU [id number] 08:40:00 12:46:00 MARLIN 2019-12-28 2019-12-28 Outpatient ADAM, [facility] DU [id number] 08:29:42 08:39:00 MARLIN 2019-12-28 2019-12-28 Outpatient [facility] [id number] 08:37:25 08:37:25 2019-12-28 2019-12-28 Outpatient [facility] [id number] 08:24:08 08:24:08 2019-12-28 2019-12-28 Outpatient [facility] [id number] 07:49:30 07:49:30 2019-12-28 2019-12-28 Outpatient [facility] [id number] 00:00:00 00:00:00 2019-12-28 2019-12-28 Outpatient [facility] [id number] 00:00:00 00:00:00 2019-12-21 2019-12-21 Outpatient [facility] [id number] 00:00:00 00:00:00 2019-12-08 2019-12-08 E 1 Kody Phillips [facility] [id number] 05:41:30 12:28:00 Kody Phillips 2019-12-06 2019-12-06 Outpatient YANETH ADAM [facility] [id number] 15:19:45 23:59:00 MARLIN 2019-11-17 2019-11-18 V 1 Thais Grant [facility] 2 [id number] 13:49:13 15:37:00 Thais Grant 2019-11-06 2019-11-16 I 1 Thais Grant [facility] 2 [id number] 22:40:00 14:00:00 Thais Grant 2019-11-13 2019-11-13 Outpatient [facility] [id number] 00:00:00 00:00:00 2019-11-05 2019-11-05 E 1 Skinny Alamo [facility] [id number] 05:11:11 10:15:00 Skinny Alamo 2019-11-02 2019-11-02 Outpatient Cassi Cole [facility] Jacksonnicola mendieta [id number] 10:15:00 10:15:00 Children [id number] s [id number] and [id number], 2019-10-27 2019-10-27 [facility] [id number] 00:00:00 00:00:00 2019-10-27 2019-10-27 [facility] [id number] 00:00:00 00:00:00 2019-10-27 2019-10-27 [facility] [id number] 00:00:00 00:00:00 2019-10-27 2019-10-27 [facility] [id number] 00:00:00 00:00:00 2019-10-26 2019-10-26 [facility] [id number] 00:00:00 00:00:00 2019-10-10 2019-10-10 Out[facility] [id number] 08:30:00 17:08:00 2019-10-07 2019-10-07 Outpatient [facility] [id number] 10:18:14 23:59:00 2019-10-07 2019-10-07 Outpatient NEVILLE NUNEZ [id number] 04:00:00 04:00:00 MARGO 2019-09-20 2019-09-20 Outpatient YANETH ADAM [facility] [id number] 00:00:00 23:59:00 MARLIN 2019-09-19 2019-09-20 E 1 Natalie Martinez [facility] [id number] 19:46:34 05:30:00 Natalie Martinez 2019-09-13 2019-09-16 I 1 Michael Pandey [facility] 2 [id number] 13:54:30 14:18:00 Michael Pandey 2019-09-12 2019-09-12 E 1 Skinny Alamo [facility] [id number] 11:06:52 15:04:00 Skinny Alamo 2019-08-30 2019-08-30 E 1 Margo Ibarra [facility] 20 [id number] 11:15:28 15:20:00 Margo Ibarra 2019-05-29 2019-05-29 E 1 Isaiah Benitez [facility] [id number] 10:56:18 16:01:00 Isaiah Benitez 2019-05-24 2019-05-24 E 1 Margo Ingram [facility] [id number] 01:44:13 10:33:00 Margo Ingram 2019-05-13 2019-05-17 I 1 Jaun Stanley [facility] [id number] 10:27:06 12:20:00 Jaun Stanley 2019-04-20 2019-04-20 E 1 Margo Ibarra [facility] 20 [id number] 10:48:48 14:20:00 Margo Ibarra 2019-04-03 2019-04-03 Q [facility] [id number] 13:52:41 13:52:41 2019-04-03 2019-04-03 Q [facility] [id number] 13:52:41 13:52:41 2019-03-22 2019-03-23 E 1 Nilton Farris [facility] 2 [id number] 19:40:36 00:54:00 Nilton Farris 2019-03-18 2019-03-18 E 1 Margo Ibarra [facility] 20 [id number] 12:45:55 17:30:00 Margo Ibarra 2019-03-02 2019-03-02 Katherine Danny Paredes [facility] [id number] 06:16:10 13:40:00 Danny Choudhary 2019-02-24 2019-02-25 Katherine India Choudhary Danny [facility] [id number] 14:15:07 23:59:59 Danny Choudhary 2019-01-30 2019-01-30 E 1 Diya Avina [facility] 20 [id number] 11:20:48 15:55:00 Diya Avina 2018-08-24 2018-08-24 Outpatient [facility] [id number] 13:53:04 23:59:00 2018-08-18 2018-08-18 Paloma ALY [facility] [id number] 04:00:00 04:00:00 REINA 2018-07-06 2018-07-06 Outpatient [facility] [id number] 09:00:00 23:59:00 2018-06-30 2018-06-30 Paloma ALY [facility] [id number] 04:00:00 04:00:00 REINA 2018-04-29 2018-04-29 Paloma ALY [facility] [id number] 10:50:33 23:59:00 REINA 2018-04-29 2018-04-29 Outpatient [facility] [id number] 10:50:33 23:59:00 2018-03-16 2018-03-16 Outpatient SHEEBA [facility] [id number] 11:00:00 23:59:00 REINA 2018-03-16 2018-03-16 Outpatient [facility] [id number] 11:00:00 23:59:00 2018-03-16 2018-03-16 MARGUERITE GRULLON [facility] [id number] 10:00:00 10:59:00 2018-03-16 2018-03-16 Outpatient [facility] [id number] 10:00:00 10:59:00 2018-01-20 2018-01-20 MARGUERITE GRULLON [facility] [id number] 10:00:00 23:59:00 2018-01-20 2018-01-20 Outpatient [facility] [id number] 10:00:00 23:59:00 2017-12-14 2017-12-14 Paloma TELLO MARGUERITE [facility] [id number] 11:19:04 23:59:00 2017-12-14 2017-12-14 Outpatient [facility] [id number] 11:19:04 23:59:00 2017-09-02 2017-09-02 Outpatient Andrew KELLEY [facility] [id number] 04:00:00 04:00:00 [place] 2017-08-12 2017-08-12 Outpatient [facility] [id number] 00:00:00 23:59:00 MARLIN Family History Family Member Diagnosis Comments Start Date Stop Date Natural father High blood pressure (Hypertension) Natural mother Heart disease Natural mother High blood pressure (Hypertension) Immunizations Ordered Immunization Filled Immunization Date Status Commen ts Refusal Reason Name Name influenza virus 2016-01-17 Completed vaccine, inactivated 08:02:27 pneumococcal 2009-02-05 Completed 23-valent vaccine 18:09:53 influenza virus 2009-02-05 Completed vaccine, inactivated 18:09:53 Payers Payer Name Policy Type Policy Number Effective Date Expiration D ate [employer] [id number] 00:00[id number] [employer]ICA[employer] ACCESS [id number] 2017 00:00:00 [id number] Plan of Treatment Planned Activity Planned Date Details Comments Future Scheduled Test [code = ] Future Scheduled Test [code = ] Future Scheduled Test [code = ] Future Scheduled Test [code = ] Future Scheduled Test [code = ] Future Scheduled Test [code = ] Future Scheduled Test [code = ] Future Scheduled Test [code = ] Future Scheduled Test [code = ] Future Scheduled Test [code = ] Future Scheduled Test [code = ] Future Scheduled Test [code = ] Future Scheduled Test [code = ] Future Scheduled Test [code = ] Future Scheduled Test [code = ] Future Scheduled Test [code = ] Future Scheduled Test [code = ] Future Scheduled Test [code = ] Future Scheduled Test [code = ] Future Scheduled Test [code = ] Future Scheduled Test [code = ] Future Scheduled Test [code = ] Future Scheduled Test [code = ] Future Scheduled Test [code = ] Future Scheduled Test [code = ] Future Scheduled Test [code = ] Future Scheduled Test [code = ] Future Scheduled Test [code = ] Future Scheduled Test [code = ] Future Scheduled Test [code = ] Future Scheduled Test [code = ] Future Scheduled Test [code = ] Future Scheduled Test [code = ] Future Scheduled Test [code = ] Future Scheduled Test [code = ] Future Scheduled Test [code = ] Future Scheduled Test [code = ] Future Scheduled Test [code = ] Future Scheduled Test [code = ] Future Scheduled Test [code = ] Future Scheduled Test [code = ] Future Scheduled Test [code = ] Future Scheduled Test [code = ] Future Scheduled Test [code = ] Future Scheduled Test [code = ] Future Scheduled Test [code = ] Future Scheduled Test [code = ] Future Scheduled Test [code = ] Future Scheduled Test [code = ] Future Scheduled Test [code = ] Future Scheduled Test [code = ] Future Scheduled Test [code = ] Future Scheduled Test [code = ] Future Scheduled Test [code = ] Future Scheduled Test [code = ] Future Scheduled Test [code = ] Future Scheduled Test [code = ] Future Scheduled Test [code = ] Future Scheduled Test [code = ] Future Scheduled Test [code = ] Future Scheduled Test [code = ] Future Scheduled Test [code = ] Future Scheduled Test [code = ] Future Scheduled Test [code = ] Future Scheduled Test [code = ] Future Scheduled Test [code = ] Future Scheduled Test [code = ] Future Scheduled Test [code = ] Future Scheduled Test [code = ] Future Scheduled Test [code = ] Future Scheduled Test [code = ] Future Scheduled Test [code = ] Future Scheduled Test [code = ] Future Scheduled Test [code = ] Future Scheduled Test [code = ] Future Scheduled Test [code = ] Future Scheduled Test [code = ] Future Scheduled Test [code = ] Future Scheduled Test [code = ] Future Scheduled Test [code = ] Future Scheduled Test [code = ] Future Scheduled Test [code = ] Future Scheduled Test [code = ] Future Scheduled Test [code = ] Future Scheduled Test [code = ] Future Scheduled Test [code = ] Future Scheduled Test [code = ] Future Scheduled Test [code = ] Future Scheduled Test [code = ] Future Appointment 2020-03-18 13:00:00 Mike Ingram MD, [address] [place] [address] Instructions AttachmentsThe following attachments cannot be sent throu [facility] Everywhere.Cardiac Catheterization, discharge instructions ([place])Sedation, Procedural (Adult) ([place]) Instructions AttachmentsThe following attachments cannot be sent [facility] Everywhere.Cardiac Catheterization, discharge instructions ([place])Sedation, Procedural (Adult) ([place]) Social History Social Habit Start Date Stop Date Comments Exposure to SARS-CoV-2 (event) Tobacco use and exposure 2020-01-17 00:00:00 2020-01-17 00:00:00 Alcohol intake 2020-01-17 00:00:00 2020-01-17 00:00:00 Alcohol Comment 2019-07-10 00:00:00 2019-07-10 00:00:00 Smoking Status Start Date Stop Date Never smoker 2020-01-17 00:00:00 Social History Observation Description Sex Female Vital Signs Vital Name Observation Time Observation Value Comments Systolic blood pressure 2020-01-17 21:13:00 165 mm[Hg] Diastolic blood pressure 2020-01-17 21:13:00 104 mm[Hg] Heart rate 2020-01-17 20:53:00 96 /min Body temperature 2020-01-17 20:53:00 37.22 Sendy Respiratory rate 2020-01-17 20:53:00 16 /min Oxygen saturation in Arterial blood by 2020-01-17 20:53:00 99 % Pulse oximetry Body height 2020-01-16 18:46:00 157.5 cm Body weight 2020-01-16 18:46:00 99.8 kg BMI 2020-01-16 18:46:00 40.24 kg/m2 Systolic blood pressure 2020-01-16 16:36:00 141 mm[Hg] Diastolic blood pressure 2020-01-16 16:36:00 89 mm[Hg] Heart rate 2020-01-16 16:36:00 80 /min Body temperature 2020-01-16 16:36:00 36.89 Sendy Respiratory rate 2020-01-16 16:36:00 18 /min Body height 2020-01-16 16:36:00 157.5 cm Body weight 2020-01-16 16:36:00 99.4 kg BMI 2020-01-16 16:36:00 40.07 kg/m2 Oxygen saturation in Arterial blood by 2020-01-16 16:36:00 99 % Pulse oximetry Systolic blood pressure 2020-01-16 11:55:00 147 mm[Hg] Diastolic blood pressure 2020-01-16 11:55:00 90 mm[Hg] Heart rate 2020-01-16 11:55:00 86 /min Body temperature 2020-01-16 11:55:00 36.61 Sendy Body height 2020-01-16 11:55:00 157.5 cm Body weight 2020-01-16 11:55:00 99.4 kg BMI 2020-01-16 11:55:00 40.08 kg/m2 Systolic blood pressure 2020-01-16 12:53:00 147 mm[Hg] Diastolic blood pressure 2020-01-16 12:53:00 90 mm[Hg] Heart rate 2020-01-16 12:53:00 86 /min Body temperature 2020-01-16 12:53:00 36.61 Sendy Body height 2020-01-16 12:53:00 157.5 cm Body weight 2020-01-16 12:53:00 99.4 kg BMI 2020-01-16 12:53:00 40.07 kg/m2 Heart rate 2019-12-29 08:30:00 97 /min Respiratory rate 2019-12-29 08:30:00 18 /min Oxygen saturation in Arterial blood by 2019-12-29 08:30:00 99 % Pulse oximetry Systolic blood pressure 2019-12-29 07:50:00 126 mm[Hg] Diastolic blood pressure 2019-12-29 07:50:00 69 mm[Hg] Body temperature 2019-12-29 07:50:00 36.56 Sendy Body height 2019-11-13 09:00:00 157.5 cm Body weight 2019-11-13 09:00:00 98 kg BMI 2019-11-13 09:00:00 39.52 kg/m2 Systolic blood pressure 2020-01-17 21:13:00 165 mm[Hg] Diastolic blood pressure 2020-01-17 21:13:00 104 mm[Hg] Heart rate 2020-01-17 20:53:00 96 /min Body temperature 2020-01-17 20:53:00 37.22 Sendy Respiratory rate 2020-01-17 20:53:00 16 /min Oxygen saturation in Arterial blood by 2020-01-17 20:53:00 99 % Pulse oximetry Body height 2020-01-16 18:46:00 157.5 cm Body weight 2020-01-16 18:46:00 99.8 kg BMI 2020-01-16 18:46:00 40.24 kg/m2 Heart Rate Monitored 2019-12-08 12:27:00 93 /min Systolic Blood Pressure 2019-12-08 12:27:00 128 mm[Hg] Diastolic Blood Pressure 2019-12-08 12:27:00 73 mm[Hg] Temperature Oral 2019-12-08 12:27:00 36.7 Sendy Heart Rate Monitored 2019-12-08 11:00:00 87 /min Systolic Blood Pressure 2019-12-08 11:00:00 123 mm[Hg] Diastolic Blood Pressure 2019-12-08 11:00:00 97 mm[Hg] Heart Rate Monitored 2019-12-08 10:00:00 91 /min Systolic Blood Pressure 2019-12-08 10:00:00 146 mm[Hg] Diastolic Blood Pressure 2019-12-08 10:00:00 91 mm[Hg] Temperature Oral 2019-12-08 05:45:00 36.5 Sendy Peripheral Pulse Rate 2019-12-08 05:45:00 100 /min Respiratory Rate 2019-12-08 05:45:00 18 /min Temperature Oral 2019-11-18 12:00:00 37.2 Sendy Peripheral Pulse Rate 2019-11-18 12:00:00 122 /min Respiratory Rate 2019-11-18 12:00:00 18 /min Systolic Blood Pressure 2019-11-18 12:00:00 91 mm[Hg] Diastolic Blood Pressure 2019-11-18 12:00:00 53 mm[Hg] Temperature Oral 2019-11-18 07:00:00 37.3 Sendy Peripheral Pulse Rate 2019-11-18 07:00:00 121 /min Respiratory Rate 2019-11-18 07:00:00 18 /min Systolic Blood Pressure 2019-11-18 07:00:00 148 mm[Hg] Diastolic Blood Pressure 2019-11-18 07:00:00 88 mm[Hg] Systolic Blood Pressure 2019-11-18 04:00:00 122 mm[Hg] Diastolic Blood Pressure 2019-11-18 04:00:00 68 mm[Hg] Peripheral Pulse Rate 2019-11-18 04:00:00 102 /min Temperature Oral 2019-11-18 03:00:00 37.0 Sendy Respiratory Rate 2019-11-18 03:00:00 18 /min Heart Rate Monitored 2019-11-17 15:30:00 108 /min Temperature Oral 2019-11-16 12:29:00 37.3 Sendy Peripheral Pulse Rate 2019-11-16 12:29:00 93 /min Respiratory Rate 2019-11-16 12:29:00 18 /min Systolic Blood Pressure 2019-11-16 12:29:00 123 mm[Hg] Diastolic Blood Pressure 2019-11-16 12:29:00 55 mm[Hg] Systolic Blood Pressure 2019-11-16 09:00:00 126 mm[Hg] Diastolic Blood Pressure 2019-11-16 09:00:00 70 mm[Hg] Peripheral Pulse Rate 2019-11-16 09:00:00 90 /min Temperature Oral 2019-11-16 08:00:00 36.9 Sendy Peripheral Pulse Rate 2019-11-16 08:00:00 91 /min Respiratory Rate 2019-11-16 08:00:00 18 /min Systolic Blood Pressure 2019-11-16 08:00:00 95 mm[Hg] Diastolic Blood Pressure 2019-11-16 08:00:00 48 mm[Hg] Temperature Oral 2019-11-16 04:00:00 37.0 Sendy Respiratory Rate 2019-11-16 04:00:00 18 /min Temperature Axillary 2019-11-14 20:00:00 36.3 Sendy Systolic Blood Pressure Invasive 2019-11-14 17:30:00 89 mm[Hg] Temperature - Temporal Artery 2019-11-11 02:15:00 36.8 Sendy Temperature - Temporal Artery 2019-11-11 01:00:00 36.5 Sendy Temperature - Temporal Artery 2019-11-11 00:00:00 36.6 Sendy Heart Rate Monitored 2019-11-10 11:35:00 83 /min Heart Rate Monitored 2019-11-10 11:30:00 83 /min Heart Rate Monitored 2019-11-10 11:25:00 84 /min Apical Heart Rate 2019-11-10 08:45:00 81 /min Systolic blood pressure 2019-10-10 16:40:00 117 mm[Hg] Diastolic blood pressure 2019-10-10 16:40:00 87 mm[Hg] Heart rate 2019-10-10 16:40:00 103 /min Body temperature 2019-10-10 16:40:00 36.5 Sendy Respiratory rate 2019-10-10 16:40:00 20 /min Oxygen saturation in Arterial blood by 2019-10-10 16:40:00 98 % Pulse oximetry Body height 2019-10-10 09:00:00 158.5 cm Body weight 2019-10-10 09:00:00 97.614 kg BMI 2019-10-10 09:00:00 38.86 kg/m2 Hospital Discharge Instructions Patient Instructions Doug Tristan PA - 01/16/2020 4:20 PM EDTMigraine: -[facility] go [facility] further evaluation documented in this encounterPatient Instructions Ferny Lopez MD - 01/16/2020 12:30 PM EDT Thank you for choosing the [facility]. To move forward with your transplant evaluation, we need the items marked in the table below with a check-mil in the first colum. We are happy to work with you to schedule any of the required testing in the [facility] system, but for most tests, it is ok if you prefer to do them locally outside of [facility]. After talking with you at today's visit, we will plan to schedule the items indicated on the table below to be scheduled at [facility]. Please work with you other physicians to schedule items marked below to be done outside of [facility]. We will send a copy of this note to your referring doctor and dialysis unit (if applicable). However, we encourage you to take this sheet directly to your doctor/provider, so that s/he can start ordering these items (if you plan to get them done locally). We hope to move forward with your evaluation as quickly as possible. In order to do so, please try and have these items scheduled or completed within three months. Needed Tests Test or Consultation We will schedule these tests at [facility] Schedule these tests with your local doctors [] Colonoscopy [] [] [] Pap Smear [][] [] Mammogram [] [] [] Prostate Testing [] [] [] Echocardiogram [] [] [] Cardiac stress testing [][] [] CT Scan: type & indication [] [] [] Pulmonary Function Testing [] [] [] Cardiology Consultation [] [] [] Hepatology Consultation [] [] [] Urology Consultation [] [] [] Vascular Surgery Consult ation [] [] [] Other Consultation: specify [] [] [] Dental Exam/Clearance [] [] [] Voiding Cystourethrogram (VCUG) [] [] [] Medical Records: Specify what & from where [] [] [x] Other Requirements: 1. Med-psych to discuss depression management. 2. Neurology notes regarding head ache evaluation. [] [] [] No additional studies/consultations required [] [] If any of these items have been completed inthe last 12 months, please let us know. We would like to review these tests prior to repeating them.Please fax all results to: [phone], to the attention of your coordinator: Please consider ways to shorten your waiting time: * Living donation (always your best option for transplant!) * Increased risk kidney offers * Expanded criteria kidney offers * Multi-listing. For any questions, please call: [phone] documented in this encounterInstructions Stella Issa MD - 12/29/2019You were seen in the emergency department for your chest pain and nausea. We did a full workup which did not reveal any clear cause for your pain. We are discharging you home with medication to help with the nausea. Please follow up with your primary care provider. AttachmentsThe following attachments cannot be sent through Care Everywhere.Chest Pain (Engl stevo)documented in this encounterPatient Mwcrurook31/21/2020 11:25:07ACG Custom Custom ([id number]) ([id number])Discharge InstructionsReturn to the emergency department for fever, vomiting, worsening symptoms, difficulty breathing, any other c oncerns.If you are worsening, or not improving, return to the emergency department as soon as possible for a re-evaluation.We are always open, and would be happy to see you again.Follow Up Care12/08/2019 05:41:44With: Dialysis as scheduledAddress: UnknownWhen: Within 1 Day(s)With: Call your primary care physician for follow-upAddress: UnknownWhen: 2-4 daysWith: Return to the emergency departmentAddress: UnknownWhen: 1-2 daysonly if neededComments: for any concernsPatient Fmfyyqssg24/01/2020 14:23:51Nausea and Vomiting, Adult, Fubc-ih-WaarUnnnmo and Vomiting, AdultNausea is feeling sick to your stomach or feeling that you are about to throw up (vomit). Vomiting is when food in your stomach is thrown up and out of the mouth. Throwing up can make you feel weak. It can also make you lose too much water in your body (get dehydrated). If you lose too much water in your body, you may: Feel tired. Feel thirsty. Have a dry mouth. Have cracked lips. Go pee (urinate) less often.Older adults and people with other diseases or a weak body defense system (immune system) are at higher risk for losing too much water in the body. If you feel sick to your stomach and you throw up, it is important to follow instructions from your doctor about how to take care of yourself.Follow these instructions at home:Watch your symptoms for any changes. Tell your doctor about them. Follow these instructions to care for yourself at home.Eating and drinking Take an ORS (oral rehydration solution). This is a drink that is sold at pharmacies and stores. Drink clear fluids in small amounts as you are able, such as: Water. Ice chips. Fruit juice that has wateradded (diluted fruit juice). Low-calorie sports drinks. Eat bland, wuby-kx-nfopfy foods in smal l amounts as you are able, such as: Bananas. Applesauce. Rice. Low- fat (lean) meats. Fingal. Crackers. Avoid drinking fluids that have a lot of sugar or caffeine in them. This includes energy drinks, sports drinks, and soda. Avoid alcohol. Avoid spicy or fatty foods.General in structions Take coky-gff-zszfwmz and prescription medicines only as told by your doctor. Drinkenough fluid to keep your pee (urine) pale yellow. Wash your hands often with soap and water. If you cannot use soap and water, use hand food science professor. Make sure that all people in your home wash their hands well and often. Rest at home while you get better. Watch your condition for any changes. Take slow and deep breaths when you feel sick to your stomach. Keep all follow-up visits as told by your doctor. This is important.Contact a doctor if: Your symptoms get worse. You have new symptoms. You have a fever. You cannot drink fluids without throwing up. You feel sick toyour stomach for more than 2 days. You feel light-headed or dizzy. You have a headache. Youhave muscle cramps. You have a rash. You have pain while peeing.Get help right away if: Youhave pain in your chest, neck, arm, or jaw. You feel very weak or you pass out (faint). You throw up again and again. You have throw up that is bright red or looks like black coffee grounds. You have bloody or black poop (stools) or poop that looks like tar. You have a very bad headache, a stiff neck, or both. You have very bad pain, cramping, or bloating in your belly (abdomen).You have trouble breathing. You are breathing very quickly. Your heart is beating very quickly. Your skin feels cold and clammy. You feel confused. You have signs of losing too much water in your body, such as: Dark pee, very little pee, or no pee. Cracked lips. Dry mouth. Sunken eyes. Sleepiness. Weakness.These symptoms may be an emergency. Do not wait to see if the symptoms will go away. Get medical help right away. Call your local emergency services (911 in the [place] Do not drive yourself to the hospital.Summary Nausea is feeling sick to your stomach or feeling that you are about to throw up (vomit). Vomiting is when food in your stomach is thrown up and outof the mouth. Follow instructions from your doctor about eating and drinking to keep from losing too much water in your body. Take vcar-zou-ydmemrl and prescription medicines only as told by yourdoctor. Contact your doctor if your symptoms get worse or you have new symptoms. Keep all follow-up visits as told by your doctor. This is important.This information is not intended to replace advice given to you by your health care provider. Make sure you discuss any questions you have with your health care provider.Document Released: 09/21/2008 Document Revised: 09/13/2018 Document Reviewed: 09/13/2018Elsevier Interactive Patient Education ? 2019 [employer].11/18/2019 14:23:51Abdominal Pain, AdultAbdominal Pain, AdultAbdominal pain can be caused by many things. Often, abdominal pain is not serious and it gets better with no treatment or by being treated at home. However, sometimes abdominal pain is serious. Your health care provider will do a medical history and a physical exam to try to determine the cause of your abdominal pain.Follow these instructions at home: Take foor-zjt-tcafakl and prescription medicines only as told by your health care provider. Do not take a laxative unless told by your health care provider. Drink enough fluid to keep your urine clear or pale yellow. Watch your condition for any changes. Keep all follow-up visits as told by your health care provider. This is important.Contact a health care provider if: Your abdominal pain changes or gets worse. You are not hungry or you lose weight without trying. You are constipated or have diarrheafor more than 23 days. You have pain when you urinate or have a bowel movement. Your abdominal pain wakes you up at night. Your pain gets worse with meals, after eating, or with certain food s. You are throwing up and cannot keep anything down. You have a fever.Get help right away if: Your pain does not go away as soon as your health care provider told you to expect. You cannotstop throwing up. Your pain is only in areas of the abdomen, such as the right side or the left lower portion of the abdomen. You have bloody or black stools, or stools that look like tar. Youhave severe pain, cramping, or bloating in your abdomen. You have signs of dehydration, such as: Dark urine, very little urine, or no urine. Cracked lips. Dry mouth. Sunken eyes. Sleepiness. Weakness.This information is not intended to replace advice given to you by your health care provider. Make sure you discuss any questions you have with your health care provider.Document Released: 01/13/2006 Document Revised: 10/23/2016 Document Reviewed: 09/16/2016[employer] Interactive Patient Education ? 2019 [employer].11/18/2019 14:23:51Chronic Pain, AdultChronic Pain, AdultChronic pain is a type of pain that lasts or keeps coming back (recurs) for at least six months. You may have chronic headaches, abdominal pain, or body pain. Chronic pain may be related to an illness, such as fibromyalgia or complex regional pain syndrome. Sometimes the cause of chronic pain is not known.Chronic pain can make it hard for you to do daily activities. If not treated, chronic pain can lead to other health problems, including anxiety and depression. Treatment depends on the cause and severity of your pain. You may need to work with a pain specialist to come up with a treatment plan. The plan may include medicine, counseling, and physical therapy. Many people benefit from a combination of two or more types of treatment to control their pain.Follow these instructions at home:Lifestyle Considerkeeping a pain diary to share with your health care providers. Consider talking with a mental health care provider (psychologist) about how to cope with chronic pain. Consider joining a chronic pain support group. Try to control or lower your stress levels. Talk to your health care provider about strategies to do this.General instructions Take rzui-bfq-qlceews and prescription medicines only as told by your health care provider. Follow your treatment plan as told by your health care provider. This may include: Gentle, regular exercise. Eating a healthy diet that includes foods such as vegetables, fruits, fish, and lean meats. Cognitive or behavioral therapy. Working witha physical therapist. Meditation or yoga. Acupuncture or massage therapy. Aroma, color, light, or sound therapy. Local electrical stimulation. Shots (injections) of numbing or pain-relieving medicines into the spine or the area of pain. Check your pain level as told by your health care provider. Ask your health care provider if you should use a pain scale. Learn as much as you can about how to manage your chronic pain. Ask your health care provider if an intensive pain rehabilitation program or a chronic pain specialist would be helpful. Keep all follow-up visits as told by your health care provider. This is important.Contact a health care provider if: Your pain gets worse. You have new pain. You have trouble sleeping. You have trouble doing your normal activities. Your pain is not controlled with treatment. Your have side effects from pain medicine. You feel weak.Get help right away if: You lose feeling or have numbness in your body. You lose control of bowel or bladder function. Your pain suddenly gets much worse. You develop shaking or chills. You develop confusion. You develop chest pain. You have trouble breathing or shortn ess of breath. You pass out. You have thoughts about hurting yourself or others.This information is not intended to replace advice given to you by your health care provider. Make sure you discussany questions you have with your health care provider.Document Released: 12/26/2002 Document Revised: 12/03/2016 Document Reviewed: 09/22/2016[employer] Interactive Patient Education ? 2019 QuickPayFollow Up Care11/17/2019 13:49:33With: Schedule appointment with primary care provider within 1 week.Address: UnknownWhen: UnknownPatient Fdenzliir31/30/2020 13:33:29Incision Care, Adult, Bpvn-xn-IxsiTlhkikhi Care, AdultAn incision is a cut that a doctor makes in your skin for surgery (for a procedure). Most times, these cuts areclosed after surgery. Your cut from surgery may be closed with stitches (sutures), brook, skin glue, or skin tape (adhesive strips). You may need to return to your doctor to have stitches or brook taken out. This may happen many days or many weeks after your surgery. The cut needs to be well caredfor so it does not get infected.How to care for your cutCut care Follow instructions from your doctor about how to take care of your cut. Make sure you: Wash your hands with soap and water beforeyou change your bandage (dressing). If you cannot use soap and water, use hand food science professor. Change your bandage as told by your doctor. Leave stitches, skin glue, or skin tape in place. They may need to stay in place for 2 weeks or longer. If tape strips get loose and curl up, you may trim the loose edges. Do not remove tape strips completely unless your doctor says it is okay. Check your cut area every day for signs of infection. Check for: More redness, swelling, or pain. More fluid or blood. Warmth. Pus or a bad smell. Ask your doctor how to clean the cut. This may include: Using mild soap and water. Using a clean towel to pat the cut dry after you clean it. Putting a cream or ointment on the cut. Do this only as told by your doctor. Covering the cut with a clean bandage. Ask your doctor when you can leave the cut uncovered. Do not take baths, swim, or use a hot tub until your doctor says it is okay. Ask your doctor if you can take showers. You may only be allowed to take sponge baths for bathing.Medicines If you were prescribed an antibiotic medicine, cream, or ointment, take the antibiotic or put it on the cut as told by your doctor. Do not stoptaking or putting on the antibiotic even if your condition gets better. Take bqxm-qks-atzphov andprescription medicines only as told by your doctor.General instructions Limit movement around your cut. This helps healing. Avoid straining, lifting, or exercise for the first month, or for as long as told by your doctor. Follow instructions from your doctor about going back to your normal activities. Ask your doctor what activities are safe. Protect your cut from the sun when you are outside for the first 6 months, or for as long as told by your doctor. Put on sunscreen around the scar or cover up the scar. Keep all follow-up visits as told by your doctor. This is important.Contact a doctor if: Your have more redness, swelling, or pain around the cut. You have more fluid or blood coming from the cut. Your cut feels warm to the touch. You have pus or a bad smell coming from the cut. You have a fever or shaking chills. You feel sick to your stomach (nauseous) or you throw up (vomit). You are dizzy. Your stitches or brook come undone.Get help right awayif: You have a red streak coming from your cut. Your cut bleeds through the bandage and the bleeding does not stop with gentle pressure. The edges of your cut open up and separate. You havevery bad (severe) pain. You have a rash. You are confused. You pass out (faint). You have trouble breathing and you have a fast heartbeat.This information is not intended to replace advice given to you by your health care provider. Make sure you discuss any questions you have with your health care provider.Document Released: 06/27/2012 Document Revised: 12/11/2016 Document Reviewed: 12/11/2016[employer] Interactive Patient Education ? 2019 iExplore.11/16/2019 13:33:29Sore Throat, Lomz-lk-CwcbFoqi ThroatWhen you have a sore throat, your throat may feel: Tender. Burning. Irritat ed. Scratchy. Painful when you swallow. Painful when you talk.Many things can cause a sore throat, such as: An infection. Allergies. Dry air. Smoke or pollution. Radiation treatment. Gastroesophageal reflux disease (GERD). A tumor.A sore throat can be the first sign of another sickness. It can happen with other problems, like: Coughing. Sneezing. Fever. Swelling in the neck.Most sore throats go away without treatment.Follow these instructions at home: Take tjbk-fmh-tpccnxh medicines only as told by your doctor. If your child has a sore throat, do notgive your child aspirin. Drink enough fluids to keep your pee (urine) pale yellow. Rest when you feel you need to. To help with pain: Sip warm liquids, such as broth, herbal tea, or warm water. Eat or drink cold or frozen liquids, such as frozen ice pops. Gargle with a salt-water mixture 34 times a day or as needed. To make a salt-water mixture, add ?1 tsp (36 g) of salt to1 cup (237 mL) of warm water. Mix it until you cannot see the salt anymore. Suck on hard candy orthroat lozenges. Put a cool-mist humidifier in your bedroom at night. Sit in the bathroom withthe door closed for 510 minutes while you run hot water in the shower. Do not use any productsthat contain nicotine or tobacco, such as cigarettes, e-cigarettes, and chewing tobacco. If you needhelp quitting, ask your doctor. Wash your hands well and often with soap and water. If soap and water are not available, use hand food science professor.Contact a doctor if: You have a fever for more than 23 days. You keep having symptoms for more than 23 days. Your throat does not get better in 7 days. You have a fever and your symptoms suddenly get worse. Your child who is 3 months to 3 years old has a temperature of 102.2?F (39?C) or higher.Get help right away if: You have trouble breathing. You cannot swallow fluids, soft foods, or your saliva. You have swelling in your throat or neck that gets worse. You keep feeling sick to your stomach (nauseous). You keep throwingup (vomiting).Summary A sore throat is pain, burning, irritation, or scratchiness in the throat. Many things can cause a sore throat. Take filp-flf-evibjxi medicines only as told by your doctor. Do not give your child aspirin. Drink plenty of fluids, and rest as needed. Contact a doctor ifyour symptoms get worse or your sore throat does not get better within 7 days.This information is not intended to replace advice given to you by your health care provider. Make sure you discuss any questions you have with your health care provider.Document Released: 01/12/2009 Document Revised: 09/05/2018 Document Reviewed: 09/05/2018Elsevier Interactive Patient Education ? 2019 iExplore.11/16/2019 13:33:29PeritonitisPeritonitisPeritonitis is inflammation of the tissue that lines the abdomen andcovers the internal organs (peritoneum). Certain conditions or injuries can cause organs to leak stool, bacteria, fungi, blood, or chemicals, such as bile or other digestive fluids, into the abdomen. When these substances come into contact with the peritoneum, they may cause irritation or infection.Peritonitis can be a life-threatening infection if not treated promptly. The infection can spread through the bloodstream and affect the whole body (sepsis).What are the causes?This condition may be caused by: Infection of: The appendix (appendicitis). The pancreas (pancreatitis). Diverticula(diverticulitis). These are small pouches that form in the lining of the digestive tract. The lungs (tuberculosis). Ulcers. Crohn's disease or ulcerative colitis. Cancer. Liver disease.Other possible causes are: Injury, such as injury to: The abdomen. The stomach. The esophagus. Other infections inside the abdomen or pelvis. outside the uterus (tubal ). A procedure that is used to cleanse the blood when the kidneys have stopped working correctly(peritoneal dialysis).What are the signs or symptoms?Symptoms of this condition include: Severe pain in the abdomen. Hard-feeling abdomen. Swelling in the abdomen. Fever and chills. Nausea and vomiting. Poor appetite or no appetite. Being unable to pass gas or stool (constipation). Diarrhea. Passing urine less often.How is this diagnosed?This condition may be diagnosed based on the results of a physical exam and medical history. Your health care provider may also do: A test on fluid removed from the infected area (paracentesis). Lab tests such as blood, urine, or stool tests. Imaging tests, such as X-ray, ultrasound, CT scan.How is this treated?Treatment for this condition includes treating the symptoms and treating the underlying cause. Usually this condition is treated in the hospital. Treatment may include: Antibiotic medicines. Surgery to remove infected fluid and tissue. Surgery to treat the condition that caused peritonitis, such as removing the appendix to treat appendicitis (appendectomy).Follow these instructions at home:Medicines Take ov fq-zya-fjlbaau and prescription medicines only as told by your health care provider. If you were prescribed an antibiotic medicine, take it as told by your health care provider. Do not stop taking the antibiotic even if you start to feel better. If you were taking prescription medicines for other problems before you developed peritonitis, ask your health care provider when you should start taking these medicines again. If told by your health care provider, use a stool softener or laxative.General instructions Do not use any products that contain nicotine or tobacco, such as cigarettes and e-cigarettes. If you need help quitting, ask your health care provider. Do not drink alcohol. Follow your health care provider's instructions for diet and activity. Drink enough fluid to keep your urine pale yellow. Rest as much as possible. Keep all follow-up visits as told by your health care provider. This is important.Contact a health care provider if: You develop a fever or ch ills. You are constipated. You have nausea, vomiting, or diarrhea. Your symptoms change or get worse.Get help right away if you: Have new or worse pain in your abdomen. Have new problemswith passing urine. Develop chest pains or shortness of breath. Become very confused or drowsy. Have jerky movements that you cannot control (seizures).Summary Peritonitis is inflammation of the tissue that lines the abdomen and covers the internal organs (peritoneum). Symptoms include pain and swelling in the abdomen, fever and chills, nausea and vomiting, poor appetite, constipation,diarrhea, or passing urine less often. Treatment includes treating the symptoms that you have and treating the underlying cause with medicine or surgery.This information is not intended to replace advice given to you by your health care provider. Make sure you discuss any questions you have with your health care provider.Document Released: 03/18/2009 Document Revised: 05/10/2018 Document Reviewed: 05/10/2018[employer] Patient Education ? 2019 [employer].Follow Up Care07/ 22:40:32With: Appointment with Dr Gallardo on November 23 at 1:15pmAddress: UnknownWhen: UnknownWith: Appointment at [facility] on Wednesday, Wednesday, Wednesday at 11:20 amAddress: UnknownWhen: UnknownWith: Please make an appointment with your primary care doctor to see her in 1 week.Address: UnknownWhen: UnknownWith: Follow up with publication distributor at dialysis centerAddress: UnknownWhen: UnknownAttachmentsThe following attachments cannot be sent through Care Everywhere.Cardiac Catheterization,discharge instructions ([place])Sedation, Procedural (Adult) ([place])documented in this encounter
== END 2020-02-27 19:20 | disposition left against medical advice (07) ==
LOC: ER 19:09
DX: Z53.21 Procedure and treatment not carried out due to patient leaving prior to being seen by health care provider (principal)

== ENCOUNTER 2020-03-06 09:41 | Emergency (ER) | payer MEDICARE, OTHER, MEDICAID ==
--- NOTE | 2020-03-06 10:09 | EKG REPORT ---
SEVERITY:- ABNORMAL ECG - SINUS RHYTHM CHRIS, CONSIDER BIATRIAL ABNORMALITIES : Confirmed by: Abigail Mandel MD 06-Mar-2020 10:09:03
[2020-03-06 10:28] LABS: ABSOLUTE LYMPHOCYTES (AUTO) 0.4 10^3/uL (0.5-4.7); ABSOLUTE MONOCYTES (AUTO) 0.3 10^3/uL (0.1-1.4); ABSOLUTE NEUT (AUTO) 6.4 10^3/uL (1.7-8.2); BASOPHILS % (AUTO) 0.2 % (0-2); HEMATOCRIT 32.5 % (36.0-47.0); HEMOGLOBIN 10.8 g/dL (12.0-15.5); LYMPHOCYTES % (AUTO) 5.7 % (13-45); MEAN CORPUSCULAR HEMOGLOBIN 31.8 pg (27.0-33.4); MEAN CORPUSCULAR HGB CONC 33.2 g/dL (32.0-36.0); MEAN CORPUSCULAR VOLUME 96 fl (80-97); MONOCYTES % (AUTO) 4.7 % (3-13); PLATELET COUNT 116 10^3/uL (150-450); RED BLOOD COUNT 3.38 10^6/uL (3.72-5.28); RED CELL DISTRIBUTION WIDTH 16.1 % (11.5-14.0); SEGMENTED NEUTROPHILS % (AUTO) 89.4 % (42-78); TOTAL CELLS COUNTED % (AUTO) 100 %; WHITE BLOOD COUNT 7.1 10^3/uL (4.0-10.5)
--- NOTE | 2020-03-06 10:47 | RADIOLOGY REPORT (SQ) ---
EXAM DESCRIPTION: CHEST SINGLE VIEW IMAGES COMPLETED DATE/TIME: 03/06/2020 10:31 am REASON FOR STUDY: chest pain COMPARISON: 03/26/2020 EXAM PARAMETERS: NUMBER OF VIEWS: One view. TECHNIQUE: Single frontal radiographic view of the chest acquired. RADIATION DOSE: NA LIMITATIONS: None. FINDINGS: LUNGS AND PLEURA: Low lung volumes with resultant bronchovascular crowding. No focal cons olidation, pleural effusion, or pneumothorax. MEDIASTINUM AND HILAR STRUCTURES: No masses. Contour normal. HEART AND VASCULAR STRUCTURES: Heart normal in size. Normal vasculature. BONES: No acute findings. HARDWARE: Port-A-Cath terminates in the region of the right atrium. OTHER: No other significant finding. IMPRESSION: NO ACUTE RADIOGRAPHIC FINDING IN THE CHEST. TECHNICAL DOCUMENTATION: JOB ID: [id number] 2010 [employer]- All Rights Reserved Reading location - IP/workstation name: [email or web address]
[2020-03-06 10:51] LABS: ALBUMIN 4.2 g/dL (3.5-5.0); ALKALINE PHOSPHATASE 169 U/L (38-126); ANION GAP 12 (5-19); ASPARTATE AMINO TRANSFERASE 67 U/L (14-36); BILIRUBIN,DIRECT 0.4 mg/dL (0.0-0.4); BILIRUBIN,TOTAL 0.6 mg/dL (0.2-1.3); BLOOD UREA NITROGEN 54 mg/dL (7-20); CALCIUM 7.6 mg/dL (8.4-10.2); CARBON DIOXIDE 28 mmol/L (22-30); CHLORIDE 99 mmol/L (98-107); CREATINE KINASE 106 U/L (30-135); GLUCOSE 184 mg/dL (75-110); POTASSIUM 4.4 mmol/L (3.6-5.0); TOTAL PROTEIN 7.5 g/dL (6.3-8.2)
[2020-03-06 11:03] LABS: CREATINE KINASE MB 1.38 ng/mL (<4.55); TROPONIN I 0.025 ng/mL
[2020-03-06] MEDS ORDERED: ACETAMINOPHEN 325 MG TABLET PO ONE (12:19)
[2020-03-06] MEDS ORDERED: TRAMADOL HCL 50 MG TABLET PO ONE ×2 (12:19→15:25)
[2020-03-06] MEDS ORDERED: PROMETHAZINE HCL 25 MG TABLET PO ONE (13:04)
--- NOTE | 2020-03-06 13:04 | ER Document Report ---
Entered by KOMAL HUMPHREY SCRIBE 03/06/20 1218 Acting as scribe for:EAN SOLIS MD ED General - General Chief Complaint: Chest Tightness Stated Complaint: CHEST PAIN Time Seen by Provider: 03/06/20 12:05 Primary Care Provider: JAYLIN LEROY PA-C [Primary Care Provider] - Follow up as needed Mode of Arrival: Medic Information source: Patient Notes: This 54-year-old female patient with end-stage renal disease on MWF hemodialysis presents to the emergency department today with complaints of chest pain today during dialysis. Patient reports that she has an estranged son that she has not spoken to in over 4 years and she got a call from the [facility]'s Department today informing her that he was "taking her to court". Patient states that when she got this phone call she had approximately 2 hours left of dialysis and she mentions that this phone call "really upset her". She developed a headache, nausea, and chest pain after ending the call. Patient has been in pain management the past but was discharged from the practice in early 2019, she now takes tramadol for her chronic pain. TRAVEL OUTSIDE OF THE [place] IN LAST 30 DAYS: No - Related Data Allergies/Adverse Reactions: codeine [Codeine] Allergy (Mild, Verified 01/13/20 08:21) Itching ketorolac tromethamine [From Toradol] Allergy (Unknown, Verified 01/13/20 08:21) Anxiety nalbuphine HCl [From Nubain] Allergy (Unknown, Verified 01/13/20 08:21) Anxiety ondansetron HCl [From Zofran] Allergy (Unknown, Verified 01/13/20 08:21) Itching droperidol [Droperidol] Allergy (Verified 01/13/20 08:21) reports heart racing, doesn't like how it makes her feel Past Medical History - General Information source: Patient - Social History Smoking Status: Never Smoker Cigarette use (# per day): No Chew tobacco use (# tins/day): No Frequency of alcohol use: None Drug Abuse: None Occupation: unemployed Family History: Reviewed & Not Pertinent, CAD, CVA, Hypertension - Past Medical History Cardiac Medical History: Reports: Hx Heart Attack - w/o stent, Hx Hypercholesterolemia, Hx Hypertension Pulmonary Medical History: Reports: Hx Sleep Apnea Neurological Medical History: Reports: Hx Migraine Endocrine Medical History: Reports: Hx Diabetes Mellitus Type 2 Renal/ Medical History: Reports: Hx End Stage Renal Disease, Hx Hemodialysis - MWF, Hx Renal Insufficiency GI Medical History: Reports: Hx Gastroesophageal Reflux Disease, Hx Irritable Bowel Musculoskeletal Medical History: Reports Hx Arthritis - right knee, Reports Hx Fibromyalgia, Reports Hx Musculoskeletal Deformity, Reports Hx Musculoskeletal Trauma Psychiatric Medical History: Reports: Hx Depression, Hx Post Traumatic Stress Disorder Past Surgical History: Reports: Hx Appendectomy, Hx Cardiac Catheterization - 3, Hx Cholecystectomy, Hx Hysterectomy, Hx Orthopedic Surgery - RIGHT ANKLE SURGERY 01/2011, shoulder surgery 12/2106, Hx Thyroid Surgery, Hx Vascular Surgery - port a cath R upper chest - Immunizations Hx Diphtheria, Pertussis, Tetanus Vaccination: Yes - 06/17/17 Hx Pneumococcal Vaccination: 04/19/17 Review of Systems - Review of Systems Constitutional: No symptoms reported EENT: No symptoms reported Cardiovascular: See HPI, Chest pain Respiratory: No symptoms reported Gastrointestinal: See HPI, Nausea. denies: Vomiting Genitourinary: No symptoms reported Female Genitourinary: No symptoms reported Musculoskeletal: See HPI, Leg swelling, Ankle swelling Skin: No symptoms reported Hematologic/Lymphatic: No symptoms reported Neurological/Psychological: See HPI, Headaches -: Yes All other systems reviewed and negative Physical Exam - Vital signs Vitals: Resp BP Pulse Ox 11 L 157/107 H 100 03/06/20 09:48 03/06/20 09:48 03/06/20 09:48 - Notes Notes: Physical Exam: General: Alert, appears well. HEENT: Normocephalic. Atraumatic. PERRL. Extraocular movements intact. Zakiya pharynx clear. Neck: Supple. Posterior cervical muscles are tender with palpation. Respiratory: No respiratory distress. Clear and equal breath sounds bilaterally. Anterior chest wall tenderness with palpation. Cardiovascular: Regular rate and rhythm. Abdominal: Obese. Non-tender. No distension. Normal Bowel Sounds. Back: No gross abnormalities. Extremities: Moves all four extremities. Upper extremities: RUE fistula Lower extremities: Right femoral perm catheter in place. Neurological: Normal cognition. AAOx4. Normal speech. Psychological: Normal affect. Normal Mood. Skin: Warm. Dry. Normal color. Course - Re-evaluation Re-evalutation: 03/06/20 16:02 The patient is complaining about being hungry. She was given a meal, she states it was just crackers and a sandwich and states a sandwich was frozen. Mccoy came out the fridge rater and it was not frozen. At this time sandwich is soft but she is refusing a sandwich stating it is no good because it had been frozen. She is also in addition and asking for something to eat, wanting IV medication for her nauseousness that she continues to have. Earlier she had complained of her head swirling and wanted a cocktail of some sort. She has also complaining about her chest still hurting, and it is tender to palpate. She states when she had her heart attack her chest wall was tender to palpate. The first troponin was 0.025, 1/2 hours later it was 0.029, 2 hours after that it was 0.032. Due to this slow but insignificant upward trend, a fourth troponin will be collected and if there is not a significant rise then the patient will be discharged home. 03/06/20 17:46 6 hours after the first troponin it is now 0.034 I did discuss the case with Dr. Marshall who feels this is all due to her being a dialysis patient considering she has a normal EKG, and has reproducible chest wall pain and had been dialyzed just prior to coming in and having her initial blood drawn. - Vital Signs Vital signs: Temp Pulse Resp BP Pulse Ox 98.3 F 100 19 106/68 100 03/06/20 09:50 03/06/20 09:50 03/06/20 17:01 03/06/20 17:01 03/06/20 14:01 - Laboratory Result Diagrams: 03/06/20 10:04 03/06/20 10:04 Laboratory results interpreted by me: 03/06/20 03/06/20 10:04 10:04 RBC 3.38 L Hgb 10.8 L Hct 32.5 L RDW 16.1 H Plt Count 116 L Lymph % (Auto) 5.7 L Absolute Lymphs (auto) 0.4 L Seg Neutrophils % 89.4 H BUN 54 H Creatinine 3.95 H Est GFR ( Amer) 14 L Est GFR (MDRD) Non-Af 12 L Glucose 184 H Calcium 7.6 L AST 67 H ALT 75 H Alkaline Phosphatase 169 H - Diagnostic Test Radiology reviewed: Image reviewed, Reports reviewed - Chest x-ray does not show acute radiographic findings. - EKG Interpretation by Me EKG shows normal: Sinus rhythm, [place], Intervals, QRS Complexes, ST-T Waves Rate: Normal - 99 Rhythm: NSR P Waves: LAE When compared to previous EKG there are: No significant change Discharge - Discharge Clinical Impression: Chest wall pain, Nausea Chronic renal failure Qualifiers: Chronic kidney disease stage: stage 5 Qualified Code(s): N18.5 - Chronic kidney disease, stage 5 Headache Qualifiers: Headache type: unspecified Headache chronicity pattern: chronic headache Intractability: not intractable Qualified Code(s): R51.9 - Headache, unspecified Condition: Stable Disposition: HOME, SELF-CARE Additional Instructions: Chest Wall Pain: Your chest pain has been diagnosed as coming from the chest wall. This is often caused by straining the muscles or joints in the chest during physical activity, direct trauma, coughing, or vigorous vomiting. Persons with arthritis are especially prone to this type of pain, due to inflammation of the cartilage joints near the breast bone. Occasionally, no cause can be found. Rest from strenuous physical activity. This kind of chest pain is usually made worse by movement of the chest. Depending on the symptoms, we may prescribe medicine for pain, muscle relaxation, and antiinflammatory effects. If the pain is new, and seems to be due to muscle strain, cold packs can help. Otherwise, apply gentle warmth to the painful area for 15 minutes every hour or two. You should contact the doctor immediately if things change. Further evaluation is needed if you develop a fever or cough, if the nature of the pain changes, or if you become short of breath. Your EKG, physical examination, and laboratory serial cardiac enzymes suggest that your discomfort today is coming from your anterior chest wall and not cardiac related. You should continue your regular medications. Be sure you do not miss your scheduled dialysis on . Follow-up with your executive marketing assistant or your primary care provider if you continue having the chest wall pain. RETURN TO THE EMERGENCY ROOM IF ANY NEW OR WORSENING SYMPTOMS. Referrals: JAYLIN LEROY PA-C [Primary Care Provider] - Follow up as needed I personally performed the services described in the documentation, reviewed and edited the documentation which was dictated to the scribe in my presence, and it accurately records my words and actions.
[2020-03-06] MEDS ORDERED: DIPHENHYDRAMINE HCL 50 MG/ML VIAL IV ONE (16:01)
[2020-03-06] MEDS ORDERED: PROCHLORPERAZINE EDISYLATE INJ 10 MG/2 ML VIAL IV ONE (16:01)
[2020-03-06 17:50] VITALS: BP 106/68
== END 2020-03-06 18:09 | disposition home or self-care (01) ==
LOC: ER 09:41
DX: R07.89 Other chest pain (principal); R51.9 Headache, unspecified; R11.0 Nausea; Z63.79 Other stressful life events affecting family and household; I12.0 Hypertensive chronic kidney disease with stage 5 chronic kidney disease or end stage renal disease; E11.22 Type 2 diabetes mellitus with diabetic chronic kidney disease; Z99.2 Dependence on renal dialysis; N18.5 Chronic kidney disease, stage 5; I25.2 Old myocardial infarction; G89.29 Other chronic pain; Z79.899 Other long term (current) drug therapy; Z88.6 Allergy status to analgesic agent; Z88.5 Allergy status to narcotic agent; Z88.8 Allergy status to other drugs, medicaments and biological substances
CPT/HCPCS: 93005; 99285; 96374; 36415; 82553; 82550; 85025; 80053; 84484; 71045; 93010; A9270 ×3; J1200; J0780

== ENCOUNTER 2020-03-15 18:12 | Emergency (ER) | payer MEDICARE, OTHER, MEDICAID ==
--- NOTE | 2020-03-15 19:45 | ER Document Report ---
ED Medical Screen (RME) - General Chief Complaint: Passed Out Prior to Arrival Stated Complaint: SYNCOPAL EPISODE,WEAKNESS Time Seen by Provider: 03/15/20 19:34 Primary Care Provider: JAYLIN LEROY PA-C [Primary Care Provider] - Follow up as needed Mode of Arrival: Wheelchair Information source: Patient Notes: Patient is a 54-year-old female comes emergency room stating that she passed out this this morning at dialysis. She states that it does sternal rub to wake her up. She came to went home she passed out a second time. Patient states that over the past week dialysis as taking off approximately 5 L each time she is gone. She states she had gained 30 pounds of fluid weight so they took off quite a bit in the past week. She goes to dialysis Wednesdays and Fridays. She states that last week her potassium was 8.0. She does not know what it was today. Patient also states that she has a headache that will not quit. She has a history of migraines and states this is a different presentation than her migraines. She did receive Botox injections into her head 1 week ago from her specialist that is handling her migraine headaches. Again she states this is different than her migraine headaches in the past. She does complain of some photophobia. Some nausea as well. But no vomiting. Patient states that she still does urinate and she has a history of oral dependent diabetes. She also states that lately she gets very dizzy and lightheaded when she goes from laying to sitting and sitting to standing as well as when she leans forward she gets exceptionally lightheaded. She states this is never happened to her before. Physical examination: Patient is a well-nourished well-developed morbidly obese 54-year-old female who is in no apparent distress but does appear ill and appears somewhat scared about the situation of passing out. Cardiac patient's heart rate on monitor was 100 bpm on the monitor no murmurs auscultated. Lungs: Auscultation patient's lungs show she has bilateral breath sounds they are moderately decreased throughout question secondary to body habitus Neuro: A quick neuro exam wheelchair shows patient having a score is 0. She has good upper and lower body strength. EOMs are totally intact. I have greeted and performed a rapid initial assessment of this patient. A comprehensive ED assessment and evaluation of the patient, analysis of test results and completion of the medical decision making process will be conducted by additional ED providers. Dictation of this chart was performed using voice recognition software; therefore, there may be some unintended grammatical errors. TRAVEL OUTSIDE OF THE [place] IN LAST 30 DAYS: No - Related Data Allergies/Adverse Reactions: codeine [Codeine] Allergy (Mild, Verified 01/13/20 08:21) Itching ketorolac tromethamine [From Toradol] Allergy (Unknown, Verified 01/13/20 08:21) Anxiety nalbuphine HCl [From Nubain] Allergy (Unknown, Verified 01/13/20 08:21) Anxiety ondansetron HCl [From Zofran] Allergy (Unknown, Verified 01/13/20 08:21) Itching droperidol [Droperidol] Allergy (Verified 01/13/20 08:21) reports heart racing, doesn't like how it makes her feel Past Medical History - Past Medical History Cardiac Medical History: Reports: Hx Heart Attack - w/o stent, Hx Hypercholesterolemia, Hx Hypertension Denies: Hx Coronary Artery Disease Pulmonary Medical History: Reports: Hx Sleep Apnea Denies: Hx Asthma, Hx Bronchitis, Hx COPD, Hx Pneumonia Neurological Medical History: Reports: Hx Migraine. Denies: Hx Cerebrovascular Accident, Hx Seizures Endocrine Medical History: Reports: Hx Diabetes Mellitus Type 2 Renal/ Medical History: Reports: Hx End Stage Renal Disease, Hx Hemodialysis - MWF, Hx Renal Insufficiency. Denies: Hx Peritoneal Dialysis GI Medical History: Reports: Hx Gastroesophageal Reflux Disease, Hx Irritable Bowel Musculoskeltal Medical History: Reports Hx Arthritis - right knee, Reports Hx Fibromyalgia, Reports Hx Musculoskeletal Deformity, Reports Hx Musculoskeletal Trauma Skin Medical History: Denies Hx Eczema, Denies Hx Psoriasis Psychiatric Medical History: Reports: Hx Depression, Hx Post Traumatic Stress Disorder Past Surgical History: Reports: Hx Appendectomy, Hx Cardiac Catheterization - 3, Hx Cholecystectomy, Hx Hysterectomy, Hx Orthopedic Surgery - RIGHT ANKLE SURGERY 01/2011, shoulder surgery 12/2106, Hx Thyroid Surgery, Hx Vascular Surgery - port a cath R upper chest. Denies: Hx Pacemaker - Immunizations Hx Diphtheria, Pertussis, Tetanus Vaccination: Yes - 06/17/17 Physical Exam - Vital signs Vitals: Temp Pulse Resp BP Pulse Ox 98.8 F 111 H 20 123/70 100 03/15/20 18:19 03/15/20 18:19 03/15/20 18:19 03/15/20 18:19 03/15/20 18:19 Course - Vital Signs Vital signs: Temp Pulse Resp BP Pulse Ox 98.8 F 111 H 20 123/70 100 03/15/20 18:19 03/15/20 18:19 03/15/20 18:19 03/15/20 18:19 03/15/20 18:19 Doctor's Discharge - Discharge Referrals: JAYLIN LEROY PA-C [Primary Care Provider] - Follow up as needed
--- NOTE | 2020-03-15 20:33 | RADIOLOGY REPORT (SQ) ---
EXAM DESCRIPTION: CHEST SINGLE VIEW CLINICAL HISTORY: 54 years Female, sob COMPARISON: Single view of the chest March 06, 2020 FINDINGS: Lungs: Lung volumes remain low. No focal consolidation. No pneumothorax or pleural effusion. Mediastinum: Cardiac and mediastinal silhouette are unchanged. There is a right chest port in place with the tip of the catheter in the mid right atrium. There appears to be another catheter entering the right heart from the inferior vena cava. This is in the mid right atrium as well. Bones: Postsurgical change in the left shoulder. IMPRESSION: Low lung volumes. No acute process. No significant interval change.
--- NOTE | 2020-03-15 21:06 | RADIOLOGY REPORT (SQ) ---
EXAM DESCRIPTION: CT HEAD WITHOUT CLINICAL HISTORY: 54 years Female DUKES/new presentation TECHNIQUE: Noncontrast CT head. All CT scans at this facility use dose modulation, iterative reconstruction, and/or weight based dosing when appropriate to reduce radiation dose to as low as reasonably achievable. COMPARISON: February 12, 2020 FINDINGS: Phillips matter, white matter, ventricles, and cisterns are within normal limits. No acute hemorrhage or mass effect. Visualized portions of paranasal sinuses and mastoids are clear. Visualized portions of the calvarium are within normal limits. IMPRESSION: 1. No acute intracranial findings.
[2020-03-15 22:23] LABS: APPEARANCE,URINE CLOUDY; BILIRUBIN,URINE NEGATIVE (NEGATIVE); COLOR,URINE YELLOW; GLUCOSE, URINE NEGATIVE (NEGATIVE); KETONES,URINE NEGATIVE (NEGATIVE); LEUKOCYTE ESTERASE,URINE MODERATE (NEGATIVE); NITRITE,URINE NEGATIVE (NEGATIVE); PROTEIN,URINE 100 mg/dL (NEGATIVE); URINE SPECIFIC GRAVITY 1.017; UROBILINOGEN,URINE NEGATIVE mg/dL (<2.0)
--- NOTE | 2020-03-15 22:46 | ER Document Report ---
ED General - General Chief Complaint: Passed Out Prior to Arrival Stated Complaint: SYNCOPAL EPISODE,WEAKNESS Time Seen by Provider: 03/15/20 19:34 Primary Care Provider: JAYLIN LEROY PA-C [Primary Care Provider] - Follow up as needed Mode of Arrival: Wheelchair Notes: Patient is a 54-year-old female who comes emergency department for chief complaint of passing out, generalized body pain, headache, nausea, dizziness. Patient states that her this morning at home told her that she had passed out briefly, she states that after she went home from dialysis she was talking on the phone with her friend and she states her friend told her she suddenly stopped responding, called EMS, and she states EMS told her blood pressure was low. Patient states that she did not have any fall injury. Patient states that she has constant nausea, frequent lightheadedness and dizziness. Patient states that "they are taking too much fluid off of me at dialysis". She states that she went every day last week. Patient states that she had this problem in the past with hemodialysis and had been switched to peritoneal dialysis, however she states there was a problem with the tube, peritonitis, and she was removed from peritoneal dialysis briefly, she is supposed be going back to this because she does not tolerate hemodialysis well and frequently passes out. She denies chest pain, shortness of breath, fever, vomiting. Patient states that she has headaches every day, she states that she saw her specialist and received Botox injections 1 week ago but this is not particularly helped. She states she used to be on pain management but they took her off of this. TRAVEL OUTSIDE OF THE [place] IN LAST 30 DAYS: No - Related Data Allergies/Adverse Reactions: codeine [Codeine] Allergy (Mild, Verified 01/13/20 08:21) Itching ketorolac tromethamine [From Toradol] Allergy (Unknown, Verified 01/13/20 08:21) Anxiety nalbuphine HCl [From Nubain] Allergy (Unknown, Verified 01/13/20 08:21) Anxiety ondansetron HCl [From Zofran] Allergy (Unknown, Verified 01/13/20 08:21) Itching droperidol [Droperidol] Allergy (Verified 01/13/20 08:21) reports heart racing, doesn't like how it makes her feel Past Medical History - General Information source: Patient - Social History Smoking Status: Never Smoker Frequency of alcohol use: None Drug Abuse: None Lives with: Family Family History: Reviewed & Not Pertinent, CAD, CVA, Hypertension - Past Medical History Cardiac Medical History: Reports: Hx Heart Attack - w/o stent, Hx Hypercholesterolemia, Hx Hypertension Denies: Hx Coronary Artery Disease Pulmonary Medical History: Reports: Hx Sleep Apnea Denies: Hx Asthma, Hx Bronchitis, Hx COPD, Hx Pneumonia Neurological Medical History: Reports: Hx Migraine. Denies: Hx Cerebrovascular Accident, Hx Seizures Endocrine Medical History: Reports: Hx Diabetes Mellitus Type 2 Renal/ Medical History: Reports: Hx End Stage Renal Disease, Hx Hemodialysis - MWF, Hx Renal Insufficiency. Denies: Hx Peritoneal Dialysis GI Medical History: Reports: Hx Gastroesophageal Reflux Disease, Hx Irritable Bowel Musculoskeletal Medical History: Reports Hx Arthritis - right knee, Reports Hx Fibromyalgia, Reports Hx Musculoskeletal Deformity, Reports Hx Musculoskeletal Trauma Skin Medical History: Denies Hx Eczema, Denies Hx Psoriasis Psychiatric Medical History: Reports: Hx Depression, Hx Post Traumatic Stress Disorder Past Surgical History: Reports: Hx Appendectomy, Hx Cardiac Catheterization - 3, Hx Cholecystectomy, Hx Hysterectomy, Hx Orthopedic Surgery - RIGHT ANKLE SURGERY 01/2011, shoulder surgery 12/2106, Hx Thyroid Surgery, Hx Vascular Surgery - port a cath R upper chest. Denies: Hx Pacemaker - Immunizations Hx Diphtheria, Pertussis, Tetanus Vaccination: Yes - 06/17/17 Hx Pneumococcal Vaccination: 04/19/17 Review of Systems - Review of Systems Constitutional: See HPI EENT: No symptoms reported Cardiovascular: See HPI Respiratory: No symptoms reported Gastrointestinal: See HPI Genitourinary: No symptoms reported Female Genitourinary: No symptoms reported Musculoskeletal: No symptoms reported Skin: No symptoms reported Hematologic/Lymphatic: No symptoms reported Neurological/Psychological: See HPI Physical Exam - Vital signs Vitals: Temp Pulse Resp BP Pulse Ox 98.8 F 111 H 20 123/70 100 03/15/20 18:19 03/15/20 18:19 03/15/20 18:19 03/15/20 18:19 03/15/20 18:19 - Notes Notes: GENERAL: Alert, interacts well. No acute distress. HEAD: Normocephalic, atraumatic. EYES: Pupils equal, round, and reactive to light. Extraocular movements intact. ENT: Oral mucosa moist, tongue midline. Oropharynx unremarkable. Airway patent. NECK: Full range of motion. Supple. Trachea midline. No lymphadenopathy. LUNGS: Clear to auscultation bilaterally, no wheezes, rales, or rhonchi. No respiratory distress. Non-tender chest wall. Port present in the right side of the chest. HEART: Regular rate and rhythm. No murmur ABDOMEN: Soft, non-tender. Non-distended. EXTREMITIES: Moves all 4 extremities spontaneously. No edema, normal radial and dorsalis pedis pulses bilaterally. No cyanosis. AV fistula present in the right femoral area/thigh. BACK: no cervical, thoracic, lumbar midline tenderness. No saddle anesthesia, normal distal neurovascular exam. Moves all extremities in full range of motion. NEUROLOGICAL: Alert and oriented x3. Normal speech. Cranial nerves II through XII grossly intact. Strength 5/5 in all extremities. PSYCH: Normal affect, normal mood. SKIN: Warm, dry, normal turgor. No rashes or lesions noted. Course - Re-evaluation Re-evalutation: On my exam patient is alert and well-appearing although she is complaining of a headache. Unremarkable neck exam, no nuchal rigidity, no fever, normal neurological exam, no signs of distress. Patient is not tachycardic on my exam, blood pressure is unremarkable on my evaluation as well. CBC unremarkable, chemistry shows chronic kidney disease, hypocalcemia at 6.5, magnesium checked and unremarkable. Troponin indeterminate, recycled and downtrending while still indeterminate. BNP from triage nonspecific given dialysis status. Urinalysis is contaminated and therefore nonspecific, patient has no urinary symptoms, this was cultured. CAT scan of the head reviewed and unremarkable, chest x-ray unremarkable. EKG without significant change from prior. On evaluation patient states her headache is somewhat improved but she is requesting more medication, she states Haldol and Phenergan worked very well for this and she was provided with this. Patient is very familiar with this headache and states it is similar to prior. Patient reevaluated, aroused, while sleeping she became mildly hypotensive, however we did perform orthostatics and these were normal without tachycardia or hypotension. Patient denies any current symptoms, symptoms had resolved. I did discuss the patient with Dr. Gomez, discussed patient's history, presentation, work-up. He does not recommend giving calcium at this time. Reported syncopal episodes are not new, patient had no chest pain with them, she has unremarkable orthostatics, her work-up is nonspecific. Recommendation is discharged with close follow-up with nephrology for additional management, follow-up with the provider managing her headaches, and return precautions. These were discussed in detail. Patient states appreciation and agreement. Stable and well-appearing at time of discharge. Note: unfortunately blood pressure was not recorded again/rechecked after we got her up from sleeping - Vital Signs Vital signs: Temp Pulse Resp BP Pulse Ox 99.0 F 86 14 95/62 L 90 L 03/15/20 21:45 03/16/20 00:04 03/16/20 03:01 03/16/20 03:01 03/16/20 03:01 - Laboratory Result Diagrams: 03/15/20 22:29 03/15/20 22:29 Laboratory results interpreted by me: 03/15/20 03/15/20 03/15/20 22:09 22:29 22:29 RBC 3.49 L Hgb 10.8 L Hct 34.1 L MCV 98 H MCHC 31.7 L RDW 15.7 H [place] % (Auto) 14.0 H BUN 57 H Creatinine 4.96 H Est GFR ( Amer) 11 L Est GFR (MDRD) Non-Af 9 L Glucose 129 H Calcium 6.5 L* Alkaline Phosphatase 134 H NT-Pro-B Natriuret Pep Urine Protein 100 H Ur Leukocyte Esterase MODERATE H 03/15/20 22:29 RBC Hgb Hct MCV MCHC RDW [place] % (Auto) BUN Creatinine Est GFR ( Amer) Est GFR (MDRD) Non-Af Glucose Calcium Alkaline Phosphatase NT-Pro-B Natriuret Pep 631 H Urine Protein Ur Leukocyte Esterase - EKG Interpretation by Me Additional EKG results interpreted by me: EKG shows sinus rhythm at a rate of 99, QTc of 452, left axis deviation, NV interval of 144. Borderline ST elevation in V2 with J-point appearance, no T wave inversions or ST segment changes in consecutive leads. No noted signific ant change from prior Discharge - Discharge Clinical Impression: Hypocalcemia Headache Qualifiers: Headache type: unspecified Headache chronicity pattern: acute headache Intractability: not intractable Qualified Code(s): R51.9 - Headache, unspecified Episode of syncope Qualifiers: Syncope type: unspecified Qualified Code(s): R55 - Syncope and collapse Condition: Stable Disposition: HOME, SELF-CARE Additional Instructions: The exact cause of your passing out episodes is not certain at this time. Your overall work-up is reassuring, CAT scan of your head is normal. Please discuss your episodes and your low calcium level with your candy spreader, follow-up on Wednesday to have this rechecked and for additional management. Also follow-up with your provider in regards to your headaches. Return if you worsen including chest pain, fever, vomiting, difficulty breathing, returned/severe headache, or any other concerning or worsening symptoms. Referrals: JAYLIN LEROY PA-C [Primary Care Provider] - Follow up as needed
[2020-03-15] MEDS ORDERED: METOCLOPRAMIDE HCL INJ/PF 10 MG/2 ML SDV IV ONE (22:47)
[2020-03-15] MEDS ORDERED: DIPHENHYDRAMINE HCL 50 MG/ML VIAL IV ONE (22:47)
[2020-03-15 22:52] LABS: ABSOLUTE EOSINOPHILS # (AUTO) 0.1 10^3/uL (0.0-0.6); ABSOLUTE LYMPHOCYTES (AUTO) 1.5 10^3/uL (0.5-4.7); ABSOLUTE MONOCYTES (AUTO) 0.7 10^3/uL (0.1-1.4); ABSOLUTE NEUT (AUTO) 2.7 10^3/uL (1.7-8.2); BASOPHILS % (AUTO) 0.4 % (0-2); EOSINOPHILS % (AUTO) 1.5 % (0-6); HEMATOCRIT 34.1 % (36.0-47.0); HEMOGLOBIN 10.8 g/dL (12.0-15.5); LYMPHOCYTES % (AUTO) 29.8 % (13-45); MEAN CORPUSCULAR HGB CONC 31.7 g/dL (32.0-36.0); MEAN CORPUSCULAR VOLUME 98 fl (80-97); PLATELET COUNT 158 10^3/uL (150-450); RED BLOOD COUNT 3.49 10^6/uL (3.72-5.28); RED CELL DISTRIBUTION WIDTH 15.7 % (11.5-14.0); SEGMENTED NEUTROPHILS % (AUTO) 54.3 % (42-78); TOTAL CELLS COUNTED % (AUTO) 100 %
[2020-03-15 23:01] LABS: ALBUMIN 3.7 g/dL (3.5-5.0); ALKALINE PHOSPHATASE 134 U/L (38-126); ANION GAP 9 (5-19); ASPARTATE AMINO TRANSFERASE 21 U/L (14-36); BILIRUBIN,DIRECT 0.4 mg/dL (0.0-0.4); BILIRUBIN,TOTAL 0.5 mg/dL (0.2-1.3); BLOOD UREA NITROGEN 57 mg/dL (7-20); CARBON DIOXIDE 26 mmol/L (22-30); CHLORIDE 103 mmol/L (98-107); GLUCOSE 129 mg/dL (75-110); POTASSIUM 4.2 mmol/L (3.6-5.0); TOTAL PROTEIN 6.7 g/dL (6.3-8.2)
[2020-03-15 23:09] LABS: CALCIUM 6.5 mg/dL (8.4-10.2)
[2020-03-15 23:10] LABS: TROPONIN I 0.029 ng/mL
[2020-03-15] MEDS ORDERED: HALOPERIDOL LACTATE INJ 5 MG/1 ML VIAL IM ONE (23:56)
[2020-03-16] MEDS ORDERED: PROMETHAZINE HCL INJ 25 MG/1 ML VIAL IM ONE (00:07)
[2020-03-16 03:23] VITALS: BP 95/62
--- NOTE | 2020-03-16 11:45 | EKG REPORT ---
SEVERITY:- ABNORMAL ECG - SINUS RHYTHM LEFT VENTRICULAR HYPERTROPHY ST ELEV, PROBABLE NORMAL EARLY REPOL PATTERN : Confirmed by: Eliseo Locke MD 16-Mar-2020 11:44:53
== END 2020-03-16 03:33 | disposition home or self-care (01) ==
LOC: ER 18:12
DX: E83.51 Hypocalcemia (principal); R55 Syncope and collapse; R51.9 Headache, unspecified; I12.0 Hypertensive chronic kidney disease with stage 5 chronic kidney disease or end stage renal disease; E11.22 Type 2 diabetes mellitus with diabetic chronic kidney disease; N18.6 End stage renal disease; Z99.2 Dependence on renal dialysis; M79.10 Myalgia, unspecified site; R11.0 Nausea; R42 Dizziness and giddiness; Z88.8 Allergy status to other drugs, medicaments and biological substances
CPT/HCPCS: 93005; 99285; 96372; 96374; 96375; 36415; 87086; 83735; 85025; 87088; 80053; 81001; 84484; 87186; 83880; 71045; 70450; 93010; J1200; J1630; J2765; J2550; J1642

== ENCOUNTER 2020-03-19 10:05 | Emergency (ER) | payer MEDICARE, OTHER, MEDICAID ==
--- NOTE | 2020-03-19 10:52 | ER Document Report ---
ED Medical Screen (RME) - General Chief Complaint: Chest Pain Stated Complaint: CHEST PAIN Time Seen by Provider: 03/19/20 10:43 Primary Care Provider: JAYLIN LEROY PA-C [Primary Care Provider] - Follow up as needed TRAVEL OUTSIDE OF THE [place] IN LAST 30 DAYS: No - HPI Notes: 03/19/20 10:49 54-year-old female who is a dialysis, migraines a history of an [place] x3 years ago presents to the emergency room for chest pain that started last night around 11 and lasted for approximately 30 minutes, states she felt like something heavy was sitting on her chest and the pain radiated down to her left arm. Today she was at dialysis (an extra day), she started having chest pain around 9:00am and is still present, she did receive nitro and 324 baby aspirin in the ambulance. She does report she has shortness of breath, nausea and a headache. Patient reports she does get Botox for her migraines and recently had it 2 weeks ago. Denies worst headache of her life. Reports that she did get a cardiac catheterization done this year because she is on the list to get a kidney transplant but has not received one yet. Patient does follow with Dr. Castorena, local vp patient. Denies any fevers or chills. I have greeted and performed a rapid initial assessment of this patient. A comprehensive ED assessment and evaluation of the patient, analysis of test results and completion of the medical decision making process will be conducted by additional ED providers. PHYSICAL EXAMINATION: GENERAL: Well-appearing, well-nourished and in no acute distress. NECK: Normal range of motion CV: s1, s2 regular LUNGS: No respiratory distress M - Related Data Allergies/Adverse Reactions: codeine [Codeine] Allergy (Mild, Verified 03/19/20 10:08) Itching ketorolac tromethamine [From Toradol] Allergy (Unknown, Verified 03/19/20 10:08) Anxiety nalbuphine HCl [From Nubain] Allergy (Unknown, Verified 03/19/20 10:08) Anxiety ondansetron HCl [From Zofran] Allergy (Unknown, Verified 03/19/20 10:08) Itching droperidol [Droperidol] Allergy (Verified 03/19/20 10:08) reports heart racing, doesn't like how it makes her feel Past Medical History - Past Medical History Cardiac Medical History: Reports: Hx Heart Attack - w/o stent, Hx Hypercholesterolemia, Hx Hypertension Denies: Hx Coronary Artery Disease Pulmonary Medical History: Reports: Hx Sleep Apnea Denies: Hx Asthma, Hx Bronchitis, Hx COPD, Hx Pneumonia Neurological Medical History: Reports: Hx Migraine. Denies: Hx Cerebrovascular Accident, Hx Seizures Endocrine Medical History: Reports: Hx Diabetes Mellitus Type 2 Renal/ Medical History: Reports: Hx End Stage Renal Disease, Hx Hemodialysis - MWF, Hx Renal Insufficiency. Denies: Hx Peritoneal Dialysis GI Medical History: Reports: Hx Gastroesophageal Reflux Disease, Hx Irritable Bowel Musculoskeltal Medical History: Reports Hx Arthritis - right knee, Reports Hx Fibromyalgia, Reports Hx Musculoskeletal Deformity, Reports Hx Musculoskeletal Trauma Skin Medical History: Denies Hx Eczema, Denies Hx Psoriasis Psychiatric Medical History: Reports: Hx Depression, Hx Post Traumatic Stress Disorder Past Surgical History: Reports: Hx Appendectomy, Hx Cardiac Catheterization - 3, Hx Cholecystectomy, Hx Hysterectomy, Hx Orthopedic Surgery - RIGHT ANKLE SURGERY 01/2011, shoulder surgery 12/2106, Hx Thyroid Surgery, Hx Vascular Surgery - port a cath R upper chest. Denies: Hx Pacemaker - Immunizations Hx Diphtheria, Pertussis, Tetanus Vaccination: Yes - 06/17/17 Physical Exam - Vital signs Vitals: Pulse Ox 98 03/19/20 10:26 Course - Vital Signs Vital signs: Temp Pulse Resp BP Pulse Ox 98 03/19/20 10:26 Doctor's Discharge - Discharge Referrals: JAYLIN LEROY PA-C [Primary Care Provider] - Follow up as needed
[2020-03-19] MEDS ORDERED: PROCHLORPERAZINE EDISYLATE INJ 10 MG/2 ML VIAL IV ONE (10:53)
[2020-03-19] MEDS ORDERED: NORMAL SALINE 500 ML IV ONE (10:53)
[2020-03-19] MEDS ORDERED: DIPHENHYDRAMINE HCL 50 MG/ML VIAL IV ONE (10:53)
--- NOTE | 2020-03-19 11:20 | RADIOLOGY REPORT (SQ) ---
EXAM DESCRIPTION: CHEST SINGLE VIEW IMAGES COMPLETED DATE/TIME: 03/19/2020 10:51 am REASON FOR STUDY: bed 21 chest pain COMPARISON: 03/15/2020 EXAM PARAMETERS: NUMBER OF VIEWS: One view. TECHNIQUE: Single frontal radiographic view of the chest acquired. RADIATION DOSE: NA LIMITATIONS: None. FINDINGS: LUNGS AND PLEURA: No opacities, masses or pneumothorax. No pleural effusion. MEDIASTINUM AND HILAR STRUCTURES: No masses. Contour normal. HEART AND VASCULAR STRUCTURES: Heart normal in size. Normal vasculature. BONES: No acute findings. HARDWARE: Right-sided port. OTHER: No other significant finding. IMPRESSION: NO ACUTE RADIOGRAPHIC FINDING IN THE CHEST. TECHNICAL DOCUMENTATION: JOB ID: [id number] [employer]- All Rights Reserved Reading location - IP/workstation name: [email or web address]
[2020-03-19 11:57] LABS: ABSOLUTE LYMPHOCYTES (AUTO) 0.7 10^3/uL (0.5-4.7); ABSOLUTE MONOCYTES (AUTO) 0.3 10^3/uL (0.1-1.4); ABSOLUTE NEUT (AUTO) 4.7 10^3/uL (1.7-8.2); BASOPHILS % (AUTO) 0.3 % (0-2); EOSINOPHILS % (AUTO) 0.1 % (0-6); HEMATOCRIT 35.4 % (36.0-47.0); HEMOGLOBIN 11.7 g/dL (12.0-15.5); LYMPHOCYTES % (AUTO) 12.6 % (13-45); MEAN CORPUSCULAR HEMOGLOBIN 31.2 pg (27.0-33.4); MEAN CORPUSCULAR HGB CONC 32.9 g/dL (32.0-36.0); MEAN CORPUSCULAR VOLUME 95 fl (80-97); PLATELET COUNT 131 10^3/uL (150-450); RED BLOOD COUNT 3.74 10^6/uL (3.72-5.28); RED CELL DISTRIBUTION WIDTH 15.1 % (11.5-14.0); TOTAL CELLS COUNTED % (AUTO) 100 %; WHITE BLOOD COUNT 5.7 10^3/uL (4.0-10.5)
[2020-03-19 12:25] LABS: ALKALINE PHOSPHATASE 189 U/L (38-126); ANION GAP 10 (5-19); ASPARTATE AMINO TRANSFERASE 25 U/L (14-36); BILIRUBIN,DIRECT 0.6 mg/dL (0.0-0.4); BILIRUBIN,TOTAL 0.8 mg/dL (0.2-1.3); BLOOD UREA NITROGEN 60 mg/dL (7-20); CALCIUM 8.4 mg/dL (8.4-10.2); CARBON DIOXIDE 26 mmol/L (22-30); CHLORIDE 102 mmol/L (98-107); CREATINE KINASE 155 U/L (30-135); GLUCOSE 188 mg/dL (75-110); POTASSIUM 5.4 mmol/L (3.6-5.0); TOTAL PROTEIN 8.4 g/dL (6.3-8.2)
[2020-03-19 12:28] LABS: ALBUMIN 4.7 g/dL (3.5-5.0)
[2020-03-19 12:34] LABS: CREATINE KINASE MB 1.01 ng/mL (<4.55); NT PRO BNP 766 pg/mL (<125)
[2020-03-19 12:38] LABS: TROPONIN I < 0.012 ng/mL
[2020-03-19 13:20] LABS: APPEARANCE,URINE CLOUDY; BILIRUBIN,URINE NEGATIVE (NEGATIVE); COLOR,URINE YELLOW; GLUCOSE, URINE NEGATIVE (NEGATIVE); KETONES,URINE NEGATIVE (NEGATIVE); PROTEIN,URINE 100 mg/dL (NEGATIVE); URINE SPECIFIC GRAVITY 1.017; UROBILINOGEN,URINE NEGATIVE mg/dL (<2.0)
--- NOTE | 2020-03-19 13:28 | EKG REPORT ---
SEVERITY:- ABNORMAL ECG - SINUS RHYTHM LEFT ATRIAL ABNORMALITY PROBABLE LEFT VENTRICULAR HYPERTROPHY ST ELEV, PROBABLE NORMAL EARLY REPOL PATTERN : Confirmed by: Moreno Leonard MD 19-Mar-2020 13:27:59
--- NOTE | 2020-03-19 15:33 | ER Document Report ---
ED Cardiac - General Chief Complaint: Chest Pain Stated Complaint: CHEST PAIN Time Seen by Provider: 03/19/20 10:43 Primary Care Provider: JAYLIN LEROY PA-C [Primary Care Provider] - Follow up as needed Mode of Arrival: Ambulatory Information source: Patient TRAVEL OUTSIDE OF THE [place] IN LAST 30 DAYS: No - HPI Notes: Patient presents with weakness and chest pain. Patient states she was at dialysis today having some "excess fluid" being removed. She states that her normal dialysis days are Wednesday and Wednesday. Patient states while having that she began to have some chest pain and felt weak so she was brought to the emergency department. She states that upon arrival here the chest pain is present but somewhat better. She has had some mild shortness of breath. No fevers chills or sweats. No significant coughing. She states she has had a heart attack before about 5 years ago but did not receive any stents or other interventions. She states she did have a heart catheterization in August of this year that was normal. She states she has mild nausea but no vomiting or diarrhea. - Related Data Allergies/Adverse Reactions: codeine [Codeine] Allergy (Mild, Verified 03/19/20 10:08) Itching ketorolac tromethamine [From Toradol] Allergy (Unknown, Verified 03/19/20 10:08) Anxiety nalbuphine HCl [From Nubain] Allergy (Unknown, Verified 03/19/20 10:08) Anxiety ondansetron HCl [From Zofran] Allergy (Unknown, Verified 03/19/20 10:08) Itching droperidol [Droperidol] Allergy (Verified 03/19/20 10:08) reports heart racing, doesn't like how it makes her feel Past Medical History - General Information source: Patient - Social History Smoking Status: Never Smoker Frequency of alcohol use: None Drug Abuse: None Family History: Reviewed & Not Pertinent, CAD, CVA, Hypertension Patient has homicidal ideation: No - Past Medical History Cardiac Medical History: Reports: Hx Heart Attack - w/o stent, Hx Hypercholeste rolemia, Hx Hypertension Denies: Hx Coronary Artery Disease Pulmonary Medical History: Reports: Hx Sleep Apnea Denies: Hx Asthma, Hx Bronchitis, Hx COPD, Hx Pneumonia Neurological Medical History: Reports: Hx Migraine. Denies: Hx Cerebrovascular Accident, Hx Seizures Endocrine Medical History: Reports: Hx Diabetes Mellitus Type 2 Renal/ Medical History: Reports: Hx End Stage Renal Disease, Hx Hemodialysis - MWF, Hx Renal Insufficiency. Denies: Hx Peritoneal Dialysis GI Medical History: Reports: Hx Gastroesophageal Reflux Disease, Hx Irritable Bowel Musculoskeletal Medical History: Reports Hx Arthritis - right knee, Reports Hx Fibromyalgia, Reports Hx Musculoskeletal Deformity, Reports Hx Musculoskeletal Trauma Skin Medical History: Denies Hx Eczema, Denies Hx Psoriasis Psychiatric Medical History: Reports: Hx Depression, Hx Post Traumatic Stress Disorder Past Surgical History: Reports: Hx Appendectomy, Hx Cardiac Catheterization - 3, Hx Cholecystectomy, Hx Hysterectomy, Hx Orthopedic Surgery - RIGHT ANKLE SURGERY 01/2011, shoulder surgery 12/2106, Hx Thyroid Surgery, Hx Vascular Surgery - port a cath R upper chest. Denies: Hx Pacemaker - Immunizations Hx Diphtheria, Pertussis, Tetanus Vaccination: Yes - 06/17/17 Hx Pneumococcal Vaccination: 04/19/17 Review of Systems - Review of Systems Constitutional: denies: Chills, Fever Cardiovascular: Chest pain. denies: Palpitations Respiratory: Short of breath. denies: Cough -: Yes All other systems reviewed and negative Physical Exam - Vital signs Vitals: Pulse Ox 98 03/19/20 10:26 Interpretation: Normal - General General appearance: Appears well, Alert - HEENT Head: Normocephalic, Atraumatic Eyes: Normal Pupils: PERRL - Respiratory Respiratory status: No respiratory distress Chest status: Nontender Breath sounds: Normal Chest palpation: Normal - Cardiovascular Rhythm: Regular Heart sounds: Normal auscultation Murmur: No - Abdominal Inspection: Normal Distension: No distension Bowel sounds: Normal Tenderness: Nontender Organomegaly: No organomegaly - Back Back: Normal, Nontender - Extremities General upper extremity: Normal inspection, Nontender, Normal color, Normal ROM, Normal temperature General lower extremity: Normal inspection, Nontender, Normal color, Normal ROM, Normal temperature, Normal weight bearing. No: Hussein's sign - Neurological Neuro grossly intact: Yes Cognition: Normal Orientation: AAOx4 [place] Coma Scale Eye Opening: Spontaneous [place] Coma Scale Verbal: Oriented [place] Coma Scale Motor: Obeys Commands Casandra Coma Scale Total: 15 Speech: Normal Motor strength normal: LUE, RUE, LLE, RLE Sensory: Normal - Psychological Associated symptoms: Normal affect, Normal mood - Skin Skin Temperature: Warm Skin Moisture: Dry Skin Color: Normal Course - Vital Signs Vital signs: Temp Pulse Resp BP Pulse Ox 98 03/19/20 10:26 - Laboratory Result Diagrams: 03/19/20 11:38 03/19/20 11:38 Laboratory results interpreted by me: 03/19/20 03/19/20 03/19/20 11:38 11:38 11:38 Hgb 11.7 L Hct 35.4 L RDW 15.1 H Plt Count 131 L Lymph % (Auto) 12.6 L Seg Neutrophils % 82.0 H Potassium 5.4 H BUN 60 H Creatinine 5.74 H Est GFR ( Amer) 9 L Est GFR (MDRD) Non-Af 8 L Glucose 188 H Direct Bilirubin 0.6 H Alkaline Phosphatase 189 H Creatine Kinase 155 H NT-Pro-B Natriuret Pep 766 H Total Protein 8.4 H Urine Protein Leukocyte Esterase Rfl 03/19/20 12:37 Hgb Hct RDW Plt Count Lymph % (Auto) Seg Neutrophils % Potassium BUN Creatinine Est GFR ( Amer) Est GFR (MDRD) Non-Af Glucose Direct Bilirubin Alkaline Phosphatase Creatine Kinase NT-Pro-B Natriuret Pep Total Protein Urine Protein 100 H Leukocyte Esterase Rfl TRACE H - Diagnostic Test Radiology reviewed: Image reviewed, Reports reviewed - EKG Interpretation by Me EKG shows normal: Sinus rhythm Rate: Normal - 83 Rhythm: NSR When compared to previous EKG there are: No significant change Discharge - Discharge Clinical Impression: Chest pain with moderate risk for cardiac etiology Chest pain Qualifiers: Chest pain type: unspecified Qualified Code(s): R07.9 - Chest pain, unspecified Condition: Stable Disposition: HOME, SELF-CARE Instructions: Chest Pain of Unclear Cause ([facility]) Additional Instructions: Dr. Huang, the unloader operator, will contact you concerning follow-up. If you develop worsening chest pain, worsening shortness of breath or any other concerns before you can see Dr. Huang please return to the emergency department. Please follow-up at dialysis tomorrow as scheduled. Referrals: JAYLIN LEROY PA-C [Primary Care Provider] - Follow up as needed JEFERSON HUANG MD [ACTIVE STAFF] - Follow up in 1 week
[2020-03-19 15:59] VITALS: BP 113/68
== END 2020-03-19 15:59 | disposition home or self-care (01) ==
LOC: ER 10:05
DX: R07.9 Chest pain, unspecified (principal); R53.1 Weakness; R06.02 Shortness of breath; R11.0 Nausea; Z88.8 Allergy status to other drugs, medicaments and biological substances; I25.2 Old myocardial infarction; I10 Essential (primary) hypertension; E11.9 Type 2 diabetes mellitus without complications
CPT/HCPCS: 93005; 99285; 96361; 96374; 96375; 36415; 82553; 82550; 85025; 80053; 81001; 84484; 83880; 71045; 93010; J1200; J0780; J7040

== ENCOUNTER 2020-03-23 06:27 | Emergency (ER) | payer MEDICARE, OTHER, MEDICAID ==
[2020-03-23 07:03] LABS: ABSOLUTE LYMPHOCYTES (AUTO) 1.2 10^3/uL (0.5-4.7); ABSOLUTE MONOCYTES (AUTO) 0.6 10^3/uL (0.1-1.4); ABSOLUTE NEUT (AUTO) 4.7 10^3/uL (1.7-8.2); BASOPHILS % (AUTO) 0.4 % (0-2); EOSINOPHILS % (AUTO) 0.1 % (0-6); HEMATOCRIT 32.3 % (36.0-47.0); HEMOGLOBIN 10.5 g/dL (12.0-15.5); MEAN CORPUSCULAR HEMOGLOBIN 30.8 pg (27.0-33.4); MEAN CORPUSCULAR HGB CONC 32.6 g/dL (32.0-36.0); MEAN CORPUSCULAR VOLUME 94 fl (80-97); MONOCYTES % (AUTO) 9.3 % (3-13); PLATELET COUNT 120 10^3/uL (150-450); RED BLOOD COUNT 3.42 10^6/uL (3.72-5.28); RED CELL DISTRIBUTION WIDTH 15.3 % (11.5-14.0); SEGMENTED NEUTROPHILS % (AUTO) 71.2 % (42-78); TOTAL CELLS COUNTED % (AUTO) 100 %; WHITE BLOOD COUNT 6.6 10^3/uL (4.0-10.5)
[2020-03-23] MEDS ORDERED: PROCHLORPERAZINE EDISYLATE INJ 10 MG/2 ML VIAL IV ONE (07:11)
[2020-03-23] MEDS ORDERED: DIPHENHYDRAMINE HCL 50 MG/ML VIAL IV ONE (07:12)
[2020-03-23 07:21] LABS: ALBUMIN 3.8 g/dL (3.5-5.0); ALKALINE PHOSPHATASE 168 U/L (38-126); ANION GAP 10 (5-19); ASPARTATE AMINO TRANSFERASE 20 U/L (14-36); BILIRUBIN,DIRECT 0.4 mg/dL (0.0-0.4); BILIRUBIN,TOTAL 0.5 mg/dL (0.2-1.3); BLOOD UREA NITROGEN 71 mg/dL (7-20); CALCIUM 7.8 mg/dL (8.4-10.2); CARBON DIOXIDE 26 mmol/L (22-30); CHLORIDE 102 mmol/L (98-107); CREATINE KINASE 62 U/L (30-135); GLUCOSE 208 mg/dL (75-110); POTASSIUM 4.3 mmol/L (3.6-5.0); TOTAL PROTEIN 6.9 g/dL (6.3-8.2)
--- NOTE | 2020-03-23 07:22 | EKG REPORT ---
SEVERITY:- NORMAL ECG - SINUS RHYTHM : Confirmed by: Moreno Leonard MD 23-Mar-2020 07:22:10
[2020-03-23] MEDS ORDERED: CALCIUM GLUC IN NACL, ISO-OSM 1 GM/50 ML RTUPB IV ONE (07:32)
[2020-03-23 07:33] LABS: CREATINE KINASE MB 0.86 ng/mL (<4.55)
[2020-03-23 07:35] LABS: TROPONIN I < 0.012 ng/mL
--- NOTE | 2020-03-23 07:56 | RADIOLOGY REPORT (SQ) ---
EXAM DESCRIPTION: XR CHEST 1 VIEW COMPLETED DATE/TME: 03/23/2020 06:59 CLINICAL HISTORY: 54 years Female, chest pain COMPARISON: 04/14/17 NUMBER OF VIEWS/TECHNIQUE: 1/AP FINDINGS: Right jugular miniport central line tip at the mid right atrium; consider 5.6 cm retraction. Left total shoulder arthroplasty. Adequate lung volume, minimal atelectasis or scar in the lung bases, normal cardiac silhouette, and intact bony thorax. IMPRESSION: No acute cardiopulmonary findings.
[2020-03-23] MEDS ORDERED: HALOPERIDOL LACTATE INJ 5 MG/1 ML VIAL IV ONE (08:26)
--- NOTE | 2020-03-23 10:24 | ER Document Report ---
Entered by IHSAN KELLY SCRIBE 03/23/20 0652 Acting as scribe for:AUGIE GARCIA MD ED Cardiac - General Chief Complaint: Chest Pain Stated Complaint: CHEST PAIN Primary Care Provider: JAYLIN LEROY PA-C [Primary Care Provider] - Follow up as needed Mode of Arrival: Medic Information source: Patient, Emergency Med Personnel Notes: This 54 year old female patient with a history of HTN, HLD, CAD, SC, type 2 diabetes mellitus, and ESRD on HD (MWF, last dialyzed 03/22) presents to the ED today with complaints of sternal chest pain described as a pressure that started about x1 hour prior to arrival. Patient reports that she woke up and couldn't breathe, stating that it felt like something was sitting on her chest. She states that the pain radiates up the left side of her neck and down her left arm. She notes associated nausea, headache, and sore throat. Denies fever or chills. Patient was seen here on 03/19 with the same complaint and had a unremarkable cardiac work-up; she was discharged with instructions to follow up with distillery manager Dr. Leonard. She mentions that she is switching from hemodialysis to peritoneal dialysis due to her blood pressure dropping and that she has an appointment next week with Dr. Brewer to place a PD shunt. TRAVEL OUTSIDE OF THE [place] IN LAST 30 DAYS: No - Related Data Allergies/Adverse Reactions: codeine [Codeine] Allergy (Mild, Verified 03/19/20 10:08) Itching ketorolac tromethamine [From Toradol] Allergy (Unknown, Verified 03/19/20 10:08) Anxiety nalbuphine HCl [From Nubain] Allergy (Unknown, Verified 03/19/20 10:08) Anxiety ondansetron HCl [From Zofran] Allergy (Unknown, Verified 03/19/20 10:08) Itching droperidol [Droperidol] Allergy (Verified 03/19/20 10:08) reports heart racing, doesn't like how it makes her feel Past Medical History - General Information source: Patient, [facility] Records - Social History Smoking Status: Never Smoker Cigarette use (# per day): No Chew tobacco use (# tins/day): No Smoking Education Provided: No Frequency of alcohol use: None Drug Abuse: None Family History: Reviewed & Not Pertinent, CAD, CVA, Hypertension Patient has suicidal ideation: No Patient has homicidal ideation: No - Past Medical History Cardiac Medical History: Reports: Hx Coronary Artery Disease, Hx Heart Attack - w/o stent, Hx Hypercholesterolemia, Hx Hypertension Pulmonary Medical History: Reports: Hx Sleep Apnea Neurological Medical History: Reports: Hx Migraine Endocrine Medical History: Reports: Hx Diabetes Mellitus Type 2 Renal/ Medical History: Reports: Hx End Stage Renal Disease, Hx Hemodialysis - MWF, Hx Renal Insufficiency GI Medical History: Reports: Hx Gastroesophageal Reflux Disease, Hx Irritable Bowel Musculoskeletal Medical History: Reports Hx Arthritis - right knee, Reports Hx Fibromyalgia, Reports Hx Musculoskeletal Deformity, Reports Hx Musculoskeletal Trauma Psychiatric Medical History: Reports: Hx Depression, Hx Post Traumatic Stress Disorder Past Surgical History: Reports: Hx Appendectomy, Hx Cardiac Catheterization - 3, Hx Cholecystectomy, Hx Hysterectomy, Hx Orthopedic Surgery - RIGHT ANKLE SURGERY 01/2011, shoulder surgery 12/2106, Hx Thyroid Surgery, Hx Vascular Surgery - port a cath R upper chest - Immunizations Hx Diphtheria, Pertussis, Tetanus Vaccination: Yes - 06/17/17 Hx Pneumococcal Vaccination: 04/19/17 Review of Systems - Review of Systems Constitutional: See HPI. denies: Chills, Fever EENT: See HPI, Throat pain Cardiovascular: See HPI, Chest pain, Dyspnea Respiratory: No symptoms reported Gastrointestinal: See HPI, Nausea Genitourinary: No symptoms reported Female Genitourinary: No symptoms reported Musculoskeletal: See HPI, Muscle pain, Neck pain Skin: No symptoms reported Hematologic/Lymphatic: No symptoms reported Neurological/Psychological: See HPI, Headaches -: Yes All other systems reviewed and negative Physical Exam - Vital signs Vitals: Resp 19 03/23/20 06:32 Interpretation: Normal - General General appearance: Alert In distress: None - HEENT Head: Normocephalic, Atraumatic Eyes: Normal Pupils: PERRL Neck: Normal, Supple - Respiratory Respiratory status: No respiratory distress Chest status: Other - Port-a-cath in right upper chest wall Breath sounds: Decreased air movement - Diminished breath sounds Chest palpation: Normal - Cardiovascular Rhythm: Regular Heart sounds: Normal auscultation Murmur: No Friction rub: No Gallop: None auscultated - Abdominal Inspection: Obese Distension: Other - Mild ascites Bowel sounds: Normal Tenderness: Nontender Organomegaly: No organomegaly - Back Back: Normal, Nontender - Extremities General upper extremity: Normal inspection General lower extremity: Normal inspection. No: Edema - Neurological Neuro grossly intact: Yes Orientation: AAOx4 [place] Coma Scale Eye Opening: Spontaneous [place] Coma Scale Verbal: Oriented [place] Coma Scale Motor: Obeys Commands [place] Coma Scale Total: 15 - Psychological Associated symptoms: Normal affect, Normal mood - Skin Skin Temperature: Warm Skin Moisture: Dry Skin Color: Normal Course - Re-evaluation Re-evalutation: 03/23/20 10:57 Vital signs are stable patient is chest pain-free troponin x2 - no acute ST-T wave changes. - Vital Signs Vital signs: Temp Pulse Resp BP Pulse Ox 98.0 F 85 15 115/78 97 03/23/20 09:00 03/23/20 06:38 03/23/20 10:01 03/23/20 10:00 03/23/20 10:01 03/23/20 10:57 Vital signs stable - Laboratory Result Diagrams: 03/23/20 06:45 03/23/20 06:45 Laboratory results interpreted by me: 03/23/20 03/23/20 06:45 06:45 RBC 3.42 L Hgb 10.5 L Hct 32.3 L RDW 15.3 H Plt Count 120 L BUN 71 H Creatinine 5.27 H Est GFR ( Amer) 10 L Est GFR (MDRD) Non-Af 8 L Glucose 208 H Calcium 7.8 L Alkaline Phosphatase 168 H Patient has chronic renal failure BUN 71 creatinine 5.2 patient was dialyzed yesterday. - Diagnostic Test Radiology reviewed: Image reviewed, Reports reviewed Radiology results interpreted by me: 03/23/20 10:58 Chest X-Ray 03/23/20 06:33 IMPRESSION: No acute cardiopulmonary findings. Chest x-ray shows no acute process. - EKG Interpretation by Me Additional EKG results interpreted by me: 03/23/20 10:58 Twelve-lead EKG normal sinus rhythm rate of 82, left axis, normal sinus rhythm rate of 82 FL interval within normal range QRS intervals within normal range QT interval within normal range no evidence for an acute STEMI Discharge - Discharge Clinical Impression: Chronic renal failure, Chest pain, Chronic kidney disease, stage V, Hypertension Condition: Stable Disposition: HOME, SELF-CARE Instructions: Chest Wall Pain ([facility]) Additional Instructions: Kidney Failure When your kidneys no longer filter the blood adequately, we call this "kidney failure." While kidney failure can happen suddenly, usually it's the result of many years of slow damage. Kidneys can be injured by many different medical problems including infections, diabetes, high blood pressure, kidney stones, drug toxicity, and immune reactions. The symptoms of kidney failure do not develop until most of the normal kidney tissue has been lost. Early kidney failure usually has no symptoms. As it gets worse, symptoms can include weakness, confusion, high blood pressure, swelling, nausea, anemia, and itching. The seriousness of kidney failure is determined by measuring kidney function tests such as BUN or creatinine. The cause of kidney failure may be obvious from the medical history, but occasionally requires special tests such as an angiogram or kidney biopsy. Kidney failure can cause high blood pressure, and uncontrolled hypertension damages kidneys. Good control of blood pressure is important. If you have diabetes, good blood sugar control helps prevent further kidney damage. Fluid retention can be monitored by checking your weight daily. It's best to eat a diet low in protein, potassium, and salt. When kidney failure becomes severe, dialysis or kidney transplant may be required. Call the doctor or return if you develop significant weakness, repeated vomiting, severe lightheadedness, confusion, severe headache, or other serious change in your health. Referrals: JAYLIN LEROY PA-C [Primary Care Provider] - Follow up as needed I personally performed the services described in the documentation, reviewed and edited the documentation which was dictated to the scribe in my presence, and it accurately records my words and actions.
[2020-03-23 11:24] VITALS: BP 115/73
== END 2020-03-23 11:21 | disposition home or self-care (01) ==
LOC: ER 06:27
DX: R07.89 Other chest pain (principal); I12.0 Hypertensive chronic kidney disease with stage 5 chronic kidney disease or end stage renal disease; E11.22 Type 2 diabetes mellitus with diabetic chronic kidney disease; N18.5 Chronic kidney disease, stage 5; Z99.2 Dependence on renal dialysis; R11.0 Nausea; R51.9 Headache, unspecified; J02.9 Acute pharyngitis, unspecified; M79.10 Myalgia, unspecified site; M54.2 Cervicalgia; I25.10 Atherosclerotic heart disease of native coronary artery without angina pectoris; I25.2 Old myocardial infarction; Z88.6 Allergy status to analgesic agent; Z88.5 Allergy status to narcotic agent; Z88.8 Allergy status to other drugs, medicaments and biological substances; R18.8 Other ascites
CPT/HCPCS: 93005; 99285; 96374; 96375; 36415; 82553; 82550; 85025; 80053; 84484; 71045; 93010; J1200; J1630; J0780; J1642; J0610

== ENCOUNTER 2020-03-25 14:33 | Emergency (ER) | payer MEDICARE, OTHER, MEDICAID ==
--- NOTE | 2020-03-25 15:44 | RADIOLOGY REPORT (SQ) ---
EXAM DESCRIPTION: CHEST SINGLE VIEW IMAGES COMPLETED DATE/TIME: 03/25/2020 3:33 pm REASON FOR STUDY: bed 10 chest pain COMPARISON: 03/23/2020 EXAM PARAMETERS: NUMBER OF VIEWS: One view. TECHNIQUE: Single frontal radiographic view of the chest acquired. RADIATION DOSE: NA LIMITATIONS: None. FINDINGS: LUNGS AND PLEURA: Low lung volumes. No infiltrate. No pneumothorax. No mass. No pleura l effusion. MEDIASTINUM AND HILAR STRUCTURES: No masses. Contour normal. HEART AND VASCULAR STRUCTURES: Heart normal in size. Normal vasculature. BONES: No acute findings. HARDWARE: Injection port on the right. OTHER: No other significant finding. IMPRESSION: NO ACUTE RADIOGRAPHIC FINDING IN THE CHEST. TECHNICAL DOCUMENTATION: JOB ID: [id number] 2010 [employer]- All Rights Reserved Reading location - IP/workstation name: [email or web address]
[2020-03-25 16:31] LABS: ABSOLUTE LYMPHOCYTES (AUTO) 0.8 10^3/uL (0.5-4.7); ABSOLUTE MONOCYTES (AUTO) 0.5 10^3/uL (0.1-1.4); ABSOLUTE NEUT (AUTO) 6.9 10^3/uL (1.7-8.2); BASOPHILS % (AUTO) 0.2 % (0-2); HEMATOCRIT 30.8 % (36.0-47.0); LYMPHOCYTES % (AUTO) 9.5 % (13-45); MEAN CORPUSCULAR HEMOGLOBIN 30.6 pg (27.0-33.4); MEAN CORPUSCULAR HGB CONC 32.6 g/dL (32.0-36.0); MEAN CORPUSCULAR VOLUME 94 fl (80-97); MONOCYTES % (AUTO) 5.8 % (3-13); PLATELET COUNT 134 10^3/uL (150-450); RED BLOOD COUNT 3.28 10^6/uL (3.72-5.28); RED CELL DISTRIBUTION WIDTH 15.6 % (11.5-14.0); SEGMENTED NEUTROPHILS % (AUTO) 84.5 % (42-78); TOTAL CELLS COUNTED % (AUTO) 100 %; WHITE BLOOD COUNT 8.2 10^3/uL (4.0-10.5)
--- NOTE | 2020-03-25 16:32 | EKG REPORT ---
SEVERITY:- NORMAL ECG - SINUS RHYTHM : Confirmed by: Darwin Curiel 25-Mar-2020 16:32:28
[2020-03-25 16:57] LABS: ALBUMIN 3.8 g/dL (3.5-5.0); ALKALINE PHOSPHATASE 152 U/L (38-126); ANION GAP 10 (5-19); ASPARTATE AMINO TRANSFERASE 23 U/L (14-36); BILIRUBIN,DIRECT 0.4 mg/dL (0.0-0.4); BILIRUBIN,TOTAL 0.6 mg/dL (0.2-1.3); BLOOD UREA NITROGEN 92 mg/dL (7-20); CALCIUM 7.7 mg/dL (8.4-10.2); CARBON DIOXIDE 24 mmol/L (22-30); CHLORIDE 102 mmol/L (98-107); CREATINE KINASE 84 U/L (30-135); GLUCOSE 228 mg/dL (75-110); POTASSIUM 5.1 mmol/L (3.6-5.0); TOTAL PROTEIN 6.9 g/dL (6.3-8.2)
[2020-03-25 17:09] LABS: CREATINE KINASE MB 1.45 ng/mL (<4.55)
[2020-03-25 17:12] LABS: TROPONIN I < 0.012 ng/mL
[2020-03-25] MEDS ORDERED: PROCHLORPERAZINE EDISYLATE INJ 10 MG/2 ML VIAL IV ONE (17:54)
[2020-03-25] MEDS ORDERED: DIPHENHYDRAMINE HCL 50 MG/ML VIAL IV ONE (17:54)
--- NOTE | 2020-03-25 20:59 | ER Document Report ---
ED General - General Chief Complaint: Chest Pain Stated Complaint: CHEST PAIN Time Seen by Provider: 03/25/20 17:37 Primary Care Provider: JAYLIN LEROY PA-C [Primary Care Provider] - Follow up as needed TRAVEL OUTSIDE OF THE [place] IN LAST 30 DAYS: No - HPI Notes: This patient has a long and well-documented history of chest pain intermittently. She was being seen in surgery clinic today to be evaluated for peritoneal dialysis as opposed to hemodialysis. She complained of pain in the left side of her neck and in her arm as well as her left chest. This was not accompanied by diaphoresis or dyspnea. She has had this multiple times in the past. She has had several recent ED visits for this. Her work-ups have all been negative. She had a previous catheterization at another facility earlier this year which showed no obstructions according to the patient. Those records are not available for me to review. She has an appointment to see one of our local linoleum mechanic within the next few days for the same issue. She took some nitroglycerin which her primary care provider prefers prescribed for her. It really did not help her pain very much. The surgery clinic staff felt that she should come to the emergency department to be evaluated. She has end-stage collins l disease. She is diabetic hypertensive. She is otherwise in her usual state of health. - Related Data Allergies/Adverse Reactions: codeine [Codeine] Allergy (Mild, Verified 03/19/20 10:08) Itching ketorolac tromethamine [From Toradol] Allergy (Unknown, Verified 03/19/20 10:08) Anxiety nalbuphine HCl [From Nubain] Allergy (Unknown, Verified 03/19/20 10:08) Anxiety ondansetron HCl [From Zofran] Allergy (Unknown, Verified 03/19/20 10:08) Itching droperidol [Droperidol] Allergy (Verified 03/19/20 10:08) reports heart racing, doesn't like how it makes her feel Past Medical History - Social History Smoking Status: Never Smoker Chew tobacco use (# tins/day): No Frequency of alcohol use: None Drug Abuse: None Family History: Reviewed & Not Pertinent, CAD, CVA, Hypertension - Medical History Medical History: Other Notes: Medical history reviewed as documented in the electronic health record. - Past Medical History Cardiac Medical History: Reports: Hx Coronary Artery Disease, Hx Heart Attack - w/o stent, Hx Hypercholesterolemia, Hx Hypertension Pulmonary Medical History: Reports: Hx Sleep Apnea Denies: Hx Asthma, Hx Bronchitis, Hx COPD, Hx Pneumonia Neurological Medical History: Reports: Hx Migraine. Denies: Hx Cerebrovascular Accident, Hx Seizures Endocrine Medical History: Reports: Hx Diabetes Mellitus Type 2 Renal/ Medical History: Reports: Hx End Stage Renal Disease, Hx Hemodialysis - MWF, Hx Renal Insufficiency. Denies: Hx Peritoneal Dialysis GI Medical History: Reports: Hx Gastroesophageal Reflux Disease, Hx Irritable Bowel Musculoskeletal Medical History: Reports Hx Arthritis - right knee, Reports Hx Fibromyalgia, Reports Hx Musculoskeletal Deformity, Reports Hx Musculoskeletal Trauma Skin Medical History: Denies Hx Eczema, Denies Hx Psoriasis Psychiatric Medical History: Reports: Hx Depression, Hx Post Traumatic Stress Disorder Past Surgical History: Reports: Hx Appendectomy, Hx Cardiac Catheterization - 3, Hx Cholecystectomy, Hx Hysterectomy, Hx Orthopedic Surgery - RIGHT ANKLE SURGERY 01/2011, shoulder surgery 12/2106, Hx Thyroid Surgery, Hx Vascular Surgery - port a cath R upper chest. Denies: Hx Pacemaker - Immunizations Hx Diphtheria, Pertussis, Tetanus Vaccination: Yes - 06/17/17 Hx Pneumococcal Vaccination: 04/19/17 Review of Systems - Review of Systems Notes: All other systems are reviewed and are noncontributory except as noted in the history of present illness. Physical Exam - Vital signs Vitals: Temp Pulse Ox 97.8 F 98 03/25/20 14:33 03/25/20 14:33 - Notes Notes: General: Well-developed well-nourished female no acute distress. Vital signs and nursing chief complaint are reviewed. Neck: Supple no adenopathy trachea midline. Chest: Lungs clear to auscultation. Mildly tender to palpation. Heart: Regular rate and rhythm no murmur. Abdomen: Obese soft nontender no mass organomegaly. Extremities: Without clubbing cyanosis or edema. Neuro: Alert and oriented x3. No focal deficits noted. Course - Re-evaluation Re-evalutation: 03/25/20 20:56 Interestingly the patient has a long history of migraine as well and we talked about that. She said that some of her symptoms reminded her more of a bad migraine than of any sort of chest pain. By the time I had seen her she had already had her labs done on the first round. Her EKG was stable. Her troponin was negative. Her chest x-ray was unremarkable. All the rest of her labs were normal or nondiagnostic for her. I elected to treat her with some Benadryl and Compazine which she has had before for her migraine. This improved her pain to the point where she was able to sleep for some time. She awakened and said she was still having some pain in her left shoulder area but it was better. Repeat troponin and EKG were stable and unchanged. I feel that she can be safely discharged home. She should follow up with Dr. Leonard as planned. She needs to contact the bi tri operator in the morning to make arrangements for her missed dialysis session today. - Vital Signs Vital signs: Temp Pulse Resp BP Pulse Ox 98.4 F 17 122/78 94 03/25/20 21:01 03/25/20 21:01 03/25/20 21:01 03/25/20 21:01 - Laboratory Result Diagrams: 03/25/20 15:53 03/25/20 15:53 Laboratory results interpreted by me: 03/25/20 03/25/20 15:53 15:53 RBC 3.28 L Hgb 10.0 L Hct 30.8 L RDW 15.6 H Plt Count 134 L Lymph % (Auto) 9.5 L Seg Neutrophils % 84.5 H Sodium 135.9 L Potassium 5.1 H BUN 92 H Creatinine 5.88 H Est GFR ( Amer) 9 L Est GFR (MDRD) Non-Af 7 L Glucose 228 H Calcium 7.7 L Alkaline Phosphatase 152 H Discharge - Discharge Clinical Impression: Chest pain Qualifiers: Chest pain type: unspecified Qualified Code(s): R07.9 - Chest pain, unspecified Condition: Good Disposition: HOME, SELF-CARE Instructions: Chest Pain of Unclear Cause ([facility]) Additional Instructions: Continue taking your regular medications as prescribed. Contact your nephrology office tomorrow morning to make arrangements for dialysis. See the linoleum mechanic as scheduled for your evaluation. Return if any other concerning symptoms develop. Referrals: JAYLIN LEROY PA-C [Primary Care Provider] - Follow up as needed
[2020-03-25 21:37] VITALS: BP 122/78
--- NOTE | 2020-03-26 17:48 | EKG REPORT ---
SEVERITY:- OTHERWISE NORMAL ECG - SINUS RHYTHM BORDERLINE LEFT AXIS DEVIATION : Confirmed by: Darwin Curiel 26-Mar-2020 17:46:42
== END 2020-03-25 21:31 | disposition home or self-care (01) ==
LOC: ER 14:33
DX: R07.9 Chest pain, unspecified (principal); E11.22 Type 2 diabetes mellitus with diabetic chronic kidney disease; I12.0 Hypertensive chronic kidney disease with stage 5 chronic kidney disease or end stage renal disease; N18.6 End stage renal disease; Z99.2 Dependence on renal dialysis; I25.2 Old myocardial infarction
CPT/HCPCS: 93005; 36591; 99285; 96374; 96375; 36415; 82553; 82550; 85025; 80053; 84484; 71045; 93010; J1200; J0780; J1642

== ENCOUNTER 2020-04-07 19:42 | Observation (INO) | payer OTHER, MEDICARE, MEDICAID ==
[2020-04-07] MEDS ORDERED: MORPHINE SULFATE 10 MG/ML INJ IV ONE (20:21)
--- NOTE | 2020-04-07 20:24 | ER Document Report ---
ED Medical Screen (RME) - General Chief Complaint: Fall Stated Complaint: FALL/NECK PAIN Time Seen by Provider: 04/07/20 20:13 Primary Care Provider: JAYLIN LEROY PA-C [Primary Care Provider] - Follow up as needed Notes: Patient states that she was cooking and passed out waking up on the floor. Patient is uncertain how long she had passed out for. Patient states that she had been having episodes of chest pain off and on throughout the day. Patient complains of headache, neck and back pain as well as chest pain. Patient reports some nausea. Patient denies any vomiting or shortness of breath. Patient has a history of hypertension, diabetes and is a dialysis patient. Patient normally dialyzes on Wednesday and has not missed any sessions. I have greeted and performed a rapid initial assessment of this patient. A comprehensive ED assessment and evaluation of the patient, analysis of test results and completion of the medical decision making process will be conducted by additional ED providers. TRAVEL OUTSIDE OF THE [place] IN LAST 30 DAYS: No - Related Data Allergies/Adverse Reactions: codeine [Codeine] Allergy (Mild, Verified 03/19/20 10:08) Itching ketorolac tromethamine [From Toradol] Allergy (Unknown, Verified 03/19/20 10:08) Anxiety nalbuphine HCl [From Nubain] Allergy (Unknown, Verified 03/19/20 10:08) Anxiety ondansetron HCl [From Zofran] Allergy (Unknown, Verified 03/19/20 10:08) Itching droperidol [Droperidol] Allergy (Verified 03/19/20 10:08) reports heart racing, doesn't like how it makes her feel Past Medical History - Past Medical History Cardiac Medical History: Reports: Hx Coronary Artery Disease, Hx Heart Attack - w/o stent, Hx Hypercholesterolemia, Hx Hypertension Pulmonary Medical History: Reports: Hx Sleep Apnea Denies: Hx Asthma, Hx Bronchitis, Hx COPD, Hx Pneumonia Neurological Medical History: Reports: Hx Migraine. Denies: Hx Cerebrovascular Accident, Hx Seizures Endocrine Medical History: Reports: Hx Diabetes Mellitus Type 2 Renal/ Medical History: Reports: Hx End Stage Renal Disease, Hx Hemodialysis - MWF, Hx Renal Insufficiency. Denies: Hx Peritoneal Dialysis GI Medical History: Reports: Hx Gastroesophageal Reflux Disease, Hx Irritable Bowel Musculoskeltal Medical History: Reports Hx Arthritis - right knee, Reports Hx Fibromyalgia, Reports Hx Musculoskeletal Deformity, Reports Hx Musculoskeletal Trauma Skin Medical History: Denies Hx Eczema, Denies Hx Psoriasis Psychiatric Medical History: Reports: Hx Depression, Hx Post Traumatic Stress Disorder Past Surgical History: Reports: Hx Appendectomy, Hx Cardiac Catheterization - 3, Hx Cholecystectomy, Hx Hysterectomy, Hx Orthopedic Surgery - RIGHT ANKLE SURGERY 01/2011, shoulder surgery 12/2106, Hx Thyroid Surgery, Hx Vascular Surgery - port a cath R upper chest. Denies: Hx Pacemaker - Immunizations Hx Diphtheria, Pertussis, Tetanus Vaccination: Yes - 06/17/17 Physical Exam - Vital signs Vitals: Temp Pulse Resp BP Pulse Ox 98.0 F 87 18 149/82 H 94 04/07/20 08:09 04/07/20 08:09 04/07/20 08:09 04/07/20 08:09 04/07/20 08:09 - General General appearance: Alert Notes: Midline spinal tenderness throughout entire spine, no obvious step-off or deformity - Cardiovascular Rhythm: Regular Heart sounds: S1 appreciated, S2 appreciated Course - Vital Signs Vital signs: Temp Pulse Resp BP Pulse Ox 98.0 F 87 18 149/82 H 94 04/07/20 08:09 04/07/20 08:09 04/07/20 08:09 04/07/20 08:09 04/07/20 08:09 Doctor's Discharge - Discharge Referrals: JAYLIN LEROY PA-C [Primary Care Provider] - Follow up as needed
--- NOTE | 2020-04-07 21:38 | RADIOLOGY REPORT (SQ) ---
EXAM DESCRIPTION: XR CHEST 1 VIEW COMPLETED DATE/TME: 04/07/2020 21:07 CLINICAL HISTORY: 54 years, Female, cp COMPARISON: None. NUMBER OF VIEWS: TECHNIQUE: LIMITATIONS: None. FINDINGS: No evidence of pulmonary infiltrate or pleural effusion. The heart and mediastinum are unremarkable. Pulmonary vascularity appears normal. There is a right subclavian vascular stent. There is a left shoulder prosthesis. IMPRESSION: No acute finding. copyright 2010 [employer]- All Rights Reserved
--- NOTE | 2020-04-07 21:39 | RADIOLOGY REPORT (SQ) ---
EXAM DESCRIPTION: L SPINE WHOLE [facility]: XR LUMBAR SPINE ANTEROPOSTERIOR, LATERAL, AND OBLIQUES Views: 5 CLINICAL HISTORY: 54 years Female; syncope, fall, DUKES, neck, back pain; COMPARISON: None. FINDINGS: Alignment is normal. No subluxation or significant loss of intervertebral disc height or vertebral body height. No evidence for acute fracture. No focal bone lesions. Right upper quadrant surgical clips are noted. IMPRESSION: 1. Normal lumbar spine.
--- NOTE | 2020-04-07 21:42 | RADIOLOGY REPORT (SQ) ---
EXAM DESCRIPTION: T SPINE AP/LAT 04/07/2020 8:21 PM [employer]OTEL [employer]ER CLINICAL HISTORY: 54 years Female, syncope, fall, DUKES, neck, back pain; ; COMPARISON: Prior study from 12/26/2019 FINDINGS: 3 views were obtained. Vascular stent projects over the right upper hemithorax. Multiple surgical clips are also noted about the rightward aspect of the neck. Additional surgical clips project over the right upper quadrant, likely indicating prior cholecystectomy. Otherwise, thoracic vertebral body heights and alignments are maintained. Intervertebral disc spaces are also well maintained. No acute fracture or malalignment. IMPRESSION: No osseous anomaly.
--- NOTE | 2020-04-07 22:08 | RADIOLOGY REPORT (SQ) ---
EXAM DESCRIPTION: CT HEAD WITHOUT CLINICAL HISTORY: 54 years Female, syncope, fall, DUKES COMPARISON: CT head 03/15/2020 TECHNIQUE: Axial images of the head were performed without the use of intravenous contrast, with sagittal and coronal reformatted images. This exam was performed according to our departmental dose-optimization program which includes use of Automated Exposure Control, adjustment of the mA and/or kV according to patient size and/or use of iterative reconstruction technique. FINDINGS: No skull fracture. No intracranial bleed. No evidence of acute infarct. No evidence of mass or hydrocephalus. There is a small osteoma in the right frontal sinus. The sinuses are otherwise clear. There is no significant change, as compared with the prior CT scan. IMPRESSION: No skull fracture. No intracranial bleed.
--- NOTE | 2020-04-07 22:13 | RADIOLOGY REPORT (SQ) ---
EXAM DESCRIPTION: CT CERVICAL SPINE WITHOUT CLINICAL HISTORY: 54 years Female, syncope, fall, neck pain COMPARISON: CT cervical spine 12/26/2019 TECHNIQUE: Axial images of the cervical spine were performed, without the use of intravenous contrast, with sagittal and coronal reformatted images This exam was performed according to our departmental dose-optimization program which includes use of Automated Exposure Control, adjustment of the mA and/or kV according to patient size and/or use of iterative reconstruction technique. FINDINGS: There is possible prevertebral soft tissue swelling. No fracture or dislocation. There are mild degenerative changes in the lower cervical region. There is no significant spinal stenosis. IMPRESSION: Possible prevertebral soft tissue swelling. No fracture or dislocation.
[2020-04-07] MEDS ORDERED: ACETAMINOPHEN 325 MG TABLET PO ONE (23:42)
[2020-04-07] MEDS ORDERED: PROMETHAZINE HCL INJ 25 MG/1 ML VIAL IM ONE (23:43)
[2020-04-07] MEDS ORDERED: HYDROMORPHONE HCL INJ/PF 2 MG/ML AMPULE IM ONE (23:48)
--- NOTE | 2020-04-07 23:50 | ER Document Report ---
ED Syncope and Near Syncope - General Chief Complaint: Passed Out Prior to Arrival Stated Complaint: FALL/NECK PAIN Time Seen by Provider: 04/07/20 20:13 Primary Care Provider: JAYLIN LEROY PA-C [Primary Care Provider] - Follow up as needed Notes: Patient is a 54-year-old female with history of end-stage renal disease, currently on dialysis who presents to the emergency department for syncopal episode. Patient states that she was talking on the phone "passing out." Patient reports that she is neck and head pain. She has been via EMS. States that she had 3 episodes of vomiting. TRAVEL OUTSIDE OF THE [place] IN LAST 30 DAYS: No - Related Data Allergies/Adverse Reactions: codeine [Codeine] Allergy (Mild, Verified 03/19/20 10:08) Itching ketorolac tromethamine [From Toradol] Allergy (Unknown, Verified 03/19/20 10:08) Anxiety nalbuphine HCl [From Nubain] Allergy (Unknown, Verified 03/19/20 10:08) Anxiety ondansetron HCl [From Zofran] Allergy (Unknown, Verified 03/19/20 10:08) Itching droperidol [Droperidol] Allergy (Verified 03/19/20 10:08) reports heart racing, doesn't like how it makes her feel prochlorperazine [From Compazine] Allergy (Verified 04/07/20 20:27) Home Medications: "list in computer" Past Medical History - Social History Smoking Status: Never Smoker Family History: Reviewed & Not Pertinent, CAD, CVA, Hypertension - Past Medical History Cardiac Medical History: Reports: Hx Coronary Artery Disease, Hx Heart Attack - w/o stent, Hx Hypercholesterolemia, Hx Hypertension Pulmonary Medical History: Reports: Hx Sleep Apnea Denies: Hx Asthma, Hx Bronchitis, Hx COPD, Hx Pneumonia Neurological Medical History: Reports: Hx Migraine. Denies: Hx Cerebrovascular Accident, Hx Seizures Endocrine Medical History: Reports: Hx Diabetes Mellitus Type 2 Renal/ Medical History: Reports: Hx End Stage Renal Disease, Hx Hemodialysis - MWF, Hx Renal Insufficiency. Denies: Hx Peritoneal Dialysis GI Medical History: Reports: Hx Gastroesophageal Reflux Disease, Hx Irritable Bowel Musculoskeletal Medical History: Reports Hx Arthritis - right knee, Reports Hx Fibromyalgia, Reports Hx Musculoskeletal Deformity, Reports Hx Musculoskeletal Trauma Skin Medical History: Denies Hx Eczema, Denies Hx Psoriasis Psychiatric Medical History: Reports: Hx Depression, Hx Post Traumatic Stress Disorder Past Surgical History: Reports: Hx Appendectomy, Hx Cardiac Catheterization - 3, Hx Cholecystectomy, Hx Hysterectomy, Hx Orthopedic Surgery - RIGHT ANKLE SURGERY 01/2011, shoulder surgery 12/2106, Hx Thyroid Surgery, Hx Vascular Surgery - port a cath R upper chest. Denies: Hx Pacemaker - Immunizations Hx Diphtheria, Pertussis, Tetanus Vaccination: Yes - 06/17/17 Hx Pneumococcal Vaccination: 04/19/17 Review of Systems - Review of Systems Notes: REVIEW OF SYSTEMS: CONSTITUTIONAL : Denies recent illness. Denies recent unintentional weight loss. Denies fever, chills, or sweats. EENT: Denies eye, ear, throat, or mouth pain, discharge, or symptoms. Denies nasal or sinus congestion. CARDIOVASCULAR: Denies chest pain. RESPIRATORY: Denies shortness of breath, cough, congestion, difficulty breathing, or wheezing. GASTROINTESTINAL: Denies nausea, vomiting, and diarrhea. Denies abdominal pain. Denies constipation. GENITOURINARY: Denies difficulty urinating, burning, blood in urine, urgency or frequency. MUSCULOSKELETAL: See HPI. SKIN: Denies rash, itchiness, or lesions HEMATOLOGIC : Denies easy bruising or bleeding. LYMPHATIC: Denies swollen, painful, enlarged glands. NEUROLOGICAL: See HPI. PSYCHIATRIC: Denies stress, anxiety, alteration in sleep patterns, or depression. All other systems reviewed and negative. Physical Exam - Vital signs Vitals: Temp Pulse Resp BP Pulse Ox 98.0 F 87 18 149/82 H 94 04/07/20 08:09 04/07/20 08:09 04/07/20 08:09 04/07/20 08:09 04/07/20 08:09 - Notes Notes: PHYSICAL EXAMINATION: GENERAL: Appears well, healthy, well-nourished, no acute distress. HEAD: Normocephalic, atraumatic. EYES: PERRL, conjunctiva normal, all extraocular movements intact, sclera nonicteric ENT: Moist mucous membranes. NECK: Supple, no noticeable swelling, redness, rash. Normal range of motion. LUNGS: Crackles noted in bilateral bases. CARDIOVASCULAR: S1-S2, regular rate, regular rhythm. Radial pulses 2+, normal. ABDOMEN: Normoactive bowel sounds. Soft, nontender, no guarding, no rebound tenderness, and no masses palpated. EXTREMITIES: Normal strength and range of motion, no pitting or edema. No cyanosis. NEUROLOGICAL: Moves all extremities upon command. Strength 5/5 in all extremities. PSYCH: Normal mood, normal affect. SKIN: Warm, dry. No rash, lesions, ulcerations noted. Normal skin turgor. Course - Re-evaluation Re-evalutation: 04/08/20 03:15 I was called to bedside due to the patient having an oxygen saturation in the 70s. I ended up evaluating the patient and she was placed on nasal cannula and her oxygen saturation went up to the 90s. 04/08/20 07:[address] Tong, the college service officer on-call. She is recommending the patient be observed overnight. Patient reported to me that she was tested for Covid on Wednesday for sore throat. Dr. Tong wants patient to be tested for Covid again. Patient denies any sore throat at this time. 04/08/20 07:[address] aLtham, hospitalist doctor. He will evaluate the patient. 04/08/20 09:[address] Latham. Patient will be admitted to the telemetry unit for observation. - Vital Signs Vital signs: Temp Pulse Resp BP Pulse Ox 98.0 F 87 15 138/82 H 97 04/07/20 08:09 04/07/20 08:09 04/08/20 07:01 04/08/20 06:39 04/08/20 07:01 - Laboratory Results Result Diagrams: 04/08/20 00:02 04/08/20 01:25 Laboratory Results Interpreted: 04/08/20 04/08/20 00:02 01:25 RBC 3.45 L Hgb 10.2 L Hct 31.5 L RDW 15.3 H BUN 78 H Creatinine 6.06 H Est GFR ( Amer) 9 L Est GFR (MDRD) Non-Af 7 L Glucose 134 H Calcium 7.2 L Direct Bilirubin 0.6 H Alkaline Phosphatase 144 H Critical Laboratory Results Reviewed: No Critical Results - Radiology Results Critical Radiology Results Reviewed: No Critical Results Discharge - Discharge Clinical Impression: End stage renal disease on dialysis Fall Qualifiers: Encounter type: initial encounter Qualified Code(s): W19.XXXA - Unspecified fall, initial encounter Syncope Qualifiers: Syncope type: unspecified Qualified Code(s): R55 - Syncope and collapse Condition: Stable Disposition: ADMITTED OBSERVATION Admitting Provider: Yeison (Hospitalist) Unit Admitted: Telemetry Referrals: JAYLIN LEROY PA-C [Primary Care Provider] - Follow up as needed
[2020-04-08 00:26] LABS: ABSOLUTE BASOPHILS # (AUTO) 0.1 10^3/uL (0.0-0.2); ABSOLUTE EOSINOPHILS # (AUTO) 0.1 10^3/uL (0.0-0.6); ABSOLUTE LYMPHOCYTES (AUTO) 1.8 10^3/uL (0.5-4.7); ABSOLUTE MONOCYTES (AUTO) 0.9 10^3/uL (0.1-1.4); ABSOLUTE NEUT (AUTO) 5.2 10^3/uL (1.7-8.2); BASOPHILS % (AUTO) 0.9 % (0-2); HEMATOCRIT 31.5 % (36.0-47.0); HEMOGLOBIN 10.2 g/dL (12.0-15.5); LYMPHOCYTES % (AUTO) 22.7 % (13-45); MEAN CORPUSCULAR HEMOGLOBIN 29.5 pg (27.0-33.4); MEAN CORPUSCULAR HGB CONC 32.4 g/dL (32.0-36.0); MEAN CORPUSCULAR VOLUME 91 fl (80-97); MONOCYTES % (AUTO) 10.5 % (3-13); PLATELET COUNT 202 10^3/uL (150-450); RED BLOOD COUNT 3.45 10^6/uL (3.72-5.28); RED CELL DISTRIBUTION WIDTH 15.3 % (11.5-14.0); SEGMENTED NEUTROPHILS % (AUTO) 64.9 % (42-78); TOTAL CELLS COUNTED % (AUTO) 100 %; WHITE BLOOD COUNT 8.1 10^3/uL (4.0-10.5)
[2020-04-08 02:42] LABS: ALBUMIN 3.6 g/dL (3.5-5.0); ALKALINE PHOSPHATASE 144 U/L (38-126); ANION GAP 11 (5-19); ASPARTATE AMINO TRANSFERASE 23 U/L (14-36); BILIRUBIN,DIRECT 0.6 mg/dL (0.0-0.4); BILIRUBIN,TOTAL 0.7 mg/dL (0.2-1.3); BLOOD UREA NITROGEN 78 mg/dL (7-20); CALCIUM 7.2 mg/dL (8.4-10.2); CARBON DIOXIDE 25 mmol/L (22-30); CHLORIDE 104 mmol/L (98-107); GLUCOSE 134 mg/dL (75-110); POTASSIUM 3.8 mmol/L (3.6-5.0); TOTAL PROTEIN 6.6 g/dL (6.3-8.2)
[2020-04-08] MEDS ORDERED: HALOPERIDOL LACTATE INJ 5 MG/1 ML VIAL IM ONE (03:16)
[2020-04-08] MEDS ORDERED: DIPHENHYDRAMINE HCL 50 MG/ML VIAL IV ONE ×3 (03:46→12:30)
--- NOTE | 2020-04-08 07:52 | EKG REPORT ---
SEVERITY:- OTHERWISE NORMAL ECG - SINUS RHYTHM LATE PRECORDIAL TRANSITION : Confirmed by: Eliseo Locke MD 08-Apr-2020 07:51:25
[2020-04-08] MEDS ORDERED: NORMAL SALINE 1000 ML 1,000 ML IV PRN (10:17)
[2020-04-08] MEDS ORDERED: CALCIUM GLUC IN NACL, ISO-OSM 1 GM/50 ML RTUPB IV ONE ×3 (10:30→16:30)
[2020-04-08] MEDS ORDERED: PROMETHAZINE HCL INJ 25 MG/1 ML VIAL IV ONE (11:07)
--- NOTE | 2020-04-08 13:14 | PDOC CONSULTATION ---
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 The patient said that at home at around 8 PM she slipped on the floor while going to the kitchen and passed out for about 3 minutes witnessed by her . Her called 911 and she was brought to the ED. Patient was worked up with x-rays and head CT which were all negative. Her chest x-ray was also negative. 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 Patient is not on any home oxygen. Patient said she was tested for Covid at [facility] last Wednesday and was told that she is negative. Patient complains of some headache on her occipital area after the fall. She reports some shortness of breath and cough productive of some whitish phlegm and some sore throat for the last couple of days. She denies any fever, chest pains nor any exposure to anybody with Covid that she is aware of. Because of the oxygen desaturation I asked the ER to check her again for Covid which turned out to be negative. Due to the desaturation I just recommended patient to be observed at least to make sure she does not have any further desaturation and need further work-up. Her last hemodialysis was last Wednesday. She is about 6 kg over her dry weight though. I am seeing the patient during dialysis this morning. She seems to be pretty comfortable and is currently on room air with oxygen saturation of 100%. The only complaint she has is her headache but other than that she is tolerating dialysis without any problems. Past Medical History Cardiac Medical History: Reports: Coronary Artery Disease, Hyperlipidemia, Hypertension-primary, Myocardial Infarction - w/o stent Pulmonary Medical History: Reports: Asthma, Sleep Apnea Neurological Medical History: Reports: Migraine Endocrine Medical History: Reports: Diabetes Mellitus Type 2, Obesity Complications of Diabetes: Reports: Gastroparesis Renal/ Medical History: Reports: End Stage Renal Disease, Other - FSGS GI Medical History: Reports: Gastroesophageal Reflux Disease, Other - Diverticulosis and IBS Musculoskeltal Medical History: Reports: Arthritis - right knee, Fibromyalgia Psychiatric Medical History: Reports: Depression, Post Traumatic Stress Disorder Hematology Medical History: Reports Anemia of Chronic Kidney Disease Past Surgical History Past Surgical History: Reports: Appendectomy, Cardiac Catheterization - 3, Cholecystectomy, Dialysis Access Surgery AVG, Dialysis Access Surgery PD, Hysterectomy, Orthopedic Surgery - RIGHT ANKLE SURGERY 01/2011, shoulder surgery 12/2106, Vascular Surgery - port a cath R upper chest Social History Information Source: Patient, [facility] Records Lives with: Family - and daughter Smoking Status: Never Smoker Frequency of Alcohol Use: None Hx Recreational Drug Use: No Drugs: None Hx Prescription Drug Abuse: No Family History Family History: CAD - Mother, Chronic Kidney Disease - Cough seen, DM - Parents, Hypertension - Parents Parental Family History Reviewed: Yes Children Family History Reviewed: Yes Sibling(s) Family History Reviewed.: Yes Medication/Allergy Home Medications: Amoxicillin Trihydrate [Amoxil 500 mg Capsule] 1,000 mg PO Q12 06/02/18 Aripiprazole [Abilify 15 mg Tablet] 15 mg PO DAILY 06/02/18 Bismuth Subsalicylate [Pepto-Bismol] 262 mg PO BID 06/02/18 Calcitriol 1 mcg PO DAILY 06/02/18 Clarithromycin [Biaxin 500 mg Tablet] 500 mg PO Q12 06/02/18 Clonidine HCl [Catapres 0.3 mg Tablet] 0.3 mg PO TID 06/02/18 Divalproex Sodium [Depakote ER 500 mg Tab.sr] 500 mg PO BID 06/02/18 Escitalopram Oxalate [Lexapro] 40 mg PO DAILY 06/02/18 Eszopiclone [Lunesta] 3 mg PO QHS 06/02/18 Furosemide [Lasix 40 mg Tablet] 40 mg PO DAILY 06/02/18 Gabapentin [Neurontin 100 mg Capsule] 100 mg PO DAILY 06/02/18 Hydromorphone HCl [Dilaudid] 4 mg PO QID 06/02/18 Lisinopril [Zestril] 10 mg PO BID 06/02/18 Metoclopramide HCl [Reglan 10 mg Tablet] 10 mg PO ACHS 06/02/18 Pantoprazole Sodium [Protonix] 40 mg PO BID 06/02/18 Polyethylene Glycol 3350 [Miralax Powder 17 gm/Packet] 17 mg PO DAILY 06/02/18 Promethazine HCl [Phenergan 25 mg Tablet] 50 mg PO QIDP PRN 06/02/18 Docusate Sodium [Colace] 200 mg PO BID PRN 30 Days #60 capsule 06/08/18 Hydralazine HCl [Apresoline 50 mg Tablet] 50 mg PO Q12 30 Days #60 tablet 06/08/18 Butalb/Acetaminophen/Caffeine [Fioricet (50-325-40 mg) Tablet] 1 tab PO Q4HP PRN #10 tab 12/03/19 Lidocaine [Lidoderm 5% (700 mg) Transdermal Patch] 1 patch TP DAILY #7 adh..patch 12/11/19 Acetaminophen [Mapap] 650 mg PO Q6HP PRN #20 tablet 12/26/19 Methocarbamol [Robaxin 500 mg Tablet] 500 mg PO TIDP PRN #6 tablet 12/26/19 Divalproex Sodium [Depakote] 500 mg PO BID #4 tablet. 01/13/20 Allergies/Adverse Reactions: codeine [Codeine] Allergy (Mild, Verified 03/19/20 10:08) Itching ketorolac tromethamine [From Toradol] Allergy (Unknown, Verified 03/19/20 10:08) Anxiety nalbuphine HCl [From Nubain] Allergy (Unknown, Verified 03/19/20 10:08) Anxiety ondansetron HCl [From Zofran] Allergy (Unknown, Verified 03/19/20 10:08) Itching droperidol [Droperidol] Allergy (Verified 03/19/20 10:08) reports heart racing, doesn't like how it makes her feel prochlorperazine [From Compazine] Allergy (Verified 04/07/20 20:27) Review of Systems All systems: reviewed and no additional remarkable complaints except as stated Review of Systems: Constitutional: ABSENT: chills, fatigue, fever(s), weight gain, weight loss; admits headache Eyes: ABSENT: visual disturbances Ears: ABSENT: hearing changes Cardiovascular: ABSENT: chest pain, dyspnea on exertion, edema, orthropnea, palpitations Respiratory: ABSENT: Hemoptysis; admits cough and shortness of breath Gastrointestinal: ABSENT: abdominal pain, constipation, diarrhea, hematemesis, hematochezia, nausea, vomiting Genitourinary: ABSENT: dysuria, hematuria Musculoskeletal: ABSENT: joint swelling Integumentary: ABSENT: rash, wounds Neurological: ABSENT: abnormal gait, abnormal speech, confusion, dizziness, focal weakness, numbness; reports syncope Psychiatric: ABSENT: anxiety, depression Endocrine: ABSENT: cold intolerance, heat intolerance, polydipsia, polyuria Hematologic/Lymphatic: ABSENT: easy bleeding, easy bruising, lymphadenopathy Physical Exam Vital Signs: Temp Pulse Resp BP Pulse Ox 97.9 F 87 14 142/89 H 99 04/08/20 10:31 04/07/20 08:09 04/08/20 10:31 04/08/20 10:31 04/08/20 10:31 Intake & Output 04/07/20 04/08/20 04/09/20 06:59 06:59 06:59 Weight 102 kg Vitals during dialysis: Blood pressure 135/78, heart rate of 70, oxygen saturation 100% on room air, blood flow rate of 450 mL/min and dialysate flow rate of 800 mL/min. Exam: General appearance: No acute distress, cooperative, well-developed, well- nourished Head exam: PRESENT: atraumatic, normocephalic Eye exam: PRESENT: Conjunctiva [place], EOMI, PERRLA. ABSENT: conjunctival injection, scleral icterus Mouth exam: PRESENT: moist, neck supple, tongue midline Neck exam: PRESENT: full ROM. ABSENT: carotid bruit, JVD, lymphadenopathy, thyromegaly Respiratory exam: PRESENT: clear to auscultation bilaterally. ABSENT: rales, rhonchi, stridor, wheezes Cardiovascular exam: PRESENT: RRR, +S1, +S2. ABSENT: systolic murmur Pulses: PRESENT: normal radial pulses, normal dorsalis pedis pulses GI/Abdominal exam: PRESENT: normal bowel sounds, soft. ABSENT: guarding, mass, tenderness Rectal exam: Deferred Extremities exam: PRESENT: full ROM. ABSENT: calf tenderness, pedal edema Musculoskeletal: PRESENT: full ROM. ABSENT: deformity Neurological exam: PRESENT: alert, Awake, Oriented to person, Oriented to place, Oriented to time, reflexes normal, CN II-XII grossly intact. ABSENT: motor sensory deficit Psychiatric exam: PRESENT: appropriate affect, normal mood. ABSENT: homicidal ideation, suicidal ideation Skin exam: PRESENT: intact, dry, warm. ABSENT: rash Results Laboratory Results: 04/08/20 00:02 04/08/20 01:25 04/08/20 04/08/20 04/08/20 00:02 00:02 01:25 WBC 8.1 RBC 3.45 L Hgb 10.2 L Hct 31.5 L MCV 91 MCH 29.5 MCHC 32.4 RDW 15.3 H Plt Count 202 Seg Neutrophils % 64.9 Sodium Cancelled 140.4 Potassium Cancelled 3.8 Chloride Cancelled 104 Carbon Dioxide Cancelled 25 Anion Gap Cancelled 11 BUN Cancelled 78 H Creatinine Cancelled 6.06 H Est GFR ( Amer) Cancelled 9 L Est GFR (Non-Af Amer) Cancelled Glucose Cancelled 134 H Calcium Cancelled 7.2 L Magnesium Cancelled 2.1 Total Bilirubin Cancelled 0.7 AST Cancelled 23 Alkaline Phosphatase Cancelled 144 H Total Protein Cancelled 6.6 Albumin Cancelled 3.6 04/08/20 00:02 Troponin I 0.013 Impressions: Chest X-Ray 04/07/20 20:20 IMPRESSION: No acute finding. copyright 2010 [employer]- All Rights Reserved Cervical Spine CT 04/07/20 20:21 IMPRESSION: Possible prevertebral soft tissue swelling. No fracture or dislocation. Head CT 04/07/20 20:21 IMPRESSION: No skull fracture. No intracranial bleed. Lumbar Spine X-Ray 04/07/20 20:21 IMPRESSION: 1. Normal lumbar spine. Thoracic Spine X-Ray 04/07/20 20:21 IMPRESSION: No osseous anomaly. Assessment & Plan - Diagnosis (1) End stage renal disease on dialysis Is this a current diagnosis for this admission?: Yes Plan: We will do dialysis today for 3 hours, using the patient's right AV graft, with 3 calcium with 3 potassium bath, blood flow rate of 450 mL per minute, dialysate flow rate of 800 mL per minute, ultrafiltration 4 to 5 L as tolerated, no heparin and no Procrit during dialysis. Patient is monitored on dialysis. We will attempt to do ultrafiltration to put the patient on her dry weight as tolerated. We will continue to monitor oxygenation while on dialysis. (2) Syncope Qualifiers: Syncope type: unspecified Qualified Code(s): R55 - Syncope and collapse Is this a current diagnosis for this admission?: Yes Plan: Head CT was negative. Currently neurologically within normal limits. (3) Hypoxia Is this a current diagnosis for this admission?: Yes Plan: Seems to be transient occurring early childhood education specialist today. She is Covid negative. If the hypoxia occurred while the patient could be sleeping in the ED early this morning, could be due to sleep apnea. We will try to get ultrafiltration on dialysis and see if that will sustain improved oxygenation although at this time she is even saturating 100% on room air only. (4) Nausea Is this a current diagnosis for this admission?: Yes Plan: I initially ordered Phenergan but patient preferred Benadryl which will give as needed during dialysis. Patient is allergic to Zofran. (5) Headache Is this a current diagnosis for this admission?: Yes Plan: Head CT is negative. Patient has underlying migraine headache. (6) Anemia in chronic kidney disease, on chronic dialysis Is this a current diagnosis for this admission?: Yes Plan: No need of Retacrit today. (7) Hypertension Is this a current diagnosis for this admission?: Yes Plan: Controlled. - Notes Notes: Thank you very much for this consultation. If the patient continues to be stable overnight I think she can be safely discharged tomorrow unless something comes up.
--- NOTE | 2020-04-08 13:55 | PDOC H&P ---
History of Present Illness Admission Date/PCP: 04/08/20 09:26 JAYLIN LEROY PA-C History of Present Illness: DAREN ROSS is a 54 year old female with a history of fibromyalgia and end-s tage renal disease on hemodialysis who was in her usual state of health when last night, while she was in the kitchen washing some dishes and talking on the telephone, she said she felt her legs get wobbly and then she went down into the floor. She said she hit her head on the cabinets on the way down and then she thinks she passed out for a minute. She does not think she was out for very long because her mom was still on the phone. I asked her several times just to be clear, and it sounds like she did not pass out until she hit the floor, if she passed out at all. She was brought to the ER for evaluation. Her labs are essentially normal for her, with the exception of a calcium is just a little bit low. She has not had any further syncopal events. She is not had any recent changes in her medications. She is not had any chest pain or shortness of breath. No fevers. Her EKG was very unremarkable. She had multiple scans and imaging test to look for fracture and they were all negative. Head CT was also negative for acute stroke. I had to keep waking her up to get her to talk to me, because she had been given Haldol, Benadryl, Phenergan, and Dilaudid in the ER. Past Medical History Cardiac Medical History: Reports: Coronary Artery Disease, Myocardial Infarction - w/o stent, Hyperlipidema, Hypertension Pulmonary Medical History: Reports: Asthma, Sleep Apnea Denies: Bronchitis, Chronic Obstructive Pulmonary Disease (COPD), Pneumonia Neurological Medical History: Reports: Migraine Denies: Seizures Endocrine Medical History: Reports: Diabetes Mellitus Type 2, Obesity Renal/ Medical History: Reports: End Stage Renal Disease, Other - FSGS GI Medical History: Reports: Gastroesophageal Reflux Disease, Other - Diverticulosis and IBS Musculoskeltal Medical History: Reports: Arthritis - right knee, Fibromyalgia Skin Medical History: Denies: Eczema, Psoriasis Psychiatric Medical History: Reports: Depression, Post Traumatic Stress Disorder Hematology: Reports: Anemia Past Surgical History Past Surgical History: Reports: Appendectomy, Cardiac Catheterization - 3, Cholecystectomy, Hysterectomy, Orthopedic Surgery - RIGHT ANKLE SURGERY 01/2011, shoulder surgery 12/2106, Vascular Surgery - port a cath R upper chest Denies: Pacemaker Social History Lives with: Family - and daughter Smoking Status: Never Smoker Frequency of Alcohol Use: None Hx Recreational Drug Use: No Drugs: None Hx Prescription Drug Abuse: No Family History Family History: Reviewed & Not Pertinent, CAD, CVA, Hypertension Parental Family History Reviewed: Yes Children Family History Reviewed: Yes Sibling(s) Family History Reviewed.: Yes Medication/Allergy Home Medications: Amoxicillin Trihydrate [Amoxil 500 mg Capsule] 1,000 mg PO Q12 06/02/18 Aripiprazole [Abilify 15 mg Tablet] 15 mg PO DAILY 06/02/18 Bismuth Subsalicylate [Pepto-Bismol] 262 mg PO BID 06/02/18 Calcitriol 1 mcg PO DAILY 06/02/18 Clarithromycin [Biaxin 500 mg Tablet] 500 mg PO Q12 06/02/18 Clonidine HCl [Catapres 0.3 mg Tablet] 0.3 mg PO TID 06/02/18 Divalproex Sodium [Depakote ER 500 mg Tab.sr] 500 mg PO BID 06/02/18 Escitalopram Oxalate [Lexapro] 40 mg PO DAILY 06/02/18 Eszopiclone [Lunesta] 3 mg PO QHS 06/02/18 Furosemide [Lasix 40 mg Tablet] 40 mg PO DAILY 06/02/18 Gabapentin [Neurontin 100 mg Capsule] 100 mg PO DAILY 06/02/18 Hydromorphone HCl [Dilaudid] 4 mg PO QID 06/02/18 Lisinopril [Zestril] 10 mg PO BID 06/02/18 Metoclopramide HCl [Reglan 10 mg Tablet] 10 mg PO ACHS 06/02/18 Pantoprazole Sodium [Protonix] 40 mg PO BID 06/02/18 Polyethylene Glycol 3350 [Miralax Powder 17 gm/Packet] 17 mg PO DAILY 06/02/18 Promethazine HCl [Phenergan 25 mg Tablet] 50 mg PO QIDP PRN 06/02/18 Docusate Sodium [Colace] 200 mg PO BID PRN 30 Days #60 capsule 06/08/18 Hydralazine HCl [Apresoline 50 mg Tablet] 50 mg PO Q12 30 Days #60 tablet 06/08/18 Butalb/Acetaminophen/Caffeine [Fioricet (50-325-40 mg) Tablet] 1 tab PO Q4HP PRN #10 tab 12/03/19 Lidocaine [Lidoderm 5% (700 mg) Transdermal Patch] 1 patch TP DAILY #7 adh..patch 12/11/19 Acetaminophen [Mapap] 650 mg PO Q6HP PRN #20 tablet 12/26/19 Methocarbamol [Robaxin 500 mg Tablet] 500 mg PO TIDP PRN #6 tablet 12/26/19 Divalproex Sodium [Depakote] 500 mg PO BID #4 tablet. 01/13/20 Allergies/Adverse Reactions: codeine [Codeine] Allergy (Mild, Verified 03/19/20 10:08) Itching ketorolac tromethamine [From Toradol] Allergy (Unknown, Verified 03/19/20 10:08) Anxiety nalbuphine HCl [From Nubain] Allergy (Unknown, Verified 03/19/20 10:08) Anxiety ondansetron HCl [From Zofran] Allergy (Unknown, Verified 03/19/20 10:08) Itching droperidol [Droperidol] Allergy (Verified 03/19/20 10:08) reports heart racing, doesn't like how it makes her feel prochlorperazine [From Compazine] Allergy (Verified 04/07/20 20:27) Review of Systems All systems: reviewed and no additional remarkable complaints except as stated - All systems were reviewed and were negative except as noted in the HPI Physical Exam Vital Signs: Temp Pulse Resp BP Pulse Ox 97.9 F 87 14 142/89 H 99 04/08/20 10:31 04/07/20 08:09 04/08/20 10:31 04/08/20 10:31 04/08/20 10:31 Intake & Output 04/07/20 04/08/20 04/09/20 06:59 06:59 06:59 Weight 102 kg General appearance: PRESENT: no acute distress, cooperative, disheveled, mo rbidly obese Head exam: PRESENT: atraumatic, normocephalic Eye exam: PRESENT: EOMI, PERRLA. ABSENT: conjunctival injection, nystagmus, scleral icterus Ear exam: PRESENT: normal external ear exam Mouth exam: PRESENT: dry mucosa, neck supple Neck exam: PRESENT: full ROM. ABSENT: carotid bruit, JVD, lymphadenopathy, meningismus, tenderness, thyromegaly Respiratory exam: PRESENT: clear to auscultation salazar, symmetrical, unlabored. ABSENT: accessory muscle use, chest wall tenderness, crackles, prolonged expiratory phas, rhonchi, tachypnea, wheezes Cardiovascular exam: PRESENT: RRR, +S1, +S2. ABSENT: diastolic murmur, systolic murmur Pulses: PRESENT: normal carotid pulses Vascular exam: PRESENT: normal capillary refill GI/Abdominal exam: PRESENT: normal bowel sounds, soft. ABSENT: distended, guarding, rebound, tenderness Extremities exam: ABSENT: clubbing, pedal edema Musculoskeletal exam: PRESENT: normal inspection. ABSENT: deformity Neurological exam: PRESENT: awake, oriented to person, oriented to place, oriented to situation, CN II-XII grossly intact. ABSENT: motor sensory deficit Psychiatric exam: PRESENT: flat affect Skin exam: PRESENT: dry, warm Results Laboratory Results: 04/08/20 00:02 04/08/20 01:25 04/08/20 04/08/20 04/08/20 00:02 00:02 01:25 WBC 8.1 RBC 3.45 L Hgb 10.2 L Hct 31.5 L MCV 91 MCH 29.5 MCHC 32.4 RDW 15.3 H Plt Count 202 Seg Neutrophils % 64.9 Sodium Cancelled 140.4 Potassium Cancelled 3.8 Chloride Cancelled 104 Carbon Dioxide Cancelled 25 Anion Gap Cancelled 11 BUN Cancelled 78 H Creatinine Cancelled 6.06 H Est GFR ( Amer) Cancelled 9 L Est GFR (Non-Af Amer) Cancelled Glucose Cancelled 134 H Calcium Cancelled 7.2 L Magnesium Cancelled 2.1 Total Bilirubin Cancelled 0.7 AST Cancelled 23 Alkaline Phosphatase Cancelled 144 H Total Protein Cancelled 6.6 Albumin Cancelled 3.6 04/08/20 00:02 Troponin I 0.013 Impressions: Chest X-Ray 04/07/20 20:20 IMPRESSION: No acute finding. copyright 2011 [employer]- All Rights Reserved Cervical Spine CT 04/07/20 20:21 IMPRESSION: Possible prevertebral soft tissue swelling. No fracture or dislocation. Head CT 04/07/20 20:21 IMPRESSION: No skull fracture. No intracranial bleed. Lumbar Spine X-Ray 04/07/20 20:21 IMPRESSION: 1. Normal lumbar spine. Thoracic Spine X-Ray 04/07/20 20:21 IMPRESSION: No osseous anomaly. Assessment and Plan - Diagnosis (1) Syncope Qualifiers: Syncope type: unspecified Qualified Code(s): R55 - Syncope and collapse Is this a current diagnosis for this admission?: Yes (2) Anemia in chronic kidney disease, on chronic dialysis Is this a current diagnosis for this admission?: Yes (3) End stage renal disease on dialysis Is this a current diagnosis for this admission?: Yes (4) Fibromyalgia Is this a current diagnosis for this admission?: Yes (5) Obesity (BMI 30-39.9) Is this a current diagnosis for this admission?: Yes - Plan Summary Summary: I do not know if this was an actual syncopal event, versus her legs gave out from under and she fell and hit her head. She shows no ill effects from hitting her head. No evidence of any fractures. No further syncopal events after she was found by EMS. EKG was completely normal with a sinus rhythm and normal intervals. Plan is to continue her home medications, check orthostatic vital signs, keep her on telemetry, get an echocardiogram, and observe. If everything is unremarkable we will plan to discharge home in the morning, possibly with outpatient follow-up for a Holter monitor. - Time Time Spent with patient: 35 or more minutes Anticipated Discharge Disposition: Home, Self Care Anticipated Discharge Timeframe: within 24 hours
[2020-04-08] MEDS: HEPARIN SOD (PORCINE) 5,000 UNIT/ML 1 ML VIAL SUBCUT SCH ×2 (15:50→22:09)
[2020-04-08] MEDS ORDERED: ACETAMINOPHEN 325 MG TABLET ONE (15:57)
[2020-04-08] MEDS: ACETAMINOPHEN 325 MG TABLET PO PRN (16:06)
[2020-04-08] MEDS ORDERED: PROMETHAZINE HCL 25 MG TABLET PO PRN (18:16)
--- NOTE | 2020-04-08 21:35 | XCELERA REPORT ---
[address] [address] Transthoracic Echocardiogram Report Name: DAREN ROSS Age: 54 yrs Gender: Female : 1965 Patient Status: Inpatient Patient Location: [address] [place] [address] Study Date: 04/08/2020 06:06 PM Height: 63 in Weight: 224 lb BSA: 2.0 m2 Procedure: A complete two-dimensional transthoracic echocardiogram was performed (2D, M-mode, spectral and color flow Doppler). The study was technically limited with all images being suboptimal in quality. Images from the parasternal window were difficult to obtain and are suboptimal in quality. The subcostal views were difficult to obtain and are suboptimal in quality. The apical views were difficult to obtain and are suboptimal in quality. Reason For Study: syncope Ordering Physician: YAYO BRIGHT Performed By: Reyna Desai Interpretation Summary The left ventricle is grossly normal size. There is borderline concentric left ventricular hypertrophy. The left ventricle is hyperdynamic. The Ejection Fraction estimate is 65-70%. Doppler measurements suggest impaired left ventricular relaxation, which is associated with grade I/IV or mild diastolic dysfunction. Regional wall motion abnormalities cannot be excluded due to limited visualization. Borderline RVE. Trace MR, trace TR, trace PI. Minimal anterior pericardial effusion. When compared to a prior study dated Apr 18: -Diastolic function is now Grade I. MMode/2D Measurements & Calculations RVDd: 2.0 cm LVIDd: 4.0 cm FS: 29.5 % Ao root diam: 2.7 cm IVSd: 1.2 cm LVIDs: 2.8 cm EDV(Teich): Ao root area: 69.8 ml LVPWd: 0.87 cm 5.6 cm2 ESV(Teich): LA dimension: 2.5 cm 30.0 ml EF(Teich): 57.1 % LVLd ap4: 6.0 cm SV(MOD-sp4): EDV(MOD-sp4): 46.0 ml 70.0 ml LVLs ap4: 5.0 cm ESV(MOD-sp4): 24.0 ml EF(MOD-sp4): 65.7 % Doppler Measurements & Calculations MV E max ankita: MV P1/2t max ankita: Ao V2 max: LV V1 max P.6 cm/sec 66.2 cm/sec 130.9 cm/sec 3.7 mmHg MV A max ankita: MV P1/2t: 65.6 msec Ao max P.8 mmHg LV V1 max: 74.8 cm/sec 96.4 cm/sec MVA(P1/2t): 3.4 cm2 MV E/A: 0.72 MV dec slope: 295.9 cm/sec2 MV dec time: 0.18 sec PA V2 max: PI end-d ankita: MV P1/2t-pr_phl: 151.5 cm/sec 79.1 cm/sec 65.6 msec PA max P.2 mmHg Left Ventricle The left ventricle is grossly normal size. There is borderline concentric left ventricular hypertrophy. The left ventricle is hyperdynamic. The Ejection Fraction estimate is 65-70%. Doppler measurements suggest impaired left ventricular relaxation, which is associated with grade I/IV or mild diastolic dysfunction. Regional wall motion abnormalities cannot be excluded due to limited visualization. Right Ventricle Borderline right ventricular enlargement. The right ventricular systolic function is normal. Atria The right atrium is normal. The left atrial size is normal. Not well visualized. Mitral Valve The mitral valve is grossly normal. There is no mitral valve stenosis. There is a trace amount of mitral regurgitation. Aortic Valve The aortic valve is not well visualized secondary to technical limitations. There is no aortic valve stenosis. No aortic regurgitation is present. Tricuspid Valve The tricuspid valve is not well visualized, but is grossly normal. There is no tricuspid valve prolapse. There is no tricuspid stenosis. There is a trace amount of tricuspid regurgitation. Pulmonic Valve The pulmonic valve is not well visualized. There is no pulmonic valvular stenosis. There is a trace amount of pulmonic regurgitation. Effusions Minimal pericardial effusion. There is no pleural effusion. : YAYO BRIGHT Antonio
[2020-04-08] MEDS ORDERED: ZOLPIDEM TARTRATE 5 MG TABLET PO SCH (22:00)
[2020-04-08] MEDS ORDERED: (PENDING PHARMACY ID) (Zolpidem Tartrate [Ambien] 10 MG Tablet) PO SCH (22:00)
[2020-04-08] MEDS: METHOCARBAMOL 750 MG TABLET PO SCH (22:11)
[2020-04-08] MEDS: CLONAZEPAM 1 MG TABLET PO SCH (22:11)
[2020-04-08] MEDS: DULOXETINE HCL 30 MG CAPSULE.DR PO SCH (22:12)
[2020-04-09] MEDS: ACETAMINOPHEN 325 MG TABLET PO PRN (03:53)
[2020-04-09] MEDS: HEPARIN SOD (PORCINE) 5,000 UNIT/ML 1 ML VIAL SUBCUT SCH (05:56)
[2020-04-09] MEDS: CLONAZEPAM 1 MG TABLET PO SCH (05:57)
[2020-04-09] MEDS: METHOCARBAMOL 750 MG TABLET PO SCH (05:57)
[2020-04-09 06:29] LABS: ANION GAP 13 (5-19); BLOOD UREA NITROGEN 59 mg/dL (7-20); CALCIUM 8.8 mg/dL (8.4-10.2); CARBON DIOXIDE 26 mmol/L (22-30); CHLORIDE 98 mmol/L (98-107); GLUCOSE 220 mg/dL (75-110); POTASSIUM 3.9 mmol/L (3.6-5.0)
[2020-04-09] MEDS ORDERED: CALCIUM ACETATE 667 MG CAPSULE PO SCH (08:00)
[2020-04-09 08:43] VITALS: BP 116/81
[2020-04-09] MEDS: DULOXETINE HCL 30 MG CAPSULE.DR PO SCH (09:14)
[2020-04-09] MEDS ORDERED: LAMOTRIGINE 25 MG PO SCH (10:00)
[2020-04-09] MEDS ORDERED: LAMOTRIGINE 25 MG TAB.CHEW PO SCH (10:00)
[2020-04-09] MEDS ORDERED: METOPROLOL SUCCINATE 50 MG TAB.SR.24H PO SCH (10:00)
[2020-04-09] MEDS ORDERED: (PENDING PHARMACY ID) (Duloxetine Hcl [Cymbalta] 60 MG Capsule.Dr) PO SCH (10:00)
[2020-04-09] MEDS ORDERED: CALCIUM ACETATE 667 MG PO SCH (10:00)
[2020-04-09] MEDS ORDERED: PREGABALIN 25 MG CAPSULE PO SCH (10:00)
--- NOTE | 2020-04-09 15:51 | PDOC DISCHARGE SUMMARY ---
Impression - Admit/DC Date/PCP Admission Date/Primary Care Provider: 04/08/20 09:26 JAYLIN LEROY PA-C Discharge Date: 04/09/20 - Discharge Diagnosis (1) Syncope Is this a current diagnosis for this admission?: Yes (2) Anemia in chronic kidney disease, on chronic dialysis Is this a current diagnosis for this admission?: Yes (3) End stage renal disease on dialysis Is this a current diagnosis for this admission?: Yes (4) Fibromyalgia Is this a current diagnosis for this admission?: Yes (5) Obesity (BMI 30-39.9) Is this a current diagnosis for this admission?: Yes - Assessment Summary: I do not know if this was an actual syncopal event, versus her legs gave out from under and she fell and hit her head. She shows no ill effects from hitting her head. No evidence of any fractures. No further syncopal events after she was found by EMS. EKG was completely normal with a sinus rhythm and normal intervals. Plan is to continue her home medications, check orthostatic vital signs, keep her on telemetry, get an echocardiogram, and observe. If everything is unremarkable we will plan to discharge home in the morning, possibly with outpatient follow-up for a Holter monitor. - Additional Information Resuscitation Status: Full Code Discharge Diet: Cardiac Discharge Activity: Activity As Tolerated Referrals: JAYLIN LEROY PA-C [Primary Care Provider] - 04/09/20 11:50 am (04/09/20 1150 [facility] OFFICE WILL CONTACT PT WITH FOLLOW UP APT.) NILSON MARSHALL MD [ACTIVE PROVISIONAL STAFF] - 04/09/20 11:45 am (1 week for Holter monitor 04/09/20 1145 [facility] OFFICE WILL CONTACT PT WITH FOLLOW UP APT.) Home Medications: Calcium Acetate 667 mg PO TID 04/08/20 Clonazepam [Klonopin 1 mg Tablet] 1 mg PO TID 04/08/20 Duloxetine HCl [Cymbalta] 60 mg PO BID 04/08/20 Fluticasone Propionate [Flonase Allergy Relief] 1 spray NS DAILY 04/08/20 Lamotrigine [Lamictal] 25 mg PO DAILY 04/08/20 Methocarbamol [Robaxin 750 mg Tablet] 750 mg PO TID 04/08/20 Metoprolol Succinate [Toprol Xl 50 mg Tab.sr] 50 mg PO DAILY 04/08/20 Pregabalin [Lyrica 25 mg Capsule] 25 mg PO DAILY 04/08/20 Promethazine HCl [Phenergan 25 mg Tablet] 25 mg PO Q6HP PRN 04/08/20 Rizatriptan Benzoate [Rizatriptan] 10 mg PO ASDIR PRN 04/08/20 Zolpidem Tartrate [Ambien] 10 mg PO QHS 04/08/20 History of Present Illiness History of Present Illness: DAREN ROSS is a 54 year old female with a history of fibromyalgia and end-stage renal disease on hemodialysis who was in her usual state of health when last night, while she was in the kitchen washing some dishes and talking on the telephone, she said she felt her legs get wobbly and then she went down into the floor. She said she hit her head on the cabinets on the way down and then she thinks she passed out for a minute. She does not think she was out for very long because her mom was still on the phone. I asked her several times just to be clear, and it sounds like she did not pass out until she hit the floor, if she passed out at all. She was brought to the ER for evaluation. Her labs are essentially normal for her, with the exception of a calcium is just a little bit low. She has not had any further syncopal events. She is not had any recent changes in her medications. She is not had any chest pain or shortness of breath. No fevers. Her EKG was very unremarkable. She had multiple scans and imaging test to look for fracture and they were all negative. Head CT was also negative for acute stroke. I had to keep waking her up to get her to talk to me, because she had been given Haldol, Benadryl, Phenergan, and Dilaudid in the ER. Hospital Course Hospital Course: No events on telemetry. No more syncopal episodes. Patient Asking for narcotics. Echocardiogram was fairly unremarkable, only significant for grade 1 diastolic dysfunction and a borderline enlarged right ventricle. She has a history of obstructive sleep apnea and was supposed to be on CPAP at home, and I encouraged her to use her CPAP machine as directed to help lower the risk of developing pulmonary hypertension, which she may already have. She received a scheduled dialysis treatment yesterday. She will resume her typical schedule at her next appointment. She was given an appointment with Dr. Marshall to set up an outpatient Holter monitor. Her labs and examination were reassuring and she was discharged in stable condition. Physical Exam Vital Signs: Temp Pulse Resp BP Pulse Ox 98.0 F 109 H 18 116/81 97 04/09/20 12:01 04/09/20 12:01 04/09/20 12:01 04/09/20 12:01 04/09/20 12:01 Intake & Output 04/08/20 04/09/20 04/10/20 06:59 06:59 06:59 Intake Total 601 Output Total 4300 Balance -3699 Weight 102 kg 110.9 kg 110.9 kg General appearance: PRESENT: no acute distress, cooperative, disheveled, morbidly obese Respiratory exam: PRESENT: clear to auscultation salazar, symmetrical, unlabored. ABSENT: accessory muscle use, chest wall tenderness, crackles, prolonged expiratory phas, rhonchi, tachypnea, wheezes Cardiovascular exam: PRESENT: RRR, +S1, +S2. ABSENT: diastolic murmur, systolic murmur Pulses: PRESENT: normal carotid pulses Vascular exam: PRESENT: normal capillary refill GI/Abdominal exam: PRESENT: normal bowel sounds, soft. ABSENT: distended, guarding, rebound, tenderness Extremities exam: ABSENT: clubbing, pedal edema Musculoskeletal exam: PRESENT: normal inspection. ABSENT: deformity Neurological exam: PRESENT: awake, oriented to person, oriented to place, anil ented to situation Psychiatric exam: PRESENT: flat affect Skin exam: PRESENT: dry, warm Results Laboratory Results: WBC 8.1 10^3/uL (4.0-10.5) 04/08/20 00:02 RBC 3.45 10^6/uL (3.72-5.28) L 04/08/20 00:02 Hgb 10.2 g/dL (12.0-15.5) L 04/08/20 00:02 Hct 31.5 % (36.0-47.0) L 04/08/20 00:02 MCV 91 fl (80-97) 04/08/20 00:02 MCH 29.5 pg (27.0-33.4) 04/08/20 00:02 MCHC 32.4 g/dL (32.0-36.0) 04/08/20 00:02 RDW 15.3 % (11.5-14.0) H 04/08/20 00:02 Plt Count 202 10^3/uL (150-450) 04/08/20 00:02 Lymph % (Auto) 22.7 % (13-45) 04/08/20 00:02 [place] % (Auto) 10.5 % (3-13) 04/08/20 00:02 Eos % (Auto) 1.0 % (0-6) 04/08/20 00:02 Baso % (Auto) 0.9 % (0-2) 04/08/20 00:02 Absolute Neuts (auto) 5.2 10^3/uL (1.7-8.2) 04/08/20 00:02 Absolute Lymphs (auto) 1.8 10^3/uL (0.5-4.7) 04/08/20 00:02 Absolute Monos (auto) 0.9 10^3/uL (0.1-1.4) 04/08/20 00:02 Absolute Eos (auto) 0.1 10^3/uL (0.0-0.6) 04/08/20 00:02 Absolute Basos (auto) 0.1 10^3/uL (0.0-0.2) 04/08/20 00:02 Seg Neutrophils % 64.9 % (42-78) 04/08/20 00:02 Sodium 137.2 mmol/L (137-145) 04/09/20 05:53 Potassium 3.9 mmol/L (3.6-5.0) 04/09/20 05:53 Chloride 98 mmol/L (98-107) 04/09/20 05:53 Carbon Dioxide 26 mmol/L (22-30) 04/09/20 05:53 Anion Gap 13 (5-19) 04/09/20 05:53 BUN 59 mg/dL (7-20) H 04/09/20 05:53 Creatinine 5.13 mg/dL (0.52-1.25) H 04/09/20 05:53 Est GFR ( Amer) 11 (>60) L 04/09/20 05:53 Est GFR (Non-Af Amer) Cancelled 04/08/20 00:02 Est GFR (MDRD) Non-Af 9 (>60) L 04/09/20 05:53 Glucose 220 mg/dL (75-110) H 04/09/20 05:53 Calcium 8.8 mg/dL (8.4-10.2) 04/09/20 05:53 Magnesium 2.1 mg/dL (1.6-2.3) 04/08/20 01:25 Total Bilirubin 0.7 mg/dL (0.2-1.3) 04/08/20 01:25 Direct Bilirubin 0.6 mg/dL (0.0-0.4) H 04/08/20 01:25 Neonat Total Bilirubin Not Reportable 04/08/20 01:25 Neonat Direct Bilirubin Not Reportable 04/08/20 01:25 Neonat Indirect Bili Not Reportable 04/08/20 01:25 AST 23 U/L (14-36) 04/08/20 01:25 ALT 28 U/L (<35) 04/08/20 01:25 Alkaline Phosphatase 144 U/L (38-126) H 04/08/20 01:25 Troponin I 0.013 ng/mL 04/08/20 00:02 Total Protein 6.6 g/dL (6.3-8.2) 04/08/20 01:25 Albumin 3.6 g/dL (3.5-5.0) 04/08/20 01:25 EGFR Cancelled 04/08/20 00:02 Influenza A (RT-PCR) NEGATIVE (NEGATIVE) 04/08/20 08:20 Influenza B (RT-PCR) NEGATIVE (NEGATIVE) 04/08/20 08:20 RSV (RT-PCR) NEGATIVE (NEGATIVE) 04/08/20 08:20 SARS-CoV-2 Rap RNA(RT-PCR) NEGATIVE (NEGATIVE) 04/08/20 08:20 04/08/20 00:02 Troponin I 0.013 Impressions: Chest X-Ray 04/07/20 20:20 IMPRESSION: No acute finding. copyright 2011 [employer]- All Rights Reserved Cervical Spine CT 04/07/20 20:21 IMPRESSION: Possible prevertebral soft tissue swelling. No fracture or dislocation. Head CT 04/07/20 20:21 IMPRESSION: No skull fracture. No intracranial bleed. Lumbar Spine X-Ray 04/07/20 20:21 IMPRESSION: 1. Normal lumbar spine. Thoracic Spine X-Ray 04/07/20 20:21 IMPRESSION: No osseous anomaly. Plan Time Spent: Greater than 30 Minutes Stroke Is this a Stroke Patient?: No Acute Heart Failure Is this a Heart Failure Patient?: No
== END 2020-04-09 12:32 | disposition home or self-care (01) ==
LOC: ER 19:42 → EH 04-08 09:26 → 5 04-08 11:17
PROVIDERS: ADMIT Family Medicine; ATTEND Family Medicine
DX: R55 Syncope and collapse (principal); I12.0 Hypertensive chronic kidney disease with stage 5 chronic kidney disease or end stage renal disease; N18.6 End stage renal disease; D63.1 Anemia in chronic kidney disease; M79.7 Fibromyalgia; E66.01 Morbid (severe) obesity due to excess calories; Z68.39 Body mass index [BMI] 39.0-39.9, adult; I51.89 Other ill-defined heart diseases; R09.02 Hypoxemia; R06.02 Shortness of breath; R05 Cough; J02.9 Acute pharyngitis, unspecified; G47.33 Obstructive sleep apnea (adult) (pediatric); R11.0 Nausea; Z99.2 Dependence on renal dialysis; Z91.19 Patient's noncompliance with other medical treatment and regimen; G43.909 Migraine, unspecified, not intractable, without status migrainosus; M54.2 Cervicalgia; M54.9 Dorsalgia, unspecified; W01.198A Fall on same level from slipping, tripping and stumbling with subsequent striking against other object, initial encounter; Y92.000 Kitchen of unspecified non-institutional (private) residence as the place of occurrence of the external cause; R07.9 Chest pain, unspecified; I25.10 Atherosclerotic heart disease of native coronary artery without angina pectoris; I25.2 Old myocardial infarction; Z79.899 Other long term (current) drug therapy; Z20.828 Contact with and (suspected) exposure to other viral communicable diseases; Z90.49 Acquired absence of other specified parts of digestive tract; Z88.8 Allergy status to other drugs, medicaments and biological substances; Z87.19 Personal history of other diseases of the digestive system; Z86.39 Personal history of other endocrine, nutritional and metabolic disease
CPT/HCPCS: 93005; 99285; 96372; 96374; 36415 ×2; 83735; 85025; 0241U ×4; 80048; 80053; 84484; 93306; 71045; 72110; 72070; 70450; 72125; 93010; G0378 ×3; J1644 ×2; J1200; J1630; J3490 ×4; J1170; J2550; J0610; C9803; G0257

== ENCOUNTER 2020-04-12 02:14 | Emergency (ER) | payer MEDICARE, OTHER, MEDICAID ==
--- NOTE | 2020-04-12 03:31 | RADIOLOGY REPORT (SQ) ---
EXAM DESCRIPTION: XR SHOULDER 2 OR MORE VIEWS COMPLETED DATE/TME: 04/12/2020 02:53 CLINICAL HISTORY: 54 years, Female, fell onto shoulder COMPARISON: None. NUMBER OF VIEWS: 3 TECHNIQUE: 3 view right shoulder LIMITATIONS: None. FINDINGS: Osteopenia. Negative for acute fracture or dislocation. Mild degenerative changes of the acromioclavicular and glenohumeral joints. Soft tissues are unremarkable. Endovascular graft projects over the right hemithorax IMPRESSION: Osteopenia with degenerative change copyright 2010 [employer]- All Rights Reserved
[2020-04-12] MEDS ORDERED: PROCHLORPERAZINE EDISYLATE INJ 10 MG/2 ML VIAL IV ONE (06:06)
[2020-04-12] MEDS ORDERED: DIPHENHYDRAMINE HCL 50 MG/ML VIAL IV ONE (06:09)
[2020-04-12] MEDS ORDERED: ACETAMINOPHEN 325 MG TABLET PO ONE (06:15)
--- NOTE | 2020-04-12 06:19 | ER Document Report ---
ED Extremity Problem, Upper - General TRAVEL OUTSIDE OF THE [place] IN LAST 30 DAYS: No - Related Data Home Medications: htn med. ptsd med. calcitrol - General Chief Complaint: Shoulder Injury Stated Complaint: SHOULDER PAIN Time Seen by Provider: 04/12/20 05:53 Primary Care Provider: JAYLIN LEORY PA-C [Primary Care Provider] - Follow up as needed - [facility] Notes: Patient is a 54-year-old female with a hx of renal failure who presents with right shoulder pain after falling yesterday evening. Patient states she felt lightheaded and lost her balance. She states she was caught by someone which broke her fall, however, she still landed on her right shoulder. She reports increased pain to her right shoulder and limited range of motion. She states she has been dealing with episodes of lightheadedness for the past week and was actually seen in the emergency department on 04/07 for it. Patient was admitted and discharged 3 days ago. She was instructed to follow-up with Dr. Marshall, manager planning, for Holter monitor and a further work-up of her lightheadedness. Patient states she talked to Dr. Marshall yesterday and was instructed to call the office back on Wednesday to set up an appointment. Patient reports headache but denies chest pain, shortness of breath, nausea, vomiting, diarrhea. Patient currently gets dialysis and her nephrologists are Dr. Castorena and Dr. Tong. (TEE GUERRA) - Related Data Allergies/Adverse Reactions: codeine [Codeine] Allergy (Mild, Verified 03/19/20 10:08) Itching ketorolac tromethamine [From Toradol] Allergy (Unknown, Verified 03/19/20 10:08) Anxiety nalbuphine HCl [From Nubain] Allergy (Unknown, Verified 03/19/20 10:08) Anxiety ondansetron HCl [From Zofran] Allergy (Unknown, Verified 03/19/20 10:08) Itching droperidol [Droperidol] Allergy (Verified 03/19/20 10:08) reports heart racing, doesn't like how it makes her feel prochlorperazine [From Compazine] Allergy (Verified 04/07/20 20:27) Past Medical History - General Information source: Patient - Social History Smoking Status: Never Smoker Chew tobacco use (# tins/day): No Frequency of alcohol use: None Drug Abuse: None Family History: Reviewed & Not Pertinent, CAD, CVA, Hypertension - Past Medical History Cardiac Medical History: Reports: Hx Coronary Artery Disease, Hx Heart Attack - w/o stent, Hx Hypercholesterolemia, Hx Hypertension Pulmonary Medical History: Reports: Hx Asthma, Hx Sleep Apnea Denies: Hx Bronchitis, Hx COPD, Hx Pneumonia Neurological Medical History: Reports: Hx Migraine. Denies: Hx Cerebrovascular Accident, Hx Seizures Endocrine Medical History: Reports: Hx Diabetes Mellitus Type 2 Renal/ Medical History: Reports: Hx End Stage Renal Disease, Hx Hemodialysis - MWF, Hx Renal Insufficiency. Denies: Hx Peritoneal Dialysis GI Medical History: Reports: Hx Gastroesophageal Reflux Disease, Hx Irritable Bowel Musculoskeletal Medical History: Reports Hx Arthritis - right knee, Reports Hx Fibromyalgia, Reports Hx Musculoskeletal Deformity, Reports Hx Musculoskeletal Trauma Skin Medical History: Denies Hx Eczema, Denies Hx Psoriasis Psychiatric Medical History: Reports: Hx Depression, Hx Post Traumatic Stress Disorder Past Surgical History: Reports: Hx Appendectomy, Hx Cardiac Catheterization - 3, Hx Cholecystectomy, Hx Hysterectomy, Hx Orthopedic Surgery - RIGHT ANKLE SURGERY 01/2011, shoulder surgery 12/2106, Hx Thyroid Surgery, Hx Vascular Surgery - port a cath R upper chest. Denies: Hx Pacemaker - Immunizations Hx Diphtheria, Pertussis, Tetanus Vaccination: Yes - 06/17/17 Hx Pneumococcal Vaccination: 04/19/17 Review of Systems - Review of Systems Constitutional: No symptoms reported EENT: No symptoms reported Cardiovascular: See HPI Respiratory: No symptoms reported Gastrointestinal: No symptoms reported Genitourinary: No symptoms reported Female Genitourinary: No symptoms reported Musculoskeletal: See HPI Skin: No symptoms reported Hematologic/Lymphatic: No symptoms reported Neurological/Psychological: See HPI Physical Exam - Vital signs Vitals: Temp Pulse Resp BP Pulse Ox 98.4 F 95 18 132/77 H 100 04/12/20 02:33 04/12/20 02:33 04/12/20 02:33 04/12/20 02:33 04/12/20 02:33 - Notes Notes: PHYSICAL EXAMINATION: VITALS: Vitals reviewed and within normal limits. GENERAL: Well-appearing, well-nourished and in no acute distress. HEAD: Atraumatic, normocephalic. EYES: Pupils equal, round, and reactive to light, extraocular movements intact, sclera anicteric, conjunctiva are normal. ENT: Nares patent. Moist mucous membranes. Oropharynx clear without exudates. NECK: Normal range of motion, supple without lymphadenopathy. LUNGS: Breath sounds clear to auscultation bilaterally and equal. No wheezes, rales, or rhonchi. HEART: Regular, rate, and rhythm without murmurs. ABDOMEN: Soft, nontender, normoactive bowel sounds. No guarding, no rebound. No masses appreciated. EXTREMITIES: Right shoulder is diffusely tender with limited range of motion secondary to pain. 2+ radial pulse bilaterally. No pitting or edema. No cyanosis. NEUROLOGICAL: No focal neurological deficits. Moves all extremities spontaneously and on command. PSYCH: Normal mood, normal affect. SKIN: Warm, Dry, normal turgor, no rashes or lesions noted. (TEE GUERRA) Course - Laboratory Results Critical Laboratory Results Reviewed: No Critical Results - Radiology Results Critical Radiology Results Reviewed: No Critical Results - Re-evaluation Re-evalutation: Patient is a 54-year-old female who presents status post lightheadedness and fall onto her right shoulder. Patient was recently seen in the ED earlier this week and worked up for episodes of lightheadedness. She was admitted to the hospital for 2 days and was instructed to follow-up with Dr. Marshall, manager planning, for Holter monitor and further evaluation. Vital signs are stable within normal limits. On exam, right shoulder diffusely tender with limited range of motion secondary to pain. I recommended proceeding with lab work, EKG and a chest x-ray to evaluate her episode of lightheadedness that occurred prior to her fall, however, patient has declined all blood work and imaging at this time as she had a full workup a few days ago during her admission. She is requesting Compazine and Benadryl for her headache as this is helped in the past and analgesics for her right shoulder pain. PO Tylenol ordered. Right shoulder XR shows osteopenia with degenerative change. 04/12/20 07:50 Patient is a hard stick and nursing is still working on IV access for the IV medications. I offered PO medications but patient is requesting IV as it is what has worked in the past. 04/12/20 08:00 Patient handoff given to David Ross NP. (TEE GUERRA) 04/12/20 08:51 Report was received on the patient. Patient has declined further work-up for the syncopal episodes. She states her headache is better after medication. She would like to go home. She will follow up with Dr. Marshall on Wednesday (DAVID ROSS) - Vital Signs Vital signs: Temp Pulse Resp BP Pulse Ox 98.4 F 95 18 132/77 H 100 04/12/20 02:33 04/12/20 02:33 04/12/20 02:33 04/12/20 02:33 04/12/20 02:33 - Radiology Results Radiology Results Interpreted: Shoulder X-Ray 04/12/20 00:00 IMPRESSION: Osteopenia with degenerative change copyright 2011 [employer]- All Rights Reserved (TEE GUERRA) Discharge - Discharge Clinical Impression: Lightheadedness Right shoulder pain Qualifiers: Chronicity: acute Qualified Code(s): M25.511 - Pain in right shoulder Headache Qualifiers: Headache type: unspecified Headache chronicity pattern: unspecified pattern Intractability: not intractable Qualified Code(s): R51.9 - Headache, unspecified Condition: Stable Disposition: HOME, SELF-CARE Additional Instructions: Follow-up with Dr. Marshall on Wednesday as previously indicated. Tylenol for shoulder pain. Cool compresses to the shoulder to help with discomfort Referrals: JAYLIN LEROY PA-C [Primary Care Provider] - Follow up as needed
[2020-04-12 09:12] VITALS: BP 122/83
== END 2020-04-12 09:12 | disposition home or self-care (01) ==
LOC: ER 02:14
DX: M25.511 Pain in right shoulder (principal); W19.XXXA Unspecified fall, initial encounter; R51.9 Headache, unspecified; R42 Dizziness and giddiness; M85.811 Other specified disorders of bone density and structure, right shoulder; I12.0 Hypertensive chronic kidney disease with stage 5 chronic kidney disease or end stage renal disease; E11.22 Type 2 diabetes mellitus with diabetic chronic kidney disease; N18.6 End stage renal disease; Z99.2 Dependence on renal dialysis; I25.10 Atherosclerotic heart disease of native coronary artery without angina pectoris; I25.2 Old myocardial infarction; J45.909 Unspecified asthma, uncomplicated; F43.10 Post-traumatic stress disorder, unspecified; Z79.899 Other long term (current) drug therapy; Z95.5 Presence of coronary angioplasty implant and graft; Z88.6 Allergy status to analgesic agent; Z88.5 Allergy status to narcotic agent; Z88.8 Allergy status to other drugs, medicaments and biological substances
CPT/HCPCS: 99284; 96374; 96375; 73030; A9270; J1200; J0780

== ENCOUNTER 2020-04-27 13:12 | Emergency (ER) | payer MEDICARE, OTHER, MEDICAID ==
[2020-04-27] MEDS ORDERED: HYDROCODONE/ACETAMINOPHEN 5-325 MG TABLET PO ONE (13:33)
--- NOTE | 2020-04-27 14:14 | RADIOLOGY REPORT (SQ) ---
EXAM DESCRIPTION: CT HEAD WITHOUT IMAGES COMPLETED DATE/TIME: 04/27/2020 12:49 pm REASON FOR STUDY: 15; fall with closed head injuiryu COMPARISON: 04/07/2020 TECHNIQUE: Axial images acquired through the brain without intravenous contrast. Images reviewed wi th bone, brain and subdural windows. Additional sagittal and coronal reconstructions were generated. Images stored on PACS. All CT scanners at this facility use dose modulation, iterative reconstruction, and/or weight based d osing when appropriate to reduce radiation dose to as low as reasonably achievable (ALARA). [facility]: Dose Right [facility]: CareDose [facility]: Dose Right [facility]: Teradose 4D [facility]: [employer] RADIATION DOSE: CT Rad equipment meets quality standard of care and radiation dose reduction techniq ues were employed. CTDIvol: 53.2 mGy. DLP: 911 mGy-cm. mGy. LIMITATIONS: None. FINDINGS: VENTRICLES: Normal size and contour. CEREBRUM: No masses. No hemorrhage. No midline shift. No evidence for acute infarction. Normal gra y/white matter differentiation. No areas of low density in the white matter. CEREBELLUM: No masses. No hemorrhage. No alteration of density. No evidence for acute infarction. EXTRAAXIAL SPACES: No fluid collections. No masses. ORBITS AND GLOBE: No intra- or extraconal masses. Normal contour of globe without masses. CALVARIUM: No fracture. PARANASAL SINUSES: No fluid or mucosal thickening. SOFT TISSUES: No mass or hematoma. OTHER: No other significant finding. IMPRESSION: NO ACUTE INTRACRANIAL IMAGING FINDINGS. EVIDENCE OF ACUTE STROKE: NO. COMMENT: Quality ID # [id number]: Final reports with documentation of one or more dose reduction techniques (e.g., Automated exposure control, adjustment of the mA and/or kV according to patient size, use of iterative reconstruction technique) TECHNICAL DOCUMENTATION: JOB ID: [id number] 2010 [employer]- All Rights Reserved Reading location - IP/workstation name: [email or web address]
--- NOTE | 2020-04-27 14:17 | ER Document Report ---
ED General - General Stated Complaint: WEAKNESS Time Seen by Provider: 04/27/20 13:15 Primary Care Provider: JAYLIN LEROY PA-C [Primary Care Provider] - Follow up as needed Notes: HPI: 54-year-old female who presents today stating that she has had multiple episodes of feeling lightheaded and dizziness normally after finishing dialysis. She has been seen here and evaluated for syncope in the past including the end of March. She was supposed to follow-up with the gang plank workman but has yet to do so. She states she got her nails done and stood up causing her accidentally fall because her legs "got wobbly". She did not syncopized and denies any and all chest pain, shortness of breath, lightheadedness or dizziness. She denies any focal weakness. She states she did hit the right side of her head and her right shoulder. She had right shoulder pain from a previous fall. She is not on blood thinning medications. She denies any neck pain. She denies any anterior posterior rib pain, midline back pain, pelvis pain, or pain to any other extremity. ROS: See HPI All other review of systems reviewed and otherwise negative Reviewed vital signs and nursing note as charted by RN. PHYSICAL EXAM: CONSTITUTIONAL: Alert and oriented and responds appropriately to questions. Well-appearing; well-nourished HEAD: Normocephalic; atraumatic EYES: PERRL; full extraocular range of motion; no nystagmus ENT: Normal nose; no rhinorrhea; moist mucous membranes; pharynx without lesions noted NECK: Supple without meningismus; non-tender to deep palpation of the midline cervical spine CARD: Regular rate and rhythm; no murmurs; symmetric distal pulses RESP: Normal chest excursion without splinting or tachypnea; breath sounds clear and equal bilaterally; no wheezes, no rhonchi, no rales ABD/GI: Normal bowel sounds; non-distended; soft, non-tender; no palpable organomegaly or masses BACK: The back appears normal and is non-tender to palpation EXT: Tenderness to the right lateral anterior shoulder with no obvious swelling, erythema, malformation. No tenderness to the right humerus, elbow, forearm, wrist, hand. Strong distal pulses with excellent optical element coater strength SKIN: No acute lesions noted NEURO: CN 2-12 intact; 5/5 bilateral upper and lower extremity strength with sensation intact to light touch PSYCH: The patient's mood and manner are appropriate. Grooming and personal hygiene are appropriate. TRAVEL OUTSIDE OF THE [place] IN LAST 30 DAYS: No - Related Data Allergies/Adverse Reactions: codeine [Codeine] Allergy (Mild, Verified 03/19/20 10:08) Itching ketorolac tromethamine [From Toradol] Allergy (Unknown, Verified 03/19/20 10:08) Anxiety nalbuphine HCl [From Nubain] Allergy (Unknown, Verified 03/19/20 10:08) Anxiety ondansetron HCl [From Zofran] Allergy (Unknown, Verified 03/19/20 10:08) Itching droperidol [Droperidol] Allergy (Verified 03/19/20 10:08) reports heart racing, doesn't like how it makes her feel prochlorperazine [From Compazine] Allergy (Verified 04/07/20 20:27) Past Medical History - Social History Smoking Status: Unknown if Ever Smoked Family History: Reviewed & Not Pertinent, CAD, CVA, Hypertension - Past Medical History Cardiac Medical History: Reports: Hx Coronary Artery Disease, Hx Heart Attack - NO INTERVENTION NEEDED 2017, Hx Hypercholesterolemia, Hx Hypertension Pulmonary Medical History: Reports: Hx Asthma - MILD, Hx Sleep Apnea Denies: Hx Bronchitis, Hx COPD, Hx Pneumonia Neurological Medical History: Reports: Hx Migraine. Denies: Hx Cerebrovascular Accident, Hx Seizures Endocrine Medical History: Reports: Hx Diabetes Mellitus Type 2 Renal/ Medical History: Reports: Hx End Stage Renal Disease, Hx Hemodialysis - MWF, Hx Renal Insufficiency. Denies: Hx Peritoneal Dialysis GI Medical History: Reports: Hx Gastroesophageal Reflux Disease, Hx Irritable Bowel Musculoskeletal Medical History: Reports Hx Arthritis, Reports Hx Fibromyalgia, Reports Hx Musculoskeletal Deformity, Reports Hx Musculoskeletal Trauma Skin Medical History: Denies Hx Eczema, Denies Hx Psoriasis Psychiatric Medical History: Reports: Hx Depression, Hx Post Traumatic Stress Disorder Past Surgical History: Reports: Hx Appendectomy, Hx Cardiac Catheterization - 3, Hx Cholecystectomy, Hx Hysterectomy, Hx Orthopedic Surgery - RIGHT ANKLE SURGERY 01/2011, shoulder surgery 12/2106, Hx Thyroid Surgery, Hx Vascular Surgery - port a cath R upper chest. Denies: Hx Pacemaker - Immunizations Hx Diphtheria, Pertussis, Tetanus Vaccination: Yes - 06/17/17 Hx Pneumococcal Vaccination: 04/19/17 Physical Exam - Vital signs Vitals: Resp BP Pulse Ox 14 112/71 100 04/27/20 14:01 04/27/20 14:01 04/27/20 14:01 Course - Re-evaluation Re-evalutation: Given the history and physical examination with frequent falls after being on dialysis for 1 year, previously on peritoneal dialysis, the patient is scheduled to have a peritoneal dialysis catheter placed by general surgery in the next week. Patient denies any and all chest pain, lightheadedness, dizziness, causing the fall. She states her legs just "gave out. No focal logical deficits on repeat exam. EKG shows a heart rate of 99, normal sinus rhythm, normal axis, no ST elevation or depression. Narrow QRS. We will obtain basic labs, hemoglobin level, CT scan the patient's head and x- ray the patient's right shoulder and reassess. I do believe syncope, ACS, PE, dissection to be extremely unlikely at this time. 04/27/20 18:49 Imaging and labs as recorded. Baseline anemia. No change in exam. We will provide a sling to the right arm. Patient will be discharged home with strict return precautions and follow-up with orthopedics as well as will specialist for peritoneal dialysis catheter placement and transition from dialysis to peritoneal dialysis. Strict return precautions have been explained. - Vital Signs Vital signs: Temp Pulse Resp BP Pulse Ox 97.9 F 15 120/79 100 04/27/20 14:18 04/27/20 17:19 04/27/20 17:19 04/27/20 17:19 - Laboratory Results Result Diagrams: 04/27/20 16:55 04/27/20 16:55 Laboratory Results Interpreted: 04/27/20 04/27/20 16:55 16:55 RBC 3.47 L Hgb 9.6 L Hct 29.9 L RDW 15.2 H Plt Count 126 L Boyd % (Auto) 15.5 H Potassium 3.5 L BUN 49 H Creatinine 5.68 H Est GFR ( Amer) 9 L Est GFR (MDRD) Non-Af 8 L Glucose 115 H Critical Laboratory Results Reviewed: No Critical Results - Radiology Results Critical Radiology Results Reviewed: No Critical Results Discharge - Discharge Clinical Impression: Fall Qualifiers: Encounter type: initial encounter Qualified Code(s): W19.XXXA - Unspecified fall, initial encounter Contusion of right shoulder Qualifiers: Encounter type: initial encounter Qualified Code(s): S40.011A - Contusion of right shoulder, initial encounter Closed head injury Qualifiers: Encounter type: initial encounter Qualified Code(s): S09.90XA - Unspecified injury of head, initial encounter Condition: Good Disposition: HOME, SELF-CARE Additional Instructions: Come back immediately for any increased pain, change in location or quality of pain, weakness or numbness, chest pain, repeat episodes, or any other acute problems. Please follow-up with your specialist as well as possibly orthopedics as discussed. Prescriptions: Hydrocodone/Acetaminophen [[place] 5-325 mg Tablet] 1 tab PO Q8 #10 tablet Referrals: JAYLIN LEROY PA-C [Primary Care Provider] - Follow up as needed MAHSA UCNNINGHAM MD [ACTIVE STAFF] - Follow up as needed
--- NOTE | 2020-04-27 14:39 | RADIOLOGY REPORT (SQ) ---
EXAM DESCRIPTION: SHOULDER RIGHT 2 OR MORE VIEWS IMAGES COMPLETED DATE/TIME: 04/27/2020 1:15 pm REASON FOR STUDY: 15; fall COMPARISON: None. NUMBER OF VIEWS: Three views. TECHNIQUE: Internal rotation, external rotation, and Y view images acquired of the right shoulder. LIMITATIONS: None. FINDINGS: MINERALIZATION: Osteopenia. BONES: No acute fracture or cortical disruption. Joint space narrowing with marginal osteophytes at the glenoid and humeral head. Subchondral sclerosis and cystic change. JOINTS: Normal acromioclavicular joint alignment. Glenohumeral joint is narrowed with normal articul ation. VISUALIZED LUNGS AND RIBS: No pneumothorax. No rib fracture. SOFT TISSUES: Vascular stent at the subclavian region. OTHER: No other significant finding. IMPRESSION: No acute fracture or dislocation of the right shoulder. Moderate osteoarthritis of the glenohumeral joint. TECHNICAL DOCUMENTATION: JOB ID: [id number] 2010 [employer]- All Rights Reserved Reading location - IP/workstation name: [email or web address]
[2020-04-27] MEDS ORDERED: MORPHINE SULFATE 10 MG/ML INJ IM ONE (15:02)
[2020-04-27] MEDS ORDERED: METOCLOPRAMIDE HCL INJ/PF 10 MG/2 ML SDV IV ONE (17:08)
[2020-04-27] MEDS ORDERED: MORPHINE SULFATE 10 MG/ML INJ IV ONE (17:10)
[2020-04-27 17:17] LABS: ABSOLUTE EOSINOPHILS # (AUTO) 0.2 10^3/uL (0.0-0.6); ABSOLUTE MONOCYTES (AUTO) 0.6 10^3/uL (0.1-1.4); ABSOLUTE NEUT (AUTO) 2.2 10^3/uL (1.7-8.2); BASOPHILS % (AUTO) 0.8 % (0-2); EOSINOPHILS % (AUTO) 4.8 % (0-6); HEMATOCRIT 29.9 % (36.0-47.0); HEMOGLOBIN 9.6 g/dL (12.0-15.5); LYMPHOCYTES % (AUTO) 24.3 % (13-45); MEAN CORPUSCULAR HEMOGLOBIN 27.7 pg (27.0-33.4); MEAN CORPUSCULAR HGB CONC 32.2 g/dL (32.0-36.0); MEAN CORPUSCULAR VOLUME 86 fl (80-97); MONOCYTES % (AUTO) 15.5 % (3-13); PLATELET COUNT 126 10^3/uL (150-450); RED BLOOD COUNT 3.47 10^6/uL (3.72-5.28); RED CELL DISTRIBUTION WIDTH 15.2 % (11.5-14.0); SEGMENTED NEUTROPHILS % (AUTO) 54.6 % (42-78); TOTAL CELLS COUNTED % (AUTO) 100 %
[2020-04-27 17:29] LABS: ANION GAP 10 (5-19); BLOOD UREA NITROGEN 49 mg/dL (7-20); CALCIUM 8.8 mg/dL (8.4-10.2); CARBON DIOXIDE 29 mmol/L (22-30); CHLORIDE 100 mmol/L (98-107); GLUCOSE 115 mg/dL (75-110); POTASSIUM 3.5 mmol/L (3.6-5.0)
[2020-04-27] MEDS ORDERED: PROMETHAZINE HCL INJ 25 MG/1 ML VIAL IM ONE (17:39)
[2020-04-27 19:53] VITALS: BP 134/68
--- NOTE | 2020-04-27 22:39 | EKG REPORT ---
SEVERITY:- ABNORMAL ECG - SINUS RHYTHM LEFT ATRIAL ABNORMALITY PROBABLE LEFT VENTRICULAR HYPERTROPHY : Confirmed by: Darwin Curiel 27-Apr-2020 22:38:06
== END 2020-04-27 19:51 | disposition home or self-care (01) ==
LOC: ER 13:12
DX: S09.90XA Unspecified injury of head, initial encounter (principal); S40.011A Contusion of right shoulder, initial encounter; R53.1 Weakness; R42 Dizziness and giddiness; W19.XXXA Unspecified fall, initial encounter; I12.0 Hypertensive chronic kidney disease with stage 5 chronic kidney disease or end stage renal disease; E11.22 Type 2 diabetes mellitus with diabetic chronic kidney disease; N18.6 End stage renal disease; Z99.2 Dependence on renal dialysis; Z88.6 Allergy status to analgesic agent; I25.2 Old myocardial infarction
CPT/HCPCS: 93005; 99285; 96372; 96374; 36415; 85025; 80048; 73030; 70450; 93010; J2270; J2550; A9270

== ENCOUNTER 2020-04-28 19:30 | Emergency (ER) | payer MEDICARE, OTHER, MEDICAID ==
[2020-04-28 19:45] VITALS: BP 121/64
== END 2020-04-28 20:00 | disposition left against medical advice (07) ==
LOC: ER 19:30
DX: Z53.21 Procedure and treatment not carried out due to patient leaving prior to being seen by health care provider (principal)

== ENCOUNTER 2020-04-30 05:42 | Day surgery (SDC) | payer MEDICARE, OTHER, MEDICAID ==
[2020-04-26 09:21] LABS: HEMATOCRIT 28.7 % (36.0-47.0); HEMOGLOBIN 9.4 g/dL (12.0-15.5); MEAN CORPUSCULAR HEMOGLOBIN 28.1 pg (27.0-33.4); MEAN CORPUSCULAR HGB CONC 32.6 g/dL (32.0-36.0); PLATELET COUNT 129 10^3/uL (150-450); RED BLOOD COUNT 3.33 10^6/uL (3.72-5.28); RED CELL DISTRIBUTION WIDTH 15.6 % (11.5-14.0); WHITE BLOOD COUNT 6.6 10^3/uL (4.0-10.5)
[2020-04-26 09:27] LABS: MEAN CORPUSCULAR VOLUME 86 fl (80-97)
[2020-04-26 10:00] LABS: ANION GAP 10 (5-19); BLOOD UREA NITROGEN 69 mg/dL (7-20); CALCIUM 8.1 mg/dL (8.4-10.2); CARBON DIOXIDE 25 mmol/L (22-30); CHLORIDE 101 mmol/L (98-107); GLUCOSE 169 mg/dL (75-110); POTASSIUM 4.2 mmol/L (3.6-5.0)
[~2020-04-30 05:42] MED LIST changes: +ACETAMINOPHEN 1,000 MG/100 ML RTUPB IV ONE; +ACETAMINOPHEN 1,000 MG/100 ML RTUPB IV PRN; +CEFAZOLIN 2 GM/D5W RTU 2 GM/50 ML RTUPB IV ONE; +CEFAZOLIN 2 GM/D5W RTU 2 GM/50 ML RTUPB IV PRN; -FERRIC CARBOXYMALTOSE 750 MG in NORMAL SALINE 250 ML IV PRN; +LIDOCAINE 0.5% INJ-PF (5 MG/ML) 50 ML SDV SUBCUT PRN; +NORMAL SALINE 1000 ML (RENAL PATIENTS) IV PRN; -NORMAL SALINE 250 ML IV PRN; -NORMAL SALINE 500 ML IV PRN
[2020-04-30] MEDS ORDERED: FENTANYL CITRATE INJ/PF 100 MCG/2 ML AMPUL ONE (07:02)
[2020-04-30] MEDS ORDERED: PROPOFOL INJ 200 MG/20 ML VIAL IV ONE (07:03)
[2020-04-30] MEDS ORDERED: MIDAZOLAM 2 MG/2 ML INJ ONE (07:03)
[2020-04-30] MEDS ORDERED: MORPHINE SULFATE 10 MG/ML INJ ONE (07:03)
[2020-04-30] MEDS ORDERED: ONDANSETRON HCL INJ/PF 4 MG/2 ML SDV ONE (07:03)
[2020-04-30] MEDS ORDERED: SUGAMMADEX SODIUM 200 MG/2 ML SDV IV ONE (07:05)
[2020-04-30] MEDS ORDERED: EPHEDRINE SULFATE INJ 50 MG/1 ML AMPULE ONE (07:10)
[2020-04-30] MEDS ORDERED: LIDOCAINE 2% INJ-PF (20 MG/ML) 10 ML AMPUL ONE (07:10)
[2020-04-30] MEDS ORDERED: BUPIVACAINE HCL 0.25 % INJ/PF (2.5 MG/1 ML) 30 ML VIAL ONE (07:15)
[2020-04-30] MEDS ORDERED: DIPHENHYDRAMINE HCL 50 MG/ML VIAL IV PRN (08:01)
[2020-04-30] MEDS ORDERED: OXYCODONE-ACETAMINOPHEN 5-325 MG TABLET PO PRN ×2 (08:01)
[2020-04-30] MEDS ORDERED: PROMETHAZINE HCL INJ 25 MG/1 ML VIAL IV PRN (08:01)
[2020-04-30] MEDS ORDERED: MORPHINE SULFATE 10 MG/ML INJ IV PRN (08:01)
[2020-04-30] MEDS ORDERED: FENTANYL CITRATE INJ/PF 100 MCG/2 ML AMPUL IV PRN ×3 (08:01)
[2020-04-30] MEDS ORDERED: MEPERIDINE HCL/PF INJ 25 MG/1 ML DISP.SYRIN IV PRN (08:01)
[2020-04-30] MEDS ORDERED: HEPARIN SOD (PORCINE) 1,000 UNIT/ML 1 ML VIAL ONE (08:49)
--- NOTE | 2020-04-30 09:34 | Discharge Summary ---
Discharge Summary (SDC) - Discharge Final Diagnosis: need for dialysis, renal failure Date of Surgery: 04/30/20 Discharge Date: 04/30/20 Condition: Stable Treatment or Instructions: Discharge home. diet: as tolerated. Activity: nonstrenuous. no lifting >10 lbs x 2 weeks. Do not get dressing wet until seen in office. F/u with me in 7-10 days. Referrals: JAYLIN LEROY PA-C [Primary Care Provider] - Discharge Diet: As Tolerated Respiratory Treatments at Home: Deep Breathing/Coughing, Incentive Spirometer Discharge Activity: Balance Activity w/Rest, No Lifting Over 10 Pounds, No Lifting/Push/Pulling Home Care Assistance: None Needed Report the Following to Your Physician Immediately: Shortness of Breath, Nausea, Vomiting, Increase in Pain
--- NOTE | 2020-04-30 09:45 | Operative Report ---
Nonrecallable Operative Report DATE OF SURGERY: 04/30/20 PREOPERATIVE DIAGNOSIS: Renal failure, need for dialysis POSTOPERATIVE DIAGNOSIS: Same as above OPERATION: 1. Laparoscopic lysis of adhesions. 2. Laparoscopic peritoneal dialysis catheter, placed on right side SURGEON: BJ LICONA 1ST CONSTRUCTION PLUMBER: GAURI PERRY ANESTHESIA: GA TISSUE REMOVED OR ALTERED: None COMPLICATIONS: None apparent ESTIMATED BLOOD LOSS: minimal PROCEDURE: Drains/implants: Peritoneal dialysis catheter placed on the right side. Procedure in detail: After informed consent was obtained, the patient was brought to the operating room and laid in the supine position. The area of the abdomen was prepped and draped in a normal sterile fashion. A 5 mm trocar and 5 mm camera were inserted into the abdominal cavity, in the left upper quadrant, under direct visualization using the Optiview technique. Once the camera was inserted, pneumoperitoneum was achieved. The abdomen was surveyed. There were some adhesions of the colon and small bowel to the lower anterior abdominal wall. A second 5 mm trocar was placed in the right upper quadrant. This was used to facilitate mobilization of the small bowel and colon out of the pelvis. There were some adhesions to the anterior abdominal wall. These were lysed sharply with scissors. Once the small bowel and sigmoid colon were able to be elevated away from the pelvis, it was felt that placement of the peritoneal dialysis catheter into the pouch of Jamie would be successful. An 8 mm trocar was placed into the rectus sheath, inferior to the umbilicus. The catheter was placed through the 8 mm trocar, and situated into the pelvis. This was done under direct laparoscopic visualization. The cuff was pulled back into the rectus sheath, out of the peritoneal cavity. Next, the tunneler was used to tunnel the catheter toward the right lateral abdomen, and exited through the skin. This was done with a gentle curve, to lay in a dependent position. Next, approximately 600 cc of saline irrigation was instilled into the abdomen. 500 cc of saline irrigation was easily returned using gravity. The catheter appeared to work normally. The catheter was then blocked with heparinized saline. Gas insufflation was removed, and pneumoperitoneum was relieved. The 5 mm trochars were removed from the abdominal wall. The skin was closed using 4-0 Vicryl Rapide suture in subcuticular fashion. Dressings were placed, and the catheter was secured to the skin using Steri-Strips. Occlusive dressing was placed over the peritoneal dialysis catheter. At this time the procedure was concluded. All sponge, instrument, and needle counts were correct x2. Condition: Stable. Gauri Perry PA-C was scrubbed and present the entirety of the procedure. She assisted with all portions of the procedure including placement of the trochars, manipulation of the camera, insertion of the catheter, tunneling of the catheter, closure of the skin, placement of the dressings.
[2020-04-30] MEDS ORDERED: FLUMAZENIL INJ 0.5 MG/5 ML VIAL ONE (10:13)
[2020-04-30 12:28] VITALS: BP 108/53
[2020-04-30] MEDS ORDERED: PHENYLEPHRINE HCL INJ/PF 10 MG/1 ML SDV ONE (13:51)
[2020-04-30] MEDS ORDERED: GLYCOPYRROLATE 1 MG/5 ML VIAL ONE (13:51)
[2020-04-30] MEDS ORDERED: NEOSTIGMINE METHYLSULFATE 10 MG/10 ML VIAL ONE (13:51)
[2020-04-30] MEDS ORDERED: SUCCINYLCHOLINE CHLORIDE INJ 200 MG/10 ML VIAL ONE (13:51)
[2020-04-30] MEDS ORDERED: ROCURONIUM BROMIDE INJ 50 MG/5 ML VIAL IV ONE (13:51)
== END 2020-04-30 12:25 | disposition home or self-care (01) ==
LOC: OROUT 05:42
PROVIDERS: ATTEND Surgery
DX: I12.0 Hypertensive chronic kidney disease with stage 5 chronic kidney disease or end stage renal disease (principal); N18.6 End stage renal disease; Z01.812 Encounter for preprocedural laboratory examination; Z20.822 Contact with and (suspected) exposure to COVID-19; J45.909 Unspecified asthma, uncomplicated; G47.33 Obstructive sleep apnea (adult) (pediatric); K31.84 Gastroparesis; E66.01 Morbid (severe) obesity due to excess calories; Z99.2 Dependence on renal dialysis; Z68.41 Body mass index [BMI] 40.0-44.9, adult; M19.90 Unspecified osteoarthritis, unspecified site; Z79.899 Other long term (current) drug therapy
CPT/HCPCS: 36415; 82962; 85027; 80048; 49324; U0003; J3490 ×6; J2250; J3010; J2710; J2370; J0330; J2704; J0690; J1642; J0131; C9803; 87635; C1750; J1644; J2270; J2405

== ENCOUNTER 2020-04-30 22:43 | Emergency (ER) | payer MEDICARE, OTHER, MEDICAID ==
[2020-04-30 22:55] VITALS: BP 115/75
--- NOTE | 2020-04-30 23:47 | ER Document Report ---
ED Medical Screen (RME) - General Chief Complaint: Post Surgical Pain Stated Complaint: ARM/LEG TINGLING X2DAYS/FATIGUE Time Seen by Provider: 04/30/20 23:28 Primary Care Provider: JAYLIN LEROY PA-C [Primary Care Provider] - Follow up as needed TRAVEL OUTSIDE OF THE [place] IN LAST 30 DAYS: No - HPI Notes: 04/30/20 23:42 Rapid Medical Exam HPI: pt is a 54yo female that presents w/ possible seizure activity tonight by ems. Pt had a peritoneal dialysis cath placed this afternoon and was discharged home. PT says her says she ''stiffened up'' while laying in bed and had some jerking movements. PT believes she bit her tongue, no incont. episode last just a minute or so. PT does not remember event, but does remember immediately after. she has no hx of seizure activity. she reports some pain at PD site but no bleeding or drainage. denies abdominal distension or firmness. some vomiting and nausea tonight. denies fever or chest pains. Physical Exam: GENERAL: Well-appearing, well-nourished and in no acute distress. HEAD: Atraumatic, normocephalic. ENT: Moist mucous membranes. RESP: Respirations even and unlabored. slight expiratory wheeze. CV- Regular rate. NEURO: No focal neurological deficits. Moves all extremities spontaneously and on command. pt refuses further workup. she is upset that she has to go to the wait room and not straight back to an exam room. there is only about 5 people in the wait room at this time. we offered to medicate pt in triage for nausea, ect but she declines. she insists she is okay and wants to go home and her is coming to pick her up. she is signing out AMA. My involvement in this patients care was limited to a rapid initial assessment. A comprehensive ED assessment and evaluation of the patient, analysis of test results, treatment, and completion of the medical decision making process will be performed by other ER providers. - Related Data Allergies/Adverse Reactions: codeine [Codeine] Allergy (Mild, Verified 04/30/20 06:45) Itching ketorolac tromethamine [From Toradol] Allergy (Unknown, Verified 04/30/20 06:45) Anxiety nalbuphine HCl [From Nubain] Allergy (Unknown, Verified 04/30/20 06:45) Anxiety ondansetron HCl [From Zofran] Allergy (Unknown, Verified 04/30/20 06:45) Itching droperidol [Droperidol] Allergy (Verified 04/30/20 06:45) reports heart racing, doesn't like how it makes her feel prochlorperazine [From Compazine] Allergy (Verified 04/30/20 06:45) Home Medications: hydrocodone, Past Medical History - Social History Frequency of alcohol use: None Drug Abuse: None - Past Medical History Cardiac Medical History: Reports: Hx Coronary Artery Disease, Hx Heart Attack - NO INTERVENTION NEEDED 2017, Hx Hypercholesterolemia, Hx Hypertension Pulmonary Medical History: Reports: Hx Asthma - MILD, Hx Sleep Apnea Denies: Hx Bronchitis, Hx COPD, Hx Pneumonia Neurological Medical History: Reports: Hx Migraine. Denies: Hx Cerebrovascular Accident, Hx Seizures Endocrine Medical History: Reports: Hx Diabetes Mellitus Type 2 Renal/ Medical History: Reports: Hx End Stage Renal Disease, Hx Hemodialysis - MWF, Hx Renal Insufficiency. Denies: Hx Peritoneal Dialysis GI Medical History: Reports: Hx Gastroesophageal Reflux Disease, Hx Irritable Bowel Musculoskeltal Medical History: Reports Hx Arthritis, Reports Hx Fibromyalgia, Reports Hx Musculoskeletal Deformity, Reports Hx Musculoskeletal Trauma Skin Medical History: Denies Hx Eczema, Denies Hx Psoriasis Psychiatric Medical History: Reports: Hx Depression, Hx Post Traumatic Stress Disorder Past Surgical History: Reports: Hx Appendectomy, Hx Cardiac Catheterization - 3, Hx Cholecystectomy, Hx Hysterectomy, Hx Orthopedic Surgery - RIGHT ANKLE SURGERY 01/2011, shoulder surgery 12/2106, Hx Thyroid Surgery, Hx Vascular Surgery - port a cath R upper chest. Denies: Hx Pacemaker - Immunizations Hx Diphtheria, Pertussis, Tetanus Vaccination: Yes - 06/17/17 Physical Exam - Vital signs Vitals: Temp Pulse Resp BP Pulse Ox 99.2 F 121 H 20 115/75 98 04/30/20 22:54 04/30/20 22:54 04/30/20 22:54 04/30/20 22:54 04/30/20 22:54 Course - Vital Signs Vital signs: Temp Pulse Resp BP Pulse Ox 99.2 F 121 H 20 115/75 98 04/30/20 22:54 04/30/20 22:54 04/30/20 22:54 04/30/20 22:54 04/30/20 22:54 Doctor's Discharge - Discharge Referrals: JAYLIN LEROY PA-C [Primary Care Provider] - Follow up as needed
== END 2020-04-30 23:44 | disposition left against medical advice (07) ==
LOC: ER 22:43
DX: R11.2 Nausea with vomiting, unspecified (principal); G89.18 Other acute postprocedural pain; R20.0 Anesthesia of skin; R53.83 Other fatigue; Z88.8 Allergy status to other drugs, medicaments and biological substances; I25.10 Atherosclerotic heart disease of native coronary artery without angina pectoris; I25.2 Old myocardial infarction; I10 Essential (primary) hypertension; J45.909 Unspecified asthma, uncomplicated; E11.9 Type 2 diabetes mellitus without complications
CPT/HCPCS: 99281

== ENCOUNTER 2020-05-14 22:51 | Emergency (ER) | payer MEDICARE, OTHER, MEDICAID ==
[2020-05-14] MEDS ORDERED: PROMETHAZINE HCL INJ 25 MG/1 ML VIAL IV ONE (23:45)
[2020-05-14] MEDS ORDERED: RINGERS SOLUTION,LACTATED 1,000 ML IV ONE (23:45)
[2020-05-14] MEDS ORDERED: DIPHENHYDRAMINE HCL 50 MG/ML VIAL IV ONE (23:45)
[2020-05-14] MEDS ORDERED: HYDROCODONE/ACETAMINOPHEN 5-325 MG TABLET PO ONE (23:46)
--- NOTE | 2020-05-14 23:52 | ER Document Report ---
ED Medical Screen (RME) - General Chief Complaint: Dizziness Stated Complaint: RIGHT ARM PAIN Time Seen by Provider: 05/14/20 23:34 Primary Care Provider: JAYLIN LEROY PA-C [Primary Care Provider] - Follow up as needed Mode of Arrival: Wheelchair Information source: Patient Notes: HPI; 54-year-old female presents to the emergency room complaining of persistent worsening right shoulder pain. Patient states she had a fall back in March had a recent MRI and is scheduled for surgery with Dr. Paulino but states not until June. Has been taking tramadol for her chronic fibromyalgia which she states is not helping with her pain. States she called Dr. Mixon who is on- call for Ortho and he recommended she come to the emergency room. She is not had any new trauma or injury to the shoulder. She has been seen in the ER multiple times over the past month for dizziness and generalized weakness. She is also complaining of a migraine headache that started earlier today. States the pain in her shoulders causing her migraine. Complains of nausea but no vomiting. Photophobia. States she took her migraine medicine without relief. States her headache is similar to her previous migraines. No sudden thunderclap. Not the worst headache of her life. PE: Alert and oriented x3. PERRLA, EOMI lungs: Clear to auscultation without rales, rhonchi, wheezes. Heart: Regular rate rhythm without murmurs, rubs, gallops. I have greeted and performed a rapid initial assessment of this patient. A comprehensive ED assessment and evaluation of the patient, analysis of test results and completion of the medical decision making process will be conducted by additional ED providers. I have specifically instructed the patient or family members with the patient to immediately return to any nursing staff should anything change in the patient's condition or with their chief complaint. TRAVEL OUTSIDE OF THE [place] IN LAST 30 DAYS: No - Related Data Allergies/Adverse Reactions: codeine [Codeine] Allergy (Mild, Verified 04/30/20 06:45) Itching ketorolac tromethamine [From Toradol] Allergy (Unknown, Verified 04/30/20 06:45) Anxiety nalbuphine HCl [From Nubain] Allergy (Unknown, Verified 04/30/20 06:45) Anxiety ondansetron HCl [From Zofran] Allergy (Unknown, Verified 04/30/20 06:45) Itching droperidol [Droperidol] Allergy (Verified 04/30/20 06:45) reports heart racing, doesn't like how it makes her feel prochlorperazine [From Compazine] Allergy (Verified 04/30/20 06:45) Past Medical History - Past Medical History Cardiac Medical History: Reports: Hx Coronary Artery Disease, Hx Heart Attack - NO INTERVENTION NEEDED 2017, Hx Hypercholesterolemia, Hx Hypertension Pulmonary Medical History: Reports: Hx Asthma - MILD, Hx Sleep Apnea Denies: Hx Bronchitis, Hx COPD, Hx Pneumonia Neurological Medical History: Reports: Hx Migraine. Denies: Hx Cerebrovascular Accident, Hx Seizures Endocrine Medical History: Reports: Hx Diabetes Mellitus Type 2 Renal/ Medical History: Reports: Hx End Stage Renal Disease, Hx Hemodialysis - MWF, Hx Renal Insufficiency. Denies: Hx Peritoneal Dialysis GI Medical History: Reports: Hx Gastroesophageal Reflux Disease, Hx Irritable Bowel Musculoskeltal Medical History: Reports Hx Arthritis, Reports Hx Fibromyalgia, Reports Hx Musculoskeletal Deformity, Reports Hx Musculoskeletal Trauma Skin Medical History: Denies Hx Eczema, Denies Hx Psoriasis Psychiatric Medical History: Reports: Hx Depression, Hx Post Traumatic Stress Disorder Past Surgical History: Reports: Hx Appendectomy, Hx Cardiac Catheterization - 3, Hx Cholecystectomy, Hx Hysterectomy, Hx Orthopedic Surgery - RIGHT ANKLE SURGERY 01/2011, shoulder surgery 12/2106, Hx Thyroid Surgery, Hx Vascular Surgery - port a cath R upper chest. Denies: Hx Pacemaker - Immunizations Hx Diphtheria, Pertussis, Tetanus Vaccination: Yes - 06/17/17 Physical Exam - Vital signs Vitals: Temp Pulse Resp BP Pulse Ox 98.7 F 101 H 18 127/63 H 96 05/14/20 23:15 05/14/20 23:15 05/14/20 23:15 05/14/20 23:15 05/14/20 23:15 Course - Vital Signs Vital signs: Temp Pulse Resp BP Pulse Ox 98.7 F 101 H 18 127/63 H 96 05/14/20 23:15 05/14/20 23:15 05/14/20 23:15 05/14/20 23:15 05/14/20 23:15 Doctor's Discharge - Discharge Referrals: JAYLIN LEROY PA-C [Primary Care Provider] - Follow up as needed
[2020-05-15 03:15] VITALS: BP 113/80
--- NOTE | 2020-05-15 03:22 | ER Document Report ---
ED Dizziness/Weakness - General Chief Complaint: General Weakness Stated Complaint: RIGHT ARM PAIN Time Seen by Provider: 05/14/20 23:34 Primary Care Provider: JAYLIN LEROY PA-C [NO LOCAL MD] - Follow up as needed Mode of Arrival: Wheelchair Information source: Patient Notes: 05/14/20 23:48 - ED Nursing Note by ALBERTODIANELYSRosemary Torres Num: [id number] : 1965 Patient Age: 54 pt has extreme pain in rt shoulder. she is scheduled for surg 06/17/20. pt has fallen 3 times yesterday. states she stands up and she is dizzy and she just goes down. she is a dialysis pt. ED Medical Screen (Brittny Notes ) - General Chief Complaint: Dizziness Stated Complaint: RIGHT ARM PAIN Time Seen by Provider: 05/14/20 23:34 Primary Care Provider: JAYLIN LEROY PA-C [Primary Care Provider] - Follow up as needed Mode of Arrival: Wheelchair Information source: Patient Notes: HPI; 54-year-old female presents to the emergency room complaining of persistent worsening right shoulder pain. Patient states she had a fall back in March had a recent MRI and is scheduled for surgery with Dr. Paulino but states not until June. Has been taking tramadol for her chronic fibromyalgia which she states is not helping with her pain. States she called Dr. Mixon who is on- call for Ortho and he recommended she come to the emergency room. She is not had any new trauma or injury to the shoulder. She has been seen in the ER multiple times over the past month for dizziness and generalized weakness. She is also complaining of a migraine headache that started earlier today. States the pain in her shoulders causing her migraine. Complains of nausea but no vomiting. Photophobia. States she took her migraine medicine without relief. States her headache is similar to her previous migraines. No sudden thunderclap. Not the worst headache of her life. PE: Alert and oriented x3. PERRLA, EOMI lungs: Clear to auscultation without rales, rhonchi, wheezes. Heart: Regular rate rhythm without murmurs, rubs, gallops. MY NOTES 54-year-old black female arrives with chief complaint of chronic right shoulder pain and also chronic headache for least 6 weeks. Patient reports her pain medication was not working the night and therefore she called her orthopedic doctor Dr. Linder.. Who is actually information technology project manager tonight. Patient advises also she has dizziness upon turning her head and complains of left greater than right earache. Brief inspection of her right shoulder reveals chronic tenderness of her right anterior and dorsal shoulder with some edema. Also patient has bilateral serous TMs. I will CT her head and neck to ascertain any cervical neuralgia problems. Patient reports she is fallen 3 times yesterday. She is E SRD on dialysis TRAVEL OUTSIDE OF THE [place] IN LAST 30 DAYS: No - HPI Patient complains to provider of: Dizziness, Near-syncope, Vertigo Onset: Yesterday Onset/Duration: Sudden, Persistent Quality of pain: Achy Severity: Moderate Pain Level: 3 Associated symptoms: Loss of motor function - Of right shoulder secondary to pain, Recent fall Exacerbated by: Change in position, Movement of head Baseline gait: Walks w/o assistance - Related Data Allergies/Adverse Reactions: codeine [Codeine] Allergy (Mild, Verified 04/30/20 06:45) Itching ketorolac tromethamine [From Toradol] Allergy (Unknown, Verified 04/30/20 06:45) Anxiety nalbuphine HCl [From Nubain] Allergy (Unknown, Verified 04/30/20 06:45) Anxiety ondansetron HCl [From Zofran] Allergy (Unknown, Verified 04/30/20 06:45) Itching droperidol [Droperidol] Allergy (Verified 04/30/20 06:45) reports heart racing, doesn't like how it makes her feel prochlorperazine [From Compazine] Allergy (Verified 04/30/20 06:45) Past Medical History - General Information source: Patient - Social History Smoking Status: Never Smoker Cigarette use (# per day): No Chew tobacco use (# tins/day): No Smoking Education Provided: No Frequency of alcohol use: None Drug Abuse: None Lives with: Family Family History: Reviewed & Not Pertinent, CAD, CVA, Hypertension Patient has suicidal ideation: No Patient has homicidal ideation: No - Past Medical History Cardiac Medical History: Reports: Hx Coronary Artery Disease, Hx Heart Attack - NO INTERVENTION NEEDED 2018, Hx Hypercholesterolemia, Hx Hypertension Pulmonary Medical History: Reports: Hx Asthma - MILD, Hx Sleep Apnea Denies: Hx Bronchitis, Hx COPD, Hx Pneumonia Neurological Medical History: Reports: Hx Migraine. Denies: Hx Cerebrovascular Accident, Hx Seizures Endocrine Medical History: Reports: Hx Diabetes Mellitus Type 2 Renal/ Medical History: Reports: Hx End Stage Renal Disease, Hx Hemodialysis - MWF, Hx Renal Insufficiency. Denies: Hx Peritoneal Dialysis GI Medical History: Reports: Hx Gastroesophageal Reflux Disease, Hx Irritable Bowel Musculoskeletal Medical History: Reports Hx Arthritis, Reports Hx Fibromyalgia, Reports Hx Musculoskeletal Deformity, Reports Hx Musculoskeletal Trauma Skin Medical History: Denies Hx Eczema, Denies Hx Psoriasis Psychiatric Medical History: Reports: Hx Depression, Hx Post Traumatic Stress Disorder Past Surgical History: Reports: Hx Appendectomy, Hx Cardiac Catheterization - 3, Hx Cholecystectomy, Hx Hysterectomy, Hx Orthopedic Surgery - RIGHT ANKLE SURGERY 01/2011, shoulder surgery 12/2106, Hx Thyroid Surgery, Hx Vascular Surgery - port a cath R upper chest. Denies: Hx Pacemaker - Immunizations Hx Diphtheria, Pertussis, Tetanus Vaccination: Yes - 06/17/17 Hx Pneumococcal Vaccination: 04/19/17 Review of Systems - Review of Systems Constitutional: See HPI, Weakness EENT: See HPI, Ear pain Cardiovascular: No symptoms reported Respiratory: No symptoms reported Gastrointestinal: No symptoms reported Genitourinary: No symptoms reported Female Genitourinary: No symptoms reported Musculoskeletal: See HPI, Joint pain - Right shoulder pain on range of motion and palpation Skin: No symptoms reported Hematologic/Lymphatic: No symptoms reported Neurological/Psychological: See HPI, Weakness - And dizzy Physical Exam - Vital signs Vitals: Temp Pulse Resp BP Pulse Ox 98.7 F 101 H 18 127/63 H 96 05/14/20 23:15 05/14/20 23:15 05/14/20 23:15 05/14/20 23:15 05/14/20 23:15 Interpretation: Normal - General General appearance: Appears well, Alert - HEENT Head: Normocephalic, Atraumatic Eyes: Normal Conjunctiva: Normal Pupils: PERRL Ears: Normal External canal: Normal - Some cerumen in canal but able to see TM Tympanic membrane: Serous effusion - Bilaterally serous Sinus: Normal Nasal: Normal Mouth/Lips: Normal Mucous membranes: Normal Pharynx: Normal Neck: Normal - Respiratory Respiratory status: No respiratory distress Chest status: Nontender Breath sounds: Normal Chest palpation: Normal - Cardiovascular Rhythm: Regular Heart sounds: Normal auscultation Murmur: No - Abdominal Inspection: Normal Distension: No distension Bowel sounds: Normal Tenderness: Nontender Organomegaly: No organomegaly - Rectal Hemorrhoids: Other - Deferred - Genitourinary Bimanuel exam: Other - Deferred - Back Back: Normal, Nontender - Extremities General upper extremity: Normal inspection, Nontender, Normal color, Normal ROM, Normal temperature General lower extremity: Normal inspection, Nontender, Normal color, Normal ROM, Normal temperature, Normal weight bearing. No: Hussein's sign - Neurological Neuro grossly intact: Yes Cognition: Normal Orientation: AAOx4 Casandra Coma Scale Eye Opening: Spontaneous [place] Coma Scale Verbal: Oriented [place] Coma Scale Motor: Obeys Commands [place] Coma Scale Total: 15 Speech: Normal Motor strength normal: LUE, RUE, LLE, RLE Sensory: Normal - Psychological Associated symptoms: Anxious - Skin Skin Temperature: Warm Skin Moisture: Dry Skin Color: Normal Course - Vital Signs Vital signs: Temp Pulse Resp BP Pulse Ox 98.7 F 81 14 113/80 99 05/14/20 23:15 05/15/20 03:00 05/15/20 03:09 05/15/20 03:09 05/15/20 03:09 - Laboratory Results Critical Laboratory Results Reviewed: Yes Attending or Supervising Physician who Reviewed Labs: HANNAH RHODSE JR - Radiology Results Critical Radiology Results Reviewed: Yes Attending or Supervising Physician who Reviewed Radiology: HANNAH RHODES JR Discharge - Discharge Clinical Impression: Chronic pain syndrome, End stage renal disease on dialysis, Vertigo Migraine headache Qualifiers: Migraine type: unspecified Status migrainosus presence: without status migrainosus Intractability: not intractable Qualified Code(s): G43.909 - Migraine, unspecified, not intractable, without status migrainosus Acute serous otitis media of both ears Qualifiers: Recurrence: recurrent Qualified Code(s): H65.06 - Acute serous otitis media, recurrent, bilateral Condition: Stable Disposition: HOME, SELF-CARE Instructions: Antinausea Medication ([facility]), Dizziness ([facility]) Additional Instructions: Follow-up with personal doctor return to ER as needed take medicines as directed encourage fluids; try to keep fluids under three fourths of a quart because of your dialysis problem. May apply Voltaren gel to the external area of her injuryright shoulder. Take meclizine Antivert for your dizziness and serous otitis media. Prescriptions: Meclizine HCl [Antivert 25 mg Tablet] 25 mg PO TID PRN #21 tablet PRN Reason: Referrals: JAYLIN LEROY PA-C [NO LOCAL MD] - Follow up as needed
[2020-05-15] MEDS ORDERED: NORMAL SALINE 500 ML IV ONE (03:41)
[2020-05-15] MEDS ORDERED: HYDROMORPHONE HCL INJ/PF 2 MG/ML AMPULE IV ONE (03:41)
[2020-05-15] MEDS ORDERED: MECLIZINE HCL 25 MG TABLET PO ONE (03:42)
[2020-05-15] MEDS ORDERED: METOCLOPRAMIDE HCL INJ/PF 10 MG/2 ML SDV IV ONE (03:43)
[2020-05-15] MEDS ORDERED: PROMETHAZINE HCL INJ 25 MG/1 ML VIAL IV ONE (04:32)
--- NOTE | 2020-05-15 04:41 | RADIOLOGY REPORT (SQ) ---
CT head without contrast on 05/15/2020 at 4:00 AM CLINICAL INDICATION: Headache TECHNIQUE: Multiple axial images are obtained throughout the head without the administration of contrast. This exam was performed according to our departmental dose-optimization program, which includes automated exposure control, adjustment of the mA and/or kV according to patient size and/or use of iterative reconstruction technique. Total DLP is 1043.77 mGy*cm. COMPARISON: 04/27/2020 FINDINGS: There is no hydrocephalus. There is no CT evidence of acute infarct. There is no hemorrhage. There are no abnormal extra-axial fluid collections. There is no mass, mass effect or midline shift. No bony abnormality is noted. IMPRESSION: No acute intracranial abnormality.
--- NOTE | 2020-05-15 04:44 | RADIOLOGY REPORT (SQ) ---
CT cervical spine without contrast on 05/15/2020 at 4:03 AM CLINICAL INDICATION: Neck pain, right shoulder pain TECHNIQUE: Multiple axial images are obtained throughout the cervical spine without the administration of contrast. Sagittal and coronal reformatted images are also performed and reviewed. This exam was performed according to our departmental dose-optimization program, which includes automated exposure control, adjustment of the mA and/or kV according to patient size and/or use of iterative reconstruction technique. Total DLP is 771.69 mGy*cm. COMPARISON: 04/07/2020 FINDINGS: There is mild reversal of the normal cervical lordosis. Degenerative disc disease is noted especially at C5-6. Reformatted images reveal otherwise normal alignment of the cervical spine. Right subclavian venous stent extends into the brachiocephalic vein near the SVC. There are no acute fracture lines. There is no prevertebral soft tissue swelling. No disc herniation is noted. No level of definite significant canal stenosis or foraminal narrowing is noted. IMPRESSION: Degenerative changes with no acute abnormality.
== END 2020-05-15 05:49 | disposition home or self-care (01) ==
LOC: ER 22:51
DX: G89.4 Chronic pain syndrome (principal); M79.7 Fibromyalgia; M25.511 Pain in right shoulder; G43.909 Migraine, unspecified, not intractable, without status migrainosus; H65.06 Acute serous otitis media, recurrent, bilateral; I12.0 Hypertensive chronic kidney disease with stage 5 chronic kidney disease or end stage renal disease; E11.22 Type 2 diabetes mellitus with diabetic chronic kidney disease; N18.6 End stage renal disease; Z99.2 Dependence on renal dialysis; H61.20 Impacted cerumen, unspecified ear; M47.9 Spondylosis, unspecified; R53.1 Weakness; R42 Dizziness and giddiness; R11.0 Nausea; H53.149 Visual discomfort, unspecified; J45.909 Unspecified asthma, uncomplicated; I25.10 Atherosclerotic heart disease of native coronary artery without angina pectoris; Z79.891 Long term (current) use of opiate analgesic; Z91.81 History of falling; Z88.6 Allergy status to analgesic agent; Z88.5 Allergy status to narcotic agent; Z88.8 Allergy status to other drugs, medicaments and biological substances
CPT/HCPCS: 99285; 96361; 96374; 96375; 70450; 72125; A9270; J2765; J1170; J2550; J7040

== ENCOUNTER 2020-05-17 14:51 | Emergency (ER) | payer MEDICARE, OTHER, MEDICAID ==
--- NOTE | 2020-05-17 15:53 | RADIOLOGY REPORT (SQ) ---
EXAM DESCRIPTION: CHEST SINGLE VIEW IMAGES COMPLETED DATE/TIME: 05/17/2020 3:27 pm REASON FOR STUDY: cp COMPARISON: None. EXAM PARAMETERS: NUMBER OF VIEWS: One view. TECHNIQUE: Single frontal radiographic view of the chest acquired. RADIATION DOSE: NA LIMITATIONS: None. FINDINGS: LUNGS AND PLEURA: No opacities, masses or pneumothorax. No pleural effusion. MEDIASTINUM AND HILAR STRUCTURES: No masses. Contour normal. HEART AND VASCULAR STRUCTURES: Heart normal in size. Normal vasculature. BONES: No acute findings. HARDWARE: Vascular stent. Vascular access catheter tip in the IVC. OTHER: No other significant finding. IMPRESSION: NO ACUTE RADIOGRAPHIC FINDING IN THE CHEST. TECHNICAL DOCUMENTATION: JOB ID: [id number] 2010 [employer]- All Rights Reserved Reading location - IP/workstation name: [email or web address]
[2020-05-17 16:03] LABS: ABSOLUTE BASOPHILS # (AUTO) 0.1 10^3/uL (0.0-0.2); ABSOLUTE EOSINOPHILS # (AUTO) 0.2 10^3/uL (0.0-0.6); ABSOLUTE LYMPHOCYTES (AUTO) 0.7 10^3/uL (0.5-4.7); ABSOLUTE MONOCYTES (AUTO) 0.5 10^3/uL (0.1-1.4); ABSOLUTE NEUT (AUTO) 2.8 10^3/uL (1.7-8.2); BASOPHILS % (AUTO) 1.2 % (0-2); EOSINOPHILS % (AUTO) 4.8 % (0-6); HEMATOCRIT 26.3 % (36.0-47.0); HEMOGLOBIN 8.3 g/dL (12.0-15.5); LYMPHOCYTES % (AUTO) 17.1 % (13-45); MEAN CORPUSCULAR HEMOGLOBIN 27.1 pg (27.0-33.4); MEAN CORPUSCULAR HGB CONC 31.5 g/dL (32.0-36.0); MEAN CORPUSCULAR VOLUME 86 fl (80-97); MONOCYTES % (AUTO) 11.7 % (3-13); PLATELET COUNT 152 10^3/uL (150-450); RED BLOOD COUNT 3.06 10^6/uL (3.72-5.28); RED CELL DISTRIBUTION WIDTH 16.3 % (11.5-14.0); SEGMENTED NEUTROPHILS % (AUTO) 65.2 % (42-78); TOTAL CELLS COUNTED % (AUTO) 100 %; WHITE BLOOD COUNT 4.4 10^3/uL (4.0-10.5)
[2020-05-17 16:22] LABS: ALBUMIN 3.6 g/dL (3.5-5.0); ALKALINE PHOSPHATASE 190 U/L (38-126); ANION GAP 9 (5-19); ASPARTATE AMINO TRANSFERASE 48 U/L (14-36); BILIRUBIN,DIRECT 0.5 mg/dL (0.0-0.4); BILIRUBIN,TOTAL 0.5 mg/dL (0.2-1.3); BLOOD UREA NITROGEN 50 mg/dL (7-20); CARBON DIOXIDE 24 mmol/L (22-30); CHLORIDE 107 mmol/L (98-107); CREATINE KINASE 44 U/L (30-135); GLUCOSE 136 mg/dL (75-110); POTASSIUM 3.8 mmol/L (3.6-5.0); TOTAL PROTEIN 6.6 g/dL (6.3-8.2)
[2020-05-17 16:35] LABS: TROPONIN I < 0.012 ng/mL
[2020-05-17] MEDS ORDERED: PROMETHAZINE HCL INJ 25 MG/1 ML VIAL IV ONE (16:38)
[2020-05-17] MEDS ORDERED: PROCHLORPERAZINE EDISYLATE INJ 10 MG/2 ML VIAL IV ONE (16:38)
[2020-05-17] MEDS ORDERED: DIPHENHYDRAMINE HCL 50 MG/ML VIAL IV ONE (16:38)
[2020-05-17] MEDS ORDERED: NORMAL SALINE 250 ML IV ONE (16:39)
--- NOTE | 2020-05-17 19:05 | RADIOLOGY REPORT (SQ) ---
EXAM DESCRIPTION: VENOUS UNILATERAL UPPER IMAGES COMPLETED DATE/TIME: 05/17/2020 6:53 pm REASON FOR STUDY: R arm pain/swelling--assess for DVT/fistula COMPARISON: None. None. TECHNIQUE: Dynamic and static mulligan scale and color images acquired of the right arm venous system. S elected spectral images acquired with additional compression and augmentation maneuvers. The contrala teral subclavian vein and internal jugular vein were also imaged. Images stored on PACS. LIMITATIONS: None. FINDINGS: Imaging of the veins of the right upper extremity shows acute thrombus in the subclavian, axillary, brachial, and basilic veins with minimal flow. Thrombus is seen in the fistula. IMPRESSION: Acute DVT in the right upper extremity. There is no flow in the fistula. TECHNICAL DOCUMENTATION: JOB ID: [id number] [employer]- All Rights Reserved Reading location - IP/workstation name: [email or web address]
[2020-05-17] MEDS ORDERED: HYDROMORPHONE HCL INJ/PF 2 MG/ML AMPULE IV ONE (19:08)
--- NOTE | 2020-05-17 19:38 | EKG REPORT ---
SEVERITY:- NORMAL ECG - SINUS RHYTHM : Confirmed by: Moreno Leonard MD 17-May-2020 19:36:33
[2020-05-17] MEDS ORDERED: HEPARIN SOD (PORCINE) 1,000 UNIT/ML 10 ML VIAL IV ONE (20:20)
--- NOTE | 2020-05-17 20:27 | ER Document Report ---
ED General - General Chief Complaint: Arm Pain Stated Complaint: CHEST PAIN/ARM PAIN Time Seen by Provider: 05/17/20 16:16 Primary Care Provider: SHRAVAN DOW PA-C [Primary Care Provider] - Follow up as needed TRAVEL OUTSIDE OF THE [place] IN LAST 30 DAYS: No - HPI Notes: Patient presents with a 4-day history of worsening right upper extremity pain. No history of trauma recently. 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 Has been having pain in the arm to the point where she did not go to dialysis yesterday her normally scheduled day. Comes in today because of increasing pain and swelling. Denies any fever. No shortness of breath. No cough. No hemoptysis. No pain or swelling in her legs. Is not currently anticoagulated. - Related Data Allergies/Adverse Reactions: codeine [Codeine] Allergy (Mild, Verified 04/30/20 06:45) Itching ketorolac tromethamine [From Toradol] Allergy (Unknown, Verified 04/30/20 06:45) Anxiety nalbuphine HCl [From Nubain] Allergy (Unknown, Verified 04/30/20 06:45) Anxiety ondansetron HCl [From Zofran] Allergy (Unknown, Verified 04/30/20 06:45) Itching droperidol [Droperidol] Allergy (Verified 04/30/20 06:45) reports heart racing, doesn't like how it makes her feel prochlorperazine [From Compazine] Allergy (Verified 04/30/20 06:45) Past Medical History - General Information source: Patient, [facility] Records - Social History Smoking Status: Never Smoker Family History: Reviewed & Not Pertinent, CAD, CVA, Hypertension - Medical History Medical History: Other - Past Medical History Cardiac Medical History: Reports: Hx Coronary Artery Disease, Hx Heart Attack - NO INTERVENTION NEEDED 2017, Hx Hypercholesterolemia, Hx Hypertension Pulmonary Medical History: Reports: Hx Asthma - MILD, Hx Sleep Apnea Denies: Hx Bronchitis, Hx COPD, Hx Pneumonia Neurological Medical History: Reports: Hx Migraine. Denies: Hx Cerebrovascular Accident, Hx Seizures Endocrine Medical History: Reports: Hx Diabetes Mellitus Type 2 Renal/ Medical History: Reports: Hx End Stage Renal Disease, Hx Hemodialysis - MWF, Hx Renal Insufficiency. Denies: Hx Peritoneal Dialysis GI Medical History: Reports: Hx Gastroesophageal Reflux Disease, Hx Irritable Bowel Musculoskeletal Medical History: Reports Hx Arthritis, Reports Hx Fibromyalgia, Reports Hx Musculoskeletal Deformity, Reports Hx Musculoskeletal Trauma Skin Medical History: Denies Hx Eczema, Denies Hx Psoriasis Psychiatric Medical History: Reports: Hx Depression, Hx Post Traumatic Stress D isorder Past Surgical History: Reports: Hx Appendectomy, Hx Cardiac Catheterization - 3, Hx Cholecystectomy, Hx Hysterectomy, Hx Orthopedic Surgery - RIGHT ANKLE SURGERY 01/2011, shoulder surgery 12/2106, Hx Thyroid Surgery, Hx Vascular Surgery - port a cath R upper chest. Denies: Hx Pacemaker - Immunizations Hx Diphtheria, Pertussis, Tetanus Vaccination: Yes - 06/17/17 Hx Pneumococcal Vaccination: 04/19/17 Review of Systems - Review of Systems Notes: All other systems reviewed are negative or noncontributory except as noted in history of present illness. Physical Exam - Vital signs Vitals: Temp Pulse Resp BP Pulse Ox 98.1 F 92 22 H 142/73 H 100 05/17/20 15:04 05/17/20 15:04 05/17/20 15:04 05/17/20 15:04 05/17/20 15:04 - Notes Notes: General: This is a well-developed obese female in moderate distress from pain. Vital signs and nursing chief complaint are reviewed. HEENT: Grossly normal to inspection. Neck: Supple, nontender, no adenopathy, no JVD. Lungs: Clear to auscultation all nunes. Heart: Regular rate and rhythm no murmur. Abdomen: Soft nontender no mass organomegaly. Extremities: Without clubbing cyanosis or edema in the lower extremities. Patient does have trace to 1+ edema at the wrist and her right upper extremity. Skin: Warm moist good turgor no rashes. Neurologic: Patient is awake alert fully oriented. No focal motor or sensory deficits are noted. Course - Re-evaluation Re-evalutation: 05/17/20 20:29 Case was discussed with Dr. Douglas, the vascular surgeon on-call at [facility] in [place]. His partner, Dr. Choudhary, has done the patient surgery in the past. Dr. Douglas called me at 1920 hrs. Subsequent to that I was contacted by Dr. Davila, the hospitalist from [facility] at 2015 hrs. He would not consider excepting the patient until he knew her Covid status and until a complete "transfer summary" according to his words was faxed to their hospital. He recommended heparinizing the patient which was ordered. 05/17/20 22:51 Patient was reassessed by me in person at 2250 hrs. prior to transfer. Her condition was stable and there are no contraindications to transfer to [facility]. The patient asked me to speak with her on her phone and so we discussed her condition via speaker phone in the room with the patient participating in the conversation. Both of them thanked me for my time and efforts on her behalf. - Vital Signs Vital signs: Temp Pulse Resp BP Pulse Ox 97.8 F 92 14 140/79 H 100 05/17/20 22:18 05/17/20 15:04 05/17/20 22:31 05/17/20 22:31 05/17/20 22:31 - Laboratory Results Result Diagrams: 05/17/20 15:44 05/17/20 15:44 Laboratory Results Interpreted: 05/17/20 05/17/20 15:44 15:44 RBC 3.06 L Hgb 8.3 L Hct 26.3 L MCHC 31.5 L RDW 16.3 H BUN 50 H Creatinine 6.29 H Est GFR ( Amer) 8 L Est GFR (MDRD) Non-Af 7 L Glucose 136 H Calcium 8.0 L Direct Bilirubin 0.5 H AST 48 H Alkaline Phosphatase 190 H Critical Laboratory Results Reviewed: No Critical Results - Radiology Results Radiology Results Interpreted: 05/17/20 20:28 Chest X-Ray 05/17/20 15:12 IMPRESSION: NO ACUTE RADIOGRAPHIC FINDING IN THE CHEST. Venous Doppler Study 05/17/20 16:36 IMPRESSION: Acute DVT in the right upper extremity. There is no flow in the fistula. Critical Radiology Results Reviewed: No Critical Results - EKG Interpretation by Me EKG shows normal: Sinus rhythm, Treadwell, Intervals, QRS Complexes Discharge - Discharge Clinical Impression: Deep vein thrombosis (DVT) of right upper extremity Qualifiers: Affected thrombotic vein of extremity: unspecified vein of extremity Chronicity: unspecified Qualified Code(s): I82.621 - Acute embolism and thrombosis of deep veins of right upper extremity Thrombosis of arteriovenous dialysis fistula Qualifiers: Encounter type: initial encounter Qualified Code(s): T82.868A - Thrombosis due to vascular prosthetic devices, implants and grafts, initial encounter Condition: Serious Disposition: [facility] Referrals: SHRAVAN DOW PA-C [Primary Care Provider] - Follow up as needed
[2020-05-17 20:33] LABS: PROTHROMBIN TIME 13.4 SEC (11.4-15.4)
[2020-05-17 20:35] LABS: PARTIAL THROMBOPLASTIN TIME 32.3 SEC (23.5-35.8)
[2020-05-17] MEDS ORDERED: HEPARIN SODIUM,PORCINE/D5W 25,000 UNIT/250 ML RTUINJ IV PRN (21:04)
[2020-05-17] MEDS ORDERED: HEPARIN SODIUM,PORCINE/D5W 25,000 UNIT/250 ML RTUINJ IV ONE (21:08)
[2020-05-17] MEDS ORDERED: MORPHINE SULFATE 10 MG/ML INJ IV ONE (22:07)
[2020-05-17 23:14] VITALS: BP 136/81
[2020-05-17] MEDS ORDERED: HEPARIN SOD (PORCINE) 1,000 UNIT/ML 10 ML VIAL IV PRN (23:21)
== END 2020-05-17 23:16 | disposition short-term general hospital (02) ==
LOC: ER 14:51
DX: I82.621 Acute embolism and thrombosis of deep veins of right upper extremity (principal); T82.868A Thrombosis due to vascular prosthetic devices, implants and grafts, initial encounter; M79.601 Pain in right arm; Z20.822 Contact with and (suspected) exposure to COVID-19; I25.10 Atherosclerotic heart disease of native coronary artery without angina pectoris; E78.00 Pure hypercholesterolemia, unspecified; E11.22 Type 2 diabetes mellitus with diabetic chronic kidney disease; I12.0 Hypertensive chronic kidney disease with stage 5 chronic kidney disease or end stage renal disease; N18.6 End stage renal disease; Z99.2 Dependence on renal dialysis; Z88.6 Allergy status to analgesic agent; I25.2 Old myocardial infarction
CPT/HCPCS: 93005; 99285; 96375; 96365; 96366; 36415; 82553; 82962; 82550; 85025; 85610; 85730; 0241U; 80053; 84484; 93971; 71045; 93010; J1644 ×2; J1200; J2270; J1170; J0780; J2550; J7050; C9803

== ENCOUNTER → 2020-05-17 | Outpatient (CLI) | payer MEDICARE, OTHER, MEDICAID | LOC: OD 08:59 | PROVIDERS: ATTEND Orthopaedic Surgery | DX: M75.101 Unspecified rotator cuff tear or rupture of right shoulder, not specified as traumatic (principal) | CPT/HCPCS: 36415; 86140 ==